=== PATIENT | male | born 1970 | race African-American/Black ===

== ENCOUNTER 2020-09-03 06:34 | Outpatient (REF) | payer OTHER, SELFPAY ==
[2020-09-03 07:28] LABS: Mean Corpuscular HGB Conc 34.3 g/dl (31.0-36.0); Mean Corpuscular Volume 84.6 fL (80-98); Mean Platelet Volume 11.8 fL (9.4-12.4); Platelet Count 165 X10*3/uL (160-400); Red Blood Count 2.41 X10*6/uL (4.60-5.80); Red Cell Distribution Width 15.8 % (11.0-16.0); White Blood Count 7.1 X10*3/uL (4.8-10.8)
[2020-09-03 08:07] LABS: Alanine Aminotransferase 30 U/L (0-40); Albumin Level 3.9 g/dL (3.5-5.0); Alkaline Phosphatase 63 U/L (39-117); Anion Gap 22 (12-20); Aspartate Amino Transferase 27 U/L (5-37); Bilirubin Total 0.5 mg/dL (0.0-1.0); Blood Urea Nitrogen 110 mg/dL (9-16); Calcium 7.8 mg/dL (8.4-10.2); Carbon Dioxide 18 mmol/L (22-29); Chloride 98 mmol/L (96-108); Estimated Glomerular Filt Rate 5; Glucose Fasting 411 mg/dL (60-99); Potassium 6.1 mmol/l (3.3-5.1); Sodium 132 mmol/L (135-145); Total Protein 5.1 g/dL (6.5-8.0)
[2020-09-03 08:18] LABS: Hematocrit 20.4 % (42-52)
== END 2020-09-03 06:35 | disposition home or self-care (01) ==
LOC: HO.MMNH1L 06:34
PROVIDERS: Visit Provider Internal Medicine
DX: Z20.822 Contact with and (suspected) exposure to COVID-19 (principal)
CPT/HCPCS: 36415; 80053; 85027; 85060

== ENCOUNTER 2021-01-30 14:22 | Emergency (ER) | payer OTHER, SELFPAY ==
--- NOTE | ~2021-01-30 | CT_ITS ---
Examination: CT knee LT wo con Indication: Status post fall increased pain unable to ambulate, xray neg Comparison: No pertinent prior studies are currently available for comparison. Technique: Multiple serial thin slice helical CT scan images through the left knee obtained. This CT examination was performed using dose optimization techniques as appropriate, variously including the following: *Automated exposure control *Adjustment of mA and/or kV according to patient size (this includes techniques or standardized protocols for targeted exams where dose is matched to indication/reason for exam; i.e. extremities or head) *Use of iterative reconstruction technique Findings: Moderately large joint effusion. Mild degenerative changes with tiny osteophyte formation seen but I do not appreciate any acute fracture or dislocation. Extensive vascular calcification present. Mild prepatellar soft tissue swelling noted. CT/CT knee LT wo con Impression: Large joint effusion. Mild degenerative changes but no acute fracture or dislocation. MRI may be helpful to better evaluate the underlying soft tissues of the knee. Mild prepatellar soft tissue swelling.
[2021-01-30 14:33] VITALS: BP 151/75; PULSE 86; RESP 18; TEMP 36.9; O2SAT 97; BMI 26.1
--- NOTE | 2021-01-30 16:31 | ED_ITS ---
HPI - Fall General Chief Complaint: Fall <Jasen Toth MD - Last Filed: 01/31/21 00:52> Stated Complaint: L LEG AND KNEE ISSUE <Jasen Toth MD - Last Filed: 01/31/21 00:52> Time Seen by Provider: 01/30/21 16:31 <Jasen Toth MD - Last Filed: 01/31/21 00:52> Source: patient <Jasen Toth MD - Last Filed: 01/31/21 00:52> Mode of arrival: wheelchair <Jasen Toth MD - Last Filed: 01/31/21 00:52> Limitations: no limitations <Jasen Toth MD - Last Filed: 01/31/21 00:52> History of Present Illness HPI Narrative: Patient's history of end-stage renal disease on dialysis apparently fell last week landed on his left knee was good for 4 days and since yesterday unable to walk because the pain knees left knee is giving out been falling since yesterday evening fell about 4 times since then. Patient went to [facility] was waiting in the waiting area at the x-ray done which was negative for fracture but patient could not wait longer and she came here no other injuries patient's apartment is 2nd floor has 13 steps to reach to his room. Patient denies any history of joint pains in the past no history of gout no fever or chills <Jasen Toth MD - Last Filed: 01/31/21 00:52> MD complaint: fall <Jasen Toth MD - Last Filed: 01/31/21 00:52> Related Data Home Medications: Home Medications Medication Instructions Recorded Confirmed amlodipine 10 mg PO DAILY 01/30/21 01/31/21 brimonidine 1 drp OPHTHALMIC (EYE) BID 01/30/21 01/30/21 clonidine HCl 0.1 mg PO BID 01/30/21 01/31/21 ergocalciferol (vitamin D2) 1 cap PO DE OLIVEIRA 01/30/21 01/30/21 insulin lispro [Humalog U-100 500 unit SUBCUT Q3D 01/30/21 01/30/21 Insulin] ipratropium bromide 1 spray INTRANASAL BEDTIME PRN 01/30/21 01/30/21 latanoprost 1 drp OPHTHALMIC (EYE) BEDTIME 01/30/21 01/30/21 meclizine 25 mg PO TID PRN 01/30/21 01/31/21 mycophenolate sodium 3 tab PO BID 01/30/21 01/30/21 omeprazole 20 mg PO DAILY 01/30/21 01/30/21 prednisone 5 mg PO DAILY 01/30/21 01/30/21 sevelamer carbonate 800 mg PO TID 01/30/21 01/31/21 subcutaneous insulin pump [MiniMed 01/30/21 01/30/21 670G Insulin Pump] gabapentin 600 mg PO TID 01/31/21 01/31/21 <Jasen Toth MD - Last Filed: 01/31/21 00:52> Allergies/Adverse Reactions: Allergies Allergy/AdvReac Type Severity Reaction Status Date / Time cefazolin [From ANCEF] Allergy Severe ? Unverified 05/11/20 16:58 ALLERGY-COUGH,SOB fentanyl [FENTANYL] Allergy Severe ? ALLERGY, Unverified 05/11/20 16:58 COUGH,SOB <Jasen Toth MD - Last Filed: 01/31/21 00:52> Review of Systems Review of Systems: Constitutional : No Weight loss, No Fever, No Chills ENT/Mouth : No sore throat, No Rhinorrhea Eyes: No Eye Pain, No Swelling Cardiovascular : No Chest Pain, no palpitations Respiratory : No Cough, No Sputum, no shortness of breath Gastrointestinal : no Nausea, No Vomiting, No Diarrhea, No abdominal Pain, no black stools Genitourinary : No Dysuria, No Urinary Frequency Musculoskeletal : ++ joint pain, No Myalgias, No Joint Swelling Skin : No Skin Lesions, No rash Neuro : No Weakness, No Numbness, No Dizziness, No Headache Psych : No Anxiety/Panic, No Depression Heme/Lymph: No Bruising, No Lymphadenopathy Endocrine : No Polyuria, No Polydipsia All other systems reviewed and are negative <Jasen Toth MD - Last Filed: 01/31/21 00:52> [facility] Social History Social History: Social History Advance Directives: Yes Advance Directives on File: Yes Advance Directives Date on File: 01/31/21 <Jasen Toth MD - Last Filed: 01/31/21 00:52> Physical Exam Vital Signs: Vital Signs: Last Vital Signs Temp 98.3 F 01/31/21 21:21 Pulse 83 01/31/21 21:21 Resp 02/01/21 00:00 BP 148/66 H 01/31/21 21:21 Pulse Ox 97 01/31/21 21:21 Body Mass Index 26.1 <Jasen Toth MD - Last Filed: 01/31/21 00:52> Vital Signs: Last Vital Signs Temp 98.3 F 01/31/21 21:21 Pulse 83 01/31/21 21:21 Resp 02/01/21 00:00 BP 148/66 H 01/31/21 21:21 Pulse Ox 97 01/31/21 21:21 Body Mass Index 26.1 <WILI Mcdaniel - Last Filed: 01/31/21 08:24> Vital Signs: Last Vital Signs Temp 98.3 F 01/31/21 21:21 Pulse 83 01/31/21 21:21 Resp 02/01/21 00:00 BP 148/66 H 01/31/21 21:21 Pulse Ox 97 01/31/21 21:21 Body Mass Index 26.1 <WILI Tomlinson - Last Filed: 02/01/21 08:39> Const: General: healthy appearing, comfortable and no acute distress <Jasen Toth MD - Last Filed: 01/31/21 00:52> Orientation/consciousness: patient oriented x3 <Jasen Toth MD - Last Filed: 01/31/21 00:52> HENMT: Head: Yes normocephalic and Yes atraumatic <Jasen Toth MD - Last Filed: 01/31/21 00:52> Eyes: General: appearance normal, both eyes and all related structures <Jasen Toth MD - Last Filed: 01/31/21 00:52> Neck: Neck: Yes normal visual inspection, Yes full ROM and No midline deformity <Jasen Toth MD - Last Filed: 01/31/21 00:52> Chest: Other: Shiley catheter in right chest wall <Jasen Toth MD - Last Filed: 01/31/21 00:52> Chest palpation & inspection: normal inspection of the chest <Jasen Toth MD - Last Filed: 01/31/21 00:52> Resp: Effort & Inspection: normal respiratory effort <Jasen Toth MD - Last Filed: 01/31/21 00:52> Auscultation: clear to auscultation bilaterally <Jasen Toth MD - Last Filed: 01/31/21 00:52> Cardio: Palpation: normal PMI <Jasen Toth MD - Last Filed: 01/31/21 00:52> Rate: regular rate <Jasen Toth MD - Last Filed: 01/31/21 00:52> Rhythm: regular rhythm <Jasen Toth MD - Last Filed: 01/31/21 00:52> Heart sounds: S1 normal heart sound present and S2 normal heart sound present <MD Moises Jimenez Last Filed: 01/31/21 00:52> GI: Inspection: Yes normal to inspection <Jasen Toth MD - Last Filed: 01/31/21 00:52> Palpation (GI): Soft to palpation and nontender <Jasen Toth MD - Last Filed: 01/31/21 00:52> Auscultation: normal bowel sounds <Jasen Toth MD - Last Filed: 01/31/21 00:52> : General: Yes no CVA tenderness <Jasen Toth MD - Last Filed: 01/31/21 00:52> Back/Spine/Pelvis: Back: no CVA tenderness <Jasen Toth MD - Last Filed: 01/31/21 00:52> Thoracic/Lumbar Spine: thoracic and lumbar spine normal to inspection <Jasen Toth MD - Last Filed: 01/31/21 00:52> Neuro: General: patient oriented x3 and no focal motor deficits <MD Moises Jimenez Last Filed: 01/31/21 00:52> Extrem: General: Yes normal to inspection <MD Moises Jimenez Last Filed: 01/31/21 00:52> Course Course Course Narrative: Physician observation started at 8am. Patient placed in [facility] because patient is awaiting placement to short term rehab. He was seen by physical therapy who is recommending rehab. At the time observation was started patient's vital signs were stable. Patient is alert and oriented. c/o left knee pain. PRN oxycodone ordered. Will need to f/u with Ortho. Neuro exam is non- focal. CV: RRR and lungs are clear. Will continue to monitor. <WILI Mcdaniel - Last Filed: 01/31/21 08:24> MDM - Fall MDM Narrative Medical decision making narrative: Patient with left knee injury without any fracture in x-ray CT scan done which was also negative for any fracture but showed moderate amount of knee effusion. Patient able to ambulate even with walker and assistance because of pain plan to send the patient to rehab as patient least 2nd floor and unable to go to his room and been falling multiple times because of pain and legs giving out <Jasen Toth MD - Last Filed: 01/31/21 00:52> Medical Records Attestation: I reviewed the patient's medical records. <Jasen Toth MD - Last Filed: 01/31/21 00:52> Lab Data Attestation: I reviewed the patient's lab results. <Jasen Toth MD - Last Filed: 0 01/31/21 00:52> Result diagrams: : 01/30/21 19:37 01/30/21 19:37 <Jasen Toth MD - Last Filed: 01/31/21 00:52> Labs: Lab Results 01/30/21 01/30/21 01/30/21 Range/Units 19:23 19:37 19:37 WBC 3.1 L (4.8-10.8) X10*3/uL RBC 2.78 L (4.60-5.80) X10*6/uL Hgb 7.8 L (14.0-18.0) g/dl Hct 25.2 L D (42-52) % MCV 90.6 (80-98) fL MCH 28.1 (27.0-33.0) pg MCHC 31.0 (31.0-36.0) g/dl RDW 14.6 (11.0-16.0) % Plt Count 197 (160-400) X10*3/uL MPV 10.0 (9.4-12.4) fL Immature Gran % (Auto) Cancelled Neut % (Auto) Cancelled Lymph % (Auto) Cancelled [place] % (Auto) Cancelled Eos % (Auto) Cancelled Baso % (Auto) Cancelled Lymph # (Auto) Cancelled [place] # (Auto) Cancelled Eos # (Auto) Cancelled Baso # (Auto) Cancelled Abs Immat Gran (auto) Cancelled Absolute Neuts (auto) Cancelled Absolute Nucleated RBC 0.000 (0.0-0.012) X10*3/uL Nucleated RBC % (auto) 0.0 (0.0-0.2) /100WBC Neutrophils % (Manual) 76 H (45-73) % Band Neutrophils % 6 H (3-5) % Lymphocytes % (Manual) 8 L (20-40) % Monocytes % (Manual) 7 (2-11) % Basophils % (Manual) 1 (0-1) % Myelocytes % 1 % Promyelocytes % 1 % Abs Neuts (Manual) 2.5 (2.2-7.9) X10*3/uL Lymphocytes # (Manual) 0.2 L (0.6-4.8) X10*3/uL Monocytes # (Manual) 0.2 (0.0-1.2) X10*3/uL Platelet Estimate NORMAL (NORMAL) Plt Morphology Comment NORMAL RBC Morphology NOTED Polychromasia 1+ (0-2) /OIF Microcytosis 1+ (5-14) /OIF Tear Drop Cells 1+ (0-2) /OIF Sodium 136 (135-145) mmol/L Potassium 3.7 (3.3-5.1) mmol/L Chloride 97 (96-108) mmol/L Carbon Dioxide 26 (22-29) mmol/L Anion Gap 17 (12-20) BUN 29 H D (9-16) mg/dL Creatinine 4.25 H* (0.5-1.4) mg/dL Estim Creat Clear Calc 20.1 Estimated GFR 15 Random Glucose 146 H (60-115) mg/dL Calcium 9.1 D (8.4-10.2) mg/dL COVID-19 (BALDEV) Negative (Negative) COVID-19 Clin Com See Note <Jasen Toth MD - Last Filed: 01/31/21 00:52> Lab Results 01/30/21 01/30/21 01/30/21 Range/Units 19:23 19:37 19:37 WBC 3.1 L (4.8-10.8) X10*3/uL RBC 2.78 L (4.60-5.80) X10*6/uL Hgb 7.8 L (14.0-18.0) g/dl Hct 25.2 L D (42-52) % MCV 90.6 (80-98) fL MCH 28.1 (27.0-33.0) pg MCHC 31.0 (31.0-36.0) g/dl RDW 14.6 (11.0-16.0) % Plt Count 197 (160-400) X10*3/uL MPV 10.0 (9.4-12.4) fL Immature Gran % (Auto) Cancelled Neut % (Auto) Cancelled Lymph % (Auto) Cancelled [place] % (Auto) Cancelled Eos % (Auto) Cancelled Baso % (Auto) Cancelled Lymph # (Auto) Cancelled [place] # (Auto) Cancelled Eos # (Auto) Cancelled Baso # (Auto) Cancelled Abs Immat Gran (auto) Cancelled Absolute Neuts (auto) Cancelled Absolute Nucleated RBC 0.000 (0.0-0.012) X10*3/uL Nucleated RBC % (auto) 0.0 (0.0-0.2) /100WBC Neutrophils % (Manual) 76 H (45-73) % Band Neutrophils % 6 H (3-5) % Lymphocytes % (Manual) 8 L (20-40) % Monocytes % (Manual) 7 (2-11) % Basophils % (Manual) 1 (0-1) % Myelocytes % 1 % Promyelocytes % 1 % Abs Neuts (Manual) 2.5 (2.2-7.9) X10*3/uL Lymphocytes # (Manual) 0.2 L (0.6-4.8) X10*3/uL Monocytes # (Manual) 0.2 (0.0-1.2) X10*3/uL Platelet Estimate NORMAL (NORMAL) Plt Morphology Comment NORMAL RBC Morphology NOTED Polychromasia 1+ (0-2) /OIF Microcytosis 1+ (5-14) /OIF Tear Drop Cells 1+ (0-2) /OIF Sodium 136 (135-145) mmol/L Potassium 3.7 (3.3-5.1) mmol/L Chloride 97 (96-108) mmol/L Carbon Dioxide 26 (22-29) mmol/L Anion Gap 17 (12-20) BUN 29 H D (9-16) mg/dL Creatinine 4.25 H* (0.5-1.4) mg/dL Estim Creat Clear Calc 20.1 Estimated GFR 15 Random Glucose 146 H (60-115) mg/dL Calcium 9.1 D (8.4-10.2) mg/dL COVID-19 (BALDEV) Negative (Negative) COVID-19 Clin Com See Note <WILI Mcdaniel - Last Filed: 01/31/21 08:24> Lab Results 01/30/21 01/30/21 01/30/21 Range/Units 19:23 19:37 19:37 WBC 3.1 L (4.8-10.8) X10*3/uL RBC 2.78 L (4.60-5.80) X10*6/uL Hgb 7.8 L (14.0-18.0) g/dl Hct 25.2 L D (42-52) % MCV 90.6 (80-98) fL MCH 28.1 (27.0-33.0) pg MCHC 31.0 (31.0-36.0) g/dl RDW 14.6 (11.0-16.0) % Plt Count 197 (160-400) X10*3/uL MPV 10.0 (9.4-12.4) fL Immature Gran % (Auto) Cancelled Neut % (Auto) Cancelled Lymph % (Auto) Cancelled [place] % (Auto) Cancelled Eos % (Auto) Cancelled Baso % (Auto) Cancelled Lymph # (Auto) Cancelled [place] # (Auto) Cancelled Eos # (Auto) Cancelled Baso # (Auto) Cancelled Abs Immat Gran (auto) Cancelled Absolute Neuts (auto) Cancelled Absolute Nucleated RBC 0.000 (0.0-0.012) X10*3/uL Nucleated RBC % (auto) 0.0 (0.0-0.2) /100WBC Neutrophils % (Manual) 76 H (45-73) % Band Neutrophils % 6 H (3-5) % Lymphocytes % (Manual) 8 L (20-40) % Monocytes % (Manual) 7 (2-11) % Basophils % (Manual) 1 (0-1) % Myelocytes % 1 % Promyelocytes % 1 % Abs Neuts (Manual) 2.5 (2.2-7.9) X10*3/uL Lymphocytes # (Manual) 0.2 L (0.6-4.8) X10*3/uL Monocytes # (Manual) 0.2 (0.0-1.2) X10*3/uL Platelet Estimate NORMAL (NORMAL) Plt Morphology Comment NORMAL RBC Morphology NOTED Polychromasia 1+ (0-2) /OIF Microcytosis 1+ (5-14) /OIF Tear Drop Cells 1+ (0-2) /OIF Sodium 136 (135-145) mmol/L Potassium 3.7 (3.3-5.1) mmol/L Chloride 97 (96-108) mmol/L Carbon Dioxide 26 (22-29) mmol/L Anion Gap 17 (12-20) BUN 29 H D (9-16) mg/dL Creatinine 4.25 H* (0.5-1.4) mg/dL Estim Creat Clear Calc 20.1 Estimated GFR 15 Random Glucose 146 H (60-115) mg/dL Calcium 9.1 D (8.4-10.2) mg/dL COVID-19 (BALDEV) Negative (Negative) COVID-19 Clin Com See Note <WILI Tomlinson - Last Filed: 02/01/21 08:39> Imaging Data CT scan left knee: Attestation: I personally reviewed and interpreted this imaging study as follows: <Jasen Toth MD - Last Filed: 01/31/21 00:52> Radiologist's impression: [address] [id number] Scan ReportSigned Patient: Wilfrido Garza JMR#: [id number]: 1970Acct:[id number]/Sex: 50 / MADM Date: 01/30/21Loc: [address]: Ordering Physician: Jasen Toth MD Date of Service: 01/30/21 Procedure(s): CT knee LT wo con Accession Number(s): [id number] cc: Jasen Toth MD~ Examination: CT knee LT wo con Indication: Status post fall increased pain unable to ambulate, xray neg Comparison: No pertinent prior studies are currently available for comparison. Technique: Multiple serial thin slice helical CT scan images through the left knee obtained. This CT examination was performed using dose optimization techniques as appropriate, variously including the following: *Automated exposure control *Adjustment of mA and/or kV according to patient size (this includes techniques or standardized protocols for targeted exams where dose is matched to indication/reason for exam; i.e. extremities or head) *Use of iterative reconstruction technique Findings: Moderately large joint effusion. Mild degenerative changes with tiny osteophyte formation seen but I do not appreciate any acute fracture or dislocation. Extensive vascular calcification present. Mild prepatellar soft tissue swelling noted. CT/CT knee LT wo con Impression: Large joint effusion. Mild degenerative changes but no acute fracture or dislocation. MRI may be helpful to better evaluate the underlying soft tissues of the knee. Mild prepatellar soft tissue swelling. Dictated By:LINDA ROSSI MDSigned By:<Electronically signed by LINDA ROSSI MD in OV> <Jasen Toth MD - Last Filed: 01/31/21 00:52> Discharge Plan Discharge Clinical Impression: Chronic kidney disease with end stage renal failure on dialysis, Arthritis of knee, left Anemia, chronic renal failure Qualifiers: Chronic kidney disease stage: stage 5 Qualified Code(s): N18.5 - Chronic kidney disease, stage 5 <Jasen Toth MD - Last Filed: 01/31/21 00:52> Patient Disposition: [facility] <Jasen Toth MD - Last Filed: 01/31/21 00:52> Instructions: Swollen Knee Joint (ED) <Jasen Toth MD - Last Filed: 01/31/21 00:52> Additional Instructions: Your CT scan showed fluid around the knee joint, which is most likely due to the fall. Recommend PARESH wrap for compression and support. You may bear weight as tolerated. Take oxycodone as needed for severe pain. Recommend following up with the Orthopedic doctors for further management - number listed below. <Jasen Toth MD - Last Filed: 01/31/21 00:52> Prescriptions: No Action latanoprost 0.005 % drops 1 drp ophthalmic (eye) BEDTIME RF: 0 clonidine HCl 0.1 mg tablet 0.1 mg PO BID RF: 0 prednisone 5 mg tablet 5 mg PO DAILY RF: 0 meclizine 25 mg tablet 25 mg PO TID PRN (Reason: Vertigo) RF: 0 amlodipine 10 mg tablet 10 mg PO DAILY RF: 0 brimonidine 0.2 % drops 1 drp ophthalmic (eye) BID RF: 0 omeprazole 20 mg capsule,delayed release(DR/EC) 20 mg PO DAILY RF: 0 ergocalciferol (vitamin D2) 1,250 mcg (50,000 unit) capsule 1 cap PO DE OLIVEIRA RF: 0 ipratropium bromide 21 mcg (0.03 %) spray,non-aerosol 1 spray intranasal BEDTIME PRN (Reason: Allergy Symptoms) RF: 0 mycophenolate sodium 180 mg tablet,delayed release (DR/EC) 3 tab PO BID RF: 0 sevelamer carbonate 800 mg tablet 800 mg PO TID RF: 0 insulin lispro [Humalog U-100 Insulin] 100 unit/mL Solution 500 unit SUBCUT Q3D RF: 0 (DME) MiniMed 670G Insulin Pump Misc MISCELLANEOUS RF: 0 gabapentin 600 mg tablet 600 mg PO TID RF: 0 <Jasen Toth MD - Last Filed: 01/31/21 00:52> Referrals: Master Hector MD [Physician] - 2 days (large left knee effusion) <Jasen Toth MD - Last Filed: 01/31/21 00:52> ED Observation ED Observation Progress Notes 1: Progress Note: 02/01/21 - 08:28 WILI Tomlinson - physician observation continued. Vital signs remained stable within normal limits. Patient had an uneventful night. This morning the patient complained to the nurse that he wanted medication for his left knee pain and reported that the 5 mg oxycodone every 6 hours that they are giving him is not providing much symptomatic relief and is requesting different pain medications. He read ports that the Paresh bandage was making it worse therefore he took off the Paresh bandage. He just finished eating breakfast. Denied any additional complaints or concerns. No focal neural deficits are noted. Lungs clear to auscultation. CV RRR. Abdomen is soft and nontender. I changed the patient's 5 mg oxycodone to every 4 hours and also provided an order for 10 mg extended release oxycodone b.i.d. to better manage the patient's pain. Patient was able to reposition himself without difficulty in and out of bed. Case management with possible placement to [facility] most likely patient will go today. Will continue to monitor until then. <WILI Tomlinson - Last Filed: 02/01/21 08:39>
[2021-01-30] MEDS: oxyCODONE HCl Immed Release 5 MG TABLET 10 MG PO (17:17)
--- NOTE | 2021-01-30 19:02 | MHC.CM.ED ---
CM met with patient at request of Dr. Toth.Per Dr. Toth, knee xray negative and pt cannot ambulate or bear weight on his left leg. Asked CM to speak with pt. Pt tells CM he lives alone, uses a walker and has dialysis at [facility] on Friday, and Friday. Pt tells CM that he fell on and his left knee was bothering him, but he could walk with his walker. Progressively got worse by Friday and today he cannot bear weight on his left leg. Pt tells CM he fell 4 times last night and twice today. Pt did have dialysis today. Pt has history of kidney failure with kidney transplant in 2010. Pt tells CM the kidney is not working and has surgery scheduled at [facility] on 02/14 to remove it. Pt has hx of vertigo since 2018 when he had a shingles outbreak. Pt has diabetes and has an insulin pump. Pt has hx diabetic neuropathy and glaucoma. Pt also has hypertension and high cholesterol. Pt attempted to get up with walker to stand and was unable to bear weight on his left leg. aware. Will order at CT scan. CM spoke with MD regarding need for PT evaluation regardless of CT results, as pt is not safe to go home. Report of above reported to Dominic JESSICA. CM to follow for d/c needs.
[2021-01-30 19:10] VITALS: BP 143/85; PULSE 97; RESP 16; O2SAT 98
[2021-01-30 19:13] VITALS: BP 143/85; PULSE 94; RESP 16
--- NOTE | 2021-01-30 19:27 | MHC.CM.ED ---
CM spoke with Dr. Toth. CT of knee and basic labs ordered. Pt aware of plan of care. CM to follow for d/c needs.
[2021-01-30 19:43] LABS: Hematocrit 25.2 % (42-52); Hemoglobin 7.8 g/dl (14.0-18.0); Mean Corpuscular Hemoglobin 28.1 pg (27.0-33.0); Mean Corpuscular Volume 90.6 fL (80-98); Platelet Count 197 X10*3/uL (160-400); Red Blood Count 2.78 X10*6/uL (4.60-5.80); Red Cell Distribution Width 14.6 % (11.0-16.0); White Blood Count 3.1 X10*3/uL (4.8-10.8)
[2021-01-30 19:56] LABS: COVID-19 Test Negative (Negative); IDNOW Serial# 9DD0AD1C
[2021-01-30 20:21] LABS: Anion Gap 17 (12-20); Blood Urea Nitrogen 29 mg/dL (9-16); Calcium 9.1 mg/dL (8.4-10.2); Carbon Dioxide 26 mmol/L (22-29); Chloride 97 mmol/L (96-108); Creatinine Clr Calc Pharmacy 20.1; Estimated Glomerular Filt Rate 15; Glucose Random 146 mg/dL (60-115); Potassium 3.7 mmol/L (3.3-5.1); Sodium 136 mmol/L (135-145)
[2021-01-30 21:19] LABS: Band Neutrophils Percent 6 % (3-5); Basophils Percent Manual 1 % (0-1); Lymphocytes Absolute Manual 0.2 X10*3/uL (0.6-4.8); Lymphocytes Percent Manual 8 % (20-40); Monocytes Absolute Manual 0.2 X10*3/uL (0.0-1.2); Monocytes Percent Manual 7 % (2-11); Myelocytes Percent 1 %; Neutrophils Absolute Manual 2.5 X10*3/uL (2.2-7.9); Neutrophils Percent Manual 76 % (45-73); Promyelocytes Percent 1 %
[2021-01-30 21:22] LABS: Polychromasia 1+ (0-2) /OIF; RBC Morphology NOTED
[2021-01-30 21:24] LABS: Tear Drop Cells 1+ (0-2) /OIF
[2021-01-30 21:25] LABS: Platelet Estimate NORMAL (NORMAL); Platelet Morphology Comment NORMAL
[2021-01-30 21:26] LABS: Microcytosis 1+ (5-14) /OIF
--- NOTE | 2021-01-30 22:23 | HE.PHANOTE ---
Pharmacy has completed the medication reconciliation and there were no significant medication issues requiring provider attention.
[2021-01-31] VITALS (12 sets, daily range): BP systolic 105–148; BP diastolic 54–83; PULSE 81–92; RESP 16–17; TEMP 36.8–37.2; O2SAT 94–99
[2021-01-31] MEDS: oxyCODONE HCl Immed Release 5 MG TABLET PO ×3 (00:40→08:46)
[2021-01-31] MEDS: Omeprazole 20 MG CAPSULE.DR PO (07:03)
[2021-01-31] MEDS: Subcutaneous Insulin Pump 1 EACH SUBCUT ×4 (07:39→21:14)
--- NOTE | 2021-01-31 10:04 | MHC.CM.ED ---
Patient remains in ER. Physical therapy eval completed. Short term rehab is recommended. Patient requesting referral [facility] Referral made via [employer]. Continue to monitor for d/c needs. Patient had 2nd Pfizer about a month ago.
[2021-01-31] MEDS: Mycophenolate Sodium 180 MG TABLET.DR 540 MG PO ×2 (10:40→21:13)
[2021-01-31] MEDS: cloNIDine HCL 0.1 MG TABLET PO ×2 (10:40→21:12)
[2021-01-31] MEDS: amLODIPine Besylate 10 MG TABLET PO (10:41)
[2021-01-31] MEDS: predniSONE 5 MG TABLET PO (10:41)
[2021-01-31] MEDS: Gabapentin 600 MG TABLET 1200 MG PO (10:41)
[2021-01-31] MEDS: Brimonidine Tartrate 0.2% Oph 5 ML BOTTLE 1 DROP EYE-BOTH ×2 (10:42→21:12)
[2021-01-31] MEDS: Sevelamer Carbonate Tablet 800 MG TABLET PO ×3 (10:42→21:13)
[2021-01-31] MEDS: Meclizine HCl 25 MG TABLET PO ×2 (10:42→16:42)
--- NOTE | 2021-01-31 11:33 | MHC.CM.ED ---
Attempted to meet with patient to updated on discharge plan. Patient is currently sleeping. Will attempt to meet again. Continue to monitor for d/c needs.
--- NOTE | 2021-01-31 16:40 | MHC.CM.ED ---
CM met with patient. aware that at this time, we have no bed offers from [facility] or [facility]. CM to check in with [facility] tomorrow. Pt understands that we must refer to facilities that accept his insurance and that offer dialysis, to prevent him from being billed for transportation 3 times a week. CM will follow for d/c needs.
[2021-01-31] MEDS: Gabapentin 600 MG TABLET 300 MG PO ×2 (17:07→21:14)
--- NOTE | 2021-01-31 17:09 | MHC.CM.ED ---
KATHLEEN received a call from Millicent moreno from [facility]. She tells me that they will do everything in their power to accommodate this pt and have a bed for him tomorrow. They may need to move patients around. Millicent requests that we let her know if [facility] has a bed tomorrow. Asked that Melissa Patel CM call her in the am. Melissa aware. KATHLEEN will continue to follow for d/c needs.
--- NOTE | 2021-01-31 19:37 | PC.NURSE ---
REPORT TAKEN FROM VASILE Lopez RN FIRST CONTACT WITH PT. RESTING IN BED EYES CLOSED, SKIN PWD RESPIRATIONS EVEN UNLABORED. CASE MANAGEMENT REFERRAL- ? POSSIBLE PLACEMENT AT [facility] TOMORROW. WILL CONTINUE TO MONITOR.
[2021-01-31] MEDS: Latanoprost 0.005 % Ophth Sol 2.5 ML DROPS 1 DROP EYE-BOTH (21:12)
--- NOTE | 2021-01-31 22:26 | PC.NURSE ---
PT MEDICATED WITHE PM MEDS, WARM BLANKET GIVEN. OFFERS NO COMPLAINTS AT THIS TIME. INQUIRING ABOUT DIALYSIS TOMORROW- YANA WANG STATES PT WILL BE GOING BACK TO [facility] TOMORROW AND RECIEVING DIALYSIS THERE. PT NOTIFIED AND VERBALIZED UNDERSTANDING.VSS, WILL CONTINUE TO MONITOR.
--- NOTE | 2021-01-31 23:50 | PC.NURSE ---
PT CONTINUES TO REST IN BED, EYES CLOSED, SKIN PWD, RESPIRATIONS EVEN UNLABORED. NO DISTRESS NOTED. WILL CONTINUE TO MONITOR.
[2021-02-01] VITALS: RESP 16
--- NOTE | 2021-02-01 02:13 | PC.NURSE ---
PT RESTING IN BED SKIN PWD RESPIRATIONS EVEN UNLABORED, NO DISTRESS NOTED. AWAITING CASE MANAGEMENT PLACEMENT TOMORROW.
[2021-02-01] MEDS: oxyCODONE HCl Immed Release 5 MG TABLET PO ×2 (03:56→16:18)
--- NOTE | 2021-02-01 04:09 | PC.NURSE ---
PT MEDICATED PRN FOR LEFT KNEE PAIN 5/10. PILLOW PLACED UNDER LEG WITH POSITIVE RELIEF.
[2021-02-01] MEDS: Omeprazole 20 MG CAPSULE.DR PO (06:52)
[2021-02-01] MEDS: Subcutaneous Insulin Pump 1 EACH SUBCUT ×3 (07:35→17:00)
--- NOTE | 2021-02-01 07:37 | PC.NURSE ---
report taken from JASKARAN Bates. pt in room, requesting pain medication for L knee. Pt states the Oxy they gave me last time didn't help I think I need an increased dose . t/w offered alternative pain management to which pt refused all. t/w took the Paresh bandage off the L knee as pt reports the paresh bandage made it worse . pt eating breakfast, requesting pain medications, pt able to reposition himself without difficulty into and out of bed. will speak with PA coming on regarding pain medications.
--- NOTE | 2021-02-01 08:37 | MHC.CM.ED ---
Patient remains in ER. Spoke with Delores at [facility]. They have to make some bed changes and will be able to accommodate the patient today once insurance auth has been obained. Continue to monitor for d/c needs.
[2021-02-01 08:50] VITALS: BP 151/75; PULSE 83; RESP 16; O2SAT 97
[2021-02-01] MEDS: Brimonidine Tartrate 0.2% Oph 5 ML BOTTLE 1 DROP EYE-BOTH (08:58)
[2021-02-01] MEDS: Gabapentin 600 MG TABLET PO ×2 (09:40→16:16)
[2021-02-01] MEDS: predniSONE 5 MG TABLET PO (09:40)
[2021-02-01] MEDS: Mycophenolate Sodium 180 MG TABLET.DR 540 MG PO (09:40)
[2021-02-01] MEDS: Sevelamer Carbonate Tablet 800 MG TABLET PO ×2 (09:40→16:15)
[2021-02-01 09:53] VITALS: BP 151/75; PULSE 83
[2021-02-01] MEDS: amLODIPine Besylate 10 MG TABLET PO (09:53)
[2021-02-01] MEDS: cloNIDine HCL 0.1 MG TABLET PO (09:53)
[2021-02-01] MEDS: oxyCODONE HCl ER 10 MG TAB.ER.12H PO (09:54)
[2021-02-01 13:41] VITALS: BP 137/76; PULSE 81; RESP 16; O2SAT 96
[2021-02-01 15:09] LABS: Glucose, Whole Blood 94 mg/dL (60-115)
--- NOTE | 2021-02-01 15:43 | PC.NURSE ---
pt in room resting quietly. pt concerned regarding time he will be leaving as [facility] only has dialysis until 4:00 PM . awaiting insurance authorization to return to [facility]. Vitals otherwise stable.
[2021-02-01 15:48] VITALS: BP 134/74; PULSE 92; RESP 17; O2SAT 96
--- NOTE | 2021-02-01 16:18 | MHC.CM.ED ---
Insurance auth has been obtained by [facility]. Patient can leave at 5pm. Attempted to arrange [facility]. However they can not transport patient before 8pm. [facility] booked. Med nec with chart. Patient, Jaymie JESSICA and Nely RASHEED aware. Continue to monitor for d/c needs.
== END 2021-02-01 19:18 ==
PROVIDERS: Emergency Provider Internal Medicine; PCP Internal Medicine
DX: M25.462 Effusion, left knee (principal); M17.12 Unilateral primary osteoarthritis, left knee; R29.6 Repeated falls; N18.6 End stage renal disease; Z20.822 Contact with and (suspected) exposure to COVID-19; Z91.81 History of falling; Z79.899 Other long term (current) drug therapy; Z99.2 Dependence on renal dialysis
CPT/HCPCS: 36415; 73700; 80048; 82947; 85007; 85027; 87635; 97162; 99285

== ENCOUNTER 2021-02-20 11:47 | Emergency (ER) | payer OTHER, MEDICAID, SELFPAY ==
--- NOTE | ~2021-02-20 | XR_ITS ---
EXAMINATION: XR KNEE, LEFT CLINICAL INFORMATION: Fall. Re-injury. COMPARISON: Left knee CT dated 01/30/2021. TECHNIQUE: Four views of the left knee. FINDINGS: No acute fracture or dislocation. Tiny tricompartmental marginal osteophytes. No osseous erosion. Large joint effusion. Atherosclerotic calcifications. XR/XR knee LT 3V IMPRESSION: 1. Large joint effusion, increased when compared to the prior CT. 2. No acute fracture or dislocation. 3. Mild tricompartmental osteoarthritis is unchanged.
[2021-02-20 12:21] VITALS: BP 148/68; PULSE 92; RESP 18; TEMP 36.7; O2SAT 98; BMI 25.7
[2021-02-20 16:49] VITALS: BP 134/80; PULSE 94; RESP 16; TEMP 37.4; O2SAT 99
--- NOTE | 2021-02-20 17:03 | ED_ITS ---
HPI - General Adult General Chief complaint: General Medical Stated complaint: lt knee pain Time Seen by Provider: 02/20/21 16:47 Source: patient Mode of arrival: wheelchair Limitations: no limitations History of Present Illness HPI narrative: patient comes emergency room complaining of left-sided knee pain. Patient states he had a fall over 3 weeks ago, states that he was sent to [facility] for rehab. Patient was recently discharged home, less than a week. Patient states that he has a very hard time getting out of the chair or bed, cannot get around his house because they are so many stairs, patient has a difficult time getting to dialysis. Patient states yesterday he tripped and fell on his knee. Patient states that he does not feel safe at home, cannot get around his house even to go to the bathroom or to the kitchen. Patient requesting short-term rehab again. Related Data Home Medications Medication Instructions Recorded Confirmed amlodipine 10 mg PO DAILY 01/30/21 02/20/21 brimonidine 1 drp OPHTHALMIC (EYE) BID 01/30/21 02/20/21 clonidine HCl 0.1 mg PO BID 01/30/21 02/20/21 ergocalciferol (vitamin D2) 1 cap PO DE OLIVEIRA 01/30/21 02/20/21 insulin lispro [Humalog U-100 500 unit SUBCUT Q3D 01/30/21 02/20/21 Insulin] ipratropium bromide 1 spray INTRANASAL BEDTIME PRN 01/30/21 02/20/21 latanoprost 1 drp OPHTHALMIC (EYE) BEDTIME 01/30/21 02/20/21 meclizine 25 mg PO TID PRN 01/30/21 02/20/21 mycophenolate sodium 3 tab PO BID 01/30/21 02/20/21 omeprazole 20 mg PO DAILY 01/30/21 02/20/21 prednisone 5 mg PO DAILY 01/30/21 02/20/21 sevelamer carbonate 800 mg PO TID 01/30/21 02/20/21 subcutaneous insulin pump [MiniMed 01/30/21 02/20/21 670G Insulin Pump] gabapentin 600 mg PO TID 01/31/21 02/20/21 furosemide 1 tab PO DAILY 02/20/21 02/20/21 Previous Rx's Medication Instructions Recorded naloxone [Narcan] 4 mg INTRANASAL Q2M PRN #2 ea 02/01/21 Allergies Allergy/AdvReac Type Severity Reaction Status Date / Time cefazolin [From ANCEF] Allergy Intermediate ? Verified 02/20/21 12:19 ALLERGY-COUGH,SOB fentanyl [FENTANYL] Allergy Intermediate ? ALLERGY, Verified 02/20/21 12:19 COUGH,SOB Review of Systems Review of Systems: Constitutional : No Weight loss, No Fever, No Chills, No Night Sweats, No Fatigue, No Malaise ENT/Mouth : No Hearing loss, No Ear Pain, No Nasal Congestion, No Sinus Pain, No Hoarseness, No sore throat, No Rhinorrhea, No Swallowing Difficulty Eyes: No Eye Pain, No Swelling, No Redness, No Foreign Body, No Discharge, No Vision Changes Cardiovascular : No Chest Pain, No SOB, No Dyspnea on Exertion, No Orthopnea, No Edema, No Palpitations Respiratory : No Cough, No Sputum, No Wheezing, No Smoke Exposure, No Dyspnea Gastrointestinal : No Nausea, No Vomiting, No Diarrhea, No Constipation, No abdominal Pain, No Hematochezia, No Melena Genitourinary : no irregular bleeding, No Dysuria, No Urinary Frequency, No Hematuria, No Urinary Incontinence, No Urgency, No Flank Pain, No Urinary Flow Changes, No Hesitancy Musculoskeletal : Complaining of left-sided knee pain, No Myalgias, No Joint Swelling Skin : No Skin Lesions, No rash Neuro : No Weakness, No Numbness, No Paresthesias, No Loss of Consciousness, No Dizziness, No Headache Psych : No Anxiety/Panic, No Depression, No SI/HI/AH/VH, No Social Issues, Heme/Lymph: No Bruising, No Bleeding,No Lymphadenopathy Endocrine : No Polyuria, No Polydipsia, No Temperature Intolerance [facility] Past Medical History Medical History Diabetes Glaucoma HTN (hypertension) Kidney failure Kidney transplant rejection Neuropathy Social History Social History Alcohol intake: never Smoked in Last 30 Days: No Use of substances other than those prescribed or required for medical reasons: No Advance Directives: No Advance Directives Information Provided: No Advance Directives Date on File: 01/31/21 Physical Exam Vital Signs: Vital Signs: Last Vital Signs Temp 99.7 F 02/21/21 00:00 Pulse 96 02/21/21 00:00 Resp 18 02/21/21 00:00 BP 170/90 H 02/21/21 00:00 Pulse Ox 95 02/21/21 00:00 Body Mass Index 25.7 Appearance: Alert. Oriented X3. No acute distress. Eyes: Pupils equal, round and reactive to light. ENT: Pharynx normal. Neck: Normal inspection. Neck supple. No lymph nodes noted. No crepitus CVS: Normal heart rate and rhythm. Pulses normal. Normal S1 and S2 Respiratory: No respiratory distress. Breath sounds normal. No Wheezing. No rales Abdomen: Soft and nontender. No rigidity. No distention. good BS x4 Skin: Skin warm and dry. Normal skin color. Normal skin turgor. Extremities: chronic venous stasis bilaterally, left knee is swollen, patient is able to flex it to 45 degrees, seems to have a effusion on the left side Neuro: Oriented X 3. No motor deficit. No sensory deficit. Moving all extermities. No slurred speech. Course Course Course Narrative: Patient tolerated well the arthrocentesis, 41 mL were expressed. patient's arthrocentesis [place] [id number], etiology likely inflammatory rather than infectious. Patient's white blood cell count within normal limits, no fever, sepsis /joint sepsis is not suspected. Patient's hematology and chemistry at baseline. Patient is due for dialysis February 22 case management And physical therapy evaluation pending for possible placement. Sign-out given to Dr. Toth Procedures Bursa Procedures Time Out Performed: Yes Side of body: left Site of Procedure: prepatellar bursa XRAY Obtained: other Antisepsis Used: Chlorhexidine Local Anesthetic: lidocaine 2% Amount of anesthesia used (mL): 15 Fluid obtained (mL): 41 Fluid Type: cloudy and bloody Medical Decision Making Lab Data Result diagrams: 02/20/21 21:33 02/20/21 21:33 Labs: Lab Results 02/20/21 02/20/21 02/20/21 Range/Units 17:25 21:33 21:33 WBC 6.6 (4.8-10.8) X10*3/uL RBC 2.66 L (4.60-5.80) X10*6/uL Hgb 7.3 L (14.0-18.0) g/dl Hct 24.8 L (42-52) % MCV 93.2 (80-98) fL MCH 27.4 (27.0-33.0) pg MCHC 29.4 L (31.0-36.0) g/dl RDW 16.1 H (11.0-16.0) % Plt Count 278 D (160-400) X10*3/uL MPV 10.3 (9.4-12.4) fL Immature Gran % (Auto) 5.0 H (0.0-0.4) % Neut % (Auto) 74.9 H (45-73) % Lymph % (Auto) 5.3 L (20-40) % [place] % (Auto) 13.9 H (2-11) % Eos % (Auto) 0.6 (0-4) % Baso % (Auto) 0.3 (0-2) % Lymph # (Auto) 0.4 L (1.2-4.9) X10*3/uL [place] # (Auto) 0.9 (0.1-1.2) X10*3/uL Eos # (Auto) 0.0 (0.0-0.4) X10*3/uL Baso # (Auto) 0.0 (0.0-0.2) X10*3/uL Abs Immat Gran (auto) 0.33 H (0.00-0.03) X10*3/uL Absolute Neuts (auto) 5.0 (2.0-8.3) X10*3/uL Absolute Nucleated RBC 0.000 (0.0-0.012) X10*3/uL Nucleated RBC % (auto) 0.0 (0.0-0.2) /100WBC Sodium 136 (135-145) mmol/L Potassium 5.1 D (3.3-5.1) mmol/L Chloride 99 (96-108) mmol/L Carbon Dioxide 24 (22-29) mmol/L Anion Gap 18 (12-20) BUN 28 H (9-16) mg/dL Creatinine 3.10 H (0.5-1.4) mg/dL Estim Creat Clear Calc 27.5 Estimated GFR 21 Random Glucose 290 H D (60-115) mg/dL Calcium 8.4 D (8.4-10.2) mg/dL Total Bilirubin 0.2 (0.0-1.0) mg/dL Direct Bilirubin < 0.2 (0.0-0.5) mg/dL AST 35 (5-37) U/L ALT 11 (0-40) U/L Alkaline Phosphatase 128 H D (39-117) U/L Total Protein 6.9 D (6.5-8.0) g/dL Albumin 3.3 L (3.5-5.0) g/dL Synovial Source Synovial WBC X10*3/uL Synovial RBC X10*6/uL Synovial Neutrophils % Synovial Monocytes % COVID-19 (BALDEV) Negative (Negative) COVID-19 Clin Com See Note 02/21/21 Range/Units 00:02 WBC (4.8-10.8) X10*3/uL RBC (4.60-5.80) X10*6/uL Hgb (14.0-18.0) g/dl Hct (42-52) % MCV (80-98) fL MCH (27.0-33.0) pg MCHC (31.0-36.0) g/dl RDW (11.0-16.0) % Plt Count (160-400) X10*3/uL MPV (9.4-12.4) fL Immature Gran % (Auto) (0.0-0.4) % Neut % (Auto) (45-73) % Lymph % (Auto) (20-40) % Oz[place] % (Auto) (2-11) % Eos % (Auto) (0-4) % Baso % (Auto) (0-2) % Lymph # (Auto) (1.2-4.9) X10*3/uL [place] # (Auto) (0.1-1.2) X10*3/uL Eos # (Auto) (0.0-0.4) X10*3/uL Baso # (Auto) (0.0-0.2) X10*3/uL Abs Immat Gran (auto) (0.00-0.03) X10*3/uL Absolute Neuts (auto) (2.0-8.3) X10*3/uL Absolute Nucleated RBC (0.0-0.012) X10*3/uL Nucleated RBC % (auto) (0.0-0.2) /100WBC Sodium (135-145) mmol/L Potassium (3.3-5.1) mmol/L Chloride (96-108) mmol/L Carbon Dioxide (22-29) mmol/L Anion Gap (12-20) BUN (9-16) mg/dL Creatinine (0.5-1.4) mg/dL Estim Creat Clear Calc Estimated GFR Random Glucose (60-115) mg/dL Calcium (8.4-10.2) mg/dL Total Bilirubin (0.0-1.0) mg/dL Direct Bilirubin (0.0-0.5) mg/dL AST (5-37) U/L ALT (0-40) U/L Alkaline Phosphatase (39-117) U/L Total Protein (6.5-8.0) g/dL Albumin (3.5-5.0) g/dL Synovial Source knee Synovial WBC 44.060 X10*3/uL Synovial RBC 0.028 X10*6/uL Synovial Neutrophils 97 % Synovial Monocytes 3 % COVID-19 (BALDEV) (Negative) COVID-19 Clin Com Discharge Plan Discharge Clinical Impression: Effusion of knee Prescriptions: No Action latanoprost 0.005 % drops 1 drp ophthalmic (eye) BEDTIME RF: 0 clonidine HCl 0.1 mg tablet 0.1 mg PO BID RF: 0 prednisone 5 mg tablet 5 mg PO DAILY RF: 0 meclizine 25 mg tablet 25 mg PO TID PRN (Reason: Vertigo) RF: 0 amlodipine 10 mg tablet 10 mg PO DAILY RF: 0 brimonidine 0.2 % drops 1 drp ophthalmic (eye) BID RF: 0 omeprazole 20 mg capsule,delayed release(DR/EC) 20 mg PO DAILY RF: 0 ergocalciferol (vitamin D2) 1,250 mcg (50,000 unit) capsule 1 cap PO DE OLIVEIRA RF: 0 ipratropium bromide 21 mcg (0.03 %) spray,non-aerosol 1 spray intranasal BEDTIME PRN (Reason: Allergy Symptoms) RF: 0 mycophenolate sodium 180 mg tablet,delayed release (DR/EC) 3 tab PO BID RF: 0 sevelamer carbonate 800 mg tablet 800 mg PO TID RF: 0 insulin lispro [Humalog U-100 Insulin] 100 unit/mL Solution 500 unit SUBCUT Q3D RF: 0 (DME) MiniMed 670G Insulin Pump Misc MISCELLANEOUS RF: 0 gabapentin 600 mg tablet 600 mg PO TID RF: 0 Narcan 4 mg/actuation spray,non-aerosol 4 mg intranasal Q2M PRN (Reason: opioid overdose) Qty: 2 RF: 0 furosemide 80 mg tablet 1 tab PO DAILY RF: 0
[2021-02-20] MEDS: traMADoL HCL 50 MG TABLET PO (17:25)
[2021-02-20 17:45] LABS: COVID-19 Test Negative (Negative)
--- NOTE | 2021-02-20 18:15 | PHA.MEDREC ---
Pharmacy Consult ? Medication Reconciliation Pharmacy has completed the medication reconciliation.
--- NOTE | 2021-02-20 19:56 | PC.NURSE ---
THIS RN CALLED TO BEDSIDE IT'S BULLSHIT THAT I'M IN THE HALLWAY I HAVE TO PEE . PT EDUCATED THAT STAFFING IS SHORT AND DUE TO HIGH FALL RISK STATUS, 2+ ASSIST NEEDS TO ASSURE SAFETY. PT BECAME VERBALLY ABUSIVE TO THIS RN. THIS IS FUCKING BULLSHIT, SOMEONE ALREADY BROUGHT ME TO THE BATHROOM. i CAN'T PEE SITTING DOWN. MULTIPLE ATTEMPTS USED TO EDUCATE PATIENT REGARDING CARDIAC MONITORING STATUS GETTING BEDS. PT OFFERED TIMELY TOILETING Q2HR, PT OFFERED TO PLACE URINAL BETWEEN LEGS. ALL OPTIONS ARE UNACCEPTABLE TO THE PATIENT AT THIS TIME. CM NOTFIED, REGIONAL OFFICE COORDINATOR NOTIFIED.
--- NOTE | 2021-02-20 20:29 | MHC.CM.ED ---
CM met with patient. Pt is A&OX3. Tells CM he left [facility] about a week ago and fell today with his walker. Pt states he can no longer live in his condo, as it is not safe for him . He cannot care for himself . Pt telss CM that his sister is coming next week and he plans to sell her his condo for what is left on the mortgage. Pt asking CM to help him find a handicapped accessible apartment. CM explained that that is not my role. Pt states he may need LTC. Pt has HNE. CM explained that insurance doesn't pay for LTC, unless you have LTC insurance. Explained [employer] application process and gave pt contact information for Financial services and contact card. C/O L knee pain. Pt has large joint effusion. Pt lives alone. Uses a walker and a wheelchair. Pt has ESRF and has dialysis at [facility], Friday, and Friday. Pt states his friend brought him to dialysis today, but cannot consistently drive him, so he has no idea how he will get to his dialysis appointments. Pt requesting STR. Pt requesting [facility] and [facility], with [facility] number 1. Pt requests CM to make a new HCP, as he wants a different HCP. Completed as requested. Steven Viera is his HCP ([phone]) Copies given to patient. Referrals placed to [facility] and to [facility]. CM to follow for d/c needs.
--- NOTE | 2021-02-20 21:05 | PC.NURSE ---
ERT TO ATTEMPT LAB DRAW
--- NOTE | 2021-02-20 21:16 | PC.NURSE ---
JASKARAN HERNANDEZ IS AWARE THAT THIS PCT WAS UNSUCCESSFUL IN OBTAINING PATIENT LABS TIMES TWO , PHLEBOTOMY WAS CALLED TO DRAW PATIENT LABS ,PATIENT REFUSED TO CHANGE INTO HOSPITAL ATTIRE .
--- NOTE | 2021-02-20 21:24 | PC.NURSE ---
PHLEBOTOMY AT BEDSIDE.
[2021-02-20 21:38] LABS: MANUAL DIFF FLAG NO
[2021-02-20 21:40] LABS: Basophils Percent Auto 0.3 % (0-2); Eosinophils Percent Auto 0.6 % (0-4); Hematocrit 24.8 % (42-52); Hemoglobin 7.3 g/dl (14.0-18.0); Imm Gran Abs Auto 0.33 X10*3/uL (0.00-0.03); Lymphocytes Absolute Auto 0.4 X10*3/uL (1.2-4.9); Lymphocytes Percent Auto 5.3 % (20-40); Mean Corpuscular HGB Conc 29.4 g/dl (31.0-36.0); Mean Corpuscular Hemoglobin 27.4 pg (27.0-33.0); Mean Corpuscular Volume 93.2 fL (80-98); Mean Platelet Volume 10.3 fL (9.4-12.4); Monocytes Absolute Auto 0.9 X10*3/uL (0.1-1.2); Monocytes Percent Auto 13.9 % (2-11); Neutrophils Percent Auto 74.9 % (45-73); Platelet Count 278 X10*3/uL (160-400); Red Blood Count 2.66 X10*6/uL (4.60-5.80); Red Cell Distribution Width 16.1 % (11.0-16.0); White Blood Count 6.6 X10*3/uL (4.8-10.8)
[2021-02-20 22:00] VITALS: BP 151/77; PULSE 77; RESP 16; TEMP 36.6; O2SAT 99
[2021-02-20 22:19] LABS: Alanine Aminotransferase 11 U/L (0-40); Albumin Level 3.3 g/dL (3.5-5.0); Alkaline Phosphatase 128 U/L (39-117); Anion Gap 18 (12-20); Aspartate Amino Transferase 35 U/L (5-37); Bilirubin Direct < 0.2 mg/dL (0.0-0.5); Bilirubin Total 0.2 mg/dL (0.0-1.0); Blood Urea Nitrogen 28 mg/dL (9-16); Calcium 8.4 mg/dL (8.4-10.2); Carbon Dioxide 24 mmol/L (22-29); Chloride 99 mmol/L (96-108); Creatinine Clr Calc Pharmacy 27.5; Estimated Glomerular Filt Rate 21; Glucose Random 290 mg/dL (60-115); Potassium 5.1 mmol/L (3.3-5.1); Sodium 136 mmol/L (135-145); Total Protein 6.9 g/dL (6.5-8.0)
[2021-02-20] MEDS: oxyCODONE HCl Immed Release 5 MG TABLET 10 MG PO (22:25)
--- NOTE | 2021-02-20 22:51 | PC.NURSE ---
PATIENT USE THE BATHROOM WITH 2 ASSIST AND THE SIT TO STAND LIFT ,PATIENT DID VERY WELL ,PATIENT DID NOT VOID OR MOVE HIS BOWELS .
[2021-02-20] MEDS: Lidocaine HCl 2 % MPF 5 ML VIAL 20 ML INFILTRATI (23:51)
[2021-02-21] VITALS (7 sets, daily range): BP systolic 121–170; BP diastolic 74–91; PULSE 80–98; RESP 16–18; TEMP 36.9–37.6; O2SAT 95–99
--- NOTE | 2021-02-21 00:06 | PC.NURSE ---
41ML OF FLUID DRAINED FROM LEFT KNEE BY DR. SIMONS. PT TOLERATED WELL. AIRWAY PATENT.
[2021-02-21 00:22] LABS: Source Synovial Fluid knee
[2021-02-21] MEDS: oxyCODONE HCl Immed Release 5 MG TABLET PO ×5 (00:28→22:42)
[2021-02-21 00:35] LABS: MN% 1.4 %; PMN% 98.6 %; RBC Synovial Fluid 0.028 X10*6/uL
[2021-02-21 01:26] LABS: BF Shift QC OK YES; Man Diluent Bkgrd OK YES; Neutrophils Synovial Fluid 97 %
[2021-02-21 01:28] LABS: Monocytes Synovial Fluid 3 %
[2021-02-21] MEDS: cloNIDine HCL 0.1 MG TABLET PO ×3 (03:08→21:44)
[2021-02-21] MEDS: Sevelamer Carbonate Tablet 800 MG TABLET PO ×4 (03:10→21:44)
[2021-02-21] MEDS: Gabapentin 600 MG TABLET PO ×4 (03:10→21:45)
--- NOTE | 2021-02-21 03:39 | PC.NURSE ---
REPORT FROM MARY JESSICA AT 03:00
--- NOTE | 2021-02-21 07:07 | PC.NURSE ---
RN aware POC [phone]
[2021-02-21 07:23] LABS: Glucose, Whole Blood 177 mg/dL (60-115)
[2021-02-21 07:30] LABS: Glucose Synovial Fluid 117; Total Protein Synovial Fluid 3.3
[2021-02-21] MEDS: predniSONE 5 MG TABLET PO (08:54)
[2021-02-21] MEDS: amLODIPine Besylate 10 MG TABLET PO (08:54)
[2021-02-21] MEDS: Furosemide 40 MG TABLET 80 MG PO (08:54)
[2021-02-21] MEDS: Omeprazole 20 MG CAPSULE.DR PO (08:55)
--- NOTE | 2021-02-21 09:30 | MHC.CM.ED ---
Patient remains in ER. Physical therapy eval completed. Short term rehab is recommended. Clinical updates sent to [facility] and [facility]. Continue to monitor for d/c needs.
[2021-02-21] MEDS: Brimonidine Tartrate 0.2% Oph 5 ML BOTTLE 1 DROP EYE-BOTH ×2 (09:46→21:45)
[2021-02-21] MEDS: Mycophenolate Sodium 180 MG TABLET.DR 540 MG PO ×2 (09:46→21:44)
--- NOTE | 2021-02-21 18:16 | PC.NURSE ---
PATIENT WAS TRANSFER TO BATHROOM WITH 1 ASST AND WHEELED CHAIR . .PATIENT IS SITTING UP AT BED SIDE HAVING HIS DINNER .
[2021-02-21] MEDS: Subcutaneous Insulin Pump 1 EACH SUBCUT (18:17)
--- NOTE | 2021-02-21 22:09 | PC.NURSE ---
Spoke with pharmacy. Pharmacy to bring Latanoprost eye drops to ED. Medication unavailable in [facility]. Plan to administer upon arrival.
[2021-02-21] MEDS: Latanoprost 0.005 % Ophth Sol 2.5 ML DROPS 1 DROP EYE-BOTH (22:42)
--- NOTE | 2021-02-22 03:13 | PC.NURSE ---
patient out of bed to bathroom twice so far this shift. One person assist, pivots to wheelchair, bed, and back. Alert/Oriented, and continues to be able to follow directions and answer questions appropriately while making needs known. Will continue to monitor.
--- NOTE | 2021-02-22 07:09 | PC.NURSE ---
RN aware POC [phone]
[2021-02-22 07:42] LABS: Glucose, Whole Blood 324 mg/dL (60-115)
[2021-02-22] MEDS: oxyCODONE HCl Immed Release 5 MG TABLET PO ×2 (07:46→13:42)
--- NOTE | 2021-02-22 09:08 | MHC.CM.ED ---
Received notification from [facility] that [facility]NE denied correction level of care. Denial letter received from [facility]. Letter and discharge options provided to patient, including the [facility] appeal process or being discharged to dialysis and then his home. At that time, patient became irate and stated That's not an option. I'm homeless! T/W explained he owned a Condo that he lives in. Patient stated But I can't get in the 3 steps, so I'm homeless. T/W attempted to encourage patient to reach out to [facility] for an appeal. Patient requesting to speak to T/W's plastics supervisor. Karolyn Dumont CM [employer] aware and will come see patient. Continue to monitor for d/c needs.
[2021-02-22 09:32] LABS: B Type Natriuretic Peptide 50 pg/mL (<100)
[2021-02-22 09:39] LABS: Anion Gap 16 (12-20); Blood Urea Nitrogen 43 mg/dL (9-16); Calcium 8.9 mg/dL (8.4-10.2); Carbon Dioxide 27 mmol/L (22-29); Chloride 96 mmol/L (96-108); Creatinine Clr Calc Pharmacy 19.4; Estimated Glomerular Filt Rate 14; Glucose Random 200 mg/dL (60-115); Sodium 135 mmol/L (135-145)
[2021-02-22 10:04] VITALS: BP 130/70; PULSE 80
[2021-02-22] MEDS: Sevelamer Carbonate Tablet 800 MG TABLET PO (10:04)
[2021-02-22] MEDS: predniSONE 5 MG TABLET PO (10:04)
[2021-02-22] MEDS: amLODIPine Besylate 10 MG TABLET PO (10:04)
[2021-02-22] MEDS: Omeprazole 20 MG CAPSULE.DR PO (10:04)
[2021-02-22] MEDS: Meclizine HCl 25 MG TABLET PO (10:04)
[2021-02-22] MEDS: Mycophenolate Sodium 180 MG TABLET.DR 540 MG PO (10:04)
[2021-02-22 10:05] VITALS: BP 130/70; PULSE 80
[2021-02-22] MEDS: Gabapentin 600 MG TABLET PO (10:05)
[2021-02-22] MEDS: Latanoprost 0.005 % Ophth Sol 2.5 ML DROPS 1 DROP EYE-BOTH (10:05)
[2021-02-22] MEDS: cloNIDine HCL 0.1 MG TABLET PO (10:05)
[2021-02-22] MEDS: Brimonidine Tartrate 0.2% Oph 5 ML BOTTLE 1 DROP EYE-BOTH (10:05)
[2021-02-22] MEDS: Furosemide 40 MG TABLET 80 MG PO (10:10)
--- NOTE | 2021-02-22 10:10 | MHC.CM.NN ---
Met with patient who has appealed STR denial with [facility]. Patient states he is unable to his condominium due to physical barriers: stairs to enter, bathroom on 2nd floor. Requested financial counselors meet with patient to advise him of [employer] application process. Patient aware that if he refuses to return home, he may need to find alternate place to stay (fci). T/W placed a call to [facility] RN reviewer requesting assistance. Patient reports he does not have the funds to privately pay for STR or help at home.
--- NOTE | 2021-02-22 10:49 | MHC.CM.ED ---
Patient requesting to speak to physical therapist that evaluated him on 02/21. Virgie aware and will come see patient as soon as she can. Continue to monitor for d/c needs.
[2021-02-22 13:43] VITALS: BP 137/76; PULSE 85; RESP 16; O2SAT 97
--- NOTE | 2021-02-22 14:37 | MHC.CM.ED ---
Received notification from Shani in financial counseling that patient's [facility] standard is now active. [facility] aware and can offer a bed today. Patient can leave at 4pm. [facility] chair van booked for 4pm. [facility] with chart. Patient, Ivan JESSICA and Anna RASHEED aware. Continue to monitor for d/c needs.
== END 2021-02-22 16:08 | disposition skilled nursing facility (03) ==
PROVIDERS: Emergency Provider Emergency Medicine; PCP Internal Medicine
DX: M25.462 Effusion, left knee (principal); I12.0 Hypertensive chronic kidney disease with stage 5 chronic kidney disease or end stage renal disease; E11.22 Type 2 diabetes mellitus with diabetic chronic kidney disease; N18.6 End stage renal disease; Z79.52 Long term (current) use of systemic steroids; Z79.899 Other long term (current) drug therapy; Z20.822 Contact with and (suspected) exposure to COVID-19; Z96.41 Presence of insulin pump (external) (internal); Z99.2 Dependence on renal dialysis; Z91.81 History of falling
CPT/HCPCS: 20610; 36415; 73562; 80048; 80076; 82945; 82947; 83880; 84157; 85025; 87071; 87073; 87205; 87635; 89051; 89060; 97162; 99285

== ENCOUNTER → 2021-03-14 10:47 | Outpatient (BNVA) | payer OTHER, SELFPAY | PROVIDERS: PCP Internal Medicine; Visit Provider Orthopaedic Surgery ==

== ENCOUNTER 2022-05-15 10:25 | Outpatient (REF) | payer OTHER, SELFPAY | END 2022-05-15 10:26 | disposition home or self-care (01) | LOC: HO.MRI 10:25 | PROVIDERS: Visit Provider Psychiatry & Neurology Neurology | DX: Z13.89 Encounter for screening for other disorder (principal) ==

== ENCOUNTER → 2022-08-23 10:18 | Outpatient (BNVA) | payer OTHER, MEDICAID, SELFPAY | PROVIDERS: PCP Internal Medicine; Visit Provider Internal Medicine | DX: E11.40 Type 2 diabetes mellitus with diabetic neuropathy, unspecified (principal) ==

== ENCOUNTER → 2022-09-20 08:55 | Outpatient (BNVA) | payer OTHER, MEDICAID, SELFPAY | PROVIDERS: PCP Internal Medicine; Visit Provider Internal Medicine | DX: Z13.89 Encounter for screening for other disorder (principal) ==

== ENCOUNTER 2023-02-07 12:08 | Day surgery (SDC) | payer OTHER, MEDICAID, SELFPAY ==
--- NOTE | 2023-02-06 11:55 | HO.ANESPROP2 ---
Documented by User: Kinjal Samuel NP 02/06/23 12:07 HPI - Anesthesia Eval Consult details Narrative: 52yo M for Colonoscopy Cardiac optimized. Last office eval 10/2022. Pt was euvolemic and hemodynamically stable ESRD on HD TuTat [facility] Active Problems Active Problems: All Active Problems (Updated 02/05/23 @ 10:26 by Lavonne Curry, RN) Injury of knee, left (Acute) Painful diabetic neuropathy (Acute) Thoracic myelopathy (Acute) CKD (chronic kidney disease) requiring chronic dialysis (Acute) Past Medical History Medical History Asthma CAD (coronary artery disease) Dependence on renal dialysis Diabetes Elevated cholesterol GERD (gastroesophageal reflux disease) Glaucoma HTN (hypertension) Kidney failure Kidney transplant rejection Neuropathy On beta candelario at home Uses walker Surgical History Surgical History (Updated 02/07/23 @ 13:02 by Flakita Calderon, JASKARAN) History of cardiac cath History of esophagogastroduodenoscopy (EGD) History of kidney transplant Hx of colonoscopy S/P arteriovenous (AV) graft placement S/P trigger finger release Social History Social History Alcohol intake: never Patient Tobacco Use Status: Never used Tobacco Use of substances other than those prescribed or required for medical reasons: No Are you DNR?: No Advance Directives: Yes Advance Directives Information Provided: Yes Advance Directives on File: No Advance Directives Date on File: 01/31/21 Current occupational status: unemployed Current occupation: Right Handed Meds Allergies Allergy/AdvReac Type Severity Reaction Status Date / Time cefazolin [From ANCEF] Allergy Intermediate ? Verified 02/07/23 13:02 ALLERGY-COUGH,SOB fentanyl [FENTANYL] Allergy Intermediate ? ALLERGY, Verified 02/07/23 13:02 COUGH,SOB pregabalin [From Lyrica] Allergy Nausea Verified 02/07/23 13:02 Home Medications Medication Instructions Recorded Confirmed Last Taken Type brimonidine 0.2 % eye drops 1 drp ophthalmic (eye) BID 01/30/21 02/04/23 01/30/21 History ergocalciferol (vitamin D2) 1,250 1 cap PO DE OLIVEIRA 01/30/21 02/04/23 01/28/21 History mcg (50,000 unit) capsule insulin lispro 100 unit/mL 500 unit subcut Q3D insulin pump 01/30/21 09/20/22 Unknown History subcutaneous solution (Humalog U-100 Insulin) latanoprost 0.005 % eye drops 1 drp ophthalmic (eye) BEDTIME 01/30/21 02/04/23 01/29/21 History mycophenolate sodium 180 mg 3 tab PO BID 01/30/21 02/04/23 01/30/21 History tablet,delayed release furosemide 80 mg tablet 1 tab PO DAILY 02/20/21 02/04/23 Unknown History albuterol sulfate 90 mcg/actuation 2 puff inhalation Q4H PRN Wheezing 07/22/22 02/04/23 Unknown History aerosol inhaler atorvastatin 40 mg tablet 40 mg PO DAILY 07/22/22 02/04/23 Unknown History clopidogrel 75 mg tablet 75 mg PO DAILY 07/22/22 02/04/23 Unknown History epoetin konrad 40,000 unit/mL 20,000 unit subcut QWEEK 07/22/22 02/04/23 Unknown History injection solution fluticasone 250 mcg-salmeterol 50 1 ea inhalation BID 07/22/22 02/04/23 Unknown History mcg/dose blistr powdr for inhalation (Advair Diskus) folic acid 1 mg tablet 1 mg PO DAILY 07/22/22 02/04/23 Unknown History gabapentin 100 mg capsule 100 mg PO TID 07/22/22 02/04/23 Unknown History magnesium oxide 400 mg (241.3 mg 400 mg PO BID 07/22/22 02/04/23 Unknown History magnesium) tablet metoprolol succinate 100 mg 100 mg PO DAILY 07/22/22 02/04/23 Unknown History tablet,extended release 24 hr sevelamer HCl 800 mg tablet 800 mg PO TID 07/22/22 02/04/23 Unknown History tamsulosin 0.4 mg capsule 0.4 mg PO DAILY 07/22/22 02/04/23 Unknown History omeprazole 20 mg capsule,delayed 20 mg PO DAILY 02/07/23 02/07/23 Unknown History release Exam Exam Date and Time: February 06, 2023 1155 Narrative Narrative: EKG 08/2022 NSR @ 63 Prolonged QT ECHO 2021 LV systolic function moderately reduced. LVEF 35-40%. Basal to mid inferolateral and basal inferior and anterolateral villa appear hypokinetic. Grade II , moderate DD with pseudonormal LV filling pattern and increased LA pressure. RV moderately dilated. RV systolic function appears preserved. Apical tethering of both leaflets of the mitral valve. There is mild to moderate mitral regurg. Moderate tricuspid regurg Moderate pulm htn. PASP 50-55mmHg Nuc Stress 08/2022 Myocardial ischemia in LAD and LCx territories which is known (Per cardiac note, revascularization not warranted in absence of symptomatic CAD or increasing HD requirements) Documented by User: Ashley Bashir MD 02/07/23 13:43 [facility] Past Medical History Medical History Asthma CAD (coronary artery disease) Dependence on renal dialysis Diabetes Elevated cholesterol GERD (gastroesophageal reflux disease) Glaucoma HTN (hypertension) Kidney failure Kidney transplant rejection Neuropathy On beta candelario at home Uses walker Family History Family history of problems with anesthesia: No Surgical History Surgical History (Updated 02/07/23 @ 13:02 by Flakita Calderon, RN) History of cardiac cath History of esophagogastroduodenoscopy (EGD) History of kidney transplant Hx of colonoscopy S/P arteriovenous (AV) graft placement S/P trigger finger release History of Problems with Anesthesia: No Social History Social History Alcohol intake: never Patient Tobacco Use Status: Never used Tobacco Use of substances other than those prescribed or required for medical reasons: No Are you DNR?: No Advance Directives: Yes Advance Directives Information Provided: Yes Advance Directives on File: No Advance Directives Date on File: 01/31/21 Current occupational status: unemployed Current occupation: Right Handed Meds Allergies Allergy/AdvReac Type Severity Reaction Status Date / Time cefazolin [From ANCEF] Allergy Intermediate ? Verified 02/07/23 13:02 ALLERGY-COUGH,SOB fentanyl [FENTANYL] Allergy Intermediate ? ALLERGY, Verified 02/07/23 13:02 COUGH,SOB pregabalin [From Lyrica] Allergy Nausea Verified 02/07/23 13:02 Home Medications Medication Instructions Recorded Confirmed Last Taken Type brimonidine 0.2 % eye drops 1 drp ophthalmic (eye) BID 01/30/21 02/04/23 01/30/21 History ergocalciferol (vitamin D2) 1,250 1 cap PO DE OLIVEIRA 01/30/21 02/04/23 01/28/21 History mcg (50,000 unit) capsule insulin lispro 100 unit/mL 500 unit subcut Q3D insulin pump 01/30/21 09/20/22 Unknown History subcutaneous solution (Humalog U-100 Insulin) latanoprost 0.005 % eye drops 1 drp ophthalmic (eye) BEDTIME 01/30/21 02/04/23 01/29/21 History mycophenolate sodium 180 mg 3 tab PO BID 01/30/21 02/04/23 01/30/21 History tablet,delayed release furosemide 80 mg tablet 1 tab PO DAILY 02/20/21 02/04/23 Unknown History albuterol sulfate 90 mcg/actuation 2 puff inhalation Q4H PRN Wheezing 07/22/22 02/04/23 Unknown History aerosol inhaler atorvastatin 40 mg tablet 40 mg PO DAILY 07/22/22 02/04/23 Unknown History clopidogrel 75 mg tablet 75 mg PO DAILY 07/22/22 02/04/23 Unknown History epoetin konrad 40,000 unit/mL 20,000 unit subcut QWEEK 07/22/22 02/04/23 Unknown History injection solution fluticasone 250 mcg-salmeterol 50 1 ea inhalation BID 07/22/22 02/04/23 Unknown History mcg/dose blistr powdr for inhalation (Advair Diskus) folic acid 1 mg tablet 1 mg PO DAILY 07/22/22 02/04/23 Unknown History gabapentin 100 mg capsule 100 mg PO TID 07/22/22 02/04/23 Unknown History magnesium oxide 400 mg (241.3 mg 400 mg PO BID 07/22/22 02/04/23 Unknown History magnesium) tablet metoprolol succinate 100 mg 100 mg PO DAILY 07/22/22 02/04/23 Unknown History tablet,extended release 24 hr sevelamer HCl 800 mg tablet 800 mg PO TID 07/22/22 02/04/23 Unknown History tamsulosin 0.4 mg capsule 0.4 mg PO DAILY 07/22/22 02/04/23 Unknown History omeprazole 20 mg capsule,delayed 20 mg PO DAILY 02/07/23 02/07/23 Unknown History release Exam Airway Mallampati Class: III (thick neck) TM Dist: >3cm Heart: rrr Lungs: cta Assessment and Plan Assessment Anesthesia Assessment: Anesthesia Plan Discussed and Chart Reviewed Final Anesthetic Review Family History of Problems with Anesthesia: No History of Problems with Anesthesia: No NPO: Yes ASA Class: III Final Preanesthetic Review: No Changes in Pt Med Stat and Consent Obtained/Reviewed Patient Risk: Intermediate Procedure Risk: Intermediate Anesthetic Plan Anesthetic Plan: MAC: Disposition: Standard PACU
--- OUTSIDE RECORDS SUMMARY | 2023-02-07 12:12 | XMS_ITS | Continuity of Care Document ---
Author Name Unknown Organization [facility] Address [address] [place] [address] [address] [place] [address]- Care Team Providers Care Principal Quality Engineer Name Role Phone Krishna Tapia MD Primary Care Physician Encounter [facility] Date(s): 11/18/22 - 11/25/[address] [place] [address]- Attending Physician: Jesse Sorenson MD Referring Physician: Krishna Tapia MD Allergies, Adverse Reactions, Alerts Substance Reaction Severity Status fentanyl 1 trouble breathing Unknown Active Ancef 2 trouble breathing Unknown Active Lyrica mind races Unknown Active 1 unsure which caused trouble breathing- the Ancef or the Fentanyl- got both with a surgery 2 unsure which caused trouble breathing- the Ancef or the Fentanyl - received both during a surgery Immunizations Given and Recorded Vaccine Date Status Refusal Reason SARS-CoV-2 (COVID-19) mRNA-1273 vaccine 08/07/21 R ecorded SARS-CoV-2 (COVID-19) mRNA BNT-162b2 vac 12/14/20 Recorded SARS-CoV-2 (COVID-19) mRNA BNT-162b2 vac 11/21/20 Recorded meningococcal group B vaccine 09/14/20 Given Meningococcal Conjugate Vaccine 09/13/20 Given influenza virus vaccine, inactivated 06/16/18 Corey rded influenza virus vaccine, inactivated 05/27/17 Corey rded influenza virus vaccine, inactivated 06/13/10 Give n tetanus-diphtheria toxoids (Td) 08/23/16 Recorded Tetanus Immune Globulin 03/11/11 Given pneumococcal 23-valent vaccine 09/25/07 Given Medications Advair Diskus 250 mcg-50 mcg inhalation powder 1, puffs, Inhalation, 2 times a day, Refills 0, Maintenance, 10/23/21 9:07:00 EST, Powder Start Date: 10/23/21 Status: Ordered albuterol 0.083% inhalation solution 3 mL = 2.5 mg, Inhalation, Every 4 hours, PRN Wheezing/Shortness of Breath, # 120 each, 0 Refills, Maintenance, 09/04/22 10:02:00 EST, Solution, Partial fill upon patient request if the prescription is for a schedule II opioid drug. Start Date: 09/04/22 Stop Date: 10/04/22 Status: Ordered aspirin 81 mg oral delayed release tablet 81 mg, 1, tablet, By Mouth, Daily, # 30 tablet, Refills 0, Maintenance, 09/04/22 10:00:00 EST, Partial fill upon patient request if the prescription is for a schedule II opioid drug. Start Date: 09/04/22 Stop Date: 10/04/22 Status: Ordered atorvastatin 40 mg oral tablet 1 tablet = 40 mg, By Mouth, Daily, # 90 tablet, 0 Refills, Maintenance, 11/07/22 16:04:00 EDT, Tablet, Partial fill upon patient request if the prescription is for a schedule II opioid drug. Start Date: 11/07/22 Status: Ordered brimonidine 0.2% ophthalmic solution 1 drops, Eyes, Both, 2 times a day, 0 Refills, Maintenance, 01/22/19 8:42:13 EDT, Ophth Solution Start Date: 01/22/19 Status: Ordered calcitriol 0.5 mcg oral capsule 3 capsule = 1.5 mcg, By Mouth, Every Friday, and Friday, # 39 capsule, 0 Refills, Maintenance, 06/22/22 6:51:00 EDT, Capsule, [facility], Partial fill upon patient request if the prescription is for a schedule II opioid drug.... Start Date: 06/22/22 Stop Date: 07/22/22 Status: Ordered clopidogrel 75 mg oral tablet 75 mg, 1, tablet, By Mouth, Daily, # 30 tablet, Refills 0, Maintenance, 11/07/22 16:04:00 EDT, Partial fill upon patient request if the prescription is for a schedule II opioid drug. Start Date: 11/07/22 Status: Ordered Compression Stockings See Instructions, # 2 each, Refills 2, Tot. Refills 2, Maintenance, surgical, knee length 20-30 mm Hg, 11/25/22 14:56:00 EDT, Supply Start Date: 11/25/22 Status: Ordered cyanocobalamin 1000 mcg oral tablet 1,000 mcg, 1, tablet, By Mouth, Daily, Refills 0, Maintenance, 07/30/21 9:18:00 EST Start Date: 07/30/21 Status: Ordered Epoetin Brett 1 mL = 40,000 units, Subcutaneous Injection, Every week, 0 Refills, Maintenance, 01/22/22 11:16:00 EDT, Injection, Partial fill upon patient request if the prescription is for a schedule II opioid drug. Start Date: 01/22/22 Status: Ordered folic acid 1 mg oral tablet 1 mg, 1, tablet, By Mouth, Daily, Refills 0, Maintenance, 07/30/21 9:18:00 EST Start Date: 07/30/21 Status: Ordered furosemide 80 mg oral tablet 80 mg, 1, tablet, By Mouth, Daily, # 30 tablet, Refills 0, Maintenance, 06/11/22 14:23:00 EDT, Partial fill upon patient request if the prescription is for a schedule II opioid drug. Start Date: 06/11/22 Status: Ordered gabapentin 300 mg oral capsule 300 mg, 1, capsule, By Mouth, 3 times a day, # 90 capsule, Refills 0, Tot. Refills 0, Maintenance, 08/29/22 8:44:00 EST, Route to Pharmacy Electronically, [facility], Partial fill upon patient request if the prescription is for a schedul... Start Date: 08/29/22 Stop Date: 09/28/22 Status: Ordered ibuprofen 800 mg oral tablet 800 mg, 1, tablet, By Mouth, 3 times a day, # 270 tablet, Refills 0, Maintenance, 11/07/22 16:04:00EDT, Partial fill upon patient request if the prescription is for a schedule II opioid drug. Start Date: 11/07/22 Status: Ordered insulin lispro 100 u/ml subcutaneous injection 8 - 18 units, Subcutaneous Injection, 3 times a day before meals, << Sliding Scale Comments >> Call if less than 70 100 - 140 8 units 141 - 180 9 units 181 - 220 10 units 221 - 260 11 units 261 - 300 12 units 301 - 340 13 units... Start Date: 07/30/21 Status: Ordered magnesium oxide 400 mg oral tablet See Instructions, TAKE 2 TABLETS BY MOUTH EVERY DAY, # 180 tablet, 1 Refills, [id number], 173,cm, 01/24/22 16:16:00 EDT, Height, 91.1, kg, 01/17/22 6:19:00 EDT, Dry Weight Start Date: 04/11/22 Status: Ordered MECLIZINE 25 MG TABLET MECLIZINE 25 MG TABLET, 0 Refills, Maintenance, 11/07/22 16:04:00 EDT Start Date: 11/07/22 Status: Ordered melatonin 3 mg oral tablet = 3 mg, By Mouth, Daily at bedtime, PRN as needed for insomnia, 0 Refills, Maintenance, 07/30/21 9:18:00 EST, Tablet Start Date: 07/30/21 Status: Ordered metoprolol 50 mg oral tablet, extended release 100 mg, 2, tablet, By Mouth, Daily, # 180 tablet, Refills 0, Tot. Refills 0, Maintenance, 11/07/22 16:29:00 EDT, Route to Pharmacy Electronically, [facility], Partial fill upon patient request if the prescription is for a schedule II opioid... Start Date: 11/07/22 Stop Date: 02/05/23 Status: Ordered mycophenolic acid 180 mg oral delayed release tablet 3 tablet = 540 mg, By Mouth, 2 times a day, 0 Refills, Maintenance, 07/30/21 9:17:00 EST, ER Tablet Start Date: 07/30/21 Status: Ordered omeprazole 20 mg oral enteric coated capsule 1 capsule = 20 mg, By Mouth, Daily, # 90 capsule, 0 Refills, Maintenance, 11/07/22 16:04:00 EDT, ECCapsule, Partial fill upon patient request if the prescription is for a schedule II opioid drug. Start Date: 11/07/22 Status: Ordered Omni Pod Insulin Pump Maintenance, 08/29/22 8:46:00 EST, Supply Start Date: 08/29/22 Status: Ordered pantoprazole 40 mg oral delayed release tablet = 40 mg, By Mouth, 2 times a day, 0 Refills, Maintenance, 07/30/21 9:18:00 EST, EC Tablet Start Date: 07/30/21 Status: Ordered Renvela 800 mg oral tablet 1 tablet = 800 mg, By Mouth, 3 times a day with meals, Maintenance, 03/09/21 13:29:00 EDT Start Date: 03/09/21 Status: Ordered Sensipar 30 mg oral tablet 1 tablet = 30 mg, By Mouth, Daily, # 30 tablet, 0 Refills, Maintenance, 06/22/22 6:51:00 EDT, Tablet, [facility], Partial fill upon patient request if the prescription is for a scheduleII opioid drug., 172, cm, 06/11/22 16:04:00 EDT, He... Start Date: 06/22/22 Status: Ordered sodium zirconium cyclosilicate 10 g oral powder for reconstitution = 10 Gm, By Mouth, Every Friday, Friday and Friday, dilute w/45 ml water, mix well, and drink immediately, 0 Refills, Maintenance, 10/23/21 9:13:00 EST Start Date: 10/23/21 Status: Ordered tamsulosin 0.4 mg oral capsule 0.4 mg, 1, capsule, By Mouth, Daily at bedtime, Refills 0, Maintenance, 07/30/21 9:18:00 EST Start Date: 07/30/21 Status: Ordered Xalatan 0.005% solution 1 drops, Eyes, Both, Daily at bedtime, 0 Refills, Maintenance, 12/09/10 10:30:56 EDT, Ophth Solution Start Date: 12/09/10 Status: Ordered Problem List Condition Confirmation Course Effective Dates Status Health St atus Informant Chronic kidney disease (CKD) Confirmed Active Chronic systolic congestive heart failure Confirmed Active CAD (coronary artery disease) Confirmed Active Diabetes mellitus type 1 Confirmed Active ESRD on dialysis 1 Confirmed Active Foot pain Confirmed Active Hypertension Confirmed Active Neuropathy Confirmed Active Severe obesity (BMI 35.0-39.9) with comorbidity Confirmed Active Transplanted kidney present Confirmed Active [facility] [facility] Tue, Thurs, and Sat Vital Signs Most recent to oldest [Reference Range]: 1 Height 173 cm (11/18/22 1:55 PM) Weight 105 kg (11/18/22 1:55 PM) Body Mass Index [18.5-24.99 kg/m2] 35.08 kg/m2 *>HHI* (11/18/22 1:55 PM) Social History Social History Type Response Smoking Status Never smoker entered on: 01/06/17 Sex Male Implantable Device List Procedure Provider Procedure Date Device Type Site Creation Arteriovenous Graft Upper Extre Josef Adams MD 03/12/21 Unknown Arm Left Device Identifier Serial Number Lot or Batch Number Manufacturing Date Expiration Date Distinct Identification Code MRI Safety Implantable Status Assigning Authority Unknown [id number] Unknown Unknown 09/26/25 Unknown Unknown Active Unknown Patient Care team information Care Team Personnel Name: Wild Santos RN Position: S RN Member Role: Primary Care Nurse Name: Lucy Garcia RN Position: S RN Member Role: Primary Care Nurse Name: Julianna Mazariegos RN Position: [facility] RN Member Role: Primary Care Nurse Name: Simin Rosario RN Position: S RN Member Role: Primary Care Nurse Name: Kendal Garcia RN Position: S RN Member Role: Primary Care Nurse Name: Janie Kunz RN Position: [facility] RN Member Role: Primary Care Nurse Name: Krishna Tapia MD Position: [facility] Outreach Member Role: PCP Address: Address: [address] [place] [address] [place] [address]- Name: Miguelangel Cancino MD Position: [facility] Renal MD Member Role: Lifetime Consulting Physician Address: Address: [address] [place] [address], [address] [facility] [place] [address]- Name: Lavonne Mckenzie RN Position: [facility] RN Member Role: Primary Care Nurse Name: Filomena Austin RN Position: [facility] RN Member Role: Primary Care Nurse Name: Faby Guido RN Position: S RN Member Role: Primary Care Nurse Name: Sabrina Damon RN Position: [facility] RN Member Role: Primary Care Nurse Name: Maddy Skelton Position: [facility] RN Member Role: Primary Care Nurse Name: Elise Yao LPN Position: [facility] RN Member Role: Primary Care Nurse Name: Barak Shaw DO Position: [facility] Renal MD Member Role: Lifetime Consulting Physician Address: Address: [address] [place] [address] [address] [facility] [place] [address]- Name: Tayla Fine Position: [facility] Outreach Member Role: Lifetime Consulting Physician Name: Niki Montes RN Position: [facility] RN Member Role: Primary Care Nurse Name: Stella Calhoun RN Position: [facility] RN Member Role: Primary Care Nurse Name: Wes Lezama Position: [facility] Associate Professional Member Role: Lifetime Consulting Provider Address: Address: [address] [place] [address]- Name: Kinjal Macias RN Position: [facility] RN Member Role: Primary Care Nurse Name: Estephania Pizano RN Position: [facility] ED RN W/OE and Tasks Member Role: Primary Care Nurse Name: Alexis Brooke MD Position: [facility] Renal MD Member Role: Lifetime Consulting Physician Address: Address: [address] [place] [address] [address] [facility] [place] [address]- Name: Amanda Vides RN Position: [facility] RN Member Role: Primary Care Nurse Name: Chantelle Villareal RN Position: [facility] RN Member Role: Primary Care Nurse Name: Brisa Michaels RN Position: [facility] RN Member Role: Primary Care Nurse Name: London Chau RN Position: [facility] RN Member Role: Primary Care Nurse Name: Ana Schafer RN Position: [facility] RN Member Role: Primary Care Nurse Name: Liz Aguilera RN Position: [facility] Outreach Member Role: Lifetime Consulting Physician Name: Sudhir Chan Position: [facility] Outreach Member Role: Lifetime Consulting Physician Name: Monique Guzmán RN Position: [facility] RN Member Role: Primary Care Nurse Name: Roselia Crain RN Position: [facility] RN Member Role: Primary Care Nurse Name: Jorge Crews RN Position: [facility] RN Member Role: Primary Care Nurse Address: Address: [address] [place] [address]- Name: Marcelo Joy MD Position: [facility] Renal MD Member Role: Lifetime Consulting Physician Address: Address: [address] [place] [address] [facility] [place] [address]- Name: Nell Copeland RN Position: [facility] RN Member Role: Primary Care Nurse Name: Star Hagen RN Position: [facility] RN Member Role: Primary Care Nurse Name: Odalis Roy RN Position: [facility] SN RN Member Role: Primary Care Nurse Name: Merline Carlson RN Position: [facility] RN Member Role: Primary Care Nurse Name: Nupur Black RN Position: [facility] RN Member Role: Primary Care Nurse Name: Serena Allen RN Position: [facility] Onco RN Member Role: Primary Care Nurse Name: Maura Tsang RN Position: [facility] RN Member Role: Primary Care Nurse Care Team Related Persons Name: RAQUELKAYCE COLON Address: [address] [place] [address] Name: SANTIAGO NAZARIO Address: home [address] [place] [address]
--- OUTSIDE RECORDS SUMMARY | 2023-02-07 12:12 | XMS_ITS | Continuity of Care Document ---
Author Name Unknown Organization [facility] Address [address] [place] [address]- Care Team Providers Care Travelift Operator Name Role Phone Krishna Tapia MD Primary Care Physician [place] [facility] [place]22 - 01/30/23 [facility] [address] [place] [address]- Allergies, Adverse Reactions, Alerts Substance Reaction Severity [...] 0 Refills, Maintenance, 06/22/22 6:51:00 EDT, Capsule, [facility], Partial fill upon patient request if the prescription is for a schedule II opioid drug.... Start Date: 06/22/22 Stop Date: 07/22/22 Status: Ordered Compression Stockings See Instructions, # 2 each, Refills 2, Tot. Refills 2, Maintenance, surgical, knee length 20-30 mm Hg, 11/25/22 14:56:00 EDT, Supply Start Date: 11/25/22 Status: Ordered cyanocobalamin 1000 mcg oral tablet 1,000 mcg, 1, tablet, By Mouth, Daily, Refills 0, Maintenance, 07/30/21 9:18:00 EST Start Date: 07/30/21 Status: Ordered folic acid 1 mg oral [...] 08/29/22 8:44:00 EST, Route to Pharmacy Electronically, [facility] 3, Partial fill upon patient request if the prescription is for a schedul... Start Date: 08/29/22 Stop Date: 09/28/22 Status: Ordered Humalog 100 u/ml subcutaneous injection See Instructions, Subcutaneous InfusiON INSULIN PUMP, 0 Refills, Maintenance, 12/16/22 13:45:00 EDT, Partial fill upon patient request if the prescription is for a schedule II opioid drug. Start Date: 12/16/22 Status: Ordered magnesium oxide 400 mg oral tablet See Instructions, TAKE 2 TABLETS BY MOUTH EVERY DAY, # 180 tablet, 1 Refills, [id number], 173,cm, 01/24/22 16:16:00 EDT, Height, 91.1, kg, 01/17/22 6:19:00 EDT, Dry Weight Start Date: 04/11/22 Status: Ordered MECLIZINE 25 MG TABLET MECLIZINE 25 MG TABLET, By Mouth, 3 times a day, 0 Refills, Maintenance, 11/07/22 16:04:00 EDT Start [...] 11/07/22 16:29:00 EDT, Route to Pharmacy Electronically, [facility], Partial fill upon patient request if the prescription is for a schedule II opioid... Start Date: 11/07/22 Stop Date: 02/05/23 Status: Ordered omeprazole 20 mg oral enteric coated capsule 1 capsule = 20 mg, By Mouth, Daily, # 90 capsule, 0 Refills, Maintenance, 11/07/22 16:04:00 EDT, ECCapsule, Partial fill upon patient request if the prescription is for a schedule II opioid drug. Start Date: 11/07/22 Status: Ordered Omni Pod Insulin Pump Maintenance, 08/29/22 8:46:00 EST, Supply Start Date: 08/29/22 Status: Ordered Renvela 800 mg oral tablet 1 tablet = 800 mg, By Mouth, 3 times a day with meals, Maintenance, 03/09/21 13:29:00 EDT Start Date: 03/09/21 Status: Ordered sodium zirconium cyclosilicate 10 g [...] Active Hypertension Confirmed Active Neuropathy Confirmed Active Obese class I Confirmed Active Transplanted kidney present Confirmed Active [place] [facility] Tue, Th, and Sat Social History Social History Type Response Smoking Status Never smoker entered on: 01/06/17 Sex Male Implantable Device List Procedure Provider Procedure Date Device Type Site Creation Arteriovenous Graft Upper Extre Josef Adams MD 7/19/21 Unknown Arm Left Device Identifier Serial Number Lot or Batch Number Manufacturing Date Expiration Date Distinct Identification Code MRI Safety Implantable Status Assigning Authority Unknown [id number] Unknown Unknown 09/26/25 Unknown Unknown Active Unknown Patient Care team information Care Team Personnel Name: Wild Santos RN Position: S RN Member Role: Primary Care Nurse Name: Lucy Garcia RN Position: S RN Member Role: Primary Care Nurse Name: Julianna Mazariegos RN Position: S RN Member Role: Primary Care Nurse Name: Simin Rosario RN Position: S RN Member Role: Primary Care Nurse Name: Kendal Garcia RN Position: S RN Member Role: Primary Care Nurse Name: Janie Kunz RN Position: [facility] RN Member Role: Primary Care Nurse Name: Krishna Tapia MD Position: [facility] Outreach Member Role: PCP Address: Address: [address] [facility] [place] [address]- Name: Miguelangel Cancino MD Position: [facility] Renal MD Member Role: Lifetime Consulting Physician Address: Address: [address] [place] [address], [address] [facility] [place] [address]- [place] Name: Lavonne Mckenzie RN Position: [facility] RN Member Role: Primary Care Nurse Name: Filomena Austin RN Position: [facility] RN Member Role: Primary Care Nurse Name: Faby Guido RN Position: S RN Member Role: Primary Care Nurse Name: Sabrina Damon RN Position: S RN Member Role: Primary Care Nurse Name: Maddy Skelton Position: S RN Member Role: Primary Care Nurse Name: Elise Yao LPN Position: S RN Member Role: Primary Care Nurse Name: Barak Shaw DO Position: [facility] Renal MD Member Role: Lifetime Consulting Physician Address: Address: [address] [facility] [address] [facility] [place] [place] [address]- [place] Name: Tayla Fine Position: [facility] Outreach Member Role: Lifetime Consulting Physician Name: Niki Montes RN Position: S RN Member Role: Primary Care Nurse Name: Stella Calhoun RN Position: S RN Member Role: Primary Care Nurse Name: Wes Lezama Position: [facility] Associate Professional Member Role: Lifetime Consulting Provider Address: Address: [address] [place] [address]- Name: Kinjal Macias RN Position: [facility] RN Member Role: Primary Care Nurse Name: Estephania Pizano RN Position: [facility] ED RN W/OE and Tasks Member Role: Primary Care Nurse Name: Alexis Brooke MD Position: [facility] Renal MD Member Role: Lifetime Consulting Physician Address: Address: [address] [place] [address] [address] [facility] [place], [place] [address]- Name: Amanda Vides RN Position: [facility] RN Member Role: Primary Care Nurse Name: Chantelle Villareal RN Position: [facility] RN Member Role: Primary Care Nurse Name: Brisa Michaels RN Position: [facility] RN Member Role: Primary Care Nurse Name: London Chau RN Position: [facility] ED RN W/OE and Tasks Member Role: Primary Care Nurse Name: Ana Schafer RN Position: [facility] RN Member Role: Primary Care Nurse Name: Liz Aguilera RN Position: [facility] Outreach Member Role: Lifetime Consulting Physician Name: Sudhir Chna Position: [facility] Outreach Member Role: Lifetime Consulting Physician Name: Monique Guzmán RN Position: [facility] RN Member Role: Primary Care Nurse Name: Roselia Crain RN Position: [facility] RN Member Role: Primary Care Nurse Name: Jorge Crews RN Position: [facility] RN Member Role: Primary Care Nurse Address: Address: [address] [place] [address]- Name: Marcelo Joy MD Position: [facility] Renal MD Member Role: Lifetime Consulting Physician Address: Address: [address] [place] [address] [facility] [place] [address]- Name: Nell Copeland RN Position: [facility] RN Member Role: Primary Care Nurse Name: Star Hagen RN Position: [facility] RN Member Role: Primary Care Nurse Name: Odalis Roy RN Position: [facility] SN RN Member Role: Primary Care Nurse Name: Merline Carlson RN Position: [facility] RN Member Role: Primary Care Nurse Name: Nupur Black RN Position: [facility] RN Member Role: Primary Care Nurse Name: Serena Allen RN Position: [facility] Onco RN Member Role: Primary Care Nurse Name: Maura Tsang RN Position: [facility] RN Member Role: Primary Care Nurse Care Team Related Persons Name: KAYCE PARK Address: [address] [place] [address] Name: NAZARIOSANTIAGO Address: [place] [address]
--- OUTSIDE RECORDS SUMMARY | 2023-02-07 12:12 | XMS_ITS | Continuity of Care Document ---
Author Name Unknown Organization [facility] Address [address] [place] [address]- Care Team Providers Care Clerk Of Works Name Role Phone Krishna Tapia MD Primary Care Physician Encounter [facility] [place] Date(s): 08/30/22 - 10/06/[address] [address] Attending Physician: Krishna Tapia MD Admitting Physician: Krishna Tapia MD Allergies, Adverse Reactions, [...] Date: 09/04/22 Stop Date: 10/04/22 Status: Ordered brimonidine 0.2% ophthalmic solution 1 drops, Eyes, Both, 2 times a day, 0 Refills, Maintenance, 01/22/19 8:42:13 EDT, Ophth Solution Start Date: 01/22/19 Status: Ordered calcitriol 0.5 mcg oral capsule 3 capsule = 1.5 mcg, By Mouth, Every Friday, and Friday, # 39 capsule, 0 Refills, Maintenance, 06/22/22 6:51:00 EDT, Capsule, [facility], Partial fill upon patient request if the prescription is for a schedule II opioid drug.... Start Date: 06/22/22 Stop Date: 07/22/22 Status: Ordered cyanocobalamin 1000 mcg oral tablet [...] 08/29/22 8:44:00 EST, Route to Pharmacy Electronically, [facility], Partial fill upon patient request if the prescription is for a schedul... Start Date: 08/29/22 Stop Date: 09/28/22 Status: Ordered insulin lispro 100 u/ml subcutaneous [...] EVERY DAY, # 180 tablet, 1 Refills, [facility], 173,cm, 01/24/22 16:16:00 EDT, Height, 91.1, kg, 01/17/22 6:19:00 EDT, Dry Weight Start Date: 04/11/22 Status: Ordered melatonin 3 mg oral tablet = 3 mg, By Mouth, Daily at bedtime, PRN as needed for insomnia, 0 Refills, Maintenance, 07/30/21 9:18:00 EST, Tablet Start Date: 07/30/21 Status: Ordered metoprolol 100 mg oral tablet, extended release 100 mg, 1, tablet, By Mouth, Daily, # 90 tablet, Refills 3, Tot. Refills 3, Maintenance, 05/23/22 14:38:00 EDT, Route to Pharmacy Electronically, [facility], Partial fill upon patient request if the prescription is for a schedule II opioid d... Start Date: 05/23/22 Status: Ordered mycophenolic acid 180 mg oral delayed release tablet 3 tablet = 540 mg, By Mouth, 2 times a day, 0 Refills, Maintenance, 07/30/21 9:17:00 EST, ER Tablet Start Date: 07/30/21 Status: Ordered Omni Pod Insulin Pump Maintenance, [...] 0 Refills, Maintenance, 06/22/22 6:51:00 EDT, Tablet, [facility], Partial fill upon patient request [...] Active Diabetes mellitus type 1 Confirmed Active Foot pain Confirmed Active Hypertension Confirmed Active Neuropathy Confirmed Active Severe obesity (BMI 35.0-39.9) with comorbidity Confirmed Active Transplanted kidney present Confirmed Active Social History Social History Type Response Smoking Status Never smoker entered on: 01/06/17 Sex Male Implantable Device List Procedure Provider Procedure Date Device Type Site Creation Arteriovenous Graft Upper Extre Josef Adams MD 03/12/21 Unknown Arm Left Device Identifier Serial Number Lot or Batch Number Manufacturing Date Expiration Date Distinct Identification Code MRI Safety Implantable Status Assigning Authority Unknown [id number] Unknown Unknown 09/26/25 Unknown Unknown Active Unknown Patient Care team information Care Team Personnel Name: Wild Santos RN Position: [facility] RN Member Role: Primary Care Nurse Name: Lucy Garcia RN Position: S RN Member Role: Primary Care Nurse Name: Julianna Mazariegos RN Position: S RN Member Role: Primary Care Nurse Name: Simin Rosario RN Position: S RN Member Role: Primary Care Nurse Name: Janie Kunz RN Position: S RN Member Role: Primary Care Nurse Name: Krishna Tapia MD Position: [facility] Outreach Member Role: PCP Address: Address: [address] [place] [address] [place] [address]- Name: Miguelangel Cancino MD Position: [facility] Renal MD Member Role: Lifetime Consulting Physician Address: Address: [address] [place] [address], [address] [facility] [place] [address]- Name: Lavonne Mckenzie RN Position: [facility] RN Member Role: Primary Care Nurse Name: Filomena Austin RN Position: S RN Member Role: Primary Care Nurse Name: Gladis Aguirre Position: S RN Member Role: Primary Care Nurse Name: Faby Guido RN Position: S RN Member Role: Primary Care Nurse Name: Sabrina Damon RN Position: S RN Member Role: Primary Care Nurse Name: Maddy Skelton Position: S RN Member Role: Primary Care Nurse Name: Elise Yao LPN Position: S RN Member Role: Primary Care Nurse Name: Barak Shaw DO Position: [facility] Renal MD Member Role: Lifetime Consulting Physician Address: Address: [address] [place] [address] [address] [facility] [place] [address]- Name: Tayla Fine Position: S Outreach Member Role: Lifetime Consulting Physician Name: Niki Montes RN Position: [facility] RN Member Role: Primary Care Nurse Name: Stella Calhoun RN Position: [facility] RN Member Role: Primary Care Nurse Name: Wes Lezama Position: [facility] Associate Professional Member Role: Lifetime Consulting Provider Address: Address: [address] [place] [address]- Name: Kinjal Macias RN Position: [facility] RN Member Role: Primary Care Nurse Name: Estephania Pizano RN Position: [facility] ED RN W/OE and Tasks Member Role: Primary Care Nurse Name: Zita Barrow RN Position: [facility] RN Member Role: Primary Care Nurse Name: Alexis Brooke MD Position: [facility] Renal MD Member Role: Lifetime Consulting Physician Address: Address: [address] [place] [address] [address] [facility] [place] [address]- Name: Amanda Vides RN Position: [facility] RN Member Role: Primary Care Nurse Name: Chantelle Villareal RN Position: [facility] RN Member Role: Primary Care Nurse Name: Brisa Michaels RN Position: [facility] RN Member Role: Primary Care Nurse Name: London Chau RN Position: [facility] RN Member Role: Primary Care Nurse Name: Ana Schafer RN Position: [facility] RN Member Role: Primary Care Nurse Name: Liz Aguilera RN Position: [facility] Outreach Member Role: Lifetime Consulting Physician Name: Sudhir Chan Position: [facility] Outreach Member Role: Lifetime Consulting Physician Name: Monique Guzmán RN Position: [facility] RN Member Role: Primary Care Nurse Name: Roselia Crain RN Position: [facility] RN Member Role: Primary Care Nurse Name: Jorge Crews RN Position: [facility] RN Member Role: Primary Care Nurse Address: Address: [address] [place] [address]- Name: Marcelo Joy MD Position: [facility] Renal MD Member Role: Lifetime Consulting Physician Address: Address: [address] [place] [address] [facility] [place] [address]- Name: Nell Copeland RN Position: [facility] RN Member Role: Primary Care Nurse Name: Star Hagen RN Position: [facility] RN Member Role: Primary Care Nurse Name: Odalis Roy RN Position: [facility] SN RN Member Role: Primary Care Nurse Name: Merline Carlson RN Position: [facility] RN Member Role: Primary Care Nurse Name: Nupur Black RN Position: [facility] RN Member Role: Primary Care Nurse Name: Serena Allen RN Position: [facility] Onco RN Member Role: Primary Care Nurse Name: Maura Tsang RN Position: [facility] RN Member Role: Primary Care Nurse Care Team Related Persons Name: KAYCE PARK Address: [address] [place] [address] Name: SANTIAGO NAZARIO Address: home [address] [place] [id number]
--- OUTSIDE RECORDS SUMMARY | 2023-02-07 12:12 | XMS_ITS | Continuity of Care Document ---
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 Role Phone Krishna Tapia MD Primary Care Physician Encounter [facility] R [id number] Date(s): 11/25/22 - 12/02/22 [facility] [address], [place] [address] Attending Physician: Vincent Drake MD Admitting Physician: Vincent Drake MD Allergies, Adverse Reactions, Alerts Substance Reaction [...] 0 Refills, Maintenance, 06/22/22 6:51:00 EDT, [facility], Partial fill upon patient request if [...] 08/29/22 8:44:00 EST, Route to Pharmacy Electronically, [facility], Partial fill upon patient request if [...] EVERY DAY, # 180 tablet, 1 Refills, [id number], 173,cm, 01/24/22 16:16:00 EDT, Height, 91.1, kg, [...] 11/07/22 16:29:00 EDT, Route to Pharmacy Electronically, [facility], Partial fill upon patient request if [...] 0 Refills, Maintenance, 06/22/22 6:51:00 EDT, Tablet, [facility], Partial fill upon patient request [...] oldest [Reference Range]: 1 Height 173 cm (11/25/22 2:02 PM) Weight 105 kg (11/25/22 2:02 PM) Oxygen Saturation [94-100 %] 97 % (11/25/22 2:02 PM) Pulse Rate [55-90 bpm] 65 bpm (11/25/22 2:02 PM) Body Mass Index [18.5-24.99 kg/m2] 35.08 kg/m2 *>HHI* (11/25/22 2:02 PM) Blood Pressure [90-138/55-84 mm Hg] 128/ 88mm Hg (11/25/22 2:02 PM) Mode of Delivery (Oxygen) Room air (11/25/22 2:02 PM) Blood pressure sites Arm, left (11/25/22 2:02 PM) Weight Obtained Via Patient/family state d (11/25/22 2:02 PM) Social History Social History Type Response Smoking Status Never smoker entered on: 01/06/17 Sex Male Implantable Device List Procedure Provider Procedure Date Device Type Site Creation Arteriovenous Graft Upper Extre Angie GREENWOOD, Josef Wallace 03/12/21 Unknown Arm Left Device Identifier Serial Number Lot or Batch Number Manufacturing Date Expiration Date Distinct Identification Code MRI Safety Implantable Status Assigning Authority Unknown [id number] Unknown Unknown 09/26/25 Unknown Unknown Active Unknown Note * Gracy Melendez: PERFORM, SIGN, VERIFY Event Display: Patient Education/Instruction Authored Date: [facility] *[facility] [address] Clinical Summary Name RONI VIRAMONTES Age 52 Years 1970 PCP Krishna Tapia MD PCP Visit Date 11/25/2022 13:56:00 Additional Instructions: Scheduled Appointments?? Future Appointments ?[facility] ?Phone:??--?Fax:??-- ?Appt. Date:??11/27/2022?7:00 AM ?Scheduled Provider:??[facility] RN US BX Rm 1 ?*[facility] ?[address]??[place],??[place],??[address] ?Phone:??--?Fax:??-- ?Appt. Date:??01/06/2023?9:00 AM ?Scheduled Provider:??Selwyn GREENWOOD, Petros Follow-Up Instructions ?? Diagnosis Venous insufficiency (chronic) (peripheral) Medications: Please continue your medications until treatment is completed or stopped by your provider. Discuss any questions related to medications with your provider. New Medications - Durable Medical Equipment (Compression Stockings) surgical, knee length 20-30 mm Hg. Refills: 2. Next Dose: Medications to Continue with No Changes These medications were not printed or sent to your pharmacy Albuterol (albuterol 0.083% inhalation solution) 3 Milliliter Inhalation every 4 hours as needed Wheezing/Shortness of Breath for 30 Days. Next Dose: Aspirin (aspirin 81 mg oral delayed release tablet) 1 tab(s) Oral Daily for 30 Days. Next Dose: Atorvastatin (atorvastatin 40 mg oral tablet) 1 tab(s) Oral Daily. Next Dose: Brimonidine Ophthalmic (brimonidine 0.2% ophthalmic solution) 1 Drops Both eyes twice a day. Next Dose: Calcitriol (calcitriol 0.5 mcg oral capsule) 3 capsule Oral every Friday, and Friday for 30 Days. Refills: 0. Next Dose: Cinacalcet (Sensipar 30 mg oral tablet) 1 tab(s) Oral Daily. Refills: 0. Next Dose: Clopidogrel (clopidogrel 75 mg oral tablet) 1 tab(s) Oral Daily. Next Dose: Cyanocobalamin (cyanocobalamin 1000 mcg oral tablet) 1 tab(s) Oral Daily. Next Dose: Durable Medical Equipment (Omni Pod Insulin Pump) Next Dose: Epoetin Brett 40,000 unit(s) Subcutaneous Injection every week. Next Dose: Fluticasone-Salmeterol (Advair Diskus 250 mcg-50 mcg inhalation powder) 1 puff(s) Inhalation twice a day. Next Dose: Folic Acid (folic acid 1 mg oral tablet) 1 tab(s) Oral Daily. Next Dose: Furosemide (furosemide 80 mg oral tablet) 1 tab(s) Oral Daily. Next Dose: Gabapentin (gabapentin 300 mg oral capsule) 1 capsule Oral 3 times a day for 30 Days. Refills: 0. Next Dose: Ibuprofen (ibuprofen 800 mg oral tablet) 1 tab(s) Oral 3 times a day. Next Dose: Insulin Lispro (insulin lispro 100 u/ml subcutaneous injection) 8 - 18 units Subcutaneous Injection3 times a day before meals. << Sliding Scale Comments >> Call if less than 70 100 - 140 8 units 141 - 180 9 units 181 - 220 10 units 221 - 260 11 units 261 - 300 12 units 301 - 340 13 units 341 - 380 14 units 381 - 400 15 units 401 - 440 18 units Call if greater than 400 << Sliding Scale Comments >> 3 times a day before meals on non-dialysis days (M, W, F, Sun) two times a day before lunch and dinner meals on dialysis days (, , Fri). Next Dose: Latanoprost Ophthalmic (Xalatan 0.005% solution) 1 Drops Both eyes Daily at Bedtime. Next Dose: Magnesium Oxide (magnesium oxide 400 mg oral tablet) TAKE 2 TABLETS BY MOUTH EVERY DAY. Refills: 1. Next Dose: Melatonin (melatonin 3 mg oral tablet) 3 Milligram Oral Daily at Bedtime as needed as needed for insomnia. Next Dose: Metoprolol (metoprolol 50 mg oral tablet, extended release) 2 tab(s) Oral Daily for 90 Days. Refills: 0. Next Dose: Miscellaneous Rx (MECLIZINE 25 MG TABLET) Next Dose: Mycophenolate Sodium (mycophenolic acid 180 mg oral delayed release tablet) 3 tab(s) Oral twice a day. Next Dose: Omeprazole (omeprazole 20 mg oral enteric coated capsule) 1 capsule Oral Daily. Next Dose: Pantoprazole (pantoprazole 40 mg oral delayed release tablet) 40 Milligram Oral twice a day. Next Dose: Sevelamer (Renvela 800 mg oral tablet) 1 tab(s) Oral 3 times a day with meals. Next Dose: sodium zirconium cyclosilicate (sodium zirconium cyclosilicate 10 g oral powder for reconstitution)10 gram Oral Friday, Friday and Friday. dilute w/45 ml water, mix well, and drink immediately. Next Dose: Tamsulosin (tamsulosin 0.4 mg oral capsule) 1 capsule Oral Daily at Bedtime. Next Dose: Allergy Info:?? Lyrica; Ancef; fentanyl Medications Given This Visit Future Orders ?No future orders Vital Signs Height 173 cm Weight 105 kg BMI 35.08 kg/m2 Blood Pressure 128 mm Hg/88 mm Hg Temperature Pulse Rate 65 bpm Respiratory Rate 02 Sat Mode of Delivery 97 %/Room air You can now view a summary of your hospital visit from the comfort of your home through a free online portal called [employer]erican. Verican is a website that allows you to securely view your medical information including discharge summary, medications and follow-up visits. ??You can alsosend a secure electronic message to your doctor???s office to request appointments, renew medications or just ask a question. You can enroll at [email or web address] or register during your next office visit. Disclaimer:?? The information provided is of a general nature and is intended to be used in conjunction with the recommendations and advice of your health care practitioner. ??Every effort has been made to ensure that the information provided is accurate and complete at the time it is provided to you however, as your needs change, or, as new ??information becomes available, different or additional instructions may be required. If you have questions, please consult with your primary care provider or pharmacist, as appropriate. ??This information is not intended to serve as substitution for assessment and evaluation by a qualified health care provider. If you do not have a primary care provider, you may find a [facility] provider by calling [facility] at [phone]. For information about the plan of care including goals and instructions for your diagnosis, please see the patient education orders section of this document. Patient Education Materials?? The content of this educational material or handout may have been modified, supplemented, or adapted from its original content and format to support your individualized medical care. Patient Care team information Care Team Personnel [...] Care Nurse Name: Krishna Tapia MD Position: [facility] Outreach Member Role: PCP Address: Address: [address] [facility] [place] [address]- Name: Miguelangel Cancino MD Position: [facility] Renal MD Member Role: Lifetime Consulting Physician Address: Address: [address] [place] [address], [address] [facility] [place] [address]- [place] Name: Lavonne Mckenzie RN Position: [facility] RN Member Role: Primary Care Nurse Name: Filomena Austin RN Position: [facility] RN Member Role: Primary Care Nurse Name: Faby Guido RN Position: [facility] RN Member Role: Primary Care Nurse Name: Sabrina Damon RN Position: S RN Member Role: Primary Care Nurse Name: Maddy Skelton Position: S RN Member Role: Primary Care Nurse Name: Elise Yao LPN Position: S RN Member Role: Primary Care Nurse Name: Barak Shaw DO Position: [facility] Renal MD Member Role: Lifetime Consulting Physician Address: Address: [address] [facility] [address] [facility] [place] [address]- [place] Name: Tayla Fine Position: [facility] Outreach Member Role: Lifetime Consulting Physician Name: Niki Montes RN Position: [facility] RN Member Role: Primary Care Nurse Name: Stella Calhoun RN Position: S RN Member Role: Primary Care Nurse Name: Wes Lezama Position: [facility] Associate Professional Member Role: Lifetime Consulting Provider Address: Address: [address] [place] [address]- Name: Kinjal Macias RN Position: [facility] RN Member Role: Primary Care Nurse Name: Estephania Pizano RN Position: [facility] ED RN W/OE and Tasks Member Role: Primary Care Nurse Name: Alexis Brooke MD Position: [facility] Renal MD Member Role: Lifetime Consulting Physician Address: Address: [address] [place] [address] [address] [facility] [place] [place] [address]- Name: Amanda Vides RN Position: [facility] RN Member Role: Primary Care Nurse Name: Chantelle Villareal RN Position: [facility] RN Member Role: Primary Care Nurse Name: Brisa Michaels RN Position: [facility] RN Member Role: Primary Care Nurse Name: London Chau RN Position: [facility] RN Member Role: Primary Care Nurse Name: Ana Schafer RN Position: [facility] RN Member Role: Primary Care Nurse Name: Liz Aguilera RN Position: [facility] Outreach Member Role: Lifetime Consulting Physician Name: Sudhir Chan Position: [facility] Outreach Member Role: Lifetime Consulting Physician Name: Monique Guzmán RN Position: [facility] RN Member Role: Primary Care Nurse Name: Roselia Crain RN Position: [facility] RN Member Role: Primary Care Nurse Name: Jorge Crews RN Position: [facility] RN Member Role: Primary Care Nurse Address: Address: [address] [place] [address]- Name: Marcelo Joy MD Position: [facility] Renal MD Member Role: Lifetime Consulting Physician Address: Address: [address] [place] [address] [facility] [place] [address]- Name: Nell Copeland RN Position: [facility] RN Member Role: Primary Care Nurse Name: Star Hagen RN Position: [facility] RN Member Role: Primary Care Nurse Name: Odalis Roy RN Position: [facility] SN RN Member Role: Primary Care Nurse Name: Merline Carlson RN Position: [facility] RN Member Role: Primary Care Nurse Name: Nupur Black RN Position: [facility] RN Member Role: Primary Care Nurse Name: Serena Allen RN Position: [facility] Onco RN Member Role: Primary Care Nurse Name: Maura Tsang RN Position: S RN Member Role: Primary Care Nurse Care Team Related Persons Name: KAYCE PARK Address: [address] [place] [address] Name: SANTIAGO NAZARIO Address: [address] [address]
--- OUTSIDE RECORDS SUMMARY | 2023-02-07 12:12 | XMS_ITS | Continuity of Care Document ---
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 Role Phone Krishna Tapia MD Primary Care Physician Encounter [facility] Date(s): 12/26/22 - 01/25/23 [facility] [address] [place] [address]- Allergies, Adverse Reactions, Alerts Substance Reaction Severity [...] 0 Refills, Maintenance, 06/22/22 6:51:00 EDT, Capsule, [facility] 3, Partial fill upon patient [...] 08/29/22 8:44:00 EST, Route to Pharmacy Electronically, [facility] 3, Partial fill upon patient [...] EVERY DAY, # 180 tablet, 1 Refills, [id number], 173,cm, 01/24/22 16:16:00 EDT, Height, 91.1, kg, [...] 11/07/22 16:29:00 EDT, Route to Pharmacy Electronically, [facility], Partial fill upon patient request if [...] Active [facility] [facility] Tue, Thurs, and Sat Social History Social History Type Response Smoking Status Never smoker entered on: 01/06/17 Sex Male Implantable Device List Procedure Provider Procedure Date Device Type Site Creation Arteriovenous Graft Upper Extre Josef Adams MD 03/12/21 Unknown Arm Left Device Identifier Serial Number Lot or Batch Number Manufacturing Date Expiration Date Distinct Identification Code MRI Safety Implantable Status Assigning Authority Unknown [id number] Unknown Unknown 09/26/25 Unknown Unknown Active Unknown [...] Care Nurse Name: Janie Kunz RN Position: [facility] RN Member Role: Primary Care Nurse Name: Krishna Tapia MD Position: [facility] Outreach Member Role: PCP Address: Address: [address] [facility] [place] [address]- Name: Miguelangel Cancino MD Position: [facility] Renal MD Member Role: Lifetime Consulting Physician Address: Address: [address] [place] [address], [address] [facility] [place] [address]- [place] Name: Lavonne Mckenzie RN Position: [facility] RN Member Role: Primary Care Nurse Name: Filomena Austin RN Position: [facility] RN Member Role: Primary Care Nurse Name: Faby Guido RN Position: S RN Member Role: Primary Care Nurse Name: Sabrina Damon RN Position: S RN Member Role: Primary Care Nurse Name: Maddy Skelton Position: S RN Member Role: Primary Care Nurse Name: Elise Yao LPN Position: S RN Member Role: Primary Care Nurse Name: Barak Shaw DO Position: [facility] Renal MD Member Role: Lifetime Consulting Physician Address: Address: [address] [facility] [address] [facility] [place] [address]- [place] Name: Tayla Fine Position: [facility] Outreach Member Role: Lifetime Consulting Physician Name: Niki Montes RN Position: S RN Member Role: Primary Care Nurse Name: Stella Calhoun RN Position: S RN Member Role: Primary Care Nurse Name: Wes Lezama Position: [facility] Associate Professional Member Role: Lifetime Consulting Provider Address: Address: [address] [place] [address]- Name: Kinjal Macias RN Position: [facility] RN Member Role: Primary Care Nurse Name: Estephania Pizano RN Position: [facility] ED RN W/OE and Tasks Member Role: Primary Care Nurse Name: Alexis Brooke MD Position: [facility] Renal MD Member Role: Lifetime Consulting Physician Address: Address: [address] [place] [address] [address] [facility] [place] [address]- Name: Amanda Vides RN Position: [facility] RN Member Role: Primary Care Nurse Name: Chantelle Villareal RN Position: [facility] RN Member Role: Primary Care Nurse Name: Brisa Michaels RN Position: [facility] RN Member Role: Primary Care Nurse Name: London Chau RN Position: [facility] ED RN W/OE and Tasks Member Role: Primary Care Nurse Name: Ana Schafer RN Position: [facility] RN Member Role: Primary Care Nurse Name: Liz Aguilera RN Position: [facility] Outreach Member Role: Lifetime Consulting Physician Name: Sudhir Chan Position: [facility] Outreach Member Role: Lifetime Consulting Physician Name: Monique Guzmán RN Position: [facility] RN Member Role: Primary Care Nurse Name: Roselia Crain RN Position: [facility] RN Member Role: Primary Care Nurse Name: Jorge Crews RN Position: [facility] RN Member Role: Primary Care Nurse Address: Address: [address] [place] [address]- Name: Marcelo Joy MD Position: [facility] Renal MD Member Role: Lifetime Consulting Physician Address: Address: [address] [place] [address] [facility] [place] [address]- Name: Nell Copeland RN Position: [facility] RN Member Role: Primary Care Nurse Name: Star Hagen RN Position: [facility] RN Member Role: Primary Care Nurse Name: Odalis Roy RN Position: [facility] SN RN Member Role: Primary Care Nurse Name: Merline Carlson RN Position: [facility] RN Member Role: Primary Care Nurse Name: Nupur Black RN Position: [facility] RN Member Role: Primary Care Nurse Name: Serena Allen RN Position: [facility] Onco RN Member Role: Primary Care Nurse Name: Maura Tsang RN Position: S RN Member Role: Primary Care Nurse Care Team Related Persons Name: KAYCE PARK Address: home [address] [place] [address] Name: NAZARIOSANTIAGO Address: [address] [address]
--- OUTSIDE RECORDS SUMMARY | 2023-02-07 12:12 | XMS_ITS | Continuity of Care Document ---
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 Role Phone Krishna Tapia MD Primary Care Physician Encounter [facility] Date(s): 12/12/22 - 01/11/23 [facility] [address] [place], [place] [address] Attending Physician: Kyler Ny Admitting Physician: Kyler Ny Referring Physician: AdmtrKyler Allergies, Adverse Reactions, Alerts Substance Reaction Severity [...] 0 Refills, Maintenance, 06/22/22 6:51:00 EDT, Capsule, [facility], Partial fill upon patient request [...] 08/29/22 8:44:00 EST, Route to Pharmacy Electronically, [facility], Partial fill upon patient request [...] EVERY DAY, # 180 tablet, 1 Refills, [id number], 173,cm, 01/24/22 16:16:00 EDT, Height, 91.1, kg, [...] 11/07/22 16:29:00 EDT, Route to Pharmacy Electronically, [facility], Partial fill upon patient request if [...] MRI Safety Implantable Status Assigning Authority Unknown [id number] Unknown Unknown 09/26/25 Unknown Unknown Active Unknown [...] Care Nurse Name: Krishna Tapia MD Position: S Outreach Member Role: PCP Address: Address: [address] [place] [address] [place] [address]- Name: Miguelangel Cancino MD Position: [facility] Renal MD Member Role: Lifetime Consulting Physician Address: Address: [address] [place] [address], [address] [facility] [place] [address]- Name: Lavonne Mckenzie RN Position: S RN Member Role: Primary [...] Care Nurse Name: Barak Shaw DO Position: [facility] Renal MD Member Role: Lifetime Consulting Physician Address: Address: [address] [place] [address] [address] [facility] [place] [address]- [place] Name: Tayla Fine Position: S Outreach Member Role: Lifetime Consulting Physician Name: Niki Montes RN Position: S RN Member Role: Primary Care Nurse Name: Stella Calhoun RN Position: [facility] RN Member Role: Primary Care Nurse Name: Wes Lezama Position: [facility] Associate Professional Member Role: Lifetime Consulting Provider Address: Address: [address] [place] [address]- Name: Kinjal Macias RN Position: [facility] RN Member Role: Primary Care Nurse Name: Estephania Pizano RN Position: [facility] ED RN W/OE and Tasks Member Role: Primary Care Nurse Name: Alexis Brooke MD Position: [facility] Renal MD Member Role: Lifetime Consulting Physician Address: Address: [address] [place] [address] [address] [facility] [place] [address]- Name: Amanda iVdes RN Position: [facility] RN Member Role: Primary Care Nurse Name: Chantelle Villareal RN Position: [facility] RN Member Role: Primary Care Nurse Name: Brisa Michaels RN Position: [facility] RN Member Role: Primary Care Nurse Name: London Chau RN Position: [facility] ED RN W/OE and Tasks Member Role: Primary Care Nurse Name: Ana Schafer RN Position: [facility] RN Member Role: Primary Care Nurse Name: Liz Aguilera RN Position: [facility] Outreach Member Role: Lifetime Consulting Physician Name: Sudhir Chan Position: [facility] Outreach Member Role: Lifetime Consulting Physician Name: Monique Guzmán RN Position: [facility] RN Member Role: Primary Care Nurse Name: Roselia Crain RN Position: [facility] RN Member Role: Primary Care Nurse Name: Jorge Crews RN Position: [facility] RN Member Role: Primary Care Nurse Address: Address: [address] [place] [address]- Name: Marcelo Joy MD Position: [facility] Renal MD Member Role: Lifetime Consulting Physician Address: Address: [address] [place] [address] [facility] [place] [address]- Name: Nell Copeland RN Position: [facility] RN Member Role: Primary Care Nurse Name: Star Hagen RN Position: [facility] RN Member Role: Primary Care Nurse Name: Odalis Roy RN Position: [facility] SN RN Member Role: Primary Care Nurse Name: Merline Carlson RN Position: [facility] RN Member Role: Primary Care Nurse Name: Nupur Black RN Position: S RN Member Role: Primary Care Nurse Name: Alejandro JESSICA, Serena Lubin Position: [facility] Onco RN Member Role: Primary Care Nurse Name: Maura Tsang RN Position: [facility] RN Member Role: Primary Care Nurse Care Team Related Persons Name: KAYCE PARK Address: [address] [place] [address] Name: SANTIAGO NAZARIO Address: home [address] [place] [id number]
--- OUTSIDE RECORDS SUMMARY | 2023-02-07 12:12 | XMS_ITS | Continuity of Care Document ---
Author Name Unknown Organization [facility] ter Address [address] [place] [id number]- Care Team Providers Care Industrial Therapist Name Role Phone Krishna Tapia MD Primary Care Physician [phone] Encounter [facility] [place] Date(s): 08/27/22 - 08/29/[address] [address]- Encounter Diagnosis Heart failure(Final) - 08/27/22 ESRD needing dialysis(Final) - 08/27/22 Neuropathy(Final) - 08/27/22 Leg pain(Final) - 08/27/22 Discharge Disposition: A-D/C Home Attending Physician: Maldonado Queen MD Admitting Physician: Lilli Parker MD Referring Physician: Not on Staff, Referring MD Allergies, Adverse Reactions, Alerts Substance Reaction [...] EST, Powder Start Date: 10/23/21 Status: Ordered atorvastatin 40 mg oral tablet 1 tablet = 40 mg, By Mouth, Daily at bedtime, 0 Refills, Maintenance, 10/23/21 9:02:00 EST Start Date: 10/23/21 Status: Ordered brimonidine 0.2% ophthalmic solution 1 drops, Eyes, Both, 2 times a day, 0 Refills, Maintenance, 01/22/19 8:42:13 EDT, Ophth Solution Start Date: 01/22/19 Status: Ordered calcitriol 0.5 mcg oral capsule 3 capsule = 1.5 mcg, By Mouth, Every Friday, and Friday, # 39 capsule, 0 Refills, Maintenance, 06/22/22 6:51:00 EDT, Capsule, [facility], Partial fill upon patient request if the prescription is for a schedule II opioid drug.... Start Date: 06/22/22 Stop Date: 07/22/22 Status: Ordered clopidogrel 75 mg oral tablet 75 mg, 1, tablet, By Mouth, Daily, # 30 tablet, Refills 0, Tot. Refills 0, Maintenance, 01/22/22 11:15:00 EDT, Route to Pharmacy Electronically, [facility], Partial fill upon patient request if the prescription is for a schedule II opioi... Start Date: 01/22/22 Stop Date: 02/21/22 Status: Ordered cyanocobalamin 1000 mcg oral tablet 1,000 mcg, 1, tablet, By Mouth, Daily, Refills 0, Maintenance, 07/30/21 9:18:00 EST Start Date: 07/30/21 Status: Ordered doxycycline monohydrate 100 mg oral capsule 1 capsule = 100 mg, By Mouth, Every 12 hours, for 7 days, # 14 capsule, 0 Refills, Acute 09/05/22 8:43:00 EST, 08/29/22 8:43:00 EST, Capsule, [facility], Partial fill upon patient request if the prescription is for a schedule II opioid d... Start Date: 08/29/22 Stop Date: 09/05/22 Status: Ordered Epoetin Brett 1 mL = [...] gabapentin 300 mg oral capsule 300 mg, Capsule, By Mouth, Hold for: excessive sedation/lethargy, 08/29/22 9:00:00 EST Start Date: 08/29/22 Stop Date: 08/29/22 Status: Completed gabapentin 300 mg oral capsule 300 mg, 1, capsule, By Mouth, 3 times a day, # 90 capsule, Refills 0, Tot. Refills 0, Maintenance, 08/29/22 8:44:00 EST, Route to Pharmacy Electronically, [facility], Partial fill upon patient [...] EVERY DAY, # 180 tablet, 1 Refills, [facility] [address], 173,cm, 01/24/22 16:16:00 EDT, Height, 91.1, kg, 01/17/22 6:19:00 EDT, Dry Weight Start Date: 04/11/22 Status: Ordered melatonin 3 mg oral tablet = 3 mg, By Mouth, Daily at bedtime, PRN as needed for insomnia, 0 Refills, Maintenance, 07/30/21 9:18:00 EST, Tablet Start Date: 07/30/21 Status: Ordered metoprolol 100 mg oral tablet, extended release 100 mg, XL Tablet, By Mouth, 08/29/22 9:00:00 EST Start Date: 08/29/22 Stop Date: 08/29/22 Status: Completed metoprolol 100 mg oral tablet, extended release 100 mg, 1, tablet, By Mouth, Daily, # 90 tablet, Refills 3, Tot. Refills 3, Maintenance, 05/23/22 14:38:00 EDT, Route to Pharmacy Electronically, [facility], Partial fill upon patient request if [...] 0 Refills, Maintenance, 06/22/22 6:51:00 EDT, Tablet, [facility], Partial fill upon patient [...] Active Hypertension Confirmed Active Neuropathy Confirmed Active Transplanted kidney present Confirmed Active Results Radiology Reports * Exam Date Time Procedure Performing Provider Status 08/28/22 4:[address] Angio Chest Amanda Parisi; Auth (Edin rader) Notes: (CT Angio Chest) Reason For Exam: Other: pe;Other: RESULT: CT Angio Chest EXAMINATION: CT Angio Chest INDICATION: Reason: Other: pe; Clinical Question(s): Pulmonary Embolism; Order Comment: TECHNIQUE: Spiral CTA of the chest was performed after rapid IV contrast administration without cardiac gating, triggered by an LUCIANA on the main pulmonary artery. Images are formatted in multiple planes using 2-D multiplanar and 3-D maximum intensity projection. 50 cc of Omnipaque 300 was administered intravenously. Weight-based protocol using automatic tube modulation was used to optimize exposure parameters. CTDIvol Body: 6.14 mGy, DLP Body: 336 mGy*cm. COMPARISONS: 01/17/2022 ANGIOGRAPHIC FINDINGS: Exam is diagnostic to the level of the proximal segmental pulmonary arteries. No filling defect to indicate acute pulmonary thromboembolism. There is no evidence of right heart strain. The thoracic aorta is nonaneurysmal. No acute aortic dissection. NON-ANGIOGRAPHIC FINDINGS: The heart size is enlarged. There is coronary artery atherosclerosis. No significant pericardial fluid. Evaluation of the mediastinum shows no adenopathy. There is decrease in size of previously enlargedright hilar lymph node, now up to 7 to 8 mm, example series 301 image 62. The thyroid gland is unremarkable. There is a stent present in the axillary area, on the left, as before. No acute abnormality of the chest wall with gynecomastia, also as before. Mild stranding seen at the left upper lateral chest wall at series 301 image 67 with stranding continuing more caudally (to the level of the upper abdomen) with mild anasarca. The proximal tracheobronchial tree is patent without endobronchial mass or obstruction. There are diffuse tree in bud nodules present bilaterally, right slightly greater than left involving both upper lobes but also slightly involving the middle lobes and lower lungs. Groundglass nodules are also pr esent. No lobar consolidation. No area of cavitation. There is no pleural effusion. Previously seen lower lung interlobular septal thickening has resolved. Upper abdomen: Limited images of the upper most abdomen show mild distal esophageal wall thickening with small hiatal hernia. Vascular atherosclerosis. There is atrophy of the kidneys. There is partially seen colonwith contrast. Visualized osseous structures: Review of the imaged osseous structures shows no acute or destructive osseous ophthalmology. Unchanged appearance of calcification exophytically from the anterior right third rib. IMPRESSION: No evidence of pulmonary embolism. Multifocal tree-in-bud nodules and groundglass nodules throughout both lungs, concerning for activepulmonary infection. Asymmetric edema at the left chest wall and left abdominal wall. This can relate to patient being in dependent position on this side. Suggest direct clinical examination to exclude skin changes (a portion of the soft tissues are outside the field of view). WSN: [id number] Ordering Physician: Maldonado Queen Dictated By: Teresita Triana MD Dictated Date/Time: 08/28/22 4:57 pm Reviewed By: Teresita Triana MD Signed By: Teresita Triana MD Signed Date/Time: 08/28/22 4:57 pm Transcribed By: AMY Transcribed Date/Time: 08/28/22 4:45 pm * Exam Date Time Procedure Performing Provider Status 08/27/22 1:04 PM US Doppler Ext Lower Venous Bilat Thomhelen son Odalis; Auth (Verified) Notes: (US Doppler Ext Lower Venous Bilat) Reason For Exam: Pain in limb;Other: RESULT: US Doppler Ext Lower Venous Bilat US Doppler Ext Lower Venous Bilat INDICATION: Bilateral calf pain for one week. Rule out venous thrombosis P COMPARISON: None IMAGING TECHNIQUE: Ultrasound of the veins from the groin through the calf was performed using grayscale, color, and spectral Doppler ultrasound assessing for complete compressibility and normal flowcharacteristics. FINDINGS: Technically difficult because of arterial calcification causing some shadowing and obscuration of the veins. RIGHT LOWER EXTREMITY: Common femoral vein: Patent. No thrombosis. Femoral vein: Patent. No thrombosis. Popliteal vein: Patent. No thrombosis. Gastrocnemius veins: The visualized portions are patent without evidence of thrombosis. Peroneal veins: Poorly visualized. Patent anterior branch. Possible short segment thrombus of the posterior branch. Posterior tibial veins: Poorly visualized but no evidence of venous thrombosis. LEFT LOWER EXTREMITY: Common femoral vein: Patent. No thrombosis. Femoral vein: Patent. No thrombosis. Popliteal vein: Patent. No thrombosis. Gastrocnemius veins: The visualized portions are patent without evidence of thrombosis. Peroneal veins: Poorly visualized. Patent anterior branch. Possible short segment thrombus of the posterior branch. Posterior tibial veins: The visualized portions are patent without evidence of thrombosis. OTHER FINDINGS: Triphasic waveform of both common femoral veins likely reflects heart failure. IMPRESSION: Technically difficult study. There is no evidence of venous thrombosis above the knee. The calf veins are poorly visualized. Both peroneal veins have a similar appearance with patent anterior branches but poorly visualized posterior branches with absent flow in the short segment on both sides. Given the symmetry, it seems unlikely that this represents venous thrombosis. WSN: [id number] Ordering Physician: Jaida Stone Dictated By: Ector Riley MD Dictated Date/Time: 08/27/22 1:16 pm Reviewed By: Ector Riley MD Signed By: Ector Riley MD Signed Date/Time: 08/27/22 1:16 pm Transcribed By: AMY Transcribed Date/Time: 08/27/22 1:08 pm * Exam Date Time Procedure Performing Provider Status 08/27/22 6:05 AM Chest 2 Views Frontal and Lat Augustine Chwe; Auth (Verified) Notes: (Chest 2 Views Frontal and Lat) Reason For Exam: Chest Pain;Other: RESULT: Chest 2 Views Frontal and Lat Chest 2 Views Frontal and Lat Hx of Present Illness: Pt reports alternating B L calf pain that started 1 week ago.; Reason: Other:; Chest Pain; Clinical Question(s): Other: / Other: COMPARISON: 06/22/2022 FINDINGS: LINES AND TUBES: None. LUNGS AND PLEURA: Clear lungs. Normal pulmonary vascularity. No pleural effusion. No pneumothorax. HEART, MEDIASTINUM AND MARICARMEN: Heart is normal in size. Normal mediastinal and hilar contour. BONES AND SOFT TISSUES: No acute abnormality. Left axillary stents. IMPRESSION: No evidence of acute abnormality. WSN: [id number] Ordering Physician: Shari Meyer Dictated By: Kennedy Bonilla MD Dictated Date/Time: 08/27/22 7:15 am Reviewed By: Kennedy Bonilla MD Signed By: Kennedy Bonilla MD Signed Date/Time: 08/27/22 7:15 am Transcribed By: AMY Transcribed Date/Time: 08/27/22 7:14 am Vital Signs Most recent to oldest [Reference Range]: 1 2 3 Height 173 cm (08/29/22 12:02 PM) 173 cm (08/29/22 7:27 AM) 173 cm (08/29/22 4:20 AM) Weight 90.5 kg (08/27/22 7:32 PM) 90.5 kg (08/27/22 12:24 PM) 90.5 kg (08/27/22 4:32 AM) Oxygen Saturation [94-100 %] 99 % (08/29/22 12:02 PM) 96 % (08/29/22 7:27 AM) 93 % *L* (08/29/22 4:20 AM) Pulse Rate [55-90 bpm] 72 bpm (08/29/22 12:53 PM) 72 bpm (08/29/22 12:02 PM) 64 bpm (08/29/22 7:27 AM) Body Mass Index [18.5-24.99 kg/m2] 30.24 kg/m2 *>HHI* (08/27/22 7:32 PM) 30.24 kg/m2 *>HHI* (08/27/22 12:24 PM) 30.24 kg/m2 *>HHI* (08/26/22 8:23 PM) Blood Pressure [90-138/55-84 mm Hg] 129/72mm Hg (08/29/22 12:53 PM) 129/72mm Hg (08/29/22 12:02 PM) 106/55mm Hg (08/29/22 7:27 AM) Respiratory Rate [16-30 br/min] 20 br/min (08/29/22 12:53 PM) 18 br/min (08/29/22 12:02 PM) 20 br/min (08/29/22 7:27 AM) Temperature [96.8-100.4 DegF] 97.3 DegF (08/29/22 12:02 PM) 97.7 DegF (08/29/22 7:27 AM) 97.7 DegF (08/29/22 4:20 AM) Mode of Delivery (Oxygen) Room air (08/29/22 12:02 PM) Room air (08/29/22 7:27 AM) Room air (08/29/22 4:20 AM) Blood pressure sites Arm, right (08/29/22 12:02 PM) Arm, right (08/29/22 7:27 AM) Arm, right (08/29/22 4:20 AM) Temperature Route Oral (08/29/22 12:02 PM) Oral (08/29/22 7:27 AM) Oral (08/29/22 4:20 AM) Dry Weight 90.5 kg (08/27/22 7:32 PM) 90.5 kg (08/27/22 12:24 PM) 90.5 kg (08/27/22 4:32 AM) Social History Social History Type Response Smoking Status Never smoker entered on: 01/06/17 Sex Implantable Device List Procedure Provider Procedure Date Device Type Site Creation Arteriovenous Graft Upper Extre Josef Adams MD 03/12/21 Unknown Arm Left Device Identifier Serial Number Lot or Batch Number Manufacturing Date Expiration Date Distinct Identification Code MRI Safety Implantable Status Assigning Authority Unknown [id number] Unknown Unknown 09/26/25 Unknown Unknown Active Unknown Admission evaluation note * Vitaly GREENWOOD, Rina Montanez: MODIFY, MODIFY, PERFORM Event Display: Admission Note Authored Date: [id number] Patient: ??RONI GARZA ? Age:??52 Years?Sex:??Male?:??1970?? Chief Complaint/Reason for Consultation leg cramping History of Present Illness 52-year-old male with PMH of ESRD s/p donor transplant with failed graft and on dialysis TTS schedule.,?? Chronic hyperkalemia, IDDM, HFrEF, coronary artery disease, HTN, HLD, glaucoma came to the ED with complaints of ongoing?? bilateral lower extremity pain. ?? Patient's medical chart reviewed, seen and examined at bedside.?? Patient stated that he has been having ongoing bilateral lower extremity pain for few months without any relief from gabapentin for which he has been using.?? He denies any weakness, tingling, numbness.?? He states he is not able to tolerate for dialysis as he is struggling with his pain.?? Also endorses increased work of breathingand dyspnea on minimal exertion.?? Denies having any chest pain, palpitation, cough, sore throat, runny nose, fever, chills, abdominal pain, constipation, diarrhea.?? Patient states he only makes a little bit of urine.?? By the time of my evaluation patient felt nauseous and had an episode of small vomiting. ?? Initially in the ED patient remains afebrile, HR 71, RR 18, BP 126/81, saturation 96% on room air.?? No leukocytosis WBC 3.9, Hgb 8.8, PLT 133, sodium of 136, K of 6.8, bicarb 21, BUN/creatinine 55/8.8, anion gap of 18, blood glucose 139, magnesium of 2.5, CK of 709, proBNP 89685, alk phos 145, AST/ALT 66/41, T bili 0.6, C-19 negative, chest x-ray no acute findings, ultrasound of the bilaterallower extremity technically difficult study.?? Both peroneal veins have similar appearance with patent anterior branches but poorly visualized posterior branches with absent flow in the short segmentof both sides, given the symmetry seems unlikely that this to presents venous thrombosis.?? Renal was consulted in the ED and patient got hemodialysis.?? Patient will be admitted to inpatient medicine service for hyperkalemia and pain control. Review of Systems All systems reviewed and are negative except as mentioned in HPI Objective Measurements?? Height: 173 cm (08/27/22) Weight: 90.5 kg (08/27/22) Dry Weight: 90.5 kg (08/27/22) Body Mass Index:??30.24 kg/m2??Critical (08/27/22) ? Vital Signs?? Temperature: 98.1 DegF (08/27/22 23:00:00) Temperature Route: Oral (08/27/22 23:00:00) Pulse Rate: 77 bpm (08/27/22 23:00:00) Respiratory Rate: 18 br/min (08/27/22 23:44:00) Systolic Blood Pressure: 104 mm Hg (08/27/22 23:00:00) Diastolic Blood Pressure: 67 mm Hg (08/27/22 23:00:00) Blood pressure sites: Arm, right (08/27/22 23:00:00) Mean Arterial Pressure: 83 mm Hg (08/27/22 19:32:00) Pulse Pressure: 37 mm Hg (08/27/22 23:00:00) Oxygen Saturation: 94 % (08/27/22 23:00:00) Mode of Delivery (Oxygen): Room air (08/27/22 23:00:00) Early Warning Score: 8 (08/27/22 23:52:44) ? Pain Scores?? No qualifying data available. ? Intake/Output? 08/27 13:11 08/28 07:00 08/27 07:00 08/26 07:00 08/25 07:00 ?? 08/28 00:26 08/28 00:26 08/28 06:59 08/27 06:59 08/26 06:59 Intake ?0 ?0 ?0 ?0 ?0 Output ? 3700 ?0 ? 3700 ?0 ?0 Net Total ?-3700 ?0 ?-3700 ?0 ?0 ? Precautions No Precautions documented.? Physical Exam ?? Gen- not in acute distress,??states pain has improved, had episode of nausea and vomiting HEENT- Normocephalic, Atraumatic, No pallor, icterus Neck-supple, no JVD Heart-S1S2(+),??regular, no murmurs. lungs- Clear, b/l air entry, no wheezing/rales/rhonchi. Abdomen-soft, nontender,nondistended,??bowel sounds present in 4q, No guarding, No rigidity. Extremities-pulses palpable??2+. No pedal edema. No calf tenderness. Neurological- AAO??3. Psychiatric-patient???s mood is stable. ? (08/27/2022 06:05 EST Chest 2 Views Frontal and Lat) IMPRESSION: ?? No evidence of acute abnormality. ? (08/27/2022 13:04 EST US Doppler Ext Lower Venous Bilat) IMPRESSION:? Technically difficult study. There is no evidence of venous thrombosis above the knee. The calf veins are poorly visualized. Both peroneal veins have a similar appearance with patent anterior branches but poorly visualized posterior branches with absent flow in the short segment on both sides. Given the symmetry, it seems unlikely that this represents venous thrombosis. Assessment/Plan 52-year-old male with PMH of ESRD s/p donor transplant with failed graft and on dialysis TTS schedule.,?? Chronic hyperkalemia, IDDM, HFrEF, coronary artery disease, HTN, HLD, glaucoma came to the ED with complaints of ongoing?? bilateral lower extremity pain. Initially in the ED patient remains afebrile, HR 71, RR 18, BP 126/81, saturation 96% on room air.?? No leukocytosis WBC 3.9, Hgb8.8, PLT 133, sodium of 136, K of 6.8, bicarb 21, BUN/creatinine 55/8.8, anion gap of 18, blood glucose 139, magnesium of 2.5, CK of 709, proBNP 76230, alk phos 145, AST/ALT 66/41, T bili 0.6, C-19 negative, chest x-ray no acute findings, ultrasound of the bilateral lower extremity technically diffi cult study.?? Both peroneal veins have similar appearance with patent anterior branches but poorly visualized posterior branches with absent flow in the short segment of both sides, given the symmetry seems unlikely that this to presents venous thrombosis.?? Renal was consulted in the ED and patient got hemodialysis.?? Patient will be admitted to inpatient medicine service for hyperkalemia and pain control. ? ESRD on hemodialysis Hyperkalemia Vitals as per unit standards Renally dose medications Renal consulted, appreciate recommendations. Patient undergone hemodialysis yesterday On renal diet??with 1.4 L fluid restriction Lokelma??while on nondialysis days Sevelamer??800 mg 3 times daily with meals Calcitriol 1.5 mcg??on TTS??schedule Cinacalcet 30 mg daily Magnesium oxide 4 mg??daily Mycophenolate??540 mg twice daily ?? CAD/HFrEF Daily weights Lasix 80 mg daily Tamsulosin 0.4 mg daily Metoprolol 100 mg daily Plavix 75 mg daily ?? Bilateral lower extremity pain/neuropathy Pain control with Tylenol and Dilaudid as needed DVT study negative Leg elevation ?? IDDM - On lispro sliding scale HTN???metoprolol, Lasix HLD???atorvastatin??40 mg daily Glaucoma???brimonidine, latanoprost ophthalmic solution ?? Code???full, signed MOLST in CIS Diet???renal DVT prophylaxis???subcu heparin ?? Patient seen and examined on??08/27/2022 Histories Allergies Allergies ?(Active and Proposed Allergies Only) fentanyl? (Severity: Unknown, Onset: Unknown) ?Reactions: trouble breathing ?Comments: unsure which caused trouble breathing- the Ancef or the Fentanyl- got both with a surgery Ancef? (Severity: Unknown, Onset: Unknown) ?Reactions: trouble breathing ?Comments: unsure which caused trouble breathing- the Ancef or the Fentanyl - received both during a surgery Lyrica? (Severity: Unknown, Onset: Unknown) ?Reactions: mind races ? Past Medical History/Problem List Active Problems??(8) CAD (coronary artery disease) Chronic kidney disease (CKD) Chronic systolic congestive heart failure Diabetes mellitus type 1 Foot pain Hypertension Neuropathy Transplanted kidney present ? Past Surgical History No surgery history documented. ? Social History Alcohol Details:??Use: Never. Substance Abuse Details:??Use: Never. Tobacco Details:??Never smoker ? Family History No family history recorded. ? Medications Home Medications Atorvastatin (atorvastatin 40 mg oral tablet)?1?tab(s)?40?Milligram?By Mouth?Daily at bedtime Brimonidine Ophthalmic (brimonidine 0.2% ophthalmic solution)?1?Drops?Eyes, Both?2 times a day Calcitriol (calcitriol 0.5 mcg oral capsule)?3?capsule?1.5?Microgram?By Mouth?Every Friday, and Friday?for 30?Days Cinacalcet (Sensipar 30 mg oral tablet)?1?tab(s)?30?Milligram?By Mouth?Daily Clopidogrel (clopidogrel 75 mg oral tablet)?75?Milligram?1?tablet?By Mouth?Daily?for 30?Days Cyanocobalamin (cyanocobalamin 1000 mcg oral tablet)?1,000?Microgram?1?tablet?By Mouth?Daily Epoetin Brett?1?Milliliter?40,000?unit(s)?Subcutaneous Injection?Every week Fluticasone-Salmeterol (Advair Diskus 250 mcg-50 mcg inhalation powder)?1?puff(s)?Inhalation?2 times a day Folic Acid (folic acid 1 mg oral tablet)?1?Milligram?1?tablet?By Mouth?Daily Furosemide (furosemide 80 mg oral tablet)?80?Milligram?1?tablet?By Mouth?Daily Insulin Lispro (insulin lispro 100 u/ml subcutaneous injection)?8 - 18 units?Subcutaneous Injection?3 times a day before meals?<< Sliding Scale Comments >>Call if less than [id number] - 140 ?? 8 [id number] - 180 ?? 9 units 181 - 220 ?? 10 units 221 - 260 ?? 11 units 261 - 300 ?? 12units 301 - 340 ?? 13 units 341 - 380 ?? 14 units 381 - 400 ?? 15 [id number] - 440 ?? 18 units... Latanoprost Ophthalmic (Xalatan 0.005% solution)?1?Drops?Eyes, Both?Daily at bedtime Magnesium Oxide (magnesium oxide 400 mg oral tablet)?See Instructions?TAKE 2 TABLETS BY MOUTHEVERY DAY Melatonin (melatonin 3 mg oral tablet)?3?Milligram?By Mouth?Daily at bedtime?as needed?as needed for insomnia Metoprolol (metoprolol 100 mg oral tablet, extended release)?100?Milligram?1?tablet?By Mouth?Daily Mycophenolate Sodium (mycophenolic acid 180 mg oral delayed release tablet)?3?tab(s)?540?Milligram?By Mouth?2 times a day Pantoprazole (pantoprazole 40 mg oral delayed release tablet)?40?Milligram?By Mouth?2 times a day Sevelamer (Renvela 800 mg oral tablet)?1?tab(s)?800?Milligram?By Mouth?3 times a day with meals sodium zirconium cyclosilicate (sodium zirconium cyclosilicate 10 g oral powder for reconstitution)?10?gram?By Mouth?Every Friday, Friday and Friday?dilute w/45 ml water, mix well, and drink immediately Tamsulosin (tamsulosin 0.4 mg oral capsule)?0.4?Milligram?1?capsule?By Mouth?Daily at bedtime ? Inpatient Medications Medications (24) Active SCHEDULED: (19) Atorvastatin 40 mg Tablet (atorvastatin 40 mg oral tablet) ??40 mg, By Mouth, Daily at bedtime Brimonidine 0.2% Ophthalmic Solution (brimonidine 0.2% ophthalmic solution) ??0.2 % 1 drops, Eyes, Both, 2 times a day Calcitriol 0.25 mcg Capsule (calcitriol 0.25 mcg oral capsule) ??1.5 mcg, By Mouth, Every Friday, and Friday Cinacalcet 30mg Tablet (Sensipar 30 mg oral tablet) ??30 mg, By Mouth, Daily Clopidogrel 75 mg Tablet (clopidogrel 75 mg oral tablet) ??75 mg, By Mouth, Daily Folic Acid 1 mg Tablet (folic acid 1 mg oral tablet) ??1 mg, By Mouth, Daily Furosemide 80 mg Tablet (furosemide 80 mg oral tablet) ??80 mg, By Mouth, Daily Heparin 5000 units/mL Inj (1 mL) (Heparin Inj) ??5,000 units 1 mL, Subcutaneous Injection, 2 times a day Insulin Lispro 100 units/mL Inj (3mL) (Insulin LISPRO Sliding Scale) ??2-10 units, Subcutaneous Injection, 3 times a day before meals Latanoprost 0.005% Ophthalmic Solution (Xalatan 0.005% solution) ??1 drops, Eyes, Both, Daily at bedtime Magnesium Oxide 400 mg Tablet (magnesium oxide 400 mg oral tablet) ??800 mg, By Mouth, Daily Metoprolol 100 mg XL Tablet (metoprolol 100 mg oral tablet, extended release) ??100 mg, By Mouth, Daily Mycophenolate Sodium 180mg ER Tablet (mycophenolic acid 180 mg oral delayed release tablet) ??540 mg, By Mouth, 2 times a day NaCl 0.9% Flush 3ml (NaCL 0.9% Flush) ??3 mL, IV Push, Every 8 hours Pantoprazole 40 mg EC Tablet (pantoprazole 40 mg oral delayed release tablet) ??40 mg, By Mouth, 2 times a day Sevelamer Carbonate 800 mg Tablet (Renvela 800 mg oral tablet) ??800 mg, By Mouth, 3 times a day with meals Sodium Zirconium 10 Gm Packet (Sodium Zirconium Packet) ??10 Gm 1 pack/packet, By Mouth, Every Friday, Friday and Friday Tamsulosin 0.4 mg Capsule (tamsulosin 0.4 mg oral capsule) ??0.4 mg, By Mouth, Daily at bedtime Vitamin B-12 ??1000 mcg Tablet (cyanocobalamin 1000 mcg oral tablet) ??1,000 mcg, By Mouth, Daily CONTINUOUS: (0) PRN: (5) Acetaminophen 325 mg Tablet (Acetaminophen Tablet) ??650 mg, By Mouth, Every 4 hours HYDROmorphone 0.5 mg/0.5 mL Inj Syringe (Dilaudid Inj) ??0.5 mg 0.5 mL, IV Push Slowly, Every 4 hours Melatonin 3 mg Tablet (Melatonin Tablet) ??3 mg, By Mouth, Daily at bedtime NaCl 0.9% Flush 3ml (NaCL 0.9% Flush) ??3 mL, IV Push, Every 8 hours Senna 8.6 mg / Docusate 50 mg tablet (Docusate/Senna Tablet) ??1 tablet, By Mouth, 2 times a day ? Results Recent Labs BLOOD COUNT & DIFF WBC 3.9 k/mm3 (Low)?? 08/27/2022 09:35 RBC 3.13 m/mm3 (Low)?? 08/27/2022 09:35 Hgb 8.8 Gm/dL (Low)?? 08/27/2022 09:35 Hct 30.7 % (Low)?? 08/27/2022 09:35 MCV 98.1 femtoliters (High)?? 08/27/2022 09:35 MCH 28.1 pg ()?? 08/27/2022 09:35 MCHC 28.7 g/dL (Low)?? 08/27/2022 09:35 Platelet Count 133 k/mm3 (Low)?? 08/27/2022 09:35 RDW-SD 67.4 femtoliters (High)?? 08/27/2022 09:35 MPV 9.7 femtoliters ()?? 08/27/2022 09:35 Nucleated RBC (Automated) 0.0 #/100 WBC'S ()?? 08/27/2022 09:35 Abs. NRBC 0.0 k/mm3 ()?? 08/27/2022 09:35 Abs. Neut 2.8 k/mm3 ()?? 08/27/2022 09:35 Abs. Lymph 0.5 k/mm3 (Low)?? 08/27/2022 09:35 Abs. [place] 0.6 k/mm3 ()?? 08/27/2022 09:35 Abs. Eo 0.1 k/mm3 ()?? 08/27/2022 09:35 Abs. Baso 0.0 k/mm3 ()?? 08/27/2022 09:35 Neut % 70.8 % ()?? 08/27/2022 09:35 Lymph % 11.5 % (Low)?? 08/27/2022 09:35 [place] % 14.1 % (High)?? 08/27/2022 09:35 Eos % 2.8 % ()?? 08/27/2022 09:35 Baso % 0.5 % ()?? 08/27/2022 09:35 Imm Gran 0.3 % ()?? 08/27/2022 09:35 Abs. Imm Gran 0.0 k/mm3 ()?? 08/27/2022 09:35 ?? CARDIAC CK, Total 709 units/L (High)?? 08/27/2022 09:08 CK MB Confirmation - Quant 10.8 ng/mL (High)?? 08/27/2022 09:08 Nt-Probnp 89271 pg/mL (High)?? 08/27/2022 09:08 ?? CHEM GENERAL Sodium 136 mmol/L ()?? 08/27/2022 09:08 Potassium 6.8 mmol/L (Critical)?? 08/27/2022 09:08 Chloride 97 mmol/L (Low)?? 08/27/2022 09:08 Bicarbonate Level 21 mmol/L (Low)?? 08/27/2022 09:08 Anion Gap 18 (High)?? 08/27/2022 09:08 Glucose Level 162 mg/dL (High)?? 08/27/2022 09:08 Glucose, POC 139 mg/dL (High)?? 08/27/2022 21:13 BUN 55 mg/dL (High)?? 08/27/2022 09:08 Creatinine-Blood 8.8 mg/dL (High)?? 08/27/2022 09:08 Estimated GFR Creatinine 7 ML/MIN/1.73 M2 ()?? 08/27/2022 09:08 Calcium 6.8 mg/dL (Low)?? 08/27/2022 09:08 Magnesium 2.5 mg/dL (High)?? 08/27/2022 09:08 Protein, Total 7.3 Gm/dL ()?? 08/27/2022 09:08 Albumin 4.2 Gm/dL ()?? 08/27/2022 09:08 AG Ratio 1.4 ()?? 08/27/2022 09:08 Alkaline Phosphatase 145 units/L (High)?? 08/27/2022 09:08 AST (SGOT) 66 units/L (High)?? 08/27/2022 09:08 ALT (SGPT) 41 units/L ()?? 08/27/2022 09:08 Bilirubin, Total 0.6 mg/dL ()?? 08/27/2022 09:08 Vitamin B12 Level 3683 pg/mL (High)?? 08/27/2022 09:08 Folic Acid Level 26.0 ng/mL ()?? 08/27/2022 09:08 ?? HEME OTHER Hold Blue Top SPECIMEN DISCARDED AFTER 4 HOURS. ()?? 08/27/2022 09:35 ?? VIROLOGY COVID-19 POC Result NEGATIVE ()?? 08/27/2022 05:13 ? Urinalysis?? No qualifying data available. ? Cardiology Labs CK, Total:??709 units/L??High (08/27/22 09:08:00) CK, Total:??709 units/L??High (08/27/22 09:08:00) CK MB Confirmation - Quant:??10.8 ng/mL??High (08/27/22 09:08:00) Nt-Probnp:??77552 pg/mL??High (08/27/22 09:08:00) ? [1]??US Doppler Ext Lower Venous Bilat; Ector Riley MD 08/27/2022 13:04 EST EKG study * Event Display: ECG 12-Lead Authored Date: Please click on pdf link to open report * Event Display: ECG 12-Lead Authored Date: Ventricular Rate: 71 BPM Atrial Rate: 71 BPM P-R Interval: 214 ms QRS Duration: 96 ms Q-T Interval: 440 ms QTC Calculation(Bazett): 478 ms P Manton: 58 degrees R Manton: 0 degrees T Manton: 79 degrees Poor data quality, interpretation may be adversely affected Sinus rhythm with 1st degree A-V block Otherwise normal ECG Confirmed by RAJAT FARRIS ([id number]) on 08/28/2022 4:18:03 PM [place]: RAJAT FARRIS [facility] Progress note * Toshia Wick: PERFORM, SIGN, VERIFY Event Display: [facility] Authored Date: [id number] Patient: RONI GARZA Age: 52 years Sex: Male : 1970 Associated Diagnoses: None Author: Toshia Wick Findings Narrative/Incidental Patient received 4 hours of treatment today and removed 3 L of fluid. Pt hematocrit line at the endof treatment was negative 14.6 % and tolerated well. Pt denies dizziness or cramping. BP and vitalswere within normal limits throughout treatment. Patient fistula had no signs or symptoms of infection and ran at prescribed BFR. Bruit and thrill were positive upon assessment. CBC and Lytes were drawn at the beginning of treatment. See interactive flowsheet for vital signs post ICHD treatment. Seepaper flowsheet for pre-treatment assessment and medications given. Patient was stable when transferred off unit. . * Miguelangel Cancino MD: SIGN, MODIFY Wes Lezama: PERFORM, SIGN Wes Lezama: SIGN, VERIFY Wes Lezama: VERIFY Event Display: Progress Note Hospital Authored Date: [id number] Patient: RONI GARZA Age: 52 years Sex: Male : 1970 Associated Diagnoses: None Author: Wes Lezama [facility] Progress Note Interval History No overnight events Seen and examined on HD, no complaints Plan for discharge today Review of Systems Review of Systems Constitutional: no fever, no night sweats. Respiratory: no shortness of breath. Cardiovascular: no peripheral edema, no chest pain. Gastrointestinal: no abdominal pain. Physical Examination Vital Signs Vitals : VITALS 08/29/2022 7:27 EST Temperature 97.7 DegF Temperature Route Oral Pulse Rate 64 bpm Respiratory Rate 20 br/min Systolic Blood Pressure 106 mm Hg Diastolic Blood Pressure 55 mm Hg Blood pressure sites Arm, right Mean Arterial Pressure 72 mm Hg Pulse Pressure 51 mm Hg Oxygen Saturation 96 % Mode of Delivery (Oxygen) Room air . General Appearance NAD. HEENT Moist mucous membranes. Respiratory Lungs: CTA. Cardiac Cardiac: no M/G/R. Rhythms: RRR. Abdomen/GI Abdomen: soft. Extremities No edema. Neurologic Alert & oriented x 3 . Results Review 7 Day Results Results Laboratory : LABORATORY 08/29/2022 7:50 EST WBC 3.4 k/mm3 L RBC 2.96 m/mm3 L Hgb 8.4 Gm/dL L Hct 28.2 % L MCV 95.3 femtoliters H MCH 28.4 pg MCHC 29.8 g/dL L Platelet Count 159 k/mm3 RDW-SD 65.3 femtoliters H MPV 10.2 femtoliters Nucleated RBC (Automated) 0.0 #/100 WBC'S Abs. NRBC 0.0 k/mm3 Sodium 133 mmol/L Potassium 4.7 mmol/L Chloride 95 mmol/L L Bicarbonate Level 24 mmol/L Anion Gap 14 Impression and Plan Roni Garza is [id number] male with PMH of ESRD s/p donor transplant with failed graftand on dialysis TTS schedule, chronic hyperkalemia, IDDM, HFrEF, coronary artery disease, HTN, HLD,glaucoma came to the ED with complaints of ongoing bilateral lower extremity pain, ultrasound of the bilateral lower extremity technically difficult study. Both peroneal veins have similar appearancewith patent anterior branches but poorly visualized posterior branches with absent flow in the short segment of both sides, given the symmetry seems unlikely that this to presents venous thrombosis. 1. ESRD / Hyperkalemia Pt dialyzes TTS at [facility] Plan - HD on TTS schedule - [facility] 10gm on non-dialysis day - Mycophenolate 540 mg twice daily - Renal diet 2. HTN / Volume Chronically, patient takes Lasix 80mg daily and metoprolol 100mg daily. Plan - Continue Lasix 80mg daily and metoprolol 100mg daily. 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 Tsat 42% and ferritin 1,205 (08/08). Plan - EPO 20,000u weekly 4. Secondary Hyperparathyroidism / MBD Phos 3.8 and calcium 6.8 (08/28). PTH 40 (08/08). Plan - Discontinue Sensipar - Discontinue Calcitriol - Dialyze on 3 Ca bath - Sevelamer 800mg TID w/ meals - Renal diet (phos restrict) Thank you for the courtesy of this consult, [facility] will continue monitoring the patient along with you. Please do not hesitate to call us with any further questions. Wes Gifford PA-C [facility] [address], [address] Available by [facility] * Miguelangel Cancino MD P: PERFORM Event Display: Progress Note Hospital Authored Date: Seen on HD. Agree with assessment and plan as outlined. Miguelangel Cancino MD Renal Attending [facility] * India Pinzon RN: PERFORM, MODIFY, SIGN, VERIFY, SIGN, MODIFY Event Display: Progress Note Hospital Authored Date: Patient: RONI GARZA Age: 52 years Sex: Male : 1970 Associated Diagnoses: None Author: India Pinzon RN Alert and oriented x4. Complained of BLE pain 8/10 medicated with Dilaudid 0.5mg with good effect. Lungs clear. Denies cough, SOB or chest pain. +BS abdomen round non tender. Denies N/V. Tolerating diet and compliant with 1500ml fluid restricition. 2+ edema noted to BLE's. AV fistula in left arm. Patient using own insulin pump at bedside. Vitals stable, afebrile. Patient left unit for Dialysis this AM. * India Pinzon RN: PERFORM Event Display: Progress Note Hospital Authored Date: [id number] Discharge order in placed transport from Dialysis to S3. Report given to S3 nurse. Note * Elise Winn RN: PERFORM Event Display: Discharge/Transfer Note Hospital Authored Date: [id number] Nursing Discharge Note Entered On: 08/29/2022 15:06 EST Performed On: 08/29/2022 15:04 EST by Elise Winn RN Nursing Discharge Note 2 Discharge Time : 08/29/2022 13:49 EST Discharge Level of Care at Discharge : Home/[facility]oster [facility] Patient Left Unit Via : Chair [facility] Patient Accompanied Off Unit with : Ambulance/[facility] Personnel Handover Given to Transport Personnel : Yes DC Instructions Provided & Signed by Pt : Yes Patient Understands D/C Instructions : Yes Verbalized Understanding of D/C Plan By : Patient Patient Instructions Discharge Signed : Yes Did Pt have Specialty Bed or Wound Vac : No Elise Winn RN - 08/29/2022 15:04 EST * Bret GREENWOOD, Maldonado Jameson: PERFORM Event Display: Discharge/Transfer Note Hospital Authored Date: [id number] Patient: ??RONI GARZA ? Age:??52 Years?Sex:??Male?:??1970?? Patient Information Discharge Location: S1 Primary Care Physician: Krishna Tapia MD Admit Date/Time: 08/27/22 13:11 Discharge Disposition Discharge Disposition: ?? Discharge Diagnosis ESRD needing dialysis (N18.6) Heart failure (I50.9) Leg pain (M79.606) Neuropathy (G62.9) ?? _ Discharge Medications Atorvastatin (atorvastatin 40 mg oral tablet)?1?tab(s)?40?Milligram?By Mouth?Daily at bedtime Brimonidine Ophthalmic (brimonidine 0.2% ophthalmic solution)?1?Drops?Eyes, Both?2 times a day Calcitriol (calcitriol 0.5 mcg oral capsule)?3?capsule?1.5?Microgram?By Mouth?Every Friday, and Friday?for 30?Days Cinacalcet (Sensipar 30 mg oral tablet)?1?tab(s)?30?Milligram?By Mouth?Daily Clopidogrel (clopidogrel 75 mg oral tablet)?75?Milligram?1?tablet?By Mouth?Daily?for 30?Days Cyanocobalamin (cyanocobalamin 1000 mcg oral tablet)?1,000?Microgram?1?tablet?By Mouth?Daily Doxycycline (doxycycline monohydrate 100 mg oral capsule)?1?capsule?100?Milligram?ByMouth?Every 12 hours?for 7?Days Epoetin Brett?1?Milliliter?40,000?unit(s)?Subcutaneous Injection?Every week Fluticasone-Salmeterol (Advair Diskus 250 mcg-50 mcg inhalation powder)?1?puff(s)?Inhalation?2 times a day Folic Acid (folic acid 1 mg oral tablet)?1?Milligram?1?tablet?By Mouth?Daily Furosemide (furosemide 80 mg oral tablet)?80?Milligram?1?tablet?By Mouth?Daily Gabapentin (gabapentin 300 mg oral capsule)?300?Milligram?1?capsule?By Mouth?3 times a day?for 30?Days Insulin Lispro (insulin lispro 100 u/ml subcutaneous injection)?8 - 18 units?Subcutaneous Injection?3 times a day before meals?<< Sliding Scale Comments >>Call if less than [id number] - 140 ?? 8 [id number] - 180 ?? 9 units 181 - 220 ?? 10 units 221 - 260 ?? 11 units 261 - 300 ?? 12units 301 - 340 ?? 13 units 341 - 380 ?? 14 units 381 - 400 ?? 15 [id number] - 440 ?? 18 units... Latanoprost Ophthalmic (Xalatan 0.005% solution)?1?Drops?Eyes, Both?Daily at bedtime Magnesium Oxide (magnesium oxide 400 mg oral tablet)?See Instructions?TAKE 2 TABLETS BY MOUTHEVERY DAY Melatonin (melatonin 3 mg oral tablet)?3?Milligram?By Mouth?Daily at bedtime?as needed?as needed for insomnia Metoprolol (metoprolol 100 mg oral tablet, extended release)?100?Milligram?1?tablet?By Mouth?Daily Mycophenolate Sodium (mycophenolic acid 180 mg oral delayed release tablet)?3?tab(s)?540?Milligram?By Mouth?2 times a day Pantoprazole (pantoprazole 40 mg oral delayed release tablet)?40?Milligram?By Mouth?2 times a day Sevelamer (Renvela 800 mg oral tablet)?1?tab(s)?800?Milligram?By Mouth?3 times a day with meals sodium zirconium cyclosilicate (sodium zirconium cyclosilicate 10 g oral powder for reconstitution)?10?gram?By Mouth?Every Friday, Friday and Friday?dilute w/45 ml water, mix well, and drink immediately Tamsulosin (tamsulosin 0.4 mg oral capsule)?0.4?Milligram?1?capsule?By Mouth?Daily at bedtime ? Doses Changed Gabapentin dose increased from 200 mg TID to 300 mg TID Allergies Allergies ?(Active and Proposed Allergies Only) fentanyl? (Severity: Unknown, Onset: Unknown) ?Reactions: trouble breathing ?Comments: unsure which caused trouble breathing- the Ancef or the Fentanyl- got both with a surgery Ancef? (Severity: Unknown, Onset: Unknown) ?Reactions: trouble breathing ?Comments: unsure which caused trouble breathing- the Ancef or the Fentanyl - received both during a surgery Lyrica? (Severity: Unknown, Onset: Unknown) ?Reactions: mind races ? Future Appointments Friday 10:30 AM EST ?? With: Santiago Batres Where: [facility] 2022 4:00 PM EST ?? With: Kailey GREENWOOD, Rachel Cross Where: [facility] [address] [place] [address]- Friday 11:15 AM EDT ?? With: Where: [facility] [address] [address]- Friday 9:00 AM EDT ?? With: Vidal GREENWOOD, Vincent Hughes Where: [facility] [address] [address]- Hospital Course 52 y/o male with h/o ESRD s/p donor transplant with failed graft and on dialysis TTS schedule., Chronic hyperkalemia, IDDM, HFrEF, coronary artery disease, HTN, HLD, glaucoma came to the ED with complaints of ongoing bilateral lower extremity pain. Initially in the ED patient remains afebrile, HR 71, RR 18, BP 126/81, saturation 96% on room air. No leukocytosis WBC 3.9, Hgb 8.8, PLT 133,sodium of 136, K of 6.8, bicarb 21, BUN/creatinine 55/8.8, anion gap of 18, blood glucose 139, magnesium of 2.5, CK of 709, proBNP 36503, alk phos 145, AST/ALT 66/41, T bili 0.6, C-19 negative, chestx-ray no acute findings, ultrasound of the bilateral lower extremity technically difficult study. Both peroneal veins have similar appearance with patent anterior branches but poorly visualized posterior branches with absent flow in the short segment of both sides, given the symmetry seems unlikelythat this to presents venous thrombosis. ? ESRD on hemodialysis Hyperkalemia Nephrology on board ?? He is being discharged home in a stable??condition ?? Will continue HD T,Th,Sat [facility] while on nondialysis days Sevelamer 800 mg 3 times daily with meals Calcitriol 1.5 mcg on TTS schedule Cinacalcet 30 mg daily Mycophenolate 540 mg twice daily ?? CAD/HFrEF Patient c/o sob even going to bath room, this is fort last one week CXR does not show any pulm edema US Doppler ruled out??DVT CTA chest ruled out??PE CTA suggested concern for infection ?? Plan: Will give a course of PO Doxycycline? Lasix 80 mg daily Tamsulosin 0.4 mg daily Metoprolol 100 mg daily Plavix 75 mg daily ?? Bilateral lower extremity pain/neuropathy ??Pain control with??and Neurontin ? IDDM -Continue insulin pump ? Neuropathy: He takes Gabapentin, will continue ?200 mg TID at home and asking to increase dose ?? HTN???metoprolol, Lasix ? HLD???atorvastatin 40 mg daily ? Glaucoma???brimonidine, latanoprost ophthalmic solution ? Code Status: Full Code ?Diet???renal ? Objective Assessment and Plan Vital Signs?? Temperature: 97.7 DegF (08/29/22 07:27:00) Temperature Route: Oral (08/29/22 07:27:00) Pulse Rate: 64 bpm (08/29/22 07:27:00) Respiratory Rate: 20 br/min (08/29/22 07:27:00) Systolic Blood Pressure: 106 mm Hg (08/29/22 07:27:00) Diastolic Blood Pressure: 55 mm Hg (08/29/22 07:27:00) Blood pressure sites: Arm, right (08/29/22 07:27:00) Mean Arterial Pressure: 72 mm Hg (08/29/22 07:27:00) Pulse Pressure: 51 mm Hg (08/29/22 07:27:00) Oxygen Saturation: 96 % (08/29/22 07:27:00) Mode of Delivery (Oxygen): Room air (08/29/22 07:27:00) Early Warning Score: 5 (08/29/22 08:41:22) ? . Physical Exam Awake, alert, oriented Lungs: Clear to auscultation bilateral, no wheezing no rales Heart: Regular rate and rhythm, no murmur, no rub or gallop Abdomen: Soft, nontender, nondistended; Bowel sounds present Extremity: b/l edema, no cyanosis clubbing Neurological: No focal deficit Psychiatric: Normal mood and affect Pending Results Add On Lab Order ordered on 08/27/2022 Add On Lab Order ordered on 08/27/2022 Add On Lab Order ordered on 08/27/2022 Add On Lab Order ordered on 08/29/2022 B Type Natriuretic Peptide ordered on 08/27/2022 COVID-19 (2019 Novel Coronavirus) PCR ordered on 08/29/2022 Comprehensive Metabolic Panel ordered on 08/27/2022 Electrolytes ordered on 08/29/2022 Follow-Up Appointments Added Follow Up ?Time Frame ?Comments Krishna Tapia MD?1 week Home Health Face to Face ^[facility] Results Discharge Labs BLOOD COUNT & DIFF WBC 3.4 k/mm3 (Low)?? 08/29/2022 07:50 RBC 2.96 m/mm3 (Low)?? 08/29/2022 07:50 Hgb 8.4 Gm/dL (Low)?? 08/29/2022 07:50 Hct 28.2 % (Low)?? 08/29/2022 07:50 MCV 95.3 femtoliters (High)?? 08/29/2022 07:50 MCH 28.4 pg ()?? 08/29/2022 07:50 MCHC 29.8 g/dL (Low)?? 08/29/2022 07:50 Platelet Count 159 k/mm3 ()?? 08/29/2022 07:50 RDW-SD 65.3 femtoliters (High)?? 08/29/2022 07:50 MPV 10.2 femtoliters ()?? 08/29/2022 07:50 Nucleated RBC (Automated) 0.0 #/100 WBC'S ()?? 08/29/2022 07:50 Abs. NRBC 0.0 k/mm3 ()?? 08/29/2022 07:50 Abs. Neut 2.8 k/mm3 ()?? 08/27/2022 09:35 Abs. Lymph 0.5 k/mm3 (Low)?? 08/27/2022 09:35 Abs. [place] 0.6 k/mm3 ()?? 08/27/2022 09:35 Abs. Eo 0.1 k/mm3 ()?? 08/27/2022 09:35 Abs. Baso 0.0 k/mm3 ()?? 08/27/2022 09:35 Neut % 70.8 % ()?? 08/27/2022 09:35 Lymph % 11.5 % (Low)?? 08/27/2022 09:35 [place] % 14.1 % (High)?? 08/27/2022 09:35 Eos % 2.8 % ()?? 08/27/2022 09:35 Baso % 0.5 % ()?? 08/27/2022 09:35 Imm Gran 0.3 % ()?? 08/27/2022 09:35 Abs. Imm Gran 0.0 k/mm3 ()?? 08/27/2022 09:35 ?? CARDIAC CK, Total 709 units/L (High)?? 08/27/2022 09:08 CK MB Confirmation - Quant 10.8 ng/mL (High)?? 08/27/2022 09:08 Nt-Probnp 96440 pg/mL (High)?? 08/27/2022 09:08 ? CHEM GENERAL Sodium 136 mmol/L ()?? 08/28/2022 07:35 Potassium 5.8 mmol/L (High)?? 08/28/2022 07:35 Chloride 97 mmol/L (Low)?? 08/28/2022 07:35 Bicarbonate Level 23 mmol/L ()?? 08/28/2022 07:35 Anion Gap 16 ()?? 08/28/2022 07:35 Glucose Level 117 mg/dL (High)?? 08/28/2022 07:35 Glucose, POC 159 mg/dL (High)?? 08/28/2022 21:15 BUN 39 mg/dL (High)?? 08/28/2022 07:35 Creatinine-Blood 7.0 mg/dL (High)?? 08/28/2022 07:35 Estimated GFR Creatinine 9 ML/MIN/1.73 M2 ()?? 08/28/2022 07:35 Calcium 6.8 mg/dL (Low)?? 08/28/2022 07:35 Phosphorus 3.8 mg/dL ()?? 08/28/2022 07:35 Magnesium 2.2 mg/dL ()?? 08/28/2022 07:35 Protein, Total 7.3 Gm/dL ()?? 08/27/2022 09:08 Albumin 4.2 Gm/dL ()?? 08/27/2022 09:08 AG Ratio 1.4 ()?? 08/27/2022 09:08 Alkaline Phosphatase 145 units/L (High)?? 08/27/2022 09:08 AST (SGOT) 66 units/L (High)?? 08/27/2022 09:08 ALT (SGPT) 41 units/L ()?? 08/27/2022 09:08 Bilirubin, Total 0.6 mg/dL ()?? 08/27/2022 09:08 Vitamin B12 Level 3683 pg/mL (High)?? 08/27/2022 09:08 Folic Acid Level 26.0 ng/mL ()?? 08/27/2022 09:08 ?? HEME OTHER Hold Blue Top SPECIMEN DISCARDED AFTER 4 HOURS. ()?? 08/27/2022 09:35 ? VIROLOGY COVID-19 POC Result NEGATIVE ()?? 08/27/2022 05:13 ? 30 minutes spent on discharge * Pa JESSICA, Elise Díaz: PERFORM Event Display: Patient Education/Instruction Authored Date: [id number] Inpatient Adult Discharge Instructions [address] [address] Name: RONI GARZA : 1970 Visit: 08/27/2022 13:11:00 Current Date: 08/29/2022 12:38 Account: [id number] Inpatient Adult Discharge Instructions We would like to thank you for allowing us to assist you with your healthcare needs. The following includes patient education materials and information regarding your injury/illness. Our entire staffstrives to provide an excellent experience for our patients and their families. PLEASE ENSURE YOU FOLLOW-UP PER THE INSTRUCTIONS BELOW! ?? YOUR OPINION IS IMPORTANT TO US! Please complete the survey you may receive by mail or email. Your feedback will be used to make improvements to the healthcare experiences of our patients and their families. Surveys are administered by [employer] ?? If further treatment with your primary care physician or another doctor is recommended, it is important for you to keep the appointment. Call your primary care physician or return to the Emergency Department immediately if your condition worsens, fails to improve, or new symptoms develop. If you need to find a doctor, you can call [facility] for a referral at [phone] or toll free at [phone] or log in to [email or web address] ?? You can view and manage your care through the patient portal or by using a health care bam of your choosing. [email or web address] is a website that allows you to securely view your medical information including your hospital discharge summary, office visit summaries, medications and follow-up visits. You can also request appointments, renew medications, and request access to your medical information using a health care bam of your choosing, or just ask a question. You can enroll at [email or web address] or register during your next office visit. You have been discharged from [facility], Patient Care Unit: S3. If you have any questions regarding these instructions after you leave, please call us and we will be happy to assist you. [facility] Your Care Team Attending Physician Maldonado Queen MD Discharging Providers Bret GREENWOOD, Maldonado Jameson Reason for Admission leg cramping Your Diagnosis Heart failure ESRD needing dialysis Neuropathy Leg pain Tests Performed Below is a partial list of the tests performed during your hospitalization. You may have had other tests and procedures not included in this list. Please discuss all test results with your provider. Basic Metabolic Panel CBC w/ Differential CK (CREATINE KINASE) CK,TOTAL ONLY CKMB CONFIRMATION/QUANT COMPLETE BLOOD COUNT COMPREHENSIVE METABOLIC PANL?-- Results Pending -- COVID-19 RNA POC ELECTROLYTES FOLIC ACID GLUCOSE POC Hold Blue Top Tube Magnesium Level Phosphorus Level PROBNP?-- Results Pending -- VITAMIN B12 CT Angio Chest US Doppler Ext Lower Venous Bilat XR Chest 2 Views Frontal and Lat ? You will be contacted within 72 hours with your results. Primary Care Provider Krishna Tapia MD Advance Directive Health Care Proxy on File Yes - Health Care Proxy Yes - MOLST No qualifying data available. Discharge Vitals Temperature: 97.3 DegF Height: 173 cm Pulse Rate: 72 bpm Weight: 90.5 kg Respiratory Rate: 18 br/min Body Mass Index:??30.24 kg/m2??Critical Systolic Blood Pressure: 129 mm Hg Body surface area: 2.09 Diastolic Blood Pressure: 72 mm Hg ?? Oxygen Saturation: 99 % ?? Studies Pending All tests and labs ordered during this hospital stay have been completed unless listed below. Please discuss all pending results with your provider listed above in these instructions. ?? Add On Lab Order B Type Natriuretic Peptide (PROBNP) COVID-19 (2019 Novel Coronavirus) PCR Comprehensive Metabolic Panel (COMPREHENSIVE METABOLIC PANL) What to do next Instructions From Your Doctor Discharge Orders Scheduled Follow-Up Appointments Friday 10:30 AM EST ?? With: Santiago Batres Where: [facility] 2022 4:00 PM EST ?? With: Kailey GREENWOOD, Rachel Cross Where: [facility] [address] [place] [address]- Friday 11:15 AM EDT ?? With: Where: [facility] [address] [address]- Friday 9:00 AM EDT ?? With: Vidal GREENWOOD, Vincent Hughes Where: [facility] [address] [address] [address]- You Need to Schedule the Following Appointments Follow Up with??Krishna Tapia MD When??Within 1 week Where: [address] [place] [address] [address] [address]- Discharge Medications RONI GARZA :1970 Visit Date:08/27/2022 Medications: Please continue your medications until treatment is completed or stopped by your provider. Medications not listed below should be discontinued. Discuss any questions related to medications with your provider. What How Much When Instructions Next Dose New Doxycycline (doxycycline monohydrate 100 mg oral capsule) 1 capsule Oral Every 12 hours Duration: 7 Days Pickup at [facility] 3 next dose due 08/29 at 9pm New Gabapentin (gabapentin 300 mg oral capsule) 1 capsule Oral 3 times a day Duration: 30 Days Pickup at [facility] 3 next dose due 1/5 at 9pm Unchanged Atorvastatin (atorvastatin 40 mg oral tablet) 1 tab(s) Oral Daily at Bedtime next dose due 1 at 9pm Unchanged Brimonidine Ophthalmic (brimonidine 0.2% ophthalmic solution) 1 Drops Both eyes Twice a day next dose due 08/29 at 9pm Unchanged Calcitriol (calcitriol 0.5 mcg oral capsule) 3 capsule Oral Every Friday, and Friday Duration: 30 Days next dose due 08/31 at 9am Unchanged Cinacalcet (Sensipar 30 mg oral tablet) 1 tab(s) Oral Daily next dose due 08/30 at 9am Unchanged Clopidogrel (clopidogrel 75 mg oral tablet) 1 tab(s) Oral Daily Duration: 30 Days next dose due 08/30 at 9am Unchanged Cyanocobalamin (cyanocobalamin 1000 mcg oral tablet) 1 tab(s) Oral Daily next dose due 08/30 at 9am Unchanged Durable Medical Equipment (Omni Pod Insulin Pump) Unchanged Epoetin Brett 40,000 unit(s) Subcutaneous Injection Every week resume home schedule Unchanged Fluticasone-Salmeterol (Advair Diskus 250 mcg-50 mcg inhalation powder) 1 puff(s) Inhalation Twice a day next dose due 08/29 at 9pm Unchanged Folic Acid (folic acid 1 mg oral tablet) 1 tab(s) Oral Daily next dose due 08/30 at 9am Unchanged Furosemide (furosemide 80 mg oral tablet) 1 tab(s) Oral Daily next dose due 08/29 at 2pm, then take daily at 8am Unchanged Insulin Lispro (insulin lispro 100 u/ ml subcutaneous injection) 8 - 18 units Subcutaneous Injection 3 times a day before meals << Sliding Scale Comments >> Call if less than 70 100 - 140 ?? 8 units 141 - 180 ?? 9 units 181 - 220 ?? 10 units 221 - 260 ?? 11 units 261 - 300 ?? 12 units 301 - 340 ?? 13 units 341 - 380 ?? 14 units 381 - 400 ?? 15 units 401 - 440 ?? 18 units Call if greater than 400 << Sliding Scale Comments >> ?? 3 times a day before meals on non-dialysis days (M, W, F, Fri) ?? two times a day before lunch and dinner meals on dialysis days (, , Fri) ?? follow sliding scale instructions for dosing of lispro Unchanged Latanoprost Ophthalmic (Xalatan 0.005% solution) 1 Drops Both eyes Daily at Bedtime next dose due 08/29 at 9pm Unchanged Magnesium Oxide (magnesium oxide 400 mg oral tablet) See instructions TAKE 2 TABLETS BY MOUTH EVERY DAY ?? next dose due 08/30 at 9am Unchanged Melatonin (melatonin 3 mg oral tablet) 3 Milligram Oral Daily at Bedtime as needed for as needed for insomnia take as instructed Unchanged Metoprolol (metoprolol 100 mg oral tablet, extended release) 1 tab(s) Oral Daily next dose due 08/29 at 9am Unchanged Mycophenolate Sodium (mycophenolic acid 180 mg oral delayed release tablet) 3 tab(s) Oral Twice a day next dose due 08/29 at 9pm Unchanged Pantoprazole (pantoprazole 40 mg oral delayed release tablet) 40 Milligram Oral Twice a day next dose due 08/29 at 9pm Unchanged Sevelamer (Renvela 800 mg oral tablet) 1 tab(s) Oral 3 times a day with meals next dose due 08/29 at 5pm Unchanged sodium zirconium cyclosilicate (sodium zirconium cyclosilicate 10 g oral powder for reconstitution) 10 gram Oral Friday, Friday and Friday dilute w/ 45 ml water, mix well, and drink immediately ?? next dose due 08/30 at 9am Unchanged Tamsulosin (tamsulosin 0.4 mg oral capsule) 1 capsule Oral Daily at Bedtime next dose due 08/29 at 9pm [facility]: [address], [place] [id number] [phone] ?? What When Comments Stop Taking Albuterol (albuterol 0.083% inhalation solution) Stop Taking Aspirin (Aspirin Low Dose 81 mg oral delayed release tablet) Stop Taking PredniSONE (predniSONE 5 mg oral tablet) Test Results Below is a partial list of the most recent Laboratory test results done prior to this discharge. You may have had other tests and procedures not included in this list. Please discuss all test resultswith your provider. Basic Metabolic Panel (08/28/2022) ???Sodium - 136 mmol/L???Potassium - 5.8 mmol/L???Chloride - 97 mmol/L???Bicarbonate Level - 23 mmol/L???Anion Gap - 16???Glucose Level - 117 mg/dL???BUN - 39 mg/dL???Creatinine-Blood - 7.0 mg/dL???Estimated GFR Creatinine - 9 ML/MIN/1.73 M2???Calcium - 6.8 mg/dL CBC w/ Differential (08/27/2022) ???WBC - 3.9 k/mm3???RBC - 3.13 m/mm3???Hgb - 8.8 Gm/dL???Hct - 30.7 %???MCV - 98.1 femtoliters???MCH - 28.1 pg???MCHC - 28.7 g/dL???Platelet Count - 133 k/mm3???RDW-SD - 67.4 femtoliters???MPV - 9.7femtoliters???Nucleated RBC (Automated) - 0.0 #/100 WBC'S???Abs. NRBC - 0.0 k/mm3???Abs. Neut - 2.8 k/mm3???Abs. Lymph - 0.5 k/mm3???Abs. [place] - 0.6 k/mm3???Abs. Eo - 0.1 k/mm3???Abs. Baso - 0.0 k/mm3???Neut % - 70.8 %???Lymph % - 11.5 %???[place] % - 14.1 %???Eos % - 2.8 %???Baso % - 0.5 %???Imm Gran- 0.3 %???Abs. Imm Gran - 0.0 k/mm3 CK (CREATINE KINASE) (08/27/2022) ???CK, Total - 709 units/L CK,TOTAL ONLY (08/27/2022) ???CK, Total - 709 units/L CKMB CONFIRMATION/QUANT (08/27/2022) ???CK MB Confirmation - Quant - 10.8 ng/mL COMPLETE BLOOD COUNT (08/29/2022) ???WBC - 3.4 k/mm3???RBC - 2.96 m/mm3???Hgb - 8.4 Gm/dL???Hct - 28.2 %???MCV - 95.3 femtoliters???MCH - 28.4 pg???MCHC - 29.8 g/dL???Platelet Count - 159 k/mm3???RDW-SD - 65.3 femtoliters???MPV - 10.2 femtoliters???Nucleated RBC (Automated) - 0.0 #/100 WBC'S???Abs. NRBC - 0.0 k/mm3 COVID-19 RNA POC (08/27/2022) ???COVID-19 POC Result - NEGATIVE ELECTROLYTES (08/29/2022) ???Sodium - 133 mmol/L???Potassium - 4.7 mmol/L???Chloride - 95 mmol/L???Bicarbonate Level - 24 mmol/L???Anion Gap - 14 FOLIC ACID (08/27/2022) ???Folic Acid Level - 26.0 ng/mL GLUCOSE POC (08/28/2022) ???Glucose, POC - 159 mg/dL Hold Blue Top Tube (08/27/2022) ???Hold Blue Top - SPECIMEN DISCARDED AFTER 4 HOURS. Magnesium Level (08/28/2022) ???Magnesium - 2.2 mg/dL Phosphorus Level (08/28/2022) ???Phosphorus - 3.8 mg/dL VITAMIN B12 (08/27/2022) ???Vitamin B12 Level - 3683 pg/mL Allergies (NKA means No Known Allergies) Ancef??( trouble breathing ) Lyrica??( mind races ) fentanyl??( trouble breathing ) Problems Active Problems??(13) admit- increased creatinine- ? dehydration?? CAD (coronary artery disease)?? Chronic kidney disease (CKD)?? Chronic systolic congestive heart failure?? donor transplant?? Diabetes mellitus type 1?? esrd r/t diabetes?? Foot pain?? Hypertension?? Kidney Biopsy-Borderline ACR, C4d neg?? Neuropathy?? orchiopexy r/t undescended testicle?? Transplanted kidney present?? Education Materials Below is the list of Educational Leaflet Providered with your Discharge Instructions. Valuables and Belongings I fully understand and agree that [facility] accepts no responsibility for all my personal property including clothing, toilet articles, radios, jewelry, dentures, hearing aids, rings, money, or any other property that is in my possession or is brought to me after admission. I understand certain valuables may be placed in a hospital safe for a short period of time. I understand that the hospital is not liable for loss or damage due to accident, fire, or other natural occurrence while said property is in the safe. I accept full responsibility for any personal property that I keep with me, and will not hold the hospital responsible in case of loss or disappearance. I acknowledge that i have been encouraged to send valuables and belongings home. ?? No Valuables/Belongings: No valuables/belongings present Review of Valuable and Belonging List: With patient Date for Pt to Sign Valuables/Belongings: 08/29/22 12:02:00 ?? Other Discharge Information ? Case Management Discharge Plan?? Discharge Plan?? Discharge Level of Care at Discharge: Home/[facility] Discharge Transportation [facility] [address] [facility][phone] Mode of Transportation Arranged: Chair Van Discharge Arranged Transport Date/Time: 08/29/22 13:30:00 ?? Pulmonary Rehab Status?? Pulmonary Rehab Discharge Status?? Respiratory Rate: 18 br/min ? Common Emergency Awareness Tips IS IT A STROKE? Act FAST and Check for these signs: FACE Does the face look uneven? ARM Does one arm drift down? SPEECH Does their speech sound strange? TIME Call at any sign of stroke ?? Heart Attack Signs Chest discomfort: Most heart attacks involve discomfort in the center of the chest and lasts more than a few minutes, or goes away and comes back. It can feel like uncomfortable pressure, squeezing, fullness or pain. Discomfort in upper body: Symptoms can include pain or discomfort in one or both arms, back, neck, jaw or stomach. Shortness of breath: With or without discomfort. Other signs: Breaking out in a cold sweat, nausea, or lightheaded. Remember, MINUTES DO MATTER. If you experience any of these heart attack warning signs, call to get immediate medical attention! ?? Smoking can increase your chances of developing chronic health problems and can cause harmful effects to other family members in your house. If you smoke, you are strongly encouraged to quit. Please call [facility] Textic Link at [phone] or [phone] Solo ([phone]) or log in to [email or web address] for referrals to smoking cessation programs. ?? The National Suicide Prevention Hotline is available 17/03 if you or someone you know needs to find a reason to keep living. By calling 5-406-735-Proxeon (5291) you'll be connected to a skilled, trained counselor at a crisis center in your area. INPATIENT DISCHARGE INSTRUCTIONS SIGNATURE RONI VEGA Location:[facility] Registration Date and Time:08/27/2022 13:11 EST Primary Care Physician: Krishna Tapia MD, I RONI GARZA, have received the above patient education materials/instructions and have verbalized understanding. If ambulance or transport services are being used I further acknowledge being given a choice of service. ?? If you need to contact me, please call me at this number: . Patient/Master Hearth Technician Name: Patient/Master Hearth Technician Signature: Relationship to Patient: Witness Name/Signature: Date: * Elise Winn RN: PERFORM Event Display: Patient Education Leaflets Authored Date: [id number] Doxycycline Oral Capsule ?? [address] Doxycycline Oral Capsule Brands: Adoxa, Mondoxyne, Monodox, Morgidox, Okebo, Vibramycin Uses For treating bacterial infection. ?? Instructions Take the medicine with 250 mL (1 cup) of water. Take on empty stomach - 1 hour before or 2 hours after eating. Sit or stand upright for 30 minutes after taking the medicine. Do not lie down. Keep the medicine at room temperature. Avoid heat and direct light. Do not take any antacid or vitamins with magnesium, calcium, aluminum, or iron for 2 hours before and 2 hours after taking this medicine. This medicine may cause you to become more sensitive to the sun. Use sunscreen or wear protective clothing when you are exposed to the sun. If you forget to take a dose on time, take it as soon as you remember. If it is almost time for thenext dose, do not take the missed dose. Return to your normal dosing schedule. Do not take 2 doses of this medicine at one time. Drug interactions can change how medicines work or increase risk for side effects. Tell your healthcare providers about all medicines taken. Include prescription and ryeo-dtj-zjvmahv medicines, vitamins, and herbal medicines. Speak with your doctor or pharmacist before starting or stopping any medicine. Keep using this medicine for the full number of days that it is prescribed. Do not stop the medicine even if you start to feel better. This medicine can cause permanent change in teeth color in children. ?? Cautions Tell your doctor and pharmacist if you ever had an allergic reaction to a medicine. Do not use the medication any more than instructed. Contact your doctor if you notice a change in the amount or darkening of your urine. Please tell your doctor if you have moderate to severe diarrhea while on this medicine. Do not treat the diarrhea with czid-ssx-faruqqg diarrhea medicine. Tell the doctor or pharmacist if you are , planning to be , or . Do not share this medicine with anyone who has not been prescribed this medicine. ?? Side Effects The following is a list of some common side effects from this medicine. Please speak with your doctor about what you should do if you experience these or other side effects. ??? diarrhea ??? nausea and vomiting ??? stomach upset or abdominal pain ??? increased risk of sunburn ??? yeast infection of mouth ??? vaginal itching or yeast infection Call your doctor or get medical help right away if you notice any of these more serious side effects: ??? swelling in the neck or throat ??? difficulty swallowing ??? blurring or changes of vision A few people may have an allergic reaction to this medicine. Symptoms can include difficulty breathing, skin rash, itching, swelling, or severe dizziness. If you notice any of these symptoms, seek medical help quickly. ?? Extra Please speak with your doctor, nurse, or pharmacist if you have any questions about this medicine. ?? [email or web address] IMPORTANT NOTE: This document tells you briefly how to take your medicine, but it does not tell youall there is to know about it. Your doctor or pharmacist may give you other documents about your medicine. Please talk to them if you have any questions. Always follow their advice. There is a more complete description of this medicine available in Ethiopian. Scan this code on your smartphone or tablet or use the web address below. You can also ask your pharmacist for a printout. If you have any questions, please ask your pharmacist. The display and use of this drug information is subject to Terms of Use. Copyright(c) 2021 [employer]. ?? The [employer] All rights reserved. This information is not intended as a substitute for professional medical care. Always follow your healthcare professional's instructions. ?? * Pa JESSICA, Elise Díaz: PERFORM Event Display: Patient Education Leaflets Authored Date: [id number] Gabapentin Oral Capsule ?? [address] Gabapentin Oral Capsule Brands: Neurontin Uses This medicine is used for the following purposes: ??? menopausal symptoms ??? pain ??? restless legsyndrome ??? seizures ??? alcohol dependence ??? tremors ?? Instructions Swallow the medicine without crushing or chewing it. This medicine may be taken with or without food. It is very important that you take the medicine at about the same time every day. It will work bestif you do this. Keep the medicine at room temperature. Avoid heat and direct light. Do not take any antacid or vitamins with magnesium, calcium, aluminum, or iron for 2 hours before and 2 hours after taking this medicine. It is important that you keep taking each dose of this medicine on time even if you are feeling well. If you forget to take a dose on time, take it as soon as you remember. If it is almost time for thenext dose, do not take the missed dose. Return to your normal dosing schedule. Do not take 2 doses of this medicine at one time. Tell your doctor and pharmacist about all your medicines. Include prescription and llng-jqi-vohiqtjnmwgrjwrc, vitamins, and herbal medicines. Do not suddenly stop taking this medicine. Check with your doctor before stopping. ?? Cautions Tell your doctor and pharmacist if you ever had an allergic reaction to a medicine. Do not use the medication any more than instructed. If possible, avoid using with marijuana or other medicines that can cause dizziness or drowsiness. These include allergy/cold products, muscle relaxers, sleep aids, and pain relievers. Your ability to stay alert or to react quickly may be impaired by this medicine. Do not drive or operate machinery until you know how this medicine will affect you. Do not drink beverages with alcohol while on this medicine. Family should check on the patient often. Call the doctor if patient becomes more depressed, has thoughts of suicide, or shows changes in behavior. Call the doctor if there are any signs of confusion or unusual changes in behavior. Tell the doctor or pharmacist if you are , planning to be , or . Do not start or stop any other medicines without first speaking to your doctor or pharmacist. This medicine should be used with caution in patients with breathing difficulties. Call your doctor right away if you notice slow or shallow breathing. Do not share this medicine with anyone who has not been prescribed this medicine. Some patients have serious side effects from this medicine. Ask your pharmacist to show you the information from the Food and Drug Administration (FDA) and discuss it with you. ?? Side Effects The following is a list of some common side effects from this medicine. Please speak with your doctor about what you should do if you experience these or other side effects. ??? dizziness or drowsiness ??? lack of energy and tiredness Call your doctor or get medical help right away if you notice any of these more serious side effects: ??? shallow, irregular breathing ??? fever ??? swelling in the neck or throat A few people may have an allergic reaction to this medicine. Symptoms can include difficulty breathing, skin rash, itching, swelling, or severe dizziness. If you notice any of these symptoms, seek medical help quickly. ?? Extra Please speak with your doctor, nurse, or pharmacist if you have any questions about this medicine. ?? [email or web address] IMPORTANT NOTE: This document tells you briefly how to take your medicine, but it does not tell youall there is to know about it. Your doctor or pharmacist may give you other documents about your medicine. Please talk to them if you have any questions. Always follow their advice. There is a more complete description of this medicine available in Ethiopian. Scan this code on your smartphone or tablet or use the web address below. You can also ask your pharmacist for a printout. If you have any questions, please ask your pharmacist. The display and use of this drug information is subject to Terms of Use. Copyright(c) 2021 [employer]. ?? The [employer] All rights reserved. This information is not intended as a substitute for professional medical care. Always follow your healthcare professional's instructions. ?? * Pa JESSICA, Elise Díaz: PERFORM Event Display: Patient Education Leaflets Authored Date: [id number] Diabetes and Kidney Disease ?? 81272 Diabetes and Kidney Disease Diabetes makes your body less able to use the foods you eat as sources of energy. As a result, sugar that the body uses as fuel (glucose) builds up in the blood. Over time, having too much glucose inyour blood can harm blood vessels and kidneys. By controlling diabetes, you can stay at a healthy blood glucose level. And you can slow or prevent kidney damage. Americans, , and Hispanics and Latinos have diabetes, chronic kidney disease, and kidney failure at rates higher than whites. People with diabetes should have their kidney function measured at least once a year with blood and urine tests. Having diabetes is the most common reason for needing dialysis or a kidney transplant.?Note Visit your healthcare provider as scheduled. ?? Follow your diet To get the most energy from the foods you eat and feel your best, you may have to follow a special diet. Work closely with your healthcare team. They can help you make a meal plan that's right for you. You may also need to: ??? Eat less protein. ??? Drink less fluid. ??? Limit salt (sodium) intake. ??? Eat foods that are low in phosphorus and potassium. ??? Don't take or lower the amount of certain medicines that affector are processed by the kidneys. ?? Take insulin and diabetes medicine as directed Insulin is a hormone that helps your body use glucose. You may give yourself insulin to increase your body???s supply. Or you may take other medicines to help your body release more insulin or use insulin better. The stage of your kidney disease can reduce the amount of insulin your body needs. So your insulin injections or other medicine may be adjusted. Talk with your provider if your blood glucose level is often too low. Closely watch your blood glucose with a meter as directed by your provider. Threetypes of blood pressure medicines help people with both diabetes and high blood pressure reduce their risk of getting kidney disease. And reduce the risk of worsening existing kidney disease. These medicines are: ??? Angiotensin-converting enzyme (TIFFANY) inhibitors ??? Angiotensin receptor blockers (ARBs) ??? Sodium-glucose co-transporter 2 (SGLT2) inhibitors Studies show these medicines work even in people with diabetes who don't have high blood pressure. Your provider will monitor how much protein your kidneys release into the urine as a sign of how diabetes is affecting your kidneys. One or two times a year, you'll also need a blood test to see how your kidneys are processing other substances. Controlling these other risk factors for??kidney disease and diabetes will also help slow kidney disease progression: ??? Quitting smoking as soon as possible, if you smoke ??? Controlling high blood pressure ??? Limiting alcohol ??? Staying at a healthy body weight ??? Getting regular physical activity ?? Stay active Exercise helps the body use glucose. For best results: ??? Talk with your provider before starting a fitness program. ??? Ask your provider what activities you should do, how often you should exercise, and for how long. ??? Eat 1 to 2 hours before you exercise. Check your blood sugar right before you exercise to see if it's safe to exercise at that time. ??? Keep a pack of diabetes supplies and snacks close at hand. These snacks can help prevent low blood sugar (hypoglycemia). ??? Always wear amedic alert necklace, bracelet, or information tag, which states that you have diabetes and/or other health concerns. ?? Last Reviewed Date: 2021 ?? 7897-8805 The [employer] All rights reserved. This information is not intended as a substitute for professional medical care. Always follow your healthcare professional's instructions. ?? * BHSPowerscripb , ROSMERY S: TRANSCRIBE Chad GREENWOOD, Kennedy S: VERIFY Event Display: Result: Authored Date: [id number] Chest 2 Views Frontal and Lat Hx of Present Illness: Pt reports alternating B L calf pain that started 1 week ago.; Reason: Other:; Chest Pain; Clinical Question(s): Other: / Other: COMPARISON: 06/22/2022 FINDINGS: LINES AND TUBES: None. LUNGS AND PLEURA: Clear lungs. Normal pulmonary vascularity. No pleural effusion. No pneumothorax. HEART, MEDIASTINUM AND MARICARMEN: Heart is normal in size. Normal mediastinal and hilar contour. BONES AND SOFT TISSUES: No acute abnormality. Left axillary stents. IMPRESSION: No evidence of acute abnormality. WSN: [id number] Ordering Physician: Shari Meyer Dictated By: Kennedy Bonilla MD Dictated Date/Time: 08/27/22 7:15 am Reviewed By: Kennedy Bonilla MD Signed By: Kennedy Bonilla MD Signed Date/Time: 08/27/22 7:15 am Transcribed By: AMY Transcribed Date/Time: 08/27/22 7:14 am US.doppler Lower extremity vein - bilateral * BHSPowerscribe , CIS S: TRANSCRIBE Ector Riley MD: VERIFY Event Display: Result: Authored Date: [id number] US Doppler Ext Lower Venous Bilat INDICATION: Bilateral calf pain for one week. Rule out venous thrombosis P COMPARISON: None IMAGING TECHNIQUE: Ultrasound of the veins from the groin through the calf was performed using grayscale, color, and spectral Doppler ultrasound assessing for complete compressibility and normal flowcharacteristics. FINDINGS: Technically difficult because of arterial calcification causing some shadowing and obscuration of the veins. RIGHT LOWER EXTREMITY: Common femoral vein: Patent. No thrombosis. Femoral vein: Patent. No thrombosis. Popliteal vein: Patent. No thrombosis. Gastrocnemius veins: The visualized portions are patent without evidence of thrombosis. Peroneal veins: Poorly visualized. Patent anterior branch. Possible short segment thrombus of the posterior branch. Posterior tibial veins: Poorly visualized but no evidence of venous thrombosis. LEFT LOWER EXTREMITY: Common femoral vein: Patent. No thrombosis. Femoral vein: Patent. No thrombosis. Popliteal vein: Patent. No thrombosis. Gastrocnemius veins: The visualized portions are patent without evidence of thrombosis. Peroneal veins: Poorly visualized. Patent anterior branch. Possible short segment thrombus of the posterior branch. Posterior tibial veins: The visualized portions are patent without evidence of thrombosis. OTHER FINDINGS: Triphasic waveform of both common femoral veins likely reflects heart failure. IMPRESSION: Technically difficult study. There is no evidence of venous thrombosis above the knee. The calf veins are poorly visualized. Both peroneal veins have a similar appearance with patent anterior branches but poorly visualized posterior branches with absent flow in the short segment on both sides. Given the symmetry, it seems unlikely that this represents venous thrombosis. WSN: [id number] Ordering Physician: Jaida Stone Dictated By: Ector Riley MD Dictated Date/Time: 08/27/22 1:16 pm Reviewed By: Ector Riley MD Signed By: Ector Riley MD Signed Date/Time: 08/27/22 1:16 pm Transcribed By: AMY Transcribed Date/Time: 08/27/22 1:08 pm CTA Chest vessels W contrast IV * BHSPowerscribe , CIS S: TRANSCRIBE Kamilah GREENWOOD, Teresita: VERIFY Event Display: Result: Authored Date: [id number] EXAMINATION: CT Angio Chest INDICATION: Reason: Other: pe; Clinical Question(s): Pulmonary Embolism; Order Comment: TECHNIQUE: Spiral CTA of the chest was performed after rapid IV contrast administration without cardiac gating, triggered by an LUCIANA on the main pulmonary artery. Images are formatted in multiple planes using 2-D multiplanar and 3-D maximum intensity projection. 50 cc of Omnipaque 300 was administered intravenously. Weight-based protocol using automatic tube modulation was used to optimize exposure parameters. CTDIvol Body: 6.14 mGy, DLP Body: 336 mGy*cm. COMPARISONS: 01/17/2022 ANGIOGRAPHIC FINDINGS: Exam is diagnostic to the level of the proximal segmental pulmonary arteries. No filling defect to indicate acute pulmonary thromboembolism. There is no evidence of right heart strain. The thoracic aorta is nonaneurysmal. No acute aortic dissection. NON-ANGIOGRAPHIC FINDINGS: The heart size is enlarged. There is coronary artery atherosclerosis. No significant pericardial fluid. Evaluation of the mediastinum shows no adenopathy. There is decrease in size of previously enlargedright hilar lymph node, now up to 7 to 8 mm, example series 301 image 62. The thyroid gland is unremarkable. There is a stent present in the axillary area, on the left, as before. No acute abnormality of the chest wall with gynecomastia, also as before. Mild stranding seen at the left upper lateral chest wall at series 301 image 67 with stranding continuing more caudally (to the level of the upper abdomen) with mild anasarca. The proximal tracheobronchial tree is patent without endobronchial mass or obstruction. There are diffuse tree in bud nodules present bilaterally, right slightly greater than left involving both upper lobes but also slightly involving the middle lobes and lower lungs. Groundglass nodules are also pr esent. No lobar consolidation. No area of cavitation. There is no pleural effusion. Previously seen lower lung interlobular septal thickening has resolved. Upper abdomen: Limited images of the upper most abdomen show mild distal esophageal wall thickening with small hiatal hernia. Vascular atherosclerosis. There is atrophy of the kidneys. There is partially seen colonwith contrast. Visualized osseous structures: Review of the imaged osseous structures shows no acute or destructive osseous ophthalmology. Unchanged appearance of calcification exophytically from the anterior right third rib. IMPRESSION: No evidence of pulmonary embolism. Multifocal tree-in-bud nodules and groundglass nodules throughout both lungs, concerning for activepulmonary infection. Asymmetric edema at the left chest wall and left abdominal wall. This can relate to patient being in dependent position on this side. Suggest direct clinical examination to exclude skin changes (a portion of the soft tissues are outside the field of view). WSN: [id number] Ordering Physician: Maldonado Queen Dictated By: Teresita Triana MD Dictated Date/Time: 08/28/22 4:57 pm Reviewed By: Teresita Triana MD Signed By: Teresita Triana MD Signed Date/Time: 08/28/22 4:57 pm Transcribed By: AMY Transcribed Date/Time: 08/28/22 4:45 pm Patient Care team information Care Team Personnel Name: Wild Santos RN Position: S RN Member Role: Primary Care Nurse Name: Lucy Garcia RN Position: S RN Member Role: Primary Care Nurse Name: Julianna Mazariegos RN Position: S RN Member Role: Primary Care Nurse Name: Simin Rosario RN Position: S RN Member Role: Primary Care Nurse Name: Krishna Tapia MD Position: [facility] Outreach Member Role: PCP Address: Address: [address] [place] [address] [place] [address]- [place] Name: Miguelangel Cancino MD Position: [facility] Renal MD Member Role: Lifetime Consulting Physician Address: Address: [address] [place] [address], [address] [facility] [place] [address]- [place] Name: Lavonne Mckenzie RN Position: S RN [...] Care Nurse Name: Barak Shaw DO Position: [facility] Renal MD Member Role: Lifetime Consulting Physician Address: Address: [address] [place] [address] [address] [facility] [place] [address]- [place] Name: Tayla Fine Position: S Outreach Member Role: Lifetime Consulting Physician Name: Niki Montes RN Position: [facility] RN Member Role: Primary Care Nurse Name: Stella Calhoun RN Position: [facility] RN Member Role: Primary Care Nurse Name: Kinjal Macias RN Position: [facility] RN Member Role: Primary Care Nurse Name: Estephania Pizano RN Position: [facility] ED RN W/OE and Tasks Member Role: Primary Care Nurse Name: Zita Barrow RN Position: [facility] RN Member Role: Primary Care Nurse Name: Alexis Brooke MD Position: [facility] Renal MD Member Role: Lifetime Consulting Physician Address: Address: [address] [place] [address] [address] [facility] [place] [address]- [place] Name: Amanda Vides RN Position: [facility] RN Member Role: Primary Care Nurse Name: Chantelle Villareal RN Position: S RN Member Role: Primary Care Nurse Name: Brisa Michaels RN Position: S RN Member Role: Primary Care Nurse Name: London Chau RN Position: [facility] RN Member Role: Primary Care Nurse Name: Ana Schafer RN Position: [facility] RN Member Role: Primary Care Nurse Name: Liz Aguilera RN Position: [facility] Outreach Member Role: Lifetime Consulting Physician Name: Sudhir Chan Position: [facility] Outreach Member Role: Lifetime Consulting Physician Name: Monique Guzmán RN Position: [facility] RN Member Role: Primary Care Nurse Name: Roselia Crain RN Position: [facility] RN Member Role: Primary Care Nurse Name: Jorge Crews RN Position: [facility] RN Member Role: Primary Care Nurse Address: Address: [address] [place] [address]- Name: Marcelo Joy MD Position: [facility] Renal MD Member Role: Lifetime Consulting Physician Address: Address: [address] [place] [address] [facility] [place] [address]- Name: Nell Copeland RN Position: [facility] RN Member Role: Primary Care Nurse Name: Odalis Roy RN Position: [facility] SN RN Member Role: Primary Care Nurse Name: Merline Carlson RN Position: [facility] RN Member Role: Primary Care Nurse Name: Nupur Black RN Position: [facility] RN Member Role: Primary Care Nurse Name: Serena Allen RN Position: [facility] Onco RN Member Role: Primary Care Nurse Name: Maura Tsang RN Position: [facility] RN Member Role: Primary Care Nurse Name: Lupe RAMAN Attending Position: [facility] ED Medicine MD Name: Jaida Ferguson Position: [facility] Associate Professional Member Role: ED Physician Fish Technologist Address: Address: [address] [place] [address] [place] [address]- Name: Reyna Sheridan Position: [facility] ED TA [facility] Member Role: Board Turner Care Team Related Persons Name: KAYCE [place] Address: [address] [place] [address] Name: SANTIAGO NAZARIO Address: [address] [place] [address]
--- OUTSIDE RECORDS SUMMARY | 2023-02-07 12:12 | XMS_ITS | Continuity of Care Document ---
Author Name Unknown Organization [facility] Address [address] [place] [address]- Care Team Providers Care Enterprise Architect Name Role Phone Krishna Tapia MD Primary Care Physician [phone] Encounter [facility] Date(s): 08/21/22 - 09/29/[address] [address] Attending Physician: Krishna Tapia MD [...] 0 Refills, Maintenance, 06/22/22 6:51:00 EDT, Capsule, [facility], Partial fill upon patient request [...] 08/29/22 8:44:00 EST, Route to Pharmacy Electronically, [facility], Partial fill upon patient request [...] EVERY DAY, # 180 tablet, 1 Refills, [facility], 173,cm, 01/24/22 16:16:00 EDT, Height, 91.1, kg, [...] 05/23/22 14:38:00 EDT, Route to Pharmacy Electronically, [facility], Partial fill upon patient request if the [...] 0 Refills, Maintenance, 06/22/22 6:51:00 EDT, Tablet, [facility], Partial fill upon patient request [...] MRI Safety Implantable Status Assigning Authority Unknown [id number] Unknown Unknown 09/26/25 Unknown Unknown Active Unknown Patient Care team information Care Team Personnel Name: Wild Santos RN Position: [facility] RN Member Role: Primary Care Nurse Name: Lucy Garcia RN Position: S RN Member Role: Primary Care Nurse Name: Julianna Mazariegos RN Position: S RN Member Role: Primary Care Nurse Name: Simin Rosario RN Position: S RN Member Role: Primary Care Nurse Name: Janie Kunz RN Position: S RN Member Role: Primary Care Nurse Name: Krishna Tapia MD Position: [facility] Outreach Member Role: PCP Address: Address: [address] [place] [address] [place] [address]- Name: Miguelangel Cancino MD Position: [facility] Renal MD Member Role: Lifetime Consulting Physician Address: Address: [address] [place] [address], [address] [facility] [place] [address]- Name: Lavonne Mckenzie RN Position: [facility] RN Member Role: Primary Care Nurse [...] Member Role: Primary Care Nurse Name: Barak Shwa DO Position: [facility] Renal MD Member Role: Lifetime Consulting Physician Address: Address: [address] [place] [address] [address] [facility] [place] [address]- Name: Tayla Fine Position: S Outreach Member Role: Lifetime Consulting Physician Name: Niki Montes RN Position: [facility] RN Member Role: Primary Care Nurse Name: Stella Calhoun RN Position: [facility] RN Member Role: Primary Care Nurse Name: Wes Lezama Position: [facility] Associate Professional Member Role: Lifetime Consulting Provider Address: Address: [address] [place] [address]- Name: Kinjal Macias RN Position: [facility] RN Member Role: Primary Care Nurse Name: Estephania Pizano RN Position: [facility] ED RN W/OE and Tasks Member Role: Primary Care Nurse Name: Zita Barrow RN Position: [facility] RN Member Role: Primary Care Nurse Name: Alexis Brooke MD Position: [facility] Renal MD Member Role: Lifetime Consulting Physician Address: Address: [address] [place] [address] [address] [facility] [place] [address]- Name: Amanda Vides RN Position: [facility] RN Member Role: Primary Care Nurse Name: Chantelle Villareal RN Position: [facility] RN Member Role: Primary Care Nurse Name: Brisa Michaels RN Position: [facility] RN Member Role: Primary Care Nurse Name: London Chau RN Position: [facility] RN Member Role: Primary Care Nurse Name: Ana Schafer RN Position: [facility] RN Member Role: Primary Care Nurse Name: Liz Aguilera RN Position: [facility] Outreach Member Role: Lifetime Consulting Physician Name: Sudhir Chan Position: [facility] Outreach Member Role: Lifetime Consulting Physician Name: Monique Guzmán RN Position: [facility] RN Member Role: Primary Care Nurse Name: Roselia Crain RN Position: [facility] RN Member Role: Primary Care Nurse Name: Jorge Crews RN Position: [facility] RN Member Role: Primary Care Nurse Address: Address: [address] [place] [address]- Name: Marcelo Joy MD Position: [facility] Renal MD Member Role: Lifetime Consulting Physician Address: Address: [address] [place] [address] [facility] [place] [address]- Name: Nell Copeland RN Position: [facility] RN Member Role: Primary Care Nurse Name: Star Hagen RN Position: [facility] RN Member Role: Primary Care Nurse Name: Odalis Roy RN Position: [facility] SN RN Member Role: Primary Care Nurse Name: Merline Carlson RN Position: [facility] RN Member Role: Primary Care Nurse Name: Nupur Black RN Position: [facility] RN Member Role: Primary Care Nurse Name: Serena Allen RN Position: [facility] Onco RN Member Role: Primary Care Nurse Name: Maura Tsang RN Position: [facility] RN Member Role: Primary Care Nurse Care Team Related Persons Name: KAYCE PARK Address: [address] [place] [address] Name: SANTIAGO NAZARIO Address: home [address] [place] [address]
--- OUTSIDE RECORDS SUMMARY | 2023-02-07 12:13 | XMS_ITS | Continuity of Care Document ---
Author Name Unknown Organization [facility] Address [address] [place] [address]- Care Team Providers Care Video Game Technician Name Role Phone Krishna Tapia MD Primary Care Physician [phone] Encounter [facility] Date(s): 08/12/22 - 09/15/[address] [address] Attending Physician: Jil Golden MD Admitting Physician: Jil Golden MD Referring Physician: Jil Golden MD Allergies, Adverse Reactions, Alerts Substance Reaction [...] 0 Refills, Maintenance, 06/22/22 6:51:00 EDT, Capsule, [facility], Partial fill upon patient [...] 08/29/22 8:44:00 EST, Route to Pharmacy Electronically, [facility], Partial fill upon patient [...] EVERY DAY, # 180 tablet, 1 Refills, [facility], 173,cm, 01/24/22 16:16:00 EDT, Height, 91.1, kg, [...] 0 Refills, Maintenance, 06/22/22 6:51:00 EDT, Tablet, [facility], Partial fill upon patient [...] MRI Safety Implantable Status Assigning Authority Unknown [id number] Unknown Unknown 09/26/25 Unknown Unknown Active Unknown [...] Care Nurse Name: Krishna Tapia MD Position: [facility] Outreach Member Role: PCP Address: Address: [address] [place] [address] [place] [address]- Name: Miguelangel Cancino MD Position: [facility] Renal MD Member Role: Lifetime Consulting Physician Address: Address: [address] [place] [address], [address] [facility] [place] [address]- Name: Lavonne Mckenzie RN Position: S RN [...] Care Nurse Name: Barak Shaw DO Position: [facility] Renal MD Member Role: Lifetime Consulting Physician Address: Address: [address] [place] [address] [address] [facility] [place] [address]- Name: Tayla Fine Position: [facility] Outreach Member Role: Lifetime Consulting Physician Name: Niik Montes RN Position: [facility] RN Member Role: Primary Care Nurse Name: Stella Calhoun RN Position: [facility] RN Member Role: Primary Care Nurse Name: Wes Lezama Position: [facility] Associate Professional Member Role: Lifetime Consulting Provider Address: Address: [address] [place] [address]- Name: Kinjal Macias RN Position: [facility] RN Member Role: Primary Care Nurse Name: Estephania Pizano RN Position: [facility] ED RN W/OE and Tasks Member Role: Primary Care Nurse Name: Zita Barrow RN Position: [facility] RN Member Role: Primary Care Nurse Name: Alexis Brooke MD Position: [facility] Renal MD Member Role: Lifetime Consulting Physician Address: Address: [address] [place] [address] [address] [facility] [place] [address]- Name: Amanda Vides RN Position: [facility] RN Member Role: Primary Care Nurse Name: Chantelle Villareal RN Position: [facility] RN Member Role: Primary Care Nurse Name: Brisa Michaels RN Position: [facility] RN Member Role: Primary Care Nurse Name: London Chau RN Position: [facility] RN Member Role: Primary Care Nurse Name: Ana Schafer RN Position: [facility] RN Member Role: Primary Care Nurse Name: Liz Aguilera RN Position: [facility] Outreach Member Role: Lifetime Consulting Physician Name: Sudhir Chan Position: [facility] Outreach Member Role: Lifetime Consulting Physician Name: Monique Guzmán RN Position: [facility] RN Member Role: Primary Care Nurse Name: Roselia Crain RN Position: [facility] RN Member Role: Primary Care Nurse Name: Jorge Crews RN Position: [facility] RN Member Role: Primary Care Nurse Address: Address: [address] [place] [address]- Name: Marcelo Joy MD Position: [facility] Renal MD Member Role: Lifetime Consulting Physician Address: Address: [address] [place] [address] [facility] [place] [address]- Name: Nell Copeland RN Position: [facility] RN Member Role: Primary Care Nurse Name: Odalis Roy RN Position: [facility] SN RN Member Role: Primary Care Nurse Name: Merline Carlson RN Position: [facility] RN Member Role: Primary Care Nurse Name: Nupur Black RN Position: [facility] RN Member Role: Primary Care Nurse Name: Serena Allen RN Position: [facility] Onco RN Member Role: Primary Care Nurse Name: Maura Tsang RN Position: [facility] RN Member Role: Primary Care Nurse Care Team Related Persons Name: RAQUELDARLENE KAYCE Address: [address] [place] [address] Name: SANTIAGO NAZARIO Address: [address] [place] [address]
--- OUTSIDE RECORDS SUMMARY | 2023-02-07 12:13 | XMS_ITS | Continuity of Care Document ---
Author Name Unknown Organization [facility] Address [address] [place] [address]- Care Team Providers Care Wire Splicer Name Role Phone Krishna Tapia MD Primary Care Physician Encounter [facility] Date(s): 11/25/22 - 12/25/22 [facility] [address] [place], [place] [address] Attending Physician: Kyler Ny Admitting [...] Given pneumococcal 23-valent vaccine 09/25/07 Given Medications acetaminophen 325 mg oral tablet 650 mg, 2, tablet, By Mouth, Every 4 hours, PRN, # 50 tablet, Refills 0, Tot. Refills 0, Acute 12/30/22 7:23:00 EDT, as needed for pain, 12/18/22 7:22:00 EDT, Route to Pharmacy Electronically, [facility], Partial fill upon patient request if... Start Date: 12/18/22 Stop Date: 12/30/22 Status: Ordered Advair Diskus 250 mcg-50 mcg inhalation powder [...] 0 Refills, Maintenance, 06/22/22 6:51:00 EDT, Capsule, [facility] 3, Partial [...] 8:44:00 EST, Route to Pharmacy Electronically, [facility] 3, Partial [...] EVERY DAY, # 180 tablet, 1 Refills, [facility] STORE 56576, 173,cm, 01/24/22 16:16:00 EDT, Height, 91.1, kg, [...] 11/07/22 16:29:00 EDT, Route to Pharmacy Electronically, [facility], Partial fill upon patient request if [...] MRI Safety Implantable Status Assigning Authority Unknown [id number] Unknown Unknown 09/26/25 Unknown Unknown Active Unknown Patient Care team information Care Team Personnel Name: Wild Santos RN Position: [facility] RN Member Role: Primary Care Nurse Name: Lucy Garcia RN Position: [facility] RN Member Role: Primary Care Nurse Name: Julianna Mazariegos RN Position: [facility] RN Member Role: Primary Care Nurse Name: Simin Rosario RN Position: [facility] RN Member Role: Primary Care Nurse Name: Kendal Garcia RN Position: [facility] RN Member Role: Primary Care Nurse Name: Janie Kunz RN Position: [facility] RN Member Role: Primary Care Nurse Name: Krishna Tapia MD Position: [facility] Outreach Member Role: PCP Address: Address: [address] [place] [address] Krishna Tapia MD [place], [place] [address] Name: Miguelangel Cancino MD Position: [facility] Renal MD Member Role: Lifetime Consulting Physician Address: Address: [address] [place] [address], [address] [facility] [place] [address]- Name: Lavonne Mckenzie RN Position: [facility] RN Member Role: Primary Care Nurse Name: Filomena Austin RN Position: [facility] RN Member Role: Primary Care Nurse Name: Faby Guido RN Position: [facility] RN Member Role: Primary Care Nurse Name: Sabrina Damon RN Position: S RN Member Role: Primary Care Nurse Name: Maddy Skelton Position: [facility] RN Member Role: Primary Care Nurse Name: Elise Yao LPN Position: [facility] RN Member Role: Primary Care Nurse Name: Barak Shaw DO Position: [facility] Renal MD Member Role: Lifetime Consulting Physician Address: Address: [address] [facility] [address] [facility] [place] [address]- Name: Tayla Fine Position: S Outreach Member Role: Lifetime Consulting Physician Name: Niki Montes RN Position: [facility] RN Member Role: Primary Care Nurse Name: Stella Calhoun RN Position: [facility] RN Member Role: Primary Care Nurse Name: Wes Lezama Position: [facility] Associate Professional Member Role: Lifetime Consulting Provider Address: Address: [address] [place] [address]- Name: Kinjal Macias RN Position: [facility] RN Member Role: Primary Care Nurse Name: Estephania Pizano RN Position: [facility] ED RN W/OE and Tasks Member Role: Primary Care Nurse Name: Alexis Brooke MD Position: [facility] Renal MD Member Role: Lifetime Consulting Physician Address: Address: [address] [place] [address] [address] [facility] [place] [address]- Name: Amanda Vides RN Position: [facility] RN Member Role: Primary Care Nurse Name: Chantelle Villareal RN Position: [facility] RN Member Role: Primary Care Nurse Name: Brisa Michaels RN Position: [facility] RN Member Role: Primary Care Nurse Name: London Chau RN Position: [facility] RN Member Role: Primary Care Nurse Name: Ana Schafer RN Position: [facility] RN Member Role: Primary Care Nurse Name: Liz Aguilera RN Position: [facility] Outreach Member Role: Lifetime Consulting Physician Name: Sudhir Chan Position: [facility] Outreach Member Role: Lifetime Consulting Physician Name: Monique Guzmán RN Position: [facility] RN Member Role: Primary Care Nurse Name: Roselia Crain RN Position: [facility] RN Member Role: Primary Care Nurse Name: Jorge Crews RN Position: [facility] RN Member Role: Primary Care Nurse Address: Address: [address] [place] [address]- Name: Marcelo Joy MD Position: [facility] Renal MD Member Role: Lifetime Consulting Physician Address: Address: [address] [place] [address] [facility] [place], [place] [address] Name: Nell Copeland RN Position: [facility] RN Member Role: Primary Care Nurse Name: Star Hagen RN Position: [facility] RN Member Role: Primary Care Nurse Name: Odalis Roy RN Position: [facility] SN RN Member Role: Primary Care Nurse Name: Merline Carlson RN Position: [facility] RN Member Role: Primary Care Nurse Name: Nupur Black RN Position: [facility] RN Member Role: Primary Care Nurse Name: Serena Allen RN Position: [facility] Onco RN Member Role: Primary Care Nurse Name: Maura Tsagn RN Position: [facility] RN Member Role: Primary Care Nurse Care Team Related Persons Name: KAYCE PARK Address: [address] [place] [address] Name: NAZARIOSANTIAGO Address: home [address] [place] [address]
--- OUTSIDE RECORDS SUMMARY | 2023-02-07 12:13 | XMS_ITS | Continuity of Care Document ---
Author Name Unknown Organization [facility] Ezra jeanna Address [address] [place] [address] [address] [place] [address]- Care Team Providers Care Regulatory Services Consultant Name Role Phone Krishna Tapia MD Primary Care Physician [phone] Encounter [facility] Date(s): 01/01/23 - 01/31/23 [facility] [address] [place], [place] [address] Attending Physician: Admtr, Ar8 Admitting Physician: Admtr, Ar8 Referring Physician: Admtr, Ar8 Allergies, Adverse Reactions, Alerts Substance Reaction Severity [...] 0 Refills, Maintenance, 06/22/22 6:51:00 EDT, Capsule, [facility], Partial fill upon patient [...] 08/29/22 8:44:00 EST, Route to Pharmacy Electronically, [facility], Partial fill upon patient [...] EVERY DAY, # 180 tablet, 1 Refills, [facility] STORE 17647, 173,cm, 01/24/22 16:16:00 EDT, Height, 91.1, kg, [...] 11/07/22 16:29:00 EDT, Route to Pharmacy Electronically, [facility], Partial fill upon patient request if [...] MRI Safety Implantable Status Assigning Authority Unknown [id number] Unknown Unknown 09/26/25 Unknown Unknown Active Unknown [...] Care Nurse Name: Krishna Tapia MD Position: [facility] Outreach Member Role: PCP Address: Address: [address] [place] [address] [place] [address]- Name: Miguelangel Cancino MD Position: [facility] Renal MD Member Role: Lifetime Consulting Physician Address: Address: [address] [place] [address], [address] [facility] [place] [address]- Name: Lavonne Mckenzie RN Position: S RN [...] Care Nurse Name: Barak Shaw DO Position: [facility] Renal MD Member Role: Lifetime Consulting Physician Address: Address: [address] [place] [address] [address] [facility] [place] [address]- Name: Tayla Fine Position: S Outreach Member Role: Lifetime Consulting Physician Name: Niki Montes RN Position: [facility] RN Member Role: Primary Care Nurse Name: Stella Calhoun RN Position: [facility] RN Member Role: Primary Care Nurse Name: Wse Lezama Position: [facility] Associate Professional Member Role: Lifetime Consulting Provider Address: Address: [address] [place] [address]- Name: Kinjal Macias RN Position: [facility] RN Member Role: Primary Care Nurse Name: Estephania Pizano RN Position: [facility] ED RN W/OE and Tasks Member Role: Primary Care Nurse Name: Alexis Brooke MD Position: [facility] Renal MD Member Role: Lifetime Consulting Physician Address: Address: [address] [place] [address] [address] [facility] [place] [place] [address]- Name: Amanda Vides RN Position: [facility] RN Member Role: Primary Care Nurse Name: Chantelle Villareal RN Position: [facility] RN Member Role: Primary Care Nurse Name: Brisa Michaels RN Position: [facility] RN Member Role: Primary Care Nurse Name: London Chau RN Position: [facility] ED RN W/OE and Tasks Member Role: Primary Care Nurse Name: Ana Schafer RN Position: [facility] RN Member Role: Primary Care Nurse Name: Liz Aguilera RN Position: [facility] Outreach Member Role: Lifetime Consulting Physician Name: Sudhir Chan Position: [facility] Outreach Member Role: Lifetime Consulting Physician Name: Monique Guzmán RN Position: [facility] RN Member Role: Primary Care Nurse Name: Roselia Crain RN Position: [facility] RN Member Role: Primary Care Nurse Name: Jorge Crews RN Position: [facility] RN Member Role: Primary Care Nurse Address: Address: [address] [place] [address]- Name: Marcelo Joy MD Position: [facility] Renal MD Member Role: Lifetime Consulting Physician Address: Address: [address] [place] [address] [facility] [place] [address]- Name: Nell Copeland RN Position: [facility] RN Member Role: Primary Care Nurse Name: Star Hagen RN Position: [facility] RN Member Role: Primary Care Nurse Name: Odalis Roy RN Position: [facility] SN RN Member Role: Primary Care Nurse Name: Merline Carlson RN Position: [facility] RN Member Role: Primary Care Nurse Name: Nupur Black RN Position: S RN Member Role: Primary Care Nurse Name: Serena Allen RN Position: [facility] Onco RN Member Role: Primary Care Nurse Name: Maura Tsang RN Position: [facility] RN Member Role: Primary Care Nurse Care Team Related Persons Name: KAYCE PARK Address: home [address] [place] [address] Name: SANTIAGO NAZARIO Address: home [address] [place] [address]
--- OUTSIDE RECORDS SUMMARY | 2023-02-07 12:13 | XMS_ITS | Continuity of Care Document ---
Author Name Unknown Organization [facility] y Address [address] [place] [address]- Care Team Providers Care Aircraft Pilot Name Role Phone Krishna Tapia MD Primary Care Physician Encounter [facility] R [id number] Date(s): 05/28/22 - 10/19/22 [facility] [address] [place], [place] [address] Attending Physician: Daniel Brantley DO Admitting Physician: Daniel Brantley DO Referring Physician: Kailey [place], [facility] Allergies, Adverse Reactions, Alerts Substance Reaction Severity [...] Refills, Maintenance, 06/22/22 6:51:00 EDT, Capsule, [facility] 3, Partial fill upon patient [...] 8:44:00 EST, Route to Pharmacy Electronically, [facility], Partial fill upon patient [...] EVERY DAY, # 180 tablet, 1 Refills, [facility] 23931, 173,cm, 01/24/22 16:16:00 EDT, Height, 91.1, kg, [...] 05/23/22 14:38:00 EDT, Route to Pharmacy Electronically, [facility], Partial fill upon patient request [...] 0 Refills, Maintenance, 06/22/22 6:51:00 EDT, Tablet, [facility] 3, Partial fill upon patient [...] MRI Safety Implantable Status Assigning Authority Unknown [id number] Unknown Unknown 09/26/25 Unknown Unknown Active Unknown [...] Care Nurse Name: Krishna Tapia MD Position: [facility] Outreach Member Role: PCP Address: Address: [address] [place] [address] [place] [address]- Name: Miguelangel Cancino MD Position: [facility] Renal MD Member Role: Lifetime Consulting Physician Address: Address: [address] [place] [address], [address] [facility] [place] [address]- Name: Lavonne Mckenzie RN Position: S RN [...] Care Nurse Name: Barak Shaw DO Position: [facility] Renal MD Member Role: Lifetime Consulting Physician Address: Address: [address] [place] [address] [address] [facility] [place] [address]- Name: Tayla Fine Position: S Outreach Member Role: Lifetime Consulting Physician Name: Niki Montes RN Position: [facility] RN Member Role: Primary Care Nurse Name: Stella Calhoun RN Position: [facility] RN Member Role: Primary Care Nurse Name: Wes Lezama Position: [facility] Associate Professional Member Role: Lifetime Consulting Provider Address: Address: [address] [place] [address]- Name: Kinjal Macias RN Position: [facility] RN Member Role: Primary Care Nurse Name: Estephania Pizano RN Position: [facility] ED RN W/OE and Tasks Member Role: Primary Care Nurse Name: Zita Barrow RN Position: [facility] RN Member Role: Primary Care Nurse Name: Alexis Brooke MD Position: [facility] Renal MD Member Role: Lifetime Consulting Physician Address: Address: [address] [place] [address] [address] [facility] [place] [address]- Name: Amanda Vides RN Position: [facility] RN Member Role: Primary Care Nurse Name: Chantelle Villareal RN Position: [facility] RN Member Role: Primary Care Nurse Name: Brisa Michaels RN Position: [facility] RN Member Role: Primary Care Nurse Name: London Chau RN Position: [facility] RN Member Role: Primary Care Nurse Name: Ana Schafer RN Position: [facility] RN Member Role: Primary Care Nurse Name: Liz Aguilera RN Position: [facility] Outreach Member Role: Lifetime Consulting Physician Name: Sudhir Chan Position: [facility] Outreach Member Role: Lifetime Consulting Physician Name: Monique Guzmán RN Position: [facility] RN Member Role: Primary Care Nurse Name: Roselia Crain RN Position: [facility] RN Member Role: Primary Care Nurse Name: Jorge Crews RN Position: [facility] RN Member Role: Primary Care Nurse Address: Address: [address] [place] [address]- Name: Marcelo Joy MD Position: [facility] Renal MD Member Role: Lifetime Consulting Physician Address: Address: [address] [place] [address] [facility] [place] [address]- Name: Nell Copeland RN Position: [facility] RN Member Role: Primary Care Nurse Name: Star Hagen RN Position: [facility] RN Member Role: Primary Care Nurse Name: Odalis Roy RN Position: [facility] SN RN Member Role: Primary Care Nurse Name: Merline Carlson RN Position: [facility] RN Member Role: Primary Care Nurse Name: Nupur Black RN Position: [facility] RN Member Role: Primary Care Nurse Name: Serena Allen RN Position: [facility] Onco RN Member Role: Primary Care Nurse Name: Maura Tsang RN Position: [facility] RN Member Role: Primary Care Nurse Care Team Related Persons Name: RAQUELDARLENE KAYCE Address: home [address] [place] [address] Name: SANTIAGO NAZARIO Address: [address] [place] [address]
--- OUTSIDE RECORDS SUMMARY | 2023-02-07 12:13 | XMS_ITS | Continuity of Care Document ---
Author Name Unknown Organization [facility] Address [address] [place] [address]- Care Team Providers Care Last Putter Away Name Role Phone Krishna Tapia MD Primary Care Physician En[facility] Date(s): 08/01/22 - 09/06/[address] [address] Attending Physician: Krishna Tapia MD Admitting Physician: Krishna Tapia MD Allergies, Adverse Reactions, Alerts Substance Reaction Severity Status Lyrica mind races Unknown Active fentanyl 1 trouble breathing Unknown Active Ancef 2 trouble breathing Unknown Active 1 unsure which caused trouble [...] 0 Refills, Maintenance, 06/22/22 6:51:00 EDT, Capsule, [facility] 3, Partial fill upon patient request if [...] 08/29/22 8:44:00 EST, Route to Pharmacy Electronically, [facility] 3, Partial fill upon patient request if [...] EVERY DAY, # 180 tablet, 1 Refills, [facility] STORE [facility]212, 173,cm, 01/24/22 16:16:00 EDT, Height, 91.1, kg, [...] 05/23/22 14:38:00 EDT, Route to Pharmacy Electronically, [facility], Partial fill upon patient request if [...] 0 Refills, Maintenance, 06/22/22 6:51:00 EDT, Tablet, [facility], Partial fill upon patient [...] MRI Safety Implantable Status Assigning Authority Unknown [id number] Unknown Unknown 09/26/25 Unknown Unknown Active Unknown Patient Care team information Care Team Personnel Name: Wild Santos RN Position: [facility] RN Member Role: Primary Care Nurse Name: Lucy Garcia RN Position: S RN Member Role: Primary Care Nurse Name: Julianna Mazariegos RN Position: S RN Member Role: Primary Care Nurse Name: Simin Rosario RN Position: S RN Member Role: Primary Care Nurse Name: Janie Kunz RN Position: S RN Member Role: Primary Care Nurse Name: Krishna Tapia MD Position: [facility] Outreach Member Role: PCP Address: Address: [address] [place] [address] [place] [address]- Name: Miguelangel Cancino MD Position: [facility] Renal MD Member Role: Lifetime Consulting Physician Address: Address: [address] [place] [address], [address] [facility] [place] [address]- Name: Lavonne Mckenzie RN Position: [facility] RN Member Role: Primary Care [...] Care Nurse Name: Barak Shaw DO Position: [facility] Renal MD Member Role: Lifetime Consulting Physician Address: Address: [address] [place] [address] [address] [facility] [place] [address]- Name: Tayla Fine Position: S Outreach Member Role: Lifetime Consulting Physician Name: Niki Montes RN Position: [facility] RN Member Role: Primary Care Nurse Name: Stella Calhoun RN Position: S RN Member Role: Primary Care Nurse Name: Wes Lezama Position: [facility] Associate Professional Member Role: Lifetime Consulting Provider Address: Address: [address] [place] [address]- Name: Kinjal Macias RN Position: [facility] RN Member Role: Primary Care Nurse Name: Estephania Pizano RN Position: [facility] ED RN W/OE and Tasks Member Role: Primary Care Nurse Name: Zita Barrow RN Position: [facility] RN Member Role: Primary Care Nurse Name: Alexis Brooke MD Position: [facility] Renal MD Member Role: Lifetime Consulting Physician Address: Address: [address] [place] [address] [address] [facility] [place] [address]- Name: Amanda Vides RN Position: [facility] RN Member Role: Primary Care Nurse Name: Chantelle Villareal RN Position: [facility] RN Member Role: Primary Care Nurse Name: Brisa Michaels RN Position: [facility] RN Member Role: Primary Care Nurse Name: London Chau RN Position: [facility] RN Member Role: Primary Care Nurse Name: Ana Schafer RN Position: [facility] RN Member Role: Primary Care Nurse Name: Liz Aguilera RN Position: [facility] Outreach Member Role: Lifetime Consulting Physician Name: Sudhir Chna Position: [facility] Outreach Member Role: Lifetime Consulting Physician Name: Monique Guzmán RN Position: [facility] RN Member Role: Primary Care Nurse Name: Roselia Crain RN Position: [facility] RN Member Role: Primary Care Nurse Name: Jorge Crews RN Position: [facility] RN Member Role: Primary Care Nurse Address: Address: [address] [place] [address]- Name: Marcelo Joy MD Position: [facility] Renal MD Member Role: Lifetime Consulting Physician Address: Address: [address] [place] [address] [facility] [place] [address]- Name: Nell Copeland RN Position: [facility] RN Member Role: Primary Care Nurse Name: Odalis Roy RN Position: [facility] SN RN Member Role: Primary Care Nurse Name: Merline Carlson RN Position: [facility] RN Member Role: Primary Care Nurse Name: Nupur Black RN Position: [facility] RN Member Role: Primary Care Nurse Name: Serena Allen RN Position: [facility] Onco RN Member Role: Primary Care Nurse Name: Maura Tsang RN Position: [facility] RN Member Role: Primary Care Nurse Care Team Related Persons Name: KAYCE PARK Address: [address] [place] [address] Name: SANTIAGO NAZARIO Address: home [address] [place] [address]
--- OUTSIDE RECORDS SUMMARY | 2023-02-07 12:14 | XMS_ITS | Continuity of Care Document ---
Author Name Unknown Organization [facility] jeanna Address [address] [place] [address] [address] [place] [address]- Care Team Providers Care Senior Director Insight Name Role Phone Krishna Tapia MD Primary Care Physician [phone] [place] [facility] [place]/01[place]23 - 01/08/[address] [place], [place] [address] Attending Physician: Jesse Sorenson MD Allergies, Adverse Reactions, Alerts Substance Reaction [...] 0 Refills, Maintenance, 06/22/22 6:51:00 EDT, Capsule, [facility], Partial fill upon patient [...] 08/29/22 8:44:00 EST, Route to Pharmacy Electronically, [facility] 3, Partial fill upon patient [...] EVERY DAY, # 180 tablet, 1 Refills, [id number], 173,cm, 01/24/22 16:16:00 EDT, Height, 91.1, kg, [...] 11/07/22 16:29:00 EDT, Route to Pharmacy Electronically, [facility], Partial fill upon patient request if [...] oldest [Reference Range]: 1 Height 173 cm (01/01/23 11:44 AM) Weight 97 kg (01/01/23 11:44 AM) Body Mass Index [18.5-24.99 kg/m2] 32.41 kg/m2 *>HHI* (01/01/23 11:44 AM) Social History Social History Type Response Smoking Status Never smoker entered on: 01/06/17 Sex Male Implantable Device List Procedure Provider Procedure Date Device Type Site Creation Arteriovenous Graft Upper Extre Joesf Adams MD 03/12/21 Unknown Arm Left Device Identifier Serial Number Lot or Batch Number Manufacturing Date Expiration Date Distinct Identification Code MRI Safety Implantable Status Assigning Authority Unknown [id number] Unknown Unknown 09/26/25 Unknown Unknown Active Unknown [...] RN Member Role: Primary Care Nurse Name: Janei Kunz RN Position: S RN Member Role: Primary Care Nurse Name: Krishna Tapia MD Position: [facility] Outreach Member Role: PCP Address: Address: [address] [place] [address] Krishna Tapia MD [place], [place] [address] Name: Miguelangel Cancino MD Position: [facility] Renal MD Member Role: Lifetime Consulting Physician Address: Address: [address] [place] [address], [address] [facility] [place] [address]- Name: Lavonne Mckenzie RN Position: S RN [...] Care Nurse Name: Barak Shaw DO Position: [facility] Renal MD Member Role: Lifetime Consulting Physician Address: Address: [address] [facility] [place] [address]- Name: Rody Tayla Position: S Outreach Member Role: Lifetime Consulting Physician Name: Niki Montes RN Position: [facility] RN Member Role: Primary Care Nurse Name: Stella Calhoun RN Position: S RN Member Role: Primary Care Nurse Name: Wes Lezama Position: [facility] Associate Professional Member Role: Lifetime Consulting Provider Address: Address: [address] [place] [address]- Name: Kinjal Macias RN Position: [facility] RN Member Role: Primary Care Nurse Name: Estephania Pizano RN Position: [facility] ED RN W/OE and Tasks Member Role: Primary Care Nurse Name: Alexis Brooke MD Position: [facility] Renal MD Member Role: Lifetime Consulting Physician Address: Address: [address] [place] [address] [address] [facility] [place] [address]- Name: Amanda Vides RN Position: [facility] RN Member Role: Primary Care Nurse Name: Chantelle Villareal RN Position: [facility] RN Member Role: Primary Care Nurse Name: Brisa Michaels RN Position: [facility] RN Member Role: Primary Care Nurse Name: London Chau RN Position: [facility] RN Member Role: Primary Care Nurse Name: Ana Schafer RN Position: [facility] RN Member Role: Primary Care Nurse Name: Liz Aguilera RN Position: [facility] Outreach Member Role: Lifetime Consulting Physician Name: Sudhir Chan Position: [facility] Outreach Member Role: Lifetime Consulting Physician Name: Monique Guzmán RN Position: [facility] RN Member Role: Primary Care Nurse Name: Roselia Crain RN Position: [facility] RN Member Role: Primary Care Nurse Name: Jorge Crews RN Position: [facility] RN Member Role: Primary Care Nurse Address: Address: [address] [place] [address]- [place] Name: Marcelo Joy MD Position: [facility] Renal MD Member Role: Lifetime Consulting Physician Address: Address: [address] [place] [address] [facility] [place] [address]- Name: Nell Copeland RN Position: [facility] RN Member Role: Primary Care Nurse Name: Star Hagen RN Position: [facility] RN Member Role: Primary Care Nurse Name: Odalis Roy RN Position: [facility] SN RN Member Role: Primary Care Nurse Name: Merline Carlson RN Position: [facility] RN Member Role: Primary Care Nurse Name: Nupur Black RN Position: [facility] RN Member Role: Primary Care Nurse Name: Serena Allen RN Position: [facility] Onco RN Member Role: Primary Care Nurse Name: Maura Tsang RN Position: [facility] RN Member Role: Primary Care Nurse Care Team Related Persons Name: KAYCE PARK Address: [address] [place] [address] Name: SANTIAGO NAZARIO Address: home [address] [place] [id number]
--- OUTSIDE RECORDS SUMMARY | 2023-02-07 12:14 | XMS_ITS | Continuity of Care Document ---
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 Discharge Disposition: A-D/C Home Attending Physician: Cathy Caputo MD Admitting Physician: Bruno Huang MD Referring Physician: Not on Staff, Referring [...] 0 Refills, Maintenance, 06/22/22 6:51:00 EDT, Capsule, [facility], Partial fill upon patient request if the prescription is for a schedule II opioid drug.... Start Date: 06/22/22 Stop Date: 07/22/22 Status: Ordered cyanocobalamin 1000 mcg oral tablet 1,000 mcg, 1, tablet, By Mouth, Daily, Refills 0, Maintenance, 07/30/21 9:18:00 EST Start Date: 07/30/21 Status: Ordered Dilaudid Inj 0.5 mg, Injection, IV Push Slowly, Every 4 hours, PRN for Pain , Severe, Routine, 09/04/22 13:05:00EST Start Date: 09/04/22 Stop Date: 09/07/22 Status: Discontinued Epoetin Brett 1 mL = 40,000 units, [...] 08/29/22 8:44:00 EST, Route to Pharmacy Electronically, [facility], Partial fill upon patient request [...] EVERY DAY, # 180 tablet, 1 Refills, [id number], 173,cm, 01/24/22 16:16:00 EDT, Height, 91.1, kg, [...] 05/23/22 14:38:00 EDT, Route to Pharmacy Electronically, [facility], Partial fill upon patient request if [...] 0 Refills, Maintenance, 06/22/22 6:51:00 EDT, Tablet, [facility], Partial fill upon patient request [...] Exam Date Time Procedure Performing Provider Status 09/05/22 9:53 AM US Doppler Ext Lower Venous Bilat Daws on , Maty; Auth (Verified) Notes: (US Doppler Ext Lower Venous Bilat) Reason For Exam: Swelling Extremities RESULT: US Doppler Ext Lower Venous Bilat US Doppler Ext Lower Venous Bilat Reason: Swelling of the bilateral extremities. Clinical Question(s): Thrombosis. COMPARISON: Bilateral lower extremity venous Doppler ultrasound 08/27/2022 IMAGING TECHNIQUE: Ultrasound of the veins from the groin through the calf was performed using grayscale, color, and spectral Doppler ultrasound assessing for complete compressibility and normal flowcharacteristics. FINDINGS: Technically difficult exam due to bilateral diffuse calf edema and patient inability to Valsalva. RIGHT LOWER EXTREMITY: Common femoral vein: Patent. No thrombosis. Femoral vein: Patent. No thrombosis. Popliteal vein: Patent. No thrombosis. Gastrocnemius veins: The visualized portions are patent without evidence of thrombosis. Peroneal veins: The visualized portions are patent without evidence of thrombosis. Posterior tibial veins: The visualized portions are patent without evidence of thrombosis. LEFT LOWER EXTREMITY: Common femoral vein: Patent. No thrombosis. Femoral vein: Patent. No thrombosis. Popliteal vein: Patent. No thrombosis. Gastrocnemius veins: The visualized portions are patent without evidence of thrombosis. Peroneal veins: The visualized portions are patent without evidence of thrombosis. Posterior tibial veins: The visualized portions are patent without evidence of thrombosis. OTHER FINDINGS: Diffuse bilateral calf edema. IMPRESSION: Technically difficult exam due to bilateral diffuse calf edema and patient inability to complete Valsalva maneuvers. Within these limitations, there is no evidence of deep venous thrombosis. I have personally reviewed the images and I agree with this report. WSN: [id number] Ordering Physician: Jaiden Sol Dictated By: Amparo Gonzalez DO Dictated Date/Time: 09/05/22 11:42 a Reviewed By: Barak Khan MD Signed By: Barak Khan MD Signed Date/Time: 09/05/22 11:47 am Transcribed By: AMY Transcribed Date/Time: 09/05/22 10:32 am * Exam Date Time Procedure Performing Provider Status 09/05/22 9:53 AM US RUQ Maty Davis; Auth (Ve rified) Notes: (US RUQ) Reason For Exam: elevated liver enzymes;Cholecystitis RESULT: US RUQ US RUQ Reason: Elevated liver enzymes. Clinical Question(s): Cholecystitis. COMPARISON: CT abdomen/pelvis 09/03/2022 FINDINGS: Liver: Mildly echogenic parenchyma. No suspicious lesion. Smooth hepatic contour. Main portal vein patent with normal hepatopetal direction of flow. Gallbladder: No gallstones. Trace mobile gallbladder sludge may be present. Normal wall thickness. No pericholecystic fluid. Negative Casillas sign. Biliary Tree: No intrahepatic or extrahepatic bile duct dilation is identified. Common duct measures: 0.3 cm. Pancreas: Partially obscured by overlying bowel gas. No abnormality in the visualized portions of the pancreas. Right kidney: 5.4 cm in length. Severely atrophic with echogenic parenchyma. No hydronephrosis. IMPRESSION: No evidence of acute cholecystitis. Mildly echogenic liver likely representing hepatic steatosis. Atrophic right kidney again demonstrated. I have personally reviewed the images and I agree with this report. WSN: [id number] Ordering Physician: Jaiden Sol Dictated By: Amparo Gonzalez DO Dictated Date/Time: 09/05/22 11:40 a Reviewed By: Barak Khan MD Signed By: Barak Khan MD Signed Date/Time: 09/05/22 11:45 am Transcribed By: AMY Transcribed Date/Time: 09/05/22 11:28 am * Exam Date Time Procedure Performing Provider Status 09/03/22 10:[address] Abd/Pelvis W/ IV Contrast Only Kerri Lezama; Auth (Verified) Notes: (CT Abd/Pelvis W/ IV Contrast Only) Reason For Exam: LLQ abdominal pain;Other: RESULT: CT Abd/Pelvis W/ IV Contrast Only EXAMINATION: CT Angio Chest, CT Abd/Pelvis W/ IV Contrast Only INDICATION: Hx of Present Illness: dialysis pt, presents to ed with abd distention and discomfort, also reports sob with exertion and at rest lying; Reason: Other:; PE suspected, Intermediate prob, positive D-dimer,; Clinical Question(s): Pulmonary Embolism TECHNIQUE: Spiral CTA of the chest was performed after rapid IV contrast administration without cardiac gating triggered by an LUCIANA on the main pulmonary artery. Spiral CT of the abdomen and pelvis was then performed in the portal venous phase. Images are formatted in multiple planes using 2-D multiplanar and 3-D maximum intensity projection. 100 cc of Omnipaque 300 was administered intravenously.Weight-based protocol using automatic tube modulation was used to optimize exposure parameters. CTDIvol Body: 11.83 mGy, DLP Body: 1557 mGy*cm. COMPARISONS: 08/28/2022, CT abdomen and pelvis 07/20/2021. ANGIOGRAPHIC FINDINGS: No pulmonary embolism to the subsegmental level. Normal caliber pulmonary arteries. There is contrast reflux into the IVC and hepatic veins, suggesting increased right heart pressure. No acute aortic abnormality seen on this study performed without cardiac gating. NON-ANGIOGRAPHIC FINDINGS: Production Quality Analyst View Findings, Lines and Tubes: None. Trachea and Airways: Minimal mucus along the right upper lobe bronchus, otherwise patent. Lungs and Pleura: Unchanged scattered peribronchial tree-in-bud, groundglass nodules. Areas of bronchiolectasis adjacent to the groundglass nodules in the left upper lobe. No effusion or pneumothorax. Mediastinum and irish: No mass or hematoma. No mediastinal or hilar lymphadenopathy. Small type I hiatal hernia. Mild diffuse esophageal wall thickening. There is a 1.6 cm right thyroid lobe nodule. Heart: Mild cardiomegaly. No pericardial effusion. Severe coronary artery calcification. Chest Wall Soft Tissues: Moderate gynecomastia. Dependent bilateral subcutaneous edema. Venous graft present along the left axilla. Diaphragm: No significant abnormality. Liver: Diffuse low-attenuation throughout the liver parenchyma consistent with hepatic steatosis. No evidence of mass. Gallbladder: Mildly wall thickening of the gallbladder, without pericholecystic fluid and under distended lumen, likely due to underlying hepatocellular disease. Possible small gallstone in the lumen. Bile ducts: No biliary ductal dilation. Spleen: Normal. Pancreas: Severe fatty atrophy, otherwise unremarkable. Adrenal glands: Normal. Kidneys and ureters: Severely atrophic [place] kidneys. Transplant kidney present within the right lower quadrant. No hydronephrosis, no nephrolithiasis. Mild fat stranding in the transplant kidney perinephric region, is unchanged since 2020. Bladder: Contains hyperdense fluid likely representing mixture of urine and excreted IV contrast. Reproductive organs: Unremarkable. Stomach, small bowel, and large bowel: Small type I hiatal hernia. Multiple fluid-filled the small bowel is present in the left abdomen with adjacent free fluid. Appendix: Normal. Peritoneum and retroperitoneum: Trace ascites present. No omental or mesenteric lesions. Lymph nodes: No enlarged lymph nodes. Abdominal and pelvic wall: Diffuse subcutaneous edema. There is periumbilical skin thickening and asmall focus of skin thickening in the right inguinal region. Bones: No acute abnormality. IMPRESSION: 1. No evidence of pulmonary embolism. 2. Unchanged scattered groundglass and tree-in-bud opacities within the lungs. There are areas of bronchiolectasis especially within the bilateral upper lobes suggesting underlying chronic interstitial lung disease such as smoking-related versus hypersensitivity pneumonitis. Underlying bronchiolitis cannot be excluded in the appropriate clinical setting. 3. There is mild gallbladder wall thickening with pericholecystic fluid which could represent earlyacute cholecystitis. Further evaluation of the right upper quadrant ultrasound can be considered ifclinical suspicion for acute cholecystitis. 4. Mild diffuse esophagitis. 5. 1.6 cm right thyroid lobe nodule should be further evaluated with nonemergent ultrasound ACR guidelines. 6. Hepatic steatosis. 7. Periumbilical and right inguinal skin thickening. Please correlate with physical examination findings to exclude cellulitis. 8. Additional chronic incidental findings. I have personally reviewed the images and I agree with this report. WSN: [id number] Ordering Physician: Lavonne Jama Dictated By: Sal[Radiology] Freddy GREENWOOD Dictated Date/Time: 09/03/22 11:27 p Reviewed By: Charo Nevarez MD Signed By: Charo Nevarez MD Signed Date/Time: 09/03/22 11:32 pm Transcribed By: AMY Transcribed Date/Time: 09/03/22 11:17 pm * Exam Date Time Procedure Performing Provider Status 09/03/22 10:[address] Angio Chest Kerri Lezama; Auth (Verified) Notes: (CT Angio Chest) Reason For Exam: PE suspected, Intermediate prob, positive D-dimer,;Other: RESULT: CT Angio Chest EXAMINATION: CT Angio Chest, CT Abd/Pelvis W/ IV Contrast Only INDICATION: Hx of Present Illness: dialysis pt, presents to ed with abd distention and discomfort, also reports sob with exertion and at rest lying; Reason: Other:; PE suspected, Intermediate prob, positive D-dimer,; Clinical Question(s): Pulmonary Embolism TECHNIQUE: Spiral CTA of the chest was performed after rapid IV contrast administration without cardiac gating triggered by an LUCIANA on the main pulmonary artery. Spiral CT of the abdomen and pelvis was then performed in the portal venous phase. Images are formatted in multiple planes using 2-D multiplanar and 3-D maximum intensity projection. 100 cc of Omnipaque 300 was administered intravenously.Weight-based protocol using automatic tube modulation was used to optimize exposure parameters. CTDIvol Body: 11.83 mGy, DLP Body: 1557 mGy*cm. COMPARISONS: 08/28/2022, CT abdomen and pelvis 07/20/2021. ANGIOGRAPHIC FINDINGS: No pulmonary embolism to the subsegmental level. Normal caliber pulmonary arteries. There is contrast reflux into the IVC and hepatic veins, suggesting increased right heart pressure. No acute aortic abnormality seen on this study performed without cardiac gating. NON-ANGIOGRAPHIC FINDINGS: Production Quality Analyst View Findings, Lines and Tubes: None. Trachea and Airways: Minimal mucus along the right upper lobe bronchus, otherwise patent. Lungs and Pleura: Unchanged scattered peribronchial tree-in-bud, groundglass nodules. Areas of bronchiolectasis adjacent to the groundglass nodules in the left upper lobe. No effusion or pneumothorax. Mediastinum and irish: No mass or hematoma. No mediastinal or hilar lymphadenopathy. Small type I hiatal hernia. Mild diffuse esophageal wall thickening. There is a 1.6 cm right thyroid lobe nodule. Heart: Mild cardiomegaly. No pericardial effusion. Severe coronary artery calcification. Chest Wall Soft Tissues: Moderate gynecomastia. Dependent bilateral subcutaneous edema. Venous graft present along the left axilla. Diaphragm: No significant abnormality. Liver: Diffuse low-attenuation throughout the liver parenchyma consistent with hepatic steatosis. No evidence of mass. Gallbladder: Mildly wall thickening of the gallbladder, without pericholecystic fluid and under distended lumen, likely due to underlying hepatocellular disease. Possible small gallstone in the lumen. Bile ducts: No biliary ductal dilation. Spleen: Normal. Pancreas: Severe fatty atrophy, otherwise unremarkable. Adrenal glands: Normal. Kidneys and ureters: Severely atrophic [place] kidneys. Transplant kidney present within the right lower quadrant. No hydronephrosis, no nephrolithiasis. Mild fat stranding in the transplant kidney perinephric region, is unchanged since 2020. Bladder: Contains hyperdense fluid likely representing mixture of urine and excreted IV contrast. Reproductive organs: Unremarkable. Stomach, small bowel, and large bowel: Small type I hiatal hernia. Multiple fluid-filled the small bowel is present in the left abdomen with adjacent free fluid. Appendix: Normal. Peritoneum and retroperitoneum: Trace ascites present. No omental or mesenteric lesions. Lymph nodes: No enlarged lymph nodes. Abdominal and pelvic wall: Diffuse subcutaneous edema. There is periumbilical skin thickening and asmall focus of skin thickening in the right inguinal region. Bones: No acute abnormality. IMPRESSION: 1. No evidence of pulmonary embolism. 2. Unchanged scattered groundglass and tree-in-bud opacities within the lungs. There are areas of bronchiolectasis especially within the bilateral upper lobes suggesting underlying chronic interstitial lung disease such as smoking-related versus hypersensitivity pneumonitis. Underlying bronchiolitis cannot be excluded in the appropriate clinical setting. 3. There is mild gallbladder wall thickening with pericholecystic fluid which could represent earlyacute cholecystitis. Further evaluation of the right upper quadrant ultrasound can be considered ifclinical suspicion for acute cholecystitis. 4. Mild diffuse esophagitis. 5. 1.6 cm right thyroid lobe nodule should be further evaluated with nonemergent ultrasound ACR guidelines. 6. Hepatic steatosis. 7. Periumbilical and right inguinal skin thickening. Please correlate with physical examination findings to exclude cellulitis. 8. Additional chronic incidental findings. I have personally reviewed the images and I agree with this report. WSN: [id number] Ordering Physician: Lavonne Jama Dictated By: Sal[Radiology] Freddy GREENWOOD Dictated Date/Time: 09/03/22 11:27 p Reviewed By: Charo Nevarez MD Signed By: Charo Nevarez MD Signed Date/Time: 09/03/22 11:32 pm Transcribed By: AMY Transcribed Date/Time: 09/03/22 11:17 pm * Exam Date Time Procedure Performing Provider Status 09/03/22 5:56 PM Chest 2 Views Frontal and Lat Karl Cortes; Auth (Verified) Notes: (Chest 2 Views Frontal and Lat) Reason For Exam: Shortness of Breath RESULT: Chest 2 Views Frontal and Lat Chest 2 Views Frontal and Lat Hx of Present Illness: Dialysis pt, presents to ed with abd distention and discomfort, also reportssob with exertion and at rest lying; Reason: Shortness of Breath; Clinical Question(s): CHF COMPARISON: None. FINDINGS: Exam slightly suboptimal due to soft tissue overlap. LINES AND TUBES: None. LUNGS AND PLEURA: Low lung volumes with mild basilar atelectasis. Lungs are otherwise clear with no consolidation. No pleural effusion. No pneumothorax. HEART, MEDIASTINUM AND IRISH: Heart is at the upper limits of normal for size. Normal mediastinal and hilar contour. BONES AND SOFT TISSUES: No acute abnormality. Vascular stents in the left axilla. IMPRESSION: No acute abnormality. WSN: [id number] Ordering Physician: Lavonne Jama Dictated By: Kennedy Christian MD Dictated Date/Time: 09/03/22 5:58 pm Reviewed By: Kennedy Christian MD Signed By: Kennedy Christian MD Signed Date/Time: 09/03/22 5:58 pm Transcribed By: AMY Transcribed Date/Time: 09/03/22 5:57 pm Vital Signs Most recent to oldest [Reference Range]: 1 2 3 Height 173 cm (09/06/22 1:11 PM) 173 cm (09/06/22 7:25 AM) 173 cm (09/06/22 2:58 AM) Weight 105 kg (09/04/22 3:09 AM) 90 kg (09/04/22 2:19 AM) Oxygen Saturation [94-100 %] 94 % (09/06/22 1:11 PM) 95 % (09/06/22 7:25 AM) 97 % (09/06/22 2:58 AM) Pulse Rate [55-90 bpm] 74 bpm (09/06/22 1:11 PM) 72 bpm (09/06/22 7:25 AM) 69 bpm (09/06/22 2:58 AM) Body Mass Index [18.5-24.99 kg/m2] 35.08 kg/m2 *>HHI* (09/04/22 3:09 AM) Blood Pressure [90-138/55-84 mm Hg] 140/76mm Hg *H* (09/06/22 1:11 PM) 116/64mm Hg (09/06/22 7:25 AM) 110/62mm Hg (09/06/22 2:58 AM) Respiratory Rate [16-30 br/min] 18 br/min (09/06/22 1:11 PM) 18 br/min (09/06/22 7:25 AM) 16 br/min (09/06/22 6:40 AM) Temperature [96.8-100.4 DegF] 98.9 DegF (09/06/22 1:11 PM) 98.3 DegF (09/06/22 7:25 AM) 98.5 DegF (09/06/22 2:58 AM) Mode of Delivery (Oxygen) Room air (09/06/22 1:11 PM) Room air (09/06/22 7:25 AM) Room air (09/06/22 2:58 AM) Blood pressure sites Arm, right (09/06/22 7:25 AM) Arm, right (09/06/22 2:58 AM) Arm, right (09/05/22 10:57 PM) Temperature Route Oral (09/06/22 1:11 PM) Oral (09/06/22 7:25 AM) Oral (09/06/22 2:58 AM) Dry Weight 105 kg (09/04/22 3:09 AM) Weight Obtained Via Bed scale (09/04/22 2:19 AM) Social History Social History Type Response Smoking Status Never smoker entered on: 01/06/17 Sex Male Implantable Device List Procedure Provider Procedure Date Device Type Site Creation Arteriovenous Graft Upper Extre Angie GREENWOOD, Josef Wallace 03/12/21 Unknown Arm Left Device Identifier Serial Number Lot or Batch Number Manufacturing Date Expiration Date Distinct Identification Code MRI Safety Implantable Status Assigning Authority Unknown [id number] Unknown Unknown 09/26/25 Unknown Unknown Active Unknown Admission evaluation note * Sweta GREENWOOD, Jaiden D: PERFORM Event Display: Admission Note Authored Date: [id number] Patient: ??RONI VIRAMONTES ? Age:??52 Years?Sex:??Male?:??1970?? Chief Complaint/Reason for Consultation Left abdominal pain with Shortness of breath History of Present Illness 52-year-old gentleman with past medical history of end-stage renal disease status post donor transplant with failed graft and currently on dialysis Friday schedule, chronic hyperkalemia on Lokelma on nondialysis days, diabetes on insulin pump, heart failure with reduced EF, coronary artery disease, hypertension, hyperlipidemia, glaucoma who presents to the hospital with complaints of left abdominal pain of 3 to 4 days duration. ??Patient reports having regular bowel movement and last bowel movement 2 days ago. ??Denies any melena or bright red bleeding per rectum or nausea vomiting associated with it. ??Patient also endorses shortness of breath which has been going on for last couple of days. ??He reports going to the dialysis regularly and not drinking water excessively. ?Patient denies any dysuria or chest pain or fever/chills, or focal weakness in armsor legs or dizziness or syncope. ??Patient remained afebrile on presentation with stable vitals. ??Labs significant for hemoglobin of 10.2 which has been stable since previous discharge. ??Potassium 4.9, creatinine 9.8, AST ALT significantly elevated 670/434. ??Normal bilirubin, procalcitonin 0.55,NT proBNP 15 K, troponins 81 followed by 79 essentially remained flat, EKG does not show any ST segment elevation or T wave inversions. ??Patient had CT chest abdomen pelvis done with contrast which did not show any PE however patient had unchanged scattered groundglass and tree-in-bud opacities within the lungs also there was mild gallbladder wall thickening with pericholecystic fluid. ??LFTs are deranged but this is in setting of being on atorvastatin. ??Also found to have 1.6 cm right thyroid nodule and mild diffuse esophagitis ?? Of note patient was admitted and discharged on 08/29/2022 with lower extremity swelling and ??underwent dialysis and was not found to have DVT. ??At that point patient also complained of shortness of breath but chest x-ray did not show any edema and PE was ruled out. ??Chest CT was concerning for infection therefore patient was discharged on 7 days of doxycycline. Objective Measurements?? Height: 173 cm (09/04/22) Weight: 105 kg (09/04/22) Dry Weight: 105 kg (09/04/22) Body Mass Index:??35.08 kg/m2??Critical (09/04/22) ? Vital Signs?? Temperature: 97.9 DegF (09/04/22 07:40:00) Temperature Route: Oral (09/04/22 07:40:00) Pulse Rate: 65 bpm (09/04/22 07:40:00) Respiratory Rate: 18 br/min (09/04/22 07:40:00) Systolic Blood Pressure: 137 mm Hg (09/04/22 07:40:00) Diastolic Blood Pressure:??87 mm Hg??High (09/04/22 07:40:00) Blood pressure sites: Arm, right (09/04/22 07:40:00) Mean Arterial Pressure: 104 mm Hg (09/04/22 07:40:00) Pulse Pressure: 50 mm Hg (09/04/22 07:40:00) Oxygen Saturation: 97 % (09/04/22 07:40:00) Mode of Delivery (Oxygen): Room air (09/04/22 02:19:00) Early Warning Score: 2 (09/04/22 10:01:16) ? Intake/Output? 09/02 16:35 09/04 07:00 09/03 07:00 09/02 07:00 09/01 07:00 ?? 09/04 10:12 09/04 10:12 09/04 06:59 09/03 06:59 09/02 06:59 Intake ?360 ?360 ?0 ?0 ?0 Output ?0 ?0 ?0 ?0 ?0 Net Total ?360 ?360 ?0 ?0 ?0 ? Physical Exam General: Is appears comfortable in no distress HEENT: ??mucous mucous membranes appear wet, PERRLA Cardiovascular: S1-S2 heard no murmurs appreciated Respiratory: CTA without any wheezing or crackles anteriorly GI: Abdomen nontender to palpation, no distention, no obvious hepatosplenomegaly Neuro: AOx3 plus date of , able to raise all extremities on commands Psych: Appears calm without any agitation ? (09/03/2022 22:[address] Abd/Pelvis W/ IV Contrast Only) IMPRESSION:? 1. No evidence of pulmonary embolism. ?? 2. Unchanged scattered groundglass and tree-in-bud opacities within the lungs. There are areas of bronchiolectasis especially within the bilateral upper lobes suggesting underlying chronic interstitial lung disease such as smoking-related versus hypersensitivity pneumonitis. Underlying bronchiolitis cannot be excluded in the appropriate clinical setting. ?? 3. There is mild gallbladder wall thickening with pericholecystic fluid which could represent earlyacute cholecystitis. Further evaluation of the right upper quadrant ultrasound can be considered ifclinical suspicion for acute cholecystitis. ?? 4. Mild diffuse esophagitis. ?? 5. 1.6 cm right thyroid lobe nodule should be further evaluated with nonemergent ultrasound ACR guidelines. ?? 6. Hepatic steatosis. ?? 7. Periumbilical and right inguinal skin thickening. Please correlate with physical examination findings to exclude cellulitis. ?? 8. Additional chronic incidental findings. ?? [1] Assessment/Plan 52-year-old gentleman with past medical history of end-stage renal disease status post donor transplant with failed graft and currently on dialysis Friday schedule, chronic hyperkalemia on Lokelma on nondialysis days, diabetes on insulin pump, heart failure with reduced EF, coronary artery disease, hypertension, hyperlipidemia, glaucoma who presents to the hospital with complaints of left abdominal pain of 3 to 4 days duration ? Diagnoses # ??Abdominal pain in male ??(R10.9): -Patient without symptoms of diarrhea or nausea vomiting, CT abdomen without contrast??unrevealing- -unclear etiology, continue to monitor, patient is able to tolerate diet well ? # ??Thickening of wall of gallbladder with pericholecystic fluid ??(K82.8): # ??Elevated liver enzymes ??(R74.8) -Elevated liver enzymes in setting of??atorvastatin, hold atorvastatin -CT scan concerning for cholecystitis however patient does not have right upper quadrant tendernessand is able to tolerate diet okay Will check right upper quadrant ultrasound-May need surgical consult ?? # Scattered Ground glass opacities in lungs : -Unchanged from previous admission in spite of being discharged on doxycycline??concern for??smoking-related??interstitial lung disease versus hypersensitivity pneumonitis We will get opinion from pulmonology- We will continue doxycycline todaywhich will be the 7th ??day??from previous??discharge??day. ? # ??ESRD on dialysis ??(N18.6): # ?Transplanted kidney present ??(Z94.0):?? Patient appears mildly volume overloaded on exam, patient with pedal edema??but no crackles -RTANE??consulted -Continue Lokelma??and sevelamer??and calcitriol and Cinacalcet and mycophenolate??per home meds ? # Heart failure, systolic and diastolic, chronic ??(I50.42) : Does not appear grossly decompensated, mild pedal edema -proBNP 15 K -Volume removal through dialysis, continue metoprolol, continue Lasix -No TIFFANY/ARB given renal dysfunction ? # CAD (coronary artery disease) ??(I25.10): Patient reports no chest pain, EKG??nonischemic??patient reports being on aspirin Plavix both -Per medication list??however recent discharged home??only on Plavix. ??May need to clarify. ?? -We will hold aspirin and Plavix until gallbladder??results obtained just in case patient needs surgery ? # Diabetes mellitus ??(E11.9):??Patient is on??insulin pump, bids consulted ?? # ??Hypertension ??(I10) ?? # Thyroid nodule ??(E04.1) : Check TSH, if normal will need to follow-up outpatient with endocrinology ?? # ??Esophagitis ??(K20.90) : Continue Protonix 40 twice daily, outpatient GI follow-up ?? # ?D-dimer, elevated ??(R79.89) : CT PE negative for PE, will check venous ultrasound??of legs??to rule out DVT??given significantly elevated D-dimer ?? # ??Severe obesity (BMI 35.0-39.9) with comorbidity ??(E66.01): Outpatient follow-up with PCP ?? Diet:??Renal diet, will need to be n.p.o. for ??right upper quadrant ultrasound Code status :??Full code, Santiago Nazario patient's friend??[phone] is the HCP DVT prophylaxis :??Heparin Disposition: Floor??peripheral IV Lines : PIV Labs :??Ordered ? Discharge Planning:??pending improvement post dialysis ?Order Date/Time ??Order Action ??Order Name ??Order Detail ??09/04/2022 10:10 ??Order ??Doxycycline 100 mg Tablet ??100 mg, By Mouth, Every 12 hours ??09/04/2022 10:09 ??Order ??Consult [facility] Diabetes ([facility]) ??Consultation, Patient on insulin pump, 09/04/22 10:09:00 EST ??09/04/2022 10:08 ??Order ??Tamsulosin 0.4 mg Capsule ??0.4 mg, capsule, By Mouth, Daily at bedtime ??09/04/2022 10:07 ??Order ??Tamsulosin 0.4 mg Capsule ??0.4 mg, capsule, By Mouth, Daily at bedtime ??09/04/2022 10:07 ??Order ??Sodium Zirconium 10 Gm Packet ??10 Gm, 1 pack/packet, By Mouth, Every Friday, Friday and Friday ??09/04/2022 10:06 ??Order ??Sevelamer Carbonate 800 mg Tablet ??800 mg, tablet, By Mouth, 3 times a day with meals ??09/04/2022 10:06 ??Order ??Pantoprazole 40 mg EC Tablet ??40 mg, By Mouth, 2 times a day ??09/04/2022 10:06 ??Order ??Mycophenolate Sodium 180mg ER Tablet ??540 mg, tablet, By Mouth, 2 times a day ??09/04/2022 10:06 ??Order ??Metoprolol 100 mg XL Tablet ??100 mg, tablet, By Mouth, Daily ??09/04/2022 10:05 ??Order ??Latanoprost 0.005% Ophthalmic Solution ??1 drops, Eyes, Both, Daily at bedtime ??09/04/2022 10:04 ??Order ??Gabapentin 300 mg Capsule ??300 mg, capsule, By Mouth, Daily at bedtime ??09/04/2022 10:04 ??Order ??Furosemide 80 mg Tablet ??80 mg, tablet, By Mouth, Daily ??09/04/2022 10:04 ??Order ??Folic Acid 1 mg Tablet ??1 mg, tablet, By Mouth, Daily ??09/04/2022 10:04 ??Order ??Vitamin B-12 ??1000 mcg Tablet ??1,000 mcg, tablet, By Mouth, Daily ??09/04/2022 10:03 ??Order ??Calcitriol 0.25 mcg Capsule ??1.5 mcg, By Mouth, Daily ??09/04/2022 10:03 ??Order ??Brimonidine 0.2% Ophthalmic Solution ??0.6 %, 3 drops, Eyes, Both, 2 times a day ??09/04/2022 10:02 ??Order ??Aspirin 81 mg EC Tablet ??81 mg, tablet, By Mouth, Daily ??09/04/2022 10:02 ??Order ??Albuterol 0.083% Inhalation Solution ??2.5 mg, 3 mL, BAND Nebulizer, Every 4 hours, PRN: Wheezing/Shortness of Breath ??09/04/2022 09:57 ??Order ??Consult Case Management ??Reason: Discharge Planning, 09/04/22 9:57:00 EST ??09/04/2022 09:57 ??Order ??Full Resuscitation ??Full Resuscitation, 09/04/22 9:57:00 EST ??09/04/2022 09:57 ??Order ??OT Eval Treat ??Prob: Endurance, Goal: ADL-Self Care/Function Mobility-Improve, Weight Bearing: As Tolerated, 09/04/22 9:57:00 EST ??09/04/2022 09:57 ??Order ??PT Eval Treat ??Prob: Endurance, Goal: Ambulation-Improve, Weight Bearing: As Tolerated, 09/04/22 9:57:00 EST ??09/04/2022 09:57 ??Order ??Provide Smoking Cessation Information ??09/04/22 9:57:00 EST ??09/04/2022 09:57 ??Order ??Risk of Venous Thromboembolism ??MODERATE Risk, 09/04/22 9:57:00 EST ??09/04/2022 09:55 ??Order ??US RUQ ??JONG, Reason for Exam: Cholecystitis, C/Q: Cholecystitis, Patient has IV, 09/04/22 9:55:00 EST ??09/04/2022 08:34 ??Order ??Glucose POC ??Routine, 09/04/22 8:33:00 EST ??09/04/2022 07:32 ??Order ??Magnesium Level ??JONG, 09/04/22 7:32:00 EST ??09/04/2022 07:32 ??Order ??Phosphorus Level ??JONG, 09/04/22 7:32:00 EST ??09/04/2022 07:32 ??Order ??Procalcitonin Level ??JONG, 09/04/22 7:32:00 EST ??09/04/2022 07:32 ??Order ??Comprehensive Metabolic Panel ??JONG, 09/04/22 7:32:00 EST ??09/04/2022 07:32 ??Order ??CBC ??JONG, 09/04/22 7:32:00 EST ??09/04/2022 07:15 ??Discontinue ??Covering Physician/LAKEISHA Beeper ??Pager Number: [phone] until admitted, 09/04/22 0:05:00 EST ??09/04/2022 07:15 ??Order ??Change Attending, /DO ??Sweta GREENWOOD, Jaiden Elder, 09/04/22 7:15:00 EST ? Important Psychosocial and Contextual Factors?? Important Psychosocial and Contextual factors -- No patient assets and stressors documented during this encounter ?? Histories Allergies Allergies ?(Active and Proposed Allergies [...] races ? Past Medical History/Problem List Active Problems??(9) CAD (coronary artery disease) Chronic kidney disease (CKD) Chronic systolic congestive heart failure Diabetes mellitus type 1 Foot pain Hypertension Neuropathy Severe obesity (BMI 35.0-39.9) with comorbidity Transplanted kidney present ? Past Surgical History No surgery history documented. ? Social History Alcohol Details:??Use: Never. Substance Abuse Details:??Use: Never. Tobacco Details:??Never smoker ? Psychosocial History ? Family History No family history recorded. ? Stroke Treatment Details Service Categories #1: Physical Therapy, Correction ?? Medications Home Medications Albuterol (albuterol 0.083% inhalation solution)?3?Milliliter?2.5?Milligram?Inhalation?Every 4 hours?as needed?Wheezing/Shortness of Breath?for 30?Days Aspirin (aspirin 81 mg oral delayed release tablet)?81?Milligram?1?tablet?By Mouth?Daily?for 30?Days Atorvastatin (atorvastatin 40 mg oral tablet)?1?tab(s)?40?Milligram?By Mouth?Daily [...] Sliding Scale Comments >>Call if less than [id number] - 140 ?? 8 [id number] - 180 ?? 9 units 181 - 220 ?? 10 units 221 - 260 ?? 11 units 261 - 300 ?? 12units 301 - 340 ?? 13 units 341 - 380 ?? 14 units 381 - 400 ?? 15 - 440 ?? 18 units... Latanoprost Ophthalmic [...] Mouth?Daily at bedtime ? Inpatient Medications Medications (30) Active SCHEDULED: (17) Brimonidine 0.2% Ophthalmic Solution (brimonidine 0.2% ophthalmic solution) ??0.6 % 3 drops, Eyes, Both, 2 times a day Calcitriol 0.25 mcg Capsule (calcitriol 0.25 mcg oral capsule) ??1.5 mcg, By Mouth, Daily Doxycycline 100 mg Tablet (Doxycycline Tablet) ??100 mg, By Mouth, Every 12 hours Folic Acid 1 mg Tablet (folic acid 1 mg oral tablet) ??1 mg, By Mouth, Daily Furosemide 80 mg Tablet (furosemide 80 mg oral tablet) ??80 mg, By Mouth, Daily Gabapentin 300 mg Capsule (gabapentin 300 mg oral capsule) ??300 mg, By Mouth, Daily at bedtime Heparin 5000 units/mL Inj (1 mL) (Heparin Inj) ??5,000 units 1 mL, Subcutaneous Injection, 3 times a day Insulin Lispro 100 units/mL Inj (3mL) (Insulin LISPRO Scale) ??3-15 units, Subcutaneous Injection, 3 times a day before meals Latanoprost 0.005% Ophthalmic Solution (Xalatan 0.005% solution) ??1 drops, Eyes, Both, Daily at bedtime Metoprolol 100 mg XL Tablet (metoprolol 100 [...] with meals Sodium Zirconium 10 Gm Packet (Lokelma Packet) ??10 Gm 1 pack/packet, By Mouth, Every Friday, Friday and Friday Tamsulosin 0.4 mg Capsule (tamsulosin 0.4 mg oral capsule) ??0.4 mg, By Mouth, Daily at bedtime Vitamin B-12 ??1000 mcg Tablet (cyanocobalamin 1000 mcg oral tablet) ??1,000 mcg, By Mouth, Daily CONTINUOUS: (0) PRN: (13) Acetaminophen 325 mg Tablet (Acetaminophen Tablet) ??650 mg, By Mouth, Every 4 hours Albuterol 0.083% Inhalation Solution (Albuterol 0.083% inhalation fam) ??2.5 mg 3 mL, BAND Nebulizer, Every 4 hours Dextromethorphan-Guaifenesin 20 mg-200 mg/10 mL Liqu UD (Robitussin DM Liquid) ??10 mL, By Mouth, Every 4 hours Dextrose Inj Syringe (Dextrose 50% Inj Syringe (25Gm)) ??12.5 Gm, IV Push Slowly, Every 20 minutes Dextrose Inj Syringe (Dextrose 50% Inj Syringe (25Gm)) ??25 Gm, IV Push Slowly, Every 15 minutes Glucagon 1 mg Inj (Glucagon Inj) ??1 mg, Intramuscular, Once Glucose 40% Gel (15 Gm) (Glucose Gel) ??15 Gm, By Mouth, Every 20 minutes Glucose 40% Gel (15 Gm) (Glucose Gel) ??30 Gm, By Mouth, Every 20 minutes Melatonin 3 mg Tablet (Melatonin Tablet) ??3 mg, By Mouth, Daily at bedtime NaCl 0.9% Flush 3ml (NaCL 0.9% Flush) ??3 mL, IV Push, Every 8 hours Polyethylene Glycol 17 Gm Powder (MiraLax Powder) ??17 Gm 1 pack/packet, By Mouth, Daily Senna 8.6 mg / Docusate 50 mg tablet (Docusate/Senna Tablet) ??1 tablet, By Mouth, 2 times a day Simethicone 80 mg Chewable Tablet (Simethicone Tablet) ??80 mg, Chew, 3 times a day ? Results Recent Labs BLOOD COUNT & DIFF WBC 5.6 k/mm3 ()?? 09/04/2022 08:58 RBC 3.52 m/mm3 (Low)?? 09/04/2022 08:58 Hgb 10.2 Gm/dL (Low)?? 09/04/2022 08:58 Hct 33.5 % (Low)?? 09/04/2022 08:58 MCV 95.2 femtoliters (High)?? 09/04/2022 08:58 MCH 29.0 pg ()?? 09/04/2022 08:58 MCHC 30.4 g/dL (Low)?? 09/04/2022 08:58 Platelet Count 180 k/mm3 ()?? 09/04/2022 08:58 RDW-SD 62.9 femtoliters (High)?? 09/04/2022 08:58 MPV 10.4 femtoliters ()?? 09/04/2022 08:58 Nucleated RBC (Automated) 0.4 #/100 WBC'S ()?? 09/04/2022 08:58 Abs. NRBC 0.0 k/mm3 ()?? 09/04/2022 08:58 ?? CARDIAC Nt-Probnp 49024 pg/mL (High)?? 09/03/2022 18:24 High Sensitivity Troponin (HSTnT) 79 ng/L (Critical)?? 09/03/2022 21:07 ?? CHEM GENERAL Sodium 139 mmol/L ()?? 09/04/2022 08:58 Potassium 4.9 mmol/L ()?? 09/04/2022 08:58 Chloride 96 mmol/L (Low)?? 09/04/2022 08:58 Bicarbonate Level 21 mmol/L (Low)?? 09/04/2022 08:58 Anion Gap 22 (High)?? 09/04/2022 08:58 Glucose Level 82 mg/dL ()?? 09/04/2022 08:58 Glucose, POC 75 mg/dL ()?? 09/04/2022 08:33 BUN 62 mg/dL (High)?? 09/04/2022 08:58 Creatinine-Blood 9.8 mg/dL (High)?? 09/04/2022 08:58 Estimated GFR Creatinine 6 ML/MIN/1.73 M2 ()?? 09/04/2022 08:58 Calcium 6.0 mg/dL (Low)?? 09/04/2022 08:58 Phosphorus 5.4 mg/dL (High)?? 09/04/2022 08:58 Magnesium 2.1 mg/dL ()?? 09/04/2022 08:58 Protein, Total 7.3 Gm/dL ()?? 09/04/2022 08:58 Albumin 4.4 Gm/dL ()?? 09/04/2022 08:58 AG Ratio 1.5 ()?? 09/04/2022 08:58 Alkaline Phosphatase 212 units/L (High)?? 09/04/2022 08:58 AST (SGOT) 670 units/L (High)?? 09/04/2022 08:58 ALT (SGPT) 434 units/L (High)?? 09/04/2022 08:58 Bilirubin, Total 0.9 mg/dL ()?? 09/04/2022 08:58 ?? COAG D-Dimer 15.97 mg/L FEU (High)?? 09/03/2022 18:24 ?? HEME OTHER Hold Lavender Top SPECIMEN DISCARDED AFTER 24 HOURS. ()?? 09/03/2022 18:24 Hold Blue Top SPECIMEN DISCARDED AFTER 4 HOURS. ()?? 09/03/2022 21:19 ?? MISC. CHEMISTRY Procalcitonin 0.55 ng/mL ()?? 09/04/2022 08:58 Hold Gel Top SPECIMEN DISCARDED AFTER 1 WEEK ()?? 09/03/2022 21:19 ?? VIROLOGY Influenza A PCR NEGATIVE ()?? 09/03/2022 17:50 Influenza B PCR NEGATIVE ()?? 09/03/2022 17:50 RSV PCR NEGATIVE ()?? 09/03/2022 17:50 COVID-19 PCR Specimen Source NASAL ()?? 09/03/2022 17:50 COVID-19 PCR Result NEGATIVE ()?? 09/03/2022 17:50 ? Abnormal Labs ?? BLOOD COUNT & DIFF ??Abs. NRBC ??0.0 k/mm3 () ??09/04/2022 08:58 ??Hct ??33.5 % (Low) ??09/04/2022 08:58 ??Hgb ??10.2 Gm/dL (Low) ??09/04/2022 08:58 ??MCHC ??30.4 g/dL (Low) ??09/04/2022 08:58 ??MCV ??95.2 femtoliters (High) ??09/04/2022 08:58 ??Nucleated RBC (Automated) ??0.4 #/100 WBC'S () ??09/04/2022 08:58 ??RBC ??3.52 m/mm3 (Low) ??09/04/2022 08:58 ??RDW-SD ??62.9 femtoliters (High) ??09/04/2022 08:58 ? CARDIAC ??High Sensitivity Troponin (HSTnT) ??79 ng/L (Critical) ??09/03/2022 21:07 ??Nt-Probnp ??02964 pg/mL (High) ??09/03/2022 18:24 ? CHEM GENERAL ??AG Ratio ??1.5 () ??09/04/2022 08:58 ??ALT (SGPT) ??434 units/L (High) ??09/04/2022 08:58 ??AST (SGOT) ??670 units/L (High) ??09/04/2022 08:58 ??Alkaline Phosphatase ??212 units/L (High) ??09/04/2022 08:58 ??Anion Gap ??22 (High) ??09/04/2022 08:58 ??BUN ??62 mg/dL (High) ??09/04/2022 08:58 ??Bicarbonate Level ??21 mmol/L (Low) ??09/04/2022 08:58 ??Calcium ??6.0 mg/dL (Low) ??09/04/2022 08:58 ??Chloride ??96 mmol/L (Low) ??09/04/2022 08:58 ??Creatinine-Blood ??9.8 mg/dL (High) ??09/04/2022 08:58 ??Estimated GFR Creatinine ??6 ML/MIN/1.73 M2 () ??09/04/2022 08:58 ??Phosphorus ??5.4 mg/dL (High) ??09/04/2022 08:58 ? COAG ??D-Dimer ??15.97 mg/L FEU (High) ??09/03/2022 18:24 ? HEME OTHER ??Hold Blue Top ??SPECIMEN DISCARDED AFTER 4 HOURS. () ??09/03/2022 21:19 ??Hold Lavender Top ??SPECIMEN DISCARDED AFTER 24 HOURS. () ??09/03/2022 18:24 ? MISC. CHEMISTRY ??Hold Gel Top ??SPECIMEN DISCARDED AFTER 1 WEEK () ??09/03/2022 21:19 ??Procalcitonin ??0.55 ng/mL () ??09/04/2022 08:58 ? VIROLOGY ??COVID-19 PCR Specimen Source ??NASAL () ??09/03/2022 17:50 ??COVID-19 PCR Result ??NEGATIVE () ??09/03/2022 17:50 ??Influenza A PCR ??NEGATIVE () ??09/03/2022 17:50 ??Influenza B PCR ??NEGATIVE () ??09/03/2022 17:50 ??RSV PCR ??NEGATIVE () ??09/03/2022 17:50 ? Note: Critical results are displayed in red. ? Blood Glucose Trend Glucose Level: 82 mg/dL (09/04/22 08:58:00) Glucose, POC: 75 mg/dL (09/04/22 08:33:00) Glucose, POC:??51 mg/dL??Low (09/04/22 07:45:00) Glucose, POC: 93 mg/dL (09/04/22 03:37:00) ? Coagulation Profile D-Dimer:??15.97 mg/L FEU??High (18:24) ?? LFT Albumin: 4.4 Gm/dL (08:58) Alkaline Phosphatase:??212 units/L??High (08:58) ALT (SGPT):??434 units/L??High (08:58) AST (SGOT):??670 units/L??High (08:58) Bilirubin, Total: 0.9 mg/dL (08:58) ?? Urinalysis?? No qualifying data available. ?? Microbiology ?? COVID-19, RSV, and Flu A/B, Rapid PCR?? Completed?? Source: Nasal Body Site: Nose Collected Dt/Tm: 09/03/2022 17:20 Last Updated Dt/Tm: 09/03/2022 19:23 ? Cardiology Labs Nt-Probnp:??63865 pg/mL??High (09/03/22 18:24:00) High Sensitivity Troponin (HSTnT):??79 ng/L??Critical (09/03/22 21:07:00) High Sensitivity Troponin (HSTnT):??81 ng/L??Critical (09/03/22 17:21:00) ?? Blood Gases?? No qualifying data available. ?? [1]??CT Abd/Pelvis W/ IV Contrast Only; Roque GREENWOOD, Freemanrim 09/03/2022 22:55 EST EKG study * Event Display: EKG Authored Date: * Event Display: ECG 12-Lead Authored Date: [id number] Please click on pdf link to open report * Event Display: ECG 12-Lead Authored Date: [id number] Ventricular Rate: 63 BPM Atrial Rate: 63 BPM P-R Interval: 202 ms QRS Duration: 88 ms Q-T Interval: 490 ms QTC Calculation(Bazett): 501 ms P [place]: 48 degrees R [place]: 4 degrees T [place]: 27 degrees Critical Test Result: Long QTc Normal sinus rhythm Prolonged QT Abnormal ECG When compared with ECG of 02-SEP-2022 18:05, MANUAL COMPARISON REQUIRED, DATA IS UNCONFIRMED Confirmed by HARLEY XIAO MD ([id number]) on 09/04/2022 12:05:31 PM [place]: HARLEY XIAO MD Note * Flakita Vasques RN: PERFORM Event Display: Discharge/Transfer Note Hospital Authored Date: [id number] Nursing Discharge Note Entered On: 09/06/2022 14:42 EST Performed On: 09/06/2022 14:41 EST by Flakita Vasques RN Nursing Discharge Note 2 Discharge Time : 09/06/2022 14:30 EST Discharge Level of Care at Discharge : Home/Long-Term/Foster Care Patient Left Unit Via : Chair Van Patient Accompanied Off Unit with : Ambulance/Chair Van Personnel Handover Given to Transport Personnel : Yes DC Instructions Provided & Signed by Pt : Yes Patient Understands D/C Instructions : Yes Patient Instructions Discharge Signed : Yes Did Pt have Specialty Bed or Wound Vac : No Flakita Vasques RN - 09/06/2022 14:41 EST * Harshal GREENWOOD, Cathy Omre: PERFORM Event Display: Discharge/Transfer Note Hospital Authored Date: [id number] Patient: ??RONI VIRAMONTES ? Age:??52 Years?Sex:??Male?:??1970?? Patient Information Discharge Location: B Primary Care Physician: Krishna Tapia MD Admit Date/Time: 09/04/22 06:00 Discharge Date:??09/06/2022 11:05 Discharge Disposition Discharge Disposition: Home: No Services Discharge Diagnosis Abdominal pain in male (R10.9) Thickening of wall of gallbladder with pericholecystic fluid (K82.8) ESRD on dialysis (N18.6) CAD (coronary artery disease) (I25.10) Transplanted kidney present (Z94.0) Hypertension (I10) Diabetes mellitus (E11.9) Elevated liver enzymes (R74.8) Thyroid nodule (E04.1) Esophagitis (K20.90) D-dimer, elevated (R79.89) Heart failure, systolic and diastolic, chronic (I50.42) Severe obesity (BMI 35.0-39.9) with comorbidity (E66.01) Swelling of lower leg (M79.89) Diabetes mellitus type 1 Hypertension Kidney Biopsy-Borderline ACR, C4d neg esrd r/t diabetes ?? _ Discharge Medications Albuterol (albuterol 0.083% inhalation solution)?3?Milliliter?2.5?Milligram?Inhalation?Every 4 hours?as needed?Wheezing/Shortness of Breath?for 30?Days Aspirin (aspirin 81 mg oral delayed release tablet)?81?Milligram?1?tablet?By Mouth?Daily?for 30?Days Brimonidine Ophthalmic (brimonidine 0.2% ophthalmic solution)?1?Drops?Eyes, Both?2 times a day Calcitriol (calcitriol 0.5 mcg oral capsule)?3?capsule?1.5?Microgram?By Mouth?Every Friday, and Friday?for 30?Days Cinacalcet (Sensipar 30 mg oral tablet)?1?tab(s)?30?Milligram?By Mouth?Daily Cyanocobalamin (cyanocobalamin 1000 mcg oral tablet)?1,000?Microgram?1?tablet?By Mouth?Daily [...] Sliding Scale Comments >>Call if less than [id number] - 140 ?? 8 [id number] - 180 ?? 9 units 181 - 220 ?? 10 units 221 - 260 ?? 11 units 261 - 300 ?? 12units 301 - 340 ?? 13 units 341 - 380 ?? 14 units 381 - 400 ?? 15 - 440 ?? 18 units... Latanoprost Ophthalmic [...] mg oral capsule)?0.4?Milligram?1?capsule?By Mouth?Daily at bedtime ? Medications Started None Medications Discontinued Atorvastatin Doses Changed None PCP Follow-Up/Heads-Up Please follow up LFTs as outpatient Future Appointments Friday 1:00 PM EST ?? With: Donis King Where: [facility] 2022 4:00 PM EST ?? With: Kailey GREENWOOD, Rachel Cross Where: [facility] [address] [place] [address]- Friday 11:15 AM EDT ?? With: Where: [facility] [address] [place] [id number]- Friday 9:00 AM EDT ?? With: Vidal GREENWOOD, Vincent Hughes Where: [facility] [address] [place] [id number]- Hospital Course 52-year-old gentleman with past medical history of end-stage renal disease status post donor transplant with failed graft and currently on dialysis Friday schedule, chronic hyperkalemia on Lokelma on nondialysis days, diabetes on insulin pump, heart failure with reduced EF, coronary artery disease, hypertension, hyperlipidemia, glaucoma who presents to the hospital with complaints of left abdominal pain of 3 to 4 days duration ?? # Abdominal pain in male (R10.9): ??-Patient without symptoms of diarrhea or nausea vomiting, ??CT abdomen without contrast unrevealing- ??-unclear etiology, continue to monitor, patient is able to tolerate diet well CT does show severe pancreatic atrophy. ?pancreatitis contributing to the presentation ?? # Thickening of wall of gallbladder with pericholecystic fluid (K82.8): # Elevated liver enzymes (R74.8) ??-Elevated liver enzymes in setting of atorvastatin, hold atorvastatin ??-CT scan concerning for cholecystitis however patient does not have right upper quadrant tenderness and is able to tolerate diet okay RUQ US showed: No evidence of acute cholecystitis. Mildly echogenic liver likely representing hepatic steatosis. Atrophic right kidney again demonstrated. LFTs are improving, will hold atorvastatin on discharge ?? # Scattered Ground glass opacities in lungs : ??-Unchanged from previous admission in spite of being discharged on doxycycline concern for smoking-related interstitial lung disease versus hypersensitivity pneumonitis ??We will get opinion from pulmonology- Completed 7 days of doxycyline ?? # ESRD on dialysis (N18.6): # Transplanted kidney present (Z94.0): Patient appears mildly volume overloaded on exam, patient with pedal edema but no crackles ??-RTANE consulted ??-Continue Lokelma and sevelamer and calcitriol and Cinacalcet and mycophenolate per home meds ?? # Heart failure, systolic and diastolic, chronic (I50.42) : ??Does not appear grossly decompensated, mild pedal edema ??-proBNP 15 K ??-Volume removal through dialysis, continue metoprolol, continue Lasix ??-No TIFFANY/ARB given renal dysfunction ?? # CAD (coronary artery disease) (I25.10): Patient reports no chest pain, EKG nonischemic patient reports being on aspirin Plavix both ??-Per medication list however recent discharged home only on Plavix. May need to clarify. ??-We will hold aspirin and Plavix until gallbladder results obtained just in case patient needs surgery ?? # Diabetes mellitus (E11.9): Patient is on insulin pump, bids consulted ?? # Hypertension (I10) ?? # Thyroid nodule (E04.1) : Check TSH, if normal will need to follow-up outpatient with endocrinology ?? # Esophagitis (K20.90) : Continue Protonix 40 twice daily, outpatient GI follow-up ?? # D-dimer, elevated (R79.89) : CT PE negative for PE, will check venous ultrasound of legs to rule out DVT given significantly elevated D-dimer ?? # Severe obesity (BMI 35.0-39.9) with comorbidity (E66.01): Outpatient follow-up with PCP ?? Objective . Physical Exam Not in acute distress Awake and alert Normocephalic, atraumatic Diminished breath sounds Regular rate and rhythm Consultants Renal Pending Results Aspergillus Precipitating Antibodies ordered on 09/05/2022 Bilirubin Total + Direct ordered on 09/06/2022 CBC ordered on 09/05/2022 COVID-19 (2019 Novel Coronavirus) PCR ordered on 09/05/2022 Comprehensive Metabolic Panel ordered on 09/05/2022 Hypersensitivity Pneumonitis Serology ordered on 09/05/2022 Magnesium Level ordered on 09/05/2022 Phosphorus Level ordered on 09/05/2022 Follow-Up Appointments Added Follow Up ?Time Frame ?Comments Krishna Tapia MD?1 week: call to discuss follow up visit Patient Instructions Please do not take atorvastatin Please follow up with PCP and renal Post Discharge Care Activity: Ambulate with assistance ??3 times a day ??unless otherwise specified Code Status: ?? Full Resuscitation Discharge ?09/06/22 11:05:00 EST Discharge Prescriptions ?ePrescribed, ??09/06/22 11:05:00 EST Home Health Face to Face ^HomeHealthFTF Results Discharge Labs BLOOD COUNT & DIFF WBC 5.3 k/mm3 ()?? 09/06/2022 08:32 RBC 3.13 m/mm3 (Low)?? 09/06/2022 08:32 Hgb 8.9 Gm/dL (Low)?? 09/06/2022 08:32 Hct 29.1 % (Low)?? 09/06/2022 08:32 MCV 93.0 femtoliters ()?? 09/06/2022 08:32 MCH 28.4 pg ()?? 09/06/2022 08:32 MCHC 30.6 g/dL (Low)?? 09/06/2022 08:32 Platelet Count 204 k/mm3 ()?? 09/06/2022 08:32 RDW-SD 61.9 femtoliters (High)?? 09/06/2022 08:32 MPV 10.6 femtoliters ()?? 09/06/2022 08:32 Nucleated RBC (Automated) 0.0 #/100 WBC'S ()?? 09/06/2022 08:32 Abs. NRBC 0.0 k/mm3 ()?? 09/06/2022 08:32 Abs. Neut 3.8 k/mm3 ()?? 09/06/2022 08:32 Abs. Lymph 0.4 k/mm3 (Low)?? 09/06/2022 08:32 Abs. Becker 0.9 k/mm3 ()?? 09/06/2022 08:32 Abs. Eo 0.1 k/mm3 ()?? 09/06/2022 08:32 Abs. Baso 0.0 k/mm3 ()?? 09/06/2022 08:32 Neut % 72.0 % ()?? 09/06/2022 08:32 Lymph % 7.9 % (Low)?? 09/06/2022 08:32 Becker % 17.2 % (High)?? 09/06/2022 08:32 Eos % 2.1 % ()?? 09/06/2022 08:32 Baso % 0.4 % ()?? 09/06/2022 08:32 Imm Gran 0.4 % ()?? 09/06/2022 08:32 Abs. Imm Gran 0.0 k/mm3 ()?? 09/06/2022 08:32 ?? CARDIAC Nt-Probnp 73256 pg/mL (High)?? 09/03/2022 18:24 High Sensitivity Troponin (HSTnT) 79 ng/L (Critical)?? 09/03/2022 21:07 ?? CHEM GENERAL Sodium 137 mmol/L ()?? 09/06/2022 08:32 Potassium 4.3 mmol/L ()?? 09/06/2022 08:32 Chloride 94 mmol/L (Low)?? 09/06/2022 08:32 Bicarbonate Level 22 mmol/L ()?? 09/06/2022 08:32 Anion Gap 21 (High)?? 09/06/2022 08:32 Glucose Level 95 mg/dL ()?? 09/06/2022 08:32 Glucose, POC 117 mg/dL (High)?? 09/05/2022 20:29 Hemoglobin A1C (Monitoring) 7.5 % (High)?? 09/05/2022 01:15 BUN 59 mg/dL (High)?? 09/06/2022 08:32 Creatinine-Blood 9.8 mg/dL (High)?? 09/06/2022 08:32 Estimated GFR Creatinine 6 ML/MIN/1.73 M2 ()?? 09/06/2022 08:32 Calcium 6.2 mg/dL (Low)?? 09/06/2022 08:32 Phosphorus 6.1 mg/dL (High)?? 09/06/2022 08:32 Magnesium 1.9 mg/dL ()?? 09/06/2022 08:32 Protein, Total 6.6 Gm/dL ()?? 09/06/2022 08:32 Albumin 3.9 Gm/dL ()?? 09/06/2022 08:32 AG Ratio 1.4 ()?? 09/06/2022 08:32 Alkaline Phosphatase 179 units/L (High)?? 09/06/2022 08:32 Lipase 10 units/L (Low)?? 09/02/2022 17:45 AST (SGOT) 390 units/L (High)?? 09/06/2022 08:32 ALT (SGPT) 455 units/L (High)?? 09/06/2022 08:32 Bilirubin, Total 0.6 mg/dL ()?? 09/06/2022 08:32 Bilirubin, Direct 0.4 mg/dL (High)?? 09/06/2022 08:32 Bilirubin, Indirect 0.2 mg/dL ()?? 09/06/2022 08:32 Lactate 2.1 mmol/L ()?? 09/02/2022 17:46 ? COAG INR 1.2 (High)?? 09/06/2022 08:32 Protime (PT) 12.7 seconds (High)?? 09/06/2022 08:32 APTT 28.7 seconds ()?? 09/06/2022 08:32 D-Dimer 15.97 mg/L FEU (High)?? 09/03/2022 18:24 ?? ENDOCRINE/TUMOR MARKER TSH 6.28 uIU/mL (High)?? 09/05/2022 01:15 T3, Free 1.7 pg/mL (Low)?? 09/05/2022 01:15 ?? HEME OTHER Hold Lavender Top SPECIMEN DISCARDED AFTER 24 HOURS. ()?? 09/03/2022 18:24 Hold Blue Top SPECIMEN DISCARDED AFTER 4 HOURS. ()?? 09/03/2022 21:19 ?? IMMUNOLOGY GENERAL Immunoglobulin IgE 39 IU/mL ()?? 09/05/2022 01:15 ? MISC. CHEMISTRY Procalcitonin 0.55 ng/mL ()?? 09/04/2022 08:58 Hold Gel Top SPECIMEN DISCARDED AFTER 1 WEEK ()?? 09/03/2022 21:19 ?? VIROLOGY Influenza A PCR NEGATIVE ()?? 09/03/2022 17:50 Influenza B PCR NEGATIVE ()?? 09/03/2022 17:50 RSV PCR NEGATIVE ()?? 09/03/2022 17:50 COVID-19 PCR Specimen Source NASAL ()?? 09/03/2022 17:50 COVID-19 PCR Result NEGATIVE ()?? 09/03/2022 17:50 COVID-19 POC Result NEGATIVE ()?? 09/02/2022 16:53 ? Test Name Test Result Date/TimeWBC 5.3 k/mm3 09/06/2022 08:32 EST Hgb 8.9 Gm/dL (Low) 09/06/2022 08:32 EST Hct 29.1 % (Low) 09/06/2022 08:32 EST Platelet Count 204 k/mm3 09/06/2022 08:32 EST INR 1.2 (High) 09/06/2022 08:32 EST Protime (PT) 12.7 seconds (High) 09/06/2022 08:32 EST APTT 28.7 seconds 09/06/2022 08:32 EST Sodium 137 mmol/L 09/06/2022 08:32 EST Potassium 4.3 mmol/L 09/06/2022 08:32 EST Chloride 94 mmol/L (Low) 09/06/2022 08:32 EST Bicarbonate Level 22 mmol/L 09/06/2022 08:32 EST Anion Gap 21 (High) 09/06/2022 08:32 EST Glucose Level 95 mg/dL 09/06/2022 08:32 EST BUN 59 mg/dL (High) 09/06/2022 08:32 EST Creatinine-Blood 9.8 mg/dL (High) 09/06/2022 08:32 EST Estimated GFR Creatinine 6 ML/MIN/1.73 M2 09/06/2022 08:32 EST Calcium 6.2 mg/dL (Low) 09/06/2022 08:32 EST Phosphorus 6.1 mg/dL (High) 09/06/2022 08:32 EST Magnesium 1.9 mg/dL 09/06/2022 08:32 EST Protein, Total 6.6 Gm/dL 09/06/2022 08:32 EST Albumin 3.9 Gm/dL 09/06/2022 08:32 EST AG Ratio 1.4 09/06/2022 08:32 EST Alkaline Phosphatase 179 units/L (High) 09/06/2022 08:32 EST AST (SGOT) 390 units/L (High) 09/06/2022 08:32 EST ALT (SGPT) 455 units/L (High) 09/06/2022 08:32 EST Bilirubin, Total 0.6 mg/dL 09/06/2022 08:32 EST Bilirubin, Direct 0.4 mg/dL (High) 09/06/2022 08:32 EST Bilirubin, Indirect 0.2 mg/dL 09/06/2022 08:32 EST 45??minutes spent on discharge * Flakita Vasques RN: PERFORM Event Display: Patient Education/Instruction Authored Date: [id number] Inpatient Adult Discharge Instructions [address] [address] Name: RONI VIRAMONTES : 1970 Visit: 09/04/2022 06:00:00 Current Date: 09/06/2022 12:29 Account: [id number] Inpatient Adult Discharge Instructions We would like [...] and their families. Surveys are administered by [employer] ?? If further treatment with your primary care physician or another doctor is recommended, it is important for you to keep the appointment. Call your primary care physician or return to the Emergency Department immediately if your condition worsens, fails to improve, or new symptoms develop. If you need to find a doctor, you can call [facility] [employer] for a referral at [phone] or toll free at [phone] or log in to [email or web address].. ?? You can view and manage your care through the patient portal or by using a health care lakeisha of your choosing. [employer] is a website that allows you to securely view your medical information including your hospital discharge summary, office visit summaries, medications and follow-up visits. You can also request appointments, renew medications, and request access to your medical information using a health care lakeisha of your choosing, or just ask a question. You can enroll at [email or web address] or register during your next office visit. You have been discharged from [facility], Patient Care Unit: S3. If you have any questions regarding these instructions after you leave, please call us and we will be happy to assist you. [facility] Your Care Team Attending Physician Harshal GREENWOOD, Cathy Omer Consulting Providers Julito GREENWOOD, Muna Jameson Discharging Providers Harshal GREENWOOD, Cathy Omer Reason for Admission Left abdominal pain with Shortness of breath Your Diagnosis Thickening of wall of gallbladder with pericholecystic fluid CAD (coronary artery disease) Transplanted kidney present Hypertension ESRD on dialysis Diabetes mellitus Elevated liver enzymes Thyroid nodule Esophagitis D-dimer, elevated Heart failure, systolic and diastolic, chronic Severe obesity (BMI 35.0-39.9) with comorbidity Abdominal pain in male Swelling of lower leg Tests Performed Below is a partial list of the tests performed during your hospitalization. You may have had other tests and procedures not included in this list. Please discuss all test results with your provider. Bilirubin Total + Direct?-- Results Pending -- BNP CBC w/ Differential Comprehensive Metabolic Panel COVID-19 RNA POC COVID-19, RSV, and Flu A/B, Rapid PCR D Dimer Free T3 GLUCOSE POC Hemoglobin A1C (Monitoring) HOLD BLUE TUBE HOLD GEL TUBE HOLD LAVENDER TUBE IgE Level Lactic Acid Level Lipase Magnesium Level Phosphorus Level Procalcitonin Level PT (INR) PTT Troponin T, High Sensitivity TSH CT Abd/Pelvis W/ IV Contrast Only CT Angio Chest RUQ (US) US Doppler Ext Lower Venous Bilat XR Chest 2 Views Frontal and Lat ? You will be contacted within 72 hours with your results. Primary Care Provider Regina GREENWOOD, Krishna Advance Directive Health Care Proxy on File Yes - Health Care Proxy Yes - MOLST No qualifying data available. Discharge Vitals Temperature: 98.3 DegF Height: 173 cm Pulse Rate: 72 bpm Weight: 105 kg Respiratory Rate: 18 br/min Body Mass Index:??35.08 kg/m2??Critical Systolic Blood Pressure: 116 mm Hg Body surface area: 2.25 Diastolic Blood Pressure: 64 mm Hg ?? Oxygen Saturation: 95 % ?? Studies Pending All tests and labs ordered during this hospital stay have been completed unless listed below. Please discuss all pending results with your provider listed above in these instructions. ?? Aspergillus Precipitating Antibodies Bilirubin Total + Direct CBC COVID-19 (2019 Novel Coronavirus) PCR Comprehensive Metabolic Panel Hypersensitivity Pneumonitis Serology Magnesium Level Phosphorus Level What to do next Instructions From Your Doctor Discharge Orders Activity:??Ambulate with assistance 3 times a day unless otherwise specified Code Status:?? Full Resuscitation Scheduled Follow-Up Appointments Friday 1:00 PM EST ?? With: Donis King Where: Rehab Adult Aud 2022 4:00 PM EST ?? With: Kailey GREENWOOD, [facility] Where: Specialty Services [address] [place] [id number]- Friday 11:15 AM EDT ?? With: Where: [facility] [address] [address]- Friday 9:00 AM EDT ?? With: Vidal GREENWOOD [facility] Where: [facility] [address] [facility] [address] [place] [phone]- You Need to Schedule the Following Appointments Follow Up with??Krishna Tapia MD When??Within 1 week: call to discuss follow up visit Where: [address] [place] [address] [place] [address]- Discharge Medications RONI VIRAMONTES :1970 Visit Date:09/04/2022 Medications: Please continue your medications until treatment is completed or stopped by your provider. Medications not listed below should be discontinued. Discuss any questions related to medications with your provider. What How Much When Instructions Next Dose Unchanged Albuterol (albuterol 0.083% inhalation solution) 3 Milliliter Inhalation Every 4 hours as needed for Wheezing/Shortness of Breath Duration: 30 Days as needed Unchanged Aspirin (aspirin 81 mg oral delayed release tablet) 1 tab(s) Oral Daily Duration: 30 Days 09/07 Unchanged Brimonidine Ophthalmic (brimonidine 0.2% ophthalmic solution) 1 Drops Both eyes Twice a day 09/06 PM Unchanged Calcitriol (calcitriol 0.5 mcg oral capsule) 3 capsule Oral Every Friday, and Friday Duration: 30 Days Friday Unchanged Cinacalcet (Sensipar 30 mg oral tablet) 1 tab(s) Oral Daily 09/07 Unchanged Cyanocobalamin (cyanocobalamin 1000 mcg oral tablet) 1 tab(s) Oral Daily 09/07 Unchanged Epoetin Brett 40,000 unit(s) Subcutaneous Injection Every week weekly Unchanged Fluticasone-Salmeterol (Advair Diskus 250 mcg-50 mcg inhalation powder) 1 puff(s) Inhalation Twice a day 09/06 Unchanged Folic Acid (folic acid 1 mg oral tablet) 1 tab(s) Oral Daily 09/07 Unchanged Furosemide (furosemide 80 mg oral tablet) 1 tab(s) Oral Daily today Unchanged Gabapentin (gabapentin 300 mg oral capsule) 1 capsule Oral 3 times a day Duration: 30 Days 09/06 Unchanged Insulin Lispro (insulin lispro 100 u/ [...] on dialysis days (, , Fri) ?? with meals Unchanged Latanoprost Ophthalmic (Xalatan 0.005% solution) 1 Drops Both eyes Daily at Bedtime 09/06 at bedtime Unchanged Magnesium Oxide (magnesium oxide 400 mg oral tablet) See instructions TAKE 2 TABLETS BY MOUTH EVERY DAY ?? 09/07 AM Unchanged Melatonin (melatonin 3 mg oral tablet) 3 Milligram Oral Daily at Bedtime as needed for as needed for insomnia as needed Unchanged Metoprolol (metoprolol 100 mg oral tablet, extended release) 1 tab(s) Oral Daily 09/06 TODAY Unchanged Mycophenolate Sodium (mycophenolic acid 180 mg oral delayed release tablet) 3 tab(s) Oral Twice a day 09/06 TODAY Unchanged Pantoprazole (pantoprazole 40 mg oral delayed release tablet) 40 Milligram Oral Twice a day 09/06 TODay Unchanged Sevelamer (Renvela 800 mg oral tablet) 1 tab(s) Oral 3 times a day with meals with dinner Unchanged sodium zirconium cyclosilicate (sodium zirconium cyclosilicate 10 g oral powder for reconstitution) 10 gram Oral Friday, Friday and Friday dilute w/ 45 ml water, mix well, and drink immediately ?? Friday Unchanged Tamsulosin (tamsulosin 0.4 mg oral capsule) 1 capsule Oral Daily at Bedtime 09/06 at bedtime ?? What How Much When Comments Stop Taking Atorvastatin (atorvastatin 40 mg oral tablet) 1 tab(s) Oral Daily at Bedtime Stop Taking Clopidogrel (clopidogrel 75 mg oral tablet) 1 tab(s) Oral Daily Duration: 30 Days Stop Taking Doxycycline (doxycycline monohydrate 100 mg oral capsule) 1 capsule Oral Every 12 hours Duration: 7 Days Test Results Below is a partial list of the most recent Laboratory test results done prior to this discharge. You may have had other tests and procedures not included in this list. Please discuss all test resultswith your provider. BNP (09/03/2022) ???Nt-Probnp - 72170 pg/mL CBC w/ Differential (09/06/2022) ???WBC - 5.3 k/mm3???RBC - 3.13 m/mm3???Hgb - 8.9 Gm/dL???Hct - 29.1 %???MCV - 93.0 femtoliters???MCH - 28.4 pg???MCHC - 30.6 g/dL???Platelet Count - 204 k/mm3???RDW-SD - 61.9 femtoliters???MPV - 10.6 femtoliters???Nucleated RBC (Automated) - 0.0 #/100 WBC'S???Abs. NRBC - 0.0 k/mm3???Abs. Neut - 3.8 k/mm3???Abs. Lymph - 0.4 k/mm3???Abs. Becker - 0.9 k/mm3???Abs. Eo - 0.1 k/mm3???Abs. Baso - 0.0 k/mm3???Neut % - 72.0 %???Lymph % - 7.9 %???Becker % - 17.2 %???Eos % - 2.1 %???Baso % - 0.4 %???Imm Gran- 0.4 %???Abs. Imm Gran - 0.0 k/mm3 Comprehensive Metabolic Panel (09/06/2022) ???Sodium - 137 mmol/L???Potassium - 4.3 mmol/L???Chloride - 94 mmol/L???Bicarbonate Level - 22 mmol/L???Anion Gap - 21???Glucose Level - 95 mg/dL???BUN - 59 mg/dL???Creatinine-Blood - 9.8 mg/dL???Estimated GFR Creatinine - 6 ML/MIN/1.73 M2???Calcium - 6.2 mg/dL???Protein, Total - 6.6 Gm/dL???Albumin - 3.9 Gm/dL???AG Ratio - 1.4???Alkaline Phosphatase - 179 units/L???AST (SGOT) - 390 units/L???ALT (SGPT) - 455 units/L???Bilirubin, Total - 0.6 mg/dL COVID-19 RNA POC (09/02/2022) ???COVID-19 POC Result - NEGATIVE COVID-19, RSV, and Flu A/B, Rapid PCR (09/03/2022) ???Influenza A PCR - NEGATIVE???Influenza B PCR - NEGATIVE???RSV PCR - NEGATIVE???COVID-19 PCR Specimen Source - NASAL???COVID-19 PCR Result - NEGATIVE D Dimer (09/03/2022) ???D-Dimer - 15.97 mg/L FEU Free T3 (09/05/2022) ???T3, Free - 1.7 pg/mL GLUCOSE POC (09/05/2022) ???Glucose, POC - 117 mg/dL Hemoglobin A1C (Monitoring) (09/05/2022) ???Hemoglobin A1C (Monitoring) - 7.5 % HOLD BLUE TUBE (09/03/2022) ???Hold Blue Top - SPECIMEN DISCARDED AFTER 4 HOURS. HOLD GEL TUBE (09/03/2022) ???Hold Gel Top - SPECIMEN DISCARDED AFTER 1 WEEK HOLD LAVENDER TUBE (09/03/2022) ???Hold Lavender Top - SPECIMEN DISCARDED AFTER 24 HOURS. IgE Level (09/05/2022) ???Immunoglobulin IgE - 39 IU/mL Lactic Acid Level (09/02/2022) ???Lactate - 2.1 mmol/L Lipase (09/02/2022) ???Lipase - 10 units/L Magnesium Level (09/06/2022) ???Magnesium - 1.9 mg/dL Phosphorus Level (09/06/2022) ???Phosphorus - 6.1 mg/dL Procalcitonin Level (09/04/2022) ???Procalcitonin - 0.55 ng/mL PT (INR) (09/06/2022) ???INR - 1.2???Protime (PT) - 12.7 seconds PTT (09/06/2022) ???APTT - 28.7 seconds Troponin T, High Sensitivity (09/03/2022) ???High Sensitivity Troponin (HSTnT) - 79 ng/L TSH (09/05/2022) ???TSH - 6.28 uIU/mL Allergies (NKA means No Known Allergies) Ancef??( trouble breathing ) Lyrica??( mind races ) fentanyl??( trouble breathing ) Problems Active Problems??(15) admit- increased creatinine- ? dehydration?? CAD (coronary artery disease)?? Chronic kidney disease (CKD)?? Chronic systolic congestive heart failure?? donor transplant?? Diabetes mellitus type 1?? esrd r/t diabetes?? Foot pain?? Hypertension?? Kidney Biopsy-Borderline ACR, C4d neg?? Neuropathy?? orchiopexy r/t undescended testicle?? Presence of implanted infusion pump?? Severe obesity (BMI 35.0-39.9) with comorbidity?? Transplanted kidney present?? Education Materials Below is the list of Educational Leaflet Providered with your Discharge Instructions. Valuables and Belongings I fully understand and agree that [facility] accepts no responsibility for all my personal [...] to send valuables and belongings home. ?? Review of Valuable and Belonging List: With patient Date for Pt to Sign Valuables/Belongings: 09/04/22 00:17:00 ?? Other Discharge Information ? Pulmonary Rehab Status?? Pulmonary Rehab Discharge Status?? [...] are strongly encouraged to quit. Please call [employer] [facility] at [phone] or [phone] ([phone]) or log in to [email or web address] for referrals to smoking cessation programs. ?? The National Suicide Prevention Hotline is available 17/03 if you or someone you know needs to find a reason to keep living. By calling 0-474-085-talk (0953) you'll be connected to a skilled, trained counselor at a crisis center in your area. INPATIENT DISCHARGE INSTRUCTIONS SIGNATURE PAGE RONI VIRAMONTES Location:[facility] Registration Date and Time:09/04/2022 06:00 [facility] Primary Care Physician: Krishna Tapia MD, I RONI VIRAMONTES, have received the above patient education materials/instructions and have verbalized understanding. If ambulance or transport services are being used I further acknowledge being given a choice of service. ?? If you need to contact me, please call me at this number: . Patient/Trim Sawyer Name: Patient/Trim Sawyer Signature: Relationship to Patient: Witness Name/Signature: Date: * Flakita Vasques RN: PERFORM Event Display: Patient Education Leaflets Authored Date: [id number] Shortness of Breath (Dyspnea) ?? [id number] Shortness of Breath (Dyspnea) Shortness of breath is the feeling that you can't catch your breath or get enough air. It's also known as dyspnea. Dyspnea can be caused by many different conditions. They include: ??? Acute asthma attack ??? Worsening of chronic lung diseases such as chronic bronchitis and emphysema (COPD) ??? Heart failure. This is when weak heart muscle causes extra fluid to collect in the lungs. ??? Panic attacks or anxiety. Fear can cause rapid breathing (hyperventilation). ??? Pneumonia, or an infection in the lung tissue ??? Exposure to toxic substances, fumes, smoke, or certain medicines ??? Blood clot in the lung (pulmonary embolism). This is often from a piece of blood clot in adeep vein of the leg (deep vein thrombosis) that breaks off and travels to the lungs. ??? Heart attack or heart-related chest pain (angina) ??? Anemia ??? Collapsed lung (pneumothorax) ??? Dehydration ??? Based on your visit today, the exact cause of your shortness of breath is not certain. Your tests don???t show any of the serious causes of dyspnea. You may need other tests to find out if you have aserious problem. It???s important to watch for any new symptoms or symptoms that get worse. Follow up with your healthcare provider as directed. Home care Follow these tips to take care of yourself at home: ??? When your symptoms are better, go back to your usual activities. ??? If you smoke, you should stop. Join a quit-smoking program or ask your healthcare provider for help. ??? Eat a healthy diet and get plenty of sleep. ??? Get regular exercise.Talk with your healthcare provider before starting to exercise, especially if you have other medical problems. ??? Discuss with your healthcare provider about cutting down on the amount of caffeine and stimulants you consume. ?? Follow-up care Follow up with your healthcare provider, or as advised. If tests were done, you will be told if your treatment needs to be changed. You can call as directed for the results. If an X-ray was taken, you will be told of any new findings that may affect your care. ?? Call 911 Shortness of breath may be a sign of a serious medical problem. For example, it may be a problem with your heart or lungs. Call 911 if you have worsening shortness of breath or trouble breathing, especially with any of the symptoms below: ??? Shortness of breath or wheezing ??? Confusion or difficulty waking ??? Fainting or loss of consciousness ??? Fast or irregular heartbeat ??? Coughing up blood ??? Unusual pain in your chest, arm, shoulder, neck, or upper back ??? Unusual sweating ??? Feeling of doom ??? Lips or skin looks blue, purple, or mcpherson in color ??? Feel dizzy ?? When to seek medical advice Call your healthcare provider right away if any of these occur: ??? Redness, pain or swelling in your leg, arm, or other body area ??? Swelling in both legs or ankles ??? Fast weight gain ??? Weakness ??? Fever of 100.4??F (38??C) or higher, or as directed by your healthcare provider ?? Last Reviewed Date: 2021 ?? [id number] The [employer] All rights reserved. This information is not intended as a substitute for professional medical care. Always follow your healthcare professional's instructions. ?? * [employer] , CIS S: TRANSCRIKIMBERLY Khan MD, Barak Díaz: VERIFY Amparo Gonzalez DO: SIGN Event Display: Result: Authored Date: [id number] US RUQ Reason: Elevated liver enzymes. Clinical Question(s): Cholecystitis. COMPARISON: CT abdomen/pelvis 09/03/2022 FINDINGS: Liver: Mildly echogenic parenchyma. No suspicious lesion. Smooth hepatic contour. Main portal vein patent with normal hepatopetal direction of flow. Gallbladder: No gallstones. Trace mobile gallbladder sludge may be present. Normal wall thickness. No pericholecystic fluid. Negative Casillas sign. Biliary Tree: No intrahepatic or extrahepatic bile duct dilation is identified. Common duct measures: 0.3 cm. Pancreas: Partially obscured by overlying bowel gas. No abnormality in the visualized portions of the pancreas. Right kidney: 5.4 cm in length. Severely atrophic with echogenic parenchyma. No hydronephrosis. IMPRESSION: No evidence of acute cholecystitis. Mildly echogenic liver likely representing hepatic steatosis. Atrophic right kidney again demonstrated. I have personally reviewed the images and I agree with this report. WSN: [id number] Ordering Physician: Jaiden Sol Dictated By: Amparo Gonzalez DO Dictated Date/Time: 09/05/22 11:40 a Reviewed By: Barak Khan MD Signed By: Barak Khan MD Signed Date/Time: 09/05/22 11:45 am Transcribed By: AMY Transcribed Date/Time: 09/05/22 11:28 am * Event Display: Cardiac Rhythm Strips Authored Date: * [facility] , CIS S: TRANSCRIBE Kennedy Christian MD: VERIFY Event Display: Result: Authored Date: [id number] Chest 2 Views Frontal and Lat Hx of Present Illness: Dialysis pt, presents to ed with abd distention and discomfort, also reportssob with exertion and at rest lying; Reason: Shortness of Breath; Clinical Question(s): CHF COMPARISON: None. FINDINGS: Exam slightly suboptimal due to soft tissue overlap. LINES AND TUBES: None. LUNGS AND PLEURA: Low lung volumes with mild basilar atelectasis. Lungs are otherwise clear with no consolidation. No pleural effusion. No pneumothorax. HEART, MEDIASTINUM AND IRISH: Heart is at the upper limits of normal for size. Normal mediastinal and hilar contour. BONES AND SOFT TISSUES: No acute abnormality. Vascular stents in the left axilla. IMPRESSION: No acute abnormality. WSN: [id number] Ordering Physician: Lavonne Jama Dictated By: Kennedy Christian MD Dictated Date/Time: 09/03/22 5:58 pm Reviewed By: Kennedy Christian MD Signed By: Kennedy Christian MD Signed Date/Time: 09/03/22 5:58 pm Transcribed By: AMY Transcribed Date/Time: 09/03/22 5:57 pm Hospital Progress note * Marcy Doran RN: PERFORM, SIGN, VERIFY Event Display: Progress Note Hospital Authored Date: [id number] Patient: RONI VIRAMONTES Age: 52 years Sex: Male : 1970 Associated Diagnoses: None Author: Marcy Doran RN Findings Narrative/Incidental Patient tolerated 3.5 hours HD treatment. Blood volume change neg 14.5%. BP 141/77 at end of treatment. pulled 3.5 kg. Left AVG positive bruit and thrill. No s/s infection. Patient stable at end of treatment. . * Alexis Brooke MD: SIGN, MODIFY Wes Lezama: MODIFY, SIGN Wes Lezama: SIGN, VERIFY Wes Lezama: VERIFY, PERFORM Wes Lezama: PERFORM Event Display: Progress Note Hospital Authored Date: [id number] Patient: RONI VIRAMONTES Age: 52 years Sex: Male : 1970 Associated Diagnoses: None Author: Wes Lezama [facility] Inpatient Nephrology Progress Note Interval History No overnight events Seen and examined on HD, reports feeling better today Plan for discharge today and dialysis at his outpatient unit tomorrow Review of Systems Review of Systems Constitutional: no fever, no night sweats. Respiratory: dyspnea improved. Cardiovascular: peripheral edema, no chest pain. Gastrointestinal: no abdominal pain. Physical Examination Vital Signs Vitals : VITALS 09/06/2022 7:25 EST Temperature 98.3 DegF Temperature Route Oral Pulse Rate 72 bpm Respiratory Rate 18 br/min Systolic Blood Pressure 116 mm Hg Diastolic Blood Pressure 64 mm Hg Blood pressure sites Arm, right Mean Arterial Pressure 81 mm Hg Pulse Pressure 52 mm Hg Oxygen Saturation 95 % Mode of Delivery (Oxygen) Room air . General Appearance NAD. HEENT Moist mucous membranes. Respiratory Lungs: CTA. Cardiac Cardiac: no M/G/R. Rhythms: RRR. Abdomen/GI Abdomen: soft. Extremities Edema. Neurologic Alert & oriented x 3 . Results Review 7 Day Results Results Laboratory : LABORATORY 09/06/2022 8:32 EST WBC 5.3 k/mm3 RBC 3.13 m/mm3 L Hgb 8.9 Gm/dL L Hct 29.1 % L MCV 93.0 femtoliters MCH 28.4 pg MCHC 30.6 g/dL L Platelet Count 204 k/mm3 RDW-SD 61.9 femtoliters H MPV 10.6 femtoliters Nucleated RBC (Automated) 0.0 #/100 WBC'S Abs. NRBC 0.0 k/mm3 Abs. Neut 3.8 k/mm3 Abs. Lymph 0.4 k/mm3 L Abs. Becker 0.9 k/mm3 Abs. Eo 0.1 k/mm3 Abs. Baso 0.0 k/mm3 Neut % 72.0 % Lymph % 7.9 % L Becker % 17.2 % H Eos % 2.1 % Baso % 0.4 % Imm Gran 0.4 % Abs. Imm Gran 0.0 k/mm3 INR 1.2 H Protime (PT) 12.7 seconds H APTT 28.7 seconds Sodium 137 mmol/L Potassium 4.3 mmol/L Chloride 94 mmol/L L Bicarbonate Level 22 mmol/L Anion Gap 21 H Glucose Level 95 mg/dL BUN 59 mg/dL H Creatinine-Blood 9.8 mg/dL H Estimated GFR Creatinine 6 ML/MIN/1.73 M2 Calcium 6.2 mg/dL L Phosphorus 6.1 mg/dL H Magnesium 1.9 mg/dL Protein, Total 6.6 Gm/dL Albumin 3.9 Gm/dL AG Ratio 1.4 Alkaline Phosphatase 179 units/L H AST (SGOT) 390 units/L H ALT (SGPT) 455 units/L H Bilirubin, Total 0.6 mg/dL Bilirubin, Total Pending (Preliminary) Bilirubin, Direct 0.4 mg/dL H Bilirubin, Indirect 0.2 mg/dL Impression and Plan Roni Viramontes is a 52-year-old male with PMH of ESRD status post donor transplant with failed graft and currently on dialysis TTS schedule, chronic hyperkalemia on Lokelma on nondialysis days, diabetes on insulin pump, heart failure with reduced EF, coronary artery disease, hypertension, hyperlipidemia, and glaucoma who presented to the hospital 09/03/2021 with complaints of shortness of breath and left sided abdominal pain of 3 to 4 days duration. 1. ESRD / Hyperkalemia Pt dialyzes TTS at [facility] via L AVF Patient takes Lokelma 10gm on non-dialysis days Plan - HD here today and again tomorrow at his outpatient dialysis unit - Lokelma 10gm on non-dialysis days - Mycophenolate 540 mg twice daily - Renal diet 2. HTN / Volume Chronically, patient takes Lasix 80mg daily and metoprolol 100mg daily. Plan - Continue Lasix 80mg daily and metoprolol 100mg daily. 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 Tsat 42% and ferritin 1,205 (08/08). Plan - EPO 20,000u weekly 4. Secondary Hyperparathyroidism / MBD Phos 6.1 and calcium 6.2 (09/06). PTH 40 (08/08). Plan - Discontinue Sensipar - Discontinue Calcitriol - Dialyze on 3 Ca bath - Sevelamer 800mg TID w/ meals - Renal diet (phos restrict) Thank you for the courtesy of this consult, RTANE will continue monitoring the patient along with you please do not hesitate to call us with any further questions Wes Gifford PA-C [facility] [address] , [address] Available by [facility] * Mendy GREENWOOD, Alexis: PERFORM Event Display: Progress Note Hospital Authored Date: I have evaluated the patient and discussed the plan with Wes Gifford PA-C. * Siria Mota RN: PERFORM, SIGN, VERIFY Event Display: Progress Note Hospital Authored Date: Patient: RONI VIRAMONTES Age: 52 years Sex: Male : 1970 Associated Diagnoses: None Author: Siria Mota RN Findings patient at dialysis at change of shift. plan is to discharge after dialysis treatment. patient willbe transfered to S3 discharge unit and dcd home from there. belongings packed up and transporting to discharge unit. US.doppler Lower extremity vein - bilateral * Sharan , ROSMERY S: Barak Marley MD: VERIFY Amparo Gonzalez DO: SIGN Event Display: Result: Authored Date: US Doppler Ext Lower Venous Bilat Reason: Swelling of the bilateral extremities. Clinical Question(s): Thrombosis. COMPARISON: Bilateral lower extremity venous Doppler ultrasound 08/27/2022 IMAGING TECHNIQUE: Ultrasound of the veins from the groin through the calf was performed using grayscale, color, and spectral Doppler ultrasound assessing for complete compressibility and normal flowcharacteristics. FINDINGS: Technically difficult exam due to bilateral diffuse calf edema and patient inability to Valsalva. RIGHT LOWER EXTREMITY: Common femoral vein: Patent. No thrombosis. Femoral vein: Patent. No thrombosis. Popliteal vein: Patent. No thrombosis. Gastrocnemius veins: The visualized portions are patent without evidence of thrombosis. Peroneal veins: The visualized portions are patent without evidence of thrombosis. Posterior tibial veins: The visualized portions are patent without evidence of thrombosis. LEFT LOWER EXTREMITY: Common femoral vein: Patent. No thrombosis. Femoral vein: Patent. No thrombosis. Popliteal vein: Patent. No thrombosis. Gastrocnemius veins: The visualized portions are patent without evidence of thrombosis. Peroneal veins: The visualized portions are patent without evidence of thrombosis. Posterior tibial veins: The visualized portions are patent without evidence of thrombosis. OTHER FINDINGS: Diffuse bilateral calf edema. IMPRESSION: Technically difficult exam due to bilateral diffuse calf edema and patient inability to complete Valsalva maneuvers. Within these limitations, there is no evidence of deep venous thrombosis. I have personally reviewed the images and I agree with this report. WSN: [id number] Ordering Physician: Jaiden Sol Dictated By: Amparo Gonzalez DO Dictated Date/Time: 09/05/22 11:42 a Reviewed By: Barak Khan MD Signed By: Barak Khan MD Signed Date/Time: 09/05/22 11:47 am Transcribed By: AMY Transcribed Date/Time: 09/05/22 10:[address] Abdomen and Pelvis W contrast IV * [facility]SPowerscribe , CIS S: TRANSCRIBE Roque GREENWOOD, Devrim: VERIFY Sal[Radiology] Amn TIMOinder: SIGN Event Display: Result: Authored Date: [id number] EXAMINATION: CT Angio Chest, CT Abd/Pelvis W/ IV Contrast Only INDICATION: Hx of Present Illness: dialysis pt, presents to ed with abd distention and discomfort, also reports sob with exertion and at rest lying; Reason: Other:; PE suspected, Intermediate prob, positive D-dimer,; Clinical Question(s): Pulmonary Embolism TECHNIQUE: Spiral CTA of the chest was performed after rapid IV contrast administration without cardiac gating triggered by an LUCIANA on the main pulmonary artery. Spiral CT of the abdomen and pelvis was then performed in the portal venous phase. Images are formatted in multiple planes using 2-D multiplanar and 3-D maximum intensity projection. 100 cc of Omnipaque 300 was administered intravenously.Weight-based protocol using automatic tube modulation was used to optimize exposure parameters. CTDIvol Body: 11.83 mGy, DLP Body: 1557 mGy*cm. COMPARISONS: 08/28/2022, CT abdomen and pelvis 07/20/2021. ANGIOGRAPHIC FINDINGS: No pulmonary embolism to the subsegmental level. Normal caliber pulmonary arteries. There is contrast reflux into the IVC and hepatic veins, suggesting increased right heart pressure. No acute aortic abnormality seen on this study performed without cardiac gating. NON-ANGIOGRAPHIC FINDINGS: Production Quality Analyst View Findings, Lines and Tubes: None. Trachea and Airways: Minimal mucus along the right upper lobe bronchus, otherwise patent. Lungs and Pleura: Unchanged scattered peribronchial tree-in-bud, groundglass nodules. Areas of bronchiolectasis adjacent to the groundglass nodules in the left upper lobe. No effusion or pneumothorax. Mediastinum and irish: No mass or hematoma. No mediastinal or hilar lymphadenopathy. Small type I hiatal hernia. Mild diffuse esophageal wall thickening. There is a 1.6 cm right thyroid lobe nodule. Heart: Mild cardiomegaly. No pericardial effusion. Severe coronary artery calcification. Chest Wall Soft Tissues: Moderate gynecomastia. Dependent bilateral subcutaneous edema. Venous graft present along the left axilla. Diaphragm: No significant abnormality. Liver: Diffuse low-attenuation throughout the liver parenchyma consistent with hepatic steatosis. No evidence of mass. Gallbladder: Mildly wall thickening of the gallbladder, without pericholecystic fluid and under distended lumen, likely due to underlying hepatocellular disease. Possible small gallstone in the lumen. Bile ducts: No biliary ductal dilation. Spleen: Normal. Pancreas: Severe fatty atrophy, otherwise unremarkable. Adrenal glands: Normal. Kidneys and ureters: Severely atrophic [place] kidneys. Transplant kidney present within the right lower quadrant. No hydronephrosis, no nephrolithiasis. Mild fat stranding in the transplant kidney perinephric region, is unchanged since 2020. Bladder: Contains hyperdense fluid likely representing mixture of urine and excreted IV contrast. Reproductive organs: Unremarkable. Stomach, small bowel, and large bowel: Small type I hiatal hernia. Multiple fluid-filled the small bowel is present in the left abdomen with adjacent free fluid. Appendix: Normal. Peritoneum and retroperitoneum: Trace ascites present. No omental or mesenteric lesions. Lymph nodes: No enlarged lymph nodes. Abdominal and pelvic wall: Diffuse subcutaneous edema. There is periumbilical skin thickening and asmall focus of skin thickening in the right inguinal region. Bones: No acute abnormality. IMPRESSION: 1. No evidence of pulmonary embolism. 2. Unchanged scattered groundglass and tree-in-bud opacities within the lungs. There are areas of bronchiolectasis especially within the bilateral upper lobes suggesting underlying chronic interstitial lung disease such as smoking-related versus hypersensitivity pneumonitis. Underlying bronchiolitis cannot be excluded in the appropriate clinical setting. 3. There is mild gallbladder wall thickening with pericholecystic fluid which could represent earlyacute cholecystitis. Further evaluation of the right upper quadrant ultrasound can be considered ifclinical suspicion for acute cholecystitis. 4. Mild diffuse esophagitis. 5. 1.6 cm right thyroid lobe nodule should be further evaluated with nonemergent ultrasound ACR guidelines. 6. Hepatic steatosis. 7. Periumbilical and right inguinal skin thickening. Please correlate with physical examination findings to exclude cellulitis. 8. Additional chronic incidental findings. I have personally reviewed the images and I agree with this report. WSN: [id number] Ordering Physician: Lavonne Jama Dictated By: Sal[Radiology] Freddy GREENWOOD Dictated Date/Time: 09/03/22 11:27 p Reviewed By: Charo Nevarez MD Signed By: Charo Nevarez MD Signed Date/Time: 09/03/22 11:32 pm Transcribed By: AMY Transcribed Date/Time: 09/03/22 11:17 pm CTA Chest vessels W contrast IV * [facility] , CIS S: TRANSCRIBE Charo Nevarez MD: VERIFY Sal[Radiology] Freddy GREENWOOD: SIGN Event Display: Result: Authored Date: [id number] EXAMINATION: CT Angio Chest, CT Abd/Pelvis W/ IV Contrast Only INDICATION: Hx of Present Illness: dialysis pt, presents to ed with abd distention and discomfort, also reports sob with exertion and at rest lying; Reason: Other:; PE suspected, Intermediate prob, positive D-dimer,; Clinical Question(s): Pulmonary Embolism TECHNIQUE: Spiral CTA of the chest was performed after rapid IV contrast administration without cardiac gating triggered by an LUCIANA on the main pulmonary artery. Spiral CT of the abdomen and pelvis was then performed in the portal venous phase. Images are formatted in multiple planes using 2-D multiplanar and 3-D maximum intensity projection. 100 cc of Omnipaque 300 was administered intravenously.Weight-based protocol using automatic tube modulation was used to optimize exposure parameters. CTDIvol Body: 11.83 mGy, DLP Body: 1557 mGy*cm. COMPARISONS: 08/28/2022, CT abdomen and pelvis 07/20/2021. ANGIOGRAPHIC FINDINGS: No pulmonary embolism to the subsegmental level. Normal caliber pulmonary arteries. There is contrast reflux into the IVC and hepatic veins, suggesting increased right heart pressure. No acute aortic abnormality seen on this study performed without cardiac gating. NON-ANGIOGRAPHIC FINDINGS: Production Quality Analyst View Findings, Lines and Tubes: None. Trachea and Airways: Minimal mucus along the right upper lobe bronchus, otherwise patent. Lungs and Pleura: Unchanged scattered peribronchial tree-in-bud, groundglass nodules. Areas of bronchiolectasis adjacent to the groundglass nodules in the left upper lobe. No effusion or pneumothorax. Mediastinum and irish: No mass or hematoma. No mediastinal or hilar lymphadenopathy. Small type I hiatal hernia. Mild diffuse esophageal wall thickening. There is a 1.6 cm right thyroid lobe nodule. Heart: Mild cardiomegaly. No pericardial effusion. Severe coronary artery calcification. Chest Wall Soft Tissues: Moderate gynecomastia. Dependent bilateral subcutaneous edema. Venous graft present along the left axilla. Diaphragm: No significant abnormality. Liver: Diffuse low-attenuation throughout the liver parenchyma consistent with hepatic steatosis. No evidence of mass. Gallbladder: Mildly wall thickening of the gallbladder, without pericholecystic fluid and under distended lumen, likely due to underlying hepatocellular disease. Possible small gallstone in the lumen. Bile ducts: No biliary ductal dilation. Spleen: Normal. Pancreas: Severe fatty atrophy, otherwise unremarkable. Adrenal glands: Normal. Kidneys and ureters: Severely atrophic [place] kidneys. Transplant kidney present within the right lower quadrant. No hydronephrosis, no nephrolithiasis. Mild fat stranding in the transplant kidney perinephric region, is unchanged since 2020. Bladder: Contains hyperdense fluid likely representing mixture of urine and excreted IV contrast. Reproductive organs: Unremarkable. Stomach, small bowel, and large bowel: Small type I hiatal hernia. Multiple fluid-filled the small bowel is present in the left abdomen with adjacent free fluid. Appendix: Normal. Peritoneum and retroperitoneum: Trace ascites present. No omental or mesenteric lesions. Lymph nodes: No enlarged lymph nodes. Abdominal and pelvic wall: Diffuse subcutaneous edema. There is periumbilical skin thickening and asmall focus of skin thickening in the right inguinal region. Bones: No acute abnormality. IMPRESSION: 1. No evidence of pulmonary embolism. 2. Unchanged scattered groundglass and tree-in-bud opacities within the lungs. There are areas of bronchiolectasis especially within the bilateral upper lobes suggesting underlying chronic interstitial lung disease such as smoking-related versus hypersensitivity pneumonitis. Underlying bronchiolitis cannot be excluded in the appropriate clinical setting. 3. There is mild gallbladder wall thickening with pericholecystic fluid which could represent earlyacute cholecystitis. Further evaluation of the right upper quadrant ultrasound can be considered ifclinical suspicion for acute cholecystitis. 4. Mild diffuse esophagitis. 5. 1.6 cm right thyroid lobe nodule should be further evaluated with nonemergent ultrasound ACR guidelines. 6. Hepatic steatosis. 7. Periumbilical and right inguinal skin thickening. Please correlate with physical examination findings to exclude cellulitis. 8. Additional chronic incidental findings. I have personally reviewed the images and I agree with this report. WSN: [id number] Ordering Physician: Lavonne Jama Dictated By: Sal[Radiology] Freddy GREENWOOD Dictated Date/Time: 09/03/22 11:27 p Reviewed By: Charo Nevarez MD Signed By: Charo Nevarez MD Signed Date/Time: 09/03/22 11:32 pm Transcribed By: AMY Transcribed Date/Time: 09/03/22 11:17 pm Patient Care team information Care Team Personnel Name: Wild Santos RN Position: [facility] RN Member Role: Primary Care Nurse Name: Lucy Garcia RN Position: S RN Member Role: Primary Care Nurse Name: Julianna Mazariegos RN Position: S RN Member Role: Primary Care Nurse Name: Simin Rosario RN Position: S RN Member Role: Primary Care Nurse Name: Janie Kunz RN Position: S RN Member Role: Primary Care Nurse Name: Krishna Tapia MD Position: [facility] Outreach Member Role: PCP Address: Address: [address] [place] [address] Trino Tapia MD [place], [place] [address] Name: Miguelangel Cancino MD Position: [facility] Renal MD Member Role: Lifetime Consulting Physician Address: Address: [address] [place] [address], [address] [facility] [place] [address]- [place] Name: Lavonne Mckenzie RN Position: [facility] RN Member Role: Primary Care Nurse Name: [...] Name: Barak Shaw DO Position: [facility] Renal MD Member Role: Lifetime Consulting Physician Address: Address: [address] [place], [place] [address] [place] [address]- Name: Tayla Fine Position: [facility] Outreach Member Role: Lifetime Consulting Physician Name: Niki Montes RN Position: [facility] RN Member Role: Primary Care Nurse Name: Stella Calhoun RN Position: [facility] RN Member Role: Primary Care Nurse Name: Wes Lezama Position: [facility] Associate Professional Member Role: Lifetime Consulting Provider Address: Address: [address] [place] [id number]- Name: Kinjal Macias RN Position: [facility] RN Member Role: Primary Care Nurse Name: Estephania Pizano RN Position: [facility] ED RN W/OE and Tasks Member Role: Primary Care Nurse Name: Zita Barrow RN Position: [facility] RN Member Role: Primary Care Nurse Name: Alexis Brooke MD Position: [facility] Renal MD Member Role: Lifetime Consulting Physician Address: Address: [address] [place] [address] [address] [facility] [place] [address]- Name: Amanda Vides RN Position: [facility] RN Member Role: Primary Care Nurse Name: Chantelle Villareal RN Position: S RN Member Role: Primary Care Nurse Name: Brisa Michaels RN Position: [facility] RN Member Role: Primary Care Nurse Name: London Chau RN Position: [facility] RN Member Role: Primary Care Nurse Name: Ana Schafer RN Position: [facility] RN Member Role: Primary Care Nurse Name: Liz Aguilera RN Position: [facility] Outreach Member Role: Lifetime Consulting Physician Name: Sudhir Chan Position: [facility] Outreach Member Role: Lifetime Consulting Physician Name: Monique Guzmán RN Position: [facility] RN Member Role: Primary Care Nurse Name: Roselia Crain RN Position: [facility] RN Member Role: Primary Care Nurse Name: Jorge Crews RN Position: [facility] RN Member Role: Primary Care Nurse Address: Address: [address] [place] [address]- Name: Marcelo Joy MD Position: [facility] Renal MD Member Role: Lifetime Consulting Physician Address: Address: [address] [place] [address] [facility] [address] Name: Nell Copeland RN Position: [facility] RN Member Role: Primary Care Nurse Name: Odalis Roy RN Position: [facility] SN RN Member Role: Primary Care Nurse Name: Merline Carlson RN Position: [facility] RN Member Role: Primary Care Nurse Name: Nupur Black RN Position: [facility] RN Member Role: Primary Care Nurse Name: Serena Allen RN Position: [facility] Onco RN Member Role: Primary Care Nurse Name: Maura Tsang RN Position: [facility] RN Member Role: Primary Care Nurse Name: Barbara Dill Position: [facility] ED TA [facility] Member Role: Skating Carhop Name: Abdoul Flowers Position: [facility] ED RN W/OE and Tasks Member Role: Patient Care Provider Name: Lavonne Sneed Position: [facility] Associate Professional Member Role: ED Physician Meat Stringer Address: Address: [address] [place] [address]- Name: Cain Wilson MD Position: [facility] ED Medicine MD Member Role: ED Attending Physician Address: Address: [address] [place] [address]- Name: Flakita Rodriguez RN Position: [facility] ED RN W/OE and Tasks Member Role: Patient Care Provider Care Team Related Persons Name: KAYCE PARK Address: home [address] [place] [id number] Name: SANTIAGO NAZARIO Address: home [address] [place] [address]
--- OUTSIDE RECORDS SUMMARY | 2023-02-07 12:14 | XMS_ITS | Continuity of Care Document ---
Author Name Unknown Organization [facility] Ezra jeanna Address [address] [place] [address] [address] [place] [address]- Care Team Providers Care Stoper Name Role Phone Krishna Tapia MD Primary Care Physician [phone] Encounter [facility] [place](s): 11/25/22 - 12/25/22 [facility] [address] [place] [address]- Allergies, Adverse Reactions, Alerts Substance Reaction Severity [...] 12/18/22 7:22:00 EDT, Route to Pharmacy Electronically, [facility], Partial fill upon patient request if... [...] 06/22/22 6:51:00 EDT, Capsule, [facility], Partial fill upon patient request if [...] Route to Pharmacy Electronically, [facility], Partial fill upon patient request if [...] EVERY DAY, # 180 tablet, 1 Refills, [id number], 173,cm, 01/24/22 16:16:00 EDT, Height, 91.1, kg, [...] 11/07/22 16:29:00 EDT, Route to Pharmacy Electronically, [facility], Partial fill upon patient request if [...] MRI Safety Implantable Status Assigning Authority Unknown [id number] Unknown Unknown 09/26/25 Unknown Unknown Active Unknown Patient Care team information Care Team Personnel Name: Wild Santos RN Position: [facility] RN Member Role: Primary Care Nurse Name: Lucy Garcia RN Position: S RN Member Role: Primary Care Nurse Name: Julianna Mazariegos RN Position: S RN Member Role: Primary Care Nurse Name: Simin Rosario RN Position: [facility] RN Member Role: Primary Care Nurse Name: Kendal Garcia RN Position: [facility] RN Member Role: Primary Care Nurse Name: Janie Kunz RN Position: S RN Member Role: Primary Care Nurse Name: Krishna Tapia MD Position: [facility] Outreach Member Role: PCP Address: Address: [address] [place] [address] Krishna Tapia MD [place], [place] [address] [[email or web address]] Name: Miguelangel Cancino MD Position: [facility] Renal MD Member Role: Lifetime Consulting Physician Address: Address: [address] [place] [address], [address] [facility] [place] [address]- Name: Lavonne Mckenzie RN Position: S RN [...] Care Nurse Name: Barak Shaw DO Position: [facility] Renal MD Member Role: Lifetime Consulting Physician Address: Address: [address] [facility] [place] [address]- Name: Tayla Fine Position: [facility] Outreach Member Role: Lifetime Consulting Physician Name: Niki Montes RN Position: S RN Member Role: Primary Care Nurse Name: Stella Calhoun RN Position: [facility] RN Member Role: Primary Care Nurse Name: Wes Lezama Position: [facility] Associate Professional Member Role: Lifetime Consulting Provider Address: Address: [address] [place] [address]- Name: Kinjal Macias RN Position: [facility] RN Member Role: Primary Care Nurse Name: Estephania Pizano RN Position: [facility] ED RN W/OE and Tasks Member Role: Primary Care Nurse Name: Alexis Brooke MD Position: [facility] Renal MD Member Role: Lifetime Consulting Physician Address: Address: [address] [place] [address] [address] [facility] [place] [address]- Name: Amanda Vides RN Position: [facility] RN Member Role: Primary Care Nurse Name: Chantelle Villareal RN Position: [facility] RN Member Role: Primary Care Nurse Name: Brisa Michaels RN Position: [facility] RN Member Role: Primary Care Nurse Name: London Chau RN Position: [facility] RN Member Role: Primary Care Nurse Name: Ana Schafer RN Position: [facility] RN Member Role: Primary Care Nurse Name: Liz Aguilera RN Position: [facility] Outreach Member Role: Lifetime Consulting Physician Name: Sudhir Chan Position: [facility] Outreach Member Role: Lifetime Consulting Physician Name: Monique Guzmán RN Position: [facility] RN Member Role: Primary Care Nurse Name: Roselia Crain RN Position: [facility] RN Member Role: Primary Care Nurse Name: Jorge Crews RN Position: [facility] RN Member Role: Primary Care Nurse Address: Address: [address] [place] [address]- Name: Marcelo Joy MD Position: [facility] Renal MD Member Role: Lifetime Consulting Physician Address: Address: [address] [place] [address] [facility] [place] [address]- Name: Nell Copeland RN Position: [facility] RN Member Role: Primary Care Nurse Name: Star Hagen RN Position: [facility] RN Member Role: Primary Care Nurse Name: Odalis Roy RN Position: [facility] SN RN Member Role: Primary Care Nurse Name: Merline Carlson RN Position: [facility] RN Member Role: Primary Care Nurse Name: Nupur Black RN Position: [facility] RN Member Role: Primary Care Nurse Name: Serena Allen RN Position: [facility] Onco RN Member Role: Primary Care Nurse Name: Maura Tsang RN Position: [facility] RN Member Role: Primary Care Nurse Care Team Related Persons Name: RAQUELDARLENE KAYCE Address: home [address] [place] [address] Name: SANTIAGO NAZARIO Address: home [address] [place] [id number]
--- OUTSIDE RECORDS SUMMARY | 2023-02-07 12:14 | XMS_ITS | Continuity of Care Document ---
Author Name Unknown Organization [facility] ter Address [address] [place] [address]- Care Team Providers Care Engineering Writer Name Role Phone Krishna Tapia MD Primary Care Physician Encounter [facility] [place] Date(s): 08/19/22 - 09/27/[address] [address] Attending Physician: Daniel Brantley DO Admitting Physician: Daniel Brantley DO Referring Physician: Kailey GREEN[place], [facility] Allergies, Adverse Reactions, Alerts Substance Reaction [...] 0 Refills, Maintenance, 06/22/22 6:51:00 EDT, Capsule, [facility], Partial fill upon patient request if [...] 08/29/22 8:44:00 EST, Route to Pharmacy Electronically, [facility], Partial fill upon patient request if [...] EVERY DAY, # 180 tablet, 1 Refills, [id number], 173,cm, 01/24/22 16:16:00 EDT, Height, 91.1, kg, [...] 05/23/22 14:38:00 EDT, Route to Pharmacy Electronically, [facility], Partial fill upon patient request if [...] 0 Refills, Maintenance, 06/22/22 6:51:00 EDT, Tablet, [facility], Partial fill upon patient [...] MRI Safety Implantable Status Assigning Authority Unknown [id number] Unknown Unknown 09/26/25 Unknown Unknown Active Unknown Deprecated Cardiac rehabilitation treatment plan Progress note and attainment of goals (narrative) * Bushra Olvera: PERFORM, SIGN, VERIFY Event Display: Cardiac Rehab Note Authored Date: [id number] Patient: RONI GARZA Age: 52 years Sex: Male : 1970 Associated Diagnoses: None Author: Bushra Olvera Mr. Garza was scheduled for his cardiac rehab orientation today. He is currently inpatient for low leg pain. Will leave message fpr patient to reschedule his cardiac rehab orientation when he is able to do so. Thank you Patient Care team information Care Team Personnel Name: iWld Santos RN Position: [facility] RN Member Role: Primary Care Nurse Name: Lucy Garcia RN Position: [facility] RN Member Role: Primary Care Nurse Name: Julianna Mazariegos RN Position: [facility] RN Member Role: Primary Care Nurse Name: Simin Rosario RN Position: [facility] RN Member Role: Primary Care Nurse Name: Janie Kunz RN Position: [facility] RN Member Role: Primary Care Nurse Name: Krishna Tapia MD Position: S Outreach Member Role: PCP Address: Address: [address] [place] [address] [place] [address]- Name: Miguelangel Cancino MD Position: [facility] Renal MD Member Role: Lifetime Consulting Physician Address: Address: [address] [place] [address], [address] [facility] [place] [address]- Name: Lavonne Mckenzie RN Position: [facility] RN Member Role: Primary Care Nurse Name: Filomena Austin RN Position: [facility] RN Member Role: Primary Care Nurse Name: Gladis Aguirre Position: [facility] RN Member Role: Primary Care Nurse Name: Faby Guido RN Position: [facility] RN Member Role: Primary Care Nurse Name: Sabrina Damon RN Position: S RN Member Role: Primary Care Nurse Name: Maddy Skelton Position: S RN Member Role: Primary Care Nurse Name: Elise Yao LPN Position: [facility] RN Member Role: Primary Care Nurse Name: Barak Shaw DO Position: [facility] Renal MD Member Role: Lifetime Consulting Physician Address: Address: [address] [place], [place] [address] [address] Name: Tayla Fine Position: [facility] Outreach Member Role: Lifetime Consulting Physician Name: Niki Montes RN Position: [facility] RN Member Role: Primary Care Nurse Name: Stella Calhoun RN Position: [facility] RN Member Role: Primary Care Nurse Name: Wes Lezama Position: [facility] Associate Professional Member Role: Lifetime Consulting Provider Address: Address: [address] [place] [address] Name: Kinjal Macias RN Position: [facility] RN Member Role: Primary Care Nurse Name: Estephania Pizano RN Position: [facility] ED RN W/OE and Tasks Member Role: Primary Care Nurse Name: Zita Barrow RN Position: [facility] RN Member Role: Primary Care Nurse Name: Alexis Brooke MD Position: [facility] Renal MD Member Role: Lifetime Consulting Physician Address: Address: [address] [place] [address] [address] [facility] [place], [address] Name: Amanda Vides RN Position: [facility] RN Member Role: Primary Care Nurse Name: Chantelle Villareal RN Position: [facility] RN Member Role: Primary Care Nurse Name: Brisa Michaels RN Position: [facility] RN Member Role: Primary Care Nurse Name: London Chau RN Position: [facility] RN Member Role: Primary Care Nurse Name: Ana Schafer RN Position: [facility] RN Member Role: Primary Care Nurse Name: Liz Aguilera RN Position: [facility] Outreach Member Role: Lifetime Consulting Physician Name: Sudhir Chan Position: S Outreach Member Role: Lifetime Consulting Physician Name: Monique Guzmán RN Position: S RN Member Role: Primary Care Nurse Name: Roselia Crain RN Position: [facility] RN Member Role: Primary Care Nurse Name: Jorge Crews RN Position: S RN Member Role: Primary Care Nurse Address: Address: [address] [place] [address] Name: Marcelo Joy MD Position: [facility] Renal MD Member Role: Lifetime Consulting Physician Address: Address: [address] [place] [address] [facility] [address] Name: Nell Copeland RN Position: [facility] RN Member Role: Primary Care Nurse Name: Star Hagen RN Position: [facility] RN Member Role: Primary Care Nurse Name: Odalis Roy RN Position: [facility] SN RN Member Role: Primary Care Nurse Name: Merline Carlson RN Position: S RN Member Role: Primary Care Nurse Name: Nupur Black RN Position: [facility] RN Member Role: Primary Care Nurse Name: Serena Allen RN Position: [facility] Onco RN Member Role: Primary Care Nurse Name: Maura Tsang RN Position: [facility] RN Member Role: Primary Care Nurse Care Team Related Persons Name: KAYCE PARK Address: home [address] [place] [address] Name: NAZARIOSANTIAGO Address: [address] [place] [address]
--- OUTSIDE RECORDS SUMMARY | 2023-02-07 12:14 | XMS_ITS | Continuity of Care Document ---
Author Name Unknown Organization [facility] ter Address [address] [place] [id number]- Care Team Providers Care Inspector Scales Name Role Phone Krishna Tapia MD Primary Care Physician Encounter [facility] [place] Date(s): 12/18/22 - 12/18/[address] [address] Discharge Disposition: A-D/C Home Attending Physician: Jesse Sorenson MD Admitting Physician: Jesse Sorenson MD Referring Physician: Jesse Sorenson MD Allergies, Adverse Reactions, [...] 12/18/22 7:22:00 EDT, Route to Pharmacy Electronically, [facility], Partial fill upon patient request if... [...] 0 Refills, Maintenance, 06/22/22 6:51:00 EDT, Capsule, [facility], Partial fill upon patient request if the prescription is for a schedule II opioid drug.... Start Date: 06/22/22 Stop Date: 07/22/22 Status: Ordered clindamycin 300 mg oral capsule 1 capsule = 300 mg, By Mouth, Every 6 hours, for 5 days, # 20 capsule, 0 Refills, Acute 12/23/22 8:30:00 EDT, 12/18/22 8:30:00 EDT, Capsule, [facility], Partial fill upon patient request ifthe prescription is for a schedule II opioid drug.,... Start Date: 12/18/22 Stop Date: 12/23/22 Status: Ordered Compression Stockings See Instructions, # [...] 08/29/22 8:44:00 EST, Route to Pharmacy Electronically, [facility], Partial fill upon patient request [...] EVERY DAY, # 180 tablet, 1 Refills, [id number], 173,cm, 01/24/22 16:16:00 EDT, Height, 91.1, kg, [...] 11/07/22 16:29:00 EDT, [facility] to Pharmacy Electronically, [facility] [...] EST, Supply Start Date: 08/29/22 Status: Ordered oxyCODONE 5 mg oral tablet 5 mg, 1, tablet, By Mouth, Every 6 hours, PRN, # 10 tablet, Refills 0, Tot. Refills 0, Acute 12/25/22 7:23:00 EDT, as needed for pain, 12/18/22 7:23:00 EDT, Route to Pharmacy Electronically, [facility], Partial fill upon patient request, 173... Start Date: 12/18/22 Stop Date: 12/25/22 Status: Ordered Renvela 800 mg oral tablet [...] to oldest [Reference Range]: 1 2 3 4 Height 173 cm (12/18/22 6:43 AM) 173 cm (12/14/22 10:06 AM) Weight 95.5 kg (12/18/22 6:43 AM) 97.5 kg (12/14/22 10:06 AM) Oxygen Saturation [94-100 %] 96 % (12/18/22 9:15 AM) 96 % (12/18/22 9:15 AM) 96 % (12/18/22 9:00 AM) 96 % (12/18/22 9:00 AM) Pulse Rate [55-90 bpm] 66 bpm (12/18/22 6:43 AM) Body Mass Index [18.5-24.99 kg/m2] 31.91 kg/m2 *>HHI* (12/18/22 6:43 AM) 32.58 kg/m2 *>HHI* (12/14/22 10:06 AM) Blood Pressure [90-138/55-84 mm Hg] 148/57mm Hg *H* (12/18/22 9:00 AM) 136/57mm Hg (12/18/22 8:45 AM) 144/53mm Hg *H* (12/18/22 8:30 AM) Respiratory Rate [16-30 br/min] 14 br/min *L* (12/18/22 9:00 AM) 11 br/min *L* (12/18/22 8:45 AM) 10 br/min *L* (12/18/22 8:30 AM) Temperature [96.8-100.4 DegF] 97.1 DegF (12/18/22 8:30 AM) 97.7 DegF (12/18/22 6:43 AM) Mode of Delivery (Oxygen) Room air (12/18/22 9:15 AM) Room air (12/18/22 9:15 AM) Room air (12/18/22 9:00 AM) Room air (12/18/22 9:00 AM) Blood pressure sites Arm, left (12/18/22 9:00 AM) Arm, left (12/18/22 8:45 AM) Arm, left (12/18/22 8:30 AM) Temperature Route Temporal (12/18/22 8:30 AM) Temporal (12/18/22 6:43 AM) Dry Weight 97.5 kg (12/14/22 10:06 AM) Weight Obtained Via Standing scale (12/18/22 6:43 AM) Dry Weight Obtained Via Patient/family stated (12/14/22 10:06 AM) Social History Social History Type Response Smoking Status Never smoker entered on: 01/06/17 Sex Male Implantable Device List Procedure Provider Procedure Date Device Type Site Creation Arteriovenous Graft Upper Extre Angie GREENWOOD, Josef Wallace 03/12/21 Unknown Arm Left Device Identifier Serial Number Lot or Batch Number Manufacturing Date Expiration Date Distinct Identification Code MRI Safety Implantable Status Assigning Authority Unknown [id number] Unknown Unknown 09/26/25 Unknown Unknown Active Unknown Hospital Progress note * Event Display: Progress Note Hospital Authored Date: [id number] Note * Enrrique JESSICA, Janae: PERFORM Event Display: Patient Education/Instruction Authored Date: [id number] Inpatient Adult Discharge Instructions [address] [address] Name: RONI VIRAMONTES : 1970 Visit: 12/18/2022 05:33:00 Current Date: 12/18/2022 08:40 Account: [id number] Inpatient Adult Discharge Instructions We would like [...] and their families. Surveys are administered by [employer] ?? If further treatment with your primary care physician or another doctor is recommended, it is important for you to keep the appointment. Call your primary care physician or return to the Emergency Department immediately if your condition worsens, fails to improve, or new symptoms develop. If you need to find a doctor, you can call [facility] for a referral at [phone] or toll free at [phone]) or log in to [email or web address].. ?? You can view and manage your care through the patient portal or by using a health care bam of your choosing. [email or web address] is a website that allows you to securely view your medical information including your hospital discharge summary, office visit summaries, medications and follow-up visits. You can also request appointments, renew medications, and request access to your medical information using a health care bam of your choosing, or just ask a question. You can enroll at [email or web address] or register during your next office visit. You have been discharged from [facility], Patient Care Unit: [facility]. If you have any questions regarding these instructions after you leave, please call us and we will be happy to assist you. [facility] Your Care Team Attending Physician Delta GREENWOOD, Jesse Mckeon Consulting Providers Paloma Camacho MD Discharging Providers Jesse Sorenson MD Reason for Your Visit STENOSING TENOSYNOVITIS CS DS Tests Performed Below is a partial list of the tests performed during your hospitalization. You may have had other tests and procedures not included in this list. Please discuss all test results with your provider. BUN POC CARTRIDGE CALCIUM IONIZED POC CART CHLORIDE POC CARTRIDGE CREATININE POC CARTRIDGE GLUCOSE POC CARTRIDGE HEMATOCRIT POC CARTRIDGE HEMOGLOBIN POC CARTRIDGE POTASSIUM POC CARTRIDGE SODIUM POC CARTRIDGE Primary Care Provider Regina GREENWOOD, Krishna Advance Directive . Discharge Vitals Temperature: 97.7 DegF Height: 173 cm Pulse Rate: 66 bpm Weight: 95.5 kg Respiratory Rate:??98 br/min??High Body Mass Index:??31.91 kg/m2??Critical Systolic Blood Pressure: 133 mm Hg Body surface area: 2.14 Diastolic Blood Pressure: 79 mm Hg ?? Oxygen Saturation: 98 % ?? Studies Pending All tests and labs ordered during this hospital stay have been completed unless listed below. Please discuss all pending results with your provider listed above in these instructions. ?? No incomplete studies found What to do next Instructions From Your Doctor Discharge Orders Instructions from your Care Team You may take Tylenol for discomfort. Elevate operative hand and arm above heart for 3 days. No Ice to area. You may remove dressing in 72 hours, wash incision with soap and water and leave open to the air noBand-Aids. Encouraged to perform??range of motion of fingers. Scheduled Follow-Up Appointments Friday 1:00 PM EDT ?? With: Where: [facility] Plastic Surgery [address] [place] [address] - Friday 9:00 AM EDT ?? With: Selwyn GREENWOOD, Petros Where: [facility] [address] [place] [address]- You Need to Schedule the Following Appointments Follow Up with??Jesse Sorenson When?? Where: [address] [place] [address] [address] [place] [address]- Business (1) Follow Up with??Krishna Tapia MD When??In 0 days Where: [address] [place] [address] [place] [address]- Business (1) Discharge Medications RONI VIRAMONTES :1970 Visit Date:12/18/2022 Medications: Please continue your medications until treatment is completed or stopped by your provider. Medications not listed below should be discontinued. Discuss any questions related to medications with your provider. What How Much When Why Instructions Next Dose New Acetaminophen (acetaminophen 325 mg oral tablet) 2 tab(s) Oral Every 4 hours as needed for as needed for pain Pickup at [facility] New Clindamycin (clindamycin 300 mg oral capsule) 1 capsule Oral Every 6 hours Duration: 5 Days Pickup at [facility] New Oxycodone (oxyCODONE 5 mg oral tablet) 1 tab(s) Oral Every 6 hours as needed for as needed for pain Pickup at [facility] Unchanged Albuterol (albuterol 0.083% inhalation solution) 3 Milliliter Inhalation Every 4 hours as needed for Wheezing/Shortness of Breath Duration: 30 Days Unchanged Aspirin (aspirin 81 mg oral delayed release tablet) 1 tab(s) Oral Daily Duration: 30 Days Unchanged Atorvastatin (atorvastatin 40 mg oral tablet) 1 tab(s) Oral Daily Unchanged Brimonidine Ophthalmic (brimonidine 0.2% ophthalmic solution) 1 Drops Both eyes Twice a day Unchanged Calcitriol (calcitriol 0.5 mcg oral capsule) 3 capsule Oral Every Friday, and Friday Duration: 30 Days Unchanged Cyanocobalamin (cyanocobalamin 1000 mcg oral tablet) 1 tab(s) Oral Daily Unchanged Durable Medical Equipment (Compression Stockings) See instructions Venous insufficiency of both lower extremities surgical, knee length 20-30 mm Hg ?? Unchanged Durable Medical Equipment (Omni Pod Insulin Pump) Unchanged Fluticasone-Salmeterol (Advair Diskus 250 mcg-50 mcg inhalation powder) 1 puff(s) Inhalation Twice a day Unchanged Folic Acid (folic acid 1 mg oral tablet) 1 tab(s) Oral Daily Unchanged Furosemide (furosemide 80 mg oral tablet) 1 tab(s) Oral Daily Unchanged Gabapentin (gabapentin 300 mg oral capsule) 1 capsule Oral 3 times a day Duration: 30 Days Unchanged Insulin Lispro (Humalog 100 u/ ml subcutaneous injection) See instructions Subcutaneous InfusiON INSULIN PUMP ?? Unchanged Latanoprost Ophthalmic (Xalatan 0.005% solution) 1 Drops Both eyes Daily at Bedtime Unchanged Magnesium Oxide (magnesium oxide 400 mg oral tablet) See instructions TAKE 2 TABLETS BY MOUTH EVERY DAY ?? Unchanged Melatonin (melatonin 3 mg oral tablet) 3 Milligram Oral Daily at Bedtime as needed for as needed for insomnia Unchanged Metoprolol (metoprolol 50 mg oral tablet, extended release) 2 tab(s) Oral Daily Duration: 90 Days Unchanged Miscellaneous Rx (MECLIZINE 25 MG TABLET) Oral 3 times a day Unchanged Omeprazole (omeprazole 20 mg oral enteric coated capsule) 1 capsule Oral Daily Unchanged Sevelamer (Renvela 800 mg oral tablet) 1 tab(s) Oral 3 times a day with meals Unchanged sodium zirconium cyclosilicate (sodium zirconium cyclosilicate 10 g oral powder for reconstitution) 10 gram Oral Friday, Friday and Friday dilute w/ 45 ml water, mix well, and drink immediately ?? Unchanged Tamsulosin (tamsulosin 0.4 mg oral capsule) 1 capsule Oral Daily at Bedtime Pharmacy Information [facility]: [address] [place] [address] [phone] Test Results Below is a partial list of the most recent Laboratory test results done prior to this discharge. You may have had other tests and procedures not included in this list. Please discuss all test resultswith your provider. BUN POC CARTRIDGE (12/18/2022) ???BUN (POC) POC Cartridge - 45 mg/dL CALCIUM IONIZED POC CART (12/18/2022) ???Ionized Calcium (POC) POC Cartridge - 1.14 mmol/L CHLORIDE POC CARTRIDGE (12/18/2022) ???Chloride (POC) POC Cartridge - 96 mmol/L CREATININE POC CARTRIDGE (12/18/2022) ???Creatinine (POC) POC Cartridge - 8.6 mg/dL GLUCOSE POC CARTRIDGE (12/18/2022) ???Glucose (POC) POC Cartridge - 198 HEMATOCRIT POC CARTRIDGE (12/18/2022) ???Hematocrit (POC) POC Cartridge - 40 % HEMOGLOBIN POC CARTRIDGE (12/18/2022) ???Hemoglobin (POC) POC Cartridge - 13.6 Gm/dL POTASSIUM POC CARTRIDGE (12/18/2022) ???Potassium (POC) POC Cartridge - 4.6 mmol/L SODIUM POC CARTRIDGE (12/18/2022) ???Sodium (POC) POC Cartridge - 135 mmol/L Allergies (NKA means No Known Allergies) Ancef??( trouble breathing ) Lyrica??( mind races ) fentanyl??( trouble breathing ) Problems Active Problems??(16) admit- increased creatinine- ? dehydration?? CAD (coronary artery disease)?? Chronic kidney disease (CKD)?? Chronic systolic congestive heart failure?? donor transplant?? Diabetes mellitus type 1?? ESRD on dialysis?? esrd r/t diabetes?? Foot pain?? Hypertension?? Kidney Biopsy-Borderline ACR, C4d neg?? Neuropathy?? Obese class I?? orchiopexy r/t undescended testicle?? Presence of implanted infusion pump?? Transplanted kidney present?? Education Materials Below is the list of Educational Leaflet Providered with your Discharge Instructions. Valuables and Belongings I fully understand and agree that [facility] accepts no responsibility for all [...] patient Date for Pt to Sign Valuables/Belongings: 12/18/22 06:43:00 ?? Valuables & Belongings ?? Clothes Electronic devices Jewelry Monetary Items Personal devices Miscellaneous Medications (Valuables) Valuables at Bedside Jacket, Pants, Shirt, Shoes, Undergarments Cell phone ?? Money, Purse ? Valuables Sent Home ? Valuables Sent to Security ? Other Discharge Information ? Pulmonary Rehab Status?? Pulmonary Rehab Discharge Status?? Respiratory Rate:??98 br/min??High ? Common Emergency Awareness Tips IS IT [...] are strongly encouraged to quit. Please call [facility] [email or web address] Link at [phone] or [phone] ([phone]) or log in to [email or web address] for referrals to smoking cessation programs. ?? 981 Suicide & Crisis Lifeline is available 17/03 if you or someone you know needs to find a reason to keep living. By calling 668 you'll be connected to a skilled, trained counselor at a crisis center in your area. INPATIENT DISCHARGE INSTRUCTIONS SIGNATURE PAGE WANDERRONI Location:[facility] Registration Date and Time:12/18/2022 05:33 EDT Primary Care Physician: Regina GREENWOOD, Krishna, I RONI VIRAMONTES, have received the above patient education materials/instructions and have verbalized understanding. If ambulance or transport services are being used I further acknowledge being given a choice of service. ?? If you need to contact me, please call me at this number: . Patient/Family Resource Coordinator Name: WANDERRONI Patient/Family Resource Coordinator Signature: Relationship to Patient:___self____ Witness Name/Signature:___P Enrrique JESSICA___ Date:12/18/22____ * Janae Osuna RN: PERFORM, SIGN, VERIFY Event Display: Patient Education Handout Authored Date: [id number] * Janae Osuna RN: PERFORM Event Display: Patient Education Leaflets Authored Date: [id number] Surgery Medical Daystay Surgical Overnight Discharge Instructions ?? 295 Medical Daystay/Surgical Overnight Discharge Instructions ? Since your coordination and judgment may be altered by medication and/or anesthesia, a responsible adult must drive you home from the hospital. ? If you have received medication for pain or sedation while under our care, you should not drive, operate machinery, drink alcohol, or sign any legal documents for 24 hours.?? You should have someone with you at home tonight. ? Remain at home the day of discharge.?? You may be up and about unless otherwise instructed by your physician. ? You may resume your daily prescription medication schedule.?? Any depressant medication should be avoided for 24 hours unless otherwise instructed by your surgeon or anesthesiologist. ? Call your physician for a follow-up appointment.? If you experience unusual or severe pain not relied by your pain medication, excessive bleedingor drainage, persistent nausea and vomiting, excessive swelling or redness, foul odor from incisionsite or fever over 100.6F, you need to call your physician. ? A follow-up phone call by a nurse will be made the day after your procedure.?? If you have stayed with us over night, you will not be receiving a follow-up phone call. ? Nausea and vomiting are a common side effect of prescription pain medication.?? We recommend that pills are not taken on an empty stomach.?? While taking any prescription pain medication you should not drive or drink alcohol. ? * Enrrique JESSICA, Janae: PERFORM Event Display: Patient Education Leaflets Authored Date: [id number] Surgery Medical Daystay Surgical Overnight Discharge Instructions ?? 295 Medical Daystay/Surgical Overnight Discharge Instructions ? Since your coordination and judgment may be altered by medication and/or anesthesia, a responsible adult must drive you home from the hospital. ? If you have received medication for pain or sedation while under our care, you should not drive, operate machinery, drink alcohol, or sign any legal documents for 24 hours.?? You should have someone with you at home tonight. ? Remain at home the day of discharge.?? You may be up and about unless otherwise instructed by your physician. ? You may resume your daily prescription medication schedule.?? Any depressant medication should be avoided for 24 hours unless otherwise instructed by your surgeon or anesthesiologist. ? Call your physician for a follow-up appointment.? If you experience unusual or severe pain not relied by your pain medication, excessive bleedingor drainage, persistent nausea and vomiting, excessive swelling or redness, foul odor from incisionsite or fever over 100.6F, you need to call your physician. ? A follow-up phone call by a nurse will be made the day after your procedure.?? If you have stayed with us over night, you will not be receiving a follow-up phone call. ? Nausea and vomiting are a common side effect of prescription pain medication.?? We recommend that pills are not taken on an empty stomach.?? While taking any prescription pain medication you should not drive or drink alcohol. ? Patient Care team information Care Team Personnel Name: Wild Santos RN Position: [facility] RN Member Role: Primary Care Nurse Name: Lucy Garcia RN Position: [facility] RN Member Role: Primary Care Nurse Name: Julianna Mazariegos RN Position: [facility] RN Member Role: Primary Care Nurse Name: Simin Rosario RN Position: S RN Member Role: Primary Care Nurse Name: Kendal Garcia RN Position: [facility] RN Member Role: Primary Care Nurse Name: Janie Kunz RN Position: [facility] RN Member Role: Primary Care Nurse Name: Krishna Tapia MD Position: [facility] Outreach Member Role: PCP Address: Address: [address] [place] [address]- Name: Miguelangel Cancino MD Position: [facility] Renal MD Member Role: Lifetime Consulting Physician Address: Address: [address], [address] [facility] [place] [address]- Name: Lavonne Mckenzie RN Position: S RN Member Role: Primary Care Nurse Name: Filomena Austin RN Position: [facility] RN Member Role: Primary Care Nurse Name: Faby Guido RN Position: S RN Member Role: Primary Care Nurse Name: Sabrina Damon RN Position: S RN Member Role: Primary Care Nurse Name: Maddy Skelton Position: S RN Member Role: Primary Care Nurse Name: Elise Yao LPN Position: S RN Member Role: Primary Care Nurse Name: Barak Shaw DO Position: [facility] Renal MD Member Role: Lifetime Consulting Physician Address: Address: [address] [place], [place] [address] [place], [place] [address] Name: Tayal Fine Position: [facility] Outreach Member Role: Lifetime Consulting Physician Name: Niki Montes RN Position: [facility] RN Member Role: Primary Care Nurse Name: Stella Calhoun RN Position: [facility] RN Member Role: Primary Care Nurse Name: Wes Lezama Position: [facility] Associate Professional Member Role: Lifetime Consulting Provider Address: Address: [address] [place] [address] Name: Kinjal Macias RN Position: [facility] RN Member Role: Primary Care Nurse Name: Estephania Pizano RN Position: [facility] ED RN W/OE and Tasks Member Role: Primary Care Nurse Name: Alexis Brooke MD Position: [facility] Renal MD Member Role: Lifetime Consulting Physician Address: Address: [address] [place] [address] [address] [facility] [place] [address]- Name: Amanda Vides RN Position: [facility] RN Member Role: Primary Care Nurse Name: Chantelle Villareal RN Position: [facility] RN Member Role: Primary Care Nurse Name: Brisa Michaels RN Position: [facility] RN Member Role: Primary Care Nurse Name: London Chau RN Position: [facility] RN Member Role: Primary Care Nurse Name: Ana Schafer RN Position: [facility] RN Member Role: Primary Care Nurse Name: Liz Aguilera RN Position: [facility] Outreach Member Role: Lifetime Consulting Physician Name: Sudhir Chan Position: S Outreach Member Role: Lifetime Consulting Physician Name: Monique Guzmán RN Position: [facility] RN Member Role: Primary Care Nurse Name: Roselia Crain RN Position: [facility] RN Member Role: Primary Care Nurse Name: Jorge Crews RN Position: [facility] RN Member Role: Primary Care Nurse Address: Address: [address] [place] [address] Name: Marcelo Joy MD Position: [facility] Renal MD Member Role: Lifetime Consulting Physician Address: Address: [address] [place] [address] [facility] [place], [place] [address] Name: Nell Copeland RN Position: [facility] RN Member Role: Primary Care Nurse Name: Star Hagen RN Position: [facility] RN Member Role: Primary Care Nurse Name: Odalis Roy RN Position: [facility] SN RN Member Role: Primary Care Nurse Name: Merline Carlson RN Position: [facility] RN Member Role: Primary Care Nurse Name: Nupur Black RN Position: [facility] RN Member Role: Primary Care Nurse Name: Serena [place] RN Position: [facility] Onco RN Member Role: Primary Care Nurse Name: Maura Tsang RN Position: [facility] RN Member Role: Primary Care Nurse Care Team Related Persons Name: KAYCE PARK Address: home [address] [place] [address] Name: NAZARIO SANTIAGO Address: home [address] [place] [address]
--- OUTSIDE RECORDS SUMMARY | 2023-02-07 12:15 | XMS_ITS | Patient Health Record ---
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 diabetic polyneuropathy (ICD-10 - E10.42) May, Other hammer toe(s) (acquired), left foot (ICD-10 - M20.42) May, Tinea unguium (ICD-1 0 - B35.1) May, Contusion of left lesser toe(s) with damage to nail, initial encounter (ICD-10 - S90.222A) Feb, Type 1 diabetes mellitus with diabetic polyneuropathy (ICD-10 - E10.42) Feb, Ingrowing nail (ICD-10 - L60.0) Feb, Tinea unguium (ICD-1 0 - B35.1) Nov, Xerosis cutis (ICD-1 0 - L85.3) Nov, Type 1 diabetes mellitus with diabetic polyneuropathy (ICD-10 - E10.42) Nov, Tinea unguium (ICD-1 0 - B35.1) Aug, Type 1 diabetes mellitus with diabetic polyneuropathy (ICD-10 - E10.42) Aug, Xerosis cutis (ICD-1 0 - L85.3) Aug, Tinea unguium (ICD-1 0 - B35.1) Aug, Xerosis cutis (ICD-1 0 - L85.3) May, Type 1 diabetes mellitus with diabetic polyneuropathy (ICD-10 - E10.42) May, Other hammer toe(s) (acquired), right foot (ICD-10 - M20.41) May, Other hammer toe(s) (acquired), left foot (ICD-10 - M20.42) May, Tinea unguium (ICD-1 0 - B35.1) Feb, Other hammer toe(s) (acquired), right foot (ICD-10 - M20.41) Feb, Type 1 diabetes mellitus with diabetic polyneuropathy (ICD-10 - E10.42) Feb, Xerosis cutis (ICD-1 0 - L85.3) Feb, Other hammer toe(s) (acquired), left foot (ICD-10 - M20.42) Feb, Tinea unguium (ICD-1 0 - B35.1) December, Xerosis cutis (ICD-1 0 - L85.3) December, Type 1 diabetes mellitus with diabetic polyneuropathy (ICD-10 - E10.42) December, Tinea unguium (ICD-1 0 - B35.1) Sep, Type 1 diabetes mellitus with diabetic polyneuropathy (ICD-10 - E10.42) Sep, Tinea unguium (ICD-1 0 - B35.1) Jul, Type 1 diabetes mellitus with diabetic polyneuropathy (ICD-10 - E10.42) Jul, Tinea unguium (ICD-1 0 - B35.1) Jul, Pain in right toe(s) (ICD-10 - M79.674) Jul, Pain in left toe(s) (ICD-10 - M79.675) Apr, Type 1 diabetes mellitus with diabetic polyneuropathy (ICD-10 - E10.42) Apr, Other hammer toe(s) (acquired), right foot (ICD-10 - M20.41) Apr, Tinea unguium (ICD-1 0 - B35.1) Apr, Pain in right toe(s) (ICD-10 - M79.674) Apr, Other hammer toe(s) (acquired), left foot (ICD-10 - M20.42) Apr, Pain in left toe(s) (ICD-10 - M79.675) Jan, Type 1 diabetes mellitus with diabetic polyneuropathy (ICD-10 - E10.42) Jan, Other hammer toe(s) (acquired), right foot (ICD-10 - M20.41) Jan, Tinea unguium (ICD-1 0 - B35.1) Jan, Pain in right toe(s) (ICD-10 - M79.674) Jan, Other hammer toe(s) (acquired), left foot (ICD-10 - M20.42) Jan, Pain in left toe(s) (ICD-10 - M79.675) Nov, Type 1 diabetes mellitus with diabetic polyneuropathy (ICD-10 - E10.42) Nov, Tinea unguium (ICD-1 0 - B35.1) Nov, Pain in right toe(s) (ICD-10 - M79.674) 17 Nov, 2016 Pain in left toe(s) (ICD-10 - M79.675) 17 Nov, 2016 Xerosis cutis (ICD-1 0 - L85.3) 18 Aug, 2016 Type 1 diabetes mellitus with diabetic polyneuropathy (ICD-10 - E10.42) 18 Aug, 2016 Tinea unguium (ICD-1 0 - B35.1) 18 Aug, 2016 Pain in right toe(s) (ICD-10 - M79.674) 18 Aug, 2016 Pain in left toe(s) (ICD-10 - M79.675) 18 Aug, 2016 Xerosis cutis (ICD-1 0 - L85.3) 19 May, 2016 Type 1 diabetes mellitus with diabetic polyneuropathy (ICD-10 - E10.42) May, Tinea unguium (ICD-1 0 - B35.1) May, Pain in right toe(s) (ICD-10 - M79.674) May, Pain in left toe(s) (ICD-10 - M79.675) Feb, Other hammer toe(s) (acquired), right foot (ICD-10 - M20.41) Feb, Tinea unguium (ICD-1 0 - B35.1) Feb, Other hammer toe(s) (acquired), left foot (ICD-10 - M20.42) Feb, Pain in right toe(s) (ICD-10 - M79.674) Feb, Pain in left toe(s) (ICD-10 - M79.675) Feb, Type 1 diabetes mellitus with diabetic polyneuropathy (ICD-10 - E10.42) December, Tinea unguium (ICD-1 0 - B35.1) December, Type 1 diabetes mellitus with diabetic polyneuropathy (ICD-10 - E10.42) December, Pain in right toe(s) (ICD-10 - M79.674) December, Pain in left toe(s) (ICD-10 - M79.675) December, Arthritis of foot, left (ICD-10 - M19.90) December, Arthritis of foot, right (ICD-10 - M19.90) May, Tinea unguium (ICD-1 0 - B35.1) May, Type 1 diabetes mellitus with diabetic polyneuropathy (ICD-10 - E10.42) May, Pain in right toe(s) (ICD-10 - M79.674) May, Pain in left toe(s) (ICD-10 - M79.675) Feb, Onychomycosis (ICD9-CM - 110.1) Feb, Pain in Limb (ICD9-C M - 729.5) Feb, Diabetic - IDDM/Neuropathy (ICD9-CM - 250.61) Feb, Keratoma (ICD9-CM - 701.1) December, Onychomycosis (ICD9-CM - 110.1) December, Pain in Limb (ICD9-C M - 729.5) December, Diabetic - IDDM/Neuropathy (ICD9-CM - 250.61) December, Keratoma (ICD9-CM - 701.1) Sep, Onychomycosis (ICD9-CM - 110.1) Sep, Pain in Limb (ICD9-C M - 729.5) Sep, Diabetic - IDDM/Neuropathy (ICD9-CM - 250.61) Sep, Keratoma (ICD9-CM - 701.1) Jul, Onychomycosis (ICD9-CM - 110.1) Jul, Pain in Limb (ICD9-C M - 729.5) Jul, Diabetic - IDDM/Neuropathy (ICD9-CM - 250.61) Jul, Keratoma (ICD9-CM - 701.1) Apr, Onychomycosis (ICD9-CM - 110.1) Apr, Pain in Limb (ICD9-C M - 729.5) Apr, Diabetic - IDDM/Neuropathy (ICD9-CM - 250.61) Apr, Keratoma (ICD9-CM - 701.1) Mar, Diabetic - IDDM/Neuropathy (ICD9-CM - 250.61) Mar, Exostosis (ICD9-CM - 726.91) Mar, Pain in Limb (ICD9-C M - 729.5) Feb, Onychomycosis (ICD9-CM - 110.1) Feb, Pain in Limb (ICD9-C M - 729.5) Feb, Diabetic - IDDM/Neuropathy (ICD9-CM - 250.61) Nov, Onychomycosis (ICD9-CM - 110.1) Nov, Hammer toe (ICD9-CM - 735.4) Patient Educated with: DIABETIC FOOT CARE INSTRUCTIONS.pdf (DIABETIC FOOT CARE INSTRUCTIONS.pdf ) Nov, Diabetic - IDDM/Neuropathy (ICD9-CM - 250.61) Nov, Pain in Limb (ICD9-C M - 729.5) May, Metatarsalgia (ICD9-CM - 726.70) Apr, Diabetic - IDDM/Neuropathy (ICD9-CM - 250.61) Apr, Onychomycosis (ICD9-CM - 110.1) Apr, Pain in Limb (ICD9-C M - 729.5) Feb, Diabetic - IDDM/Neuropathy (ICD9-CM - 250.61) Feb, Onychomycosis (ICD9-CM - 110.1) Feb, Pain in Limb (ICD9-C M - 729.5) December, Diabetic - IDDM/Neuropathy (ICD9-CM - 250.61) December, Onychomycosis (ICD9-CM - 110.1) December, Pain in Limb (ICD9-C M - 729.5) Sep, Diabetic - IDDM/Neuropathy (ICD9-CM - 250.61) Sep, Onychomycosis (ICD9-CM - 110.1) Sep, Pain in Limb (ICD9-C M - 729.5) Sep, Hammer toe (ICD9-CM - 735.4) Jun, Diabetic - IDDM/Neuropathy (ICD9-CM - 250.61) Jun, Onychomycosis (ICD9-CM - 110.1) Jun, Pain in Limb (ICD9-C M - 729.5) Apr, Diabetic - IDDM/Neuropathy (ICD9-CM - 250.61) Apr, Onychomycosis (ICD9-CM - 110.1) Apr, Pain in Limb (ICD9-C M - 729.5) Jan, Diabetic - IDDM/Neuropathy (ICD9-CM - 250.61) Jan, Metatarsalgia (ICD9-CM - 726.70) Jan, Tailors Bunion (ICD9-CM - 727.1) December, Diabetic - IDDM/Neuropathy (ICD9-CM - 250.61) December, Onychomycosis (ICD9-CM - 110.1) December, Pain in Limb (ICD9-C M - 729.5) December, Xerosis (ICD9-CM - 706.8) Sep, Diabetic - IDDM/Neuropathy (ICD9-CM - 250.61) Sep, Keratoma (ICD9-CM - 701.1) Sep, Onychomycosis (ICD9-CM - 110.1) Sep, Pain in Limb (ICD9-C M - 729.5) Sep, Hammer toe (ICD9-CM - 735.4) May, Diabetic - IDDM/Neuropathy (ICD9-CM - 250.61) May, Keratoma (ICD9-CM - 701.1) May, Onychomycosis (ICD9-CM - 110.1) May, Pain in Limb (ICD9-C M - 729.5) PLAN OF TREATMENT Treatment Notes Assessment Notes Clinical Notes Other hammer toe(s) (acquire d), right foot Patient Educated with: DIABETIC FOOT CARE INSTRUCTIONS.pdf (DIABETIC FOOT CARE INSTRUCTIONS.pdf) Other hammer toe(s) (acquire d), right foot Patient Educated with: DIABETIC FOOT CARE INSTRUCTIONS.pdf (DIABETIC FOOT CARE INSTRUCTIONS.pdf) Hammer toe Patient Educated wit h: DIABETIC FOOT CARE INSTRUCTIONS.pdf (DIABETIC FOOT CARE INSTRUCTIONS.pdf) Other hammer toe(s) (acquire d), right foot Patient Educated with: DIABETIC FOOT CARE INSTRUCTIONS.pdf (DIABETIC FOOT CARE INSTRUCTIONS.pdf) Other hammer toe(s) (acquire d), right foot Patient Educated with: DIABETIC FOOT CARE INSTRUCTIONS.pdf (DIABETIC FOOT CARE INSTRUCTIONS.pdf) Pending Tests Test Name Order Date 00804-IQYDXXO NAIL, 6 OR MORE 2023-02-03 00681-IWNV SKIN LESIONS, OVER 4 15933-HPRMBRF NAIL, 6 OR MORE 2022-11-25 89477-MNUP SKIN LESIONS, OVER 4 92166-OCLSPJH NAIL, 6 OR MORE 2022-05-09 55583-SIRE SKIN LESIONS, OVER 4 84538-YUWSPPN NAIL, 6 OR MORE 2021-11-12 84321-Naqgchwd Plate 2021-11-12 48047-KBLV SKIN LESIONS, OVER 4 17101-FRCGIGO NAIL, 6 OR MORE 2021-04-04 57806-ANLW SKIN LESIONS, OVER 4 62325- Debride <25 sq cm 2021-01-05 76382-ZRVBGXR NAIL, 6 OR MORE 2020-10-30 02567- Debride <25 sq cm 2020-10-30 73529-INBN SKIN LESIONS, OVER 4 22682- Debride <25 sq cm 2020-07-25 38485-BPDIZAG NAIL, 6 OR MORE 2020-06-01 19974-OOUK SKIN LESIONS, OVER 4 78094-NQZBWWR NAIL, 6 OR MORE 2020-03-09 40651-TACB SKIN LESIONS, OVER 4 57234-YUJWLDF NAIL, 6 OR MORE 2019-12-16 51679-RWJM SKIN LESIONS, OVER 4 83380-NGGAXWM NAIL, 6 OR MORE 2019-09-06 35732-OMVZ SKIN LESIONS, OVER 4 21933-TGJZIJG NAIL, 6 OR MORE 2019-06-03 89060-OONM SKIN LESIONS, OVER 4 21985-Julg. Subungual Hematoma 2019-05-25 0 63855-KQURJOW NAIL, 6 OR MORE 2019-03-22 84064-Cyqknvqz Plate 2019-03-22 57998-JUQA SKIN LESIONS, OVER 4 71472-JPCLYWP NAIL, 6 OR MORE 2018-12-10 17451-ADTT SKIN LESIONS, OVER 4 75400-OYJVTEV NAIL, 6 OR MORE 2018-09-16 23460-OERT SKIN LESIONS, OVER 4 71092-SUCOAGD NAIL, 6 OR MORE 2018-06-08 34349-MBOT SKIN LESIONS, OVER 4 43466-METQFWR NAIL, 6 OR MORE 2018-03-11 17519-YIEK SKIN LESIONS, OVER 4 26031-NYYMYYN NAIL, 6 OR MORE 2017-12-23 07996-NEKE SKIN LESIONS, OVER 4 12800-HXZDNLS NAIL, 6 OR MORE 2017-10-15 36542-KYOJ SKIN LESIONS, OVER 4 18645-ODTQLVU NAIL, 6 OR MORE 2017-07-31 17355-ZOBK SKIN LESIONS, OVER 4 09956-TAQXMUQ NAIL, 6 OR MORE 2017-05-01 77431-KBYH SKIN LESIONS, OVER 4 29800-LVNTYYE NAIL, 6 OR MORE 2017-02-19 19435-HNJL SKIN LESIONS, OVER 4 49779-KSYDIBX NAIL, 6 OR MORE 2016-12-09 11982-RYUU SKIN LESIONS, OVER 4 23075-LTWDGYY NAIL, 6 OR MORE 2016-09-11 96412-ETTR SKIN LESIONS, 2 TO 4 93404-KPAKQGX NAIL, 6 OR MORE 2016-06-12 46925-QOHA SKIN LESIONS, 2 TO 4 69067-ZBUOWGA NAIL, 6 OR MORE 2016-03-20 57659-OQGP SKIN LESIONS, 2 TO 4 19635-FIQGPEF NAIL, 6 OR MORE 2016-01-02 53078-JDRU SKIN LESIONS, OVER 4 08482-STYQYFV NAIL, 6 OR MORE 2015-05-30 81557-HRYI SKIN LESIONS, OVER 4 95295-ISIMHFU NAIL, 6 OR MORE 2015-03-21 01029-XTAN SKIN LESIONS, OVER 4 17676-TCORMOO NAIL, 6 OR MORE 2014-12-27 77398-VFFS SKIN LESIONS, OVER 4 08217-BNTMVXP NAIL, 6 OR MORE 2014-10-18 30300-TVQC SKIN LESIONS, OVER 4 50397-XYNVOAT NAIL, 6 OR MORE 2014-08-02 68960-KYIB SKIN LESIONS, OVER 4 12533-ZBUPPNL NAIL, 6 OR MORE 2014-05-24 96331-APRP SKIN LESIONS, 2 TO 4 09690-LKKWICA NAIL, 6 OR MORE 2014-02-23 03076-MWIL SKIN LESIONS, 2 TO 4 93829-QUNOSGI NAIL, 6 OR MORE 2013-12-06 74432-ZDHS SKIN LESIONS, 2 TO 4 68923-WQEHLPT NAIL, 6 OR MORE 2013-05-17 38552-SNCU SKIN LESIONS, 2 TO 4 88294-IEUSMXG NAIL, 6 OR MORE 2013-03-03 21170-TDZG SKIN LESIONS, 2 TO 4 42489-BWIGESQ NAIL, 6 OR MORE 2012-12-28 75531-VKQN SKIN LESIONS, 2 TO 4 29147-BPYPZCT NAIL, 6 OR MORE 2012-10-21 39306-YYDN SKIN LESIONS, 2 TO 4 32192-QGXOEBV NAIL, 6 OR MORE 2012-07-22 30240-ARYR SKIN LESIONS, 2 TO 4 92683-ISZMILU NAIL, 6 OR MORE 2012-05-11 64120-AIFX SKIN LESIONS, 2 TO 4 X ray : Foot, left 3V 2012-01-30 X ray : Foot, right 3V 2012-01-30 93476-MUEXWVI NAIL, 6 OR MORE 2012-01-03 21616-VAZZ SKIN LESIONS, 2 TO 4 63697-LTCAEBC NAIL, 6 OR MORE 2011-10-04 08192-VRIS SKIN LESIONS, 2 TO 4 19195-CROCXXD NAIL, 6 OR MORE 2011-06-18 12941-CKEF SKIN LESIONS, 2 TO 4 Next Appt Details prn Reason: Provider Name:Rigo Oglesby , 2023-05-07 11:00:00 AM, [address] [facility] [address], [place], [address], Insurance Providers Payer Name Payer Address Payer Phone Insured Name Patient Relationship to Insured Coverage Start Date Coverage End Date Subscriber Number Group Number [facility] [address] [facility] [id number] [phone] Wilfrido Garza Self - patient is the insured [id number]
--- OUTSIDE RECORDS SUMMARY | 2023-02-07 12:15 | XMS_ITS | Continuity of Care Document ---
Author Name Unknown Organization [facility] ter Address [address] [place] [address]- Care Team Providers Care Internet Application Developer Name Role Phone Krishna Tapia MD Primary Care Physician [phone] Encounter [facility] Date(s): 09/02/22 - 10/04/[address] [address] Attending Physician: Sukhdev Torres MD Admitting Physician: Sukhdev Torres MD Referring Physician: Sukhdev Torres MD Allergies, Adverse Reactions, Alerts Substance Reaction [...] 0 Refills, Maintenance, 06/22/22 6:51:00 EDT, Capsule, [facility], Partial fill upon patient request if [...] 08/29/22 8:44:00 EST, Route to Pharmacy Electronically, [facility], Partial fill upon patient request if [...] EVERY DAY, # 180 tablet, 1 Refills, [facility], 173,cm, 01/24/22 16:16:00 EDT, Height, 91.1, kg, [...] 05/23/22 14:38:00 EDT, Route to Pharmacy Electronically, [facility], Partial fill upon patient request if [...] 0 Refills, Maintenance, 06/22/22 6:51:00 EDT, Tablet, [facility], Partial fill upon patient request if [...] MRI Safety Implantable Status Assigning Authority Unknown [id number] Unknown Unknown 09/26/25 Unknown Unknown Active Unknown [...] Care Nurse Name: Janie Kunz RN Position: [facility] RN Member Role: Primary Care Nurse Name: Krishna Tapia MD Position: [facility] Outreach Member Role: PCP Address: Address: [address] [place] [address] [place] [address]- Name: Miguelangel Cancino MD Position: [facility] Renal MD Member Role: Lifetime Consulting Physician Address: Address: [address] [place] [address], [address] [facility] [place] [address]- Name: Lavonne Mckenzie RN Position: S RN [...] Care Nurse Name: Barak Shaw DO Position: [facility] Renal MD Member Role: Lifetime Consulting Physician Address: Address: [address] [facility] [place] [address]- Name: Rody Tayla Position: S Outreach Member Role: Lifetime Consulting Physician Name: Niki Montes RN Position: S RN Member Role: Primary Care Nurse Name: Stella Calhoun RN Position: S RN Member Role: Primary Care Nurse Name: Wes Lezama Position: [facility] Associate Professional Member Role: Lifetime Consulting Provider Address: Address: [address] [place] [address]- Name: Kinjal Macias RN Position: [facility] RN Member Role: Primary Care Nurse Name: Estephania Pizano RN Position: [facility] ED RN W/OE and Tasks Member Role: Primary Care Nurse Name: Zita Barrow RN Position: [facility] RN Member Role: Primary Care Nurse Name: Alexis Brooke MD Position: [facility] Renal MD Member Role: Lifetime Consulting Physician Address: Address: [address] [place] [address] [address] [facility] [place] [address]- Name: Amanda Vides RN Position: [facility] RN Member Role: Primary Care Nurse Name: Chantelle Villareal RN Position: [facility] RN Member Role: Primary Care Nurse Name: Brisa Michaels RN Position: [facility] RN Member Role: Primary Care Nurse Name: London Chau RN Position: [facility] RN Member Role: Primary Care Nurse Name: Ana Schafer RN Position: [facility] RN Member Role: Primary Care Nurse Name: Liz Aguilera RN Position: [facility] Outreach Member Role: Lifetime Consulting Physician Name: Sudhir Chan Position: [facility] Outreach Member Role: Lifetime Consulting Physician Name: Monique Guzmán RN Position: [facility] RN Member Role: Primary Care Nurse Name: Roselia Crain RN Position: [facility] RN Member Role: Primary Care Nurse Name: Jorge Crews RN Position: [facility] RN Member Role: Primary Care Nurse Address: Address: [address] [place] [address]- Name: Marcelo Joy MD Position: [facility] Renal MD Member Role: Lifetime Consulting Physician Address: Address: [address] [place] [address] [facility] [place] [place] [address]- [place] Name: Nell Copeland RN Position: [facility] RN Member Role: Primary Care Nurse Name: Star Hagen RN Position: [facility] RN Member Role: Primary Care Nurse Name: Odalis Roy RN Position: [facility] SN RN Member Role: Primary Care Nurse Name: Merline Carlson RN Position: [facility] RN Member Role: Primary Care Nurse Name: Nupur Black RN Position: [facility] RN Member Role: Primary Care Nurse Name: Serena Allen RN Position: [facility] Onco RN Member Role: Primary Care Nurse Name: Maura Tsang RN Position: [facility] RN Member Role: Primary Care Nurse Care Team Related Persons Name: SHILPAFLORENCIADARLENE KAYCE Address: [address] [place] [address] Name: SANTIAGO NAZARIO Address: home [address] [place] [id number]
--- OUTSIDE RECORDS SUMMARY | 2023-02-07 12:15 | XMS_ITS | Continuity of Care Document ---
Author Name Unknown Organization [facility] Address [address] [place] [address]- Care Team Providers Care High Heel Builder Name Role Phone Krishna Tapia MD Primary Care Physician [place] [facility] [place] 11/10/[address] [address] Attending Physician: AdmKyler escalante Admitting Physician: AdmtrKyler Referring Physician: Admtr, Ar8 Allergies, Adverse Reactions, [...] 06/22/22 6:51:00 EDT, [facility], Partial fill upon patient request [...] opioid drug. Start Date: 11/07/22 Status: Ordered cyanocobalamin 1000 mcg oral tablet [...] Route to Pharmacy Electronically, [facility], Partial fill upon patient request [...] tablet, 1 Refills, [id number], 173,cm, 01/24/22 16:16:00 EDT, Height, 91.1, kg, [...] 11/07/22 16:29:00 EDT, Route to Pharmacy Electronically, [facility], Partial fill upon patient request if [...] 0 Refills, Maintenance, 06/22/22 6:51:00 EDT, Tablet, [facility], Partial fill upon patient request if the prescription is for a scheduleII opioid drug., 172, cm, 06/11/22 16:04:00 EDT, [facility] Start Date: 06/22/22 Status: Ordered sodium zirconium [...] MRI Safety Implantable Status Assigning Authority Unknown [id number] Unknown Unknown 09/26/25 Unknown Unknown Active Unknown Patient Care team information Care Team Personnel Name: Wild Santos RN Position: S RN Member Role: Primary Care Nurse Name: Lucy Garcia RN Position: S RN Member Role: Primary Care Nurse Name: Julianna Mazariegos RN Position: S RN Member Role: Primary Care Nurse Name: Simin Rosario RN Position: [facility] RN Member Role: Primary Care Nurse Name: Janie Kunz RN Position: S RN Member Role: Primary Care Nurse Name: Krishna Tapia MD Position: [facility] Outreach Member Role: PCP Address: Address: [address] [facility] [place] [address]- Name: Miguelangel Cancino MD Position: [facility] Renal MD Member Role: Lifetime Consulting Physician Address: Address: [address], [address] [facility] [place] [address]- [place] Name: Lavonne Mckenzie RN Position: [facility] RN Member Role: Primary Care Nurse Name: Filomena Austin RN Position: [facility] RN Member Role: Primary Care Nurse Name: Faby Guido RN Position: [facility] RN Member Role: Primary Care Nurse Name: Sabrina Damon RN Position: [facility] RN Member Role: Primary Care Nurse Name: Maddy Skelton Position: [facility] RN Member Role: Primary Care Nurse Name: Elise Yao LPN Position: [facility] RN Member Role: Primary Care Nurse Name: Barak Shaw DO Position: [facility] Renal MD Member Role: Lifetime Consulting Physician Address: Address: [address] [place] [address] [address] [facility] [place] [address]- Name: Tayla Fine Position: [facility] Outreach Member Role: Lifetime Consulting Physician Name: Niki Montes RN Position: [facility] RN Member Role: Primary Care Nurse Name: Stella Calhoun RN Position: [facility] RN Member Role: Primary Care Nurse Name: Wes Lezama Position: [facility] Associate Professional Member Role: Lifetime Consulting Provider Address: Address: [address] [place] [address]- [place] Name: Kinjla Macias RN Position: [facility] RN Member Role: Primary Care Nurse Name: Estephania Pizano RN Position: [facility] ED RN W/OE and Tasks Member Role: Primary Care Nurse Name: Alexis Brooke MD Position: [facility] Renal MD Member Role: Lifetime Consulting Physician Address: Address: [address] [facility] [address] [facility] [place] [address]- [place] Name: Amanda Vides RN Position: [facility] RN Member Role: Primary Care Nurse Name: Chantelle Villareal RN Position: [facility] RN Member Role: Primary Care Nurse Name: Brisa Michaels RN Position: [facility] RN Member Role: Primary Care Nurse Name: London Chau RN Position: S RN Member Role: Primary Care Nurse Name: Ana Schafer RN Position: [facility] RN Member Role: Primary Care Nurse Name: Liz Aguilera RN Position: [facility] Outreach Member Role: Lifetime Consulting Physician Name: Sudhir Chan Position: [facility] Outreach Member Role: Lifetime Consulting Physician Name: Monique Guzmán RN Position: [facility] RN Member Role: Primary Care Nurse Name: Roselia Crain RN Position: [facility] RN Member Role: Primary Care Nurse Name: Jorge Crews RN Position: [facility] RN Member Role: Primary Care Nurse Address: Address: [address] [place] [address] Name: Marcelo Joy MD Position: [facility] Renal MD Member Role: Lifetime Consulting Physician Address: Address: [address] [place] [address] [facility] [address] Name: Nell Copeland RN Position: [facility] RN Member Role: Primary Care Nurse Name: Star Hagen RN Position: [facility] RN Member Role: Primary Care Nurse Name: Odalis Roy RN Position: [facility] SN RN Member Role: Primary Care Nurse Name: Merline Carlson RN Position: [facility] RN Member Role: Primary Care Nurse Name: Nupur Black RN Position: [facility] RN Member Role: Primary Care Nurse Name: Serena Allen RN Position: [facility] Onco RN Member Role: Primary Care Nurse Name: Maura Tsang RN Position: [facility] RN Member Role: Primary Care Nurse Care Team Related Persons Name: KAYCE PARK Address: [address] [place] [address] Name: SANTIAGO NAZARIO Address: home [address] [place] [address]
[2023-02-07 12:57] VITALS: BMI 30.4
--- NOTE | 2023-02-07 13:01 | MHC.SHP ---
Pre-Procedural Eval Section A Date of Service: 02/07/23 The patient is an INPATIENT: No The History & Physical has been completed within 30 days and I have reviewed it.: No Section B Chief Complaint: Colon cancer screening, history of colon polyps Present Medications: see Short Stay Collaborative assessment Medical History: Significant History (Diabetes Glaucoma HTN (hypertension) Kidney failure Kidney transplant rejection Neuropathy) History of Previous Operations: Relevant previous surgery/procedure and date(s) (hx of cardiac cath, hx of EGD and colon, hx of renal transplant) Allergies: Allergies Allergy/AdvReac Type Severity Reaction Status Date / Time cefazolin [From ANCEF] Allergy Intermediate ? Verified 02/04/23 16:10 ALLERGY-COUGH,SOB fentanyl [FENTANYL] Allergy Intermediate ? ALLERGY, Verified 02/04/23 16:10 COUGH,SOB pregabalin [From Lyrica] Allergy Nausea Verified 02/04/23 16:10 Review of Systems Sugical H&P ROS: Negative: Constitution, Cardiovascular, Respiratory and Gastrointestinal Exam Surgical H&P Exam: Normal: Heart, Normal: Lungs, Normal: Extremities and Normal: Abdomen Plan Diagnosis/Plan: Unchanged I have reviewed the history and physical and performed a pertinent physical examination on my patient. No changes have occurred unless specified. Time Spent With Patient Time: Total time managing care of this patient today ____ minutes.
[2023-02-07 13:07] VITALS: BP 133/54; PULSE 66; RESP 16; TEMP 36.5; O2SAT 99
[2023-02-07 13:13] LABS: Anion Gap 21 (12-20); Carbon Dioxide 26 mmol/L (22-29); Chloride 91 mmol/L (96-108); Potassium 3.9 mmol/L (3.3-5.1); Sodium 134 mmol/L (135-145)
[2023-02-07] MEDS: 0.9 % Sodium Chloride 1,000 ML 50 ML IVCONT (13:22)
[2023-02-07 13:30] LABS: Glucose, Whole Blood 257 mg/dL (60-115)
[2023-02-07 14:23] VITALS: BP 90/34; PULSE 64; RESP 16; TEMP 36.1; O2SAT 96
--- NOTE | 2023-02-07 14:24 | P.OP_ITS ---
Operative Note Operative Note Date of Service: 02/07/23 Narrative: COLONOSCOPY TILL CECUM WITH BIOPSIES Pre-op diagnosis: Colon cancer screening, follow-up of colon polyps, family history of colon cancer Post-op diagnosis:? Colon polyp, diverticulosis Endoscopist:? Josh Fernandez MD Anesthesia:?MAC Consent: Indications for the procedure and potential complications of bleeding, perforation, reaction to medications and missed diagnosis were discussed with the patient and informed consent was obtained. Instrument: Olympus PCF H 190 L variable stiffness pediatric colonoscope Monitoring: Vital signs and clinical assessment, intermittent blood pressure monitoring, continuous EKG monitoring, Pulse oximetry and Carbon Dioxide monitoring were done throughout the procedure. Please see anesthesia flowsheet. Colon withdrawl time was 17 minutes. Procedure: The patient was placed in the left lateral decubitis position and pre-procedure medications were administered. After a digital rectal examination of the ano-rectum, the video colonoscope was inserted into the rectum and advanced through the colon to the cecum. The colonoscope was slowly withdrawn in a retrograde panoramic fashion and the colon mucosa was carefully examined including a retroflexed view of the rectum. Findings and interventions are described below. Procedure Difficulty: Colon was long and tortuous and there was spasm and some loop formation Findings: Terminal Ileum: Not evaluated Cecum: A 4-5 mm sessile polyp - removed with a cold biopsy Ascending Colon: Normal Transverse Colon: Normal Descending Colon: Moderate diverticulosis Sigmoid Colon: Moderate diverticulosis Rectum: Normal Ano-rectum: Normal Colon preparation: Good after copious irrigation Impression and Post Procedure Diagnosis: Colonoscopy Findings: One small polyp removed Moderate diverticulosis seen in the left colon Plan: Await pathology results Patient has an appointment on 02/21/23 in the GI Clinic with Christine Quintero FNP- BC. Repeat Colonoscopy interval based on path results - in 5 years if polyps are adenomatous and due to a hx of adenomatous colon polyps and family hx of colon cancer. Above findings were reviewed with the patient and colon polyps and diverticulosis handouts were given in the discharge area
[2023-02-07 14:38] VITALS: BP 115/58; PULSE 59; RESP 16; TEMP 36.3; O2SAT 99
[2023-02-07 14:50] LABS: Glucose, Whole Blood 189 mg/dL (60-115)
--- NOTE | 2023-02-07 14:57 | PC.NURSE ---
see poc as ordered by Krysten watters.
== END 2023-02-07 15:23 | disposition home or self-care (01) ==
PROVIDERS: Nurse Practitioner; PCP Internal Medicine; Visit Provider Internal Medicine Gastroenterology
PROC: 0DJD8ZZ Inspection of Lower Intestinal Tract, Via Natural or Artificial Opening Endoscopic (ICD-10-PCS; CPT 45378; principal; 2023-02-07 13:40)
DX: Z12.11 Encounter for screening for malignant neoplasm of colon (principal); Z86.010 Personal history of colon polyps; Z80.0 Family history of malignant neoplasm of digestive organs; K63.5 Polyp of colon; K57.30 Diverticulosis of large intestine without perforation or abscess without bleeding; E11.40 Type 2 diabetes mellitus with diabetic neuropathy, unspecified; E11.22 Type 2 diabetes mellitus with diabetic chronic kidney disease; I12.0 Hypertensive chronic kidney disease with stage 5 chronic kidney disease or end stage renal disease; N18.6 End stage renal disease; Z99.2 Dependence on renal dialysis; Z96.41 Presence of insulin pump (external) (internal); Z94.0 Kidney transplant status; Z79.4 Long term (current) use of insulin; T86.11 Kidney transplant rejection; I25.10 Atherosclerotic heart disease of native coronary artery without angina pectoris; Z79.01 Long term (current) use of anticoagulants; Z79.82 Long term (current) use of aspirin; Z79.899 Other long term (current) drug therapy; Z88.1 Allergy status to other antibiotic agents; Z88.8 Allergy status to other drugs, medicaments and biological substances
CPT/HCPCS: 45380; 36415; 80051; 82947; 88305

== ENCOUNTER 2023-02-21 12:03 | Outpatient (AMB) | payer OTHER, MEDICAID, SELFPAY ==
[2023-02-21 12:07] VITALS: BP 115/58; PULSE 73; BMI 33.2
--- NOTE | 2023-02-21 12:07 | MHC.OFFVIS ---
Intake Vital Signs 02/21/23 12:07 Height 5 ft 8 in Weight 218 lb 4.122 oz BMI 33.2 BP 115/58 L Blood Pressure Location Lt brachial Position Sitting Pulse 73 Intake Visit Reasons: S/P [place] Screening Intake Note: Wilfrido presents in office as a est.patient for a post-op for colo pt got it done 02.07.23 PT CC: pt reports having no concerns pt denies any other GI Issues Urban Sociologist Required: No Accompanied by: Self / Same As Patient Allergies cefazolin [From ANCEF] Allergy (Intermediate, Verified 02/21/23 12:08) ? ALLERGY-COUGH,SOB fentanyl [FENTANYL] Allergy (Intermediate, Verified 02/21/23 12:08) ? ALLERGY, COUGH,SOB pregabalin [From Lyrica] Allergy (Verified 02/21/23 12:08) Nausea HPI S/P [place] Screening HPI Details LAST VISIT: Screen for colon cancer .? Patient denies any GI, cardiac or respiratory symptoms.? Denies any issues with anesthesia in the past.? Denies any history of sleep apnea.? No history infectious diseases in the past or present.? On low-dose aspirin and Plavix for ? CAD. Will need risk stratification before going for procedure. 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 [facility]. Patient's father diagnosed with colorectal cancer in his 60s. Last colonoscopy in 2016 showed tubular adenoma. Patient in is on a waiting list for renal transplant of his right kidney. On temporary dialysis. Denies having any issues. Patient denies melena, hematochezia, unintentional weight loss or ribbon like stools.? Discussed at length the pre-procedure,? prep, diet & medications as well as what to expect prior, during and after the procedure.?? Stressed the importance of good bowel prep. ?Recommended the use of Vaseline or Calmoseptine OTC & baby wipes with bowel movements to promote comfort.? ?Patient verbalizes understanding and agrees to plan of care.? He was given the opportunity to ask questions and all questions answered.? We will see him after the procedure.? COLONOSCOPY: Findings: Terminal Ileum: Not evaluated Cecum:? A 4-5 mm sessile polyp - removed with a cold biopsy Ascending Colon:? Normal Transverse Colon:? Normal Descending Colon:? Moderate diverticulosis Sigmoid Colon:? Moderate diverticulosis Rectum:? Normal Ano-rectum:? Normal Colon preparation:? Good after copious irrigation Impression and Post Procedure Diagnosis: Colonoscopy Findings: One small polyp removed Moderate diverticulosis seen in the left colon Plan: Await pathology results Patient has an appointment on 02/21/23 in the GI Clinic with Christine Quintero FNP-BC. Repeat Colonoscopy interval based on path results - in 5 years if polyps are adenomatous and due to a hx of adenomatous colon polyps and family hx of colon cancer PATHOLOGY REPORT: Diagnosis Cecum, polypectomy:? Colonic mucosa with prominent lymphoid aggregates and mild surface hyperplastic changes; no dysplasia seen. TODAY'S VISIT Patient is here today for follow-up and to discuss colonoscopy results. Patient denies any ill effects from the prep, anesthesia or procedure itself. States that he has been feeling well after the procedure. Moving his bowels daily without any issues. Patient denies any GI concerning symptoms. Biopsy showed colonic mucosa with lymphoid aggregates without dysplasia or carcinoma. Patient denies melena, hematochezia, unintentional weight loss or ribbon like stools. Patient denies any dyspepsia, dysphagia or odynophagia [facility] Medical History Asthma CAD (coronary artery disease) Dependence on renal dialysis Diabetes Elevated cholesterol GERD (gastroesophageal reflux disease) Glaucoma HTN (hypertension) Kidney failure Kidney transplant rejection Neuropathy On beta candelario at home Uses walker Surgical History History of cardiac cath History of esophagogastroduodenoscopy (EGD) History of kidney transplant Hx of colonoscopy S/P arteriovenous (AV) graft placement S/P trigger finger release Social History Alcohol intake: never Patient Tobacco Use Status: Never used Tobacco Advance Directives Date on File: 01/31/21 Current occupational status: unemployed Current occupation: Right Handed Review of Systems Const Denies weight gain and Denies weight loss ENT Reports no additional complaints, Denies dysphagia and Denies odynophagia Card Reports no additional complaints Resp Reports no additional complaints GI Denies abdominal pain, Denies belching, Denies melena, Denies bloating, Denies change in bowel habits, Denies dysphagia, Denies excessive flatus, Denies dyspepsia, Denies heartburn, Denies diarrhea, Denies loose stools, Denies nausea, Denies odynophagia and Denies vomiting Reports no additional complaints Musc Reports no additional complaints Neuro Reports no additional complaints Psych Reports no additional complaints Endo Reports no additional complaints Physical Exam Vital Signs: Last Vital Signs Pulse 73 02/21/23 12:07 BP 115/58 L 02/21/23 12:07 BMI result Body Mass Index 33.2 Const General: healthy appearing, no acute distress and well developed Nutritional Appearance: obese Orientation/consciousness: patient oriented x3 HEENT Head: Yes normal to inspection, Yes normocephalic and Yes atraumatic Face and sinus: Yes normal facial exam Mouth: Normal oral and palatal mucosa present Throat: Yes posterior oropharynx normal, Yes tonsils normal and Yes uvula midline Eyes General: appearance normal, both eyes and all related structures Neck Neck: Yes normal visual inspection, Yes full ROM and Yes trachea midline Thyroid: Thyroid normal Resp Effort & Inspection: normal respiratory effort, able to speak in complete sentences, no tracheal deviation and symmetric chest movement Auscultation: clear to auscultation bilaterally Cardio Rate: regular rate Heart sounds: S1 normal heart sound present and S2 normal heart sound present GI Inspection: Yes normal to inspection, No distended and Yes obesity Palpation (GI): Soft to palpation, not firm, nontender and No hepatosplenomegaly present Auscultation: normal bowel sounds General: Yes no CVA tenderness Back/Spine/Pelvis Back: no CVA tenderness Skin General skin exam: elasticity normal, turgor normal and dry skin Neuro General: patient oriented x3 Psych Appearance: grossly normal Mental Status: mental status grossly normal Speech and movement: Normal speech and movement present Affect: normal affect Assessment & Plan Assessment & Plan (1) Status post colonoscopy: Code(s): Z98.890 - Other specified postprocedural states Plan: Colorectal screening in 5 years due to family history colon is cancer. Patient will call our office sooner if he will have any concerning symptoms. He is agreeable to this plan and verbalizes understanding of instructions. He was given the opportunity to ask questions and all questions answered. Thank you for allowing me to participate in his care Coding Level of Care Code Est Pt Level 3 (97735) Diagnoses Status post colonoscopy Z98.890 Time Spent (min) 25 Comment 15 minutes spent with patient and additional 10 minutes spent reviewing his records
== END 2023-02-21 12:32 | disposition home or self-care (01) ==
PROVIDERS: PCP Internal Medicine; Visit Provider Nurse Practitioner Family
DX: Z98.890 Other specified postprocedural states (principal)
CPT/HCPCS: 99213

== ENCOUNTER → 2023-02-21 12:03 | Outpatient (BNVA) | payer OTHER, MEDICAID, SELFPAY | PROVIDERS: PCP Internal Medicine; Visit Provider Nurse Practitioner Family ==

== ENCOUNTER 2023-03-28 06:37 | Day surgery (SDC) | payer OTHER, MEDICAID, SELFPAY ==
[2023-03-25 09:40] VITALS: BMI 30.4
--- NOTE | ~2023-03-28 | FL_ITS ---
EXAMINATION: XR FLUOROSCOPY WITH IMAGES CLINICAL INFORMATION: Spinal cord stimulation trial. COMPARISON: None available. TECHNIQUE: Fluoroscopy Supervised By: Dr. Lloyd Blackman. Fluoroscopy Time: 1.7 minutes. Cumulative Dose: 48.5 mGy. DAP: 6.94 Gycm2. Images: 3. FINDINGS: Images demonstrate 2 leads projecting over the lower thoracic spinal canal. FL/FL guidance in OR IMPRESSION: Fluoroscopic guidance for spinal cord stimulation trial.
--- OUTSIDE RECORDS SUMMARY | 2023-03-28 06:39 | XMS_ITS | Continuity of Care Document ---
Author Name Unknown Organization [facility] Address [address] [place] [address]- Care Team Providers Care Sack Cleaning Hand Name Role Phone Krishna Tapia MD Primary Care Physician [phone] [place] [facility] [place](s): 09/16/22 - 03/10/[address] [address]- Encounter Diagnosis Muscle weakness (generalized)(Final) - Discharge Disposition: A-D/C Home Attending Physician: Krishna Tapia MD Admitting Physician: Krishna Tapia MD Referring Physician: Krishna Tapia MD Allergies, [...] 0 Refills, Maintenance, 06/22/22 6:51:00 EDT, Capsule, [facility], Partial fill upon patient request if [...] 08/29/22 8:44:00 EST, Route to Pharmacy Electronically, [facility], Partial fill upon patient request if [...] EVERY DAY, # 180 tablet, 1 Refills, [facility] [id number], 173,cm, 01/24/22 16:16:00 EDT, Height, 91.1, kg, [...] 11/07/22 16:29:00 EDT, Route to Pharmacy Electronically, [facility], Partial fill upon patient request if [...] MRI Safety Implantable Status Assigning Authority Unknown [id number] Unknown Unknown 09/26/25 Unknown Unknown Active Unknown [...] MD Position: [facility] Outreach Member Role: PCP Address: Address: [address] [place] [address] [place] [address]- Name: Miguelangel Cancino MD Position: [facility] Renal MD Member Role: Lifetime Consulting Physician Address: Address: [address] [place] [address], [address] [facility] [place] [address]- Name: Lavonne Mckenzie RN Position: S RN Member Role: Primary Care Nurse Name: Filomena Austin RN Position: S RN Member Role: Primary Care Nurse Name: Faby Guido RN Position: S RN Member Role: Primary Care Nurse Name: Maddy Skelton Position: S RN Member Role: Primary Care Nurse Name: Elise Yoa LPN Position: S RN Member Role: Primary Care Nurse Name: Barak Shaw DO Position: [facility] Renal MD Member Role: Lifetime Consulting Physician Address: Address: [address] [place], [place] [address] [place] [address]- Name: Tayla Fine Position: S Outreach Member Role: Lifetime Consulting Physician Name: Niki Montes RN Position: S RN Member Role: Primary Care Nurse Name: Stella Calhoun RN Position: [facility] RN Member Role: Primary Care Nurse Name: Wes Lezama Position: [facility] Associate Professional Member Role: Lifetime Consulting Provider Address: Address: [address] [place] [address] Name: Kinjal Macias RN Position: [facility] RN Member Role: Primary Care Nurse Name: Estephania Pizano RN Position: [facility] ED RN W/OE and Tasks Member Role: Primary Care Nurse Name: Alexis Brooke MD Position: [facility] Renal MD Member Role: Lifetime Consulting Physician Address: Address: [address] [place] [address] [address] [facility] [place] [address]- Name: Chantelle Villareal RN Position: [facility] RN Member Role: Primary Care Nurse Name: Brisa Michaels RN Position: [facility] RN Member Role: Primary Care Nurse Name: London Chau RN Position: [facility] RN Member Role: Primary Care Nurse Name: Ana Schafer RN Position: [facility] RN Member Role: Primary Care Nurse Name: Liz Aguilera RN Position: [facility] Outreach Member Role: Lifetime Consulting Physician Name: Sudhir Chan Position: [facility] Outreach Member Role: Lifetime Consulting Physician Name: Monique Guzmán RN Position: [facility] RN Member Role: Primary Care Nurse Name: Roselia Crain RN Position: [facility] RN Member Role: Primary Care Nurse Name: Jorge Crews RN Position: [facility] RN Member Role: Primary Care Nurse Address: Address: [address] [place] [address]- Name: Marcelo Joy MD Position: [facility] Renal MD Member Role: Lifetime Consulting Physician Address: Address: [address] [place] [address] [facility] [place] [address]- Name: Nell Copeland RN Position: [facility] RN Member Role: Primary Care Nurse Name: Star Hagen RN Position: [facility] RN Member Role: Primary Care Nurse Name: Odalis Roy RN Position: [facility] SN RN Member Role: Primary Care Nurse Name: Merline Carlson RN Position: [facility] RN Member Role: Primary Care Nurse Name: Nupur Black RN Position: [facility] RN Member Role: Primary Care Nurse Name: Serena Allen RN Position: [facility] Onco RN Member Role: Primary Care Nurse Name: Maura Tsang RN Position: S RN Member Role: Primary Care Nurse Care Team Related Persons Name: KAYCE PARK Address: [address] [place] [address] Name: ARAVINDSANTIAGO Address: home [address] [place] [id number]
--- OUTSIDE RECORDS SUMMARY | 2023-03-28 06:40 | XMS_ITS | Continuity of Care Document ---
Author Name Unknown Organization [facility] Address [address] [place] [address]- Care Team Providers Care Water Treatment Operator Name Role Phone Krishna Tapia MD Primary Care Physician [phone] Encounter [facility] Date(s): 01/08/23 - 02/07/23 [facility] [address] [place] [address]- Allergies, Adverse Reactions, Alerts Substance Reaction Severity [...] 0 Refills, Maintenance, 06/22/22 6:51:00 EDT, Capsule, [facility], Partial fill upon patient [...] 08/29/22 8:44:00 EST, Route to Pharmacy Electronically, [facility], Partial fill [...] EVERY DAY, # 180 tablet, 1 Refills, [id number], 173,cm, 01/24/22 16:16:00 EDT, Height, 91.1, kg, [...] 11/07/22 16:29:00 EDT, Route to Pharmacy Electronically, [facility], Partial fill upon patient request if [...] MRI Safety Implantable Status Assigning Authority Unknown [id number] Unknown Unknown 09/26/25 Unknown Unknown Active Unknown [...] Care Nurse Name: Janie Kunz RN Position: [facility] RN Member Role: Primary Care Nurse Name: Krishna Tapia MD Position: [facility] Outreach Member Role: PCP Address: Address: [address] [facility] [place] [address]- Name: Miguelangel Cancino MD Position: [facility] Renal MD Member Role: Lifetime Consulting Physician Address: Address: [address] [place] [address], [address] [facility] [place] [address]- [place] Name: Lavonne Mckenzie RN Position: [facility] RN Member Role: Primary Care Nurse Name: Filomena Austin RN Position: [facility] RN Member Role: Primary Care Nurse Name: Faby Guido RN Position: S RN Member Role: Primary Care Nurse Name: Sabrina Damon RN Position: S RN Member Role: Primary Care Nurse Name: Maddy Skelton Position: S RN Member Role: Primary Care Nurse Name: Elise Yao LPN Position: S RN Member Role: Primary Care Nurse Name: Barak Shaw DO Position: [facility] Renal MD Member Role: Lifetime Consulting Physician Address: Address: [address] [facility] [address] [facility] [place] [address]- [place] Name: Tayla Fine Position: [facility] Outreach Member Role: Lifetime Consulting Physician Name: Niki Montes RN Position: S RN Member Role: Primary Care Nurse Name: Stella Calhoun RN Position: S RN Member Role: Primary Care Nurse Name: Wes Lezama Position: [facility] Associate Professional Member Role: Lifetime Consulting Provider Address: Address: [address] [place] [address]- Name: Kinjal Macias RN Position: [facility] RN Member Role: Primary Care Nurse Name: Estephania Pizano RN Position: [facility] ED RN W/OE and Tasks Member Role: Primary Care Nurse Name: Alexis Brooke MD Position: [facility] Renal MD Member Role: Lifetime Consulting Physician Address: Address: [address] [place] [address] [address] [facility] [place], [place] [address]- Name: Amanda Vides RN Position: [facility] RN Member Role: Primary Care Nurse Name: Chantelle Villareal RN Position: [facility] RN Member Role: Primary Care Nurse Name: Brisa Michaels RN Position: [facility] RN Member Role: Primary Care Nurse Name: London Chau RN Position: [facility] ED RN W/OE and Tasks Member Role: Primary Care Nurse Name: Ana Schafer RN Position: [facility] RN Member Role: Primary Care Nurse Name: Liz Aguilera RN Position: [facility] Outreach Member Role: Lifetime Consulting Physician Name: Sudhir Chan Position: [facility] Outreach Member Role: Lifetime Consulting Physician Name: Monique Guzmán RN Position: [facility] RN Member Role: Primary Care Nurse Name: Roselia Crain RN Position: [facility] RN Member Role: Primary Care Nurse Name: Jorge Crews RN Position: [facility] RN Member Role: Primary Care Nurse Address: Address: [address] [place] [address]- Name: Marcelo Joy MD Position: [facility] Renal MD Member Role: Lifetime Consulting Physician Address: Address: [address] [place] [address] [facility] [place] [address]- Name: Nell Copeland RN Position: [facility] RN Member Role: Primary Care Nurse Name: Star Hagen RN Position: [facility] RN Member Role: Primary Care Nurse Name: Odalis Roy RN Position: [facility] SN RN Member Role: Primary Care Nurse Name: Merline Carlson RN Position: [facility] RN Member Role: Primary Care Nurse Name: Nupur Black RN Position: [facility] RN Member Role: Primary Care Nurse Name: Serena Aleln RN Position: [facility] Onco RN Member Role: Primary Care Nurse Name: Maura Tsang RN Position: S RN Member Role: Primary Care Nurse Care Team Related Persons Name: KAYCE PARK Address: home [address] [place] [address] Name: NAZARIOSANTIAGO Address: [address] [address]
--- OUTSIDE RECORDS SUMMARY | 2023-03-28 06:42 | XMS_ITS | Continuity of Care Document ---
Author Name Unknown Organization [facility] Address [address] [place] [address]- Care Team Providers Care Baseball Scout Name Role Phone Krishna Tapia MD Primary Care Physician [phone] Encounter [facility] Date(s): 02/03/23 - 03/05/23 [facility] [address] [place] [id number] Allergies, Adverse Reactions, Alerts Substance Reaction Severity [...] 0 Refills, Maintenance, 06/22/22 6:51:00 EDT, Capsule, [facility], Partial fill upon patient request [...] 08/29/22 8:44:00 EST, Route to Pharmacy Electronically, [facility], Partial fill upon patient request [...] EVERY DAY, # 180 tablet, 1 Refills, [facility], 173,cm, 01/24/22 16:16:00 EDT, Height, 91.1, kg, [...] 11/07/22 16:29:00 EDT, Route to Pharmacy Electronically, [facility], Partial fill upon patient request if [...] MRI Safety Implantable Status Assigning Authority Unknown [id number] Unknown Unknown 09/26/25 Unknown Unknown Active Unknown [...] Care Nurse Name: Janie Kunz RN Position: [facility] RN Member Role: Primary Care Nurse Name: Krishna Tapia MD Position: [facility] Outreach Member Role: PCP Address: Address: [address] [place] [address] [place] [address]- Name: Miguelangel Cancino MD Position: [facility] Renal MD Member Role: Lifetime Consulting Physician Address: Address: [address] [place] [address], [address] [facility] [place] [address]- [place] Name: Lavonne Mckenzie RN Position: [facility] RN Member Role: Primary Care Nurse Name: Filomena Austin RN Position: [facility] RN Member Role: Primary Care Nurse Name: Faby Guido RN Position: [facility] RN Member Role: Primary Care Nurse Name: Maddy Skelton Position: S RN Member Role: Primary Care Nurse Name: Elise Yao LPN Position: S RN Member Role: Primary Care Nurse Name: Barak Shaw DO Position: [facility] Renal MD Member Role: Lifetime Consulting Physician Address: Address: [address] [place] [address] [address] [facility] [place] [address]- [place] Name: Tayla Fine Position: [facility] Outreach Member Role: Lifetime Consulting Physician Name: Niki Montes RN Position: [facility] RN Member Role: Primary Care Nurse Name: Stella Calhoun RN Position: S RN Member Role: Primary Care Nurse Name: Wes Lezama Position: [facility] Associate Professional Member Role: Lifetime Consulting Provider Address: Address: [address] [place] [address]- Name: Kinjal Macias RN Position: [facility] RN Member Role: Primary Care Nurse Name: Estephania Pizano RN Position: [facility] ED RN W/OE and Tasks Member Role: Primary Care Nurse Name: Alexis Brooke MD Position: [facility] Renal MD Member Role: Lifetime Consulting Physician Address: Address: [address] [place] [address] [address] [facility] [place] [address]- Name: Chantelle Villareal RN Position: [facility] RN Member Role: Primary Care Nurse Name: Brisa Michaels RN Position: [facility] RN Member Role: Primary Care Nurse Name: London Chau RN Position: [facility] RN Member Role: Primary Care Nurse Name: Ana Schafer RN Position: [facility] RN Member Role: Primary Care Nurse Name: Liz Aguilera RN Position: [facility] Outreach Member Role: Lifetime Consulting Physician Name: Sudhir Chan Position: [facility] Outreach Member Role: Lifetime Consulting Physician Name: Monique Guzmán RN Position: [facility] RN Member Role: Primary Care Nurse Name: Roselia Crain RN Position: [facility] RN Member Role: Primary Care Nurse Name: Jorge Crews RN Position: [facility] RN Member Role: Primary Care Nurse Address: Address: [address] [place] [address]- Name: Marcelo Joy MD Position: [facility] Renal MD Member Role: Lifetime Consulting Physician Address: Address: [address] [place] [address] [facility] [place] [address]- Name: Nell Copeland RN Position: [facility] RN Member Role: Primary Care Nurse Name: Star Hagen RN Position: [facility] RN Member Role: Primary Care Nurse Name: Odalis Roy RN Position: [facility] SN RN Member Role: Primary Care Nurse Name: Merline Carlson RN Position: [facility] RN Member Role: Primary Care Nurse Name: Nupur Black RN Position: [facility] RN Member Role: Primary Care Nurse Name: Serena Allen RN Position: [facility] Onco RN Member Role: Primary Care Nurse Name: Maura Tsang RN Position: [facility] RN Member Role: Primary Care Nurse Care Team Related Persons Name: KAYCE PARK Address: home [address] [place] [address] Name: SANTIAGO NAZARIO Address: [address] [place] [address]
--- OUTSIDE RECORDS SUMMARY | 2023-03-28 06:42 | XMS_ITS | Continuity of Care Document ---
Author Name Unknown Organization [facility] Address [address] [place] [address]- Care Team Providers Care International Marketing Specialist Name Role Phone Krishna Tapia MD Primary Care Physician Encounter [facility] Date(s): 09/25/22 - 03/20/[address] [address]- Encounter Diagnosis Non-ST elevation (NSTEMI) myocardial infarction(Final) - Discharge Disposition: A-D/C Home Attending Physician: Daniel Brantley DO Admitting Physician: Daniel Brantley DO Referring Physician: Kailey [place], [facility] Allergies, Adverse Reactions, Alerts Substance Reaction [...] 0 Refills, Maintenance, 06/22/22 6:51:00 EDT, Capsule, [facility], Partial fill upon patient request if [...] 08/29/22 8:44:00 EST, Route to Pharmacy Electronically, [facility], Partial fill upon patient request if [...] EVERY DAY, # 180 tablet, 1 Refills, [facility], 173,cm, 01/24/22 16:16:00 EDT, Height, 91.1, kg, [...] 11/07/22 16:29:00 EDT, Route to Pharmacy Electronically, [facility], Partial fill upon patient request if [...] MRI Safety Implantable Status Assigning Authority Unknown [id number] Unknown Unknown 09/26/25 Unknown Unknown Active Unknown Note * Event Display: Cardiac Rehab Telemetry Report Authored Date: * Event Display: Cardiac Rehab Telemetry Report Authored Date: * Event Display: Cardiac Rehab Telemetry Report Authored Date: Patient Care team information Care Team Personnel Name: Wild Santos RN Position: [facility] RN Member Role: Primary Care Nurse Name: Lucy Garcia RN Position: [facility] RN Member Role: Primary Care Nurse Name: Julianna Mazariegos RN Position: [facility] RN Member Role: Primary Care Nurse Name: Simin Rosario RN Position: [facility] RN Member Role: Primary Care Nurse Name: Kendal Garcia RN Position: [facility] RN Member Role: Primary Care Nurse Name: Janie Kunz RN Position: [facility] RN Member Role: Primary Care Nurse Name: Krishna Tapia MD Position: [facility] Outreach Member Role: PCP Address: Address: [address] [place] [address] [place] [address]- Name: Miguelangel Cancino MD Position: [facility] Renal MD Member Role: Lifetime Consulting Physician Address: Address: [address] [place] [address], [address] [facility] [place] [address]- Name: Lavonne Mckenzie RN [facility]: [facility] Member Role: Lifetime Consulting Physician Address: Address: [address] [place] [address] [address] [facility] [place] [address]- [place] Name: RodyTayla richards Position: [facility] Outreach Member Role: Lifetime Consulting Physician Name: Niki Montes RN Position: S RN Member Role: Primary Care Nurse Name: Stella Calhoun RN Position: S RN Member Role: Primary Care Nurse Name: Wes Lezama Position: [facility] Associate Professional Member Role: Lifetime Consulting Provider Address: Address: [address] [place] [address]- Name: Kinjal Macias RN Position: [facility] RN Member Role: Primary Care Nurse Name: Estephania Pizano RN Position: [facility] ED RN W/OE and Tasks Member Role: Primary Care Nurse Name: Alexis Brooke MD Position: [facility] Renal MD Member Role: Lifetime Consulting Physician Address: Address: [address] [place] [address] [address] [facility] [place] [place] [address]- Name: Chantelle Villareal RN Position: [facility] RN Member Role: Primary Care Nurse Name: Brisa Michaels RN Position: [facility] RN Member Role: Primary Care Nurse Name: London Chau RN Position: [facility] RN Member [...] Member Role: Primary Care Nurse Address: Address: [address] [place] [address]- [place] Name: Marcelo Joy MD Position: [facility] Renal MD Member Role: Lifetime Consulting Physician Address: Address: [address] [place] [address] [facility] [place] [address]- Name: Nell Copeland RN [facility]: [facility] Nurse Name: Alejandro JESSICA, Serena Lubin Position: [facility] Onco RN Member Role: Primary Care Nurse Name: Maura Tsang RN Position: [facility] RN Member Role: Primary Care Nurse Care Team Related Persons Name: KAYCE PARK Address: [address] [place] [address] Name: ARAVIND SANTIAGO Address: [address] [place] [address]
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
[2023-03-28 07:06] LABS: Glucose, Whole Blood 220 mg/dL (60-115)
--- NOTE | 2023-03-28 07:26 | HO.ANESPROP2 ---
[facility]LY [facility], [facility] Active Problems Active Problems: All Active Problems (Updated 02/05/23 @ 10:26 by Lavonne Curry RN) Injury of knee, left (Acute) Painful diabetic neuropathy (Acute) Thoracic myelopathy (Acute) CKD (chronic kidney disease) requiring chronic dialysis (Acute) Past Medical History Medical History Asthma CAD (coronary artery disease) Dependence on renal dialysis Diabetes Elevated cholesterol GERD (gastroesophageal reflux disease) Glaucoma HTN (hypertension) Kidney failure Kidney transplant rejection Neuropathy On beta candelario at home Uses walker Family History Family history of problems with anesthesia: No Surgical History Surgical History History of cardiac cath History of esophagogastroduodenoscopy (EGD) History of kidney transplant Hx of colonoscopy S/P arteriovenous (AV) graft placement S/P trigger finger release History of Problems with Anesthesia: No Social History Social History Are you a primary before and after school daycare worker to a significant other at home: No Do you presently have visiting nurse or other home services: Yes Alcohol intake: never Patient Tobacco Use Status: Never used Tobacco Advance Directives Date on File: 01/31/21 Current occupational status: unemployed Current occupation: Right Handed Meds Allergies Allergy/AdvReac Type Severity Reaction Status Date / Time cefazolin [From ANCEF] Allergy Intermediate ? Verified 02/21/23 12:08 ALLERGY-COUGH,SOB fentanyl [FENTANYL] Allergy Intermediate ? ALLERGY, Verified 02/21/23 12:08 COUGH,SOB pregabalin [From Lyrica] Allergy Intermediate Nausea Verified 03/25/23 09:36 Active Medications: Current Medications Clindamycin Phosphate (Cleocin) 900 mg in 50 mls @ 50 mls/hr IV PREOP ONE Stop: 03/28/23 07:54 Sodium Chloride (Ns) 1,000 mls @ 50 mls/hr IVCONT .[facility] Home Medications Medication Instructions Recorded Confirmed Last Taken Type brimonidine 0.2 % eye drops 1 drp ophthalmic (eye) BID 01/30/21 03/25/23 01/30/21 History ergocalciferol (vitamin D2) 1,250 1 cap PO DE OLIVEIRA 01/30/21 03/25/23 01/28/21 History mcg (50,000 unit) capsule insulin lispro 100 unit/mL 500 unit subcut Q3D insulin pump 01/30/21 03/25/23 Unknown History subcutaneous solution (Humalog U-100 Insulin) latanoprost 0.005 % eye drops 1 drp ophthalmic (eye) BEDTIME 01/30/21 03/25/23 01/29/21 History mycophenolate sodium 180 mg 3 tab PO BID 01/30/21 03/25/23 01/30/21 History tablet,delayed release furosemide 80 mg tablet 1 tab PO DAILY 02/20/21 03/25/23 Unknown History albuterol sulfate 90 mcg/actuation 2 puff inhalation Q4H PRN Wheezing 07/22/22 03/25/23 Unknown History aerosol inhaler atorvastatin 40 mg tablet 40 mg PO DAILY 07/22/22 03/25/23 Unknown History clopidogrel 75 mg tablet 75 mg PO DAILY 07/22/22 03/25/23 Unknown History epoetin konrad 40,000 unit/mL 20,000 unit subcut QWEEK 07/22/22 03/25/23 Unknown History injection solution fluticasone 250 mcg-salmeterol 50 1 ea inhalation BID 07/22/22 03/25/23 Unknown History mcg/dose blistr powdr for inhalation (Advair Diskus) folic acid 1 mg tablet 1 mg PO DAILY 07/22/22 03/25/23 Unknown History gabapentin 100 mg capsule 100 mg PO TID 07/22/22 03/25/23 Unknown History magnesium oxide 400 mg (241.3 mg 400 mg PO BID 07/22/22 03/25/23 Unknown History magnesium) tablet metoprolol succinate 100 mg 100 mg PO DAILY 07/22/22 03/25/23 Unknown History tablet,extended release 24 hr sevelamer HCl 800 mg tablet 800 mg PO TID 07/22/22 03/25/23 Unknown History tamsulosin 0.4 mg capsule 0.4 mg PO DAILY 07/22/22 03/25/23 Unknown History omeprazole 20 mg capsule,delayed 20 mg PO DAILY 02/07/23 03/25/23 Unknown History release Exam Exam Date and Time: March 28, 2023 0726 Height,Weight and Vital Signs: Height 5 ft 8 in Weight 90.718 kg Pertinent Lab Results Pertinent Lab Results: Laboratory Tests 03/28/23 07:02 POC Glucose 220 H Airway Mallampati Class: III TM Dist: >3cm Neck ROM: Full Loose/Missing/Broken Teeth: No Heart: RRR Lungs: CTA Assessment and Plan Assessment Anesthesia Assessment: Anesthesia Plan Discussed and Chart Reviewed Final Anesthetic Review Family History of Problems with Anesthesia: No History of Problems with Anesthesia: No NPO: Yes ASA Class: III Final Preanesthetic Review: Meds/Allgs Chart Reviewed, Consent Obtained/Reviewed and Anes Risks/Benef Reviewed Patient Risk: Intermediate Procedure Risk: Low Anesthetic Plan Anesthetic Plan: MAC: Disposition: Standard PACU
[2023-03-28 07:27] VITALS: BP 135/76; PULSE 66; RESP 18; TEMP 36.1; O2SAT 98; BMI 30.4
[2023-03-28] MEDS: 0.9 % Sodium Chloride 1,000 ML 50 ML IVCONT (07:37)
[2023-03-28 07:45] LABS: Anion Gap 21 (12-20); Blood Urea Nitrogen 37 mg/dL (9-16); Calcium 9.8 mg/dL (8.4-10.2); Carbon Dioxide 24 mmol/L (22-29); Chloride 97 mmol/L (96-108); Creatinine Clr Calc Pharmacy 12.7; Estimated Glomerular Filt Rate 8; Glucose Fasting 222 mg/dL (60-99); Potassium 4.5 mmol/L (3.3-5.1); Sodium 137 mmol/L (135-145)
[2023-03-28 08:46] LABS: MRSA Nasal PCR NEGATIVE (Negative); SA Nasal PCR NEGATIVE (Negative)
[2023-03-28 09:27] VITALS: BP 103/36; PULSE 68; RESP 18; TEMP 36.3; O2SAT 96
--- NOTE | 2023-03-28 09:27 | MHC.SHP ---
Pre-Procedural Eval Section A Date of Service: 03/28/23 The patient is an INPATIENT: No Changes since office visit: Yes Patient answered all questions The History & Physical has been completed within 30 days and I have reviewed it.: Yes Section B Chief Complaint: Type 2 diabetes mellitus with diabetic neuropathy, Relevant Family History (Specify if Yes): No Relevant Social History: None Present Medications: see Short Stay Collaborative assessment Medical History: No relevant PMH History of Previous Operations: No relevant previous surgery Allergies: Allergies Allergy/AdvReac Type Severity Reaction Status Date / Time cefazolin [From ANCEF] Allergy Intermediate ? Verified 02/21/23 12:08 ALLERGY-COUGH,SOB fentanyl [FENTANYL] Allergy Intermediate ? ALLERGY, Verified 02/21/23 12:08 COUGH,SOB pregabalin [From Lyrica] Allergy Intermediate Nausea Verified 03/25/23 09:36 Review of Systems Sugical H&P ROS: Negative: Constitution, Cardiovascular and Respiratory Exam Surgical H&P Exam: Normal: HEENT, Normal: Heart and Normal: Lungs Plan Diagnosis/Plan: Unchanged I have reviewed the history and physical and performed a pertinent physical examination on my patient. No changes have occurred unless specified. Time Spent With Patient Time: Total time managing care of this patient today ____ minutes.
--- NOTE | 2023-03-28 09:27 | PM.OP ---
Brief Operative Note Date of Service: 03/28/23 Pre-op diagnosis: Painful diabetic neuropathy Post-op diagnosis: same Procedure: Lumbar spinal cord stimulation trial Implants: Nevro HFX trial leads Surgeon: Lloyd Blackman MD Anesthesia: MAC Was an Transit Planning Director used for this Procedure?: No Estimated blood loss (mL): 5 Pathology: none sent Condition: stable Disposition: PACU
--- NOTE | 2023-03-28 09:29 | W.PM.OPN ---
Operative Note Operative Note Date of Service: 03/28/23 Narrative: Percutaneous Spinal Cord Stimulator Trial, Lumbar After obtaining written consent, pre-procedure blood pressure and heart rate were recorded and are in the nursing record for review. A peripheral IV was started. Antibiotics, clindamycin 900 mg, were given intraoperatively. The patient was placed in a prone position. The patient was sedated by the anesthesiologist. The thoracolumbar area was widely prepped with ChloraPrep, allowed to dry and draped in sterile fashion. Fluoroscopy was used to identify the T12-L1 interlaminar spaces and appropriate needle insertion sites. The skin and subcutaneous tissue were anesthetized with 0.5% lidocaine with epinephrine mixed with 0.25% ropivacaine. Two separate 14 gauge Cuode epidural needles were then advanced from the insertion points in a paramedian approach to the epidural space opening at T12/L1 interspace, where loss of resistance was found using air. No paresthesias were elicited with needle placement. No CSF or heme was present upon needle placement. A guide wire was then used to confirm placement into the epidural space at each level under live fluoroscopy. The 1x8 stimulator lead wire was then threaded to the top of T8 in the right parasagittal position. The second stimulator lead was placed such that the bottom electrode was at the top of of T12 in the left parasagittal position under live fluoroscopy. The leads advanced midline and dorsal.?The Tuohy needles were then completely removed under live fluoroscopy. The stimulator wires were then secured with 2-0 Tycron sutures followed by steristrips, gauze and tegaderm for skin dressing. The patient tolerated the procedure well and no complications were encountered. Following the procedure the patient's vital signs were stable. The patient was discharged home in good condition after being given discharge instructions. Time Out: Immediately prior to the procedure, the following was verbally confirmed that there is a signed consent form and that the correct patient, planned procedure, site and side are consistent with documentation and that necessary equipment and/or blood products are available prior to the start of the case. Complications: none EBL: 5 cc
[2023-03-28 09:37] VITALS: BP 120/42; PULSE 69; RESP 18; O2SAT 98
[2023-03-28 09:52] VITALS: BP 134/53; PULSE 67; RESP 18; TEMP 36.4; O2SAT 98
== END 2023-03-28 10:30 | disposition home or self-care (01) ==
PROVIDERS: Anesthesiology; Registered Nurse Emergency; PCP Internal Medicine; Visit Provider Internal Medicine
PROC: (CPT 63650; principal; 2023-03-28 08:00)
DX: E11.40 Type 2 diabetes mellitus with diabetic neuropathy, unspecified (principal); E11.22 Type 2 diabetes mellitus with diabetic chronic kidney disease; N18.6 End stage renal disease; Z99.2 Dependence on renal dialysis; Z94.0 Kidney transplant status; I12.0 Hypertensive chronic kidney disease with stage 5 chronic kidney disease or end stage renal disease; M79.605 Pain in left leg; M79.604 Pain in right leg; Z79.4 Long term (current) use of insulin; Z79.1 Long term (current) use of non-steroidal anti-inflammatories (NSAID); Z79.51 Long term (current) use of inhaled steroids; Z79.02 Long term (current) use of antithrombotics/antiplatelets; Z79.82 Long term (current) use of aspirin; Z79.899 Other long term (current) drug therapy; Z88.8 Allergy status to other drugs, medicaments and biological substances
CPT/HCPCS: 63650 ×2; 36415; 80048; 82947; 87640; 87641; C1897; J2250

== ENCOUNTER → 2023-03-28 06:37 | Outpatient (BNV) | payer OTHER, MEDICAID, SELFPAY | PROVIDERS: PCP Internal Medicine; Visit Provider Internal Medicine | DX: E11.40 Type 2 diabetes mellitus with diabetic neuropathy, unspecified (principal) | CPT/HCPCS: 63650 ==

== ENCOUNTER 2023-04-01 15:12 | Outpatient (AMB) | payer OTHER, MEDICAID, SELFPAY ==
--- NOTE | 2023-04-01 15:16 | A.OFFVIS_ITS ---
Intake Vital Signs 04/01/23 15:17 Height 5 ft 8 in Weight 199 lb BMI 30.3 BP 140/78 H Blood Pressure Location Rt brachial Position Sitting Respiration 14 Pulse 80 Pulse Source Pulse Oximeter Intake Visit Reasons: s/p Nevro SCS Trial 03/28/23 Allergies cefazolin [From ANCEF] Allergy (Intermediate, Verified 02/21/23 12:08) ? ALLERGY-COUGH,SOB fentanyl [FENTANYL] Allergy (Intermediate, Verified 02/21/23 12:08) ? ALLERGY, COUGH,SOB pregabalin [From Lyrica] Allergy (Intermediate, Verified 03/25/23 09:36) Nausea HPI HPI Comments History of Present Illness Details Patient presents today for follow up status post Nevro SCS trial on 03/28/23 for diabetic neuropathy. Patient reports 80-90% pain relief for 4 days with significant improvement in his daily activities, functioning, sleep and quality of life. He does report mild surgical site pain and has been taking Tylenol for this. Patient is interested in proceeding with a permanent implant. He currently participates in dialysis and undergoes dialysis on [id number]. We will make arrangements for an SCS implant as soon as possible to optimize his participation in dialysis. PRIOR Dr. Blackman: Patient is a 52-year-old male presenting for a follow-up regarding diabetic neuropathy. Patient?s insurance does not cover topical capsaicin, so he is here to discuss next steps.? He has been unable to sleep normally due to increasing discomfort and pain in his lower extremities.? This has also made it hard for him to tolerate his dialysis sessions and he has had to increase the number of dialysis sessions from 3 to 4 since he cannot sit still long enough to accomplish the full dialysis in 3 sessions.? He is amenable to proceeding with trial of spinal cord stimulation for PDN. ? ? [facility] Medical History Asthma CAD (coronary artery disease) Dependence on renal dialysis Diabetes Elevated cholesterol GERD (gastroesophageal reflux disease) Glaucoma HTN (hypertension) Kidney failure Kidney transplant rejection Neuropathy On beta candelario at home Uses walker Surgical History History of cardiac cath History of esophagogastroduodenoscopy (EGD) History of kidney transplant Hx of colonoscopy S/P arteriovenous (AV) graft placement S/P trigger finger release Social History Are you a primary caretaker grounds to a significant other at home: No Do you presently have visiting nurse or other home services: Yes Alcohol intake: never Patient Tobacco Use Status: Never used Tobacco Advance Directives Date on File: 01/31/21 Current occupational status: unemployed Current occupation: Right Handed Review of Systems Const All systems reviewed & are unremarkable except as noted in HPI and below Physical Exam Vital Signs: Last Vital Signs Pulse 80 04/01/23 15:17 Resp 14 04/01/23 15:17 BP 140/78 H 04/01/23 15:17 BMI result Body Mass Index 30.3 General: Appears afebrile. Alert and oriented. Mood and affect appropriate. Follows and participates in conversation appropriately. Respiratory effort is unlabored. Able to transition from sit to stand unassisted. Ambulates with bilaterally normal heel strike and toe off. Back/Spine/Pelvis Other: The tape was removed. The stimulating battery pad was disconnected from the epidural leads. These sites of the insertion were cleansed with ChloraPrep and sutures were severed. The epidural leads were removed and the tips were intact. No erythema, swelling, tenderness or pathological discharge was noted. Bacitracin ointment, dry sterile and Tegaderm dressing were applied. Results Reviewed Results Reviewed: No imaging is available for review. Assessment & Plan Assessment & Plan (1) Painful diabetic neuropathy: Code(s): E11.40 - Type 2 diabetes mellitus with diabetic neuropathy, unspecified (2) CKD (chronic kidney disease) requiring chronic dialysis: Code(s): N18.6 - End stage renal disease; Z99.2 - Dependence on renal dialysis Plan 1. Schedule for Nevro HFX SCS Implant given good relief seen from trial. 2. Patient was informed that we will make arrangements for an SCS implant as soon as possible to optimize his participation in dialysis. He currently underg oes dialysis on Saturdays. He can be safely scheduled for anesthesia on a Friday following dialysis on Friday per Dr. Blackman. Expectations, risks and benefits were reviewed. All questions and concerns have been answered and patient agreed with the plan. Follow up after SCS implant and sooner if needed. Cardiac clearance regarding holding Plavix: Coding Level of Care Code Est Pt Level 4 (51757) Diagnoses Painful diabetic neuropathy E11.40 CKD (chronic kidney disease) requiring chronic dialysis N18.6; Z99.2
[2023-04-01 15:17] VITALS: BP 140/78; PULSE 80; RESP 14; BMI 30.3
== END 2023-04-01 15:31 | disposition home or self-care (01) ==
PROVIDERS: PCP Internal Medicine; Visit Provider Nurse Practitioner Family
DX: E11.40 Type 2 diabetes mellitus with diabetic neuropathy, unspecified (principal); N18.6 End stage renal disease; Z99.2 Dependence on renal dialysis
CPT/HCPCS: 99214

== ENCOUNTER → 2023-04-01 15:12 | Outpatient (BNVA) | payer OTHER, MEDICAID, SELFPAY | PROVIDERS: PCP Internal Medicine; Visit Provider Nurse Practitioner Family ==

== ENCOUNTER 2023-04-29 15:24 | Outpatient (REF) | payer OTHER, MEDICAID, SELFPAY ==
--- NOTE | ~2023-04-29 | XR_ITS ---
EXAMINATION: XR PELVIS AND LUMBAR SPINE CLINICAL INDICATION: Low back pain. COMPARISON: Lumbar spine 07/05/2017. TECHNIQUE: Lumbar spine 3 views. Pelvis 1 view. FINDINGS: LUMBAR SPINE: There is normal lumbar lordosis. The vertebral heights, alignment and disc heights are normal. No visible acute fracture, dislocation or subluxation seen. There is no lytic process. Sacroiliac joints are symmetrical and normal. PELVIS: There is normal symmetry of bilateral sacroiliac joints and hip joints. No visible acute fracture, dislocation or subluxation seen. No bony erosive changes. The soft tissues are normal. XR/XR pelvis 1-2V IMPRESSION: 1. Unremarkable lumbar spine exam. 2. Unremarkable anterior to posterior pelvis exam. No visible acute fracture, dislocation or subluxation seen.
--- NOTE | ~2023-04-29 | XR_ITS ---
EXAMINATION: XR PELVIS AND LUMBAR SPINE CLINICAL INDICATION: Low back pain. COMPARISON: Lumbar spine 07/05/2017. TECHNIQUE: Lumbar spine 3 views. Pelvis 1 view. FINDINGS: LUMBAR SPINE: There is normal lumbar lordosis. The vertebral heights, alignment and disc heights are normal. No visible acute fracture, dislocation or subluxation seen. There is no lytic process. Sacroiliac joints are symmetrical and normal. PELVIS: There is normal symmetry of bilateral sacroiliac joints and hip joints. No visible acute fracture, dislocation or subluxation seen. No bony erosive changes. The soft tissues are normal. XR/XR lumbar spine 2-3V IMPRESSION: 1. Unremarkable lumbar spine exam. 2. Unremarkable anterior to posterior pelvis exam. No visible acute fracture, dislocation or subluxation seen.
== END 2023-04-29 15:25 | disposition home or self-care (01) ==
LOC: HO.XRAY 15:24
PROVIDERS: PCP Internal Medicine; Visit Provider Internal Medicine
DX: M54.50 Low back pain, unspecified (principal)
CPT/HCPCS: 72100; 72170

== ENCOUNTER 2023-05-08 12:29 | Emergency (ER) | payer OTHER, SELFPAY ==
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
[2023-05-08 12:32] VITALS: BP 128/70; PULSE 90; O2SAT 100
[2023-05-08 12:34] VITALS: BP 103/63; PULSE 93; RESP 17; TEMP 36.6; O2SAT 98; BMI 30.3
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
--- OUTSIDE RECORDS SUMMARY | 2023-05-08 15:26 | XMS_ITS | Continuity of Care Document ---
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 Name Role Phone Krishna Tapia MD Primary Care Physician [place] [facility] [place]10[place]23 - 04/09/23 [facility] [address] [place] [id number] Allergies, Adverse Reactions, Alerts Substance Reaction Severity [...] 0 Refills, Maintenance, 06/22/22 6:51:00 EDT, Capsule, [facility], Partial fill upon patient request if [...] 08/29/22 8:44:00 EST, Route to Pharmacy Electronically, [facility], Partial fill upon patient request if [...] EVERY DAY, # 180 tablet, 1 Refills, [id number], 173,cm, 01/24/22 16:16:00 EDT, Height, 91.1, kg, [...] MRI Safety Implantable Status Assigning Authority Unknown [id number] Unknown Unknown 09/26/25 Unknown Unknown Active Unknown [...] Care Nurse Name: Janie Kunz RN Position: [facility] RN Member Role: Primary Care Nurse Name: Krishna Tapia MD Position: [facility] Outreach Member Role: PCP Address: Address: [address] [place] [address] [place] [address]- Name: Miguelangel Cancino MD Position: [facility] Renal MD Member Role: Lifetime Consulting Physician Address: Address: [address] [place] [address], [address] [facility] [place] [address]- [place] Name: Lavonne Mckenzie RN Position: [facility] RN Member Role: Primary Care Nurse Name: Filomena Austin RN Position: [facility] RN Member Role: Primary Care Nurse Name: Faby Guido RN Position: [facility] RN Member Role: Primary Care Nurse Name: Maddy Skelton Position: S RN Member Role: Primary Care Nurse Name: Elise Yao LPN Position: [facility] RN Member Role: Primary Care Nurse Name: Barak Shaw DO Position: [facility] Renal MD Member Role: Lifetime Consulting Physician Address: Address: [address] [place] [address] [address] [facility] [place] [address]- [place] Name: Tayla Fine Position: [facility] Outreach Member Role: Lifetime Consulting Physician Name: Niki Montes RN Position: [facility] RN Member Role: Primary Care Nurse Name: Stella Calhoun RN Position: S RN Member Role: Primary Care Nurse Name: Wes Lezama Position: [facility] Associate Professional Member Role: Lifetime Consulting Provider Address: Address: [address] [place] [address]- Name: Kinjal Macias RN Position: [facility] RN Member Role: Primary Care Nurse Name: Estephania Pizano RN Position: [facility] ED RN W/OE and Tasks Member Role: Primary Care Nurse Name: Alexis Brooke MD Position: [facility] Renal MD Member Role: Lifetime Consulting Physician Address: Address: [address] [place] [address] [address] [facility] [place] [address]- Name: Chantelle Villareal RN [facility] Member Role: Primary Care Nurse Address: Address: [address] [place] [address]- Name: Marcelo Joy MD Position: [facility] Renal MD Member Role: Lifetime Consulting Physician Address: Address: [address] [place] [address] [facility] [place] [address]- Name: Nell Copeland RN [facility] [...] Care Nurse Care Team Related Persons Name: XAVIER KAYCE Address: home [address] [place] [address] Name: SANTIAGO NAZARIO Address: home [address] [place] [address]
--- OUTSIDE RECORDS SUMMARY | 2023-05-08 15:29 | XMS_ITS | Continuity of Care Document ---
Author Name Unknown Organization [facility] Address [address] [place] [address]- Care Team Providers Care Barbering Instructor Name Role Phone Krishna Tapia MD Primary Care Physician Encounter [place] Date(s): 03/04/23 - 04/03/23 [facility] [address] [place] [address]- Attending Physician: Kyler Ny Allergies, Adverse Reactions, Alerts Substance Reaction Severity [...] 0 Refills, Maintenance, 06/22/22 6:51:00 EDT, Capsule, [facility], Partial fill upon patient request [...] 08/29/22 8:44:00 EST, Route to Pharmacy Electronically, [facility], Partial fill upon patient request [...] EVERY DAY, # 180 tablet, 1 Refills, [id number], 173,cm, 01/24/22 16:16:00 EDT, Height, 91.1, kg, [...] recent to oldest [Reference Range]: 1 2 Height 170.00 cm (08/09/10 11:01 AM) 170.00 cm (10/06/09 10:13 AM) Weight 86.000 kg (08/09/10 11:01 AM) 84.500 kg (10/06/09 10:13 AM) Body Mass Index [18.50-24.99] 29.76 *H* (08/09/10 11:01 AM) 29.24 *H* (10/06/09 10:13 AM) Social History Social History Type Response Smoking Status Never smoker entered on: 01/06/17 Sex Male Implantable Device List Procedure Provider Procedure Date Device Type Site Creation Arteriovenous Graft Upper Extre Josef Adams MD 03/12/21 Unknown Arm Left Device Identifier Serial Number Lot or Batch Number Manufacturing Date Expiration Date Distinct Identification Code MRI Safety Implantable Status Assigning Authority Unknown [id number] Unknown Unknown 09/26/25 Unknown Unknown Active Unknown Patient Care team information Care Team Personnel Name: Wild Santos RN Position: [facility] RN Member Role: Primary Care Nurse [...] Care Nurse Name: Krishna Tapia MD Position: [facility] Outreach Member Role: PCP Address: Address: [address] [place] [address] Krishna Tapia [place], [place] [address] Name: Miguelangel Cancino MD Position: [facility] Renal MD Member Role: Lifetime Consulting Physician Address: Address: [address] [place] [address], [address] [facility] [place] [address]- Name: Lavonne Mckenzie RN Position: S RN [...] Care Nurse Name: Barak Shaw DO Position: [facility] Renal MD Member Role: Lifetime Consulting Physician Address: Address: [address] [facility] [place] [place] [address]- Name: Rody Tayla Position: [facility] Outreach Member Role: Lifetime Consulting Physician Name: Niki Montes RN Position: S RN Member Role: Primary Care Nurse Name: Stella Calhoun RN Position: S RN Member Role: Primary Care Nurse Name: Wes Lezama Position: [facility] Associate Professional Member Role: Lifetime Consulting Provider Address: Address: [address] [place] [address]- Name: Kinjal Macias RN Position: [facility] RN Member Role: Primary Care Nurse Name: Estephania Pizano RN Position: [facility] ED RN W/OE and Tasks Member Role: Primary Care Nurse Name: Alexis Brokoe MD Position: [facility] Renal MD Member Role: Lifetime Consulting Physician Address: Address: [address] [place] [address] [address] [facility] [place] [address]- Name: Chantelle Villareal RN Position: [facility] RN Member Role: Primary Care Nurse Name: Brisa Michaels RN Position: [facility] RN Member Role: Primary Care Nurse Name: London Chau RN Position: [facility] RN Member Role: Primary Care Nurse Name: Ana Schafer RN Position: [facility] RN Member Role: Primary Care Nurse Name: Liz Aguilera RN Position: [facility] Outreach Member Role: Lifetime Consulting Physician Name: Sudhir Chan Position: [facility] Outreach Member Role: Lifetime Consulting Physician Name: Monique Guzmán RN Position: [facility] RN Member Role: Primary Care Nurse Name: Roselia Crain RN Position: [facility] RN Member Role: Primary Care Nurse Name: Jorge Crews RN Position: [facility] RN Member Role: Primary Care Nurse Address: Address: [address] [place] [address]- [place] Name: Marcelo Joy MD Position: [facility] Renal MD Member Role: Lifetime Consulting Physician Address: Address: [address] [place] [address] [facility] [place] [address]- Name: Nell Copeland RN Position: [facility] RN Member Role: Primary Care Nurse Name: Star Hagen RN Position: [facility] RN Member Role: Primary Care Nurse Name: Odalis Roy RN Position: [facility] SN RN Member Role: Primary Care Nurse Name: Merline Carlson RN Position: [facility] RN Member Role: Primary Care Nurse Name: Nupur Black RN Position: [facility] RN Member Role: Primary Care Nurse Name: Serena Allen RN Position: [facility] Onco RN Member Role: Primary Care Nurse Name: Maura Tsang RN Position: [facility] RN Member Role: Primary Care Nurse Care Team Related Persons Name: KAYCE PARK Address: [address] [place] [address] Name: SANTIAGO NAZARIO Address: [address] [place] [address]
--- OUTSIDE RECORDS SUMMARY | 2023-05-08 15:30 | XMS_ITS | Continuity of Care Document ---
Author Name Unknown Organization [facility] Address [address] [place] [address]- Care Team Providers Care Life Enrichment Director Name Role Phone Krishna Tapia MD Primary Care Physician Encounter [facility] Date(s): 03/14/23 - 04/13/23 [facility] [address] [place] [address]- Allergies, Adverse Reactions, Alerts Substance Reaction Severity [...] 0 Refills, Maintenance, 06/22/22 6:51:00 EDT, Capsule, [facility], Partial fill upon [...] 08/29/22 8:44:00 EST, Route to Pharmacy Electronically, [facility], Partial fill upon [...] DAY, # 180 tablet, 1 Refills, [id number], 173,cm, 01/24/22 16:16:00 EDT, Height, 91.1, kg, [...] MRI Safety Implantable Status Assigning Authority Unknown [id number] Unknown Unknown 09/26/25 Unknown Unknown Active Unknown [...] Care Nurse Name: Janie Kunz RN Position: [facility] RN Member Role: Primary Care Nurse Name: Krishna Tapia MD Position: [facility] Outreach Member Role: PCP Address: Address: [address] [place] [address] [place] [address]- Name: Miguelangel Cancino MD Position: [facility] Renal MD Member Role: Lifetime Consulting Physician Address: Address: [address] [place] [address], [address] [facility] [place] [address]- [place] Name: Lavonne Mckenzie RN Position: [facility] RN Member Role: Primary Care Nurse Name: Filomena Austin RN Position: [facility] RN Member Role: Primary Care Nurse Name: Faby Guido RN Position: [facility] RN Member Role: Primary Care Nurse Name: Maddy Skelton Position: S RN Member Role: Primary Care Nurse Name: Elise Yao LPN Position: [facility] RN Member Role: Primary Care Nurse Name: Barak Shaw DO Position: [facility] Renal MD Member Role: Lifetime Consulting Physician Address: Address: [address] [place] [address] [address] [facility] [place] [address]- [place] Name: Tayla Fine Position: [facility] Outreach Member Role: Lifetime Consulting Physician Name: Niki Montes RN Position: [facility] RN Member Role: Primary Care Nurse Name: Stella Calhoun RN Position: S RN Member Role: Primary Care Nurse Name: Wes Lezama Position: [facility] Associate Professional Member Role: Lifetime Consulting Provider Address: Address: [address] [place] [address] Name: Kinjal Macias RN Position: [facility] RN Member Role: Primary Care Nurse Name: Estephania Pizano RN Position: [facility] ED RN W/OE and Tasks Member Role: Primary Care Nurse Name: Alexis Brooke MD Position: [facility] Renal MD Member Role: Lifetime Consulting Physician Address: Address: [address] [place] [address] [address] [facility] [address] Name: Chantelle Villareal RN Position: [facility] RN Member Role: Primary Care Nurse Name: Brisa Michaels RN Position: [facility] RN Member Role: Primary Care Nurse Name: London Chau RN Position: [facility] RN Member Role: Primary Care Nurse Name: Ana Schafer RN Position: [facility] RN Member Role: Primary Care Nurse Name: Liz Aguilera RN Position: [facility] Outreach Member Role: Lifetime Consulting Physician Name: Sudhir Chan Position: [facility] Outreach Member Role: Lifetime Consulting Physician Name: Monique Guzmán RN Position: [facility] RN Member Role: Primary Care Nurse Name: Roselia Crain RN Position: [facility] RN Member Role: Primary Care Nurse Name: Jorge Crews RN Position: [facility] RN Member Role: Primary Care Nurse Address: Address: [address] [place] [address]- Name: Macrelo Joy MD Position: [facility] Renal MD Member Role: Lifetime Consulting Physician Address: Address: [address] [place] [address] [facility] [address] Name: Nell Copeland RN Position: [facility] RN Member Role: Primary Care Nurse Name: Star Hagen RN Position: [facility] RN Member Role: Primary Care Nurse Name: Odalis Roy RN Position: [facility] SN RN Member Role: Primary Care Nurse Name: Merline Carlson RN Position: [facility] RN Member Role: Primary Care Nurse Name: Nupur Black RN Position: [facility] RN Member Role: Primary Care Nurse Name: Serena Allen RN Position: [facility] Onco RN Member Role: Primary Care Nurse Name: Maura Tsang RN Position: [facility] RN Member Role: Primary Care Nurse Care Team Related Persons Name: XAVIER KAYCE Address: [address] [place] [address] Name: SANTIAGO NAZARIO Address: [address] [place] [address]
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
[2023-05-08] MEDS: Cyclobenzaprine HCl 10 MG TABLET PO (16:00)
[2023-05-08] MEDS: Lidocaine 4 % Patch ADH..PATCH 1 PATCH TRANSDERMA (16:01)
[2023-05-08] MEDS: Acetaminophen 325 MG TABLET 650 MG PO (17:05)
[2023-05-08] MEDS: Gabapentin 100 MG CAPSULE PO (17:05)
== END 2023-05-08 17:25 | disposition home or self-care (01) ==
PROVIDERS: Emergency Provider Student in an Organized Health Care Education/Training Program; PCP Internal Medicine
DX: S16.1XXA Strain of muscle, fascia and tendon at neck level, initial encounter (principal); V43.62XA Car passenger injured in collision with other type car in traffic accident, initial encounter; M54.50 Low back pain, unspecified; E11.22 Type 2 diabetes mellitus with diabetic chronic kidney disease; I12.0 Hypertensive chronic kidney disease with stage 5 chronic kidney disease or end stage renal disease; N18.6 End stage renal disease; Z99.2 Dependence on renal dialysis; Z79.4 Long term (current) use of insulin; Z79.899 Other long term (current) drug therapy; Y93.89 Activity, other specified; Y92.410 Unspecified street and highway as the place of occurrence of the external cause; Y99.9 Unspecified external cause status
CPT/HCPCS: 70450; 72125; 99283; 99284

== ENCOUNTER 2023-05-28 11:05 | Day surgery (SDC) | payer OTHER, MEDICAID, SELFPAY ==
[2023-05-26 09:06] VITALS: BMI 30.3
--- NOTE | 2023-05-27 09:36 | P.CONAN_ITS ---
Documented by User: Kinjal Samuel NP 05/27/23 09:41 HPI - Anesthesia Eval Consult details Narrative: 53yo M for Spinal Cord Stimulation Implant s/p trial 03/2023 with MAC ok'd to hold plavix Cardiac optimized. Last office eval 10/2022. Pt was euvolemic and hemodynamically stable ESRD on HD TuTat [facility] Active Problems Active Problems: All Active Problems (Updated 05/09/23 @ 00:02 by Elroy Camacho) Injury of knee, left (Acute) Painful diabetic neuropathy (Acute) Thoracic myelopathy (Acute) CKD (chronic kidney disease) requiring chronic dialysis (Acute) Past Medical History Medical History (Updated 05/28/23 @ 11:46 by Petty Hines RN) History of renal dialysis Uses walker CAD (coronary artery disease) On beta candelario at home GERD (gastroesophageal reflux disease) Elevated cholesterol Asthma Dependence on renal dialysis Neuropathy Diabetes HTN (hypertension) Glaucoma Kidney transplant rejection Kidney failure Family History Family history of problems with anesthesia: No Surgical History Surgical History S/P arteriovenous (AV) graft placement History of cardiac cath S/P trigger finger release History of kidney transplant Hx of colonoscopy History of esophagogastroduodenoscopy (EGD) History of Problems with Anesthesia: No Social History Social History Are you a primary women's health care nurse practitioner to a significant other at home: No Do you presently have visiting nurse or other home services: Yes Alcohol intake: never Patient Tobacco Use Status: Never used Tobacco Use of substances other than those prescribed or required for medical reasons: No Are you DNR?: No Advance Directives: No Advance Directives Information Provided: Yes Advance Directives Date on File: 02/20/21 Current occupational status: unemployed Current occupation: Right [employer] Meds Allergies Allergy/AdvReac Type Severity Reaction Status Date / Time cefazolin [From ANCEF] Allergy Intermediate ? Verified 02/21/23 12:08 ALLERGY-COUGH,SOB fentanyl [FENTANYL] Allergy Intermediate ? ALLERGY, Verified 02/21/23 12:08 COUGH,SOB pregabalin [From Lyrica] Allergy Intermediate Nausea Verified 03/25/23 09:36 Home Medications Medication Instructions Recorded Confirmed Last Taken Type brimonidine 0.2 % eye drops 1 drp ophthalmic (eye) BID 01/30/21 05/28/23 05/28/23 History ergocalciferol (vitamin D2) 1,250 1 cap PO DE OLIVEIRA 01/30/21 05/28/23 05/28/23 History mcg (50,000 unit) capsule insulin lispro 100 unit/mL 500 unit subcut Q3D insulin pump 01/30/21 05/28/23 Unknown History subcutaneous solution (Humalog U-100 Insulin) latanoprost 0.005 % eye drops 1 drp ophthalmic (eye) BEDTIME 01/30/21 05/28/23 05/28/23 History mycophenolate sodium 180 mg 3 tab PO BID 01/30/21 05/28/23 05/28/23 History tablet,delayed release furosemide 80 mg tablet 1 tab PO DAILY 02/20/21 05/28/23 05/28/23 History albuterol sulfate 90 mcg/actuation 2 puff inhalation Q4H PRN Wheezing 07/22/22 05/28/23 Unknown History aerosol inhaler atorvastatin 40 mg tablet 40 mg PO DAILY 07/22/22 05/28/23 05/28/23 History clopidogrel 75 mg tablet 75 mg PO DAILY 07/22/22 05/28/23 05/21/23 History epoetin konrad 40,000 unit/mL 20,000 unit subcut QWEEK 07/22/22 05/28/23 Unknown History injection solution fluticasone 250 mcg-salmeterol 50 1 ea inhalation BID 07/22/22 03/25/23 Unknown History mcg/dose blistr powdr for inhalation (Advair Diskus) folic acid 1 mg tablet 1 mg PO DAILY 07/22/22 05/28/23 05/28/23 History gabapentin 100 mg capsule 100 mg PO TID 07/22/22 05/28/23 05/28/23 History magnesium oxide 400 mg (241.3 mg 400 mg PO BID 07/22/22 05/28/23 05/28/23 History magnesium) tablet metoprolol succinate 100 mg 100 mg PO DAILY 07/22/22 05/28/23 05/28/23 History tablet,extended release 24 hr sevelamer HCl 800 mg tablet 800 mg PO TID 07/22/22 05/28/23 05/28/23 History tamsulosin 0.4 mg capsule 0.4 mg PO DAILY 07/22/22 05/28/23 05/28/23 History omeprazole 20 mg capsule,delayed 20 mg PO DAILY 02/07/23 05/28/23 05/28/23 History release Exam Exam Date and Time: May 27, 2023 0936 Height,Weight and Vital Signs: Height 5 ft 8 in Weight 90.265 kg Narrative Narrative: EKG 08/2022 NSR @ 63 Prolonged QT ECHO 2021 LV systolic function moderately reduced. LVEF 35-40%. Basal to mid inferolateral and basal inferior and anterolateral villa appear hypokinetic. Grade II , moderate DD with pseudonormal LV filling pattern and increased LA pressure. RV moderately dilated. RV systolic function appears preserved. Apical tethering of both leaflets of the mitral valve. There is mild to moderate mitral regurg. Moderate tricuspid regurg Moderate pulm htn. PASP 50-55mmHg Nuc Stress 08/2022 Myocardial ischemia in LAD and LCx territories which is known (Per cardiac note, revascularization not warranted in absence of symptomatic CAD or increasing HD requirements) Assessment and Plan Assessment Anesthesia Assessment: Chart Reviewed Final Anesthetic Review Family History of Problems with Anesthesia: No History of Problems with Anesthesia: No Documented by User: Ashley Bashir MD 05/28/23 12:22 [facility] Past Medical History Medical History (Updated 05/28/23 @ 11:46 by Petty Hines RN) History of renal dialysis Uses walker CAD (coronary artery disease) On beta candelario at home GERD (gastroesophageal reflux disease) Elevated cholesterol Asthma Dependence on renal dialysis Neuropathy Diabetes HTN (hypertension) Glaucoma Kidney transplant rejection Kidney failure Surgical History Surgical History S/P arteriovenous (AV) graft placement History of cardiac cath S/P trigger finger release History of kidney transplant Hx of colonoscopy History of esophagogastroduodenoscopy (EGD) Social History Social History Are you a primary women's health care nurse practitioner to a significant other at home: No Do you presently have visiting nurse or other home services: Yes Alcohol intake: never Patient Tobacco Use Status: Never used Tobacco Use of substances other than those prescribed or required for medical reasons: No Are you DNR?: No Advance Directives: No Advance Directives Information Provided: Yes Advance Directives Date on File: 02/20/21 Current occupational status: unemployed Current occupation: [employer] Meds Allergies Allergy/AdvReac Type Severity Reaction Status Date / Time cefazolin [From ANCEF] Allergy Intermediate ? Verified 02/21/23 12:08 ALLERGY-COUGH,SOB fentanyl [FENTANYL] Allergy Intermediate ? ALLERGY, Verified 02/21/23 12:08 COUGH,SOB pregabalin [From Lyrica] Allergy Intermediate Nausea Verified 03/25/23 09:36 Home Medications Medication Instructions Recorded Confirmed Last Taken Type brimonidine 0.2 % eye drops 1 drp ophthalmic (eye) BID 01/30/21 05/28/23 05/28/23 History ergocalciferol (vitamin D2) 1,250 1 cap PO DE OLIVEIRA 01/30/21 05/28/23 05/28/23 History mcg (50,000 unit) capsule insulin lispro 100 unit/mL 500 unit subcut Q3D insulin pump 01/30/21 05/28/23 Unknown History subcutaneous solution (Humalog U-100 Insulin) latanoprost 0.005 % eye drops 1 drp ophthalmic (eye) BEDTIME 01/30/21 05/28/23 05/28/23 History mycophenolate sodium 180 mg 3 tab PO BID 01/30/21 05/28/23 05/28/23 History tablet,delayed release furosemide 80 mg tablet 1 tab PO DAILY 02/20/21 05/28/23 05/28/23 History albuterol sulfate 90 mcg/actuation 2 puff inhalation Q4H PRN Wheezing 07/22/22 05/28/23 Unknown History aerosol inhaler atorvastatin 40 mg tablet 40 mg PO DAILY 07/22/22 05/28/23 05/28/23 History clopidogrel 75 mg tablet 75 mg PO DAILY 07/22/22 05/28/23 05/21/23 History epoetin konrad 40,000 unit/mL 20,000 unit subcut QWEEK 07/22/22 05/28/23 Unknown History injection solution fluticasone 250 mcg-salmeterol 50 1 ea inhalation BID 07/22/22 03/25/23 Unknown History mcg/dose blistr powdr for inhalation (Advair Petarus) folic acid 1 mg tablet 1 mg PO DAILY 07/22/22 05/28/23 05/28/23 History gabapentin 100 mg capsule 100 mg PO TID 07/22/22 05/28/23 05/28/23 History magnesium oxide 400 mg (241.3 mg 400 mg PO BID 07/22/22 05/28/23 05/28/23 History magnesium) tablet metoprolol succinate 100 mg 100 mg PO DAILY 07/22/22 05/28/23 05/28/23 History tablet,extended release 24 hr sevelamer HCl 800 mg tablet 800 mg PO TID 07/22/22 05/28/23 05/28/23 History tamsulosin 0.4 mg capsule 0.4 mg PO DAILY 07/22/22 05/28/23 05/28/23 History omeprazole 20 mg capsule,delayed 20 mg PO DAILY 02/07/23 05/28/23 05/28/23 History release Exam Airway Mallampati Class: III TM Dist: >3cm Neck ROM: Full Heart: rrr Lungs: cta Assessment and Plan Assessment Anesthesia Assessment: Anesthesia Plan Discussed Final Anesthetic Review NPO: Yes ASA Class: III Final Preanesthetic Review: No Changes in Pt Med Stat, Meds/Allgs Chart Reviewed and Consent Obtained/Reviewed Patient Risk: Intermediate Procedure Risk: Intermediate Anesthetic Plan Anesthetic Plan: MAC: Disposition: Standard PACU
--- OUTSIDE RECORDS SUMMARY | 2023-05-28 11:10 | XMS_ITS | Continuity of Care Document ---
Author Name Unknown Organization [facility] Address [address] [place] [address]- Care Team Providers Care Academic Support Director Name Role Phone Krishna Tapia MD Primary Care Physician Encounter [facility] Date(s): 04/24/23 - 05/24/23 [facility] [address] [place] [id number] Allergies, Adverse Reactions, Alerts Substance Reaction [...] 6:51:00 EDT, Capsule, [facility], Partial fill upon [...] to Pharmacy Electronically, [facility], Partial fill upon [...] EVERY DAY, # 180 tablet, 1 Refills, [id number], 173,cm, 01/24/22 16:16:00 EDT, Height, 91.1, kg, [...] MRI Safety Implantable Status Assigning Authority Unknown [id number] Unknown Unknown 09/26/25 Unknown Unknown Active Unknown [...] Care Nurse Name: Janie Kunz RN Position: [facility] RN Member Role: Primary Care Nurse Name: Krishna Tapia MD Position: [facility] Outreach Member Role: PCP Address: Address: [address] [place] [address] [place] [address]- Name: Miguelangel Cancino MD Position: [facility] Renal MD Member Role: Lifetime Consulting Physician Address: Address: [address] [place] [address], [address] [facility] [place] [address]- [place] Name: Lavonne Mckenzie RN Position: [facility] RN Member Role: Primary Care Nurse Name: Filomena Austin RN Position: [facility] RN Member Role: Primary Care Nurse Name: Faby Guido RN Position: [facility] RN Member Role: Primary Care Nurse Name: Maddy Skelton Position: S RN Member Role: Primary Care Nurse Name: Elise Yao LPN Position: S RN Member Role: Primary Care Nurse Name: Barak Shaw DO Position: [facility] Renal MD Member Role: Lifetime Consulting Physician Address: Address: [address] [place] [address] [address] [facility] [place] [address]- [place] Name: Tayla Fine Position: [facility] Outreach Member Role: Lifetime Consulting Physician Name: Niki Montes RN Position: [facility] RN Member Role: Primary Care Nurse Name: Stella Calhoun RN Position: S RN Member Role: Primary Care Nurse Name: Wes Lezama Position: [facility] Associate Professional Member Role: Lifetime Consulting Provider Address: Address: [address] [place] [address] Name: Kinjal Macias RN Position: [facility] RN Member Role: Primary Care Nurse Name: Estephania Pizano RN Position: [facility] ED RN W/OE and Tasks Member Role: Primary Care Nurse Name: Zita Barrow RN Position: [facility] SN RN Member Role: Primary Care Nurse Name: Alexis Brooke MD Position: [facility] Renal MD Member Role: Lifetime Consulting Physician Address: Address: [address] [place] [address] [address] [facility] [address] Name: Chantelle Villareal RN Position: [facility] RN Member Role: Primary Care Nurse Name: Brisa Michaels RN Position: [facility] RN Member Role: Primary Care Nurse Name: London Chau RN Position: [facility] RN Member Role: Primary Care Nurse Name: Ana Schafer RN Position: [facility] RN Member Role: Primary Care Nurse Name: iLz Aguilera RN Position: [facility] Outreach Member Role: Lifetime Consulting Physician Name: Sudhir Chan Position: [facility] Outreach Member Role: Lifetime Consulting Physician Name: Monique Guzmán RN Position: [facility] RN Member Role: Primary Care Nurse Name: Roselia Crain RN Position: [facility] RN Member Role: Primary Care Nurse Name: Jorge Crews RN Position: [facility] RN Member Role: Primary Care Nurse Address: Address: [address] [place] [address] Name: Marcelo Joy MD Position: [facility] Renal MD Member Role: Lifetime Consulting Physician Address: Address: [address] [place] [address] [facility] [address] Name: Nell Copeland RN Position: [facility] RN Member Role: Primary Care Nurse Name: Star Hagen RN Position: [facility] RN Member Role: Primary Care Nurse Name: Odalis Roy RN Position: [facility] SN RN Member Role: Primary Care Nurse Name: Merline Carlson RN Position: [facility] RN Member Role: Primary Care Nurse Name: Nupur Black RN Position: [facility] RN Member Role: Primary Care Nurse Name: Serena Allen RN Position: [facility] Onco RN Member Role: Primary Care Nurse Name: Maura Tsang RN Position: S RN Member Role: Primary Care Nurse Care Team Related Persons Name: KAYCE PARK Address: home [address] [place] [address] Name: SANTIAGO NAZARIO Address: [address] [address]
--- OUTSIDE RECORDS SUMMARY | 2023-05-28 11:10 | XMS_ITS | Continuity of Care Document ---
Author Name Unknown Organization [facility] jeanna Address [address] [place] [address] [address] [place] [address]- Care Team Providers Care Special Education Science Teacher Name Role Phone Krishna Tapia MD Primary Care Physician Encounter [facility] Date(s): 05/16/23 - 05/23/[address] [place], [place] [address] Attending Physician: Jeff Ulrich MD Allergies, Adverse Reactions, Alerts Substance Reaction [...] Refills, Maintenance, 06/22/22 6:51:00 EDT, Capsule, [facility], Partial fill upon patient [...] 8:44:00 EST, Route to Pharmacy Electronically, [facility], Partial fill upon patient request [...] Refills, [id number], 173,cm, 01/24/22 16:16:00 EDT, Height, 91.1, kg, [...] 11/07/22 16:29:00 EDT, Route to Pharmacy Electronically, [facility], Partial fill upon patient request if [...] oldest [Reference Range]: 1 Height 173 cm (05/16/23 10:37 AM) Weight 97 kg (05/16/23 10:37 AM) Body Mass Index [18.5-24.99 kg/m2] 32.41 kg/m2 *>HHI* (05/16/23 10:37 AM) Social History Social History Type Response Smoking Status Never smoker entered on: 01/06/17 Sex Male Implantable Device List Procedure Provider Procedure Date Device Type Site Creation Arteriovenous Graft Upper Extre Josef Adams MD 03/12/21 Unknown Arm Left Device Identifier Serial Number Lot or Batch Number Manufacturing Date Expiration Date Distinct Identification Code MRI Safety Implantable Status Assigning Authority Unknown [id number] Unknown Unknown 09/26/25 Unknown Unknown Active Unknown [...] HOSPITAL Outreach Member Role: PCP Address: Address: [address] [place] [address] Krishna Tapia MD [place], [place] [address] Name: Miguelangel Cancino MD Position: [facility] Renal MD Member Role: Lifetime Consulting Physician Address: Address: [address] [place] [address], [address] [facility] [place] [address]- Name: Lavonne Mckenzie RN Position: S RN [...] Member Role: Lifetime Consulting Physician Address: Address: [address] [place], [place] [address] [place] [address]- Name: Tayla Fine Position: S Outreach Member Role: Lifetime Consulting Physician Name: Niki Montes RN Position: [facility] RN Member Role: Primary Care Nurse Name: Stella Calhoun RN Position: [facility] RN Member Role: Primary Care Nurse Name: Wes Lezama Position: [facility] Associate Professional Member Role: Lifetime Consulting Provider Address: Address: [address] [place] [address]- Name: Kinjal Macias RN Position: [facility] RN Member Role: Primary Care Nurse Name: Estephania Pizano RN Position: [facility] ED RN W/OE and Tasks Member Role: Primary Care Nurse Name: Zita Barrow RN Position: [facility] SN RN Member Role: Primary Care Nurse Name: Alexis Brooke MD Position: [facility] Renal MD Member Role: Lifetime Consulting Physician Address: Address: [address] [place] [address] [address] [facility] [place] [address]- Name: Chantelle Villareal RN Position: [place] [...] Member Role: Primary Care Nurse Address: Address: [address] [place] [address]- [place] Name: Marcelo Joy MD Position: [facility] Renal MD Member Role: Lifetime Consulting Physician Address: Address: [address] [place] [address] [facility] [place] [address]- Name: Nell Copeland RN Position: [place] [...] Persons Name: KAYCE PARK Address: [address] [place] [address] Name: NAZARIOSANTIAGO Address: home [address] [place] [address]
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
[2023-05-28 12:22] LABS: Anion Gap 22 (12-20); Carbon Dioxide 25 mmol/L (22-29); Chloride 95 mmol/L (96-108); Sodium 138 mmol/L (135-145)
[2023-05-28 12:24] VITALS: BP 116/74; PULSE 86; RESP 16; TEMP 36.2; O2SAT 97
--- NOTE | 2023-05-28 12:54 | MHC.SHP ---
Pre-Procedural Eval Section A Date of Service: 05/28/23 The patient is an INPATIENT: No Changes since office visit: Yes Patient answered all questions The History & Physical has been completed within 30 days and I have reviewed it.: No Section B Chief Complaint: Type 2 diabetes mellitus with diabetic neuropathy, Relevant Family History (Specify if Yes): No Relevant Social History: None Present Medications: see Short Stay Collaborative assessment Medical History: No relevant PMH History of Previous Operations: No relevant previous surgery Allergies: Allergies Allergy/AdvReac Type Severity Reaction Status Date / Time cefazolin [From ANCEF] Allergy Intermediate ? Verified 02/21/23 12:08 ALLERGY-COUGH,SOB fentanyl [FENTANYL] Allergy Intermediate ? ALLERGY, Verified 02/21/23 12:08 COUGH,SOB pregabalin [From Lyrica] Allergy Intermediate Nausea Verified 03/25/23 09:36 Review of Systems Sugical H&P ROS: Negative: Constitution, Cardiovascular and Respiratory Exam Surgical H&P Exam: Normal: HEENT, Normal: Heart and Normal: Lungs Plan Diagnosis/Plan: Unchanged I have reviewed the history and physical and performed a pertinent physical examination on my patient. No changes have occurred unless specified. Time Spent With Patient Time: Total time managing care of this patient today ____ minutes.
[2023-05-28 13:20] LABS: MRSA Nasal PCR NEGATIVE (Negative); SA Nasal PCR NEGATIVE (Negative)
[2023-05-28] MEDS: 0.9 % Sodium Chloride 1,000 ML 50 ML IVCONT (13:32)
[2023-05-28 15:29] LABS: Glucose, Whole Blood 144 mg/dL (60-115)
[2023-05-28 17:17] VITALS: BP 158/85; PULSE 101; RESP 16; TEMP 36.1; O2SAT 96
--- NOTE | 2023-05-28 17:19 | PM.OP ---
Brief Operative Note Date of Service: 05/28/23 Pre-op diagnosis: Painful diabetic neuropathy Post-op diagnosis: same Procedure: Lumbar spinal cord stimulator implant Implants: Nevro HFX SCS system, Senza IPG Surgeon: Lloyd Blackman MD Anesthesia: MAC Was an In School Suspension Coordinator used for this Procedure?: No Estimated blood loss (mL): 50 Pathology: none sent Condition: stable Disposition: PACU
--- NOTE | 2023-05-28 17:20 | W.PM.OPN ---
Operative Note Operative Note Date of Service: 05/28/23 Narrative: Lumbar SCS Implant After proper identification, the patient was brought to the operating room. After prone positioning, patient was sedated under anesthesia. Care was taken during positioning to protect and pad all pressure points. Clindamycin 900 mg was given as preoperative antibiotic prophylaxis. The back was prepped and draped in the usual sterile fashion using Chloroprep. The fluoroscope unit was sterilely draped and brought into field, the vertebral target at L1/L2 interspace was localized with fluoroscopy. The skin was anesthetized with 0.25% bupivicaine with 1:200,000 epinephrine and 1% lidocaine using a 25-gauge needle. A 6 cm incision was then made in the midline back with a 15 blade between the L2 and L3 spinous processes. Electrocautery was used to dissect down to the prevertebral fascia. Two 14-gauge introducer Tuohy needles were advanced using AP and contralateral oblique fluoroscopy views to the target interspace on either side of the L2 spinous process. Upon loss of resistance, a flexible stylet was advanced and verified to be in the epidural space.?The left electrode was then threaded such that the bottom electrode was at the top of T12 vertebral body. The right electrode was threaded to the top of T8 vertebral body. With the needles covering the leads, we placed 2 sets of Tycron sutures per electrode for the anchor stitches. We then backed out the needle under live fluoroscopy, verifying that the electrodes were in the correct position and we then used the locking anchors to secure the electrodes down to the prevertebral fascia, tying them down with the Tycron sutures. At this point, a pocket for the generator was made in the left iliac fossa. With the skin and subcutaneous tissues anesthetized with 0.25% bupivicaine with 1:200,000 epinephrine and 1% lidocaine, a horizontal 2-inch incision was made using a 15 blade and combination of sharp dissection, blunt dissection and electrocautery was used. A pocket was created about half an inch below the skin. The pocket was then irrigated with normal saline containing vancomycin. Hemostasis was attained with electrocautery. We then tunneled the electrodes from the back into the pocket using the tunneling device. The electrodes were then connected to the generator. A single Tycron suture was thrown across the floor of the pocket and through the medial anchor hold of the generator. After interrogation with impedance check the generator was placed into the subcutaneous pocket and the anchoring suture tied. Care was taken not to get fluid in the generator connector block. The excess lead was closed beneath the generator creating a loop of strain relief as well. The neurostimulator generator was placed parallel to the skin at a depth of approximately 2 cm for successful telemetry and impedence. The pocket was reirrigated and closed with the generator name facing out. Final electronic analysis was performed to ensure proper functioning. Positioning of the leads were rechecked and confirmed with fluoroscopy and images saved. Both incisions were closed with a deep layer of 2-0 Vicryl sutures, the deep dermal layer with 3-0 Vicryl sutures, and jamarcus for the skin. We then secured the incision with bacitracin and tegaderm over both incisions. The patient tolerated the procedure well. The patient was then flipped back into the supine position, woken up and brought to the PACU in stable condition. Complications: None EBL: 50 mL
[2023-05-28 17:32] VITALS: BP 159/90; PULSE 91; RESP 14; TEMP 36.2; O2SAT 100
[2023-05-28 17:47] VITALS: BP 156/89; PULSE 88; RESP 14; TEMP 36.2; O2SAT 97
== END 2023-05-28 17:51 | disposition home or self-care (01) ==
PROVIDERS: Nurse Practitioner; Registered Nurse Emergency; PCP Internal Medicine; Visit Provider Internal Medicine
PROC: (CPT 63685; principal; 2023-05-28 12:30)
DX: E11.40 Type 2 diabetes mellitus with diabetic neuropathy, unspecified (principal); E11.22 Type 2 diabetes mellitus with diabetic chronic kidney disease; I12.0 Hypertensive chronic kidney disease with stage 5 chronic kidney disease or end stage renal disease; N18.6 End stage renal disease; Z99.2 Dependence on renal dialysis; Z79.4 Long term (current) use of insulin; Z96.41 Presence of insulin pump (external) (internal); Z94.0 Kidney transplant status; E78.00 Pure hypercholesterolemia, unspecified; I25.10 Atherosclerotic heart disease of native coronary artery without angina pectoris; J45.909 Unspecified asthma, uncomplicated; H40.9 Unspecified glaucoma; Z88.1 Allergy status to other antibiotic agents; Z88.8 Allergy status to other drugs, medicaments and biological substances; Z79.899 Other long term (current) drug therapy; Z99.89 Dependence on other enabling machines and devices; Z98.890 Other specified postprocedural states
CPT/HCPCS: 63685; 63650 ×2; 36415; 80051; 82947; 87640; 87641; C1713; C1778; C1787; C1816; J0131; J1170; J2250; J3370

== ENCOUNTER → 2023-05-28 11:05 | Outpatient (BNV) | payer OTHER, MEDICAID, SELFPAY | PROVIDERS: PCP Internal Medicine; Visit Provider Internal Medicine | DX: E11.40 Type 2 diabetes mellitus with diabetic neuropathy, unspecified (principal) | CPT/HCPCS: 63650; 63685 ==

== ENCOUNTER 2023-06-03 14:38 | Outpatient (AMB) | payer OTHER, MEDICAID, SELFPAY ==
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
[2023-06-03 14:44] VITALS: BP 136/63; PULSE 100; O2SAT 97; BMI 30.3
== END 2023-06-03 15:00 | disposition home or self-care (01) ==
PROVIDERS: PCP Internal Medicine; Visit Provider Nurse Practitioner Family
DX: E11.40 Type 2 diabetes mellitus with diabetic neuropathy, unspecified (principal); M54.2 Cervicalgia; M54.50 Low back pain, unspecified
CPT/HCPCS: 99024

== ENCOUNTER → 2023-06-03 14:38 | Outpatient (BNVA) | payer OTHER, MEDICAID, SELFPAY | PROVIDERS: PCP Internal Medicine; Visit Provider Nurse Practitioner Family ==

== ENCOUNTER 2023-06-09 13:30 | Outpatient (AMB) | payer OTHER, MEDICAID, SELFPAY ==
--- NOTE | 2023-06-09 13:32 | MHC.OFFVIS ---
Intake Vital Signs 06/09/23 13:36 Height 5 ft 8 in Weight 199 lb BMI 30.3 BP 148/62 H Blood Pressure Location Rt brachial Position Sitting Pulse 94 Pulse Source Pulse Oximeter Pulse Oximetry (%) 96 Oxygen Delivery Method Room Air Intake Visit Reasons: S/p SCS Implant (Nevro) 05/28/23 Allergies cefazolin [From ANCEF] Allergy (Intermediate, Verified 06/09/23 13:36) ? ALLERGY-COUGH,SOB fentanyl [FENTANYL] Allergy (Intermediate, Verified 06/09/23 13:36) ? ALLERGY, COUGH,SOB pregabalin [From Lyrica] Allergy (Intermediate, Verified 06/09/23 13:36) Nausea HPI HPI Comments History of Present Illness Details Patient is 2 weeks status post Nevro SCS Implant on 05/28/[address] Blackman. Patient reports 65-70% pain relief at a low power, reports no leg pain since SCS placement, improved functioning and mobility, and able to sleep through the night. Patient is aware of activity restrictions in PT and home exercise program status post recent SCS Implant, including no bending, twisting, heavy lifting, or TENS unit. The tape was removed. Incisional sites are clean, dry, intact. No pathological discharge, redness, swelling, erythema or tenderness. Tj removed from both incisions. Both wounds were cleansed with ChloraPrep. Steri-strips were applied to both incisions. Bacitracin ointment, dry sterile and Tegaderm dressing were applied. Patient is wearing abdominal binder. He reports occasional abdominal bloating. He has insulin pump and reports sugars have been under good control. Most recent POC Blood sugar 05/28/23 was 144. SCS program adjusted by Cyril Layton rep status post tj removal and patient was educated on management and charging of SCS device today. Patient is content with pain coverage in his lower extremities. Denies any recent cough, cold, infection, fever or other significant changes in medical history since last office visit. Past Procedures: 05/28/23: Nevro Lumbar SCS Implant ? 70% pain relief??? 03/28/23: Nevro Lumbar SCS Trial-80-90% pain relief PRIOR: Patient presents today for follow up status post Nevro SCS trial on 03/28/23 for diabetic neuropathy. Patient reports 80-90% pain relief for 4 days with significant improvement in his daily activities, functioning, sleep and quality of life. He does report mild surgical site pain and has been taking Tylenol for this. Patient is interested in proceeding with a permanent implant. He currently participates in dialysis and undergoes dialysis on [id number]. We will make arrangements for an SCS implant as soon as possible to optimize his participation in dialysis. PRIOR Dr. Blackman: Patient is a 52-year-old male presenting for a follow-up regarding diabetic neuropathy. Patient?s insurance does not cover topical capsaicin, so he is here to discuss next steps.? He has been unable to sleep normally due to increasing discomfort and pain in his lower extremities.? This has also made it hard for him to tolerate his dialysis sessions and he has had to increase the number of dialysis sessions from 3 to 4 since he cannot sit still long enough to accomplish the full dialysis in 3 sessions.? He is amenable to proceeding with trial of spinal cord stimulation for PDN. ? ? [facility] Medical History Low back pain History of renal dialysis Uses walker CAD (coronary artery disease) On beta candelario at home GERD (gastroesophageal reflux disease) Elevated cholesterol Asthma Dependence on renal dialysis Neuropathy Diabetes HTN (hypertension) Glaucoma Kidney transplant rejection Kidney failure Surgical History S/P arteriovenous (AV) graft placement History of cardiac cath S/P trigger finger release History of kidney transplant Hx of colonoscopy History of esophagogastroduodenoscopy (EGD) Social History Are you a primary care transitions manager to a significant other at home: No Do you presently have visiting nurse or other home services: Yes Alcohol intake: never Patient Tobacco Use Status: Never used Tobacco Advance Directives Date on File: 02/20/21 Current occupational status: unemployed Current occupation: Right Handed Review of Systems Const All systems reviewed & are unremarkable except as noted in HPI and below Physical Exam Vital Signs: Last Vital Signs Pulse 94 06/09/23 13:36 BP 148/62 H 06/09/23 13:36 Pulse Ox 96 06/09/23 13:36 Oxygen Delivery Method Room Air 06/09/23 13:36 BMI result Body Mass Index 30.3 General: Appears afebrile. Alert and oriented. Mood and affect appropriate. Follows and participates in conversation appropriately. Respiratory effort is unlabored. Able to transition from sit to stand unassisted. Uses WC for transfers. Ambulates with bilaterally normal heel strike and toe off. Back/Spine/Pelvis Other: The tape was removed. Incisional sites are clean, dry, intact. No pathological discharge, redness, swelling, erythema or tenderness. Luther were removed, no bleeding s/p tj removal. Patient is on Plavix. Both wounds were cleansed with ChloraPrep. Steri-strips applied to both incisions. Bacitracin ointment, dry sterile and Tegaderm dressing were applied. Assessment & Plan Assessment & Plan (1) Painful diabetic neuropathy: Code(s): E11.40 - Type 2 diabetes mellitus with diabetic neuropathy, unspecified (2) Neck pain: Code(s): M54.2 - Cervicalgia (3) Low back pain: Code(s): M54.50 - Low back pain, unspecified Plan Patient is 2 weeks status post Implantation of Lumbar SCS Nevro for diabetic neuropathy. He is content with pain relief coverage in his lower extremities. Tj were removed today and dressing done as noted above. Continue wearing abdominal binder as needed Avoid showers for 3-5 days. Patient is aware of activity restrictions in PT and home exercise program status post recent SCS Implant, including no bending, twisting, heavy lifting, or TENS unit. All questions were answered and the patient agreed with the plan. Follow up next week for wound check and sooner as needed. Coding Level of Care Code Est Pt Level 3 (48946) Diagnoses Painful diabetic neuropathy E11.40 Neck pain M54.2 Low back pain M54.50
[2023-06-09 13:36] VITALS: BP 148/62; PULSE 94; O2SAT 96; BMI 30.3
== END 2023-06-09 13:51 | disposition home or self-care (01) ==
PROVIDERS: PCP Internal Medicine; Visit Provider Nurse Practitioner Family
DX: E11.40 Type 2 diabetes mellitus with diabetic neuropathy, unspecified (principal); M54.2 Cervicalgia; M54.50 Low back pain, unspecified
CPT/HCPCS: 99213

== ENCOUNTER → 2023-06-09 13:30 | Outpatient (BNVA) | payer OTHER, MEDICAID, SELFPAY | PROVIDERS: PCP Internal Medicine; Visit Provider Nurse Practitioner Family ==

== ENCOUNTER → 2023-06-16 10:15 | Outpatient (BNVA) | payer OTHER, MEDICAID, SELFPAY | PROVIDERS: PCP Internal Medicine; Visit Provider Nurse Practitioner Family | DX: Z48.89 Encounter for other specified surgical aftercare (principal) | CPT/HCPCS: 99211 ==

== ENCOUNTER 2024-01-23 18:52 | Emergency (ER) | payer OTHER, SELFPAY ==
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
[2024-01-23 18:57] VITALS: BP 117/51; PULSE 88; RESP 20; TEMP 36.3; O2SAT 95; BMI 32.4
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
--- OUTSIDE RECORDS SUMMARY | 2024-01-23 20:38 | XMS_ITS | Continuity of Care Document ---
Author Organization [facility] Address [address] [place] [address], [address]r d Floor, [address] [place] [address]- Care Team Providers Care Degreasing Solution Reclaimer Name Role Phone Krishna Tapia MD Primary Care Physician Encounter [facility] Date(s): 11/28/23 - 12/28/23 [facility] [address] [facility] 3rd Floor, [address] [place] [address]- Allergies, Adverse Reactions, Alerts Substance Reaction Severity [...] Given pneumococcal 23-valent vaccine 09/25/07 Given Medications aspirin 81 mg oral delayed release tablet 81 mg, 1, tablet, By Mouth, Daily, Refills 0, Maintenance, 09/04/22 10:00:00 EST, Partial fill uponpatient request if the prescription is for a schedule II opioid drug. Start Date: 09/04/22 Stop Date: 10/04/22 Status: Ordered atorvastatin 40 mg oral tablet 1 tablet = 40 mg, By Mouth, Daily, 0 Refills, Maintenance, 11/07/22 16:04:00 EDT, Tablet, Partial fill upon patient request if the prescription is for a schedule II opioid drug. Start Date: 11/07/22 Status: Ordered brimonidine 0.2% ophthalmic solution 1 drops, Eyes, Both, 2 times a day, 0 Refills, Maintenance, 01/22/19 8:42:13 EDT, Ophth Solution Start Date: 01/22/19 Status: Ordered Compression Stockings See Instructions, # 2 each, Refills 2, Tot. Refills 2, Maintenance, surgical, knee length 20-30 mm Hg, 11/25/22 14:56:00 EDT, Supply Start Date: 11/25/22 Status: Ordered folic acid 1 mg oral [...] 08/29/22 8:44:00 EST, Route to Pharmacy Electronically, [facility], Partial fill upon patient request if the prescription is for a schedul... Start Date: 08/29/22 Stop Date: 09/28/22 Status: Ordered Humalog 100 u/ml subcutaneous injection See Instructions, 130 units Subcutaneous Infusion ON INSULIN PUMP, 0 Refills, Maintenance, 12/16/2312:45:00 EDT, Partial fill upon patient request if the prescription is for a schedule II opioid drug. Start Date: 12/16/22 Status: Ordered magnesium oxide 400 mg oral tablet 1 tablet = 400 mg, By Mouth, Daily, Maintenance, 12/26/23 13:27:00 EDT, Tablet, Partial fill upon patient request if the prescription is for a schedule II opioid drug. Start Date: 12/26/23 Status: Ordered meclizine 25 mg oral tablet 1 tablet = 25 mg, By Mouth, 3 times a day, Maintenance, 12/26/23 13:31:00 EDT, Tablet, Partial fillupon patient request if the prescription is for a schedule II opioid drug. Start Date: 12/26/23 Status: Ordered melatonin 3 mg oral tablet = 3 mg, By Mouth, Daily at bedtime, PRN as needed for insomnia, 0 Refills, Maintenance, 07/30/21 9:18:00 EST, Tablet Start Date: 07/30/21 Status: Ordered metoprolol 50 mg oral tablet, extended release 50 mg, By Mouth, Daily, # 30 tablet, Refills 0, Tot. Refills 0, Maintenance, 12/27/23 11:47:00 EDT,Route to Pharmacy Electronically, [facility] 3, Partial fill upon patient request if the prescription is for a schedule II opioid drug., 17... Start Date: 12/27/23 Status: Ordered Nephro-Rocio oral tablet 1 tablet, By Mouth, Daily, Maintenance, 12/26/23 13:29:00 EDT, Tablet, Partial fill upon patient request if the prescription is for a schedule II opioid drug. Start Date: 12/26/23 Status: Ordered omeprazole 20 mg oral enteric coated capsule 1 capsule = 20 mg, By Mouth, Daily, PRN as needed, 0 Refills, Maintenance, 11/07/22 16:04:00 EDT, EC Capsule, Partial fill upon patient request if the prescription is for a schedule II opioid drug. Start Date: 11/07/22 Status: Ordered Omni Pod Insulin Pump Maintenance, 08/29/22 8:46:00 EST, Supply Start Date: 08/29/22 Status: Ordered predniSONE 5 mg oral tablet 1 tablet = 5 mg, By Mouth, Daily, with food or milk, 0 Refills, Maintenance, 12/26/23 4:14:00 EDT, Tablet, Partial fill upon patient request if the prescription is for a schedule II opioid drug. Start Date: 12/26/23 Status: Ordered Renvela 800 mg oral tablet 2 tablet = 1,600 mg, By Mouth, Daily, at 4pm, Maintenance, 03/09/21 13:29:00 EDT Start Date: 03/09/21 Status: Ordered sodium zirconium cyclosilicate 10 g oral powder for reconstitution = 10 Gm, By Mouth, Every Friday, Friday and Friday, dilute w/45 ml water, mix well, and drink immediately, 0 Refills, Maintenance, 10/23/21 9:13:00 EST Start Date: 10/23/21 Status: Ordered tacrolimus 0.5 mg oral capsule = 0.5 mg, By Mouth, Daily, # 90 tablet, 1 Refills, Maintenance, 10/01/23 11:49:00 EST, Capsule, [facility], Partial fill upon patient request if the prescription is for a schedule II opioiddrug., 173, cm, 10/01/23 10:24:00 EST, Height, 90.5... Start Date: 10/01/23 Status: Ordered tamsulosin 0.4 mg oral capsule 0.4 mg, 1, capsule, By Mouth, Daily, Refills 0, Maintenance, 07/30/21 9:18:00 EST Start Date: 07/30/21 Status: Ordered Vitamin B12 1000 mcg oral tablet 1 tablet = 1,000 mcg, By Mouth, Daily, Maintenance, 12/26/23 13:31:00 EDT, Tablet, Partial fill upon patient request if the prescription is for a schedule II opioid drug. Start Date: 12/26/23 Status: Ordered Vitamin D2 50,000 intl units (1.25 mg) oral capsule 1 capsule = 50,000 International_Units, By Mouth, Every 30 days, Maintenance, 12/26/23 13:33:00 EDT, Capsule, Partial fill upon patient request if the prescription is for a schedule II opioid drug. Start Date: 12/26/23 Status: Ordered Xalatan 0.005% solution 1 drops, [...] MRI Safety Implantable Status Assigning Authority Unknown [id number] Unknown Unknown 09/26/25 Unknown Unknown Active Unknown Patient Care team information Care Team Personnel Name: Wild Santos RN Position: [facility] RN Member Role: Primary Care Nurse Name: Lucy Garcia RN Position: [facility] ED RN W/OE and Tasks Member Role: Primary Care Nurse Name: Julianna Mazariegos RN Position: [facility] RN Member Role: Primary Care Nurse Name: Simin Rosario RN Position: [facility] RN Member Role: Primary Care Nurse Name: Nupur Young RN Position: [facility] RN Member Role: Primary Care Nurse Name: Faby Saleh RN Position: [facility] RN Member Role: Primary Care Nurse Name: Janie Kunz RN Position: [facility] RN Member Role: Primary Care Nurse Name: Krishna Tapia MD Position: [facility] Outreach Member Role: PCP Address: Address: [address] [place] [address] [place] [address]- Name: Estella Mann Position: [facility] Associate Professional Member Role: Lifetime Consulting Provider Address: Address: [address] [place] [address] [address] [facility] [place] [address]- [place] Name: Miguelangel Cancino MD Position: [facility] Renal MD Member Role: Lifetime Consulting Physician Address: Address: [address] [place] [address] [address] [facility] [place] [address]- [place] Name: Filomena Austin RN Position: [facility] RN Member Role: Primary Care Nurse Name: Venkatesh Tirado RN Position: [facility] Outreach Member Role: Primary Care Nurse Name: Maddy Skelton Position: [facility] RN Member Role: Primary Care Nurse Name: Elise Yao LPN Position: [facility] RN Member Role: Primary Care Nurse Name: Barak Shaw DO Position: [facility] Renal MD Member Role: Lifetime Consulting Physician Address: Address: [address] [place] [address] [address] [facility] [place] [address]- Name: RodyTayla richards Position: [facility] Outreach Member Role: Lifetime Consulting Physician Name: Niki Montes RN Position: [facility] RN Member Role: Primary Care Nurse Name: Stella Calhoun RN Position: [facility] RN Member Role: Primary Care Nurse Name: Wes Lezama Position: [facility] Associate Professional Member Role: Lifetime Consulting Provider Address: Address: [address] [place] [address]- Name: Kinjal Macias RN Position: [facility] RN Member Role: Primary Care Nurse Name: Estephania Pizano RN Position: [facility] ED RN W/OE and Tasks Member Role: Primary Care Nurse Name: Zita Barrow RN Position: [facility] AMB Nurse Member Role: Primary Care Nurse Name: Alexis Brooke MD Position: [facility] Renal MD Member Role: Lifetime Consulting Physician Address: Address: [address] [place] [address] [address] [facility] [place] [address]- Name: Chantelle Villareal RN Position: [facility] RN Member Role: Primary Care Nurse Name: Brisa Michaels RN Position: [facility] RN Member Role: Primary Care Nurse Name: London Chau RN Position: [facility] RN Member Role: Primary Care Nurse Name: Ana Schafer RN Position: [facility] RN Member Role: Primary Care Nurse Name: Liz Aguilera RN Position: [facility] Outreach Member Role: Lifetime Consulting Physician Name: Reyna Dumont RN Position: [facility] RN Member Role: Primary Care Nurse Name: Sudhir Chan Position: [facility] Outreach Member Role: Lifetime Consulting Physician Name: Roselia Crain RN Position: [facility] RN Member Role: Primary Care Nurse Name: Marcelo Joy MD Position: [facility] Renal MD Member Role: Lifetime Consulting Physician Address: Address: [address] [place] [address] [facility] [place] [address]- Name: Nell Copeland RN Position: [facility] RN Member Role: Primary Care Nurse Name: Star Hagen RN Position: [facility] RN Member Role: Primary Care Nurse Name: Odalis Roy RN Position: [facility] SN RN Member Role: Primary Care Nurse Name: Merline Carlson RN Position: [facility] RN Member Role: Primary Care Nurse Name: Serena Allen RN Position: [facility] Onco RN Member Role: Primary Care Nurse Name: Maura Tsang RN Position: [facility] RN Member Role: Primary Care Nurse Care Team Related Persons Name: KAYCE PARK Address: [address] [place] [address] Name: SANTIAGO NAZARIO Address: home [address] [place] [address]
--- OUTSIDE RECORDS SUMMARY | 2024-01-23 20:38 | XMS_ITS | Continuity of Care Document ---
Author Organization [facility] Address [address] [place] [address]- Care Team Providers Care Payroll Machine Operator Name Role Phone Krishna Tapia MD Primary Care Physician Encounter [facility] Date(s): 07/02/23 - 08/01/23 [facility] [address] [place], [place] [address] [[email or web address]] Attending Physician: AdmKyler escalante Admitting Physician: AdmtrKyler [...] 0 Refills, Maintenance, 06/22/22 6:51:00 EDT, [facility]apsule[facility], Partial fill upon patient request if the prescription is for a schedule II opioid drug.... Start Date: 06/22/22 Stop Date: 07/22/22 Status: Ordered clopidogrel 75 mg oral tablet 75 mg, 1, tablet, By Mouth, Daily, # 90 tablet, Refills 0, Maintenance, 06/24/23 11:39:00 EDT, Partial fill upon patient request if the prescription is for a schedule II opioid drug. Start Date: 06/24/23 Status: Ordered Compression Stockings See Instructions, # [...] 08/29/22 8:44:00 EST, Route to Pharmacy Electronically, [facility], Partial fill upon patient request [...] EVERY DAY, # 180 tablet, 1 Refills, [facility], 173,cm, 01/24/22 16:16:00 EDT, Height, 91.1, kg, [...] 11/07/22 16:29:00 EDT, Route to Pharmacy Electronically, [facility], Partial fill upon patient request if [...] EST, Supply Start Date: 08/29/22 Status: Ordered Please discontinue clopidpogrel 75 mg daily. Please discontinue clopidpogrel 75 mg daily., See Instructions, # 1 each, Refills 0, Tot. Refills 0, Maintenance, See above, 06/24/23 12:07:00 EDT, Supply, 173, cm, 06/24/23 11:39:00 EDT, Height, 97.5, kg, 12/14/22 10:06:00 EDT, Dry Weight Start Date: 06/24/23 Status: Ordered Renvela 800 mg oral tablet 1 tablet = 800 mg, By Mouth, 3 times a day with meals, Maintenance, 03/09/21 13:29:00 EDT Start Date: 03/09/21 Status: Ordered sacubitril-valsartan 24 mg-26 mg oral tablet 1 tablet, By Mouth, 2 times a day, # 180 tablet, 4 Refills, Maintenance, 06/24/23 12:07:00 EDT, Tablet, [facility], Partial fill upon patient request if the prescription is for a schedule II opioid drug., 1 tablet By Mouth 2 times a day,x90... Start Date: 06/24/23 Stop Date: 09/16/24 Status: Ordered sodium zirconium cyclosilicate 10 g [...] MRI Safety Implantable Status Assigning Authority Unknown [id number] Unknown Unknown 09/26/25 Unknown Unknown Active Unknown Patient Care team information Care Team Personnel Name: Wild Santos RN Position: [facility] RN Member Role: Primary Care Nurse Name: Lucy Garcia RN Position: S RN Member Role: Primary Care Nurse Name: Julianna Mazariegos RN Position: S RN Member Role: Primary Care Nurse Name: Simin Rosario RN Position: [facility] RN Member Role: Primary Care Nurse Name: Janie Kunz RN Position: S RN Member Role: Primary Care Nurse Name: Krishna Tapia MD Position: [facility] Outreach Member Role: PCP Address: Address: [address] [place] [address] Krishna Layne [place] - [place] Name: Miguelangel Cancino MD Position: [facility] Renal MD Member Role: Lifetime Consulting Physician Address: Address: [address] [place] [address] [address] [facility] [address]- [place] Name: Lavonne Mckenzie RN Position: [facility] RN Member Role: Primary Care Nurse Name: Filomena Austin RN Position: S RN Member Role: Primary Care Nurse Name: Faby Guido RN Position: S RN Member Role: Primary Care Nurse Name: Maddy Skelton Position: [facility] RN Member Role: Primary Care Nurse Name: Elise Yao LPN Position: [facility] RN Member Role: Primary Care Nurse Name: Barak Shaw DO Position: [facility] Renal MD Member Role: Lifetime Consulting Physician Address: Address: [address] [place] [address] [address] [facility] [place] [address]- Name: Tayla Fine Position: [facility] Outreach Member Role: Lifetime Consulting Physician Name: Niki Montes RN Position: [facility] RN Member Role: Primary Care Nurse Name: Stella Calhoun RN Position: [facility] RN Member Role: Primary Care Nurse Name: Wes Lezama Position: [facility] Associate Professional Member Role: Lifetime Consulting Provider Address: Address: [address] [place] [address]- Name: Kinjal Macias RN Position: [facility] RN Member Role: Primary Care Nurse Name: Estephania Pizano RN Position: [facility] ED RN W/OE and Tasks Member Role: Primary Care Nurse Name: Zita Barrow RN Position: [facility] SN RN Member Role: Primary Care Nurse Name: Alexis Brooke MD Position: [facility] Renal MD Member Role: Lifetime Consulting Physician Address: Address: [address] [place] [address] [address] [facility] [place] [address]- Name: Chantelle Villareal RN Position: [facility] RN Member Role: Primary Care Nurse Name: Brisa Michaels RN Position: [facility] RN Member Role: Primary Care Nurse Name: London Chau RN Position: S RN Member Role: Primary Care Nurse Name: Ana Schafer RN Position: S RN Member Role: Primary Care Nurse Name: Liz Aguilera RN Position: [facility] Outreach Member Role: Lifetime Consulting Physician Name: Sudhir Chan Position: [facility] Outreach Member Role: Lifetime Consulting Physician Name: Roselia Crain RN Position: [facility] RN Member Role: Primary Care Nurse Name: Jorge Crews RN Position: S RN Member Role: Primary Care Nurse Address: Address: [address] [place] [address] Name: Marcelo Joy MD Position: [facility] Renal MD Member Role: Lifetime Consulting Physician Address: Address: [address] [place] [address] [facility] [address] Name: Nell Copeland RN Position: [facility] RN Member Role: Primary Care Nurse Name: Star Hagen RN Position: [facility] RN Member Role: Primary Care Nurse Name: Odalis Roy RN Position: [facility] SN RN Member Role: Primary Care Nurse Name: Merline Carlson RN Position: S RN Member Role: Primary Care Nurse Name: Nupur Black RN Position: [facility] RN Member Role: Primary Care Nurse Name: Serena Allen RN Position: [facility] Onco RN Member Role: Primary Care Nurse Name: Maura Tsang RN Position: [facility] RN Member Role: Primary Care Nurse Care Team Related Persons Name: KAYCE PARK Address: [address] [place] [address] Name: NAZARIO SANTIAGO Address: [address] [place] [address]
--- OUTSIDE RECORDS SUMMARY | 2024-01-23 20:39 | XMS_ITS | Continuity of Care Document ---
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 Name Role Phone Krishna Tapia MD Primary Care Physician Encounter [facility] Date(s): 04/07/23 - 06/15/23 [facility] [address] [place], [place] [address] Attending Physician: Jesse Sorenson MD Allergies, [...] 0 Refills, Maintenance, 06/22/22 6:51:00 EDT, Capsule, [facility], Partial fill upon patient request if [...] 08/29/22 8:44:00 EST, Route to Pharmacy Electronically, [facility], Partial fill upon patient request if [...] EVERY DAY, # 180 tablet, 1 Refills, [facility], 173,cm, 01/24/22 16:16:00 EDT, Height, 91.1, kg, [...] 11/07/22 16:29:00 EDT, Route to Pharmacy Electronically, [facility], Partial fill upon patient request if [...] MRI Safety Implantable Status Assigning Authority Unknown [id number] Unknown Unknown 09/26/25 Unknown Unknown Active Unknown [...] Care Nurse Name: Janie Kunz RN Position: [facility] RN Member Role: Primary Care Nurse Name: Krishna Tapia MD Position: [facility] Outreach Member Role: PCP Address: Address: [address] [place] [address] Krishna Tapia MD [place], [place] [address] Name: Miguelangel Cancino MD Position: [facility] Renal MD Member Role: Lifetime Consulting Physician Address: Address: [address] [place] [address], [address] [facility] [place] [address]- Name: Lavonne Mckenzie RN Position: [facility] RN Member Role: Primary Care Nurse Name: Filomena Austin RN Position: [facility] RN Member Role: Primary Care Nurse Name: Faby Guido RN Position: S RN Member Role: Primary Care Nurse Name: Maddy Skelton Position: S RN Member Role: Primary Care Nurse Name: Elise Yao LPN Position: [facility] RN Member Role: Primary Care Nurse Name: Barak hSaw DO Position: [facility] Renal MD Member Role: Lifetime Consulting Physician Address: Address: [address] [place] [address] [address] [facility] [place] [address]- [place] Name: Tayla Fine Position: S Outreach Member Role: Lifetime Consulting Physician Name: Niki Montes RN Position: [facility] RN Member Role: Primary Care Nurse Name: Stella Calhoun RN Position: S RN Member Role: Primary Care Nurse Name: Wes Lezama Position: [facility] Associate Professional Member Role: Lifetime Consulting Provider Address: Address: [address] [place] [address]- Name: Kinjal Macias RN Position: [facility] RN Member Role: Primary Care Nurse Name: Estephania Pizano RN Position: [facility] ED RN W/OE and Tasks Member Role: Primary Care Nurse Name: Zita Barrow RN Position: [facility] SN RN Member Role: Primary Care Nurse Name: Alexis Brooke MD Position: [facility] Renal MD Member Role: Lifetime Consulting Physician Address: Address: [address] [place] [address] [address] [facility] [place] [address]- Name: Chantelle Villareal RN Position: [facility] RN Member Role: Primary Care Nurse Name: Brisa Michaels RN Position: [facility] RN Member Role: Primary Care Nurse Name: London Chau RN Position: [facility] RN Member Role: Primary Care Nurse Name: Ana Schafer RN Position: [facility] RN Member Role: Primary Care Nurse Name: Liz Aguilera RN Position: [facility] Outreach Member Role: Lifetime Consulting Physician Name: Sudhir Chan Position: [facility] Outreach Member Role: Lifetime Consulting Physician Name: Monique Guzmán RN Position: [facility] RN Member Role: Primary Care Nurse Name: Roselia Crain RN Position: [facility] RN Member Role: Primary Care Nurse Name: Jorge Crews RN Position: [facility] RN Member Role: Primary Care Nurse Address: Address: [address] [place] [address]- Name: Marcelo Joy MD Position: [facility] Renal MD Member Role: Lifetime Consulting Physician Address: Address: [address] [place] [address] [facility] [place] [address]- Name: Nell Copeland RN Position: [facility] RN Member Role: Primary Care Nurse Name: Star Hagen RN Position: [facility] RN Member Role: Primary Care Nurse Name: Odalis Roy RN Position: [facility] SN RN Member Role: Primary Care Nurse Name: Merline Carlson RN Position: [facility] RN Member Role: Primary Care Nurse Name: Nupur Black RN Position: [facility] RN Member Role: Primary Care Nurse Name: Serena Allen RN Position: [facility] Onco RN Member Role: Primary Care Nurse Name: Maura Tsang RN Position: [facility] RN Member Role: Primary Care Nurse Care Team Related Persons Name: KAYCE PARK Address: [address] [place] [address] Name: SANTIAGO NAZARIO Address: [address] [place] [address]
--- OUTSIDE RECORDS SUMMARY | 2024-01-23 20:39 | XMS_ITS | Continuity of Care Document ---
Author Organization [facility] Ezra jeanna Address [address] [place] [address] [address] [place] [address]- Care Team Providers Care Ignition Mechanic Name Role Phone Krishna Tapia MD Primary Care Physician [phone] Encounter [facility] [place] Date(s): 05/16/23 - 06/15/23 [facility] [address] [place], [place] [address] Attending Physician: Admtr, Ar8 Admitting Physician: Admtr, [...] 0 Refills, Maintenance, 06/22/22 6:51:00 EDT, Capsule, [facility], Partial fill upon patient request if [...] 08/29/22 8:44:00 EST, Route to Pharmacy Electronically, [facility], Partial fill upon patient request if [...] 180 tablet, 1 Refills, [facility], 173,cm, 01/24/22 16:16:00 EDT, Height, 91.1, kg, [...] MRI Safety Implantable Status Assigning Authority Unknown [id number] Unknown Unknown 09/26/25 Unknown Unknown Active Unknown Patient Care team information Care Team Personnel Name: Wild Santos RN Position: S RN Member Role: Primary Care Nurse Name: Lucy Garcia RN Position: S RN Member Role: Primary Care Nurse Name: Julianna Mazariegos RN Position: [facility] RN Member Role: Primary Care Nurse Name: Simin Rosario RN Position: [facility] RN Member Role: Primary Care Nurse Name: Janie Kunz RN Position: [facility] RN Member Role: Primary Care Nurse Name: Krishna Tapia MD Position: [facility] Outreach Member Role: PCP Address: Address: [address] [place] [address] [place] [address]- Name: Miguelangel Cancino MD Position: [facility] Renal MD Member Role: Lifetime Consulting Physician Address: Address: [address] [place] [address], [address] [facility] [place] [address]- Name: Lavonne Mckenzie RN Position: [facility] RN Member Role: Primary Care Nurse Name: Filomena Austin RN Position: S RN Member Role: Primary Care Nurse Name: Faby Guido RN Position: [facility] RN Member Role: Primary Care Nurse Name: Maddy Skelton Position: [facility] RN Member Role: Primary Care Nurse Name: Elise Yao LPN Position: [facility] RN Member Role: Primary Care Nurse Name: Barak Shaw DO Position: [facility] Renal MD Member Role: Lifetime Consulting Physician Address: Address: [address] [place] [address] [address] [facility] [place] [address]- Name: Tayla Fine Position: [facility] Outreach Member Role: Lifetime Consulting Physician Name: Niki Montes RN Position: [facility] RN Member Role: Primary Care Nurse Name: Stella Calhoun RN Position: S RN Member Role: Primary Care Nurse Name: Wes Lezama Position: [facility] Associate Professional Member Role: Lifetime Consulting Provider Address: Address: [address] [place] [address]- Name: Kinjal Macias RN Position: [facility] RN Member Role: Primary Care Nurse Name: Estephania Pizano RN Position: [facility] ED RN W/OE and Tasks Member Role: Primary Care Nurse Name: Zita Barrow RN Position: [facility] SN RN Member Role: Primary Care Nurse Name: Alexis Brooke MD Position: [facility] Renal MD Member Role: Lifetime Consulting Physician Address: Address: [address] [place] [address] [address] [facility] [place] [address]- Name: Chantelle Villareal RN Position: [facility] RN Member Role: Primary Care Nurse Name: Brisa Michaels RN Position: [facility] RN Member Role: Primary Care Nurse Name: London Chau RN Position: [facility] RN Member Role: Primary Care Nurse Name: Ana Schafer RN Position: [facility] RN Member Role: Primary Care Nurse Name: Liz Aguilera RN Position: [facility] Outreach Member Role: Lifetime Consulting Physician Name: Sudhir Chan Position: [facility] Outreach Member Role: Lifetime Consulting Physician Name: Monique Guzmán RN Position: [facility] RN Member Role: Primary Care Nurse Name: Roselia Crain RN Position: [facility] RN Member Role: Primary Care Nurse Name: Jorge Crews RN Position: [facility] RN Member Role: Primary Care Nurse Address: Address: [address] [place] [address]- Name: Marcelo Joy MD Position: [facility] Renal MD Member Role: Lifetime Consulting Physician Address: Address: [address] [place] [address] [facility] [place] [address]- Name: Nell Copeland RN Position: [facility] RN Member Role: Primary Care Nurse Name: Star Hagen RN Position: [facility] RN Member Role: Primary Care Nurse Name: Odalis Roy RN Position: [facility] SN RN Member Role: Primary Care Nurse Name: Merline Carlson RN Position: [facility] RN Member Role: Primary Care Nurse Name: Nupur Black RN Position: [facility] RN Member Role: Primary Care Nurse Name: Serena Allen RN Position: [facility] Onco RN Member Role: Primary Care Nurse Name: Trinh JESSICA, Maura Position: S RN Member Role: Primary Care Nurse Care Team Related Persons Name: KAYCE PARK Address: home [address] [place] [address] Name: SANTIAGO NAZARIO Address: [address] [place] [address]
--- OUTSIDE RECORDS SUMMARY | 2024-01-23 20:39 | XMS_ITS | Continuity of Care Document ---
Author Organization [facility] Address [address] [place] [address]- Care Team Providers Care Detasseler Name Role Phone Krishna Tapia MD Primary Care Physician Encounter [facility] [place] Date(s): 05/23/23 - 06/22/[address] [address] Attending Physician: AdmKyler escalante Admitting Physician: Admtr, Kyler Referring Physician: Admtr, Ar8 Allergies, Adverse Reactions, [...] 0 Refills, Maintenance, 06/22/22 6:51:00 EDT, [facility], Partial fill upon patient [...] 08/29/22 8:44:00 EST, Route to Pharmacy Electronically, [facility], Partial fill upon patient [...] EVERY DAY, # 180 tablet, 1 Refills, [facility], 173,cm, 01/24/22 16:16:00 EDT, Height, 91.1, kg, [...] 11/07/22 16:29:00 EDT, Route to Pharmacy Electronically, [facility], Partial fill upon patient request if [...] MRI Safety Implantable Status Assigning Authority Unknown [id number] Unknown Unknown 09/26/25 Unknown Unknown Active Unknown [...] Nurse Name: Krishna Tapia MD Position: [facility] Outreach Member Role: PCP Address: Address: [address] [place] [address] [place] [address]- Name: Miguelangel Cancino MD Position: [facility] Renal MD Member Role: Lifetime Consulting Physician Address: Address: [address] [place] [address], [address] [facility] [place] [address]- [place] Name: Lavonne Mckenzie RN Position: S [...] Nurse Name: Barak Shaw DO Position: [facility] Renal MD Member Role: Lifetime Consulting Physician Address: Address: [address] [place] [address] [address] [facility] [place] [address]- [place] Name: Tayla Fine Position: [facility] Outreach Member Role: Lifetime Consulting Physician Name: Niki Montes RN Position: S RN Member Role: Primary Care Nurse Name: Stella Calhoun RN Position: S RN Member Role: Primary Care Nurse Name: Wes Lezama Position: [facility] Associate Professional Member Role: Lifetime Consulting Provider Address: Address: [address] [place] [address]- Name: Kinjal Macias RN Position: [facility] RN Member Role: Primary Care Nurse Name: Estephania Pizano RN Position: [facility] ED RN W/OE and Tasks Member Role: Primary Care Nurse Name: Zita Barrow RN Position: [facility] SN RN Member Role: Primary Care Nurse Name: Alexis Brooke MD Position: [facility] Renal MD Member Role: Lifetime Consulting Physician Address: Address: [address] [place] [address] [address] [facility] [place] [address]- Name: Chantelle Villareal RN Position: [facility] RN Member Role: Primary Care Nurse Name: Brisa Michaels RN Position: [facility] RN Member Role: Primary Care Nurse Name: London Chau RN Position: [facility] RN Member Role: Primary Care Nurse Name: Ana Schafer RN Position: [facility] RN Member Role: Primary Care Nurse Name: Liz Aguilera RN Position: [facility] Outreach Member Role: Lifetime Consulting Physician Name: Sudhir Chan Position: [facility] Outreach Member Role: Lifetime Consulting Physician Name: Roselia Crain RN Position: [facility] RN Member Role: Primary Care Nurse Name: Jorge Crews RN Position: [facility] RN Member Role: Primary Care Nurse Address: Address: [address] [place] [address]- Name: Marcelo Joy MD Position: [facility] Renal MD Member Role: Lifetime Consulting Physician Address: Address: [address] [place] [address] [facility] [place] [address]- Name: Nell Copeland RN Position: [facility] RN Member Role: Primary Care Nurse Name: Star Hagen RN Position: [facility] RN Member Role: Primary Care Nurse Name: Odalis Roy RN Position: [facility] SN RN Member Role: Primary Care Nurse Name: Merline Carlson RN Position: [facility] RN Member Role: Primary Care Nurse Name: Nupur Black RN Position: [facility] RN Member Role: Primary Care Nurse Name: Serena Allen RN Position: [facility] Onco RN Member Role: Primary Care Nurse Name: Maura Tsang RN Position: [facility] RN Member Role: Primary Care Nurse Care Team Related Persons Name: KAYCE PARK Address: [address] [place] [address] Name: SANTIAGO NAZARIO Address: [address] [place] [address]
--- OUTSIDE RECORDS SUMMARY | 2024-01-23 20:39 | XMS_ITS | Continuity of Care Document ---
Author Organization [facility] Address [address] [place] [address]- Care Team Providers Care Retail Area Manager Name Role Phone Krishna Tapia MD Primary Care Physician Encounter [facility] [place] Date(s): 02/27/23 - 06/27/23 [facility] [address] [place], [place] [address] Attending Physician: Vincent Drake MD Admitting Physician: Vincent Drake MD Referring Physician: Vincent Drake MD Allergies, Adverse Reactions, [...] 0 Refills, Maintenance, 06/22/22 6:51:00 EDT, Capsule, [facility], Partial fill upon patient request [...] 08/29/22 8:44:00 EST, Route to Pharmacy Electronically, [facility], Partial fill upon [...] EVERY DAY, # 180 tablet, 1 Refills, [facility], 173,cm, 01/24/22 16:16:00 EDT, Height, 91.1, kg, [...] 11/07/22 16:29:00 EDT, Route to Pharmacy Electronically, [facility], Partial fill upon patient request if [...] 4 Refills, Maintenance, 06/24/23 12:07:00 EDT, Tablet, [facility], Partial fill upon patient request if [...] MRI Safety Implantable Status Assigning Authority Unknown [id number] Unknown Unknown 09/26/25 Unknown Unknown Active Unknown [...] Nurse Name: Krishna Tapia MD Position: [facility] Outreach Member Role: PCP Address: Address: [address] Krishna Jameson [address] [place], [place] - [place] Name: Miguelangel Cancino MD Position: [facility] Renal MD Member Role: Lifetime Consulting Physician Address: Address: [address] [place] [address] [address] [facility] [address]- [place] Name: Lavonne Mckenzie RN Position: [facility] RN Member Role: Primary Care Nurse Name: Filomena Austin RN Position: [facility] RN Member Role: Primary Care Nurse Name: Faby Guido RN Position: [facility] RN Member Role: Primary Care Nurse Name: Maddy Skelton Position: [facility] RN Member Role: Primary Care Nurse Name: Elise Yao LPN Position: [facility] RN Member Role: Primary Care Nurse Name: Barak Shaw DO Position: [facility] Renal MD Member Role: Lifetime Consulting Physician Address: Address: [address] [place] [address] [address] [facility] [place] [address]- Name: Tayla Fine Position: [facility] Outreach Member Role: Lifetime Consulting Physician Name: Niki Mnotes RN Position: [facility] RN Member Role: Primary Care Nurse Name: Stella Calhoun RN Position: [facility] RN Member Role: Primary Care Nurse Name: Wes Lezama Position: [facility] Associate Professional Member Role: Lifetime Consulting Provider Address: Address: [address] [place] [address]- Name: Kinjal Macias RN Position: [facility] RN Member Role: Primary Care Nurse Name: Estephania Pziano RN Position: [facility] ED RN W/OE and Tasks Member Role: Primary Care Nurse Name: Zita Barrow RN Position: [facility] SN RN Member Role: Primary Care Nurse Name: Alexis Brooke MD Position: [facility] Renal MD Member Role: Lifetime Consulting Physician Address: Address: [address] [place] [address] [address] [facility] [place] [address]- Name: Chantelle Villareal RN Position: [facility] RN Member Role: Primary Care Nurse Name: Brisa Michaels RN Position: [facility] RN Member Role: Primary Care Nurse Name: London Chau RN Position: [facility] RN Member Role: Primary Care Nurse Name: Ana Schafer RN Position: [facility] RN Member Role: Primary Care Nurse Name: Liz Aguilera RN Position: [facility] Outreach Member Role: Lifetime Consulting Physician Name: Sudhir Chan Position: [facility] Outreach Member Role: Lifetime Consulting Physician Name: Roselia Crain RN Position: [facility] RN Member Role: Primary Care Nurse Name: Jorge Crews RN Position: [facility] RN Member Role: Primary Care Nurse Address: Address: [address] [place] [address] Name: Marcelo Joy MD Position: [facility] Renal MD Member Role: Lifetime Consulting Physician Address: Address: [address] [place] [address] [facility] [place] [place] [address]- Name: Nell Copeland RN Position: [facility] RN Member Role: Primary Care Nurse Name: Star Hagen RN Position: [facility] RN Member Role: Primary Care Nurse Name: Odalis Roy RN Position: [facility] SN RN Member Role: Primary Care Nurse Name: Merline Carlson RN Position: [facility] RN Member Role: Primary Care Nurse Name: Nupur Black RN Position: [facility] RN Member Role: Primary Care Nurse Name: Serena Allen RN Position: [facility] Onco RN Member Role: Primary Care Nurse Name: Maura Tsang RN Position: [facility] RN Member Role: Primary Care Nurse Care Team Related Persons Name: KAYCE PARK Address: [address] [place] [address] Name: SANTIAGO NAZARIO Address: [address] [place] [address]
--- OUTSIDE RECORDS SUMMARY | 2024-01-23 20:40 | XMS_ITS | Continuity of Care Document ---
Author Organization [facility] Address [address] [place] [address], [address] d Floor, [address] [place] [address]- Care Team Providers Care Regional Telecommunications Specialist Name Role Phone Krishna Tapia MD Primary Care Physician [place] [facility] [place](s): 12/18/23 - 01/17/24 [facility] [address] [facility] 3rd Floor, [address] [place] [address]- Allergies, Adverse Reactions, Alerts Substance Reaction Severity [...] EST Start Date: 07/30/21 Status: Ordered furosemide 40 mg oral tablet 40 mg, 1, tablet, By Mouth, Daily, # 30 tablet, Refills 0, Tot. Refills 0, Maintenance, 12/31/23 15:18:00 EDT, Route to Pharmacy Electronically, [facility], this is a dose change, please cancel prescription for furosemide 80mg, 173, cm, 05/0... Start Date: 12/31/23 Stop Date: 01/30/24 Status: Ordered gabapentin 300 mg oral capsule 300 mg, 1, capsule, By Mouth, 3 times a day, # 90 capsule, Refills 0, Tot. Refills 0, Maintenance, 08/29/22 8:44:00 EST, Route to Pharmacy Electronically, [facility], Partial fill upon patient [...] mg, By Mouth, 3 times a day, PRN as needed for dizziness, Maintenance, 12/26/23 13:31:00 EDT, Tablet, Partial fill upon patient request if the prescription is for a schedule II opioid drug. Start Date: 12/26/23 Status: Ordered melatonin 3 mg oral tablet = 3 mg, By Mouth, Daily at bedtime, PRN as needed for insomnia, 0 Refills, Maintenance, 07/30/21 9:18:00 EST, Tablet Start Date: 07/30/21 Status: Ordered metoprolol 25 mg oral tablet, extended release 25 mg, 1, tablet, By Mouth, Daily, # 30 tablet, Refills 0, Tot. Refills 0, Maintenance, 12/31/23 15:17:00 EDT, Route to Pharmacy Electronically, [facility], This is a dose change, please cancel prescription for metoprolol 50mg, 173, cm, 05/0... Start Date: 12/31/23 Stop Date: 01/30/24 Status: Ordered Nephro-Rocio oral tablet 1 tablet, [...] EST, Supply Start Date: 08/29/22 Status: Ordered patiromer 8.4 g oral powder for reconstitution = 8.4 Gm, By Mouth, Every Friday, Friday and Friday, # 12 each, 0 Refills, Maintenance, 12/30/2413:01:00 EDT, Partial fill upon patient request if the prescription is for a schedule II opioid drug. Start Date: 12/31/23 Stop Date: 01/30/24 Status: Ordered predniSONE 5 mg oral tablet [...] 13:29:00 EDT Start Date: 03/09/21 Status: Ordered tacrolimus 0.5 mg oral capsule = 0.5 mg, By Mouth, Daily, # 90 tablet, 1 Refills, Maintenance, 12/31/23 13:15:00 EDT, Capsule, [facility], Partial fill upon patient request if the prescription is for a schedule II opioiddrug., 173, cm, 12/31/23 11:31:00 EDT, Height, 91.7... Start Date: 12/31/23 Status: Ordered tamsulosin 0.4 mg oral capsule [...] MRI Safety Implantable Status Assigning Authority Unknown [id number] Unknown Unknown 09/26/25 Unknown Unknown Active Unknown Patient Care team information Care Team Personnel Name: Wild Santos RN Position: [facility] RN Member Role: Primary Care Nurse Name: Dolly Mccormick RN Position: [facility] RN Member Role: Primary Care Nurse Name: Lucy Garcia RN Position: [facility] ED RN W/OE and Tasks Member Role: Primary Care Nurse Name: Julianna Mazariegos RN Position: [facility] RN Member Role: Primary Care Nurse Name: Simin Rosario RN Position: [facility] RN Member Role: Primary Care Nurse Name: Nupur Young RN Position: [facility] RN Member Role: Primary Care Nurse Name: Faby Saleh RN Position: [facility] RN Member Role: Primary Care Nurse Name: Janie Kunz RN Position: [facility] RN Member Role: Primary Care Nurse Name: Krishna Tapia MD Position: [facility] Outreach Member Role: PCP Address: Address: [address] [place] [address] Drive [place] [address]- [place] Name: Estella Mnan Position: [facility] Associate Professional Member Role: Lifetime Consulting Provider Address: Address: [address] [place] [address] [address] [facility] [place] [address]- [place] Name: Miguelangel Cancino MD Position: [facility] Renal MD Member Role: Lifetime Consulting Physician Address: Address: [address] [place] [address] [address] [facility] [place] [address]- [place] Name: Filomena Austin RN Position: [facility] RN Member Role: Primary Care Nurse Name: Venkatesh Tirado RN Position: [facility] Outreach Member Role: Primary Care Nurse Name: Maddy Skelton Position: [facility] RN Member Role: Primary Care Nurse Name: Elise Yao LPN Position: [facility] RN Member Role: Primary Care Nurse Name: Barak Shaw DO Position: [facility] Renal MD Member Role: Lifetime Consulting Physician Address: Address: [address] [place] [address] [address] [facility] [place] [address]- Name: Talya Fine Position: [facility] Outreach Member Role: Lifetime Consulting Physician Name: Niki Montes RN Position: [facility] RN Member Role: Primary Care Nurse Name: Stella Calhoun RN Position: [facility] RN Member Role: Primary Care Nurse Name: Wes Lezama Position: [facility] Associate Professional Member Role: Lifetime Consulting Provider Address: Address: [address] [place] [address]- Name: Kinjal Macias RN Position: [facility] RN Member Role: Primary Care Nurse Name: Estephania Pizano RN Position: [facility] ED RN W/OE and Tasks Member Role: Primary Care Nurse Name: Zita Barrow RN Position: [facility] AMB Nurse Member Role: Primary Care Nurse Name: Alexis Brooke MD Position: [facility] Renal MD Member Role: Lifetime Consulting Physician Address: Address: [address] [place] [address] [address] [facility] [place] [address]- Name: Chantelle Villareal RN Position: [facility] RN Member Role: Primary Care Nurse Name: Brisa Michaels RN Position: [facility] RN Member Role: Primary Care Nurse Name: London Chau RN Position: [facility] RN Member Role: Primary Care Nurse Name: Neelima Fritz RN Position: [facility] RN Member Role: Primary Care Nurse Name: Ana Schafer RN Position: [facility] RN Member Role: Primary Care Nurse Name: Liz Aguilera RN Position: [facility] Outreach Member Role: Lifetime Consulting Physician Name: Reyna Dumont RN Position: [facility] RN Member Role: Primary Care Nurse Name: Sudhir Chan Position: [facility] Outreach Member Role: Lifetime Consulting Physician Name: Roselia Crain RN Position: [facility] RN Member Role: Primary Care Nurse Name: Marcelo Joy MD Position: [facility] Renal MD Member Role: Lifetime Consulting Physician Address: Address: [address] [place] [address] [facility] [address] Name: Nell Copeland RN Position: [facility] RN Member Role: Primary Care Nurse Name: Star Hagen RN Position: [facility] RN Member Role: Primary Care Nurse Name: Odalis Roy RN Position: [facility] SN RN Member Role: Primary Care Nurse Name: Merline Carlson RN Position: [facility] RN Member Role: Primary Care Nurse Name: Serena Allen RN Position: [facility] Onco RN Member Role: Primary Care Nurse Name: Maura Tsang RN Position: [facility] RN Member Role: Primary Care Nurse Care Team Related Persons Name: KAYCE PARK Address: [address] [place] [address] Name: SANTIAGO NAZARIO Address: [address] [place] [address]
--- OUTSIDE RECORDS SUMMARY | 2024-01-23 20:41 | XMS_ITS | Continuity of Care Document ---
Author Organization [facility] Ezra jeanna Address [address] [place] [address] [address] [place] [address]- Care Team Providers Care Casing Builder Name Role Phone Krishna Tapia MD Primary Care Physician [phone] Encounter [facility] Date(s): 05/16/23 - 06/15/23 [facility] [address] [place], [place] [address] Attending Physician: Admtr, ArJese Admitting Physician: Admtr, Ar8 Referring Physician: Admtr, [...] Refills, Maintenance, 06/22/22 6:51:00 EDT, Capsule, [facility], Partial fill [...] 8:44:00 EST, Route to Pharmacy Electronically, [facility] 3, Partial fill [...] EVERY DAY, # 180 tablet, 1 Refills, [facility] STORE [id number], 173,cm, 01/24/22 16:16:00 EDT, Height, 91.1, kg, [...] 11/07/22 16:29:00 EDT, Route to Pharmacy Electronically, [facility], Partial fill upon patient request if [...] MRI Safety Implantable Status Assigning Authority Unknown [id number] Unknown Unknown 09/26/25 Unknown Unknown Active Unknown [...] Care Nurse Name: Janie Kunz RN Position: [facility] RN Member Role: Primary Care Nurse Name: Krishna Tapia MD Position: [facility] Outreach Member Role: PCP Address: Address: [address] [place] [address] [place] [address]- Name: Miguelangel Cancino MD Position: [facility] Renal MD Member Role: Lifetime Consulting Physician Address: Address: [address] [place] [address], [address] [facility] [place] [address]- Name: Lavonne Mckenzie RN Position: [facility] RN Member Role: Primary Care Nurse Name: Filomena Austin RN Position: S RN Member Role: Primary Care Nurse Name: Faby Guido RN Position: [facility] RN Member Role: Primary Care Nurse Name: Maddy Skelton Position: S RN Member Role: Primary Care Nurse Name: Elise Yao LPN Position: S RN Member Role: Primary Care Nurse Name: Barak Shaw DO Position: [facility] Renal MD Member Role: Lifetime Consulting Physician Address: Address: [address] [place] [address] [address] [facility] [place] [address]- Name: Tayla Fine Position: [facility] Outreach Member Role: Lifetime Consulting Physician Name: Niki Montes RN Position: [facility] RN Member Role: Primary Care Nurse Name: Stella [place]houn RN Position: S RN Member Role: Primary Care Nurse Name: Wes Lezama Position: [facility] Associate Professional Member Role: Lifetime Consulting Provider Address: Address: [address] [place] [address]- Name: Kinjal Macias RN Position: [facility] RN Member Role: Primary Care Nurse Name: Estephania Pizano RN Position: [facility] ED RN W/OE and Tasks Member Role: Primary Care Nurse Name: Zita Barrow RN Position: [facility] SN RN Member Role: Primary Care Nurse Name: Alexis Brooke MD Position: [facility] Renal MD Member Role: Lifetime Consulting Physician Address: Address: [address] [place] [address] [address] [facility] [place] [address]- Name: Chantelle Villareal RN Position: [facility] RN Member Role: Primary Care Nurse Name: Brisa Michaels RN Position: [facility] RN Member Role: Primary Care Nurse Name: London Chau RN Position: [facility] RN Member Role: Primary Care Nurse Name: Ana Schafer RN Position: [facility] RN Member Role: Primary Care Nurse Name: Liz Aguilera RN Position: [facility] Outreach Member Role: Lifetime Consulting Physician Name: Sudhir Chan Position: [facility] Outreach Member Role: Lifetime Consulting Physician Name: Monique Guzmán RN Position: [facility] RN Member Role: Primary Care Nurse Name: Roselia Crain RN Position: [facility] RN Member Role: Primary Care Nurse Name: Jorge Crews RN Position: [facility] RN Member Role: Primary Care Nurse Address: Address: [address] [place] [address]- Name: Marcelo Joy MD Position: [facility] Renal MD Member Role: Lifetime Consulting Physician Address: Address: [address] [place] [address] [facility] [place] [address]- Name: Nell Copeland RN Position: [facility] RN Member Role: Primary Care Nurse Name: Star Hagen RN Position: [facility] RN Member Role: Primary Care Nurse Name: Odalis Roy RN Position: [facility] SN RN Member Role: Primary Care Nurse Name: Merline Carlson RN Position: [facility] RN Member Role: Primary Care Nurse Name: Nupur Black RN Position: [facility] RN Member Role: Primary Care Nurse Name: Serena Allen RN Position: [facility] Onco RN Member Role: Primary Care Nurse Name: Maura Tsang RN Position: [facility] RN Member Role: Primary Care Nurse Care Team Related Persons Name: KAYCE PARK Address: [address] [place] [address] Name: SANTIAGO NAZARIO Address: [address] [address]
--- OUTSIDE RECORDS SUMMARY | 2024-01-23 20:41 | XMS_ITS | Continuity of Care Document ---
Author Organization [facility] Address [address] [place] [address]- Care Team Providers Care Rehabilitation Services Director Name Role Phone Krishna Tapia MD Primary Care Physician Encounter [facility] Date(s): 05/28/23 - 06/27/23 [facility] [address] [place], [place] [address] Attending Physician: Admtr, Kyler Admitting Physician: AdmtrKyler Referring Physician: Admtr, Ar8 [...] 0 Refills, Maintenance, 06/22/22 6:51:00 EDT, Capsule, [facility], Partial fill upon patient request [...] 08/29/22 8:44:00 EST, Route to Pharmacy Electronically, [facility], Partial fill upon patient [...] DAY, # 180 tablet, 1 Refills, [facility] STORE [id number], 173,cm, 01/24/22 16:16:00 EDT, Height, 91.1, kg, [...] 11/07/22 16:29:00 EDT, Route to Pharmacy Electronically, [facility], Partial fill upon [...] 4 Refills, Maintenance, 06/24/23 12:07:00 EDT, Tablet, [facility], Partial fill upon patient request if [...] MRI Safety Implantable Status Assigning Authority Unknown [id number] Unknown Unknown 09/26/25 Unknown Unknown Active Unknown Patient Care team information Care Team Personnel Name: Wild Santos RN Position: [facility] RN Member Role: Primary Care Nurse Name: Lucy Garcia RN Position: [facility] RN Member Role: Primary Care Nurse Name: Julianna Mazariegos RN Position: [facility] RN Member Role: Primary Care Nurse Name: Simin Rosario RN Position: [facility] RN Member Role: Primary Care Nurse Name: Janie Kunz RN Position: [facility] RN Member Role: Primary Care Nurse Name: Krishna Tapia MD Position: [facility] Outreach Member Role: PCP Address: Address: [address] Krishna Tapia MD [place], [place] - [place] Name: Miguelangel Cancino MD Position: [facility] Renal MD Member Role: Lifetime Consulting Physician Address: Address: [address] [place] [address] [address] [facility] [place], [place] - [place] Name: Lavonne Mckenzie RN Position: [facility] RN Member Role: Primary Care Nurse Name: Filomena Austin RN Position: S RN Member Role: Primary Care Nurse Name: Faby Guido RN Position: S RN Member Role: Primary Care Nurse Name: Maddy Skelton Position: [facility] RN Member Role: Primary Care Nurse Name: Elise Yao LPN Position: [facility] RN Member Role: Primary Care Nurse Name: Barak Shaw DO Position: [facility] Renal MD Member Role: Lifetime Consulting Physician Address: Address: [address] [place] [address] [address] [facility] [place] [address]- Name: Tayla Fine Position: [facility] Outreach Member Role: Lifetime Consulting Physician Name: Niki Montes RN Position: [facility] RN Member Role: Primary Care Nurse Name: Stella [place] RN Position: [facility] RN Member Role: Primary Care Nurse Name: Wes Lezama Position: [facility] Associate Professional Member Role: Lifetime Consulting Provider Address: Address: [address] [place] [address]- Name: Kinjal Macias RN Position: [facility] RN Member Role: Primary Care Nurse Name: Estephania Pizano RN Position: [facility] ED RN W/OE and Tasks Member Role: Primary Care Nurse Name: Zita Barrow RN Position: [facility] SN RN Member Role: Primary Care Nurse Name: Alexis Brooke MD Position: [facility] Renal MD Member Role: Lifetime Consulting Physician Address: Address: [address] [place] [address] [address] [facility] [place] [address]- Name: Chantelle Villareal RN Position: [facility] RN Member Role: Primary Care Nurse Name: Brisa Michaels RN Position: [facility] RN Member Role: Primary Care Nurse Name: London Chau RN Position: [facility] RN Member Role: Primary Care Nurse Name: Ana Schafer RN Position: S RN Member Role: Primary Care Nurse Name: Liz Aguilera RN Position: [facility] Outreach Member Role: Lifetime Consulting Physician Name: Sudhir Chan Position: [facility] Outreach Member Role: Lifetime Consulting Physician Name: Roselia Crain RN Position: [facility] RN Member Role: Primary Care Nurse Name: Jorge Crews RN Position: [facility] RN Member Role: Primary Care Nurse Address: Address: [address] [place] [address] Name: Marcelo Joy MD Position: [facility] Renal MD Member Role: Lifetime Consulting Physician Address: Address: [address] [place] [address] [facility] [place] [address]- Name: Nell Copeland RN Position: [facility] RN Member Role: Primary Care Nurse Name: Star Hagen RN Position: [facility] RN Member Role: Primary Care Nurse Name: Odalis Roy RN Position: [facility] SN RN Member Role: Primary Care Nurse Name: Merline Carlson RN Position: [facility] RN Member Role: Primary Care Nurse Name: Nupur Black RN Position: [facility] RN Member Role: Primary Care Nurse Name: Serena Allen RN Position: [facility] Onco RN Member Role: Primary Care Nurse Name: Maura Tsang RN Position: [facility] RN Member Role: Primary Care Nurse Care Team Related Persons Name: KAYCE PARK Address: [address] [place] [address] Name: SANTIAGO NAZARIO Address: [address] [place] [address]
--- OUTSIDE RECORDS SUMMARY | 2024-01-23 20:41 | XMS_ITS | Continuity of Care Document ---
Author Organization [facility] Address [address] [address]- Care Team Providers Care Automatic I Threading Machine Feeder Name Role Phone Krishna Tapia MD Primary Care Physician Encounter [facility] Date(s): 04/17/23 - 08/15/23 [facility] [address] [place] [id number] Attending Physician: Dawit Taylor MD Admitting Physician: Dawit Taylor MD Referring Physician: Krishna Tapia MD Allergies, [...] Refills, Maintenance, 06/22/22 6:51:00 EDT, Capsule, [facility], Partial fill upon [...] 8:44:00 EST, Route to Pharmacy Electronically, [facility] 3, Partial fill upon [...] DAY, # 180 tablet, 1 Refills, [facility] 91410, 173,cm, 01/24/22 16:16:00 EDT, Height, 91.1, kg, [...] 11/07/22 16:29:00 EDT, Route to Pharmacy Electronically, [facility], Partial fill upon patient request if [...] 4 Refills, Maintenance, 06/24/23 12:07:00 EDT, Tablet, [facility], Partial fill upon patient request if [...] MRI Safety Implantable Status Assigning Authority Unknown [id number] Unknown Unknown 09/26/25 Unknown Unknown Active Unknown Patient Care team information Care Team Personnel Name: Wild Santos RN Position: [facility] RN Member Role: Primary Care Nurse Name: Lucy Garcia RN Position: [facility] RN Member Role: Primary Care Nurse Name: Julianna Mazariegos RN Position: [facility] RN Member Role: Primary Care Nurse Name: Simin Rosario RN Position: [facility] RN Member Role: Primary Care Nurse Name: Janie Kunz RN Position: S RN Member Role: Primary Care Nurse Name: Krishna Tapia MD Position: [facility] Outreach Member Role: PCP Address: Address: [address] [place] [address] Krishna Tapia MD [place], [place] - [place] Name: Miguelangel Cancino MD Position: [facility] Renal MD Member Role: Lifetime Consulting Physician Address: Address: [address] [place] [address] [address] [facility] [place], [place] Name: Lavonne Mckenzie RN Position: [facility] RN Member Role: Primary Care Nurse [...] DO Position: [facility] Renal MD Member Role: Lifetime Consulting Physician Address: Address: [address] [place] [address] [address] [facility] [place] [address]- Name: Tayla Fine Position: [facility] Outreach Member Role: Lifetime Consulting Physician Name: Niki Montes RN Position: [facility] RN Member Role: Primary Care Nurse Name: Stella Calhoun RN Position: [facility] RN Member Role: Primary Care Nurse Name: Wes Lezama Position: [facility] Associate Professional Member Role: Lifetime Consulting Provider Address: Address: [address] [place] [address]- Name: Kinjal Macias RN Position: [facility] RN Member Role: Primary Care Nurse Name: Estephania Pizano RN Position: [facility] ED RN W/OE and Tasks Member Role: Primary Care Nurse Name: Zita Barrow RN Position: [facility] SN RN Member Role: Primary Care Nurse Name: Alexis Brooke MD Position: [facility] Renal MD Member Role: Lifetime Consulting Physician Address: Address: [address] [place] [address] [address] [facility] [place] [place] [address]- Name: Chantelle Villareal RN Position: [facility] RN Member Role: Primary Care Nurse Name: Brisa Michaels RN Position: S RN Member Role: Primary Care Nurse Name: London Chau RN Position: S RN Member Role: Primary Care Nurse Name: Ana Schafer RN Position: [facility] RN Member Role: Primary Care Nurse Name: Liz Aguilera RN Position: [facility] Outreach Member Role: Lifetime Consulting Physician Name: Sudhir Chan Position: [facility] Outreach Member Role: Lifetime Consulting Physician Name: Roselia Crain RN Position: [facility] RN Member Role: Primary Care Nurse Name: Jorge Crews RN Position: [facility] RN Member Role: Primary Care Nurse Address: Address: [address] [place] [address] Name: Marcelo Joy MD Position: [facility] Renal MD Member Role: Lifetime Consulting Physician Address: Address: [address] [place] [address] [facility] [place] [address]- Name: Nell Copeland RN Position: [facility] RN Member Role: Primary Care Nurse Name: Star Hagen RN Position: [facility] RN Member Role: Primary Care Nurse Name: Odalis Roy RN Position: [facility] SN RN Member Role: Primary Care Nurse Name: Merline Carlson RN Position: [facility] RN Member Role: Primary Care Nurse Name: Nupur Black RN Position: [facility] RN Member Role: Primary Care Nurse Name: Serena Allen RN Position: [facility] Onco RN Member Role: Primary Care Nurse Name: Maura Tsang RN Position: [facility] RN Member Role: Primary Care Nurse Care Team Related Persons Name: KAYCE PARK Address: [address] [place] [address] Name: SANTIAGO NAZARIO Address: [address] [place] [address]
--- OUTSIDE RECORDS SUMMARY | 2024-01-23 20:41 | XMS_ITS | Continuity of Care Document ---
Author Organization [facility] Address [address] [address]- Care Team Providers Care Jewel Blocker And Sawyer Name Role Phone Krishna Tapia MD Primary Care Physician Encounter [facility] Date(s): 07/16/23 - 08/15/23 [facility] [address] [place] [id number] Attending Physician: Kyler Ny Admitting Physician: Admtr, Kyler Referring Physician: Admtr, [...] 0 Refills, Maintenance, 06/22/22 6:51:00 EDT, Capsule, [facility] 3, Partial fill upon patient [...] 08/29/22 8:44:00 EST, Route to Pharmacy Electronically, [facility] 3, Partial fill upon patient [...] 1 Refills, [facility], 173,cm, 01/24/22 16:16:00 EDT, Height, 91.1, kg, [...] 11/07/22 16:29:00 EDT, Route to Pharmacy Electronically, [facility], Partial fill upon patient request if [...] 4 Refills, Maintenance, 06/24/23 12:07:00 EDT, Tablet, [facility], Partial fill upon patient request if [...] MRI Safety Implantable Status Assigning Authority Unknown [id number] Unknown Unknown 09/26/25 Unknown Unknown Active Unknown Patient Care team information Care Team Personnel Name: Wild Santos RN Position: [facility] RN Member Role: Primary Care Nurse Name: Lucy Garcia RN Position: [facility] RN Member Role: Primary Care Nurse Name: Julianna Mazariegos RN Position: [facility] RN Member Role: Primary Care Nurse Name: Simin Rosario RN Position: [facility] RN Member Role: Primary Care Nurse Name: Janie Kunz RN Position: S RN Member Role: Primary Care Nurse Name: Krishna Tapia MD Position: [facility] Outreach Member Role: PCP Address: Address: [address] [place] [address] Krishna Tapia MD [place], [place] - [place] Name: Miguelangel Cancino MD Position: [facility] Renal MD Member Role: Lifetime Consulting Physician Address: Address: [address] [place] [address] [address] [facility] [place], [place] - [place] Name: Lavonne Mckenzie RN Position: [facility] RN [...] Role: Lifetime Consulting Physician Address: Address: [address] [place] [address] [address] [facility] [place] [address]- Name: Tayla Fine Position: [facility] Outreach Member Role: Lifetime Consulting Physician Name: Niki Montes RN Position: [facility] RN Member Role: Primary Care Nurse Name: Stella [place] RN Position: [facility] RN Member Role: Primary Care Nurse Name: Wes Lezama Position: [facility] Associate Professional Member Role: Lifetime Consulting Provider Address: Address: [address] [place] [address]- Name: Kinjal Macias RN Position: [facility] RN Member Role: Primary Care Nurse Name: Estephania Pizano RN Position: [facility] ED RN W/OE and Tasks Member Role: Primary Care Nurse Name: Zita Barrow RN Position: [facility] SN RN Member Role: Primary Care Nurse Name: Alexis Brooke MD Position: [facility] Renal MD Member Role: Lifetime Consulting Physician Address: Address: [address] [place] [address] [address] [facility] [place] [place] [address]- Name: Chantelle Villareal RN [facility] Consulting Physician Name: Roselia Crain RN Position: [facility] RN Member Role: Primary Care Nurse Name: Jorge Crews RN Position: [facility] RN Member Role: Primary Care Nurse Address: Address: [address] [place] [address] Name: Marcelo Joy MD Position: [facility] Renal MD Member Role: Lifetime Consulting Physician Address: Address: [address] [place] [address] [facility] [place] [address]- Name: Nell Copeland RN Position: [facility] [...] Persons Name: KAYCE PARK Address: [address] [place] [address] Name: SANTIAGO NAZARIO Address: [address] [place] [address]
--- OUTSIDE RECORDS SUMMARY | 2024-01-23 20:41 | XMS_ITS | Continuity of Care Document ---
Author Organization [facility] Address [address] [address]- Care Team Providers Care Lapping Machine Set Up Operator Name Role Phone Krishna Tapia MD Primary Care Physician Encounter [facility] Date(s): 07/11/23 - 08/10/23 [facility] [address] [address] Allergies, Adverse Reactions, Alerts Substance Reaction Severity [...] 0 Refills, Maintenance, 06/22/22 6:51:00 EDT, Capsule, [facility], Partial fill upon patient [...] 08/29/22 8:44:00 EST, Route to Pharmacy Electronically, [facility], Partial fill upon patient [...] EVERY DAY, # 180 tablet, 1 Refills, [id number], 173,cm, 01/24/22 16:16:00 EDT, Height, 91.1, kg, [...] 11/07/22 16:29:00 EDT, Route to Pharmacy Electronically, [facility], Partial fill upon patient request if [...] 4 Refills, Maintenance, 06/24/23 12:07:00 EDT, Tablet, [facility], Partial fill upon patient request if [...] MRI Safety Implantable Status Assigning Authority Unknown [id number] Unknown Unknown 09/26/25 Unknown Unknown Active Unknown Patient Care team information Care Team Personnel Name: Wild Santos RN Position: [facility] RN Member Role: Primary Care Nurse Name: Lucy Garcia RN Position: [facility] RN Member Role: Primary Care Nurse Name: Julianna Mazariegos RN Position: [facility] RN Member Role: Primary Care Nurse Name: Simin Rosario RN Position: [facility] RN Member Role: Primary Care Nurse Name: Janie Kunz RN Position: [facility] RN Member Role: Primary Care Nurse Name: Krishna Tapia MD Position: [facility] Outreach Member Role: PCP Address: Address: [address] [place] [address] Kirshna Tapia MD [place], [place] [address] Name: Miguelangel Cancino MD Position: [facility] Renal MD Member Role: Lifetime Consulting Physician Address: Address: [address] [place] [address] [address] [place] [address]- [place] Name: Lavonne Mckenzie RN Position: [facility] RN Member Role: Primary Care Nurse Name: Filomena Austin RN Position: [facility] RN Member Role: Primary Care Nurse Name: Faby Giudo RN Position: S RN Member Role: Primary Care Nurse Name: Maddy Skelton Position: S RN Member Role: Primary Care Nurse Name: Elise Yao LPN Position: [facility] RN Member Role: Primary Care Nurse Name: Barak Shaw DO Position: [facility] Renal MD Member Role: Lifetime Consulting Physician Address: Address: [address] [place] [address] [address] [facility] [place] [address]- Name: Tayla Fine Position: [facility] Outreach Member Role: Lifetime Consulting Physician Name: Niki Montes RN Position: [facility] RN Member Role: Primary Care Nurse Name: Stella Calhoun RN Position: [facility] RN Member Role: Primary Care Nurse Name: Wes Lezama Position: [facility] Associate Professional Member Role: Lifetime Consulting Provider Address: Address: [address] [place] [address]- Name: Kinjal Macias RN Position: [facility] RN Member Role: Primary Care Nurse Name: Estephania Pizano RN Position: [facility] ED RN W/OE and Tasks Member Role: Primary Care Nurse Name: Zita Barrow RN Position: [facility] SN RN Member Role: Primary Care Nurse Name: Alexis Brooke MD Position: [facility] Renal MD Member Role: Lifetime Consulting Physician Address: Address: [address] [place] [address] [address] [facility] [place] [address]- Name: Chantelle Villareal RN Position: [facility] RN Member Role: Primary Care Nurse Name: Brisa Michaels RN Position: [facility] RN Member Role: Primary Care Nurse Name: London Chau RN Position: [facility] RN Member Role: Primary Care Nurse Name: Ana Schafer RN Position: [facility] RN Member Role: Primary Care Nurse Name: Liz Aguilera RN Position: [facility] Outreach Member Role: Lifetime Consulting Physician Name: Sudhir Chan Position: [facility] Outreach Member Role: Lifetime Consulting Physician Name: Roselia Crain RN Position: S RN Member Role: Primary Care Nurse Name: Jorge Crews RN Position: [facility] RN Member Role: Primary Care Nurse Address: Address: [address] [place] [address] Name: Marcelo Joy MD Position: [facility] Renal MD Member Role: Lifetime Consulting Physician Address: Address: [address] [place] [address] [facility] [place] [address]- Name: Nell Copeland RN Position: [facility] RN Member Role: Primary Care Nurse Name: Star Hagen RN Position: [facility] RN Member Role: Primary Care Nurse Name: Odalis Roy RN Position: [facility] SN RN Member Role: Primary Care Nurse Name: Merline Carlson RN Position: [facility] RN Member Role: Primary Care Nurse Name: Nupur Black RN Position: [facility] RN Member Role: Primary Care Nurse Name: Serena Allen RN Position: [facility] Onco RN Member Role: Primary Care Nurse Name: Maura Tsang RN Position: [facility] RN Member Role: Primary Care Nurse Care Team Related Persons Name: KAYCE PARK Address: [address] [place] [address] Name: SANTIAGO NAZARIO Address: home [address] [place] [address]
--- OUTSIDE RECORDS SUMMARY | 2024-01-23 20:42 | XMS_ITS | Continuity of Care Document ---
Author Organization [facility] Address [address] [place] [address]- Care Team Providers Care Juice Scaleman Name Role Phone Krishna Tapia MD Primary Care Physician [facility] [place] 03/20/23 - 07/18/23 [facility] [address] [place], [place] [address] Attending Physician: Anabel GREENWOOD, Amanda Chapin Admitting Physician: Anabel GREENWOOD, Amanda Chapin Allergies, Adverse Reactions, Alerts Substance Reaction Severity [...] Refills, Maintenance, 06/22/22 6:51:00 EDT, Capsule, [facility], Partial fill upon patient request [...] Pharmacy Electronically, [facility], Partial fill upon patient [...] EVERY DAY, # 180 tablet, 1 Refills, [facility], 173,cm, 01/24/22 16:16:00 EDT, Height, 91.1, kg, [...] 11/07/22 16:29:00 EDT, Route to Pharmacy Electronically, [facility], Partial fill upon patient request if [...] 4 Refills, Maintenance, 06/24/23 12:07:00 EDT, Tablet, [facility], Partial fill upon patient request if [...] MRI Safety Implantable Status Assigning Authority Unknown [id number] Unknown Unknown 09/26/25 Unknown Unknown Active Unknown Patient Care team information Care Team Personnel Name: Wild Santos RN Position: [facility] RN Member Role: Primary Care Nurse Name: Lucy Garcia RN Position: [facility] RN Member Role: Primary Care Nurse Name: Julianna Mazariegos RN Position: [facility] RN Member Role: Primary Care Nurse Name: Simin Rosario RN Position: [facility] RN Member Role: Primary Care Nurse Name: Janie Kunz RN Position: [facility] RN Member Role: Primary Care Nurse Name: Krishna Tapia MD Position: [facility] Outreach Member Role: PCP Address: Address: [address] Krishna Tapia MD [place], [place] - [place] Name: Miguelangel Cancino MD Position: [facility] Renal MD Member Role: Lifetime Consulting Physician Address: Address: [address] [place] [address] [address] [facility] [place], [place] - [place] Name: Lavonne Mckenzie RN Position: [facility] RN Member Role: Primary Care Nurse Name: Filomena Austin RN Position: S RN Member Role: Primary Care Nurse Name: Faby Guido RN Position: S RN Member Role: Primary Care Nurse Name: Maddy Skelton Position: S RN Member Role: Primary Care Nurse Name: Elise Yao LPN Position: S RN Member Role: Primary Care Nurse Name: Barak Shaw DO Position: [facility] Renal MD Member Role: Lifetime Consulting Physician Address: Address: [address] [place] [address] [address] [facility] [place] [address]- Name: Tayla Fine Position: [facility] Outreach Member Role: Lifetime Consulting Physician Name: Niki Montes RN Position: [facility] RN Member Role: Primary Care Nurse Name: Stella Calhoun RN Position: [facility] RN Member Role: Primary Care Nurse Name: Wes Lezama Position: [facility] Associate Professional Member Role: Lifetime Consulting Provider Address: Address: [address] [place] [address]- Name: Kinjal Macias RN Position: [facility] RN Member Role: Primary Care Nurse Name: Estephania Pizano RN Position: [facility] ED RN W/OE and Tasks Member Role: Primary Care Nurse Name: Zita Barrow RN Position: [facility] SN RN Member Role: Primary Care Nurse Name: Alexis Brooke MD Position: [facility] Renal MD Member Role: Lifetime Consulting Physician Address: Address: [address] [place] [address] [address] [facility] [place] [address]- Name: Chantelle Villareal RN Position: [facility] RN Member Role: Primary Care Nurse Name: Brisa Michaels RN Position: [facility] RN Member Role: Primary Care Nurse Name: London Chau RN Position: S RN Member Role: Primary Care Nurse Name: Ana Schafer RN Position: [facility] RN Member Role: Primary Care Nurse Name: Liz Aguilera RN Position: [facility] Outreach Member Role: Lifetime Consulting Physician Name: Sudhir Chan Position: [facility] Outreach Member Role: Lifetime Consulting Physician Name: Roselia Crain RN Position: [facility] RN Member Role: Primary Care Nurse Name: Jorge Crews RN Position: S RN Member Role: Primary Care Nurse Address: Address: [address] [place] [address] Name: Marcelo Joy MD Position: [facility] Renal MD Member Role: Lifetime Consulting Physician Address: Address: [address] [place] [address] [facility] [place] [address]- Name: Nell Copeland RN Position: [facility] RN Member Role: Primary Care Nurse Name: Star Hagen RN Position: [facility] RN Member Role: Primary Care Nurse Name: Odalis Roy RN Position: [facility] SN RN Member Role: Primary Care Nurse Name: Merline Carlson RN Position: [facility] RN Member Role: Primary Care Nurse Name: Nupur Black RN Position: [facility] RN Member Role: Primary Care Nurse Name: Serena Allen RN Position: [facility] Onco RN Member Role: Primary Care Nurse Name: Maura Tsang RN Position: [facility] RN Member Role: Primary Care Nurse Care Team Related Persons Name: KAYCE PARK Address: [address] [place] [address] Name: ARAVIND SANTIAGO Address: [address] [place] [address]
--- OUTSIDE RECORDS SUMMARY | 2024-01-23 20:42 | XMS_ITS | Continuity of Care Document ---
Author Organization [facility] ter Address [address] [place] [id number]- Care Team Providers Care Fiscal Specialist Name Role Phone Krishna Tapia MD Primary Care Physician [phone] Encounter [facility] Date(s): 12/25/23 - 12/31/[address] [id number]- Encounter Diagnosis Hyperkalemia(Final) - 12/25/23 Hypotension(Final) - 12/25/23 Diarrhea(Final) - 12/25/23 ESRD on dialysis(Final) - 12/25/23 Type 1 diabetes(Final) - 12/25/23 Discharge Disposition: A-Transfer VNA/Home Health Attending Physician: Patricia Ruth MD Admitting Physician: Yvonne Pedro MD Referring Physician: Not on Staff, Referring [...] 12/31/23 15:18:00 EDT, Route to Pharmacy Electronically, [facility], this is a dose change, please cancel prescription for furosemide 80mg, 173, cm, 050... Start Date: 12/31/23 Stop Date: 01/30/24 Status: Ordered gabapentin 300 mg oral capsule 300 mg, Capsule, By Mouth, 12/31/23 9:00:00 EDT Start Date: 12/31/23 Stop Date: 12/31/23 Status: Completed gabapentin 300 mg oral capsule 300 mg, 1, capsule, By Mouth, 3 times a day, # 90 capsule, Refills 0, Tot. Refills 0, Maintenance, 08/29/22 8:44:00 EST, Route to Pharmacy Electronically, [facility], Partial fill upon patient [...] 12/31/23 15:17:00 EDT, Route to Pharmacy Electronically, [facility], This is a dose change, please cancel prescription for metoprolol 50mg, 173, cm, 05/0... Start Date: 12/31/23 Stop Date: 01/30/24 Status: Ordered metoprolol 50 mg oral tablet, extended release 50 mg, XL Tablet, By Mouth, 12/31/23 9:18:00 EDT Start Date: 12/31/23 Stop Date: 12/31/23 Status: Completed Nephro-Rocio oral tablet 1 tablet, By Mouth, [...] 1 Refills, Maintenance, 12/31/23 13:15:00 EDT, Capsule, [facility], Partial fill upon patient request [...] Range]: 1 2 3 Height 173 cm (12/31/23 2:33 PM) 173 cm (12/31/23 11:31 AM) 173 cm (12/31/23 5:54 AM) Weight 97.7 kg (12/26/23 1:05 AM) 91.7 kg (12/26/23 1:02 AM) Oxygen Saturation [94-100 %] 99 % (12/31/23 2:33 PM) 96 % (12/31/23 11:31 AM) 100 % (12/31/23 5:54 AM) Pulse Rate [55-90 bpm] 72 bpm (12/31/23 2:33 PM) 71 bpm (12/31/23 11:31 AM) 70 bpm (12/31/23 9:48 AM) Body Mass Index [18.5-24.99 kg/m2] 32.64 kg/m2 *>HHI* (12/26/23 1:05 AM) Blood Pressure [90-138/55-84 mm Hg] 91/46mm Hg (12/31/23 2:33 PM) 96/55mm Hg (12/31/23 11:31 AM) 117/63mm Hg (12/31/23 9:48 AM) Respiratory Rate [16-30 br/min] 18 br/min (12/31/23 2:33 PM) 18 br/min (12/31/23 11:31 AM) 20 br/min (12/31/23 9:48 AM) Temperature [96.8-100.4 DegF] 98.4 DegF (12/31/23 2:33 PM) 97.8 DegF (12/31/23 11:31 AM) 98.3 DegF (12/31/23 5:54 AM) Mode of Delivery (Oxygen) Room air (12/31/23 2:33 PM) Room air (12/31/23 11:31 AM) Room air (12/31/23 5:54 AM) Blood pressure sites Arm, right (12/31/23 2:33 PM) Arm, right (12/31/23 11:31 AM) Arm, right (12/31/23 5:54 AM) Temperature Route Oral (12/31/23 2:33 PM) Oral (12/31/23 11:31 AM) Oral (12/31/23 5:54 AM) Dry Weight 91.7 kg (12/26/23 1:05 AM) 91.7 kg (12/26/23 1:02 AM) Weight Obtained Via Bed scale (12/26/23 1:05 AM) Bed scale (12/26/23 1:02 AM) Dry Weight Obtained Via Bed scale (12/26/23 1:02 AM) Social History Social History Type Response Smoking Status Never smoker entered on: 01/06/17 Sex Male Implantable Device List Procedure Provider Procedure Date Device Type Site Creation Arteriovenous Graft Upper Extre Josef Adams MD 03/12/21 Unknown Arm Left Device Identifier Serial Number Lot or Batch Number Manufacturing Date Expiration Date Distinct Identification Code MRI Safety Implantable Status Assigning Authority Unknown [id number] Unknown Unknown 09/26/25 Unknown Unknown Active Unknown Admission evaluation note * Mayela GREENWOOD, Ahmed A: PERFORM, MODIFY Event Display: Admission Note Authored Date: Patient: ??RONI GARZA ? Age:??53 Years?Sex:??Male?:??1970?? Chief Complaint/Reason for Consultation 53-year-old male presents from dialysis with hypotension.?? K6.4.?? Received insulin and calcium.??Repeat lites pending.?? Blood pressure improved with fluids History of Present Illness 53-year-old male patient with past medical history of coronary artery disease, ischemic cardiomyopathy, HFrEF (ejection fraction 35 to 40%), end-stage renal disease on hemodialysis Friday, ,and Friday, historyof ??prior failed donor kidney transplantation in 2010, diabetes mellitus type 1, severe hypertension, dyslipidemia, history of prior DVT s/p IVC filter placement who presents to the emergency department for evaluation of hypotension.?? Patient had his scheduled dialysis session, he developed to improve hypertension, required midodrine intubation went home however patient has been having lightheaded, he had to lower himself to the floor.?? He denies head trauma or l oss of consciousness.?? Visiting nurse checked his blood pressure at this evening and found his systolic blood pressure in 60s and 70s therefore, she called 911.?? Upon presentation to the emergency department, he was hemodynamically stable with pressure 109/71, afebrile, 20 saturation at 100% on room air.?? Initial blood work was notable for chronic anemia with hemoglobin of 9.8, hyperkalemia with potassium of 6.0, creatinine 6.6 which is consistent with end-stage renal disease.?patient did receive calcium gluconate, insulin/dextrose and 1 pack of Lokelma.?? He did also receive half liter bolus of LR and admitted under medicine.?? Admission, he was incontinent without incident he denies any complaints at present. Review of Systems A full review of systems was completed and is otherwise negative except as mentioned in history of present illness. Objective ? Vital Signs?? Temperature: 97.8 DegF (12/25/23 19:21:00) Temperature Route: Oral (12/25/23 19:21:00) Pulse Rate: 70 bpm (12/25/23 20:45:00) Respiratory Rate: 16 br/min (12/25/23 20:45:00) Systolic Blood Pressure: 109 mm Hg (12/25/23 20:45:00) Diastolic Blood Pressure: 71 mm Hg (12/25/23 20:45:00) Blood pressure sites: Arm, right (12/25/23 20:45:00) Mean Arterial Pressure: 81 mm Hg (12/25/23 19:21:00) Pulse Pressure: 38 mm Hg (12/25/23 20:45:00) Oxygen Saturation: 100 % (12/25/23 20:45:00) Mode of Delivery (Oxygen): Room air (12/25/23 20:45:00) Early Warning Score: 3 (12/25/23 22:10:09) ? Intake/Output? No Data Available ? Physical Exam General Appearance: The patient is in NAD. Head: atraumatic EENT: MMM, no scleral icterus Cardiovascular: RRR no MRG Respiratory:?? Breath sounds clear to auscultation bilaterally. No wheezing. room air. GI: Soft. Nontender and nondistended. Normal bowel sounds present throughout abdomen. MS:?? No edema or erythema in the lower extremities. Peripheral sensation intact. Skin: warm, dry, no rashes Neuro:?? No slurred speech.?? Patient seen moving their upper and lower extremities independently. Psych: calm Lines: Peripheral IV in place. Assessment/Plan Diagnoses BPH (benign prostatic hyperplasia) ??(N40.0) Coronary artery disease ??(I25.10) Diarrhea ??(R19.7) Dyslipidemia ??(E78.5) ESRD on dialysis ??(N18.6) Failed kidney transplant ??(T86.12) HFrEF (heart failure with reduced ejection fraction) ??(I50.20) Hyperkalemia ??(E87.5) Hypotension ??(I95.9) Ischemic cardiomyopathy ??(I25.5) Type 1 diabetes ??(E10.9) ?? Hypotension (I95.9):?? Patient developed hypotension,??associated with lightheadedness??was brought to emergency??department.?? He also developed hypotension??during his dialysis session earlier today. He did receive midodrine??during his dialysis session. Blood pressure was stable upon presentation to emergency department. He did also receive??half a liter of fluid. Hypotension is likely secondary to??dialysis??in the setting of??strong vasodilator medications ??Entresto Continue to monitor. Hold Entresto??given hyperkalemia and hypotension. midodrine as needed Entresto dose may be reduced ? Hyperkalemia (E87.5):??Potassium of??6.0. He received calcium gluconate, insulin/dextrose, 1 packet of Lokelma. Continue to monitor electrolytes. Lokelma as needed. ?? ESRD on dialysis (N18.6):?? Patient with end-stage renal disease??on hemodialysis??Friday, , and Friday with prior failed donor kidney transplantation in 2010 Nephrology consultation. Continue sevelamer and calcitriol. ? Type 1 diabetes (E10.9):?? Type 1 diabetes mellitus, on??insulin pump. Chain of insulin pump. Switch to??basal bolus. Continue to monitor??cgcuh-tr-eigf glucose??with insulin sliding scale coverage. BIDS consultation in the morning ? Coronary artery disease (I25.10):??. Ischemic cardiomyopathy (I25.5):??. HFrEF (heart failure with reduced ejection fraction) (I50.20):??History of??multivessel coronary artery disease??complicated by??ischemic cardiomyopathy with??HFrEF. Chest pain-free. He is currently euvolemic.?? Continue home dose Lasix. Continue metoprolol succinate, aspirin, and??Lipitor. Hold Entresto??given significant hypotension and hyperkalemia. ? Failed kidney transplant (T86.12):??prior failed donor kidney transplantation in 2010 Continue tacrolimus??and prednisone ?? BPH (benign prostatic hyperplasia) (N40.0):??Continue Flomax. ?? Dyslipidemia (E78.5):??Continue atorvastatin ? VTE Prophylaxis:??Subcutaneous heparin ?VTE Prophylaxis Assessment:??VTE Prophylaxis Ordered ?? Code Status:??full code ?Order Code Status:??Code Status Ordered ?? Discharge Planning: Histories Allergies Allergies ?(Active and Proposed Allergies [...] races ? Past Medical History/Problem List Active Problems(10) CAD (coronary artery disease) Chronic kidney disease (CKD) Chronic systolic congestive heart failure Diabetes mellitus type 1 ESRD on dialysis Foot pain Hypertension Neuropathy Obese class I Transplanted kidney present ? Past Surgical History Kidney transplant right 2020; AV graft left arm; BIlateral trigger finer release suurgeries ? Social History Alcohol Details:??Use: Never. Employment/School Details:??Status: Employed. Exercise Details:??Self assessment: Fair condition. Home/Environment Details:??Living situation: Home/Independent. Substance Abuse Details:??Use: Never. Tobacco Details:??Never smoker Electronic Cigarette/Vaping Details:??Electronic Cigarette Use: Never. ? Family History No Positive Family History documented. ? Medications Home Medications Albuterol (albuterol 0.083% inhalation solution)?3?Milliliter?2.5?Milligram?Inhalation?Every 4 hours?as needed?Wheezing/Shortness of Breath?for 30?Days Aspirin (aspirin 81 mg oral delayed release tablet)?81?Milligram?1?tablet?By Mouth?Daily?for 30?Days Atorvastatin (atorvastatin 40 mg oral tablet)?1?tab(s)?40?Milligram?By Mouth?Daily Brimonidine Ophthalmic (brimonidine 0.2% ophthalmic solution)?1?Drops?Eyes, Both?2 times a day Calcitriol (calcitriol 0.5 mcg oral capsule)?3?capsule?1.5?Microgram?By Mouth?Every Friday, and Friday?for 30?Days Cyanocobalamin (cyanocobalamin 1000 mcg oral tablet)?1,000?Microgram?1?tablet?By Mouth?Daily Durable Medical Equipment (Compression Stockings)?See Instructions?surgical, knee length 20-30 mm Hg Fluticasone-Salmeterol (Advair Diskus 250 mcg-50 mcg inhalation powder)?1?puff(s)?Inhalation?2 times a day Folic Acid (folic acid 1 mg oral tablet)?1?Milligram?1?tablet?By Mouth?Daily Furosemide (furosemide 80 mg oral tablet)?80?Milligram?1?tablet?By Mouth?Daily Gabapentin (gabapentin 300 mg oral capsule)?300?Milligram?1?capsule?By Mouth?3 times a day?for 30?Days Insulin Lispro (Humalog 100 u/ml subcutaneous injection)?See Instructions?Subcutaneous InfusiON INSULIN PUMP Latanoprost Ophthalmic (Xalatan 0.005% solution)?1?Drops?Eyes, Both?Daily at bedtime Magnesium Oxide (magnesium oxide 400 mg oral tablet)?See Instructions?TAKE 2 TABLETS BY MOUTHEVERY DAY Melatonin (melatonin 3 mg oral tablet)?3?Milligram?By Mouth?Daily at bedtime?as needed?as needed for insomnia Metoprolol (metoprolol 50 mg oral tablet, extended release)?100?Milligram?2?tablet?By Mouth?Daily?for 90?Days Miscellaneous Rx (MECLIZINE 25 MG TABLET)?By Mouth?3 times a day Miscellaneous Rx (Please discontinue clopidpogrel 75 mg daily.)?See Instructions?See above Omeprazole (omeprazole 20 mg oral enteric coated capsule)?1?capsule?20?Milligram?By Mouth?Daily sacubitril-valsartan (sacubitril-valsartan 24 mg-26 mg oral tablet)?1?tab(s)?By Mouth?2times a day?for 90?Days Sevelamer (Renvela 800 mg oral tablet)?1?tab(s)?800?Milligram?By Mouth?3 times a day with meals sodium zirconium cyclosilicate (sodium zirconium cyclosilicate 10 g oral powder for reconstitution)?10?gram?By Mouth?Every Friday, Friday and Friday?dilute w/45 ml water, mix well, and drink immediately Tacrolimus (tacrolimus 0.5 mg oral capsule)?0.5?Milligram?By Mouth?Daily Tamsulosin (tamsulosin 0.4 mg oral capsule)?0.4?Milligram?1?capsule?By Mouth?Daily at bedtime ? Results Recent Labs BLOOD COUNT & DIFF WBC 6.8 k/mm3 ()?? 12/25/2023 18:30 RBC 3.10 m/mm3 (Low)?? 12/25/2023 18:30 Hgb 9.8 Gm/dL (Low)?? 12/25/2023 18:30 Hct 31.1 % (Low)?? 12/25/2023 18:30 MCV 100.3 femtoliters (High)?? 12/25/2023 18:30 MCH 31.6 pg ()?? 12/25/2023 18:30 MCHC 31.5 g/dL (Low)?? 12/25/2023 18:30 Platelet Count 167 k/mm3 ()?? 12/25/2023 18:30 RDW-SD 70.0 femtoliters (High)?? 12/25/2023 18:30 MPV 10.9 femtoliters ()?? 12/25/2023 18:30 Nucleated RBC (Automated) 0.0 #/100 WBC'S ()?? 12/25/2023 18:30 Abs. NRBC 0.0 k/mm3 ()?? 12/25/2023 18:30 Abs. Neut 4.6 k/mm3 ()?? 12/25/2023 18:30 Abs. Lymph 1.6 k/mm3 ()?? 12/25/2023 18:30 Abs. Medina 0.5 k/mm3 ()?? 12/25/2023 18:30 Abs. Eo 0.1 k/mm3 ()?? 12/25/2023 18:30 Abs. Baso 0.0 k/mm3 ()?? 12/25/2023 18:30 Neut % 67.6 % ()?? 12/25/2023 18:30 Lymph % 22.8 % ()?? 12/25/2023 18:30 Medina % 7.3 % ()?? 12/25/2023 18:30 Eos % 1.5 % ()?? 12/25/2023 18:30 Baso % 0.4 % ()?? 12/25/2023 18:30 Hemoglobin (POC) POC Cartridge 12.2 Gm/dL (Low)?? 12/25/2023 18:00 Hematocrit (POC) POC Cartridge 36 % (Low)?? 12/25/2023 18:00 Imm Gran 0.4 % ()?? 12/25/2023 18:30 Abs. Imm Gran 0.0 k/mm3 ()?? 12/25/2023 18:30 ?? BLOOD GAS pH Venous (POC) POC Cartridge 7.60 (High)?? 12/25/2023 18:00 pCO2 Venous (POC) POC Cartridge 30.1 mm Hg (Low)?? 12/25/2023 18:00 pO2 Venous (POC) POC Cartridge 23 mm Hg (Low)?? 12/25/2023 18:00 Est Bicarbonate (POC) POC Cartridge 29.4 mmol/L (High)?? 12/25/2023 18:00 % O2 Sat Venous (POC) POC Cartridge 54 ()?? 12/25/2023 18:00 Base Excess (POC) POC Cartridge 8 ()?? 12/25/2023 18:00 Specimen Type - Blood Gas VENOUS ()?? 12/25/2023 18:00 ?? CARDIAC Nt-Probnp 2241 pg/mL (High)?? 12/25/2023 18:30 High Sensitivity Troponin (HSTnT) 70 ng/L (Critical)?? 12/25/2023 20:40 ?? CHEM GENERAL Sodium 133 mmol/L ()?? 12/25/2023 18:30 Potassium 6.0 mmol/L (High)?? 12/25/2023 18:30 Chloride 93 mmol/L (Low)?? 12/25/2023 18:30 Bicarbonate Level 26 mmol/L ()?? 12/25/2023 18:30 Anion Gap 14 ()?? 12/25/2023 18:30 Sodium (POC) POC Cartridge 131 mmol/L (Low)?? 12/25/2023 18:00 Potassium (POC) POC Cartridge 6.4 mmol/L (Critical)?? 12/25/2023 18:00 Glucose Level 282 mg/dL (High)?? 12/25/2023 18:30 Glucose (POC) POC Cartridge 173 (High)?? 12/25/2023 18:00 Glucose, POC 195 mg/dL (High)?? 12/25/2023 20:37 BUN 25 mg/dL (High)?? 12/25/2023 18:30 Creatinine-Blood 6.6 mg/dL (High)?? 12/25/2023 18:30 Estimated GFR Creatinine 9 ML/MIN/1.73 M2 ()?? 12/25/2023 18:30 Calcium 9.0 mg/dL ()?? 12/25/2023 18:30 Calcium, Ionized pH Corrected 1.13 mmol/L ()?? 12/25/2023 18:30 Ionized Calcium (POC) POC Cartridge 1.01 mmol/L (Critical)?? 12/25/2023 18:00 Phosphorus 3.2 mg/dL ()?? 12/25/2023 18:30 Magnesium 1.8 mg/dL ()?? 12/25/2023 18:30 Protein, Total 6.9 Gm/dL ()?? 12/25/2023 18:30 Albumin 3.9 Gm/dL ()?? 12/25/2023 18:30 AG Ratio 1.3 ()?? 12/25/2023 18:30 Alkaline Phosphatase 68 units/L ()?? 12/25/2023 18:30 AST (SGOT) 42 units/L (High)?? 12/25/2023 18:30 ALT (SGPT) 36 units/L ()?? 12/25/2023 18:30 Bilirubin, Total 0.2 mg/dL ()?? 12/25/2023 18:30 Lactate 3.0 mmol/L (High)?? 12/25/2023 20:40 ?? COAG INR 1.0 ()?? 12/25/2023 18:30 Protime (PT) 10.9 seconds ()?? 12/25/2023 18:30 APTT 24.7 seconds ()?? 12/25/2023 18:30 ?? HEME OTHER Hold Lavender Top SPECIMEN DISCARDED AFTER 24 HOURS. ()?? 12/25/2023 18:30 ? EKG study * Event Display: EKG Authored Date: * Event Display: ECG 12-Lead Authored Date: Please click on pdf link to open report * Event Display: ECG 12-Lead Authored Date: Ventricular Rate: 76 BPM Atrial Rate: 76 BPM P-R Interval: 160 ms QRS Duration: 82 ms Q-T Interval: 378 ms QTC Calculation(Bazett): 425 ms P [place]: 33 degrees R [place]: -3 degrees T [place]: 39 degrees Normal sinus rhythm Normal ECG When compared with ECG of 25-DEC-2023 17:53, No significant change was found Confirmed by NERISSA BENDER MD ([id number]) on 12/26/2023 7:51:08 AM [place]: NERISSA BENDER MD * Event Display: ECG 12-Lead Authored Date: [id number] Please click on pdf link to open report * Event Display: ECG 12-Lead Authored Date: [id number] Ventricular Rate: 78 BPM Atrial Rate: 78 BPM P-R Interval: 166 ms QRS Duration: 90 ms Q-T Interval: 360 ms QTC Calculation(Bazett): 410 ms P [place]: 46 degrees R [place]: 0 degrees T [place]: 45 degrees Normal sinus rhythm Normal ECG When compared with ECG of 18-NOV-2023 11:42, No significant change was found Confirmed by NERISSA BENDER MD ([id number]) on 12/26/2023 7:50:55 AM [place]: NERISSA BENDER MD Heart * Event Display: Echocardiogram - Complete Authored Date: [id number] Transthoracic Echocardiography Report (TTE) Patient Demographics Patient Name RONI GARZA Date of Study 12/29/2023 Corporate Gender Male Facility Race Black Ethnicity Date of 1970 Height: 68.11 inches Age 53 year(s) Weight: 216.05 pounds Accession Number [id number] BSA: 2.11 m2 Room Number S243 BMI: 32.74 kg/m2 Referring Physician Miracle Benjamin MD Interpreting Simone Cast MD Physician 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 Clinical History Hypotension, obesity, DM, CAD, ICM, HFrEF, HLD Study Data Type of Study TTE procedure:Echo Complete-(Doppler, Colorflow) with Contrast. Procedure Information:Definity was administered by Manager Proposal . Study Date12/29/2023 Start Time: 10:46 AM Study Location: [facility] Adult Echo Study Status: Echo lab Patient Status: Routine Technical Quality: Technically difficult due to body habitus. Blood Pressure:83/48 mmHg EKG: Normal sinus rhythm HR: 68 bpm Contrast Medium: Definity. Amount - 2 ml Allergies - Fentanyl. - Lyrica. - Other allergy:(ancef). 2D Measurements LV Diastolic Dimension: 4.6 cm LV Systolic Dimension: 3.3 cm LV Septum Diastolic: 1.2 cm LV PW Diastolic: 1.1 cm AO Root Dimension: 2.6 cm LA ESV (BP):35.2 ml LVOT Stroke Volume: 80.48 ml LA ESV Index: 17 ml/m2 Stroke Volume Index38.14 ml/m2 LVOT: 1.9 cm Cardiac Index:2.59 l/min/m2 Ascending Aorta:2.7 cm Doppler Measurements AV Peak Velocity: 151 cm/s MV Peak E-Wave: 103 cm/s AV Peak Gradient: 9.12 mmHg MV Peak A-Wave: 107 cm/s MV E/A Ratio: 0.96 LVOT Peak Velocity: 160 cm/s MV P1/2t: 84 msec LVOT VTI28.4 cm MV Deceleration Time: 287 msec TR Velocity:253 cm/s MV Area (PHT): 2.62 cm2 TR Gradient:25.6 mmHg E' Septal Velocity: 7.2 cm/s E' Lateral Velocity: 6.68 cm/s E/Med E':14.64318 E/Lat E':15.38467 Cardiac Anatomy Left Ventricle/Interventricular Septum Mild concentric left ventricular hypertrophy. Left ventricular size and function appear grossly normal, with a visually estimated left ventricular ejection fraction of 60-65 %. No regional wall motion abnormalities. Abnormal mitral annular TDI velocities suggest impaired LV relaxation. Left Atrium/Interatrial Septum The left atrium is normal in size. The interatrial septum appears intact. Aortic Valve The aortic valve is is poorly visualized. There is an unidentifiable number of aortic valve leaflets. No aortic stenosis or regurgitation. Mitral Valve The mitral valve is normal in structure and function. There is trace mitral regurgitation. Aorta The ascending aorta and aortic root are normal in size. Right Ventricle The right ventricle is poorly visualized. Right Atrium The right atrium is poorly visualized. Pulmonic Valve The pulmonic valve is poorly visualized. There is trace pulmonic regurgitation. Tricuspid Valve The tricuspid valve is normal in structure and function. There is trace regurgitation. Pumonary Artery The pulmonary artery appears grossly normal. The pulmonary artery systolic pressure estimation is 26 mmHg plus the CVP or right atrial pressure. Venous Structures The inferior vena cava is poorly visualized. Pericardium/Extracardiac There is no significant pericardial effusion. Summary 1. Mild concentric left ventricular hypertrophy. Left ventricular size and function appear grossly normal, with a visually estimated left ventricular ejection fraction of 60-65 %. No regional wall motion abnormalities. Abnormal mitral annular TDI velocities suggest impaired LV relaxation. 2. The right ventricle is poorly visualized. 3. The atria are normal in size. 4. Trace mitral, pulmonic, and tricuspid regurgitation. 5. The pulmonary artery systolic pressure estimation is 26 mmHg plus the CVP or right atrial pressure. 6. The inferior vena cava is poorly visualized. 7. There is no significant pericardial effusion. 8. The ascending aorta and aortic root are normal in size. Comparison Comparison is made to the study of November 10, 2023. Left ventricular systolic function has improved and the previously seen wall motion abnormalities have resolved. Signature * Event Display: Echocardiogram - Complete Authored Date: [facility] Progress note * Neelima Fritz RN: PERFORM, SIGN, VERIFY, MODIFY, SIGN Event Display: Progress Note Hospital Authored Date: Patient: RONI GARZA Age: 53 years Sex: Male : 1970 Associated Diagnoses: None Author: Neelima Fritz RN Findings Narrative/Incidental Pt arrived to via wheel chair. Pt is alert and oriented x 4. Denies pain. Right FA IV. BP @ 1433, 91/46, Beatriz-Sim, Josef, MD notified via tiger text at 1442 of concern of continued hypotension.Pt's vitals were 119/59@ 554, 96/55@ 1131, and has been continuing the trend downwards. advised me he would persent this info to his attending and let me know the decision. Pt requesting a ride home. Pt was educated he will be able to get an Uber ride from the hospital tohis home.Pt reports he is unable to walk the distance from the car to get into his home and he is also unable to carry his personal item bags. CM on S2 was notified and she is getting him a WC van todischarge home. Josef Renteria MD responded via K[employer] text @ [phone], we are going to decrease his lasix to 40mg and metoprolol to 25mg; he can still go today, just encourage him to drink more fluids today . Pt was educated to increase his PO fluids today and of his medication changes per the providers note above. IV site removed. Pt leaving via WC van. . Discharge Information Case Management Discharge Plan : Case Management Discharge Plan Data 12/30/2023 9:49 EDT Discharge Level of Care at Discharge Homehealth/VNA Discharge VNA/Hospice/Home Care [facility] [phone] Name of Agency #1 [facility] Agency Video Network Engineer # Service Categories #1 Physical Therapy, Penitentiary Service Comments #1 You are discharging home with nursing/physical therapy services from [facility]. They will call you to arrange first visit, however, please call them if you do not hear from them in 48 hours at [phone] Rehabilitation Discharge : Rehab Discharge Index 12/31/2023 8:05 EDT Walker: distance 20-50 12/28/2023 9:08 EDT Comments on treatment indicated 53yo M with PMHx failed donor kidney transplant p/w hypotension and hyperkalemia. HD T/R/S. PT for bed mobility, transfers, ambulation. Rec home c PTservices. Full chart review completed Yes Other findings Per comment: Plan of care PT Gait training, Transfer training, Therapeutic exercise, Functional Activities, Balance training, Neuromuscular education * Edu JESSICA, Zoya: PERFORM, SIGN, VERIFY Event Display: Progress Note Hospital Authored Date: [id number] Patient: RONI GARZA Age: 53 years Sex: Male : 1970 Associated Diagnoses: None Author: Zoya Sorensen RN Findings Problem Related to Alteration in Tissue Perfusion : Alteration in Tissue Perfusion 12/31/2023 9:00 EDT Alteration Tissue Perfusion related to Other: Hypotension Goals & Outcomes: Tissue perfusion Pt will maintain optimal perfusion to vital organs, Pt will resume/maintain adequate peripheral circulation, Pt will experience improved tissue perfusion, Pt will be hemodynamically stable, Pt will achieve normal/improved/optimal neuro status, Pt will return to baseline respiratory function, Pt will maintain adequate GI function appropriate for pt, Pt will maintain adequate function appropriate for pt, Pt/ S.O. will state understanding of plan of care, Pt/S.O. will verbalize understanding of the D/C plan Interventions: Tissue Perfusion Assess/Monitor cardiac dysrhythmias, Assess/Monitor CMS to affectedextremity, Assess/Monitor peripheral pulses & capillary refill, Monitor blood loss, Monitor labs & report variances to provider Goals/Interventions, Tissue Perfusion Yes Tissue Perfusion, Problem Start 12/30/2023 19:00 Reviewed Plan with, Tissue Perfusion Patient Patient Progression, Tissue Perfusion Pt progressing according to plan . Nursing Data Vital Signs : VITAL SIGNS SECTION 12/31/2023 11:31 EDT Temperature 97.8 DegF Temperature Route Oral Pulse Rate 71 bpm Respiratory Rate 18 br/min Systolic Blood Pressure 96 mm Hg Diastolic Blood Pressure 55 mm Hg Blood pressure sites Arm, right Mean Arterial Pressure 69 mm Hg Pulse Pressure 41 mm Hg Oxygen Saturation 96 % Mode of Delivery (Oxygen) Room air . Narrative/Incidental Patient alert and oriented x4. Eye drops administered for glaucoma. LSC on RA. Fluid restriction maintained. Left AV fistula +bruit, +thrill. HD TTS. Pt aneuric. States no pain. Insulin pump located RLQ, patient manages. Independent in room. Please see biophysical for further assessment. Hourly rounding in place, patients safety remained. Patient transferred to S3 for discharge. Patient belongings in hand. Safety remained.. . Discharge Information Case Management Discharge Plan : Case Management Discharge Plan Data 12/30/2023 9:49 EDT Discharge Level of Care at Discharge Homehealth/VNA Discharge VNA/Hospice/Home Care [facility] [phone] Name of Agency #1 [facility] Agency Video Network Engineer # Service Categories #1 Physical Therapy, Penitentiary Service Comments #1 You are discharging home with nursing/physical therapy services from [facility]. They will call you to arrange first visit, however, please call them if you do not hear from them in 48 hours at [phone] Rehabilitation Discharge : Rehab Discharge Index 12/31/2023 8:05 EDT Walker: distance 20-50 12/28/2023 9:08 EDT Comments on treatment indicated 53yo M with PMHx failed donor kidney transplant p/w hypotension and hyperkalemia. HD T/R/S. PT for bed mobility, transfers, ambulation. Rec home c PTservices. Full chart review completed Yes Other findings Per comment: Plan of care PT Gait training, Transfer training, Therapeutic exercise, Functional Activities, Balance training, Neuromuscular education * Viraj Bryant MD: SIGN Viraj Bryant MD: SIGN, MODIFY Viraj Bryant MD: MODIFY, SIGN, VERIFY Event Display: Progress Note Hospital Authored Date: [id number] Patient: RONI GARZA Age: 53 years Sex: Male : 1970 Associated Diagnoses: None Author: Wes Lezama [facility] Progress Note Interval History Patient tolerated HD yesterday with 2.7 L removed Reports feeling well, plan for possible discharge today Review of Systems Review of Systems Constitutional: no fever. Respiratory: no shortness of breath. Cardiovascular: no peripheral edema, no chest pain. Gastrointestinal: no abdominal pain. Physical Examination Vital Signs Vitals : VITALS 12/31/2023 11:31 EDT Early Warning Score 3.00 12/31/2023 11:31 EDT Height 173 cm Temperature 97.8 DegF Temperature Route Oral Pulse Rate 71 bpm Respiratory Rate 18 br/min Systolic Blood Pressure 96 mm Hg Diastolic Blood Pressure 55 mm Hg Blood pressure sites Arm, right Mean Arterial Pressure 69 mm Hg Pulse Pressure 41 mm Hg Oxygen Saturation 96 % Mode of Delivery (Oxygen) Room air . General Appearance NAD. HEENT Moist mucous membranes. Respiratory Lungs: CTA. Cardiac Cardiac: no M/G/R. Rhythms: RRR. Abdomen/GI Abdomen: soft. Extremities No edema. Neurologic Alert & oriented x 3 . Results Review 7 Day Results Results Laboratory : LABORATORY 12/30/2023 5:46 EDT WBC 5.6 k/mm3 RBC 3.19 m/mm3 L Hgb 10.0 Gm/dL L Hct 30.6 % L MCV 95.9 femtoliters H MCH 31.3 pg MCHC 32.7 g/dL L Platelet Count 203 k/mm3 RDW-SD 59.9 femtoliters H MPV 9.4 femtoliters Nucleated RBC (Automated) 0.0 #/100 WBC'S Abs. NRBC 0.0 k/mm3 Sodium 139 mmol/L Potassium 4.1 mmol/L Chloride 95 mmol/L L Bicarbonate Level 24 mmol/L Anion Gap 20 H Glucose Level 84 mg/dL BUN 66 mg/dL H Creatinine-Blood 10.8 mg/dL H Estimated GFR Creatinine 5 ML/MIN/1.73 M2 Calcium 9.0 mg/dL Cortisol Level 2.8 ??g/dL Impression and Plan Roni Garza is a 53-year-old male with past medical history of coronary artery disease, ischemic cardiomyopathy, HFrEF (ejection fraction 35 to 40%), end-stage renal disease on hemodialysis TTS, history of prior failed donor kidney transplantation in 2010, diabetes mellitus type 1, severe hypertension, dyslipidemia, and history of prior DVT s/p IVC filter placement who presented to the 12/24 for evaluation of hypotension. 1. ESRD DDKT in 2010 c/b [facility], ACR, and TMA now dialysis dependent since 2019 Dialyzes TTS at [facility] via LUE AVG Still takes tacrolimus 0.5mg daily and prednisone 5mg daily 2. HTN / Volume Chronically patient takes Lasix 80mg daily, metoprolol 100mg daily, and Entresto 24-26mg BID Presented with hypotension, Entresto and metoprolol were held- metoprolol resumed today at half dose 3. Nephrogenic Anemia Hgb at goal for ESRD Tsat 28% and ferritin 1198 (4/6) 4. Secondary Hyperparathyroidism / MBD Calcium 9.0 (/) Phos 4.9 (4/6) PTH 90 (4/6) Plan - Continue HD on TTS schedule - Continue Lokelma 10gm every MWF - Continue tacrolimus 0.5mg daily and prednisone 5mg daily - Continue Lasix 80mg daily and metoprolol 50mg daily - No need for iron or EPO - Sevelamer 800mg TID w/ meals - Avoid calcitriol given suppressed PTH for ESRD - Renal diet Thank you for the courtesy of this consult, RTANE will continue monitoring the patient along with you. Please do not hesitate to call us with any further questions. Wes Gifford PA-C [facility] Available by [employer] Discussed with Dr. Bryant * Annette GREENWOOD, Viraj: PERFORM Event Display: Progress Note Hospital Authored Date: Chart reviewed . Patient evaluated ??I have discussed the case , its management with the??PA . Agree with the findings and plan as documented in the PA???s note, Consult note * Wes Lezama: PERFORM, SIGN, VERIFY Event Display: Consultation Note Authored Date: Patient: RONI GARZA Age: 53 years Sex: Male : 1970 Associated Diagnoses: None Author: Wes Lezama [facility] [place] Inpatient Nephrology Consultation Note Requesting Provider: Yvonne Pedro MD Reason for Consult: ESRD History of Present Illness Roni Garza is a 53-year-old male with past medical history of coronary artery disease, ischemic cardiomyopathy, HFrEF (ejection fraction 35 to 40%), end-stage renal disease on hemodialysis TTS, history of prior failed donor kidney transplantation in 2010, diabetes mellitus type 1, severe hypertension, dyslipidemia, and history of prior DVT s/p IVC filter placement who presented to the 12/24 for evaluation of hypotension. Patient had his scheduled dialysis session yesterday. He developed hypotension and took midodrine. He went home however he began feeling lightheaded and had to lower himself to the floor. He denies head trauma or loss of consciousness. Visiting nurse checked his blood pressure in the evening and found his systolic blood pressure in 60s and 70s therefore, she called 911. Upon presentation to the emergency department, he was hemodynamically stable with pressure 109/71, afebrile, saturating 100% on room air. Initial blood work was notable for chronic anemia with hemoglobin of 9.8, hyperkalemia with potassium of 6.0. Patient did receive calcium gluconate, insulin/dextrose and 1 pack of Lokelma. He did also receive half liter bolus of LR and admitted under medicine. On my assessment, patient is resting comfortably in bed. He reports feeling better today. He stateshe did have a full treatment of dialysis yesterday so was unsure why his potassium was high. He tells me that he has been above his dry weight recently but denies shortness of breath or edema. Plan for an extra dialysis session today, patient in agreement. Review of Systems Constitutional: No weight loss, fever, chills, weakness or fatigue. HEENT: No visual loss, blurred vision, double vision or yellow sclera. No hearing loss, sneezing, congestion, runny nose or sore throat. Skin: No rash or itching. Cardiovascular: No chest pain, chest pressure or chest discomfort. No palpitations or pedal edema. Respiratory: No shortness of breath, cough or sputum production. Gastrointestinal: Negative for nausea, vomiting & diarrhea. No abdominal pain or blood in stool. Genitourinary: No burning micturition. No urinary frequency or incontinence. Neurologic: No headache, dizziness, syncope, unilateral weakness, ataxia Musculoskeletal: No muscle pain, back pain, joint pain or stiffness. Hematologic: No bleeding or bruising. Lymphatics: No enlarged lymph nodes. Psychiatric: No depression or anxiety. Endocrine: No reports of sweating. No cold or heat intolerance. No polyuria or polydipsia. Health Status Allergies: Allergies (Active and Proposed Allergies Only) fentanyl (Severity: Unknown, Onset: Unknown) Reactions: trouble breathing Comments: unsure which caused trouble breathing- the Ancef or the Fentanyl- got both with a surgery Ancef (Severity: Unknown, Onset: Unknown) Reactions: trouble breathing Comments: unsure which caused trouble breathing- the Ancef or the Fentanyl - received both during a surgery Lyrica (Severity: Unknown, Onset: Unknown) Reactions: mind races Past Medical History: Kidney Biopsy-Borderline ACR, C4d neg admit- increased creatinine- ? dehydration donor transplant esrd r/t diabetes orchiopexy r/t undescended testicle CAD (coronary artery disease) Chronic kidney disease (CKD) Chronic systolic congestive heart failure Diabetes mellitus type 1 ESRD on dialysis Foot pain Hypertension Neuropathy Obese class I Presence of implanted infusion pump Transplanted kidney present Medications: Albuterol (albuterol 0.083% inhalation solution) 3 Milliliter 2.5 Milligram Inhalation Every 4 hours as needed Wheezing/Shortness of Breath for 30 Days Aspirin (aspirin 81 mg oral delayed release tablet) 81 Milligram 1 tablet By Mouth Daily for 30 Days Atorvastatin (atorvastatin 40 mg oral tablet) 1 tab(s) 40 Milligram By Mouth Daily Brimonidine Ophthalmic (brimonidine 0.2% ophthalmic solution) 1 Drops Eyes, Both 2 times a day Cyanocobalamin (Vitamin B12 1000 mcg oral tablet) 1 tab(s) 1,000 Microgram By Mouth Daily Durable Medical Equipment (Compression Stockings) See Instructions surgical, knee length 20-30 mm Hg Ergocalciferol (Vitamin D2 50,000 intl units (1.25 mg) oral capsule) 1 capsule 50,000 InternationalUnit By Mouth Every 30 days Fluticasone-Salmeterol (Advair Diskus 250 mcg-50 mcg inhalation powder) 1 puff(s) Inhalation 2 times a day Folic Acid (folic acid 1 mg oral tablet) 1 Milligram 1 tablet By Mouth Daily Furosemide (furosemide 80 mg oral tablet) 80 Milligram 1 tablet By Mouth Daily Gabapentin (gabapentin 300 mg oral capsule) 300 Milligram 1 capsule By Mouth 3 times a day for 30 Days Insulin Lispro (Humalog 100 u/ml subcutaneous injection) See Instructions 130 units Subcutaneous Infusion ON INSULIN PUMP Latanoprost Ophthalmic (Xalatan 0.005% solution) 1 Drops Eyes, Both Daily at bedtime Magnesium Oxide (magnesium oxide 400 mg oral tablet) 1 tab(s) 400 Milligram By Mouth Daily Meclizine (meclizine 25 mg oral tablet) 1 tab(s) 25 Milligram By Mouth 3 times a day Melatonin (melatonin 3 mg oral tablet) 3 Milligram By Mouth Daily at bedtime as needed as needed for insomnia Miscellaneous Rx (Please discontinue clopidpogrel 75 mg daily.) See Instructions See above Multivitamin (Nephro-Rocio oral tablet) 1 tab(s) By Mouth Daily Omeprazole (omeprazole 20 mg oral enteric coated capsule) 1 capsule 20 Milligram By Mouth Daily as needed as needed PredniSONE (predniSONE 5 mg oral tablet) 1 tab(s) 5 Milligram By Mouth Daily with food or milk sacubitril-valsartan (sacubitril-valsartan 24 mg-26 mg oral tablet) 1 tab(s) By Mouth 2 times a dayfor 90 Days Sevelamer (Renvela 800 mg oral tablet) 2 tab(s) 1,600 Milligram By Mouth Daily at 4pm sodium zirconium cyclosilicate (sodium zirconium cyclosilicate 10 g oral powder for reconstitution)10 gram By Mouth Every Friday, Friday and Friday dilute w/45 ml water, mix well, and drink immediately Tacrolimus (tacrolimus 0.5 mg oral capsule) 0.5 Milligram By Mouth Daily Tamsulosin (tamsulosin 0.4 mg oral capsule) 0.4 Milligram 1 capsule By Mouth Daily Social History: Alcohol Details: Use: Never. Employment/School Details: Status: Employed. Exercise Details: Self assessment: Fair condition. Home/Environment Details: Living situation: Home/Independent. Substance Abuse Details: Use: Never. Tobacco Details: Never smoker Electronic Cigarette/Vaping Details: Electronic Cigarette Use: Never. Family History: No positive family history reported. Physical Examination Temperature 97.9 (11:49) Systolic Blood Pressure 114 (11:49) Diastolic Blood Pressure 59 (11:49) Pulse 66 (11:49) SpO2 98 (11:49) Respiratory Rate 18 (11:49) General: No acute distress HEENT: Mucous membranes moist CV: Regular rate and rhythm Respiratory: CTAB Abdominal: Soft Extremities: No peripheral edema Neuro: AAO x3 Skin: No rashes Results Review General results Today's results 12/26/2023 10:02 EDT Sodium 137 mmol/L Potassium 5.2 mmol/L Chloride 97 mmol/L L Bicarbonate Level 23 mmol/L Anion Gap 17 Glucose Level 128 mg/dL H BUN 35 mg/dL H Creatinine-Blood 8.4 mg/dL H Estimated GFR Creatinine 7 ML/MIN/1.73 M2 Calcium 9.0 mg/dL Magnesium 1.9 mg/dL Impression and Plan Roni Garza is a 53-year-old male with past medical history of coronary artery disease, ischemic cardiomyopathy, HFrEF (ejection fraction 35 to 40%), end-stage renal disease on hemodialysis TTS, history of prior failed donor kidney transplantation in 2010, diabetes mellitus type 1, severe hypertension, dyslipidemia, and history of prior DVT s/p IVC filter placement who presented to the[facility] 12/24 for evaluation of hypotension. 1. ESRD DDKT in 2010 c/b [facility], ACR, and TMA now dialysis dependent since 2019 Dialyzes TTS at [facility] via LUE AVG Still takes tacrolimus 0.5mg daily Potassium 6.0 on arrival despite HD yesterday, improved to 5.2 with medical treatment Patient states he was prescribed Lokelma 10gm MWF but had not been taking this recently 2. HTN / Volume Chronically patient takes Lasix 80mg daily, metoprolol 100mg daily, and Entresto 24-26mg BID Presented with hypotension, Entresto being held 3. Nephrogenic Anemia Hgb at goal for ESRD Tsat 28% and ferritin 1198 (11/28) 4. Secondary Hyperparathyroidism / MBD Calcium 9.0 (12/25) Phos 4.9 (11/28) PTH 90 (11/28) Plan - Additional 3 hour HD today - Then continue HD on regular TTS schedule - Resumed Lokelma 10gm every MWF - Continue tacrolimus 0.5mg daily - Continue Lasix 80mg daily and metoprolol 100mg daily - Continue holding Entresto - No need for iron or EPO - Sevelamer 800mg TID w/ meals - Avoid calcitriol given suppressed PTH for ESRD - Renal diet Thank you for the courtesy of this consult, RTANE will continue monitoring the patient along with you. Please do not hesitate to call us with any further questions. Wes Gifford PA-C [facility] Available by [facility] Discussed with Dr. Lemus * Randell GREENWOOD, Kaycee Omer: PERFORM Event Display: Consultation Note Authored Date: [id number] Patient: ??RONI GARZA ? Age:??53 Years?Sex:??Male?:??1970?? History of Present Illness 53-year-old male with past medical history of type 1 diabetes, hypertension, DVT, HFrEF due to ischemic cardiomyopathy, coronary artery disease, end-stage renal disease with history of failed donor kidney transplantation in 2011 admitted to the hospital for hypotension and hyperkalemia.?? BIDS consulted for assistance with type 1 diabetes. ?? Patient has had a history of type 1 diabetes??for about 40 years. ??He follows with Dr. Anibal Sorenson[facility] ??He is on a Medtronic insulin pump??which he runs in automation using the hike sensor ?? Basal?? 0000 0.9 0800 2.0 TDB: 39.2 ?? CR 0000 5 1100 6 1830 6.5 ?? ISF 22 ?? Target 100-130 ?? 14-day pump interrogation reveals a total daily dose of 104.8 units of insulin??with 34%??basal andthe remainder bolus. ??207 g of carbs??entered daily on average. ?? Average blood sugar 167. ??He is in target 62% of the time. ?? Patient shares with me??that??he was??asked to remove his insulin pump around 5 or 6:00 in the evening while in the emergency room. ??He is not??offered any long-acting insulin. ??By 1 AM his blood sugar was 368. ??He was given 20 units of Lantus +16 units of correction. ??He was given another 20 units of insulin this morning. ??Total he has 40 units of basal insulin and his body. ??He is eating well. ??He would like to go back on his insulin pump Review of Systems 12 point review of systems completed and negative other than what is noted above. Physical Exam Vitals & Measurements T:??98.5?F?? TMIN:??97.4?F?? TMAX:??98.5?F?? HR:??81??(Peripheral)?? RR:??17?? BP:??114/64?? SpO2:??97%?? WT:??97.7??kg?? Eyes: Sclera nonicteric, nonindurated ENT: no goiter RESP: nonlabored breathing?? Skin: No notable rashes Neuro: Grossely normal motor function Psych: alert and oriented x4 Constitutional: Well appearing?? Assessment/Plan Assessment:??53-year-old male with past medical history of type 1 diabetes, hypertension, DVT, HFrEF due to ischemic cardiomyopathy, coronary artery disease, end-stage renal disease with history of failed donor kidney transplantation in 2010 admitted to the hospital for hypotension and hype rkalemia.??BIDS consulted for assistance with type 1 diabetes. ? Type 1 diabetes (E10.9):??Unfortunate situation where patient with type 1 diabetes was??taken off his insulin pump without giving any basal insulin.??Thankfully he did not go into??DKA During this timeframe. He currently has 40 units of basal insulin in his body which is his scheduled basal amount t hrough the pump. He would like to go back on the pump for bolusing which I do think is reasonable. He does quite well on his insulin pump at home.?I had patient place his insulin pump??back on this morning. I set a temporary basal rate of 0 to run out at??11 PM??in anticipation of his 1 AM Lantus starting to wear off ?? Consent??form signed. Flowsheet at bedside. BIDS will follow-up??while in the hospital. Once discharged??he can reach out to his outpatient quiller runner for additional??adjustment ?? Discharge Planning:? Problem List/Past Medical History Ongoing CAD (coronary artery disease) Chronic kidney disease (CKD) Chronic systolic congestive heart failure Diabetes mellitus type 1 ESRD on dialysis Foot pain Hypertension Neuropathy Obese class I Transplanted kidney present Procedure/Surgical History ???Kidney transplant right 2020; AV graft left arm; BIlateral trigger finer release suurgeries Medications Inpatient Acetaminophen Tablet, 650 mg, By Mouth, Every 4 hours, PRN aspirin 81 mg oral delayed release tablet, 81 mg, By Mouth, Daily atorvastatin 40 mg oral tablet, 40 mg, By Mouth, Daily brimonidine 0.2% ophthalmic solution, 0.2 %= 1 drops, Eyes, Both, 2 times a day calcitriol 0.25 mcg oral capsule, 0.25 mcg, By Mouth, Daily cyanocobalamin 1000 mcg oral tablet, 1000 mcg, By Mouth, Daily Dextrose 50% Inj Syringe (25Gm), 12.5 Gm, IV Push Slowly, Every 20 minutes, PRN Dextrose 50% Inj Syringe (25Gm), 25 Gm, IV Push Slowly, Every 15 minutes, PRN Dextrose 50% Inj Syringe (25Gm), 12.5 Gm, IV Push Slowly, Every 20 minutes, PRN Dextrose 50% Inj Syringe (25Gm), 25 Gm, IV Push Slowly, Every 15 minutes, PRN Docusate Sodium Capsule, 100 mg= 1 capsule, By Mouth, 2 times a day, PRN folic acid 1 mg oral tablet, 1 mg, By Mouth, Daily furosemide 80 mg oral tablet, 80 mg, By Mouth, Daily gabapentin 300 mg oral capsule, 300 mg, By Mouth, 3 times a day Glucagon Inj, 1 mg, Intramuscular, Once, PRN Glucagon Inj, 1 mg, Intramuscular, Once, PRN Glucose Gel, 15 Gm, By Mouth, Every 20 minutes, PRN Glucose Gel, 30 Gm, By Mouth, Every 20 minutes, PRN Glucose Gel, 15 Gm, By Mouth, Every 20 minutes, PRN Glucose Gel, 30 Gm, By Mouth, Every 20 minutes, PRN Heparin Inj, 5000 units= 1 mL, Subcutaneous Injection, 2 times a day Humalog U100 Insulin Pump, per pump settings, Subcutaneous Infusion, 3 times a day before meals andbedtime Melatonin Tablet, 3 mg, By Mouth, Daily at bedtime, PRN metoprolol 50 mg oral tablet, extended release, 100 mg, By Mouth, Daily midodrine 5 mg oral tablet, 10 mg, By Mouth, 3 times a day MiraLax Powder, 17 Gm= 1 pack/packet, By Mouth, Daily, PRN NaCL 0.9% Flush, 3 mL, IV Push, Every 8 hours NaCL 0.9% Flush, 3 mL, IV Push, Every 8 hours, PRN predniSONE 5 mg oral tablet, 5 mg, By Mouth, Daily Renvela 800 mg oral tablet, 800 mg, By Mouth, 3 times a day with meals Robitussin DM Liquid, 10 mL, By Mouth, Every 4 hours, PRN Senna Tablet, 8.6 mg= 1 tablet, By Mouth, 2 times a day, PRN Simethicone Tablet, 80 mg, Chew, 3 times a day, PRN tacrolimus 0.5 mg oral capsule, 0.5 mg, By Mouth, Daily tamsulosin 0.4 mg oral capsule, 0.4 mg, By Mouth, Daily at bedtime Xalatan 0.005% solution, 1 drops, Eyes, Both, Daily at bedtime Home Advair Diskus 250 mcg-50 mcg inhalation powder, 1 puffs, Inhalation, 2 times a day albuterol 0.083% inhalation solution, 2.5 mg= 3 mL, Inhalation, Every 4 hours, PRN aspirin 81 mg oral delayed release tablet, 81 mg= 1 tablet, By Mouth, Daily atorvastatin 40 mg oral tablet, 40 mg= 1 tablet, By Mouth, Daily brimonidine 0.2% ophthalmic solution, 1 drops, Eyes, Both, 2 times a day Compression Stockings, See Instructions, 2 refills cyanocobalamin 1000 mcg oral tablet, 1000 mcg= 1 tablet, By Mouth, Daily folic acid 1 mg oral tablet, 1 mg= 1 tablet, By Mouth, Daily furosemide 80 mg oral tablet, 80 mg= 1 tablet, By Mouth, Daily gabapentin 300 mg oral capsule, 300 mg= 1 capsule, By Mouth, 3 times a day Humalog 100 u/ml subcutaneous injection, See Instructions magnesium oxide 400 mg oral tablet, See Instructions MECLIZINE 25 MG TABLET, By Mouth, 3 times a day melatonin 3 mg oral tablet, 3 mg, By Mouth, Daily at bedtime, PRN omeprazole 20 mg oral enteric coated capsule, 20 mg= 1 capsule, By Mouth, Daily Omni Pod Insulin Pump Please discontinue clopidpogrel 75 mg daily., See Instructions predniSONE 5 mg oral tablet, 5 mg= 1 tablet, By Mouth, Daily Renvela 800 mg oral tablet, 800 mg= 1 tablet, By Mouth, 3 times a day with meals sacubitril-valsartan 24 mg-26 mg oral tablet, 1 tablet, By Mouth, 2 times a day, 4 refills sodium zirconium cyclosilicate 10 g oral powder for reconstitution, 10 Gm, By Mouth, Every Friday, Friday and Friday tacrolimus 0.5 mg oral capsule, 0.5 mg, By Mouth, Daily, 1 refills tamsulosin 0.4 mg oral capsule, 0.4 mg= 1 capsule, By Mouth, Daily at bedtime Xalatan 0.005% solution, 1 drops, Eyes, Both, Daily at bedtime Allergies Ancef??( trouble breathing ) Lyrica??( mind races ) fentanyl??( trouble breathing ) Social History Alcohol Use: Never. Electronic Cigarette/Vaping Electronic Cigarette Use: Never. Employment/School Status: Employed. Exercise Self assessment: Fair condition. Home/Environment Living situation: Home/Independent. Substance Abuse Use: Never. Tobacco Never smoker Family History Clotting and bleeding disorders: Negative: Mother, Father, Sister, Brother, Mat. Grandfather, Mat. Grandmother, Other, Pat. Grandfather and Pat. Grandmother. Immunizations Vaccine Date Status SARS-CoV-2 (COVID-19) mRNA-1273 vaccine 08/07/2021 Recorded SARS-CoV-2 (COVID-19) mRNA BNT-162b2 vac 12/14/2020 Recorded SARS-CoV-2 (COVID-19) mRNA BNT-162b2 vac 11/21/2020 Recorded meningococcal group B vaccine 09/14/2020 Given Meningococcal Conjugate Vaccine 09/13/2020 Given influenza virus vaccine, inactivated 06/16/2018 Recorded influenza virus vaccine, inactivated 05/27/2017 Recorded tetanus-diphtheria toxoids (Td) 08/23/2016 Recorded Tetanus Immune Globulin 03/11/2011 Given influenza virus vaccine, inactivated 06/13/2010 Given pneumococcal 23-valent vaccine 09/25/2007 Given Note * Neelima Fritz RN: PERFORM Event Display: Discharge/Transfer Note Hospital Authored Date: [id number] Nursing Discharge Note Entered On: 12/31/2023 15:48 EDT Performed On: 12/31/2023 15:47 EDT by Neelima Fritz RN Nursing Discharge Note 2 Discharge Time : 12/31/2023 15:47 EDT Discharge Level of Care at Discharge : Homehealth/VNA Discharge VNA/Hospice/Home Care(v001) : [facility] [phone] Patient Left Unit Via : Wheelchair Patient Accompanied Off Unit with : Ambulance/Chair Van Personnel Handover Given to Transport Personnel : Yes DC Instructions Provided & Signed by Pt : Yes Patient Understands D/C Instructions : Yes Patient Instructions Discharge Signed : Yes Did Pt have Specialty Bed or Wound Vac : No Neelima Fritz RN - 12/31/2023 15:47 EDT * Josef Renteria MD: MODIFY, MODIFY, MODIFY, MODIFY, MODIFY, MODIFY, MODIFY, MODIFY, MODIFY, MODIFY, MODIFY, PERFORM Event Display: Discharge/Transfer Note Hospital Authored Date: [id number] Patient: ??RONI GARZA ? Age:??53 Years?Sex:??Male?:??1970?? Patient Information Discharge Location: Primary Care Physician: Krishna Tapia MD Admit Date/Time: 12/25/23 22:14 Discharge Disposition Discharge Disposition: Home with Home Health Discharge Diagnosis Hypotension (I95.9) Diarrhea (R19.7) ESRD on dialysis (N18.6) Failed kidney transplant (T86.12) HFrEF (heart failure with reduced ejection fraction) (I50.20) Coronary artery disease (I25.10) Ischemic cardiomyopathy (I25.5) Type 1 diabetes (E10.9) Iatrogenic adrenal insufficiency (E27.49) Hyperkalemia (E87.5) BPH (benign prostatic hyperplasia) (N40.0) Dyslipidemia (E78.5) _ Discharge Medications Aspirin (aspirin 81 mg oral delayed release tablet)?81?Milligram?1?tablet?By Mouth?Daily?for 30?Days Atorvastatin (atorvastatin 40 mg oral tablet)?1?tab(s)?40?Milligram?By Mouth?Daily Brimonidine Ophthalmic (brimonidine 0.2% ophthalmic solution)?1?Drops?Eyes, Both?2 times a day Cyanocobalamin (Vitamin B12 1000 mcg oral tablet)?1?tab(s)?1,000?Microgram?By Mouth?Daily Durable Medical Equipment (Compression Stockings)?See Instructions?surgical, knee length 20-30 mm Hg Ergocalciferol (Vitamin D2 50,000 intl units (1.25 mg) oral capsule)?1?capsule?50,000?International Unit?By Mouth?Every 30 days Folic Acid (folic acid 1 mg oral tablet)?1?Milligram?1?tablet?By Mouth?Daily Furosemide (furosemide 40 mg oral tablet)?40?Milligram?1?tablet?By Mouth?Daily?for 30?Days Gabapentin (gabapentin 300 mg oral capsule)?300?Milligram?1?capsule?By Mouth?3 times a day?for 30?Days Insulin Lispro (Humalog 100 u/ml subcutaneous injection)?See Instructions?130 units Subcutaneous Infusion ON INSULIN PUMP Latanoprost Ophthalmic (Xalatan 0.005% solution)?1?Drops?Eyes, Both?Daily at bedtime Magnesium Oxide (magnesium oxide 400 mg oral tablet)?1?tab(s)?400?Milligram?By Mouth?Daily Meclizine (meclizine 25 mg oral tablet)?1?tab(s)?25?Milligram?By Mouth?3 times a day?as needed?as needed for dizziness Melatonin (melatonin 3 mg oral tablet)?3?Milligram?By Mouth?Daily at bedtime?as needed?as needed for insomnia Metoprolol (metoprolol 25 mg oral tablet, extended release)?25?Milligram?1?tablet?ByMouth?Daily?for 30?Days Multivitamin (Nephro-Rocio oral tablet)?1?tab(s)?By Mouth?Daily Omeprazole (omeprazole 20 mg oral enteric coated capsule)?1?capsule?20?Milligram?By Mouth?Daily?as needed?as needed patiromer (patiromer 8.4 g oral powder for reconstitution)?8.4?gram?By Mouth?Every Friday, Friday and Friday?for 30?Days PredniSONE (predniSONE 5 mg oral tablet)?1?tab(s)?5?Milligram?By Mouth?Daily?with food or milk Sevelamer (Renvela 800 mg oral tablet)?2?tab(s)?1,600?Milligram?By Mouth?Daily?at 4pm Tacrolimus (tacrolimus 0.5 mg oral capsule)?0.5?Milligram?By Mouth?Daily Tamsulosin (tamsulosin 0.4 mg oral capsule)?0.4?Milligram?1?capsule?By Mouth?Daily ? Medications Started patiromer (patiromer 8.4 g oral powder for reconstitution)?8.4?gram?By Mouth?Every Friday, Friday and Friday Medications Discontinued Entresto (sacubitril-valsartan) - discontinued Doses Changed Metoprolol succinate decreased to 25mg daily Furosemide decreased to 40mg daily Meclizine adjusted to PRN dosing for vertigo PCP Follow-Up/Heads-Up Mr. Garza was seen here for hypotension developed after dialysis and hyperkalemia. Entresto has been held. Renal consult thinks patient was volume overloaded and gave an extra session of dialysis on Friday to remove 3L of fluid and treat hyperkalemia. Patient should follow up with both renal and cardiac team to titrate meds. Underlying cause of volume overload despite no changes in medication or HD plan is unclear. Further workup could be done OP with PCP, renal, cardiology. Some episodes of hyperglycemia, related to removing patient's pump and giving one day of basal insulin with sliding scale/transition back to pump. - discontinued entresto given recovered EF - restarted metoprolol at lower dose (25mg) - decreased lasix to 40mg daily Future Appointments Friday. 2023 1:00 PM EDT ?? With: Roderick BARRON, Amanda Godoy Where: [facility] [address] [place] [address]- Status: Pending Friday 9:45 AM EDT ?? With: Jevon GREENWOOD, Eduardo Jameson Where: [facility] [address] [place] [id number]- Status: Pending Hospital Course 53-year-old male patient with past medical history of coronary artery disease, ischemic cardiomyopathy, HFrEF (ejection fraction 35 to 40%), end-stage renal disease on hemodialysis Friday, ,and Friday, history of prior failed donor kidney transplantation in 2010, diabetes mellitus type 1, severe hypertension, dyslipidemia, history of prior DVT s/p IVC filter placement, who presented to the ED via EMS for hypotension and generalized unwell feeling on 12/24. Patient received dialysis that morning, removed approximately 4 kg per usual and was mildly hypotensive there, they gave him midodrine and patient returned home. ??States that throughout the day he has felt dizzy and lig htheaded, did fall once at approximately 1630, no head strike and no LOC able to get himself off the floor. ??Home visiting nurse visited later in the evening and found him to be hypotensive and persistently dizzy, EMS called with initial BP found to be 67/37, improved and route and 79/48 on arrival in the ED. ??Patient does state that he has had diarrhea for the past 3 weeks, denies abdominal pain, no nausea or vomiting, no fevers, no chest pain or difficulty breathing, no headaches or blurry vision. ??Also states that he has been on Entresto for several months, however there was discussion with cardiology about decreasing dosing due to intermittent episodes of hypotension and dizziness, andreea deal BP was systolic in the 100s???110s.??In ED, EKGs were normal, troponin stable at 70/71, BNP 2,241. Patient was hyperkalemic twice on first day in hospital and treated with calcium gluconate, insulin/dextrose, and Lokelma. Also hyperglycemic due to insulin pump being removed in ED and not instructed to restart. ?? Renal was consulted and at this point we are attributing hypotension to a combination of Entresto, diarrheal illness and large volume removal at dialysis. Briefly treated with midodrine. He is now feeling better, has had no further diarrhea and hemodynamically stable with entresto being held. He isready for discharge and given his recovered EF on repeat US, will discontinue Entresto??and see cardiology in clinic. Prior to discharge, patient had SBPs in the 90s; he was asymptomatic and will by followed up by PCP and checked in dialysis so will still discharge but decrease his dose of metoprolol to 25mg and lasix to 40mg. ?? Hypotension (I95.9):?? HFrEF (heart failure with reduced ejection fraction) (I50.20): Iatrogenic Adrenal Insufficiency (E27.49) Patient developed hypotension,??associated with lightheadedness??was brought to emergency??department. Few weeks history of??diarrhea (2-3x??per day, soft). Hypotensive during his dialysis session??12/24 ??when removing 4L, was given midodrine. Hypotension is likely in the setting of hypovolemia due to diarrhea and increased dialysis. Renal team consulted, appreciate recs BP now stable off midodrine and off entresto. Echo shows recovered EF, so reached out to his liquor clerk who agreed with discontinuing entresto. Has followup scheduled AM cortisol was 2.8 (drawn early at 5:45am). Discussed with endocrinology and suspect adrenal suppression due to technician terminal and repeater prednisone. This may be contributing to hypotension in setting of viral illness and will need stress dose steroids in the future ?? Plan: -??Discontinue entresto given recovered EF. - Restarted metoprolol at 25mg daily down from prior home dose of 100mg - Decreased Lasix to 40mg daily - consider stress dose steroids for acute illness in the future ?? Hyperkalemia (E87.5): Hyperkalemia despite dialysis Previously he was on Lokelma on nondialysis days; this is not covered by his insurance so prescribed patiromer at discharge ?? Plan: - patiromer??8.4g every MWF? ESRD on dialysis (N18.6):?? Failed kidney transplant (T86.12):??prior failed donor kidney transplantation in 2010 Patient with end-stage renal disease??on hemodialysis??Friday, , and Friday with prior failed donor kidney transplantation in 2010. Was not taking tacrolimus at home but confirmed with Renal that he should take this and prednisone ?? Plan: - Continue tacrolimus 0.5mg daily??to prevent desensitization for future transplant - Continue prednisone??5mg daily - Continue 1.5L fluid restriction??daily (has been doing this for years) ?? Chronic Medical Conditions: BPH (benign prostatic hyperplasia) (N40.0):??Continue Flomax. Dyslipidemia (E78.5):??Continue atorvastatin Type 1 diabetes (E10.9):??Managed by [facility] inpatient. Resume home regimen with insulin pump and CGM Vertigo: continue home meclizine as needed Objective Vital Signs?? Temperature: 98.3 DegF (12/31/23 05:54:00) Temperature Route: Oral (12/31/23 05:54:00) Pulse Rate: 67 bpm (12/31/23 05:54:00) Respiratory Rate: 20 br/min (12/31/23 05:54:00) Systolic Blood Pressure: 119 mm Hg (12/31/23 05:54:00) Diastolic Blood Pressure: 59 mm Hg (12/31/23 05:54:00) Blood pressure sites: Arm, right (12/31/23 05:54:00) Mean Arterial Pressure: 79 mm Hg (12/31/23 05:54:00) Pulse Pressure: 60 mm Hg (12/31/23 05:54:00) Oxygen Saturation: 100 % (12/31/23 05:54:00) Mode of Delivery (Oxygen): Room air (12/31/23 05:54:00) Early Warning Score: 0 (12/31/23 08:03:53) . Physical Exam Constitutional: Alert, comfortable, no acute distress Head EENT: Atraumatic. Extraocular muscle movement intact.??Moist mucous membranes.?? Respiratory: Normal lung sounds bilaterally Cardiovascular: S1 S2 regular. Gastrointestinal: Abdomen soft, non-tender, non-distended. Normal bowel sounds. Extremities: No cyanosis or clubbing. Neurologic: Speech normal. No focal neurological deficits. Consultants Dr. Mejias (Diabetes) Dr. Pedro (Renal) Patient Education Titles [employer] Ign[employer] Patient Education - Hyperkalemia?? [employer] Patient Education - What Is Heart Failure??? Follow-Up Appointments Added Follow Up ?Time Frame ?Comments RTANE?Within one week Krishna Tapia MD?3-5 day: call to discuss follow up visit Patient Instructions You are admitted for??low blood pressure and feeling unwell.?? We think this was due to??your Entresto,??and your blood pressure was improved??since holding this medication.?? We treated with you with a medication called midodrine??which increases blood pressure,??but we do not think you will need this??when you go home. ?? Recommendations: - resume your normal dialysis schedule - reduce your??lasix??(furosemide) dose to??40mg daily - take 25mg metoprolol daily - stop taking Entresto; your pharmacy will come to update your medication pack soon, but for tonight make sure you don't take this medication - you should take tacrolimus and prednisone every day Post Discharge Care Diet: ??Renal diet Activity: ??as tolerated Code Status: ??Full Resuscitation Condition: ??fair Prognosis: ??Fair ?? Discharge Prescriptions ?ePrescribed, 12/27/23 12:06:00 EDT Home Health Face to Face *Denotes mandatory sutton ?? *I certify that this patient is under my care and that I or an allowed non- physician working with me had a face to face encounter with the patient on this date:??12/30/2023 12:41 ?? *The encounter with the patient was in whole, or in part, for the following medical condition, which is the primary diagnosis(es) for home health care:??Hypotension (I95.9) Diarrhea (R19.7) ESRD on dialysis (N18.6) Failed kidney transplant (T86.12) HFrEF (heart failure with reduced ejection fraction) (I50.20) Coronary artery disease (I25.10) Ischemic cardiomyopathy (I25.5) Type 1 diabetes (E10.9) Hyperkalemia (E87.5) BPH (benign prostatic hyperplasia) (N40.0) Dyslipidemia (E78.5) ?? *Select the indications for the discipline/s that are being arranged for this patient. Nursing (select all that apply): [_] None [x] Medication management (reconciliation, teaching)?? [x] Chronic disease management?? [_] Wound care and treatment?? [_] Home safety evaluation [_] Administer SQ/IM/IV medications?? [_] Cath care?? [_] Drain care?? [_] Trach or GT care?? Other _ Occupation Therapy (select all that apply): [_] None [_] ADL Management [_] Fall prevention training [_] Energy conservation [_] Cognitive training Other _ Physical Therapy (select all that apply): [_] None [x] Functional mobility training [x] Home exercise program to strengthen [x] Increase ROM?? [x] Falls prevention training [_] Home maintenance program for chronic disease Other _ Speech Therapy (select all that apply): [_] None [_] Swallow evaluation and training [_] Speech and language training [_] Cognitive training to process, organize, and/or recall information Other _ ? *Homebound due to (select all that apply): [_] Inability to leave home without assistance/supervision [_] Inability to ambulate without assistance [_] Pain [x] Decreased strength and endurance [_] Unsteady gait [_] Severe SOB and fatigue [_] Impaired transfers [_] Inability to negotiate stairs [_] Limited weight bearing [_] Mental status change? *Physician Signature:??Josef Renteria MD ?? *By signing this, I certify that I have personally evaluated the patient and agree with the findings and recommendations as documented above. ? Results Discharge Labs BACTERIOLOGY Blood Culture Results Preliminary report ()?? 12/25/2023 18:19 Blood Culture Specimen Source BLOOD ()?? 12/25/2023 18:19 Blood Culture Isolate 1 Comment ()?? 12/25/2023 18:19 Blood Cult 2 Results Preliminary report ()?? 12/25/2023 18:30 Blood Culture 2 Specimen Source BLOOD ()?? 12/25/2023 18:30 Blood Culture 2 Isolate 1 Comment ()?? 12/25/2023 18:30 ?? BLOOD COUNT & DIFF WBC 5.6 k/mm3 ()?? 12/30/2023 05:46 RBC 3.19 m/mm3 (Low)?? 12/30/2023 05:46 Hgb 10.0 Gm/dL (Low)?? 12/30/2023 05:46 Hct 30.6 % (Low)?? 12/30/2023 05:46 MCV 95.9 femtoliters (High)?? 12/30/2023 05:46 MCH 31.3 pg ()?? 12/30/2023 05:46 MCHC 32.7 g/dL (Low)?? 12/30/2023 05:46 Platelet Count 203 k/mm3 ()?? 12/30/2023 05:46 RDW-SD 59.9 femtoliters (High)?? 12/30/2023 05:46 MPV 9.4 femtoliters ()?? 12/30/2023 05:46 Nucleated RBC (Automated) 0.0 #/100 WBC'S ()?? 12/30/2023 05:46 Abs. NRBC 0.0 k/mm3 ()?? 12/30/2023 05:46 Abs. Neut 4.6 k/mm3 ()?? 12/25/2023 18:30 Abs. Lymph 1.6 k/mm3 ()?? 12/25/2023 18:30 Abs. Medina 0.5 k/mm3 ()?? 12/25/2023 18:30 Abs. Eo 0.1 k/mm3 ()?? 12/25/2023 18:30 Abs. Baso 0.0 k/mm3 ()?? 12/25/2023 18:30 Neut % 67.6 % ()?? 12/25/2023 18:30 Lymph % 22.8 % ()?? 12/25/2023 18:30 Medina % 7.3 % ()?? 12/25/2023 18:30 Eos % 1.5 % ()?? 12/25/2023 18:30 Baso % 0.4 % ()?? 12/25/2023 18:30 Hemoglobin (POC) POC Cartridge 12.2 Gm/dL (Low)?? 12/25/2023 18:00 Hematocrit (POC) POC Cartridge 36 % (Low)?? 12/25/2023 18:00 Imm Gran 0.4 % ()?? 12/25/2023 18:30 Abs. Imm Gran 0.0 k/mm3 ()?? 12/25/2023 18:30 ?? BLOOD GAS pH Venous (POC) POC Cartridge 7.60 (High)?? 12/25/2023 18:00 pCO2 Venous (POC) POC Cartridge 30.1 mm Hg (Low)?? 12/25/2023 18:00 pO2 Venous (POC) POC Cartridge 23 mm Hg (Low)?? 12/25/2023 18:00 Est Bicarbonate (POC) POC Cartridge 29.4 mmol/L (High)?? 12/25/2023 18:00 % O2 Sat Venous (POC) POC Cartridge 54 ()?? 12/25/2023 18:00 Base Excess (POC) POC Cartridge 8 ()?? 12/25/2023 18:00 Specimen Type - Blood Gas VENOUS ()?? 12/25/2023 18:00 ? CARDIAC Nt-Probnp 2241 pg/mL (High)?? 12/25/2023 18:30 High Sensitivity Troponin (HSTnT) 70 ng/L (Critical)?? 12/25/2023 20:40 ?? CHEM GENERAL Sodium 139 mmol/L ()?? 12/30/2023 05:46 Potassium 4.1 mmol/L ()?? 12/30/2023 05:46 Chloride 95 mmol/L (Low)?? 12/30/2023 05:46 Bicarbonate Level 24 mmol/L ()?? 12/30/2023 05:46 Anion Gap 20 (High)?? 12/30/2023 05:46 Sodium (POC) POC Cartridge 131 mmol/L (Low)?? 12/25/2023 18:00 Potassium (POC) POC Cartridge 6.4 mmol/L (Critical)?? 12/25/2023 18:00 Glucose Level 84 mg/dL ()?? 12/30/2023 05:46 Glucose (POC) POC Cartridge 173 (High)?? 12/25/2023 18:00 Glucose, POC 155 mg/dL (High)?? 12/30/2023 12:21 BUN 66 mg/dL (High)?? 12/30/2023 05:46 Creatinine-Blood 10.8 mg/dL (High)?? 12/30/2023 05:46 Estimated GFR Creatinine 5 ML/MIN/1.73 M2 ()?? 12/30/2023 05:46 Calcium 9.0 mg/dL ()?? 12/30/2023 05:46 Calcium, Ionized pH Corrected 1.13 mmol/L ()?? 12/25/2023 18:30 Ionized Calcium (POC) POC Cartridge 1.01 mmol/L (Critical)?? 12/25/2023 18:00 Phosphorus 4.9 mg/dL (High)?? 12/27/2023 08:12 Magnesium 2.1 mg/dL ()?? 12/27/2023 08:12 Protein, Total 6.4 Gm/dL ()?? 12/26/2023 04:59 Albumin 3.6 Gm/dL ()?? 12/26/2023 04:59 AG Ratio 1.3 ()?? 12/26/2023 04:59 Alkaline Phosphatase 67 units/L ()?? 12/26/2023 04:59 AST (SGOT) 28 units/L ()?? 12/26/2023 04:59 ALT (SGPT) 30 units/L ()?? 12/26/2023 04:59 Bilirubin, Total 0.2 mg/dL ()?? 12/26/2023 04:59 Lactate 2.2 mmol/L ()?? 12/27/2023 13:03 ?? COAG INR 1.0 ()?? 12/25/2023 18:30 Protime (PT) 10.9 seconds ()?? 12/25/2023 18:30 APTT 24.7 seconds ()?? 12/25/2023 18:30 ? ENDOCRINE/TUMOR MARKER Cortisol Level 2.8 ??g/dL ()?? 12/30/2023 05:46 ? HEME OTHER Hold Lavender Top SPECIMEN DISCARDED AFTER 24 HOURS. ()?? 12/26/2023 02:05 ? TOXICOLOGY/TDM Tacrolimus Level <0.8 ng/mL (Low)?? 12/25/2023 18:30 ? URINE OTHER Est Creatinine Clearance 7.68 mL/min ()?? 12/30/2023 06:50 ? Microbiology ?? Blood Culture 2 Results?? Completed?? Source: Blood Body Site: ?? Collected Dt/Tm: 12/25/2023 18:30 Last Updated Dt/Tm: 12/26/2023 18:14 ?? Blood Culture?? Completed?? Source: Blood Body Site: ?? Collected Dt/Tm: 12/25/2023 18:20 Last Updated Dt/Tm: 12/26/2023 18:14 ?? Blood Culture #2?? Completed?? Source: Blood Body Site: ?? Collected Dt/Tm: 12/25/2023 18:20 Last Updated Dt/Tm: 12/26/2023 18:14 ?? Blood Culture Result?? Completed?? Source: Blood Body Site: ?? Collected Dt/Tm: 12/25/2023 18:19 Last Updated Dt/Tm: 12/26/2023 18:14 ? Imaging(s) ?Echocardiogram - Complete ?? 12/29/2023 10:46??by Simone Cast MD ?1. Mild concentric left ventricular hypertrophy. ??Left ventricular size and function appear grossly normal, with a visually ??estimated left ventricular ejection fraction of 60-65 %. No regional wall ??motion abnormalities. ??Abnormal mitral annular TDI velocities suggest impaired LV relaxation. ??2. The right ventricle is poorly visualized. ??3. The atria are normal in size. ??4. Trace mitral, pulmonic, and tricuspid regurgitation. ??5. The pulmonary artery systolic pressure estimation is 26 mmHg plus the CVP ??or right atrial pressure. ??6. The inferior vena cava is poorly visualized. ??7. There is no significant pericardial effusion. ??8. The ascending aorta and aortic root are normal in size. ?? Comparison ??Comparison is made to the study of November 10, 2023. Left ventricular systolic ??function has improved and the previously seen wall motion abnormalities have ??resolved. ? 45??minutes spent on discharge ?? Patient seen by??and discussed with attending Dr. Ruth ?? Josef Renteria MD Internal Medicine - Pediatrics, PGY1 Please contact via [employer] or page [phone]?? * Patricia Ruth MD: PERFORM Event Display: Discharge/Transfer Note Hospital Authored Date: I have seen and evaluated the?? patient on the above day of service and discussed the case and management with the medical team as stated below. The patient reported feeling much improved. On day of discharge SBP episodes in 90s but patient asymptomatic. Decreased lasix and metoprolol dosing. PCP given a heads up for close monitoring. * Event Display: Discharge/Transfer Note Hospital Authored Date: * Neelima Fritz RN: PERFORM, MODIFY Event Display: Patient Education/Instruction Authored Date: Inpatient Adult Discharge Instructions. [address] [address] Name: RONI GARZA : 1970?? Visit: 12/25/2023 22:14?? Current Date: 12/31/2023 13:49 ?? Account: [id number]?? Inpatient Adult Discharge Instructions We would like [...] and their families. Surveys are administered by [employer] ?? If further treatment with your primary care physician or another doctor is recommended, it is important for you to keep the appointment. Call your primary care physician or return to the Emergency Department immediately if your condition worsens, fails to improve, or new symptoms develop. If you need to find a doctor, you can call [facility] Link for a referral at [phone] or toll free at [phone] or log in to [email or web address].. ?? [facility], in keeping with [facility] guidance, no longer requires face masks for staff, patientsor visitors in most situations. Similiar to time spent indoors at other locations, there is the chance that you were exposed to repiratory viruses during your time with us (such as flu or COVID-19). If you develop symptoms concerning for a viral respiratory infection, please seek testing (and treatment if indicated) from your medical provider or home test kit. ?? You can view and manage your care through the patient portal or by using a health care bam of your choosing. [employer] is a website that allows you to [...] office visit. You have been discharged from [facility], Patient Care Unit: S2??. If you have any questions regarding these instructions, including results of studies pending, afteryou leave, please call us and we will be happy to assist you 17/03. [facility] Your Care Team Attending Physician Patricia Ruth MD?? Consulting Providers Patricia Ruth MD?? Discharging Providers Josef Renteria MD Reason for Your Visit hypotension, hyperK?? Your Diagnosis Failed kidney transplant HFrEF (heart failure with reduced ejection fraction) Coronary artery disease Ischemic cardiomyopathy Iatrogenic adrenal insufficiency BPH (benign prostatic hyperplasia) Dyslipidemia Tests Performed Below is a partial list of the tests performed during your hospitalization. You may have had other tests and procedures not included in this list. Please discuss all test results with your provider. BASE EXCESS POC CARTRIDGE Basic Metabolic Panel Blood Culture Blood Culture #2 Blood Culture 2 Results Blood Culture Result BNP BUN CALCIUM IONIZED POC CART CBC CBC w/ Differential Comprehensive Metabolic Panel Cortisol Level Creatinine GLUCOSE POC GLUCOSE POC CARTRIDGE HEMATOCRIT POC CARTRIDGE HEMOGLOBIN POC CARTRIDGE HOLD LAVENDER TUBE Ionized Calcium Lactate Level Lytes Magnesium Level Mg Level Phosphorus Level POTASSIUM POC CARTRIDGE PT (INR) PTT SODIUM POC CARTRIDGE Tacrolimus Level Troponin T, High Sensitivity VBG POC CARTRIDGE No tests performed during this visit.?? Primary Care Provider Krishna Tapia MD? Advance Directive Health Care Proxy on File Yes - Health Care Proxy Yes - MOLST Discharge Vitals Temperature: 97.8 DegF Height: 173 cm Pulse Rate: 71 bpm Weight: 97.7 kg Respiratory Rate: 18 br/min Body Mass Index:??32.64 kg/m2??Critical Systolic Blood Pressure: 96 mm Hg Body surface area: 2.17 Diastolic Blood Pressure: 55 mm Hg ?? Oxygen Saturation: 96 % ?? Studies Pending All studies ordered during this hospital stay have been completed unless listed below. Please discuss all pending results with your provider listed above in these instructions. ?? No incomplete studies found?? What to do next Instructions From Your Doctor You are admitted for??low blood pressure and feeling unwell.?? We think this was due to??your Entresto,??and your blood pressure was improved??since holding this medication.?? We treated with you with a medication called midodrine??which increases blood pressure,??but we do not think you will need this??when you go home. ?? Recommendations: - resume your normal dialysis schedule - take your??lasix??(furosemide) as normal - take 50mg metoprolol daily - stop taking Entresto; your pharmacy will come to update your medication pack soon, but for tonight make sure you don't take this medication - you should take tacrolimus and prednisone every day ?? Orders??:Renal diet :as tolerated Status: ??Full Resuscitation :fair :Fair? 12/31/23 13:01:00 EDT?? Prescriptions??, ??12/27/23 12:06:00 EDT?? Scheduled Follow-Up Appointments Friday. 2023 1:00 PM EDT ?? With: Roderick BARRON, Amanda Godoy Where: [facility] [address], [address] [place] [address]- Status: Pending Friday 9:45 AM EDT ?? With: Jevon GREENWOOD, Eduardo Jameson Where: [facility] [address] [place] [address]- Status: Pending You Need to Schedule the Following Appointments Follow Up with??RTANE When:??Within Within one week Follow Up with??Krishna Tapia MD When:??Within 3-5 day: call to discuss follow up visit Discharge Medications RONI GARZA :1970 Visit Date:12/25/2023 Medications: Please continue your medications until treatment is completed or stopped by your provider. Medications not listed below should be discontinued. Discuss any questions related to medications with your provider. What How Much When Why Instructions Next Dose New patiromer (patiromer 8.4 g oral powder for reconstitution) 8.4 gram Oral Friday, Friday and Friday Duration: 30 Days 01/02/24 Changed Cyanocobalamin (Vitamin B12 1000 mcg oral tablet) 1 tab(s) Oral Daily 01/01/24 Changed Furosemide (furosemide 40 mg oral tablet) 1 tab(s) Oral Daily Duration: 30 Days Pickup at [facility] 01/01/24 Changed Insulin Lispro (Humalog 100 u/ ml subcutaneous injection) See instructions 130 units Subcutaneous Infusion ON INSULIN PUMP ?? see instructions Changed Magnesium Oxide (magnesium oxide 400 mg oral tablet) 1 tab(s) Oral Daily 01/01/24 Changed Meclizine (meclizine 25 mg oral tablet) 1 tab(s) Oral 3 times a day as needed for as needed for dizziness 12/31/23?? 9pm Changed Metoprolol (metoprolol 25 mg oral tablet, extended release) 1 tab(s) Oral Daily Duration: 30 Days Pickup at [facility] 01/01/24 Changed Omeprazole (omeprazole 20 mg oral enteric coated capsule) 1 capsule Oral Daily as needed for as needed as need for reflux per instruction Changed Sevelamer (Renvela 800 mg oral tablet) 2 tab(s) Oral Daily at 4pm ?? 12/31/23?? 4 pm Changed Tamsulosin (tamsulosin 0.4 mg oral capsule) 1 capsule Oral Daily 01/01/24 Unchanged Aspirin (aspirin 81 mg oral delayed release tablet) 1 tab(s) Oral Daily Duration: 30 Days 01/01/24 Unchanged Atorvastatin (atorvastatin 40 mg oral tablet) 1 tab(s) Oral Daily 01/01/24 Unchanged Brimonidine Ophthalmic (brimonidine 0.2% ophthalmic solution) 1 Drops Both eyes Twice a day 12/31/23?? 9pm Unchanged Durable Medical Equipment (Compression Stockings) See instructions Venous insufficiency of both lower extremities surgical, knee length 20-30 mm Hg ?? Unchanged Durable Medical Equipment (Omni Pod Insulin Pump) Unchanged Ergocalciferol (Vitamin D2 50,000 intl units (1.25 mg) oral capsule) 1 capsule Oral Every 30 days resume home schedule Unchanged Folic Acid (folic acid 1 mg oral tablet) 1 tab(s) Oral Daily 01/01/24 Unchanged Gabapentin (gabapentin 300 mg oral capsule) 1 capsule Oral 3 times a day Duration: 30 Days 12/31/23?? 9 pm Unchanged Latanoprost Ophthalmic (Xalatan 0.005% solution) 1 Drops Both eyes Daily at Bedtime ?? bedtime Unchanged Melatonin (melatonin 3 mg oral tablet) 3 Milligram Oral Daily at Bedtime as needed for as needed for insomnia as needed for sleep per instruction Unchanged Multivitamin (Nephro-Rocio oral tablet) 1 tab(s) Oral Daily 01/01/24 Unchanged PredniSONE (predniSONE 5 mg oral tablet) 1 tab(s) Oral Daily with food or milk ?? 01/01/24 Unchanged Tacrolimus (tacrolimus 0.5 mg oral capsule) 0.5 Milligram Oral Daily Pickup at [facility] 01/01/24 Pharmacy Information [facility]: [address] [place] [address] [phone] ?? What How Much When Comments Stop Taking Albuterol (albuterol 0.083% inhalation solution) 3 Milliliter Inhalation Every 4 hours as needed for Wheezing/Shortness of Breath Duration: 30 Days Stop Taking Calcitriol (calcitriol 0.5 mcg oral capsule) 3 capsule Oral Every Friday, and Friday Duration: 30 Days Stop Taking Fluticasone-Salmeterol (Advair Diskus 250 mcg-50 mcg inhalation powder) 1 puff(s) Inhalation Twice a day Stop Taking Miscellaneous Rx (Please discontinue clopidpogrel 75 mg daily.) See instructions See above ?? Stop Taking sacubitril-valsartan (sacubitril-valsartan 24 mg-26 mg oral tablet) 1 tab(s) Oral Twice a day Duration: 90 Days Stop Taking sodium zirconium cyclosilicate (sodium zirconium cyclosilicate 10 g oral powder for reconstitution) 10 gram Oral Friday, Friday and Friday dilute w/ 45 ml water, mix well, and drink immediately ?? Prescription Given During Visit Furosemide (furosemide 40 mg oral tablet) - 1 tablet = 40 mg, By Mouth, Daily, # 30 tablet, 0 Refills, [facility], [place] [address] [phone]?? Metoprolol (metoprolol 25 mg oral tablet, extended release) - 1 tablet = 25 mg, By Mouth, Daily, # 30 tablet, 0 Refills, [facility], [place] [address] [phone]?? Tacrolimus (tacrolimus 0.5 mg oral capsule) - 0.5 mg, By Mouth, Daily, # 90 tablet, 1 Refills, [facility], [place] [address] [phone]?? patiromer (patiromer 8.4 g oral powder for reconstitution) - 8.4 Gm, By Mouth, Every Friday, Friday and Friday, # 12 each, 0 Refills?? Laboratory Results Below is a partial list of the most recent Laboratory test results done prior to this discharge. You may have had other tests and procedures not included in this list. Please discuss all test resultswith your provider. Est Creatinine Clearance - 7.68 mL/min (12/30/2023) BASE EXCESS POC CARTRIDGE (12/25/2023) ???Base Excess (POC) POC Cartridge - 8 Basic Metabolic Panel (12/30/2023) ???Sodium - 139 mmol/L???Potassium - 4.1 mmol/L???Chloride - 95 mmol/L???Bicarbonate Level - 24 mmol/L???Anion Gap - 20???Glucose Level - 84 mg/dL???BUN - 66 mg/dL???Creatinine-Blood - 10.8 mg/dL???Estimated GFR Creatinine - 5 ML/MIN/1.73 M2???Calcium - 9.0 mg/dL Blood Culture (12/25/2023) ???Blood Culture Results - Final report???Blood Culture Specimen Source - BLOOD Blood Culture #2 (12/25/2023) ???Blood Cult 2 Results - Final report???Blood Culture 2 Specimen Source - BLOOD Blood Culture 2 Results (12/25/2023) ???Blood Culture 2 Isolate 1 - Comment Blood Culture Result (12/25/2023) ???Blood Culture Isolate 1 - Comment BNP (12/25/2023) ???Nt-Probnp - 2241 pg/mL BUN (12/28/2023) ???BUN - 25 mg/dL CALCIUM IONIZED POC CART (12/25/2023) ???Ionized Calcium (POC) POC Cartridge - 1.01 mmol/L CBC (12/30/2023) ???WBC - 5.6 k/mm3???RBC - 3.19 m/mm3???Hgb - 10.0 Gm/dL???Hct - 30.6 %???MCV - 95.9 femtoliters???MCH - 31.3 pg???MCHC - 32.7 g/dL???Platelet Count - 203 k/mm3???RDW-SD - 59.9 femtoliters???MPV - 9.4 femtoliters???Nucleated RBC (Automated) - 0.0 #/100 WBC'S???Abs. NRBC - 0.0 k/mm3 CBC w/ Differential (12/25/2023) ???WBC - 6.8 k/mm3???RBC - 3.10 m/mm3???Hgb - 9.8 Gm/dL???Hct - 31.1 %???MCV - 100.3 femtoliters???MCH - 31.6 pg???MCHC - 31.5 g/dL???Platelet Count - 167 k/mm3???RDW-SD - 70.0 femtoliters???MPV - 10.9 femtoliters???Nucleated RBC (Automated) - 0.0 #/100 WBC'S???Abs. NRBC - 0.0 k/mm3???Abs. Neut - 4.6 k/mm3???Abs. Lymph - 1.6 k/mm3???Abs. [place] - 0.5 k/mm3???Abs. Eo - 0.1 k/mm3???Abs. Baso - 0.0 k/mm3???Neut % - 67.6 %???Lymph % - 22.8 %???Medina % - 7.3 %???Eos % - 1.5 %???Baso % - 0.4 %???Imm Gran - 0.4 %???Abs. Imm Gran - 0.0 k/mm3 Comprehensive Metabolic Panel (12/26/2023) ???Sodium - 134 mmol/L???Potassium - 5.3 mmol/L???Chloride - 97 mmol/L???Bicarbonate Level - 23 mmol/L???Anion Gap - 14???Glucose Level - 269 mg/dL???BUN - 33 mg/dL???Creatinine-Blood - 7.7 mg/dL???Estimated GFR Creatinine - 8 ML/MIN/1.73 M2???Calcium - 9.0 mg/dL???Protein, Total - 6.4 Gm/dL???Albumin - 3.6 Gm/dL???AG Ratio - 1.3???Alkaline Phosphatase - 67 units/L???AST (SGOT) - 28 units/L???ALT(SGPT) - 30 units/L???Bilirubin, Total - 0.2 mg/dL Cortisol Level (12/30/2023) ???Cortisol Level - 2.8 ??g/dL Creatinine (12/28/2023) ???Creatinine-Blood - 5.6 mg/dL???Estimated GFR Creatinine - 12 ML/MIN/1.73 M2 GLUCOSE POC (12/31/2023) ???Glucose, POC - 94 mg/dL GLUCOSE POC CARTRIDGE (12/25/2023) ???Glucose (POC) POC Cartridge - 173 HEMATOCRIT POC CARTRIDGE (12/25/2023) ???Hematocrit (POC) POC Cartridge - 36 % HEMOGLOBIN POC CARTRIDGE (12/25/2023) ???Hemoglobin (POC) POC Cartridge - 12.2 Gm/dL HOLD LAVENDER TUBE (12/26/2023) ???Hold Lavender Top - SPECIMEN DISCARDED AFTER 24 HOURS. Ionized Calcium (12/25/2023) ???Calcium, Ionized pH Corrected - 1.13 mmol/L Lactate Level (12/27/2023) ???Lactate - 2.2 mmol/L Lytes (12/28/2023) ???Sodium - 137 mmol/L???Potassium - 4.2 mmol/L???Chloride - 93 mmol/L???Bicarbonate Level - 25 mmol/L???Anion Gap - 19 Magnesium Level (12/26/2023) ???Magnesium - 1.9 mg/dL Mg Level (12/27/2023) ???Magnesium - 2.1 mg/dL Phosphorus Level (12/27/2023) ???Phosphorus - 4.9 mg/dL POTASSIUM POC CARTRIDGE (12/25/2023) ???Potassium (POC) POC Cartridge - 6.4 mmol/L PT (INR) (12/25/2023) ???INR - 1.0???Protime (PT) - 10.9 seconds PTT (12/25/2023) ???APTT - 24.7 seconds SODIUM POC CARTRIDGE (12/25/2023) ???Sodium (POC) POC Cartridge - 131 mmol/L Tacrolimus Level (12/25/2023) ? ?Tacrolimus Level - <0.8 ng/mL Troponin T, High Sensitivity (12/25/2023) ???High Sensitivity Troponin (HSTnT) - 70 ng/L VBG POC CARTRIDGE (12/25/2023) ???pH Venous (POC) POC Cartridge - 7.60???pCO2 Venous (POC) POC Cartridge - 30.1 mm Hg???pO2 Venous(POC) POC Cartridge - 23 mm Hg???Est Bicarbonate (POC) POC Cartridge - 29.4 mmol/L???% O2 Sat Venous (POC) POC Cartridge - 54???Specimen Type - Blood Gas - VENOUS Allergies (NKA means No Known Allergies) Ancef??( [...] Educational Leaflet Providered with your Discharge Instructions. WebMD Ignite Patient Education - Hyperkalemia?? WebMD Ignite Patient Education - What Is Heart Failure??? Valuables and Belongings I fully understand and agree that [facility] accepts no responsibility for all my [...] patient Date for Pt to Sign Valuables/Belongings: 12/26/23 01:04:00 ?? Other Discharge Information ? Case Management Discharge Plan?? Discharge Plan?? Discharge Agency Information?? Discharge Level of Care at Discharge: Homehealth/VNA Name of Agency #1: [facility] Discharge VNA/Hospice/Home Care: [place] [phone] Agency Video Network Engineer #1: [phone] ?? Service Categories #1: Physical Therapy, Penitentiary ?? Service Comments #1: You are discharging home with nursing/physical therapy services from [facility]. They will call you to arrange first visit, however, please call them if you do not hearfrom them in 48 hours at [phone] ?? Pulmonary Rehab Status?? Pulmonary Rehab Discharge [...] are strongly encouraged to quit. Please call [facility] at [phone] or [phone] [facility] ([phone]) or log in to [email or web address] for referrals to smoking cessation programs. ?? 640 Suicide & Crisis Lifeline is available 17/03 if you or someone you know needs to find a reason to keep living. By calling 796 you'll be connected to a skilled, trained counselor at a crisis center in your area. INPATIENT DISCHARGE INSTRUCTIONS SIGNATURE RONI VEGA Location:[facility] Registration Date and Time:12/25/2023 22:14 EDT Primary Care Physician: Krishna Tapia MD, Attending Physician: Patricia Ruth MD, I RONI GARZA, have received the above patient education materials/instructions and have verbalized understanding. If ambulance or transport services are being used I further acknowledge being given a choice of service. ?? If you need to contact me, please call me at this number: . Patient/Hack Driver Name: Patient/Hack Driver Signature: Relationship to Patient: Witness Name/Signature: Date: * Shala Rinaldi RN: VERIFY, PERFORM, SIGN Event Display: Case Management Discharge Plan Authored Date: [id number] Patient: RONI GARZA Age: 53 years Sex: Male : 1970 Associated Diagnoses: None Author: Shala Rinaldi RN Discharge Plan Case Management Discharge Plan : Case Management Discharge Plan Data 12/30/2023 9:49 EDT Discharge Level of Care at Discharge Homehealth/VNA Discharge VNA/Hospice/Home Care [facility] [phone] Name of Agency #1 [facility] Agency Video Network Engineer # Service Categories #1 Physical Therapy, Penitentiary Service Comments #1 You are discharging home with nursing/physical therapy services from [facility]. They will call you to arrange first visit, however, please call them if you do not hear from them in 48 hours at [phone] * Annita Caceres: PERFORM Event Display: Patient Education Leaflets Authored Date: [id number] Hyperkalemia ?? [id number] Hyperkalemia Hyperkalemia is too much potassium in the blood. This most often occurs in people who take??certainmedicines or who have kidney disease. This condition often has no symptoms until levels of potassium become dangerously high. If symptomsdo occur, they include muscle weakness and changes in the heartbeat. A blood test is done to diagnose the problem. An ECG (electrocardiogram) may also be done to quickly look at the way the heart is b eating. If hyperkalemia is caused by a medicine, the healthcare provider may lower the dose or switch to a different medicine. A low-potassium diet may also be prescribed.??You may be prescribed a medicine that decreases potassium until your levels are normal. Home care ??? Be sure your healthcare provider knows about all of the medicines you take. This includes prescription and gfqp-vzy-wpqiuom medicines, supplements, herbs, and illegal drugs.??Follow your healthcare provider's advice about making changes to your medicines. ??? If a low-potassium diet has been prescribed, follow this closely. If you need help, ask to be referred to a dietitian for advice on how to follow this diet. Take any medicines prescribed. ?? Follow-up care Follow up with your healthcare provider. You may need a repeat blood test within the next??7 days. Schedule this as advised. ?? When to get medical advice Call your healthcare provider right away??if any of the following occur: ??? Nausea, vomiting, or diarrhea ??? Urinating only in small amounts or not urinating ??? Symptoms don't go away or get worse ?? Call 911 Call 911??if any of the following occur: ??? Fast or irregular heartbeat ??? Fainting, dizziness, or lightheadedness ??? Severe shortness of breath ??? Chest, arm, shoulder, neck or upper back pain ??? Trouble controlling your muscles or muscle weakness ?? Last Reviewed Date: 2022 ?? [id number] [employer]. All rights reserved. This information is not intended as a substitute for professional medical care. Always follow your healthcare professional's instructions. ?? * Annita Caceres: PERFORM Event Display: Patient Education Leaflets Authored Date: [id number] What Is Heart Failure? ?? 61949 What Is Heart Failure? The heart is a muscle that pumps oxygen-rich blood to all parts of the body. When you have heart failure, the heart is not able to pump as well as it should. Blood and fluid may back up into the lungs, and some parts of the body don???t get enough oxygen-rich blood to work normally. When you have heart failure With heart failure, not enough oxygen-rich blood leaves the heart with each beat. There are 2 typesof heart failure. Both affect how well the left ventricles can pump blood. You may have??one or both types. Systolic heart failure. ??The heart muscle becomes weak and enlarged. It can???t pump enough oxygen-rich blood forward to the rest of the body when the ventricles contract. The measurement of how much blood your heart pumps out with each beat is called ejection fraction. In systolic heart failure, the ejection fraction is lower than normal. This can cause blood to back up into the lungs and causeshortness of breath and eventually ankle swelling (edema). This is also known as heart failure withreduced ejection fraction (HFrEF), heart failure with mildly reduced ejection fraction (HFmrEF), orheart failure with improved ejection fraction (HFimpEF). Diastolic heart failure.??The heart muscle becomes stiff. It doesn???t relax normally between contractions. This keeps the ventricles from filling with blood as they should. Ejection fraction is often in the normal range. This can still lead to the backup of blood into the body and affect the organs such as the liver. This is also called heart failure with preserved ejection fraction, or HFpEF. ?? Recognizing heart failure symptoms When you have heart failure, you need to pay close attention to your body and how you feel, every single day. That way, if a problem occurs, you can get help before it becomes too severe. You'll needto watch for changes in your symptoms. As long as symptoms stay about the same from one day to the next, your heart failure is stable. But if symptoms start to get worse, it's time to take action. Signs and symptoms of worsening heart failure include: ??? Rapid weight gain from fluid buildup ???Shortness of breath, especially when lying down flat ??? Fast heart rate ??? Cough that won't go away ??? Swelling, especially in the feet (edema), legs, or abdomen ??? Tiredness (fatigue) ??? Nauseaor loss of appetite ?? How heart failure affects your body When the heart doesn't pump enough blood, hormones are sent to increase the amount of work the heart does. Some hormones make the heart grow larger. Others tell the heart to pump faster. As a result,the heart may pump more blood at first, but it can't keep up with the ongoing demands. So, the heart muscle becomes even weaker. Over time, even less blood is pumped through the heart. This leads to problems throughout the body as organs start to feel the effects of a long-term lack of oxygen. If not treated, over time this can cause problems with your lungs, liver, and kidneys. Long-term (chronic) leg swelling (edema) can also cause skin changes and breakdown. A weak heart itself can eventually cause a severe decline in health and possible if left untreated. ?? What is ejection fraction? Left ventricular ejection fraction (LVEF) is a measurement of how well your heart pumps blood. It measures how much blood in the heart's ventricle is pumped out (ejected) with each heartbeat. This ismeasured to help diagnose heart failure. A healthy heart pumps at least half of the blood from the ventricles with each beat. This means a normal ejection fraction is around 50% to 70%. There are 4 groupings of HF measured through LVEF. ??? HFrEF. LVEF is 40% or less. (systolic HF) ??? HFmrEF. LVEF is 41% to 49% with higher filling pressure in the left ventricle. (systolic HF) ??? HFimpEF. A past LVEF less than 40% and a follow-up amount of LVEF greater than 40%. (systolic HF) ??? HFpEF. LVEF is 50% or more with higher filling pressure in the left ventricle. (diastolic HF) Your healthcare provider will calculate ejection fraction from an echocardiogram or other tests. Your healthcare provider can talk with you about treatment options and how to improve your EF. ?? My ejection fraction Date: Ejection fraction: Test used: ?? How daily issues affect your health Many things in your daily life impact your health. This can include transportation, money problems,housing, access to food, and child care provider. If you can???t get to medical appointments, you may not receive the care you need. When money is tight, it may be difficult to pay for medicines. And living far from a grocery store can make it hard to buy healthy food. If you have concerns in any of these or other areas, talk with your healthcare team. They may know of local resources to assist you. Or they may have a staff person who can help. ?? Last Reviewed Date: 2023 ?? [employer]. All rights reserved. This information is not intended as a substitute for professional medical care. Always follow your healthcare professional's instructions. ?? Patient Care team information Care Team Personnel Name: Wild Santos RN Position: [facility] RN Member Role: Primary Care Nurse Name: Dolly Mccormick RN Position: [facility] RN Member Role: Primary Care Nurse Name: Lucy Garcia RN Position: [facility] ED RN W/OE and Tasks Member Role: Primary Care Nurse Name: Julianna Mazariegos RN Position: [facility] RN Member Role: Primary Care Nurse Name: Simin Rosario RN Position: [facility] RN Member Role: Primary Care Nurse Name: Nupur Young RN Position: [facility] RN Member Role: Primary Care Nurse Name: Faby Saleh RN Position: [facility] RN Member Role: Primary Care Nurse Name: Janie Kunz RN Position: [facility] RN Member Role: Primary Care Nurse Name: Krishna Tapia MD Position: [facility] Outreach Member Role: PCP Address: Address: [address] [place] [address] [place] [address]- [place] Name: Estella Mann Position: [facility] Associate Professional Member Role: [employer] Consult[employer] Provider Address: Address: [address] [facility] [address] [place] [address]- [place] Name: Miguelangel Cancino MD Position: [facility] Renal MD Member Role: [employer] Consulting Physician Address: Address: [address] [place] [address] [address] [place] [address]- [place] Name: Filomena Austin RN Position: [facility] RN Member Role: Primary Care Nurse Name: Venkatesh Tirado RN Position: [facility] Outreach Member Role: Primary Care Nurse Name: Maddy Skelton Position: [facility] RN Member Role: Primary Care Nurse Name: Elise Yao LPN Position: [facility] RN Member Role: Primary Care Nurse Name: Barak Shaw DO Position: [facility] Renal MD Member Role: [employer] Consulting Physician Address: Address: [address] [place] [address] [address] [facility] [place], [place] [address] Name: Tayla Fine Position: [facility] Outreach Member Role: Lifetime Consulting Physician Name: Niki Montes RN Position: [facility] RN Member Role: Primary Care Nurse Name: Stella Calhoun RN Position: [facility] RN Member Role: Primary Care Nurse Name: Wes Lezama Position: [facility] Associate Professional Member Role: [employer] Consulting Provider Address: Address: [address] [place] [address]- Name: Kinjal Macias RN Position: [facility] RN Member Role: Primary Care Nurse Name: Estephania Pizano RN Position: [facility] ED RN W/OE and Tasks Member Role: Primary Care Nurse Name: Zita Barrow RN Position: [facility] AMB Nurse Member Role: Primary Care Nurse Name: Alexis Brooke MD Position: [facility] Renal MD Member Role: Lifetime Consulting Physician Address: Address: [address] [place] [address] [address] [facility] [place] [address]- Name: Chantelle Villareal RN Position: [facility] RN Member Role: Primary Care Nurse Name: Brisa Michaels RN Position: [facility] RN Member Role: Primary Care Nurse Name: London Chau RN Position: [facility] RN Member Role: Primary Care Nurse Name: Neelima Fritz RN Position: [facility] RN Member Role: Primary Care Nurse Name: Ana Schafer RN Position: [facility] RN Member Role: Primary Care Nurse Name: Liz Aguilera RN Position: [facility] Outreach Member Role: Lifetime Consulting Physician Name: Reyna Dumont RN Position: [facility] RN Member Role: Primary Care Nurse Name: Sudhir Chan Position: [facility] Outreach Member Role: Lifetime Consulting Physician Name: Roselia Crain RN Position: [facility] RN Member Role: Primary Care Nurse Name: Marcelo Joy MD Position: [facility] Renal MD Member Role: Lifetime Consulting Physician Address: Address: [address] [place] [address] [facility] [place], [place] [address] [[email or web address]] Name: Nell Copeland RN Position: [facility] RN Member Role: Primary Care Nurse Name: Star Hagen RN Position: [facility] RN Member [...] BLOUNT RN Member Role: Primary Care Nurse Care Team Related Persons Name: KAYCE PARK Address: [address] [place] [address] Name: SANTIAGO NAZARIO Address: [address] [place] [address]
--- OUTSIDE RECORDS SUMMARY | 2024-01-23 20:42 | XMS_ITS | Continuity of Care Document ---
Author Organization [facility] Address [address] [place] [address]- Care Team Providers Care Bottom Hoop Driver Name Role Phone Krishna Tapia MD Primary Care Physician Encounter [facility] Date(s): 06/18/23 - 07/18/23 [facility] [address] [place] [id number] Allergies, Adverse Reactions, Alerts Substance Reaction [...] 06/22/22 6:51:00 EDT, [facility] [...] Route to Pharmacy Electronically, [facility], Partial fill upon patient request if [...] DAY, # 180 tablet, 1 Refills, [id number], 173,cm, 01/24/22 16:16:00 EDT, Height, 91.1, kg, [...] 11/07/22 16:29:00 EDT, Route to Pharmacy Electronically, [facility], Partial fill upon patient request [...] 4 Refills, Maintenance, 06/24/23 12:07:00 EDT, Tablet, [facility], Partial fill upon patient request [...] MRI Safety Implantable Status Assigning Authority Unknown [id number] Unknown Unknown 09/26/25 Unknown Unknown Active Unknown Patient Care team information Care Team Personnel Name: Wild Santos RN Position: [facility] RN Member Role: Primary Care Nurse Name: Lucy Garcia RN Position: S RN Member Role: Primary Care Nurse Name: Julianna Mazariegos RN Position: S RN Member Role: Primary Care Nurse Name: Simin Rosario RN Position: S RN Member Role: Primary Care Nurse Name: Janie Kunz RN Position: S RN Member Role: Primary Care Nurse Name: Krishna Tapia MD Position: [facility] Outreach Member Role: PCP Address: Address: [address] [place] [address] Krishna Layne [place] - [place] Name: Miguelangel Cancino MD Position: [facility] Renal MD Member Role: Lifetime Consulting Physician Address: Address: [address] [place] [address] [address] [place] [address]- [place] Name: Lavonne Mckenzie RN Position: [facility] RN Member Role: Primary Care Nurse Name: Filomena Austin RN Position: [facility] RN Member Role: Primary Care Nurse Name: Faby Guido RN Position: S RN Member Role: Primary Care Nurse Name: Maddy Skelton Position: S RN Member Role: Primary Care Nurse Name: Elise Yao LPN Position: [facility] RN Member Role: Primary Care Nurse Name: Barak Shaw DO Position: [facility] Renal MD Member Role: Lifetime Consulting Physician Address: Address: [address] [place] [address] [address] [facility] [place] [address]- Name: Tayla Fine Position: [facility] Outreach Member Role: Lifetime Consulting Physician Name: Niki Montes RN Position: [facility] RN Member Role: Primary Care Nurse Name: Stella Calhoun RN Position: [facility] RN Member Role: Primary Care Nurse Name: Wes Lezama Position: [facility] Associate Professional Member Role: Lifetime Consulting Provider Address: Address: [address] [place] [address]- Name: Kinjal Macias RN Position: [facility] RN Member Role: Primary Care Nurse Name: Estephania Pizano RN Position: [facility] ED RN W/OE and Tasks Member Role: Primary Care Nurse Name: Zita Barrow RN Position: [facility] SN RN Member Role: Primary Care Nurse Name: Alexis Brooke MD Position: [facility] Renal MD Member Role: Lifetime Consulting Physician Address: Address: [address] [place] [address] [address] [facility] [place] [address]- Name: Chantelle Villareal RN Position: [facility] RN Member Role: Primary Care Nurse Name: Brisa Michaels RN Position: [facility] RN Member Role: Primary Care Nurse Name: London Chau RN Position: S RN Member Role: Primary Care Nurse Name: Ana Schafer RN Position: S RN Member Role: Primary Care Nurse Name: Liz Aguilera RN Position: [facility] Outreach Member Role: Lifetime Consulting Physician Name: Sudhir Chan Position: [facility] Outreach Member Role: Lifetime Consulting Physician Name: Roselia Crain RN Position: [facility] RN Member Role: Primary Care Nurse Name: Jorge Crews RN Position: S RN Member Role: Primary Care Nurse Address: Address: [address] [place] [address] Name: Marcelo Joy MD Position: [facility] Renal MD Member Role: Lifetime Consulting Physician Address: Address: [address] [place] [address] [facility] [address] Name: Nell Copeland RN Position: [facility] RN Member Role: Primary Care Nurse Name: Star Hagen RN Position: [facility] RN Member Role: Primary Care Nurse Name: Odalis Roy RN Position: [facility] SN RN Member Role: Primary Care Nurse Name: Merline Carlson RN Position: S RN Member Role: Primary Care Nurse Name: Nupur Black RN Position: [facility] RN Member Role: Primary Care Nurse Name: Serena Allen RN Position: [facility] Onco RN Member Role: Primary Care Nurse Name: Maura Tsang RN Position: [facility] RN Member Role: Primary Care Nurse Care Team Related Persons Name: KAYCE PARK Address: [address] [place] [address] Name: NAZARIOSANTIAGO Address: [address] [place] [address]
--- OUTSIDE RECORDS SUMMARY | 2024-01-23 20:42 | XMS_ITS | Continuity of Care Document ---
Author Organization [facility] Address [address] [place] [address]- Care Team Providers Care Overhead Worker Name Role Phone Krishna Tapia MD Primary Care Physician [phone] Encounter [facility] Date(s): 09/03/23 - 09/10/23 [facility] [address] [place] [address]- Encounter Diagnosis Peripheral artery disease(Discharge Diagnosis) - 09/03/23 Attending Physician: Anabel GREENWOOD, Amanda Chapin Admitting Physician: Anabel GREENWOOD, Amanda Chapin Referring Physician: Krishna Tapia MD Allergies, Adverse [...] 0 Refills, Maintenance, 06/22/22 6:51:00 EDT, Capsule, [facility] 3, Partial fill upon [...] 08/29/22 8:44:00 EST, Route to Pharmacy Electronically, [facility], Partial fill upon [...] EVERY DAY, # 180 tablet, 1 Refills, [facility] [id number], 173,cm, 01/24/22 16:16:00 EDT, Height, 91.1, kg, [...] 11/07/22 16:29:00 EDT, Route to Pharmacy Electronically, [facility], Partial fill upon patient request [...] 4 Refills, Maintenance, 06/24/23 12:07:00 EDT, Tablet, [facility], Partial fill upon patient request if [...] Active [place] [facility] Tue, Thurs, and Sat Diagnosis Diagnosis Type Effective Dates Health Status Clinical Service Informant Peripheral artery disease Discharge Diagnosis 09/03/23 Vital Signs Most recent to oldest [Reference Range]: 1 Height 173 cm (09/03/23 1:55 PM) Weight 89.81 kg (09/03/23 1:55 PM) Oxygen Saturation [94-100 %] 96 % (09/03/23 1:55 PM) Pulse Rate [55-90 bpm] 107 bpm *H* (09/03/23 1:55 PM) Body Mass Index [18.5-24.99 kg/m2] 30.01 kg/m2 *>HHI* (09/03/23 1:55 PM) Blood Pressure [90-138/55-84 mm Hg] 82/4 8mm Hg *L* (09/03/23 1:55 PM) Blood pressure sites Arm, right (09/03/23 1:55 PM) Weight Obtained Via Patient/family state d (09/03/23 1:55 PM) Social History Social History Type Response Smoking Status Never smoker entered on: 01/06/17 Sex Male Implantable Device List Procedure Provider Procedure Date Device Type Site Creation Arteriovenous Graft Upper Extre Angie GREENWOOD, Josef Wallace 03/12/21 Unknown Arm Left Device Identifier Serial Number Lot or Batch Number Manufacturing Date Expiration Date Distinct Identification Code MRI Safety Implantable Status Assigning Authority Unknown [id number] Unknown Unknown 09/26/25 Unknown Unknown Active Unknown Note * Reyna Bates: PERFORM, SIGN, VERIFY Event Display: Patient Education/Instruction Authored Date: [id number] [facility] *[facility] [address] Clinical Summary Name RONI VIRAMONTES Age 53 Years 1970 PCP Krishna Tapia MD PCP Visit Date 09/03/2023 13:40:00 Additional Instructions: Scheduled Appointments?? Future Appointments ?*WF??Card??[facility] ?[address],??[place],??[address] ?Phone:??--?Fax:??-- ?Appt. Date:??09/30/2023?11:30 AM ?Scheduled Provider:??Kailey GREENWOOD, Rachel Cross Follow-Up Instructions ?? With: Address: When: Anabel GREENWOOD, Amanda Chapin [address] [facility] [place] [place] [address] In 1 year Comments: with RITU Diagnosis Peripheral artery disease Medications: Please continue your medications until treatment is completed or stopped by your provider. Discuss any questions related to medications with your provider. Medications to Continue with No Changes These [...] for 30 Days. Refills: 0. Next Dose: Clopidogrel (clopidogrel 75 mg oral tablet) 1 tab(s) Oral Daily. Next Dose: Cyanocobalamin (cyanocobalamin 1000 mcg oral tablet) 1 tab(s) Oral Daily. Next Dose: Durable Medical Equipment (Compression Stockings) surgical, knee length 20-30 mm Hg. Refills: 2. Next Dose: Durable Medical Equipment (Omni Pod Insulin Pump) Next Dose: Fluticasone-Salmeterol (Advair Diskus 250 mcg-50 [...] for 30 Days. Refills: 0. Next Dose: Insulin Lispro (Humalog 100 u/ml subcutaneous injection) Subcutaneous InfusiON INSULIN PUMP. Next Dose: Latanoprost Ophthalmic (Xalatan 0.005% solution) [...] Dose: Miscellaneous Rx (MECLIZINE 25 MG TABLET) Oral 3 times a day. Next Dose: Miscellaneous Rx (Please discontinue clopidpogrel 75 mg daily.) See above. Refills: 0. Next Dose: Omeprazole (omeprazole 20 mg oral enteric coated capsule) 1 capsule Oral Daily. Next Dose: sacubitril-valsartan (sacubitril-valsartan 24 mg-26 mg oral tablet) 1 tab(s) Oral twice a day for 90 Days. Refills: 4. Next Dose: Sevelamer (Renvela 800 mg oral [...] fentanyl Medications Given This Visit Future Orders ?VL Ankle Brachial Indices? Order Date:09/03/24?- Complete by?12/02/24 Vital Signs Height 173 cm Weight 89.81 kg BMI 30.01 kg/m2 Blood Pressure 82 mm Hg/48 mm Hg Temperature Pulse Rate 107 bpm Respiratory Rate 02 Sat Mode of Delivery 96 %/ You can now view a summary of your hospital visit from the comfort of your home through a free online portal called [employer]Me. [employer] is a website that allows you to securely view your medical information including discharge summary, medications and follow-up visits. ??You can alsosend a secure electronic message to your doctor???s office to request appointments, renew medications or just ask a question. You can enroll at [email or web address] or register during your next office [...] primary care provider, you may find a [facility] provider by calling [facility] Link at [phone]. [facility], in keeping with [facility] guidance, no longer requires face masks for staff, patientsor visitors in most situations. Similar to time spent indoors at other locations, there is the chance that you were exposed to respiratory viruses during your time with us (such as flu or COVID-19).? If you develop symptoms concerning for a viral respiratory infection, please seek testing (and treatment if indicated) from your medical provider or home test kit. For information about the plan of care [...] Team Personnel Name: Wild Santos RN Position: [facility] RN Member Role: Primary Care Nurse Name: Lucy Garcia RN Position: [facility] ED RN W/OE and Tasks Member Role: Primary Care Nurse Name: Julianna Mazariegos RN Position: [facility] RN Member Role: Primary Care Nurse Name: Simin Rosario RN Position: [facility] RN Member Role: Primary Care Nurse Name: Janie Kunz RN Position: [facility] RN Member Role: Primary Care Nurse Name: Krishna Tapia MD Position: [facility] Outreach Member Role: PCP Address: Address: [address] [place] [address] Facundo Krishna Tapia MD [place], [place] - [place] Name: Miguelangel Cancino MD Position: [facility] Renal MD Member Role: Lifetime Consulting Physician Address: Address: [address] [place] [address] [address] [facility] [place], [place] - [place] Name: Filomena Austin RN Position: [facility] RN Member Role: Primary Care Nurse Name: Faby Guido RN Position: [facility] RN Member Role: Primary Care Nurse Name: Maddy Skelton Position: [facility] RN Member Role: Primary Care Nurse Name: Elise Yao LPN Position: S RN Member Role: Primary Care Nurse Name: Barak Shaw DO Position: [facility] Renal MD Member Role: Lifetime Consulting Physician Address: Address: [address] [facility] [place] [address]- [place] Name: Rody Tayla Position: [facility] Outreach Member Role: Lifetime Consulting Physician Name: Niki Montes RN Position: [facility] RN Member Role: Primary Care Nurse Name: Stella Calhoun RN Position: [facility] RN Member Role: Primary Care Nurse Name: Wes Lezama Position: [facility] Associate Professional Member Role: Lifetime Consulting Provider Address: Address: [address] [place] [address]- Name: Kinjal Macias RN Position: [facility] RN Member Role: Primary Care Nurse Name: Estephania Pizano RN Position: [facility] ED RN W/OE and Tasks Member Role: Primary Care Nurse Name: Zita Barrow RN Position: [facility] SN RN Member Role: Primary Care Nurse Name: Alexis Brooke MD Position: [facility] Renal MD Member Role: Lifetime Consulting Physician Address: Address: [address] [place] [address] [address] [facility] [place] [place] [address]- Name: Chantelle Villareal RN Position: [facility] RN Member Role: Primary Care Nurse Name: Brisa Michaels RN Position: [facility] RN Member Role: Primary Care Nurse Name: London Chau RN Position: [facility] RN Member Role: Primary Care Nurse Name: Ana Schafer RN Position: [facility] RN Member Role: Primary Care Nurse Name: Liz Aguilera RN Position: [facility] Outreach Member Role: Lifetime Consulting Physician Name: Sudhir Chan Position: [facility] Outreach Member Role: Lifetime Consulting Physician Name: Roselia Crain RN Position: [facility] RN Member Role: Primary Care Nurse Name: Jorge Crews RN Position: [facility] RN Member Role: Primary Care Nurse Address: Address: [address] [place] [address]- [place] Name: Marcelo oJy MD Position: [facility] Renal MD Member Role: Lifetime Consulting Physician Address: Address: [address] [place] [address] [facility] [place], [place] [address] Name: Nell Copeland RN Position: S RN Member Role: Primary Care Nurse Name: Star Hagen RN Position: S RN Member Role: Primary Care Nurse Name: Odalis Roy RN Position: [facility] SN RN Member Role: Primary Care Nurse Name: Merline Carlson RN Position: S RN Member Role: Primary Care Nurse Name: Nupur Black RN Position: [facility] RN Member Role: Primary Care Nurse Name: Serena Allen RN Position: [facility] Onco RN Member Role: Primary Care Nurse Name: Maura Tsang RN Position: [facility] RN Member Role: Primary Care Nurse Care Team Related Persons Name: SHILPAFLORENCIADARLENE KAYCE Address: [address] [place] [address] Name: SANTIAGO NAZARIO Address: [address] [place] [address]
--- OUTSIDE RECORDS SUMMARY | 2024-01-23 20:43 | XMS_ITS | Continuity of Care Document ---
Author Organization [facility] ter Address [address] [place] [id number]- Care Team Providers Care Security Incident Handler Name Role Phone Krishna Tapia MD Primary Care Physician [phone] Encounter [facility] ACCT R [id number] Date(s): 09/29/23 - 10/01/[address] [address]- Encounter Diagnosis Facial droop(Final) - 09/29/23 Discharge Disposition: A-D/C Home Attending Physician: Genoveva Catalan MD Admitting Physician: Yvonne Correa MD Referring Physician: Not on Staff, Referring [...] 06/22/22 6:51:00 EDT, Capsule, [facility], Partial fill upon patient [...] Route to Pharmacy Electronically, [facility], Partial fill upon patient request if the prescription is for a schedul... Start Date: 08/29/22 Stop Date: 09/28/22 Status: Ordered gabapentin 300 mg oral capsule 300 mg, Capsule, By Mouth, 10/01/23 9:00:00 EST Start Date: 10/01/23 Stop Date: 10/01/23 Status: Completed Humalog 100 u/ml subcutaneous injection See Instructions, Subcutaneous InfusiON INSULIN PUMP, 0 Refills, Maintenance, 12/16/22 13:45:00 EDT, Partial fill upon patient request if the prescription is for a schedule II opioid drug. Start Date: 12/16/22 Status: Ordered magnesium oxide 400 mg oral tablet See Instructions, TAKE 2 TABLETS BY MOUTH EVERY DAY, # 180 tablet, 1 Refills, [facility] [id number], 173,cm, 01/24/22 16:16:00 EDT, Height, 91.1, kg, [...] EST, Tablet Start Date: 07/30/21 Status: Ordered Metoprolol XL Tablet 100 mg, XL Tablet, By Mouth, 10/01/23 9:00:00 EST Start Date: 10/01/23 Stop Date: 10/01/23 Status: Completed metoprolol 50 mg oral tablet, extended release [...] Dry Weight Start Date: 06/24/23 Status: Ordered predniSONE 20 mg oral tablet 3 tablet = 60 mg, By Mouth, Daily, for 7 days, # 21 tablet, 0 Refills, Acute 10/08/23 12:12:00 EST,10/01/23 12:12:00 EST, Tablet, [facility], Partial fill upon patient request if the prescription is for a schedule II opioid drug., 173, cm,... Start Date: 10/01/23 Stop Date: 10/08/23 Status: Ordered Renvela 800 mg oral tablet 1 tablet = 800 mg, By Mouth, 3 times a day with meals, Maintenance, 03/09/21 13:29:00 EDT Start Date: 03/09/21 Status: Ordered sacubitril-valsartan 24 mg-26 mg oral tablet 1 tablet, By Mouth, 2 times a day, # 180 tablet, 4 Refills, Maintenance, 06/24/23 12:07:00 EDT, Tablet, [facility], Partial fill upon patient request if [...] 1 Refills, Maintenance, 10/01/23 11:49:00 EST, Capsule, [facility], Partial fill upon patient request if [...] List Condition Confirmation Course Effective Dates Status [facility] atus Informant Chronic kidney disease (CKD) Confirmed Active Chronic systolic congestive heart failure Confirmed Active CAD (coronary artery disease) Confirmed Active Diabetes mellitus type 1 Confirmed Active ESRD on dialysis 1 Confirmed Active Foot pain Confirmed Active Hypertension Confirmed Active Neuropathy Confirmed Active Obese class I Confirmed Active Transplanted kidney present Confirmed Active [place] [facility] Tue, Thurs, and Sat Results Radiology Reports * Exam Date Time Procedure Performing Provider Status 09/30/23 8:[address] Angio Neck Amanda Parisi; Ruby (Verif ied) Notes: (CT Angio Neck) Reason For Exam: hemiparesis;Other: RESULT: CT Angio Neck CT Angio Head, CT Angio Neck Reason: Hemiparesis; Clinical Question(s): Infarction; Special Instructions: Ok from renal to give contrast; Order Comment: / Infarction TECHNIQUE: CT angiogram of the head and neck was performed after bolus administration of intravenous contrast. 75 mL of Omnipaque 300 was administered intravenously. Coronal and sagittal MIP reformatted images were obtained. Additional 3-D images were created on a separate workstation under concurrent supervision by the attending radiologist. All stenoses are measured using NASCET criteria. Weight-based protocol using automatic tube modulation was used to optimize exposure parameters. RADIATION DOSE PARAMETERS: CTDIvol Head: 40.56 mGy, DLP Head: 1236 mGy*cm. COMPARISON: Noncontrast CT head performed concurrently. CTA Head and Neck 06/16/2022. FINDINGS: CTA OF THE NECK: Arch: There is a three vessel aortic arch. The origins of the supra aortic vessels are patent. Right carotid system: The common carotid and cervical internal carotid arteries are patent. There is calcified atherosclerotic plaque at the carotid bifurcation, but no ICA stenosis (0%) by NASCET criteria. There is no dissection or aneurysm. Left carotid system: The common carotid and cervical internal carotid arteries are patent. There iscalcified atherosclerotic plaque at the carotid bifurcation, but no ICA stenosis (0%) by NASCET criteria. There is no dissection or aneurysm. There is a right-dominant vertebral artery system. Right vertebral: There is calcified atherosclerotic plaque along the V1 segment but no significant stenosis. There is no dissection or aneurysm. Left vertebral: No significant stenosis. No evidence of dissection or aneurysm. Other: Soft tissues and bones: No evidence of lymphadenopathy or mass. The thyroid is unremarkable. Visualized lungs are blurred by motion artifact, without significant superimposed airspace opacity. Mild degenerative changes of the cervical spine are noted, without acute osseous abnormality. CTA OF THE HEAD: Anterior circulation: Bilateral intracranial ICAs demonstrate atherosclerotic calcification, without stenosis. Bilateral OLVIN and MCA branches are patent. There is no significant stenosis, proximal cutoff, aneurysm, or vascular malformation. Posterior circulation: Bilateral intracranial vertebral arteries are patent, with trace atherosclerotic calcification in the right V4 segment but no stenosis. The basilar artery, and bilateral superior cerebellar and posterior cerebral branches are patent. There is contribution to both upholstery technician with mildly hypoplastic P1 segments on each side, particularly on the right. There is no significant stenosis, proximal cutoff, aneurysm, or vascular malformation. Veins: Major dural venous sinuses are patent. Other: Soft tissues and bones: No midline shift or effacement of the basal cisterns. No space-occupying hemorrhage. No territorial loss of fuller-white matter differentiation. Orbits are unremarkable. There is mild scattered mucosal thickening in the paranasal sinuses without fluid levels. Mucous retention cyst is present at the right sphenoid sinus. Mastoids are clear. IMPRESSION: No proximal occlusion or high grade stenosis in the major arteries of the head and neck. WSN: [id number] Ordering Physician: Jaci Louie Dictated By: Kalie Macias MD Dictated Date/Time: 10/01/23 8:32 am Reviewed By: Kalie Macias MD Signed By: Kalie Macias MD Signed Date/Time: 10/01/23 8:32 am Transcribed By: AMY Transcribed Date/Time: 10/01/23 8:29 am * Exam Date Time Procedure Performing Provider Status 09/30/23 8:[address] Angio Head Amanda Parisi; Auth (Verif ied) Notes: (CT Angio Head) Reason For Exam: Hemiparesis RESULT: CT Angio Head CT Angio Head, CT Angio Neck Reason: Hemiparesis; Clinical Question(s): Infarction; Special Instructions: Ok from renal to give contrast; Order Comment: / Infarction TECHNIQUE: CT angiogram of the head and neck was performed after bolus administration of intravenous contrast. 75 mL of Omnipaque 300 was administered intravenously. Coronal and sagittal MIP reformatted images were obtained. Additional 3-D images were created on a separate workstation under concurrent supervision by the attending radiologist. All stenoses are measured using NASCET criteria. Weight-based protocol using automatic tube modulation was used to optimize exposure parameters. RADIATION DOSE PARAMETERS: CTDIvol Head: 40.56 mGy, DLP Head: 1236 mGy*cm. COMPARISON: Noncontrast CT head performed concurrently. CTA Head and Neck 06/16/2022. FINDINGS: CTA OF THE NECK: Arch: There is a three vessel aortic arch. The origins of the supra aortic vessels are patent. Right carotid system: The common carotid and cervical internal carotid arteries are patent. There is calcified atherosclerotic plaque at the carotid bifurcation, but no ICA stenosis (0%) by NASCET criteria. There is no dissection or aneurysm. Left carotid system: The common carotid and cervical internal carotid arteries are patent. There iscalcified atherosclerotic plaque at the carotid bifurcation, but no ICA stenosis (0%) by NASCET criteria. There is no dissection or aneurysm. There is a right-dominant vertebral artery system. Right vertebral: There is calcified atherosclerotic plaque along the V1 segment but no significant stenosis. There is no dissection or aneurysm. Left vertebral: No significant stenosis. No evidence of dissection or aneurysm. Other: Soft tissues and bones: No evidence of lymphadenopathy or mass. The thyroid is unremarkable. Visualized lungs are blurred by motion artifact, without significant superimposed airspace opacity. Mild degenerative changes of the cervical spine are noted, without acute osseous abnormality. CTA OF THE HEAD: Anterior circulation: Bilateral intracranial ICAs demonstrate atherosclerotic calcification, without stenosis. Bilateral OLVIN and MCA branches are patent. There is no significant stenosis, proximal cutoff, aneurysm, or vascular malformation. Posterior circulation: Bilateral intracranial vertebral arteries are patent, with trace atherosclerotic calcification in the right V4 segment but no stenosis. The basilar artery, and bilateral superior cerebellar and posterior cerebral branches are patent. There is contribution to both upholstery technician with mildly hypoplastic P1 segments on each side, particularly on the right. There is no significant stenosis, proximal cutoff, aneurysm, or vascular malformation. Veins: Major dural venous sinuses are patent. Other: Soft tissues and bones: No midline shift or effacement of the basal cisterns. No space-occupying hemorrhage. No territorial loss of fuller-white matter differentiation. Orbits are unremarkable. There is mild scattered mucosal thickening in the paranasal sinuses without fluid levels. Mucous retention cyst is present at the right sphenoid sinus. Mastoids are clear. IMPRESSION: No proximal occlusion or high grade stenosis in the major arteries of the head and neck. WSN: [id number] Ordering Physician: Jaci Louie Dictated By: Kalie Macias MD Dictated Date/Time: 10/01/23 8:32 am Reviewed By: Kalie Macias MD Signed By: Kalie Macias MD Signed Date/Time: 10/01/23 8:32 am Transcribed By: AMY Transcribed Date/Time: 10/01/23 8:29 am * Exam Date Time Procedure Performing Provider Status 09/30/23 1:[address] Head/Brain W/O Contrast Kan Moon; Modified Notes: (CT Head/Brain W/O Contrast) Reason For Exam: Neuro deficit, acute, stroke suspected;Other: RESULT: CT Head/Brain W/O Contrast CT Head/Brain W/O Contrast INDICATION: Pt coming in with stroke like symptoms since Friday. R arm weakness and pain along withR sided facial pain; Reason: Other:; Neuro deficit, acute, stroke suspected; Clinical Question(s): Other:; Hematoma Infarction TECHNIQUE: Noncontrast head CT using axial technique and reconstructed in axial and coronal planes.Iterative reconstruction techniques are used to optimize dose and image quality. CTDIvol Head: 45.50 mGy, DLP Head: 772 mGy*cm. COMPARISON: 06/25/2022 FINDINGS: Sales Representative Door To Door view findings, lines and tubes: None. BRAIN AND EXTRA-AXIAL SPACES: No parenchymal hemorrhage, midline shift, or mass effect. Fuller-white matter differentiation is wellpreserved. No acute infarct. Negative insular ribbon sign. Atherosclerotic vascular calcification of the carotid arteries but negative hyperdense vessel sign. Ventricles, sulci, and basilar cisterns are normal. No white matter lesions. No subarachnoid hemorrhage. No subdural or epidural collection. CALVARIUM, SKULL BASE, AND SOFT TISSUES: No fractures or suspicious bony lesions. Mild mucosal thickening throughout the inferior aspect of the bilateral maxillary and throughout the bilateral ethmoid air cells. There is a small retention cyst or polyp in the right sphenoid sinus measuring up to 2.5 cm unchanged. Otherwise included paranasal sinuses and mastoid air cells are clear. Visualized orbits and globes are intact. The extracranial soft tissues are unremarkable. IMPRESSION: No acute intracranial pathology. Mild paranasal sinus disease. I have personally reviewed the images and I agree with this report. WSN: [id number] Ordering Physician: Glen Escamilla Dictated By: Marie Mao MD Dictated Date/Time: 09/30/23 7:06 am Reviewed By: Rogelio Arce MD Signed By: Rogelio Arce MD Signed Date/Time: 09/30/23 7:11 am Transcribed By: AMY Transcribed Date/Time: 09/30/23 2:16 am Vital Signs Most recent to oldest [Reference Range]: 1 2 3 Height 173 cm (10/01/23 10:24 AM) 173 cm (10/01/23 6:31 AM) 173 cm (10/01/23 3:42 AM) Weight 102.5 kg (09/30/23 5:12 AM) 90.5 kg (09/29/23 9:29 PM) 90.5 kg (09/29/23 9:29 PM) Oxygen Saturation [94-100 %] 99 % (10/01/23:24 AM) 99 % (10/01/23:31 AM) 99 % (10/01/23 3:42 AM) Pulse Rate [55-90 bpm] 67 bpm (10/01/23 10:24 AM) 67 bpm (10/01/23 8:09 AM) 67 bpm (10/01/23 6:31 AM) Body Mass Index [18.5-24.99 kg/m2] 34.25 kg/m2 *>HHI* (09/30/23 5:12 AM) 30.24 kg/m2 *>HHI* (09/29/23 9:29 PM) 30.24 kg/m2 *>HHI* (09/29/23 8:34 PM) Blood Pressure [90-138/55-84 mm Hg] 120/60mm Hg (10/01/23 10:24 AM) 119/72mm Hg (10/01/23 8:09 AM) 119/72mm Hg (10/01/23 6:31 AM) Respiratory Rate [16-30 br/min] 18 br/min (10/01/23 10:25 AM) 18 br/min (10/01/23 10:25 AM) 18 br/min (10/01/23 10:24 AM) Temperature [96.8-100.4 DegF] 97.6 DegF (10/01/23 10:24 AM) 97.5 DegF (10/01/23 6:31 AM) 97.4 DegF (10/01/23 3:42 AM) Mode of Delivery (Oxygen) Room air (10/01/23 10:24 AM) Room air (10/01/23 6:31 AM) Room air (10/01/23 3:42 AM) Blood pressure sites Arm, right (10/01/23 10:24 AM) Arm, right (10/01/23 6:31 AM) Arm, right (10/01/23 3:42 AM) Temperature Route Oral (10/01/23 10:24 AM) Oral (10/01/23 6:31 AM) Oral (10/01/23 3:42 AM) Dry Weight 90.5 kg (09/30/23 5:12 AM) 90.5 kg (09/29/23 9:29 PM) 90.5 kg (09/29/23 9:29 PM) Weight Obtained Via Patient/family state d (09/29/23 8:34 PM) Dry Weight Obtained Via Patient/family s tated (09/29/23 8:34 PM) Social History Social History Type Response Smoking Status Never smoker entered on: 01/06/17 Sex Male Implantable Device List Procedure Provider Procedure Date Device Type Site Creation Arteriovenous Graft Upper Extre Josef Adams MD 03/12/21 Unknown Arm Left Device Identifier Serial Number Lot or Batch Number Manufacturing Date Expiration Date Distinct Identification Code MRI Safety Implantable Status Assigning Authority Unknown [id number] Unknown Unknown 09/26/25 Unknown Unknown Active Unknown Note * Event Display: Lab Data & Pts Medical History Authored Date: [id number] * Annita Marcos RN: PERFORM Event Display: Discharge/Transfer Note Hospital Authored Date: [id number] Nursing Discharge Note Entered On: 10/01/2023 12:53 EST Performed On: 10/01/2023 12:52 EST by Annita Marcos RN Nursing Discharge Note 2 Discharge Time : 10/01/2023 12:52 EST Discharge Level of Care at Discharge : Home/Fci/Foster Care Patient Left Unit Via : Wheelchair Patient Accompanied Off Unit with : Responsible adult DC Instructions Provided & Signed by Pt : Yes Patient Understands D/C Instructions : Yes Patient Instructions Discharge Signed : Yes Did Pt have Specialty Bed or Wound Vac : No Annita Marcos RN - 10/01/2023 12:52 EST * Rajiv King MD: PERFORM, MODIFY, MODIFY, MODIFY, MODIFY, MODIFY, MODIFY, MODIFY, MODIFY, MODIFY, MODIFY, MODIFY, MODIFY, MODIFY, MODIFY, MODIFY Event Display: Discharge/Transfer Note Hospital Authored Date: Patient: ??RONI GARZA ? Age:??53 Years?Sex:??Male?:??1970?? 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 Medications Started Prednisone 60mg for once daily for 7 days Tacrolimus 0.5mg once daily Medications Discontinued Mycophenolate Doses Changed None Allergies Allergies ?(Active and Proposed Allergies Only) [...] Unknown, Onset: Unknown) ?Reactions: mind races ? PCP Follow-Up/Heads-Up Please monitor any adverse effects of new medication tacrolimus. Future Appointments Friday 4:30 PM EST ?? Where: [facility] [address] [place] [address]- Status: Pending Friday 11:30 AM EDT ?? With: Kailey GREENWOOD, Rachel Cross Where: [facility] [address] [place] [address]- Status: Pending Hospital Course 53-year-old male with PMH significant for CAD, HTN, HLD, Type 1 DM, peripheral neuropathy with spinal cord stimulator, ESRD s/p failed donor renal transplant, on dialysis, and DVT s/p IVC filter who presented for evaluation of right shoulder/neck discomfort, and now with right facial weakness admitted for??ruling out of acute ischemic stroke. CT/CTA head and neck no LVO. Patient was not able to tolerate MRI due to claustrophobia. Neurology assessed patient and determined symptoms are more likely Le's Palsy than stroke. Renal also consulted patient for dialysis and transitioned patient from mycophenolate to tacrolimus for future transplant preparation. 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 Facial droop (R29.810):?? Headache (R51.9):?? Neck pain (M54.2):?? Le's Palsy Patient has had 3 days duration of acute neck pain headache??and??right-sided facial droop now. On exam does have??upper motor neuron features but also has the??right??sided??forehead fold??mild decrease which is suggestive of lower motor neuron palsy. No??ear canal issues to suggest??Melania Dewey. CT and CTA scan of the head shows no??acute abnormality, no LVO Patient attempted MRI but could not tolerate procedure lyme AB negative A1c 7.1 and lipid panel shows LDL of 49 Neurology consulted and determined patient likely has Le's Palsy, albeit MRI not done to definitively rule out stroke Neck pain likely musculoskeletal with reproducible pain and paraspinal muscle tension on exam ?? Plan: - Start Prednisone 60 mg once daily for 7 days - continue with aspirin 81 mg daily - continue home statin - continue home gabapentin for neck pain - follow up with neurology stroke clinic outpatient ?? ESRD on dialysis (N18.6):?? Transplanted kidney present (Z94.0):??On TTS??hemodialysis Rtane consulted. Cleared for??receiving??contrast for CTA from renal point of view. Facilitated HD on 09/30. Plan: Continue home medications of sevelamer, calcitriol, cholecalciferol??and??zirconium. tacrolimus 0.5 mg daily to prevent desensitization for future transplant ?? Neuropathy (G62.9):??Patient has a??spinal neurostimulator Model number is compatible with??MRI brain but not MRA neck Patient has a remote with him in order to switch it off. -Continue home gabapentin ?? Diabetes mellitus type 1 (E10.9):??Patient??has a??insulin pump Endocrinology consultation??for management of the pump- patient refused to stop using pump during admission. Hypoglycemia emergency measures in place. ? CAD (coronary artery disease) (I25.10):?? Chronic systolic congestive heart failure (I50.22):?? Hypertension (I10):?? Euvolemic. Okay to continue with home Entresto Lasix and metoprolol. Continue aspirin and statin. ?? DVT (deep venous thrombosis) (I82.409):??S/p IVC filter ? Vital Signs?? Temperature: 97.6 DegF (10/01/23 10:24:00) Temperature Route: Oral (10/01/23 10:24:00) Pulse Rate: 67 bpm (10/01/23 10:24:00) Respiratory Rate: 18 br/min (10/01/23 10:25:00) Respiratory Rate: 18 br/min (10/01/23::) Systolic Blood Pressure: 120 mm Hg (10/01/23 10:24:00) Diastolic Blood Pressure: 60 mm Hg (10/01/23 10::) Blood pressure sites: Arm, right (10/01/23::) Mean Arterial Pressure: 80 mm Hg (10/01/23::) Pulse Pressure: 60 mm Hg (10/01/23 10::) Oxygen Saturation: 99 % (10/01/23::) Mode of Delivery (Oxygen): Room air (10/01/23::) Early Warning Score: 5 (10/01/23 10:38:29) ? . Physical Exam Constitutional: Alert, in no distress. Ear, Nose and Throat: Oropharynx clear, mucous membranes moist. Respiratory: Clear to auscultation. No wheezing, rales or rhonchi. Cardiovascular: S1 S2 regular. No murmurs, rubs or gallops. Gastrointestinal: Abdomen soft, non-tender, non-distended. Normal bowel sounds. Skin: No rashes or lesions. No petechiae or purpura.?? Musculoskeletal:??R paraspinal tenderness on neck.??Normal range of motion. Heme/Lymphatics/Immun: Palpation of neck reveals no swelling or tenderness of neck nodes. Psychiatric:??flat affect ?? Neuro Exam Mental Status: alert and oriented to person, place, month, and year fluent and appropriate speech, no dysarthria able to identify simple objects able to follow simple commands ?? Cranial nerves:?? PERRL EOMI no nystagmus VFF equal light touch sensation slight right facial droop, forehead movement??intact no ptosis noted bilaterally hearing intact to voice ?? muscle strength: appropriate muscle tone and bulk no tremors 5/5 LUE, 4/5 RUE limited by pain 5/5 LE? Sensation decreased sensation in hands and feet 2/2 neuropathy ?? Cerebellum Finger to nose intact bilaterally Gait deferred for safety?? Consultants Neurology - Dr. Arevalo Renal - Dr. Joy Pending Results Add On Lab Order ordered on 09/30/2023 MRI Brain W/O Contrast ordered on 09/30/2023 Patient Education Titles Tacrolimus Oral Capsule?? Preventing Recurrent Stroke: Eating Healthy?? Preventing Recurrent Stroke: Getting Active?? Preventing Recurrent Stroke: Eating Healthy?? Prednisone Oral Tablet?? Le???s Palsy?? Home Health Face to Face ^HomeHealthFTF Results Discharge Labs BLOOD BANK Blood Type B Positive ()?? 09/29/2023 21:40 Antibody Screen Negative ()?? 09/29/2023 21:40 ?? BLOOD COUNT & DIFF WBC 3.5 k/mm3 (Low)?? 09/30/2023 11:11 RBC 3.46 m/mm3 (Low)?? 09/30/2023 11:11 Hgb 10.1 Gm/dL (Low)?? 09/30/2023 11:11 Hct 33.3 % (Low)?? 09/30/2023 11:11 MCV 96.2 femtoliters (High)?? 09/30/2023 11:11 MCH 29.2 pg ()?? 09/30/2023 11:11 MCHC 30.3 g/dL (Low)?? 09/30/2023 11:11 Platelet Count 180 k/mm3 ()?? 09/30/2023 11:11 RDW-SD 53.3 femtoliters (High)?? 09/30/2023 11:11 MPV 9.2 femtoliters (Low)?? 09/30/2023 11:11 Nucleated RBC (Automated) 0.0 #/100 WBC'S ()?? 09/30/2023 11:11 Abs. NRBC 0.0 k/mm3 ()?? 09/30/2023 11:11 Abs. Neut 2.6 k/mm3 ()?? 09/29/2023 21:51 Abs. Lymph 0.9 k/mm3 ()?? 09/29/2023 21:51 Abs. [place] 0.6 k/mm3 ()?? 09/29/2023 21:51 Abs. Eo 0.2 k/mm3 ()?? 09/29/2023 21:51 Abs. Baso 0.0 k/mm3 ()?? 09/29/2023 21:51 Neut % 60.8 % ()?? 09/29/2023 21:51 Lymph % 21.6 % ()?? 09/29/2023 21:51 [place] % 13.0 % (High)?? 09/29/2023 21:51 Eos % 3.9 % ()?? 09/29/2023 21:51 Baso % 0.7 % ()?? 09/29/2023 21:51 Imm Gran 0.0 % ()?? 09/29/2023 21:51 Abs. Imm Gran 0.0 k/mm3 ()?? 09/29/2023 21:51 ?? CHEM GENERAL Sodium 136 mmol/L ()?? 09/30/2023 11:11 Potassium 5.6 mmol/L (High)?? 09/30/2023 11:11 Chloride 98 mmol/L ()?? 09/30/2023 11:11 Bicarbonate Level 24 mmol/L ()?? 09/30/2023 11:11 Anion Gap 14 ()?? 09/30/2023 11:11 Glucose Level 138 mg/dL (High)?? 09/29/2023 21:51 Glucose, POC 103 mg/dL (High)?? 10/01/2023 10:36 Hemoglobin A1C (Monitoring) 7.1 % (High)?? 09/29/2023 21:51 BUN 53 mg/dL (High)?? 09/29/2023 21:51 Creatinine-Blood 10.5 mg/dL (High)?? 09/29/2023 21:51 Estimated GFR Creatinine 5 ML/MIN/1.73 M2 ()?? 09/29/2023 21:51 Calcium 9.4 mg/dL ()?? 09/29/2023 21:51 AST (SGOT) 32 units/L ()?? 09/29/2023 21:51 ? COAG INR 1.0 ()?? 09/29/2023 21:51 Protime (PT) 10.3 seconds ()?? 09/29/2023 21:51 APTT 24.5 seconds ()?? 09/29/2023 21:51 ? LIPID STUDIES Cholesterol 135 mg/dL ()?? 09/29/2023 21:51 Triglycerides 134 mg/dL ()?? 09/29/2023 21:51 HDL Cholesterol 59 mg/dL ()?? 09/29/2023 21:51 LDL Cholesterol 49 mg/dL ()?? 09/29/2023 21:51 Non HDL Cholesterol 76 mg/dL ()?? 09/29/2023 21:51 ? SEROLOGY INF DISEASE Lyme Disease Ab Screen NEGATIVE ()?? 09/29/2023 21:51 ? URINE OTHER Est Creatinine Clearance 7.90 mL/min ()?? 09/30/2023 00:58 ? 30??minutes spent on discharge * Genoveva Catalan MD: PERFORM Event Display: Discharge/Transfer Note Hospital Authored Date: [id number] Pt was seen and examined at bedside, discussed the ??case and its management with resident. Agree with documentation above. ?? * Hemant JESSICA Annita: PERFORM Event Display: Patient Education/Instruction Authored Date: [id number] Inpatient Adult Discharge Instructions. [place] [id number] Name: RONI WANDER : 1970?? Visit: 09/29/2023 20:28?? Current Date: 10/01/2023 11:56 ?? Account: [id number]?? Inpatient Adult Discharge Instructions We would like [...] and their families. Surveys are administered by [employer] ?? If further treatment with your primary care physician or another doctor is recommended, it is important for you to keep the appointment. Call your primary care physician or return to the Emergency Department immediately if your condition worsens, fails to improve, or new symptoms develop. If you need to find a doctor, you can call [facility] LiquidTalk Link for a referral at [phone] or toll free at [phone] ([phone]) or log in to [email or web address].. ?? [facility], in keeping with [facility] guidance, no longer requires face masks for [...] a health care bam of your choosing. [employer] is a website that allows you to securely view your medical information including your hospital discharge summary, office visit summaries, medications and follow-up visits. You can also request appointments, renew medications, and request access to your medical information using a health care bam of your choosing, or just ask a question. You can enroll at [email or web address] or register during your next office visit. You have been discharged from [facility], Patient Care Unit: D3B??. If you have any questions regarding these instructions, including results of studies pending, afteryou leave, please call us and we will be happy to assist you 17/03. [facility] Your Care Team Attending Physician Genoveva Catalan MD?? Consulting Providers Genoveva Catalan MD?? Discharging Providers Rajiv King MD Reason for Your Visit facial palsy, BANSAL?? Your Diagnosis CAD (coronary artery disease) Chronic systolic congestive heart failure Diabetes mellitus type 1 DVT (deep venous thrombosis) ESRD on dialysis Headache Hypertension Neck pain Neuropathy Obese class I Transplanted kidney present Tests Performed Below is a partial list of the tests performed during your hospitalization. You may have had other tests and procedures not included in this list. Please discuss all test results with your provider. AST Basic Metabolic Panel CBC CBC w/ Differential GLUCOSE POC HEMOGLOBIN A1C LIPID PANEL Lyme Disease Ab Screen Lytes PT (INR) PTT Type and Screen Brain MRI W/O Contrast?-- Results Pending -- CT Angio Head CT Angio Neck CT Head/Brain W/O Contrast You will be contacted within 72 hours with your results. Add On Lab Order?? MRI Brain W/O Contrast (Brain MRI W/O Contrast)?? Primary Care Provider Krishna Tapia MD? Discharge Vitals Temperature: 97.6 DegF Height: 173 cm Pulse Rate: 67 bpm Weight: 102.5 kg Respiratory Rate: 18 br/min Body Mass Index:??34.25 kg/m2??Critical Respiratory Rate: 18 br/min Body surface area: 2.22 Systolic Blood Pressure: 120 mm Hg ?? Diastolic Blood Pressure: 60 mm Hg ?? Oxygen Saturation: 99 % ?? Studies Pending All studies ordered during this hospital stay have been completed unless listed below. Please discuss all pending results with your provider listed above in these instructions. ?? Add On Lab Order?? MRI Brain W/O Contrast (Brain MRI W/O Contrast)?? What to do next Instructions From Your Doctor ?? Orders? 10/01/23 11:51:00 EST?? Scheduled Follow-Up Appointments Friday 4:30 PM EST ?? Where: [facility] [address] [place] [address]- Status: Pending Friday 11:30 AM EDT ?? With: Kailey GREENWOOD, Rachel Where: [facility] [address] [place] [address]- Status: Pending Discharge Medications RONI GARZA :1970 Visit Date:09/29/2023 Medications: Please continue your medications until treatment is completed or stopped by your provider. Medications not listed below should be discontinued. Discuss any questions related to medications with your provider. What How Much When Why Instructions Next Dose New Tacrolimus (tacrolimus 0.5 mg oral capsule) 0.5 Milligram Oral Daily Refills: 1 Pickup at [facility] 10/02/23 9AM Unchanged Albuterol (albuterol 0.083% inhalation solution) 3 Milliliter Inhalation Every 4 hours as needed for Wheezing/Shortness of Breath Duration: 30 Days As needed Unchanged Aspirin (aspirin 81 mg oral delayed release tablet) 1 tab(s) Oral Daily Duration: 30 Days 10/02/23 9AM Unchanged Atorvastatin (atorvastatin 40 mg oral tablet) 1 tab(s) Oral Daily 10/02/23 9AM Unchanged Brimonidine Ophthalmic (brimonidine 0.2% ophthalmic solution) 1 Drops Both eyes Twice a day 10/01/23 9PM Unchanged Calcitriol (calcitriol 0.5 mcg oral capsule) 3 capsule Oral Every Friday, and Friday Duration: 30 Days resume as prescribed Unchanged Cyanocobalamin (cyanocobalamin 1000 mcg oral tablet) 1 tab(s) Oral Daily 10/02/23 9AM Unchanged Durable Medical Equipment (Compression Stockings) See instructions Venous insufficiency of both lower extremities surgical, knee length 20-30 mm Hg ?? Unchanged Durable Medical Equipment (Omni Pod Insulin Pump) Unchanged Fluticasone-Salmeterol (Advair Diskus 250 mcg-50 mcg inhalation powder) 1 puff(s) Inhalation Twice a day 10/01/23 9PM Unchanged Folic Acid (folic acid 1 mg oral tablet) 1 tab(s) Oral Daily 10/02/23 9AM Unchanged Furosemide (furosemide 80 mg oral tablet) 1 tab(s) Oral Daily 10/02/23 9AM Unchanged Gabapentin (gabapentin 300 mg oral capsule) 1 capsule Oral 3 times a day Duration: 30 Days 10/01/23 3PM Unchanged Insulin Lispro (Humalog 100 u/ ml subcutaneous injection) See instructions Subcutaneous InfusiON INSULIN PUMP ?? Unchanged Latanoprost Ophthalmic (Xalatan 0.005% solution) 1 Drops Both eyes Daily at Bedtime 10/01/23 9PM Unchanged Magnesium Oxide (magnesium oxide 400 mg oral tablet) See instructions TAKE 2 TABLETS BY MOUTH EVERY DAY ?? Resume as prescribed Unchanged Melatonin (melatonin 3 mg oral tablet) 3 Milligram Oral Daily at Bedtime as needed for as needed for insomnia 10/01/23 9PM Unchanged Metoprolol (metoprolol 50 mg oral tablet, extended release) 2 tab(s) Oral Daily Duration: 90 Days 10/02/23 9AM Unchanged Miscellaneous Rx (MECLIZINE 25 MG TABLET) Oral 3 times a day 10/02/23 3PM Unchanged Miscellaneous Rx (Please discontinue clopidpogrel 75 mg daily.) See instructions See above ?? Unchanged Omeprazole (omeprazole 20 mg oral enteric coated capsule) 1 capsule Oral Daily 10/02/23 9AM Unchanged sacubitril-valsartan (sacubitril-valsartan 24 mg-26 mg oral tablet) 1 tab(s) Oral Twice a day Duration: 90 Days 10/01/23 9PM Unchanged Sevelamer (Renvela 800 mg oral tablet) 1 tab(s) Oral 3 times a day with meals With dinner Unchanged sodium zirconium cyclosilicate (sodium zirconium cyclosilicate 10 g oral powder for reconstitution) 10 gram Oral Friday, Friday and Friday dilute w/ 45 ml water, mix well, and drink immediately ?? Resume as prescribed Unchanged Tamsulosin (tamsulosin 0.4 mg oral capsule) 1 capsule Oral Daily at Bedtime 10/01/23 9PM Pharmacy Information [facility]: [address] [place] [address] [phone] ?? What How Much When Comments Stop Taking Clopidogrel (clopidogrel 75 mg oral tablet) 1 tab(s) Oral Daily Prescription Given During Visit Tacrolimus (tacrolimus 0.5 mg oral capsule) - 0.5 mg, By Mouth, Daily, # 90 tablet, 1 Refills, [facility], [address] [address] [phone]?? Laboratory Results Below is a partial list of the most recent Laboratory test results done prior to this discharge. You may have had other tests and procedures not included in this list. Please discuss all test resultswith your provider. Est Creatinine Clearance - 7.90 mL/min (09/30/2023) AST (09/29/2023) ???AST (SGOT) - 32 units/L Basic Metabolic Panel (09/29/2023) ???Sodium - 141 mmol/L???Potassium - 4.6 mmol/L???Chloride - 97 mmol/L???Bicarbonate Level - 29 mmol/L???Anion Gap - 15???Glucose Level - 138 mg/dL???BUN - 53 mg/dL???Creatinine-Blood - 10.5 mg/dL???Estimated GFR Creatinine - 5 ML/MIN/1.73 M2???Calcium - 9.4 mg/dL CBC (09/30/2023) ???WBC - 3.5 k/mm3???RBC - 3.46 m/mm3???Hgb - 10.1 Gm/dL???Hct - 33.3 %???MCV - 96.2 femtoliters???MCH - 29.2 pg???MCHC - 30.3 g/dL???Platelet Count - 180 k/mm3???RDW-SD - 53.3 femtoliters???MPV - 9.2 femtoliters???Nucleated RBC (Automated) - 0.0 #/100 WBC'S???Abs. NRBC - 0.0 k/mm3 CBC w/ Differential (09/29/2023) ???WBC - 4.3 k/mm3???RBC - 3.54 m/mm3???Hgb - 10.5 Gm/dL???Hct - 33.6 %???MCV - 94.9 femtoliters???MCH - 29.7 pg???MCHC - 31.3 g/dL???Platelet Count - 202 k/mm3???RDW-SD - 53.1 femtoliters???MPV - 9.4 femtoliters???Nucleated RBC (Automated) - 0.0 #/100 WBC'S???Abs. NRBC - 0.0 k/mm3???Abs. Neut - 2.6 k/mm3???Abs. Lymph - 0.9 k/mm3???Abs. [place] - 0.6 k/mm3???Abs. Eo - 0.2 k/mm3???Abs. Baso - 0.0 k/mm3???Neut % - 60.8 %???Lymph % - 21.6 %???[place] % - 13.0 %???Eos % - 3.9 %???Baso % - 0.7 %???Imm Gran - 0.0 %???Abs. Imm Gran - 0.0 k/mm3 GLUCOSE POC (10/01/2023) ???Glucose, POC - 103 mg/dL HEMOGLOBIN A1C (09/29/2023) ???Hemoglobin A1C (Monitoring) - 7.1 % LIPID PANEL (09/29/2023) ???Cholesterol - 135 mg/dL???Triglycerides - 134 mg/dL???HDL Cholesterol - 59 mg/dL???LDL Cholesterol - 49 mg/dL???Non HDL Cholesterol - 76 mg/dL Lyme Disease Ab Screen (09/29/2023) ???Lyme Disease Ab Screen - NEGATIVE Lytes (09/30/2023) ???Sodium - 136 mmol/L???Potassium - 5.6 mmol/L???Chloride - 98 mmol/L???Bicarbonate Level - 24 mmol/L???Anion Gap - 14 PT (INR) (09/29/2023) ???INR - 1.0???Protime (PT) - 10.3 seconds PTT (09/29/2023) ???APTT - 24.5 seconds Type and Screen (09/29/2023) ???Blood Type - B Positive???Antibody Screen - Negative Allergies (NKA means No Known Allergies) Ancef??( [...] Obese class I?? orchiopexy r/t undescended testicle?? Transplanted kidney present?? Education Materials Below is the list of Educational Leaflet Providered with your Discharge Instructions. Tacrolimus Oral Capsule?? Preventing Recurrent Stroke: Eating Healthy?? Preventing Recurrent Stroke: Getting Active?? Preventing Recurrent Stroke: Eating Healthy?? Prednisone Oral Tablet?? Le???s Palsy?? Valuables and Belongings I fully understand and agree that [facility] accepts no responsibility for all [...] to send valuables and belongings home. ?? Date for Pt to Sign Valuables/Belongings: 09/30/23 04:23:00 ?? Other Discharge Information ? Pulmonary Rehab Status?? Pulmonary Rehab Discharge Status?? Respiratory Rate: 18 br/min Respiratory Rate: 18 br/min ? Common Emergency [...] are strongly encouraged to quit. Please call [facility] LiquidTalk Link at [phone] or [phone]) or log in to [email or web address] for referrals to smoking cessation programs. ?? 989 Suicide & Crisis Lifeline is available 17/03 if you or someone you know needs to find a reason to keep living. By calling 480 you'll be connected to a skilled, trained counselor at a crisis center in your area. INPATIENT DISCHARGE INSTRUCTIONS SIGNATURE RONI VEGA Location:[facility] Registration Date and Time:09/29/2023 20:28 EST Primary Care Physician: Krishna Tapia MD, Attending Physician: Genoveva Catalan MD, I RONI GARZA, have received the above patient education materials/instructions and have verbalized understanding. If ambulance or transport services are being used I further acknowledge being given a choice of service. ?? If you need to contact me, please call me at this number: . Patient/Cookie Mixer Helper Name: Patient/Cookie Mixer Helper Signature: Relationship to Patient: Witness Name/Signature: Date: * Rajiv King MD: PERFORM Event Display: Patient Education Leaflets Authored Date: [id number] Tacrolimus Oral Capsule ?? [id number] Tacrolimus Oral Capsule Brands: [employer] Uses This medicine is used for the following purposes: ??? autoimmune disorder ??? prevent organ transplant rejection ?? Instructions Swallow the medicine without crushing or chewing it. This medicine may be taken with or without food, but it is important to take it the same way each time. This medicine will work best if you take it at about the same time every day. Store at room temperature away from heat, light, and moisture. Do not keep in the bathroom. Avoid grapefruit juice while on this medicine. Do not take antacids 2 hours before or 2 hours after taking this medicine. Tell your doctor if you have severe or persistent sweating, diarrhea or vomiting. These can increase your risk of a serious side effect. It is important that you keep taking each dose of this medicine on time even if you are feeling well. If you forget to take a dose on time, take it as soon as you remember. If it is almost time for thenext dose, do not take the missed dose. Return to your normal schedule. Do not take 2 doses at one time. Drug interactions can change how medicines work or increase risk for side effects. Tell your healthcare providers about all medicines taken. Include prescription and [id number] medicines, vitamins, and herbal medicines. Speak with your doctor or pharmacist before starting or stopping any medicine. This medicine may cause higher blood sugar levels or diabetes. Please follow your doctor's instructions and check your blood sugar level regularly while on this medicine. Keep all appointments for medical exams and tests while on this medicine. ?? Cautions Tell your doctor and pharmacist if you ever had an allergic reaction to a medicine. Some patients on this medicine have developed severe, life-threatening infections. Please speak with your doctor about the risks and benefits of using this medicine. Some patients taking this medicine have experienced serious side effects. Please speak with your doctor to understand the risks and benefits associated with this medicine. This medicine may increase the risk of cancer. Ask your doctor about the benefits and risks. Do not use the medication any more than instructed. This medicine may reduce your body's ability to fight infections. Avoid contact with people with colds, flu or other infections. Contact your doctor if you develop fever, cough, sore throat, or chills. Speak with your health care provider before receiving any vaccinations. This medicine passes into breast milk. Ask your doctor before . This medicine can cause defects. Speak with your doctor about control methods that should be used while on this medicine. This medicine may damage sperm. Men should use reliable control while taking this medicine. Women who are or in their childbearing years should not touch or handle this medicine. This medicine can be absorbed through the woman's skin and harm the unborn baby. Do not share this medicine with anyone who has not been prescribed this medicine. Always refill this medicine before it runs out. ?? Side Effects The following is a list of some common side effects from this medicine. Please speak with your doctor about what you should do if you experience these or other side effects. ??? agitated feeling or trouble sleeping ??? decreased appetite ??? diarrhea ??? headaches ??? highblood sugar ??? high blood pressure ??? nausea and vomiting ??? shakiness ??? stomach upset or abdominal pain Call your doctor or get medical help right away if you notice any of these more serious side effects: ??? decreased awareness or responsiveness ??? loss of balance ??? bleeding or bruising ??? chest pain ??? changes in memory, mood, or thinking ??? difficulty concentrating ??? confusion ??? dizziness??? ear problems (ringing in the ears, hearing loss) ??? swelling of the legs, feet, and hands ??? fainting ??? fever or chills ??? numbness or tingling in hands and feet ??? severe or persistent headache ??? fast or irregular heart beats ??? signs of kidney damage (such as change in urine color orbubbly urine) ??? signs of liver damage (such as yellowing of eye or skin, dark urine, or unusual tiredness) ??? muscle aches, spasms or abnormal movements ??? muscle weakness ??? ringing in the ears??? seizures ??? shortness of breath ??? slurred speech ??? dark, tarry stool ??? blurring or changes of vision ??? severe or persistent vomiting ??? sudden or unexplained change in weight A few people may have an allergic reaction to this medicine. Symptoms can include difficulty breathing, skin rash, itching, swelling, or severe dizziness. If you notice any of these symptoms, seek medical help quickly. ?? Extra Please speak with your doctor, nurse, or pharmacist if you have any questions about this medicine. ?? [email or web address] IMPORTANT NOTE: This document tells you briefly how to take your medicine, but it does not tell youall there is to know about it. Your doctor or pharmacist may give you other documents about your medicine. Please talk to them if you have any questions. Always follow their advice. There is a more complete description of this medicine available in [place]ian. Scan this code on your smartphone or tablet or use the web address below. You can also ask your pharmacist for a printout. If you have any questions, please ask your pharmacist. The display and use of this drug information is subject to Terms of Use. Copyright(c) 2022 [employer]. ?? The [employer]. All rights reserved. This information is not intended as a substitute for professional medical care. Always follow your healthcare professional's instructions. ?? * Rajiv King MD: PERFORM Event Display: Patient Education Leaflets Authored Date: [id number] Preventing Recurrent Stroke: Eating Healthy ?? 32244 Preventing Recurrent Stroke: Eating Healthy Eating healthy foods helps lower cholesterol and??reduce plaque buildup in arteries. It can also help you lose weight and keep high blood pressure under control. Eating better doesn???t necessarily mean going on a special diet,??unless you have diabetes or high blood pressure. Instead, the idea is to make healthier choices by limiting foods and ingredients that contribute to risk factors for stroke. Meats Instead of: ??? Beef and other red meats ??? Hamburger ??? Processed lunch meats Try: ??? Fish, skinless chicken, or tofu ??? Ground turkey ??? Chicken or turkey breast slices Sweets and snacks Instead of: ??? Soda pop ??? Chips and other salty snacks ??? Donuts and croissants Try: ??? Water ??? Nuts, seeds, air-popped popcorn ??? Fresh fruit, whole-grain raisin bread Grains Instead of: ??? White bread ??? White rice ??? Regular pasta or noodles ??? White potatoes Try: ??? Whole-grain bread ??? Brown rice ??? Whole-grain pasta or noodles ??? Sweet potatoes Dairy Instead of: ??? Whole milk ??? Regular cheese and mayonnaise ??? Ice cream ??? Butter Try: ??? 1% or skim milk ??? Low-fat cheese and mayonnaise ??? Low-fat yogurt ??? [place] or canola oil Choose the right mix of foods The ma to good eating is having a variety of healthy foods. Try to plan meals around vegetables, fruits, lean meats, and whole grains. Limit fatty meats and high-fat dairy products. The chart below can show you the best way to fill up your plate. 1. Drink water or low-fat (1% or fat-free) milk with meals. Don't drink sugary sodas or salty vegetable juices. 2. At least half the plate should be vegetables and fruits. Limit fatty toppings, such as butter, salad dressing, and sour cream. 3. No more than??1 quarter??of the plate should be meat or other protein. Fish, beans, tofu, and lean cuts ofpoultry are best. Bake or broil meat instead of frying. 4. About 1 quarter??of the plate can be starchy foods, such as rice and potatoes. Whole grains, such as brown rice or whole-wheat bread, are best. ?? Try healthier choices Giving up old food habits doesn???t have to be hard. Here are some easy ways to choose healthier choices: ?? Choose fats wisely Reducing ???bad?? fats in your diet helps keep your arteries healthier. Use this guide: ??? Chooseunsaturated fats.?? These are found in foods, such as fish, nuts, olive oil, canola oil, and avocados. In moderation, these fats can be good for you. ??? Limit saturated fats.?? These are found in meat and dairy foods, such as burgers, poultry skin, milk, cheese, and butter. ??? Don't have trans fats.?? These are often found in processed foods. Skip any foods that have the word hydrogenated in their ingredients. ?? Reduce sodium (salt) You may be asked to eat less sodium (salt). If you have high blood pressure, your healthcare provider will probably recommend that you limit your sodium intake to 1,500 mg to 2,400??mg per day. Use these tips: ??? Look for food labels that have the words salt free or very low sodium. Always check for the number of servings per container on the food label, as a container of food may have more than??1 serving.? Don't eat canned or packaged foods, such as canned soup, instant noodles, TV dinners, and premade sauces. ??? Don???t add salt or soy sauce to meals. Use fresh herbs or lemon juice for seasoning. Your taste buds will adjust. ??? Skip the fast food. Look for ???heart healthy?? items on restaurant menus. These are often lower in fat and salt. ?? For family and friends Support makes it easier to stick with a healthy eating plan.??Good eating habits are easier when everyone joins in. It helps when everyone in the family shops for and eats healthy foods. ?? Last Reviewed Date: 2022 ?? [employer]. All rights reserved. This information is not intended as a substitute for professional medical care. Always follow your healthcare professional's instructions. ?? * Rajiv King MD: PERFORM Event Display: Patient Education Leaflets Authored Date: [id number] Preventing Recurrent Stroke: Getting Active ?? 02857 Preventing Recurrent Stroke: Getting Active Being active is ma to preventing stroke. It???s good for your heart and lowers high blood pressure.??It helps you keep doing??independent activities of daily living.??Moving around also helps you recover skills lost from the stroke. It???s best if you???re active at least 30??minutes each day. This doesn???t have to be at a gym. The ma is finding things that fit your lifestyle and abilities. Ifyou have trouble moving around, your healthcare provider may prescribe physical therapy.??The physical therapist can help you??develop physical activity goals and give you an exercise prescription.??Low- to moderate-intensity aerobic and muscle-strengthening activities are an important part of recovery. Ways to get moving After a stroke, you may not be able to do everything you used to. But there are still simple ways you can stay active: ??? Marshall leaves or work in the garden. ??? Play with children or grandchildren. ??? Work on a hobby. ??? Park farther away from building entrances and walk. ??? Sweep or vacuum your living space. ??? Use the stairs instead of the elevator.??If walking up stairs is too hard, you can start by walking down.? If walking is hard, try stretching exercises or swimming. ?? Walk every day Walking is great exercise. It???s free, easy, and all you need is a good pair of shoes. Start with short walks. Then go a little farther each week. The tips below can help: ??? Warm up.??Start off with a few minutes of strolling. Then walk at a brisker pace. ??? Walk every chance you get.??Walk to do errands, for fun, or to visit friends. Visit a local park or explore your neighborhood. ??? Take a friend along.??Having company can make it more fun. ??? Walk farther each week.??Try walking a little farther or longer each week. You may be surprised by how fast you improve! ?? When to stop If you???re new to exercising, it???s normal to feel a little sore afterward. But you should stop right away if you: ??? Have trouble breathing ??? Feel dizzy or extremely tired ??? Have sharp pain ?? Stick with it Some days it may seem hard to be active. Plan ways to keep going anyway. Your health and life are at stake. Make a list of things that might keep you from exercising. Then write down what you can do to get around those things.? For family and friends It???s much easier for your loved one to be active when you join in. Try these tips: ??? Go for walks together. ??? Ask your loved one to join in during activities, such as making dinner. ??? If theystart making excuses, suggest ways to overcome the roadblocks. ??? Cheer every improvement! ?? Last Reviewed Date: 2022 ?? [employer]. All rights reserved. This information is not intended as a substitute for professional medical care. Always follow your healthcare professional's instructions. ?? Admission evaluation note * Jacy GREENWOOD, Jaci Ralph: PERFORM, MODIFY Event Display: Admission Note Authored Date: [id number] Patient: ??RONI GARZA ? Age:??53 Years?Sex:??Male?:??1970?? Chief Complaint/Reason for Consultation Headache, neck pain and right sided facial weakness History of Present Illness 53-year-old male who presents for evaluation of right shoulder and neck discomfort was found to have right-sided facial weakness. ?? Patient has a pertinent past medical history of coronary artery disease, hypertension, hyperlipidemia type 1 diabetes, peripheral neuropathy with spinal cord stimulator, end-stage renal disease failed donor renal transplant now on TTS hemodialysis, DVT s/p IVC filter. ?? Patient's symptoms started 2 days prior to presentation.?? He describes a right- sided headache thatalso involve the right side of his neck.?? 10 out of 10 in intensity at times and was sharp and stabbing in nature.?? It was not constant and had intermittent provocation.?? No changes with movement of the head or neck.?? No associated visual symptoms at that time.?? His headache has since improvedhowever on the day of admission he noted a weakness on the right side of his face and was unable todrink water as it dribbled out of the right side of his mouth.?? Has not noticed any changes in hisspeech.?? Does feel a numbness over the right side of his face but no weakness or numbness involving the extremities or his body.?? Still continues to have the neck pain and mild headache.?? No complain of difficulty swallowing. No ear ache or ear discharge and no changes in??his balance.?? No abdominal pain chest pain associated with this.?? He has been compliant with his medications.?? Recentlyhad clopidogrel discontinued.?? Last dialysis was on Wednesday 09/27. ?? In the ED he was hemodynamically stable although slightly hypertensive with systolic blood [id number] mmHg.?? Afebrile and saturating well on room air.?? Lab work showed anemia at baseline INR of 1.0, platelet count of 200.?? Renal function consistent with his ESRD and no significant electrolyte a bnormalities.?? Was hypoglycemic once overnight which corrected with glucose.?? Lipid panel was checked recently and the LDL level is 49.?? A1c of 7.1 consistent with his type 1 diabetes.?? Lyme antibody was negative. ?? EKG was done which showed normal sinus rhythm with nonspecific ST abnormality no specific ischemic changes.?? CT scan of the head and brain without contrast showed no acute intracranial pathology.?? Mild paraspinal sinus disease noted. ?? Patient was admitted to the observation unit for further evaluation and neurology consultation.?? He was tired from not having enough sleep overnight during my evaluation.?? Still continued to have the neck pain and headache and persistent left-sided facial weakness. Review of Systems Full review of systems obtained.?? Negative apart from mentioned above Objective Measurements?? Height: 173 cm (09/30/23) Weight: 102.5 kg (09/30/23) Dry Weight: 90.5 kg (09/30/23) Body Mass Index:??34.25 kg/m2??Critical (09/30/23) ? Vital Signs?? Temperature: 97.5 DegF (09/30/23 08:40:00) Temperature Route: Oral (09/30/23 08:40:00) Pulse Rate: 86 bpm (09/30/23 08:40:00) Respiratory Rate:??14 br/min??Low (09/30/23 08:40:00) Systolic Blood Pressure:??170 mm Hg??High (09/30/23 08:40:00) Diastolic Blood Pressure:??93 mm Hg??High (09/30/23 08:40:00) Blood pressure sites: Leg, right (09/30/23 08:40:00) Mean Arterial Pressure: 119 mm Hg (09/30/23 08:40:00) Pulse Pressure: 77 mm Hg (09/30/23 08:40:00) Oxygen Saturation: 100 % (09/30/23 08:40:00) Mode of Delivery (Oxygen): Room air (09/30/23 05:16:00) Early Warning Score: 5 (09/30/23 11:55:08) ? Intake/Output? No Data Available ? Physical Exam Constitutional: Alert, in no acute distress. Head: Normocephalic. ?? Eyes: Pupils are equal, round and reactive to light. Extraocular muscles intact. No pallor or scleral icterus ?? Ear, Nose and Throat: mucous membranes moist. Ears and nose - no obvious deformities. Trachea midline.??Ear canal exam unremarkable,??no??vesicles ?? Neck: Supple, Full range of motion.No JVD or bruits. Respiratory:??Clear to auscultation. No wheezing or rhonchi.??No use of accessory muscles. No tactile fremitus.?? Cardiovascular:??PMI not visible. S1 S2 regular. No murmurs, rubs or gallops. Gastrointestinal:??Abdomen soft, non-tender, non-distended. Normal bowel sounds. No pulsatile mass.No hepatosplenomegaly. Genitourinary:??No costovertebral angle tenderness. Extremities: No lower extremity pitting edema. No cyanosis or clubbing. Neurologic:??AAOx3, Right-sided facial weakness with drooping of the corner of the mouth.?? Absenceof nasolabial folds.?? Mild decrease in forehead falls on the right side.?No pronator drift. ??Strength in the upper and lower extremities 5 out of 5 Psychiatric: Normal mood and affect. Assessment/Plan Assessment:??53-year-old male with the above-mentioned past medical history presenting with right shoulder and neck pain and right-sided facial weakness admitted for??ruling out of acute ischemic stroke. ?? Facial droop (R29.810):?? Headache (R51.9):?? Neck pain (M54.2):??Patient has had 3 days duration of acute neck pain headache??and??right-sided facial droop now. On exam does have??upper motor neuron features but also has the??right??sided??forehead fold??mild decrease which is suggestive of lower motor neuron palsy. No??ear canal issues to suggest??Melania Dewey. CT scan of the head shows no??acute abnormality Patient has a??nerve stimulator??however it is compatible with MRI brain therefore we will proceed with this. Discussed with radiology and the nerve stimulator would prevent patient from having a MRI??a of thehead and neck.??Cleared by renal for patient to undergo IV contrast. Therefore will obtain a CTA ofthe head and neck to rule out any stenosis or??occlusions. For now we will continue with aspirin 81 mg daily He is already on statin which will be continued A1c 7.1 and lipid panel shows LDL of 49 Other possibility if acute ischemic stroke is ruled out is Le's palsy given that he has lower motor neuron features. Neurology has been consulted. ?? ESRD on dialysis (N18.6):?? Transplanted kidney present (Z94.0):??On TTS??hemodialysis [facility] has been consulted Cleared for??receiving??contrast for CTA from renal point of view Continue home medications of sevelamer, calcitriol, cholecalciferol??and??zirconium. tacrolimus 0.5 mg daily to prevent desensitization for future transplant ?? Neuropathy (G62.9):??Patient has a??spinal neurostimulator Model number is compatible with??MRI brain but not MRA neck Patient has a remote with him in order to switch it off. ?? Diabetes mellitus type 1 (E10.9):??Patient??has a??insulin pump Will order lispro sliding scale Endocrinology consultation??for management of the pump- recommended discontinuing pump and start 16units of Lantus Check blood glucose levels 3 times daily Hypoglycemia emergency measures ? CAD (coronary artery disease) (I25.10):?? Chronic systolic congestive heart failure (I50.22):??. ?ACEI or ARB for LVSD:??ARB has been ordered Hypertension (I10):??Not in acute AC??no ACS or acute exacerbation of heart failure Euvolemic Okay to continue with home Entresto Lasix and metoprolol Continue aspirin and statin as above ?? DVT (deep venous thrombosis) (I82.409):??S/p IVC filter ?? VTE Prophylaxis:??Heparin subcutaneous ?VTE Prophylaxis Assessment:??VTE Prophylaxis Ordered ??Diet- Renal Code Status:??Full code ?Order Code Status:??Code Status Ordered ?? Ongoing Medical Necessity:??Rule out acute stroke with MRI brain??and pending CTA head and neck ?? Discharge Planning:??Home within the next 24 hours. ? Histories Past Medical History/Problem List Active Problems??(10) CAD (coronary artery disease) Chronic kidney disease [...] Cigarette Use: Never. ? Family History No positive family history reported. ? Medications Home Medications Albuterol (albuterol 0.083% [...] oral capsule)?0.4?Milligram?1?capsule?By Mouth?Daily at bedtime ? Results ? LFT AST (SGOT): 32 units/L (21:51) Protime (PT): 10.3 seconds (21:51) ? Blood Gases?? No qualifying data available. ?? EKG study * Event Display: ECG 12-Lead Authored Date: Please click on pdf link to open report * Event Display: ECG 12-Lead Authored Date: Ventricular Rate: 94 BPM Atrial Rate: 94 BPM P-R Interval: 178 ms QRS Duration: 88 ms Q-T Interval: 332 ms QTC Calculation(Bazett): 415 ms P [place]: 53 degrees R [place]: -5 degrees T [place]: 44 degrees Normal sinus rhythm Nonspecific ST abnormality Abnormal ECG When compared with ECG of 24-JUN-2023 11:44, QT has shortened Confirmed by NERISSA BENDER MD ([id number]) on 10/01/2023 12:12:51 PM [place]: NERISSA BENDER MD Cardiology * Event Display: Cardiac Rhythm Strips Authored Date: Hospital Progress note * JaySher RASHEED, David S: PERFORM Event Display: Progress Note Hospital Authored Date: [id number] Patient: ??RONI GARZA ? Age:??53 Years?Sex:??Male?:??1970?? Subjective interim hx no new symptoms post auricular pain no sensory change couldn't tolerate MRI, and doesn't want to try with sedation Review of Systems Allergies Allergies ?(Active and Proposed Allergies Only) [...] Unknown, Onset: Unknown) ?Reactions: mind races ? Objective Vital Signs?? Temperature: 97.6 DegF (10/01/23 10:24:00) Temperature Route: Oral (10/01/23 10:24:00) Pulse Rate: 67 bpm (10/01/23 10:24:00) Respiratory Rate: 18 br/min (10/01/23 10:25:00) Respiratory Rate: 18 br/min (10/01/23 10:25:00) Systolic Blood Pressure: 120 mm Hg (10/01/23 10:24:00) Diastolic Blood Pressure: 60 mm Hg (10/01/23 10:24:00) Blood pressure sites: Arm, right (10/01/23 10:24:00) Mean Arterial Pressure: 80 mm Hg (10/01/23 10:24:00) Pulse Pressure: 60 mm Hg (10/01/23 10:24:00) Oxygen Saturation: 99 % (10/01/23 10:24:00) Mode of Delivery (Oxygen): Room air (10/01/23 10:24:00) Early Warning Score: 5 (10/01/23 10:38:29) ? Physical Exam Gen- NAD? neuro- mentation- alert and oriented x person, place, time, and disposition. ??able to name simple objectssuch as watch and eyeglasses. ??able to follow simple and complex commands. ??no aphasia.?? eyes- PERRLA, EOMI, no visual field deficits face- asymmetric, sensation intact R [place] palsy slight weakness R lid closure and R forehead speech- clear, fluent ?? Motor- good muscle bulk and tone RUE- 5/5 ?? RLE- 5/5 LUE- 5/5 ?LLE- 5/5 ?? sensation-??intact to LT bilaterally ?? coordination- good fnf, heal to barker, ELLIOTT ?? _ Home Medications Albuterol (albuterol 0.083% inhalation solution)?3?Milliliter?2.5?Milligram?Inhalation?Every [...] Mouth?Daily at bedtime ? Inpatient Medications Medications (35) Active SCHEDULED: (21) Aspirin 81 mg EC Tablet (aspirin 81 mg oral delayed release tablet) ??81 mg, By Mouth, Daily Atorvastatin 40 mg Tablet (atorvastatin 40 mg oral tablet) ??40 mg, By Mouth, Daily Breo Ellipta 100 mcg / 25 mcg Inhaler (Breo Ellipta 100 mcg-25 mcg Inhaler) ??1 puffs, Inhalation, Daily Brimonidine 0.2% Ophthalmic Solution (brimonidine 0.2% ophthalmic solution) ??0.2 % 1 drops, Eyes, Both, 2 times a day Calcitriol 0.25 mcg Capsule (calcitriol 0.25 mcg oral capsule) ??1 mcg, By Mouth, Every Friday, and Friday Folic Acid 1 mg Tablet (folic acid 1 mg oral tablet) ??1 mg, By Mouth, Daily Furosemide 80 mg Tablet (furosemide 80 mg oral tablet) ??80 mg, By Mouth, Daily Gabapentin 300 mg Capsule (gabapentin 300 mg oral capsule) ??300 mg, By Mouth, Daily Heparin 5000 units/mL Inj (1 mL) (Heparin Inj) ??5,000 units 1 mL, Subcutaneous Injection, 3 times a day Latanoprost 0.005% Ophthalmic Solution (Xalatan 0.005% solution) ??1 drops, Eyes, Both, Daily at bedtime Magnesium Oxide 400 mg Tablet (magnesium oxide 400 mg oral tablet) ??800 mg, By Mouth, Every Friday, Friday and Friday Meclizine 12.5 mg Tablet (meclizine 12.5 mg oral tablet) ??25 mg, By Mouth, 3 times a day Metoprolol 100 mg XL Tablet (Metoprolol ??XL Tablet) ??100 mg, By Mouth, Daily NaCl 0.9% Flush 3ml (NaCL 0.9% Flush) ??3 mL, IV Push, Every 8 hours Pantoprazole 20 mg EC Tablet (pantoprazole 20 mg oral delayed release tablet) ??20 mg, By Mouth, Daily Sacubitril-Valsartan 24 mg-26 mg Tablet (Entresto 24 mg-26 mg oral tablet) ??1 tablet, By Mouth, 2 times a day Sevelamer Carbonate 800 mg Tablet (sevelamer carbonate 800 mg oral tablet) ??1,600 mg, By Mouth, 3 times a day with meals Sodium Zirconium 10 Gm Packet (Lokelma Packet) ??10 Gm 1 pack/packet, By Mouth, Every Friday, Friday and Friday Tacrolimus 0.5 mg Capsule (tacrolimus 0.5 mg oral capsule) ??0.5 mg, By Mouth, Daily Tamsulosin 0.4 mg Capsule (tamsulosin 0.4 mg oral capsule) ??0.4 mg, By Mouth, Daily at bedtime Vitamin B-12 ??1000 mcg Tablet (cyanocobalamin 1000 mcg oral tablet) ??1,000 mcg, By Mouth, Daily CONTINUOUS: (0) PRN: (14) Acetaminophen 325 mg Tablet (Acetaminophen Tablet) ??650 [...] Gm, IV Push Slowly, Every 15 minutes Docusate Sodium 100 mg Capsule (Docusate Sodium Capsule) ??100 mg 1 capsule, By Mouth, 2 times a day Glucagon 1 mg Inj (Glucagon Inj) ??1 [...] Gm 1 pack/packet, By Mouth, Daily Senna Tablet ??8.6 mg 1 tablet, By Mouth, 2 times a day Simethicone 80 mg Chewable Tablet (Simethicone Tablet) ??80 mg, Chew, 3 times a day ? Results Recent Labs BLOOD COUNT & DIFF WBC 3.5 k/mm3 (Low)?? 09/30/2023 11:11 RBC 3.46 m/mm3 (Low)?? 09/30/2023 11:11 Hgb 10.1 Gm/dL (Low)?? 09/30/2023 11:11 Hct 33.3 % (Low)?? 09/30/2023 11:11 MCV 96.2 femtoliters (High)?? 09/30/2023 11:11 MCH 29.2 pg ()?? 09/30/2023 11:11 MCHC 30.3 g/dL (Low)?? 09/30/2023 11:11 Platelet Count 180 k/mm3 ()?? 09/30/2023 11:11 RDW-SD 53.3 femtoliters (High)?? 09/30/2023 11:11 MPV 9.2 femtoliters (Low)?? 09/30/2023 11:11 Nucleated RBC (Automated) 0.0 #/100 WBC'S ()?? 09/30/2023 11:11 Abs. NRBC 0.0 k/mm3 ()?? 09/30/2023 11:11 ?? CHEM GENERAL Sodium 136 mmol/L ()?? 09/30/2023 11:11 Potassium 5.6 mmol/L (High)?? 09/30/2023 11:11 Chloride 98 mmol/L ()?? 09/30/2023 11:11 Bicarbonate Level 24 mmol/L ()?? 09/30/2023 11:11 Anion Gap 14 ()?? 09/30/2023 11:11 Glucose, POC 103 mg/dL (High)?? 10/01/2023 10:36 ?? URINE OTHER Est Creatinine Clearance 7.90 mL/min ()?? 09/30/2023 00:58 ? Assessment/Plan Diagnoses CAD (coronary artery disease) ??(I25.10) Chronic systolic congestive heart failure ??(I50.22) DVT (deep venous thrombosis) ??(I82.409) Diabetes mellitus type 1 ??(E10.9) ESRD on dialysis ??(N18.6) Facial droop ??(R29.810) Headache ??(R51.9) Hypertension ??(I10) Neck pain ??(M54.2) Neuropathy ??(G62.9) Obese class I ??(Z68.30) Transplanted kidney present ??(Z94.0) ? 53-year-old male with PMH significant for CAD, HTN, HLD, Type 1 DM, peripheral neuropathy with spinal cord stimulator, ESRD s/p failed donor renal transplant, on dialysis, and DVT s/p IVC filter who presented for evaluation of right shoulder/neck discomfort, and now with right facial weakness. The patient reports following dialysis he experienced right shoulder/neck discomfort following dialysis on Sat. ?? CT/CTA head and neck no LVO ?? DDx: Right Le's Palsy, less likely brainstem cva couldn't tolerate MRI, and doesn't want to try with sedation lyme AB negative ? Recommendations: - continue asa 81 for now - d/w hospitalist, will do predisone for 7 days, for bells palsy, - I will refer for stroke clinic f/u since unable to get advanced imaging to r/o cva determine if asa needs to be continued ?? d/w hospitalist d/w Dr. Arevalo * Estella Mann: PERFORM, MODIFY, SIGN, VERIFY Rufino GREENWOOD, Marcelo: MODIFY, SIGN Rufino GREENWOOD, Marcelo: SIGN Event Display: Progress Note Hospital Authored Date: [id number] Patient: RONI GARZA Age: 53 years Sex: Male : 1970 Associated Diagnoses: None Author: Estella Mann [facility] Inpatient Nephrology Progress Note Interval History No events. Had significant claustrophobia with MRI, unable to complete. Patient requesting to go home today Had dialysis yesterday with 1.7 L removed Review of Systems Negative except as mentioned above Physical Examination Vital Signs Vitals 10/01/2023 6:31 EST Height 173 cm Temperature 97.5 DegF Temperature Route Oral Pulse Rate 67 bpm Respiratory Rate 18 br/min Systolic Blood Pressure 119 mm Hg Diastolic Blood Pressure 72 mm Hg Blood pressure sites Arm, right Mean Arterial Pressure 88 mm Hg Pulse Pressure 47 mm Hg Oxygen Saturation 99 % Mode of Delivery (Oxygen) Room air . General Appearance NAD. Respiratory Lungs: CTA. Cardiac Rhythms: RRR. Extremities No edema. Neurologic Alert & oriented x 3 . Results Review No labs today Impression and Plan Roni Garza is a 53-year-old male with a past medical history of ESRD d/t diabetic nephropathy s/p DDKT 2010 c/b [facility] and ACR in 2019 now ESRD again, HFrEF (35-40%), T1DM, DVT s/p IVC filter who presented to [facility] on 09/29 with right sided facial pain and droop. 1. ESRD DDKT in 2010 c/b [facility], ACR, and TMA now dialysis dependent since 2019 Patient dialyzes TTS at [facility] with LUE AVG 2. HTN/Volume Chronically, patient takes Entresto 24-26 BID, metoprolol 100 mg daily, and Lasix 80 mg daily 3. Mineral Bone Disease Phos 3.8, at goal PTH 319 (09/04) 4. 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 Discussed with Dr. Joy * Marcelo Joy MD: PERFORM Event Display: Progress Note Hospital Authored Date: Seen and examined, case d/w renal PA and agree with her assessment and rec as noted * Janie Kunz RN: PERFORM, SIGN, VERIFY Event Display: Progress Note Hospital Authored Date: Patient: RONI GARZA Age: 53 years Sex: Male : 1970 Associated Diagnoses: None Author: Janie Kunz RN Findings Narrative/Incidental Pt A/Ox4, no SOB, no CP, V/S stable. c/o headache offered tylenol pt refuse tylenol says its not working on him Only Dilaudid works for his pain. Notified Line Builder prescribed Dilaudid 0.5mg one time dose. Pt verbalizes releif from pain, Comfortable slept well all through the night. Pt sent to MRI unable to complete MRI claiming he is claustrophobic.Sent back, comfortable slept back. No acute event. All needs are met. Callbell within reach, Continously monitored.. Consult note * Edelmira GREENWOOD, Sujey: MODIFY, PERFORM Event Display: Consultation Note Authored Date: Patient: ??RONI GARZA ? Age:??53 Years?Sex:??Male?:??1970?? Provider Clinical Summary Consult type: BIDS Reason for consultation: Type 1 DM Requesting provider: Jacy GREENWOOD, Jaci Ralph History of Present Illness 53-year-old male with past medical history of type 1 diabetes mellitus with ESRD s/p DDKT in 2020 which failed, currently on hemodialysis, CAD, hypertension, hyperlipidemia admitted to the hospital for CVA rule out. BIDS has been consulted for assistance with management of patient's type 1 diabetes mellitus in thespital. ?? Home DM regimen: [employer] insulin pump infusing U-100. Basal rates: 8am to 12pm 2u/hr 12pm to 12am 2U/hr ?? Total basal: 39.2U ?? CR: 12A-11A: 6 11A-4P: 7 4P-12A: 7 ?? ISF 22 ?? Active insulin time: 3 hours ?? Target blood glucose 100-130 ?? Complications: Peripheral neuropathy ASCVD ESRD ? Current Inpatient glycemic history and management: -Basal insulin:??None -Prandial insulin:??Humalog 2 units for blood sugar 150mg/dL??with interval increase of 2 units forevery 50mg/dL, 3 times daily AC??60 g carbohydrates per meal -Diet:??60 g carbohydrates per meal ?? Patient's blood sugars since presentation to the hospital last night have ranged between 62???205 ?? Patient has his own insulin??pump on at this time. He has very poor p.o. intake Review of Systems 12 point ROS was performed and is negative except for as mentioned above Physical Exam Vitals & Measurements T:??97.5?F?? TMIN:??97.4?F?? TMAX:??98.2?F?? HR:??86??(Peripheral)?? RR:??14?? BP:??170/93?? SpO2:??100%?? WT:??102.5??kg?? General: age appropriate individual, in no acute distress HEENT: normocephalic, atraumatic, no conjunctival injection, no scleral icterus, moist oral mucosalmembranes Neck: Supple Lungs: Clear to auscultation b/l, no wheezing, no crackles, no rhonchi Heart: S1, S2 Normal, regular rate and rhythm, no murmur heard Abdomen: Soft, nontender, no appreciable hepatosplenomegaly Neuro: grossly nonfocal Assessment/Plan 53-year-old male with past medical history of type 1 diabetes mellitus with ESRD s/p DDKT in 2020 which failed, currently on hemodialysis, CAD, hypertension, hyperlipidemia admitted to the hospital for CVA rule out. BIDS has been consulted for assistance with management of patient's type 1 diabetes mellitus in thespital. ?? Type 1 diabetes mellitus HbA1c 7.1% in 01/12/2024 Total daily basal on insulin pump 39.2units At the time of my interview with the patient, he was unwilling to take his insulin pump off and be transitioned to subcutaneous Lantus and Humalog despite having borderline low blood sugars. I offered to make changes to insulin pump to help prevent hypoglycemia however patient wishes to speak with his surveillance dual rate officer and is unwilling to make change to his pump at this time. ?? If patient is agreeable: ?Please give patient??Lantus??20 units. ??Discontinue patient's insulin pump 2 hours after Lantus administration.??Patient??has type I DM, please do not hold basal insulin,??if NPO give 70-80% ofhis/her dose. ?Start Humalog sliding scale at 2 units for blood sugar 100mg/dL??with interval increase of 2 units for every 50mg/dl,??TIDAC. ??Hold for NPO. ?? We will continue to monitor patient's glycemic trends while in the hospital. ?? Sujey Hickey MD PGY IV Endocrinology, Diabetes, & Metabolism?? Problem List/Past Medical History Ongoing CAD (coronary artery disease) Chronic kidney disease (CKD) Chronic systolic congestive heart failure Diabetes mellitus type 1 ESRD on dialysis Foot pain Hypertension Neuropathy Obese class I Transplanted kidney present Procedure/Surgical History ???Kidney transplant right 2019; AV graft left arm; BIlateral trigger finer release suurgeries Medications Inpatient Acetaminophen Tablet, 650 mg, By Mouth, Every 4 hours, PRN Albuterol 0.083% inhalation fam, 2.5 mg= 3 mL, BAND Nebulizer, Every 4 hours, PRN aspirin 81 mg oral delayed release tablet, 81 mg, By Mouth, Daily atorvastatin 40 mg oral tablet, 40 mg, By Mouth, Daily Breo Ellipta 100 mcg-25 mcg Inhaler, 1 puffs, Inhalation, Daily brimonidine 0.2% ophthalmic solution, 0.2 %= 1 drops, Eyes, Both, 2 times a day calcitriol 0.25 mcg oral capsule, 1 mcg, By Mouth, Every Friday, and Friday calcitriol 0.25 mcg oral capsule, 1.5 mcg, By Mouth, Every Friday, and Friday cyanocobalamin 1000 mcg oral tablet, 1000 mcg, By Mouth, Daily Dextrose 50% Inj Syringe (25Gm), 12.5 Gm, IV Push Slowly, Every 20 minutes, PRN Dextrose 50% Inj Syringe (25Gm), 25 Gm, IV Push Slowly, Every 15 minutes, PRN Docusate Sodium Capsule, 100 mg= 1 capsule, By Mouth, 2 times a day, PRN Entresto 24 mg-26 mg oral tablet, 1 tablet, By Mouth, 2 times a day folic acid 1 mg oral tablet, 1 [...] Inj, 5000 units= 1 mL, Subcutaneous Injection, 3 times a day Insulin LISPRO Sliding Scale, 2-10 units, Subcutaneous Injection, 3 times a day before meals Lantus Inj, 16 units= 0.16 mL, Subcutaneous Injection, Daily at bedtime Lokelma Packet, 10 Gm= 1 pack/packet, By Mouth, Every Friday, Friday and Friday magnesium oxide 400 mg oral tablet, 800 mg, By Mouth, Every Friday, Friday and Friday meclizine 12.5 mg oral tablet, 25 mg, By Mouth, 3 times a day Melatonin Tablet, 3 mg, By Mouth, Daily at bedtime, PRN Metoprolol XL Tablet, 100 mg, By Mouth, Daily MiraLax Powder, 17 Gm= 1 pack/packet, By Mouth, Daily, PRN NaCL 0.9% Flush, 3 mL, IV Push, Every 8 hours NaCL 0.9% Flush, 3 mL, IV Push, Every 8 hours, PRN pantoprazole 20 mg oral delayed release tablet, 20 mg, By Mouth, Daily Robitussin DM Liquid, 10 mL, By Mouth, Every 4 hours, PRN Senna Tablet, 8.6 mg= 1 tablet, By Mouth, 2 times a day, PRN sevelamer carbonate 800 mg oral tablet, 1600 mg, By Mouth, 3 times a day with meals Simethicone Tablet, 80 mg, Chew, 3 times [...] Eyes, Both, 2 times a day calcitriol 0.5 mcg oral capsule, 1.5 mcg= 3 capsule, By Mouth, Every Friday, and Friday Compression Stockings, See Instructions, 2 refills cyanocobalamin [...] 50 mg oral tablet, extended release, 100 mg= 2 tablet, By Mouth, Daily omeprazole 20 mg oral enteric coated capsule, 20 mg= 1 capsule, By Mouth, Daily Omni Pod Insulin Pump Please discontinue clopidpogrel 75 mg daily., See Instructions Renvela 800 mg oral tablet, 800 mg= 1 tablet, By Mouth, 3 times a day with meals sacubitril-valsartan 24 mg-26 mg oral tablet, 1 tablet, By Mouth, 2 times a day, 4 refills sodium zirconium cyclosilicate 10 g oral powder for reconstitution, 10 Gm, By Mouth, Every Friday, Friday and Friday tamsulosin 0.4 mg oral capsule, 0.4 mg= [...] 06/13/2010 Given pneumococcal 23-valent vaccine 09/25/2007 Given * Estella Mann: PERFORM, MODIFY, MODIFY, SIGN, VERIFY, MODIFY, SIGN Marcelo Joy MD: SIGN, MODIFY Marcelo Joy MD: MODIFY Event Display: Consultation Note Authored Date: [id number] Patient: RONI GARZA Age: 53 years Sex: Male : 1970 Associated Diagnoses: None Author: Estella Mann [facility] Inpatient Nephrology Consultation Note Reason for Consult: ESRD History of Present Illness Roni Garza is a 53-year-old male with a past medical history of ESRD d/t diabetic nephropathy s/p DDKT 2010 c/b [facility] and ACR in 2020 now ESRD again, HFrEF (35-40%), T1DM, DVT s/p IVC filter who presented to [facility] on 09/29 with right sided facial pain and droop. Patient reports he was in his normal state of health then after dialysis on Friday they pulled too much fluid and he was cramping, had to have fluid returned. That night developed right shoulder pain and then noticed a right facial droop prompting ER visit. In the ED patient was afebrile, hypertensive, and non-tachycardic. Labs were unrevealing. CT head was unremarkable. CTA was deferred due to patient's transplant status. He was admitted for observation. Review of Systems Negative except as mentioned above Health Status Allergies: Allergies (Active and Proposed [...] Neuropathy Obese class I Transplanted kidney present Medications: Albuterol (albuterol 0.083% inhalation solution) 3 Milliliter 2.5 Milligram InhalationEvery 4 hours as needed Wheezing/Shortness of Breath for 30 Days Aspirin (aspirin 81 mg oral delayed release tablet) 81 Milligram 1 tablet By Mouth Daily for 30 Days Atorvastatin (atorvastatin 40 mg oral tablet) 1 tab(s) 40 Milligram By Mouth Daily Brimonidine Ophthalmic (brimonidine 0.2% ophthalmic solution) 1 Drops Eyes, Both 2 times a day Calcitriol (calcitriol 0.5 mcg oral capsule) 3 capsule 1.5 Microgram By Mouth Every Friday, and Friday for 30 Days Clopidogrel (clopidogrel 75 mg oral tablet) 75 Milligram 1 tablet By Mouth Daily Cyanocobalamin (cyanocobalamin 1000 mcg oral tablet) 1,000 Microgram 1 tablet By Mouth Daily Durable Medical Equipment (Compression Stockings) See Instructions surgical, knee length 20-30 mm Hg Fluticasone-Salmeterol (Advair [...] (Humalog 100 u/ml subcutaneous injection) See Instructions Subcutaneous InfusiON INSULIN PUMP Latanoprost Ophthalmic (Xalatan 0.005% solution) 1 Drops Eyes, Both Daily at bedtime Magnesium Oxide (magnesium oxide 400 mg oral tablet) See Instructions TAKE 2 TABLETS BY MOUTH EVERYDAY Melatonin (melatonin 3 mg oral tablet) 3 Milligram By Mouth Daily at bedtime as needed as needed for insomnia Metoprolol (metoprolol 50 mg oral tablet, extended release) 100 Milligram 2 tablet By Mouth Daily for 90 Days Miscellaneous Rx (MECLIZINE 25 MG TABLET) By Mouth 3 times a day Miscellaneous Rx (Please discontinue clopidpogrel 75 mg daily.) See Instructions See above Omeprazole (omeprazole 20 mg oral enteric coated capsule) 1 capsule 20 Milligram By Mouth Daily sacubitril-valsartan (sacubitril-valsartan 24 mg-26 mg oral tablet) 1 tab(s) By Mouth 2 times a dayfor 90 Days Sevelamer (Renvela 800 mg oral tablet) 1 tab(s) 800 Milligram By Mouth 3 times a day with meals sodium zirconium cyclosilicate (sodium zirconium cyclosilicate 10 g oral powder for reconstitution)10 gram By Mouth Every Friday, Friday and Friday dilute w/45 ml water, mix well, and drink immediately Tamsulosin (tamsulosin 0.4 mg oral capsule) 0.4 Milligram 1 capsule By Mouth Daily at bedtime Social History: Alcohol Details: Use: Never. Employment/School Details: Status: Employed. Exercise Details: Self assessment: Fair condition. Home/Environment Details: Living situation: Home/Independent. Substance Abuse Details: Use: Never. Tobacco Details: Never smoker Electronic Cigarette/Vaping Details: Electronic Cigarette Use: Never. Family History: No positive family history reported. Physical Examination Temperature 97.5 (08:42) Systolic Blood Pressure 170 (08:42) Diastolic Blood Pressure 93 (08:42) Pulse 86 (08:42) SpO2 100 (08:42) Respiratory Rate 14 (08:42) General: No acute distress HEENT: EOMI, mucous membranes moist CV: Regular rate and rhythm. No murmurs, gallops, rubs Respiratory: All sutton clear to auscultation bilaterally. No wheezes, rales, rhonchi Abdominal: Soft, nontender. Bowel sounds noted Extremities: No lower extremity edema. LUE AVF + thrill Neuro: AAO x3. Uneven smile, both eyebrows raise. Results Review General results Today's results 09/29/2023 21:51 EST WBC 4.3 k/mm3 RBC 3.54 m/mm3 L Hgb 10.5 Gm/dL L Hct 33.6 % L MCV 94.9 femtoliters H MCH 29.7 pg MCHC 31.3 g/dL L Platelet Count 202 k/mm3 RDW-SD 53.1 femtoliters H MPV 9.4 femtoliters Nucleated RBC (Automated) 0.0 #/100 WBC'S Abs. NRBC 0.0 k/mm3 Abs. Neut 2.6 k/mm3 Abs. Lymph 0.9 k/mm3 Abs. Ellsworth 0.6 k/mm3 Abs. Eo 0.2 k/mm3 Abs. Baso 0.0 k/mm3 Neut % 60.8 % Lymph % 21.6 % Ellsworth % 13.0 % H Eos % 3.9 % Baso % 0.7 % Imm Gran 0.0 % Abs. Imm Gran 0.0 k/mm3 INR 1.0 Protime (PT) 10.3 seconds APTT 24.5 seconds Sodium 141 mmol/L Potassium 4.6 mmol/L Chloride 97 mmol/L L Bicarbonate Level 29 mmol/L Anion Gap 15 Glucose Level 138 mg/dL H BUN 53 mg/dL H Creatinine-Blood 10.5 mg/dL H Estimated GFR Creatinine 5 ML/MIN/1.73 M2 Calcium 9.4 mg/dL AST (SGOT) 32 units/L Lyme Disease Ab Screen NEGATIVE Impression and Plan Roni Garza is a 53-year-old male with a past medical history of ESRD d/t diabetic nephropathy s/p DDKT 2010 c/b [facility] and ACR in 2019 now ESRD again, HFrEF (35-40%), T1DM, DVT s/p IVC filter who presented to [facility] on 09/29 with right sided facial pain and droop. 1. ESRD DDKT in 2010 c/b [facility], ACR, and TMA now dialysis dependent since 2019. Patient remains on MMF Patient dialyzes TTS at [facility] with LUE AVG 2. HTN/Volume Chronically, patient takes Entresto 24-26 BID and Lasix 80 mg daily 3. Mineral Bone Disease Phos 3.8, at goal PTH 319 (09/04) 4. Nephrogenic Anemia Ferritin 1606, Tsat 35 (09/04) Plan: - HD on TTS schedule - D/C MMF and start tacrolimus 0.5 mg daily to prevent desensitization for future transplant - C/w Entresto and Lasix - C/w sevelamer 1600 mg TID and calcitriol 1.0 mcg TTS - Renal diet - OK for both CT with contrast and MRI with contrast Will continue to follow [facility] Discussed with Dr. Joy * Rufino GREENWOOD, Marcelo: PERFORM Event Display: Consultation Note Authored Date: Seen and examined, case d/w renal PA and agree with her assessment and rec as noted * Vale ANIMAL HUSBANDMAN, Marily Jameson: PERFORM, MODIFY, MODIFY, MODIFY, MODIFY, MODIFY, MODIFY, MODIFY Event Display: Consultation Note Authored Date: Patient: ??RONI GARZA ? Age:??53 Years?Sex:??Male?:??1970?? Chief Complaint/Reason for Consultation Right shoulder/neck discomfort following Dialysis on Friday, as well as right facial weakness History of Present Illness Mr. Garza is a 53-year-old male with PMH significant for CAD, HTN, HLD, Type 1 DM, peripheral neuropathy with spinal cord stimulator, ESRD s/p failed donor renal transplant, on dialysis, and DVT s/p IVC filter who presented for evaluation of right shoulder/neck discomfort, and now with right facial weakness. The patient reports following dialysis he experienced right shoulder/neck discomfort?? following dialysis on Friday. He additionally experienced a significant??right sided headache, that has since improved. Then, on Friday, he noted right facial weakness and inability to retain water in his mouth, stating it would run out of the right side of his mouth. Headache improved tomild, though still continues posteriorly and on the right, as well as continues with??discomfort toright neck/shoulder. In the ED, CT Head nonacute. CTA Head/Neck deferred in the setting of ESRD. ?? Review of Systems Constitutional: Denies fever/chills. HEENT: Denies dizziness.??Reports mild right-sided??headache. Denies recent loss or change in vision. Cardiovascular: Denies chest pain and/or palpitations. Denies shortness of breath.?? Respiratory: Denies SOB/dyspnea. ?? GI: Denies N/V/D. Denies abdominal discomfort. : Denies dysuria, or nocturia. Denies any other urinary symptoms. Neuro: Denies dizziness.??Reports mild right-sided??headache. Denies recent loss or change in vision. Denies paresthesia. Denies weakness. Musculoskeletal: Reports right neck/shoulder discomfort. ?? Objective Vital Signs?? Temperature: 97.5 DegF (09/30/23 08:40:00) Temperature Route: Oral (09/30/23 08:40:00) Pulse Rate: 86 bpm (09/30/23 08:40:00) Respiratory Rate:??14 br/min??Low (09/30/23 08:40:00) Systolic Blood Pressure:??170 mm Hg??High (09/30/23 08:40:00) Diastolic Blood Pressure:??93 mm Hg??High (09/30/23 08:40:00) Blood pressure sites: Leg, right (09/30/23 08:40:00) Mean Arterial Pressure: 119 mm Hg (09/30/23 08:40:00) Pulse Pressure: 77 mm Hg (09/30/23 08:40:00) Oxygen Saturation: 100 % (09/30/23 08:40:00) Mode of Delivery (Oxygen): Room air (09/30/23 05:16:00) Early Warning Score: 2 (09/30/23 08:42:01) ? NIH Stroke Scale: ?? 1a. LOC (0-alert; 1-not alert, arousable; 2-not alert, obtunded; 3- nonresponsive): 0 1b. Questions (0-answers two correctly; 1-answers one correctly; 2-answers neither correctly): 0 1c. Commands (0-perform two tasks; 1-performs one task; 2-performs neither tasks): 0 2. Gaze (0-normal; 1-partial gaze palsy; 2-forced deviation): 0 3. Visual sutton (0-no visual loss; 1-partial hemianopsia; 2-complete hemianopsia; 3-bilateral hemianopsia): 0 4. Facial palsy (0-normal; 1-minor palsy; 2-partial palsy; 3-complete paralysis): 2 5a. Motor left arm (0-normal; 1-drift before 10 sec; 2-falls before 10 sec; 3-no effort against gravity; 4-no movement): 0 5b. Motor right arm (0-normal; 1-drift before 10 sec; 2-falls before 10 sec; 3- no effort against gravity; 4-no movement): 0 6a. Motor left leg (0-normal; 1-drift before 5 sec; 2-falls before 5 sec; 3-no effort against gravity; 4-no movement): 0 6b. Motor right leg (0-normal; 1-drift before 5 sec; 2-falls before 5 sec; 3-no effort against gravity; 4-no movement): 0 7. Ataxia (0-absent; 1-one limb; 2-two limbs): 1 8. Sensory (0-absent; 1-mild/moderate; 2-severe/total loss): 0 9. Language (0-normal; 1-mild/moderate loss; 2-severe aphasia; 3-mute): 0 10. Dysarthria (0-normal; 1-mild/moderate; 2-severe): 0 11. Extinction (0-normal; 1-mild-one modality; 2-[id number] modality): 0 ?? NIHSS Total:??3 ? Slava Coma Scale Orr Coma Score: 15 (09/29/23 21:29:00) Motor Response-Adult: Obeys commands (09/29/23 21:29:00) Response Eye Opening: Spontaneously (09/29/23 21:29:00) Verbal Response-Adult: Oriented and converses (09/29/23 21:29:00) ? Physical Exam General:?53-year-old male, who appears stated age. Calm and cooperative. Responds appropriately to questioning. Speech clear Integ: Skin is warm, dry and intact. No diaphoresis.?? HEENT: Eyes symmetrical. Pupils 2mm, equally round, regular, and responsive to light. Extraocular eye movements intact. No nystagmus. Hearing grossly intact.?? Respiratory: Respirations even and unlabored. GI: Abd soft, and nondistended. Extremities: warm and perfused. Neurological: Mental status: A&O x3. Answers questions appropriately and follows commands. Cranial Nerves: II: Pupils 2mm equally round, regular and reactive to light III, IV, : EOM intact, no gaze preference or deviation. No nystagmus. VFF V: Facial sensation intact to light touch in V1, V2, and V3 segments. Tenderness to palpation rightear VII: Right facial weakness. Mild decrease in forehead folds VIII: Normal hearing to speech IX, X:??Normal palatal elevation, no uvular deviation.?? XI: Shoulder shrug intact bilaterally XII: Midline tongue protrusion Motor: Musculoskeletal development appropriate for age and gender. Moves extremities independently Strength Finishing Supervisor: L: 5/5 ? R: 5/5 Deltoids: L: 5/5 ? R:5/5 Biceps: ?? L: 5/5 ? R:5/5 Triceps: ?? L: 5/5 ? R:5/5 Knee extension: L: 5/5 ? R: 5/5 Sensory: Sensation intact to light touch in all limbs. No hemineglect, no extinction to double sided stimulation Coordination:??Finger to nose with ?very mild dysmetria in RUE. No dysmetria in LUE. Gait: Deferred. ?? Assessment/Plan 53-year-old male with PMH significant for CAD, HTN, HLD, Type 1 DM, peripheral neuropathy with spinal cord stimulator, ESRD s/p failed donor renal transplant, on dialysis, and DVT s/p IVC filter who presented for evaluation of right shoulder/neck discomfort, and now with right facial weakness. The patient reports following dialysis he experienced right shoulder/neck discomfort following dialysis on Friday. He additionally experienced a significant??right sided headache, that has since improved. Then, on Friday, he noted right facial weakness and inability to retain water in the right side of his mouth. In the ED, CT Head nonacute. CTA Head/Neck deferred in the setting of ESRD. ? DDx: Right neck/shoulder discomfort and right facial weakness - Rule out stroke given vascular risks vs Le's Palsy ? Recommendations: - NPO until swallow function cleared - Initiate ASA 81mg?? (rectally until swallow function cleared) - Obtain MRI Brain - Obtain MRA Head/Neck (ok to defer tay if concerned about kidneys) - Check lipid panel and A1C - Home statin when able for LDL goal <70 - Lyme Ab screening in process ?? - q4hr neuro checks, VS, and telemetry monitoring - STAT CT head for any acute changes - Continue to control vascular risks: A1C <7.0. Statin therapy for LDL >70 or >100 with only one vascular risk. [facility] BP control - Remainder of care per primary team ? Thank you. Neurology will follow. Please call with any questions/concerns ?? d/w Dr. Arevalo d/w Dr. Louie, Hasith Histories Past Medical History/Problem List Active Problems??(10) CAD (coronary artery disease) Chronic kidney disease (CKD) Chronic systolic congestive heart failure Diabetes mellitus type 1 ESRD on dialysis Foot pain Hypertension Neuropathy Obese class I Transplanted kidney present ? Past Surgical History Kidney transplant right 2019; AV graft left arm; BIlateral trigger finer release suurgeries ? Social History Alcohol Details:??Use: Never. Employment/School Details:??Status: Employed. Exercise Details:??Self assessment: Fair condition. Home/Environment Details:??Living situation: Home/Independent. Substance Abuse Details:??Use: Never. Tobacco Details:??Never smoker Electronic Cigarette/Vaping Details:??Electronic Cigarette Use: Never. ? Stroke Treatment Details Able to close lips, pucker and blow out: Yes Able to swallow own secretions: Yes Absence of dysarthria/dysphonia/aphonia: Yes No delay in swallowing (tsp): Yes Patient alert: Yes Swallows water without choking (60cc): Yes Swallows water without choking (tsp): Yes Voice sounds clear, not gurgly (60cc): Yes Voice sounds clear, not gurgly (tsp): Yes Voluntary Cough: Yes ?? Medications Home Medications Albuterol (albuterol 0.083% inhalation solution)?3?Milliliter?2.5?Milligram?Inhalation?Every 4 hours?as needed?Wheezing/Shortness of Breath?for 30?Days Aspirin (aspirin 81 mg oral delayed release tablet)?81?Milligram?1?tablet?By Mouth?Daily?for 30?Days Atorvastatin (atorvastatin 40 mg oral tablet)?1?tab(s)?40?Milligram?By Mouth?Daily Brimonidine Ophthalmic (brimonidine 0.2% ophthalmic solution)?1?Drops?Eyes, Both?2 times a day Calcitriol (calcitriol 0.5 mcg oral capsule)?3?capsule?1.5?Microgram?By Mouth?Every Friday, and Friday?for 30?Days Clopidogrel (clopidogrel 75 mg oral tablet)?75?Milligram?1?tablet?By Mouth?Daily Cyanocobalamin (cyanocobalamin 1000 mcg oral tablet)?1,000?Microgram?1?tablet?By [...] Mouth?Daily at bedtime ? Inpatient Medications Medications (15) Active SCHEDULED: (7) Calcitriol 0.25 mcg Capsule (calcitriol 0.25 mcg oral capsule) ??1 mcg, By Mouth, Every Friday, and Friday Furosemide 80 mg Tablet (furosemide 80 mg oral tablet) ??80 mg, By Mouth, Daily Insulin Lispro 100 units/mL Inj (3mL) (Insulin LISPRO Sliding Scale) ??2-10 units, Subcutaneous Injection, 3 times a day before meals NaCl 0.9% Flush 3ml (NaCL 0.9% Flush) ??3 mL, IV Push, Every 8 hours Sacubitril-Valsartan 24 mg-26 mg Tablet (Entresto 24 mg-26 mg oral tablet) ??1 tablet, By Mouth, 2 times a day Sevelamer Carbonate 800 mg Tablet (sevelamer carbonate 800 mg oral tablet) ??1,600 mg, By Mouth, 3 times a day with meals Sodium Zirconium 10 Gm Packet (Lokelma Packet) ??10 Gm 1 pack/packet, By Mouth, Every Friday, Friday and Friday CONTINUOUS: (0) PRN: (8) Acetaminophen 325 mg Tablet (Acetaminophen Tablet) ??650 mg, By Mouth, Every 4 hours Dextromethorphan-Guaifenesin 20 mg-200 mg/10 mL Liqu UD (Robitussin DM Liquid) ??10 mL, By Mouth, Every 4 hours Docusate Sodium 100 mg Capsule (Docusate Sodium Capsule) ??100 mg 1 capsule, By Mouth, 2 times a day Melatonin 3 mg Tablet (Melatonin Tablet) ??3 mg, By Mouth, Daily at bedtime NaCl 0.9% Flush 3ml (NaCL 0.9% Flush) ??3 mL, IV Push, Every 8 hours Polyethylene Glycol 17 Gm Powder (MiraLax Powder) ??17 Gm 1 pack/packet, By Mouth, Daily Senna Tablet ??8.6 mg 1 tablet, By Mouth, 2 times a day Simethicone 80 mg Chewable Tablet (Simethicone Tablet) ??80 mg, Chew, 3 times a day ? Results Recent Labs BLOOD BANK Blood Type B Positive ()?? 09/29/2023 21:40 Antibody Screen Negative ()?? 09/29/2023 21:40 ?? BLOOD COUNT & DIFF WBC 4.3 k/mm3 ()?? 09/29/2023 21:51 RBC 3.54 m/mm3 (Low)?? 09/29/2023 21:51 Hgb 10.5 Gm/dL (Low)?? 09/29/2023 21:51 Hct 33.6 % (Low)?? 09/29/2023 21:51 MCV 94.9 femtoliters (High)?? 09/29/2023 21:51 MCH 29.7 pg ()?? 09/29/2023 21:51 MCHC 31.3 g/dL (Low)?? 09/29/2023 21:51 Platelet Count 202 k/mm3 ()?? 09/29/2023 21:51 RDW-SD 53.1 femtoliters (High)?? 09/29/2023 21:51 MPV 9.4 femtoliters ()?? 09/29/2023 21:51 Nucleated RBC (Automated) 0.0 #/100 WBC'S ()?? 09/29/2023 21:51 Abs. NRBC 0.0 k/mm3 ()?? 09/29/2023 21:51 Abs. Neut 2.6 k/mm3 ()?? 09/29/2023 21:51 Abs. Lymph 0.9 k/mm3 ()?? 09/29/2023 21:51 Abs. Ellsworth 0.6 k/mm3 ()?? 09/29/2023 21:51 Abs. Eo 0.2 k/mm3 ()?? 09/29/2023 21:51 Abs. Baso 0.0 k/mm3 ()?? 09/29/2023 21:51 Neut % 60.8 % ()?? 09/29/2023 21:51 Lymph % 21.6 % ()?? 09/29/2023 21:51 Ellsworth % 13.0 % (High)?? 09/29/2023 21:51 Eos % 3.9 % ()?? 09/29/2023 21:51 Baso % 0.7 % ()?? 09/29/2023 21:51 Imm Gran 0.0 % ()?? 09/29/2023 21:51 Abs. Imm Gran 0.0 k/mm3 ()?? 09/29/2023 21:51 ?? CHEM GENERAL Sodium 141 mmol/L ()?? 09/29/2023 21:51 Potassium 4.6 mmol/L ()?? 09/29/2023 21:51 Chloride 97 mmol/L (Low)?? 09/29/2023 21:51 Bicarbonate Level 29 mmol/L ()?? 09/29/2023 21:51 Anion Gap 15 ()?? 09/29/2023 21:51 Glucose Level 138 mg/dL (High)?? 09/29/2023 21:51 Glucose, POC 165 mg/dL (High)?? 09/30/2023 04:58 BUN 53 mg/dL (High)?? 09/29/2023 21:51 Creatinine-Blood 10.5 mg/dL (High)?? 09/29/2023 21:51 Estimated GFR Creatinine 5 ML/MIN/1.73 M2 ()?? 09/29/2023 21:51 Calcium 9.4 mg/dL ()?? 09/29/2023 21:51 AST (SGOT) 32 units/L ()?? 09/29/2023 21:51 ?? COAG INR 1.0 ()?? 09/29/2023 21:51 Protime (PT) 10.3 seconds ()?? 09/29/2023 21:51 APTT 24.5 seconds ()?? 09/29/2023 21:51 ?? URINE OTHER Est Creatinine Clearance 7.90 mL/min ()?? 09/30/2023 00:58 ? Abnormal Labs ?? BLOOD BANK ??Antibody Screen ??Negative () ??09/29/2023 21:40 ??Blood Type ??B Positive () ??09/29/2023 21:40 ? BLOOD COUNT & DIFF ??Abs. Imm Gran ??0.0 k/mm3 () ??09/29/2023 21:51 ??Abs. NRBC ??0.0 k/mm3 () ??09/29/2023 21:51 ??Hct ??33.6 % (Low) ??09/29/2023 21:51 ??Hgb ??10.5 Gm/dL (Low) ??09/29/2023 21:51 ??Imm Gran ??0.0 % () ??09/29/2023 21:51 ??MCHC ??31.3 g/dL (Low) ??09/29/2023 21:51 ??MCV ??94.9 femtoliters (High) ??09/29/2023 21:51 ??Ellsworth % ??13.0 % (High) ??09/29/2023 21:51 ??Nucleated RBC (Automated) ??0.0 #/100 WBC'S () ??09/29/2023 21:51 ??RBC ??3.54 m/mm3 (Low) ??09/29/2023 21:51 ??RDW-SD ??53.1 femtoliters (High) ??09/29/2023 21:51 ? CHEM GENERAL ??BUN ??53 mg/dL (High) ??09/29/2023 21:51 ??Chloride ??97 mmol/L (Low) ??09/29/2023 21:51 ??Creatinine-Blood ??10.5 mg/dL (High) ??09/29/2023 21:51 ??Estimated GFR Creatinine ??5 ML/MIN/1.73 M2 () ??09/29/2023 21:51 ??Glucose Level ??138 mg/dL (High) ??09/29/2023 21:51 ??Glucose, POC ??165 mg/dL (High) ??09/30/2023 04:58 ? Note: Critical results are displayed in red. ? * Lam Arevalo MD: PERFORM Event Display: Consultation Note Authored Date: I saw the patient, confirm the history and exam and agree with the assessment and plan. Patient Care team information Care Team Personnel Name: Wild Santos RN Position: [facility] RN Member Role: Primary Care Nurse Name: Lucy Garcia RN Position: [facility] ED RN W/OE and Tasks Member Role: Primary Care Nurse Name: Julianna Mazariegos RN Position: [facility] RN Member Role: Primary Care Nurse Name: Simin Rosario RN Position: [facility] RN Member Role: Primary Care Nurse Name: Janie Kunz RN Position: [facility] RN Member Role: Primary Care Nurse Name: Krishna Tapia MD Position: [facility] Outreach Member Role: PCP Address: Address: [address] [place] [address] Drive [place] [address]- Name: Estella Mann Position: [facility] Associate Professional Member Role: [employer]etime Consulting Provider Address: Address: [address] [place] [address] [address] [place] [address]- [place] Name: Miguelangel Cancino MD Position: [facility] Renal MD Member Role: Lifetime Consulting Physician Address: Address: [address] [place] [address] [id number] [facility] [place] [address]- [place] Name: Filomena Austin RN Position: [facility] RN Member Role: Primary Care Nurse Name: Faby Guido RN Position: [facility] RN Member Role: Primary Care Nurse Name: Maddy Skelton Position: S RN Member Role: Primary Care Nurse Name: Elise Yao LPN Position: S RN Member Role: Primary Care Nurse Name: Barak Shaw DO Position: [facility] [facility] Renal MD Member Role: Lifetime Consulting Physician Address: Address: [address] [place] [address] [address] [facility] [place] [address]- Name: Florencia Fineica Position: [facility] Outreach Member Role: Lifetime Consulting Physician Name: Niki Montes RN Position: [facility] RN Member Role: Primary Care Nurse Name: Stella Calhoun RN Position: [facility] RN Member Role: Primary Care Nurse Name: Wes Lezama Position: [facility] Associate Professional Member Role: Lifetime Consulting Provider Address: Address: [address] [place] [address]- Name: Kinjal Macias RN Position: [facility] RN Member Role: Primary Care Nurse Name: Estephania Pizano RN Position: [facility] ED RN W/OE and Tasks Member Role: Primary Care Nurse Name: Zita Barrow RN Position: [facility] SN RN Member Role: Primary Care Nurse Name: Alexis Brooke MD Position: [facility] Renal MD Member Role: Lifetime Consulting Physician Address: Address: [address] [place] [address] [address] [facility] [place] [address]- Name: Chantelle Villareal RN Position: [facility] RN Member Role: Primary Care Nurse Name: Brisa Michaels RN Position: [facility] RN Member Role: Primary Care Nurse Name: London Chau RN Position: [facility] RN Member Role: Primary Care Nurse Name: Ana Schafer RN Position: [facility] RN Member Role: Primary Care Nurse Name: Liz Aguilera RN Position: [facility] Outreach Member Role: Lifetime Consulting Physician Name: Reyna Dumont RN Position: [facility] RN Member Role: Primary Care Nurse Name: Sudhir Chan Position: [facility] Outreach Member Role: Lifetime Consulting Physician Name: Roselia Crain RN Position: [facility] RN Member Role: Primary Care Nurse Name: Jorge Barker RN Position: [facility] RN Member Role: Primary Care Nurse Address: Address: [address] [place] [address]- Name: Marcelo Joy MD Position: [facility] Renal MD Member Role: Lifetime Consulting Physician Address: Address: [address] [place] [address] [facility] [place] [address]- [place] Name: Nell Copeland RN Position: [facility] RN Member Role: Primary Care Nurse Name: Star Hagen RN Position: [facility] RN Member Role: Primary Care Nurse Name: Odalis Roy RN Position: [facility] SN RN Member Role: Primary Care Nurse Name: Merline Carlson RN Position: [facility] RN Member Role: Primary Care Nurse Name: Nupur Black RN Position: [facility] RN Member Role: Primary Care Nurse Name: Serena Allen RN Position: [facility] Onco RN Member Role: Primary Care Nurse Name: Maura Tsang RN Position: [facility] RN Member Role: Primary Care Nurse Care Team Related Persons Name: SHILPAFLORENCIADARLENE KAYCE Address: home [address] [place] [address] Name: SANTIAGO NAZARIO Address: home [address] [place] [address]
--- OUTSIDE RECORDS SUMMARY | 2024-01-23 20:43 | XMS_ITS | Continuity of Care Document ---
Author Organization [facility] Address [address] [facility], 3r d Floor, [address] [place] [address]- Care Team Providers Care Health Technician Name Role Phone Krishna Tapia MD Primary Care Physician [phone] Encounter [facility] Date(s): 10/24/23 - 10/31/23 [facility] [address], [address]rd Floor, [address] [place] [address]- Attending Physician: Yeny Ziegler MD Allergies, Adverse Reactions, Alerts Substance Reaction [...] 0 Refills, Maintenance, 06/22/22 6:51:00 EDT, Capsule, [facility], Partial fill upon patient request if [...] 08/29/22 8:44:00 EST, Route to Pharmacy Electronically, [facility], Partial fill upon patient request if [...] EVERY DAY, # 180 tablet, 1 Refills, [id number], 173,cm, 01/24/22 16:16:00 EDT, Height, 91.1, kg, [...] 11/07/22 16:29:00 EDT, Route to Pharmacy Electronically, [facility], Partial fill upon patient request if [...] 4 Refills, Maintenance, 06/24/23 12:07:00 EDT, Tablet, [facility], Partial fill upon patient request if [...] 1 Refills, Maintenance, 10/01/23 11:49:00 EST, Capsule, [facility], Partial fill upon patient request if [...] oldest [Reference Range]: 1 Height 173 cm (10/24/23 10:05 AM) Weight 97.9 kg (10/24/23 10:05 AM) Oxygen Saturation [94-100 %] 97 % (10/24/23 10:05 AM) Pulse Rate [55-90 bpm] 84 bpm (10/24/23 10:05 AM) Body Mass Index [18.5-24.99 kg/m2] 32.71 kg/m2 *>HHI* (10/24/23 10:05 AM) Blood Pressure [90-138/55-84 mm Hg] 129/ 69mm Hg (10/24/23 10:05 AM) Mode of Delivery (Oxygen) Room air (10/24/23 10:05 AM) Blood pressure sites Arm, right (10/24/23 10:05 AM) Weight Obtained Via Bed scale (3/1/24 10:05 AM) Social History Social History Type Response Smoking Status Never smoker entered on: 01/06/17 Sex Male Implantable Device List Procedure Provider Procedure Date Device Type Site Creation Arteriovenous Graft Upper Extre Josef Adams MD 03/12/21 Unknown Arm Left Device Identifier Serial Number Lot or Batch Number Manufacturing Date Expiration Date Distinct Identification Code MRI Safety Implantable Status Assigning Authority Unknown [id number] Unknown Unknown 09/26/25 Unknown Unknown Active Unknown Patient Care team information Care Team Personnel Name: Wild Santos RN Position: [facility] RN Member Role: Primary Care Nurse Name: Lucy Garcia RN Position: [facility] ED RN W/OE and Tasks Member Role: Primary Care Nurse Name: Julianna Mazariegos RN Position: [facility] RN Member Role: Primary Care Nurse Name: Simin Rosario RN Position: [facility] RN Member Role: Primary Care Nurse Name: Nupur Young RN Position: [facility] RN Member Role: Primary Care Nurse Name: Faby Saleh RN Position: [facility] RN Member Role: Primary Care Nurse Name: Janie Kunz RN Position: [facility] RN Member Role: Primary Care Nurse Name: Krishna Tapia MD Position: [facility] Outreach Member Role: PCP Address: Address: [address] [place] [address] [place] [address]- Name: Estella Mann Position: [facility] Associate Professional Member Role: Lifetime Consulting Provider Address: Address: [address] [place] [address] [address] [facility] [place] [address]- [place] Name: Miguelangel Cancino MD Position: [facility] Renal MD Member Role: Lifetime Consulting Physician Address: Address: [address] [place] [address] [address] [place] [address]- [place] Name: Filomena Austin RN Position: [facility] RN Member Role: Primary Care Nurse Name: Venkatesh Tirado RN Position: [facility] Outreach Member Role: Primary Care Nurse Name: Maddy Skelton Position: [facility] RN Member Role: Primary Care Nurse Name: Elise Yao LPN Position: [facility] RN Member Role: Primary Care Nurse Name: Barak Shaw DO Position: [facility] Renal MD Member Role: Lifetime Consulting Physician Address: Address: [address] [facility] [place] [address]- [place] Name: Tayla Fine Position: S Outreach Member Role: Lifetime Consulting Physician Name: Niki Montes RN Position: S RN Member Role: Primary Care Nurse Name: Stella Calhoun RN Position: [facility] RN Member Role: Primary Care Nurse Name: Wes Lezama Position: [facility] Associate Professional Member Role: Lifetime Consulting Provider Address: Address: [address] [place] [address]- Name: Kinjal Macias RN Position: [facility] RN Member Role: Primary Care Nurse Name: Estephania Pizano RN Position: [facility] ED RN W/OE and Tasks Member Role: Primary Care Nurse Name: Zita Barrow RN Position: [facility] SN RN Member Role: Primary Care Nurse Name: Alexis Brooke MD Position: [facility] Renal MD Member Role: Lifetime Consulting Physician Address: Address: [address] [place] [address] [address] [facility] [place] [address]- Name: Chantelle Villareal RN Position: [facility] RN Member Role: Primary Care Nurse Name: Brisa Michaels RN Position: [facility] RN Member Role: Primary Care Nurse Name: London Chau RN Position: [facility] RN Member Role: Primary Care Nurse Name: Ana Schafer RN Position: [facility] RN Member Role: Primary Care Nurse Name: Liz Aguilera RN Position: [facility] Outreach Member Role: Lifetime Consulting Physician Name: Reyna Dumont RN Position: [facility] RN Member Role: Primary Care Nurse Name: Sudhir Chan Position: [facility] Outreach Member Role: Lifetime Consulting Physician Name: Roselia Crain RN Position: [facility] RN Member Role: Primary Care Nurse Name: Jorge Crews RN Position: [facility] RN Member Role: Primary Care Nurse Address: Address: [address] [place] [address]- [place] Name: Marcelo Joy MD Position: [facility] Renal MD Member Role: Lifetime Consulting Physician Address: Address: [address] [place] [address] [facility] [place] [address]- Name: Nell Copeland RN Position: [facility] Member Role: Primary Care Nurse Name: Maura Tasng RN Position: [facility] RN Member Role: Primary Care Nurse Care Team Related Persons Name: KAYCE PARK Address: home [address] [place] [address] Name: NAZARIOSANTIAGO Address: [address] [place] [address]
--- OUTSIDE RECORDS SUMMARY | 2024-01-23 20:43 | XMS_ITS | Continuity of Care Document ---
Author Organization [facility] Address [address] [facility], 3r d Floor, [address] [place] [address]- Care Team Providers Care Rock Worker Name Role Phone Krishna Tapia MD Primary Care Physician Encounter [facility] Date(s): 10/20/23 - 11/19/23 [facility] [address] [facility], 3rd Floor, [address] [place] [id number] Allergies, Adverse Reactions, Alerts [...] Maintenance, 06/22/22 6:51:00 EDT, Capsule, [facility], Partial fill upon patient [...] 08/29/22 8:44:00 EST, Route to Pharmacy Electronically, [facility], Partial fill upon patient [...] EVERY DAY, # 180 tablet, 1 Refills, [facility] [id number], 173,cm, 01/24/22 16:16:00 EDT, Height, 91.1, kg, [...] 11/07/22 16:29:00 EDT, Route to Pharmacy Electronically, [facility], Partial fill upon patient request if [...] 4 Refills, Maintenance, 06/24/23 12:07:00 EDT, Tablet, [facility], Partial fill upon patient request if [...] 1 Refills, Maintenance, 10/01/23 11:49:00 EST, Capsule, [facility], Partial fill upon patient request if [...] MRI Safety Implantable Status Assigning Authority Unknown [id number] Unknown Unknown 09/26/25 Unknown Unknown Active Unknown Patient Care team information Care Team Personnel Name: Wild Santos RN Position: [facility] RN Member Role: Primary Care Nurse Name: Lucy Garcia RN Position: [facility] ED RN W/OE and Tasks Member Role: Primary Care Nurse Name: Julianna Mazariegos RN Position: S RN Member Role: Primary Care Nurse Name: Simin Rosario RN Position: [facility] RN Member Role: Primary Care Nurse Name: Nupur Young RN Position: [facility] RN Member Role: Primary Care Nurse Name: Faby Saleh RN Position: S RN Member Role: Primary Care Nurse Name: Janie Kunz RN Position: [facility] RN Member Role: Primary Care Nurse Name: Krishna Tapia MD Position: [facility] Outreach Member Role: PCP Address: Address: [address] [facility] [place]na [place] [address]- Name: Estella Mann Position: [facility] Associate Professional Member Role: Lifetime Consulting Provider Address: Address: [address] [facility] [address] [facility] [place] [address]- [place] Name: Miguelangel Cancino MD Position: [facility] Renal MD Member Role: Lifetime Consulting Physician Address: Address: [address] [facility] [place] [address]- Name: Filomena Austin RN Position: [facility] RN Member Role: Primary Care Nurse Name: Venkatesh Tirado RN Position: [facility] Outreach Member Role: Primary Care Nurse Name: Maddy Skelton Position: [facility] RN Member Role: Primary Care Nurse Name: Elise Yao LPN Position: [facility] RN Member Role: Primary Care Nurse Name: Barak Shaw DO Position: [facility] Renal MD Member Role: Lifetime Consulting Physician Address: Address: [address] [facility] [address] [facility] [place] [address]- Name: Tayla Fine Position: [facility] Outreach Member Role: Lifetime Consulting Physician Name: Niki Montes RN Position: [facility] RN Member Role: Primary Care Nurse Name: Stella Calhoun RN Position: [facility] RN Member Role: Primary Care Nurse Name: Wes Lezama Position: [facility] Associate Professional Member Role: Lifetime Consulting Provider Address: Address: [address] [place] [address]- [place] Name: Kinjal Macias RN Position: [facility] [...] Role: Lifetime Consulting Physician Address: Address: [address] [facility] [place] [place] [address]- [place] Name: Chantelle Villareal RN Position: S RN Member Role: Primary Care Nurse Name: Brisa Micahels RN Position: S RN Member Role: Primary Care Nurse Name: London Chau RN Position: S RN Member Role: Primary Care Nurse Name: Ana Schafer RN Position: S RN Member Role: Primary Care Nurse Name: Liz Aguilera RN Position: [facility] Outreach Member Role: Lifetime Consulting Physician Name: Reyna Dumont RN Position: [facility] RN Member Role: Primary Care Nurse Name: Sudhir Chan Position: [facility] Outreach Member Role: Lifetime Consulting Physician Name: Roselia Crani RN Position: [facility] RN Member Role: Primary Care Nurse Name: Jorge Crews RN Position: [facility] RN Member Role: Primary Care Nurse Address: Address: [address] [place] [address]- [place] Name: Marcelo Joy MD Position: [facility] Renal MD Member Role: Lifetime Consulting Physician Address: Address: [address] [place] [address] [facility] [place] [address]- Name: Nell Copeland RN Position: [facility] [...] Care Nurse Name: Maura Tsang RN Position: [facility] RN Member Role: Primary Care Nurse Care Team Related Persons Name: KAYCE PARK Address: home [address] [place] [address] Name: SANTIAGO NAZARIO Address: home [address] [place] [address]
--- OUTSIDE RECORDS SUMMARY | 2024-01-23 20:44 | XMS_ITS | Continuity of Care Document ---
Author Organization [facility] Address [address] [place] [address]- Care Team Providers Care Inspector Pawnshop Detail Name Role Phone Krishna Tapia MD Primary Care Physician [phone] [facility] Date(s): 09/03/23 - 10/03/23 [facility] [address] [place] [email or web address] Attending Physician: AdmKyler escalante Admitting Physician: Admtr, [...] Maintenance, 06/22/22 6:51:00 EDT, Capsule, [facility], Partial fill [...] EST, Route to Pharmacy Electronically, [facility], Partial fill [...] EVERY DAY, # 180 tablet, 1 Refills, [id number], 173,cm, 01/24/22 16:16:00 EDT, Height, 91.1, kg, [...] 11/07/22 16:29:00 EDT, Route to Pharmacy Electronically, [facility] [...] Acute 10/08/23 12:12:00 EST,10/01/23 12:12:00 EST, Tablet, [facility], Partial fill upon patient [...] 4 Refills, Maintenance, 06/24/23 12:07:00 EDT, Tablet, [facility], Partial fill upon patient request if [...] 1 Refills, Maintenance, 10/01/23 11:49:00 EST, Capsule, [facility], Partial fill upon patient request if [...] MRI Safety Implantable Status Assigning Authority Unknown [id number] Unknown Unknown 09/26/25 Unknown Unknown Active Unknown Patient Care team information Care Team Personnel Name: Wild Santos RN Position: [facility] RN Member Role: Primary Care Nurse Name: Lucy Garcia RN Position: [facility] ED RN W/OE and Tasks Member Role: Primary Care Nurse Name: Julianna Mazariegos RN Position: [facility] RN Member Role: Primary Care Nurse Name: Simin Rosario RN Position: [facility] RN Member Role: Primary Care Nurse Name: Janie Kunz RN Position: [facility] RN Member Role: Primary Care Nurse Name: Krishna Tapia MD Position: [facility] Outreach Member Role: PCP Address: Address: [address] [place] [address] Krishna [place] [address]- [place] Name: Estella Mann Position: [facility] Associate Professional Member Role: Lifetime Consulting Provider Address: Address: [address] [place] [address] [address] [facility] [address]- Name: Miguelangel Cancino MD Position: [facility] Renal MD Member Role: Lifetime Consulting Physician Address: Address: [address] [place] [address] [address] [place] [address]- Name: Filomena Austin RN Position: [facility] RN Member Role: Primary Care Nurse Name: Faby Guido RN Position: [facility] RN Member Role: Primary Care Nurse Name: Maddy Skelton Position: S RN Member Role: Primary Care Nurse Name: Elise Yao LPN Position: S RN Member Role: Primary Care Nurse Name: Barak Shaw DO Position: [facility] Renal MD Member Role: Lifetime Consulting Physician Address: Address: [address] [facility] [address] [facility] [place] [address]- [place] Name: Tayla Fine Position: [facility] Outreach Member Role: Lifetime Consulting Physician Name: Niki Montes RN Position: [facility] RN Member Role: Primary Care Nurse Name: Stella Calhoun RN Position: S RN Member Role: Primary Care Nurse Name: Wes Lezama Position: S Associate Professional Member Role: Lifetime Consulting Provider Address: Address: [address] [place] [address]- [place] Name: Kinjal Macias RN Position: [facility] RN Member Role: Primary Care Nurse Name: Estephania Pizano RN Position: [facility] ED RN W/OE and Tasks Member Role: Primary Care Nurse Name: Zita Barrow RN Position: [facility] SN RN Member Role: Primary Care Nurse Name: Alexis Brooke MD Position: [facility] Renal MD Member Role: Lifetime Consulting Physician Address: Address: [address] [place] [address] [address] [facility], [address] Name: Chantelle Villareal RN Position: [facility] RN Member Role: Primary Care Nurse Name: Brisa Michaels RN Position: [facility] RN Member Role: Primary Care Nurse Name: London Chau RN Position: [facility] RN Member Role: Primary Care Nurse Name: Ana Schafer RN Position: [facility] RN Member Role: Primary Care Nurse Name: Liz Aguilera RN Position: [facility] Outreach Member Role: Lifetime Consulting Physician Name: Reyna Dumont RN Position: [facility] RN Member Role: Primary Care Nurse Name: Sudhir Chan Position: [facility] Outreach Member Role: Lifetime Consulting Physician Name: Roselia Crain RN Position: [facility] RN Member Role: Primary Care Nurse Name: Jorge Crews RN Position: [facility] RN Member Role: Primary Care Nurse Address: Address: [address] [place] [address]- Name: Marcelo Joy MD Position: [facility] Renal MD Member Role: Lifetime Consulting Physician Address: Address: [address] [place] [address] [facility] [address] Name: Nell Copeland RN Position: [facility] RN Member Role: Primary Care Nurse Name: Star Hagen RN Position: [facility] RN Member Role: Primary Care Nurse Name: Odalis Roy RN Position: [facility] SN RN Member Role: Primary Care Nurse Name: Merline Carlson RN Position: [facility] RN Member Role: Primary Care Nurse Name: Nupur Black RN Position: [facility] RN Member Role: Primary Care Nurse Name: Serena Allen RN Position: [facility] Onco RN Member Role: Primary Care Nurse Name: Maura Tsang RN Position: [facility] RN Member Role: Primary Care Nurse Care Team Related Persons Name: KAYCE PARK Address: home [address] [place] [address] Name: SANTIAGO NAZARIO Address: [address] [address]
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
--- OUTSIDE RECORDS SUMMARY | 2024-01-23 20:44 | XMS_ITS | Continuity of Care Document ---
Author Organization [facility] Address [address] [facility], [address] d Floor, [address] [place] [address]- Care Team Providers Care Bleach Packer Name Role Phone Krishna Tapia MD Primary Care Physician Encounter [facility] Date(s): 10/24/23 - 11/23/23 [facility] [address] [facility] [address] [place], [place] [address] Attending Physician: Kyler Ny Admitting Physician: [...] 0 Refills, Maintenance, 06/22/22 6:51:00 EDT, Capsule, [facility], Partial fill upon patient request [...] 08/29/22 8:44:00 EST, Route to Pharmacy Electronically, [facility], Partial fill upon patient request [...] 180 tablet, 1 Refills, [facility], 173,cm, 01/24/22 16:16:00 EDT, Height, 91.1, kg, [...] 11/07/22 16:29:00 EDT, Route to Pharmacy Electronically, [facility], Partial fill upon patient request if [...] 4 Refills, Maintenance, 06/24/23 12:07:00 EDT, Tablet, [facility], Partial fill upon patient request if the prescription is for a schedule II opioid drug., 1 tablet By Mouth 2 times a day,x90... Start Date: 06/24/23 Stop Date: 09/16/24 Status: Ordered sodium zirconium cyclosilicate 10 g oral powder for reconstitution = 10 Gm, By Mouth, Every Friday, Friday and Terence, dilute w/45 ml water, mix well, and drink immediately, 0 Refills, Maintenance, 10/23/21 9:13:00 EST Start Date: 10/23/21 Status: Ordered tacrolimus 0.5 mg oral capsule = 0.5 mg, By Mouth, Daily, # 90 tablet, 1 Refills, Maintenance, 10/01/23 11:49:00 EST, Capsule, [facility], Partial fill upon patient request if [...] MRI Safety Implantable Status Assigning Authority Unknown [id number] Unknown Unknown 09/26/25 Unknown Unknown Active Unknown Patient Care team information Care Team Personnel Name: Wild Santos RN Position: S RN Member Role: Primary Care Nurse Name: Lucy Garcia RN Position: [facility] RN W/OE and Tasks Member Role: Primary Care Nurse Name: Julianna Mazariegos RN Position: S RN Member Role: Primary Care Nurse Name: Simin Rosario RN Position: [facility] RN Member Role: Primary Care Nurse Name: Nupur Young RN Position: S RN Member Role: Primary Care Nurse Name: Faby Saleh RN Position: S RN Member Role: Primary Care Nurse Name: Janie Kunz RN Position: [facility] RN Member Role: Primary Care Nurse Name: Krishna Tapia MD Position: [facility] Outreach Member Role: PCP Address: Address: [address] Krishna Tapia MD [place], [place] - Name: Estella Mann Position: [facility] Associate Professional Member Role: Lifetime Consulting Provider Address: Address: [address] [place] [address] [address] [facility] [place] [address]- Name: Miguelangel Cancino MD Position: [facility] Renal MD Member Role: Lifetime Consulting Physician Address: Address: [address] [place] [address] [address] [facility] [place], [place] - Name: Filomena Austin RN Position: [facility] RN Member Role: Primary Care Nurse Name: Venkatesh Tirado RN Position: [facility] Outreach Member Role: Primary Care Nurse Name: Maddy Skelton Position: [facility] RN Member Role: Primary Care Nurse Name: Elise Yao LPN Position: [facility] RN Member Role: Primary Care Nurse Name: Barak Shaw DO Position: [facility] Renal MD Member Role: Lifetime Consulting Physician Address: Address: [address] [facility] [place] [address]- Name: Tayla Fine Position: [facility] Outreach Member Role: Lifetime Consulting Physician Name: Niki Montes RN Position: [facility] RN Member Role: Primary Care Nurse Name: Stella Calhoun RN Position: [facility] RN Member Role: Primary Care Nurse Name: Wes Lezama Position: [facility] Associate Professional Member Role: Lifetime Consulting Provider Address: Address: [address] [place] [address]- [place] Name: Kinjal Macias RN Position: [facility] RN Member Role: Primary Care Nurse Name: Estephania Pizano RN Position: [facility] ED RN W/OE and Tasks Member Role: Primary Care Nurse Name: Zita Barrow RN Position: [facility] SN RN Member Role: Primary Care Nurse Name: Alexis Brooke MD Position: [facility] Renal MD Member Role: Lifetime Consulting Physician Address: Address: [address] [place] [address] [address] [facility] [place] [address]- Name: Chantelle Villareal RN Position: S RN Member Role: Primary Care Nurse Name: Brisa Michaels RN Position: S RN Member Role: Primary Care Nurse Name: London Chau RN Position: [facility] RN Member Role: Primary Care Nurse Name: Ana Schafer RN Position: [facility] RN Member Role: Primary Care Nurse Name: Liz Aguilera RN Position: [facility] Outreach Member Role: Lifetime Consulting Physician Name: Reyna Dumont RN Position: [facility] RN Member Role: Primary Care Nurse Name: Sudhir Chan Position: [facility] Outreach Member Role: Lifetime Consulting Physician Name: Roselia Crain RN Position: [facility] RN Member Role: Primary Care Nurse Name: Jorge Crews RN Position: [facility] RN Member Role: Primary Care Nurse Address: Address: [address] [place] [address]- [place] Name: Marcelo Joy MD Position: [facility] Renal MD Member Role: Lifetime Consulting Physician Address: Address: [address] [place] [address] [facility] [place] [address]- Name: Nell Copeland RN Position: [facility] RN Member Role: Primary Care Nurse Name: Star Hagen RN Position: [facility] RN Member Role: Primary Care Nurse Name: Odalis Roy RN Position: [facility] SN RN Member Role: Primary Care Nurse Name: Merline Carlson RN Position: [facility] RN Member Role: Primary Care Nurse Name: Serena Allen RN Position: [facility] Onco RN Member Role: Primary Care Nurse Name: Maura Tsang RN Position: [facility] RN Member Role: Primary Care Nurse Care Team Related Persons Name: KAYCE PARK Address: [address] [place] [address] Name: SANTIAGO NAZARIO Address: home [address] [place] [address]
--- OUTSIDE RECORDS SUMMARY | 2024-01-23 20:44 | XMS_ITS | Continuity of Care Document ---
Author Organization [facility] Address [address] [place] [address]- Care Team Providers Care Casing Wringer Operator Name Role Phone Krishna Tapia MD Primary Care Physician [phone] [id number] Date(s): 05/23/23 - 07/23/[address] [address]- Encounter Diagnosis Dependence on wheelchair(Final) - Discharge Disposition: A-D/C Home Attending Physician: [...] EDT, Capsule, [facility], Partial fill upon patient [...] Pharmacy Electronically, [facility], Partial fill upon patient [...] DAY, # 180 tablet, 1 Refills, [facility], 173,cm, 01/24/22 16:16:00 EDT, Height, 91.1, kg, [...] 11/07/22 16:29:00 EDT, Route to Pharmacy Electronically, [facility], Partial fill upon patient request if [...] 4 Refills, Maintenance, 06/24/23 12:07:00 EDT, Tablet, [facility], Partial fill upon patient request if [...] MRI Safety Implantable Status Assigning Authority Unknown [id number] Unknown Unknown 09/26/25 Unknown Unknown Active Unknown Patient Care team information Care Team Personnel Name: Wild Santos RN Position: [facility] RN Member Role: Primary Care Nurse Name: Lucy Garcia RN Position: [facility] RN Member Role: Primary Care Nurse Name: Julianna Mazariegos RN Position: [facility] RN Member Role: Primary Care Nurse Name: Simin Rosario RN Position: [facility] RN Member Role: Primary Care Nurse Name: Janie Kunz RN Position: S RN Member Role: Primary Care Nurse Name: Krishna Tapia MD Position: [facility] Outreach Member Role: PCP Address: Address: [address] [place] [address] Krishna Tapia MD [place], [place] - [place] Name: Miguelangel Cancino MD Position: [facility] Renal MD Member Role: Lifetime Consulting Physician Address: Address: [address] [place] [address] [address] [facility] [place], [place] - [place] Name: Lavonne Mckenzie RN Position: [facility] RN Member Role: Primary Care Nurse Name: Filomena Austin RN Position: S RN Member Role: Primary Care Nurse Name: Faby Guido RN Position: S RN Member Role: Primary Care Nurse Name: Maddy Skelton Position: S RN Member Role: Primary Care Nurse Name: Elise Yao LPN Position: S RN Member Role: Primary Care Nurse Name: Barak Shaw DO Position: [facility] Renal MD Member Role: Lifetime Consulting Physician Address: Address: [address] [place] [address] [address] [facility] [place] [address]- Name: Tayla Fine Position: [facility] Outreach Member Role: Lifetime Consulting Physician Name: Niki Montes RN Position: [facility] RN Member Role: Primary Care Nurse Name: Stella Calhoun RN Position: [facility] RN Member Role: Primary Care Nurse Name: Wes Lezama Position: [facility] Associate Professional Member Role: Lifetime Consulting Provider Address: Address: [address] [place] [address]- Name: Kinjal Macias RN Position: [facility] RN Member Role: Primary Care Nurse Name: Estephania Pizano RN Position: [facility] ED RN W/OE and Tasks Member Role: Primary Care Nurse Name: Zita Barrow RN Position: [facility] SN RN Member Role: Primary Care Nurse Name: Alexis Brooke MD Position: [facility] Renal MD Member Role: Lifetime Consulting Physician Address: Address: [address] [place] [address] [address] [facility] [place] [place] [address]- Name: Chantelle Villareal RN Position: [facility] RN Member Role: Primary Care Nurse Name: Brisa Michaels RN Position: S RN Member Role: Primary Care Nurse Name: London Chau RN Position: S RN Member Role: Primary Care Nurse Name: Ana Schafer RN Position: [facility] RN Member Role: Primary Care Nurse Name: Liz Aguilera RN Position: [facility] Outreach Member Role: Lifetime Consulting Physician Name: Sudhir Chan Position: [facility] Outreach Member Role: Lifetime Consulting Physician Name: Roselia Crain RN Position: [facility] RN Member Role: Primary Care Nurse Name: Jorge Crews RN Position: [facility] RN Member Role: Primary Care Nurse Address: Address: [address] [place] [address] Name: Marcelo Joy MD Position: [facility] Renal MD Member Role: Lifetime Consulting Physician Address: Address: [address] [place] [address] [facility] [place] [address]- Name: Nell Copeland RN Position: [facility] RN Member Role: Primary Care Nurse Name: Star Hagen RN Position: [facility] RN Member Role: Primary Care Nurse Name: Odalis Roy RN Position: [facility] SN RN Member Role: Primary Care Nurse Name: Merline Carlson RN Position: [facility] RN Member Role: Primary Care Nurse Name: Nupur Black RN Position: [facility] RN Member Role: Primary Care Nurse Name: Serena Allen RN Position: [facility] Onco RN Member Role: Primary Care Nurse Name: Maura Tsang RN Position: [facility] RN Member Role: Primary Care Nurse Care Team Related Persons Name: KAYCE PARK Address: [address] [place] [address] Name: SANTIAGO NAZARIO Address: [address] [place] [address]
[2024-01-23] MEDS: Acetaminophen 325 MG TABLET 975 MG PO (20:57)
[2024-01-23] MEDS: Lidocaine 4 % Patch ADH..PATCH 1 PATCH TRANSDERMA (20:58)
[2024-01-23] MEDS: Cyclobenzaprine HCl 10 MG TABLET PO (20:58)
[2024-01-23 21:03] VITALS: BP 133/68; PULSE 80; RESP 20; TEMP 36.5; O2SAT 97
== END 2024-01-23 21:04 | disposition home or self-care (01) ==
PROVIDERS: Emergency Provider Emergency Medicine Emergency Medical Services; PCP Internal Medicine
DX: S39.012A Strain of muscle, fascia and tendon of lower back, initial encounter (principal); S80.02XA Contusion of left knee, initial encounter; E11.22 Type 2 diabetes mellitus with diabetic chronic kidney disease; I12.9 Hypertensive chronic kidney disease with stage 1 through stage 4 chronic kidney disease, or unspecified chronic kidney disease; N18.9 Chronic kidney disease, unspecified; Z99.2 Dependence on renal dialysis; V89.2XXA Person injured in unspecified motor-vehicle accident, traffic, initial encounter; Y93.9 Activity, unspecified; Y92.410 Unspecified street and highway as the place of occurrence of the external cause; Y99.9 Unspecified external cause status
CPT/HCPCS: 72100; 73560; 99283

== ENCOUNTER 2024-02-06 11:11 | Outpatient (AMB) | payer OTHER, MEDICAID, SELFPAY ==
[2024-02-06 11:17] VITALS: BP 150/72; PULSE 79; RESP 14; O2SAT 96; BMI 32.7
--- NOTE | 2024-02-06 11:17 | A.OFFVIS_ITS ---
Vital Signs 02/06/24 11:17 Height 5 ft 8 in Weight 215 lb BMI 32.7 BP 150/72 H Blood Pressure Location Rt brachial Position Sitting Respiration 14 Pulse 79 Pulse Source Pulse Oximeter Pulse Oximetry (%) 96 Oxygen Delivery Method Room Air Intake Visit Reasons: SCS removal discussion Allergies cefazolin [From ANCEF] Allergy (Intermediate, Verified 02/10/24 15:52) ? ALLERGY-COUGH,SOB fentanyl [FENTANYL] Allergy (Intermediate, Verified 02/10/24 15:52) ? ALLERGY, COUGH,SOB pregabalin [From Lyrica] Allergy (Intermediate, Verified 02/10/24 15:52) Nausea Medication List - Last Reconciled 02/06/24 by Mackenzie Garcia LPN acetaminophen (Tylenol Extra Strength) 500 mg PO Q6H PRN albuterol sulfate 90 mcg/actuation 2 puffs inhalation Q4H PRN atorvastatin 40 mg PO DAILY brimonidine 0.2% 1 drp ophthalmic (eye) BID clindamycin HCl 300 mg PO TID clopidogrel 75 mg PO DAILY cyclobenzaprine 5 mg PO Q8H PRN cyclobenzaprine 5 mg PO Q8H PRN 5 days epoetin konrad 20,000 units subcut QWEEK ergocalciferol (vitamin D2) 1 cap PO DE OLIVEIRA fluticasone propion-salmeterol 250-50 mcg/dose (Advair Diskus) 1 ea inhalation BID folic acid 1 mg PO DAILY furosemide 1 tab PO DAILY gabapentin 100 mg PO TID gabapentin mg PO gabapentin 300 mg PO TID insulin lispro (Humalog U-100 Insulin) 500 units subcut Q3D latanoprost 0.005% 1 drp ophthalmic (eye) BEDTIME lidocaine 5% (Lidoderm) 1 patch topical DAILY PRN MDD remove after 12 hours lidocaine 5% (Lidoderm) 1 patch topical DAILY magnesium oxide 400 mg PO BID metoprolol succinate ER 100 mg PO DAILY mycophenolate sodium 3 tabs PO BID omeprazole 20 mg PO DAILY oxycodone 5 mg PO TID PRN sevelamer carbonate 1,600 mg PO TID sevelamer HCl 800 mg PO TID tamsulosin 0.4 mg PO DAILY HPI HPI SCS removal discussion: Details: 53-year-old male who presents today to discuss for SCS removal. He has a history of burning pain in both feet from diabetic neuropathy. He reports that he has not got relief with SCS and is here to discuss for removal. He reports when he stands or walks for too long, he has been experiencing severe pain at his pocket site. He notices severe foot pain. He found some relief initially with the SCS therapy but then states that he lost efficacy. His device has not been off for 3 months and he feels that it has not worsened his pain compared to the time that it was on. He has not recently charged his device. His main concern however is the pocket site pain as opposed to the lack of efficacy. [facility] Medical History Low back pain History of renal dialysis Uses walker CAD (coronary artery disease) On beta candelario at home GERD (gastroesophageal reflux disease) Elevated cholesterol Asthma Dependence on renal dialysis Neuropathy Diabetes HTN (hypertension) Glaucoma Kidney transplant rejection Kidney failure Surgical History S/P arteriovenous (AV) graft placement History of cardiac cath S/P trigger finger release History of kidney transplant Hx of colonoscopy History of esophagogastroduodenoscopy (EGD) Social History Are you a primary manager medicare marketing to a significant other at home: No Do you presently have visiting nurse or other home services: Yes Alcohol intake: never Patient Tobacco Use Status: Never used Tobacco Use of substances other than those prescribed or required for medical reasons: No Advance Directives: Yes Advance Directives on File: Yes Advance Directives Date on File: 02/20/21 Current occupational status: unemployed Current occupation: Right Handed Review of Systems Const All systems reviewed & are unremarkable except as noted in HPI and below Physical Exam Vital Signs: Last Vital Signs Pulse 79 02/06/24 11:17 Resp 14 02/06/24 11:17 BP 150/72 H 02/06/24 11:17 Pulse Ox 96 02/06/24 11:17 Oxygen Delivery Method Room Air 02/06/24 11:17 BMI result Body Mass Index 32.7 General: Appears afebrile. Alert and oriented. Mood and affect appropriate. Follows and participates in conversation appropriately. Respiratory effort is unlabored. Pocket site is tender to palpation. Assessment & Plan Assessment & Plan (1) Painful diabetic neuropathy: Code(s): E11.40 - Type 2 diabetes mellitus with diabetic neuropathy, unspecified Category: Medical Plan Recommend follow-up appointment with [employer] artist's representative to recharge and reprogramme SCS device and try for additional 1 month to assess whether we should plan for a complete explant versus pocket revision. I had a long discussion with the patient explaining the rationale for this course, including the irreversible nature of an SCS removal, and he is in agreement with the plan. Coding Level of Care Code Est Pt Level 4 (87918) Diagnoses Painful diabetic neuropathy E11.40
== END 2024-02-06 11:37 | disposition home or self-care (01) ==
PROVIDERS: PCP Internal Medicine; Visit Provider Internal Medicine
DX: E11.40 Type 2 diabetes mellitus with diabetic neuropathy, unspecified (principal)
CPT/HCPCS: 99214

== ENCOUNTER → 2024-02-06 11:11 | Outpatient (BNVA) | payer OTHER, MEDICAID, SELFPAY | PROVIDERS: PCP Internal Medicine; Visit Provider Internal Medicine ==

== ENCOUNTER 2024-02-10 14:52 | Emergency (ER) | payer OTHER, MEDICAID, SELFPAY ==
--- NOTE | ~2024-02-10 | CT_ITS ---
EXAMINATION: CT SHOULDER WITHOUT CONTRAST, RIGHT CLINICAL INFORMATION: Shoulder pain. Question fracture. Question fluid. COMPARISON: None available. TECHNIQUE: Axial imaging. Sagittal and coronal reconstructions. This CT examination was performed using dose optimization techniques as appropriate, variously including the following: *Automated exposure control *Adjustment of mA and/or kV according to patient size (this includes techniques or standardized protocols for targeted exams where dose is matched to indication/reason for exam; i.e. extremities or head) *Use of iterative reconstruction technique DLP: 1082 mGy-cm FINDINGS: Mild glenohumeral joint space loss.. No acute fracture is seen of the proximal humerus, the glenoid or scapular . Mild acromioclavicular arthritis. . No diastases of the acromioclavicular joint. No acute right scapular fracture. No acute fracture is identified of the visualized right ribs. No large glenohumeral joint effusion is seen, evaluation limited on CT. No measurable muscle tear is identified, evaluation limited by CT. There is limited evaluation of the rotator cuff tendons on CT. No axillary lymphadenopathy. No suspicious findings in the visualized lung. CT/CT shoulder RT wo IV con IMPRESSION: 1. No CT evidence of acute fracture or dislocation. 2. Mild right glenohumeral joint arthritis. 3. Mild acromioclavicular arthritis.
--- NOTE | ~2024-02-10 | CT_ITS ---
EXAMINATION: CT CERVICAL SPINE WITHOUT CONTRAST CLINICAL INFORMATION: Posterior neck pain. COMPARISON: CT of cervical spine from 05/08/2023. MRI of cervical spine from 05/24/2022. TECHNIQUE: Noncontrast multidetector CT imaging examination of the cervical spine is performed. Axial images and multiplanar reformatted images are reviewed. This CT examination was performed using dose optimization techniques as appropriate, variously including the following: *Automated exposure control *Adjustment of mA and/or kV according to patient size (this includes techniques or standardized protocols for targeted exams where dose is matched to indication/reason for exam; i.e. extremities or head) *Use of iterative reconstruction technique DLP: 23.39 mGy-cm for the topogram and 590.58 mGy-cm for the cervical spine CT (1082 mGy-cm total for exams of the cervical spine and shoulder) FINDINGS: The craniocervical junction is normal. The cervical vertebra have normal density, height and alignment. No evidence of fractures in the anterior or posterior elements. No prevertebral edema or soft tissue hematoma. The intervertebral disc heights are well-preserved. The facet joints are unremarkable. There is chronic calcium deposition around the dens, including along the transverse ligament posterior to the dens, consistent with calcium pyrophosphate dihydrate crystal deposition. Also, there are scattered foci of calcification involving ligamentum flavum and posterior longitudinal ligament. A few foci of higher density calcification along ligamenta flava likely represent calcium hydroxyapatite deposition. No acute findings compared to the prior imaging exams. There appears to be an old mild left paracentral disc protrusion at C4-C5. Some of the calcification posterior to C5-C6 might be related to an old paracentral disc extrusion seen on the MRI from 05/24/2022. There is chronic mild narrowing of the central spinal canal at C4-C5 and C5-C6. There is no significant narrowing of the neural foramina. No paraspinal soft tissue mass or paraspinal fluid collection. Thyroid gland is normal. The visualized lung apices are unremarkable. CT/CT cervical spine wo IV con IMPRESSION: * No specific source of posterior neck pain is identified. There is no acute osseous injury in the cervical spine. * There are scattered foci of calcium deposition along the ligaments of the thoracic spine. * There appears to be chronic mild thickening of the posterior longitudinal ligament at C4-C5 and C5-C6. This corresponds to the levels of mild disc herniations seen on 05/24/2022.
--- NOTE | ~2024-02-10 | XR_ITS ---
EXAMINATION: XR CHEST CLINICAL INFORMATION: Chest pain COMPARISON: Chest radiograph 02/03/2018 TECHNIQUE: 2 views of the chest were obtained. FINDINGS: No focal consolidation, pulmonary edema, or pleural effusion. Stable cardiomediastinal silhouette. Left axillary vascular stents. Lower thoracic stimulator leads. XR/XR chest 2V IMPRESSION: No acute cardiopulmonary findings.
--- NOTE | 2024-02-10 14:57 | ECG_ITS ---
Test Reason : CP Blood Pressure : / mmHG Vent. Rate : 081 BPM Atrial Rate : 081 BPM P-R Int : 164 ms QRS Dur : 090 ms QT Int : 404 ms P-R-T Axes : 014 -08 041 degrees QTc Int : 469 ms Normal sinus rhythm Minimal voltage criteria for LVH, may be normal variant ( R in aVL ) Nonspecific ST abnormality Abnormal ECG When compared with ECG of 04-JAN-2019 18:30, QT has lengthened Referred By: James Laughlin Electronically Signed By:Matthew Harrison
[2024-02-10 15:46] VITALS: BP 117/35; PULSE 77; RESP 18; TEMP 37.1; O2SAT 98; BMI 33.7
[2024-02-10 15:59] LABS: Troponin-I High Sensitivity 31.7 ng/L (<3.5-35.0)
[2024-02-10 16:07] LABS: B Type Natriuretic Peptide 261 pg/mL (<100)
--- NOTE | 2024-02-10 16:07 | ED.CHESTPAIN ---
HPI - Chest Pain General Chief Complaint: Chest Pain Stated Complaint: chest neck and shoulder pain nausea Time Seen by Provider: 02/10/24 19:33 Source: patient Mode of arrival: ambulatory History of Present Illness ED Provider: Dr Perry HPI narrative: 53-year-old male who presents with needing and evaluation of right shoulder and neck pain/chest pain that has not been associated with fever, chills and denies any traumatic injury. Patient did receive treatment with Bactrim for a right-hand cellulitis approximately 1 week ago. Patient is on dialysis with a Friday/Friday/Friday schedule and states that he went to dialysis today. Patient reports that at [facility] an ultrasound was negative for clot and patient's primary care doctor once a CT scan of the shoulder and arm. Related Data Home Medications ?Medication ?Instructions ?Recorded ?Confirmed brimonidine 0.2 % eye drops 1 drp ophthalmic (eye) BID 01/30/21 02/06/24 ergocalciferol (vitamin D2) 1,250 1 cap PO DE OLIVEIRA 01/30/21 02/06/24 mcg (50,000 unit) capsule insulin lispro 100 unit/mL 500 unit subcut Q3D insulin pump 01/30/21 02/06/24 subcutaneous solution (Humalog U-100 Insulin) latanoprost 0.005 % eye drops 1 drp ophthalmic (eye) BEDTIME 01/30/21 02/06/24 mycophenolate sodium 180 mg 3 tab PO BID 01/30/21 02/06/24 tablet,delayed release furosemide 80 mg tablet 1 tab PO DAILY 02/20/21 02/06/24 albuterol sulfate 90 mcg/actuation 2 puff inhalation Q4H PRN Wheezing 07/22/22 02/06/24 aerosol inhaler atorvastatin 40 mg tablet 40 mg PO DAILY 07/22/22 02/06/24 clopidogrel 75 mg tablet 75 mg PO DAILY 07/22/22 02/06/24 epoetin konrad 40,000 unit/mL 20,000 unit subcut QWEEK 07/22/22 02/06/24 injection solution fluticasone 250 mcg-salmeterol 50 1 ea inhalation BID 07/22/22 02/06/24 mcg/dose blistr powdr for inhalation (Advair Diskus) folic acid 1 mg tablet 1 mg PO DAILY 07/22/22 02/06/24 gabapentin 100 mg capsule 100 mg PO TID 07/22/22 02/06/24 magnesium oxide 400 mg (241.3 mg 400 mg PO BID 07/22/22 02/06/24 magnesium) tablet metoprolol succinate 100 mg 100 mg PO DAILY 07/22/22 02/06/24 tablet,extended release 24 hr sevelamer HCl 800 mg tablet 800 mg PO TID 07/22/22 02/06/24 tamsulosin 0.4 mg capsule 0.4 mg PO DAILY 07/22/22 02/06/24 omeprazole 20 mg capsule,delayed 20 mg PO DAILY 02/07/23 02/06/24 release gabapentin 300 mg capsule 300 mg PO TID 06/09/23 02/06/24 gabapentin 600 mg tablet mg PO 06/09/23 02/06/24 sevelamer carbonate 800 mg tablet 1,600 mg PO TID 06/09/23 02/06/24 Previous Rx's ?Medication ?Instructions ?Recorded acetaminophen 500 mg tablet 500 mg PO Q6H PRN fever or pain 05/08/23 (Tylenol Extra Strength) #14 tabs cyclobenzaprine 5 mg tablet 5 mg PO Q8H PRN pain (scale score 05/08/23 7-10) 5 days #14 tabs lidocaine 5 % topical patch 1 patch topical DAILY PRN pain #30 05/08/23 (Lidoderm) ea clindamycin HCl 300 mg capsule 300 mg PO TID #21 caps 05/28/23 oxycodone 5 mg tablet 5 mg PO TID PRN pain #20 tabs 05/28/23 cyclobenzaprine 5 mg tablet 5 mg PO Q8H PRN muscle spasm #10 01/23/24 tabs lidocaine 5 % topical patch 1 patch topical DAILY #15 ea 01/23/24 (Lidoderm) Allergies Allergy/AdvReac Type Severity Reaction Status Date / Time cefazolin [From ANCEF] Allergy Intermediate ? Verified 02/10/24 15:52 ALLERGY-COUGH,SOB fentanyl [FENTANYL] Allergy Intermediate ? ALLERGY, Verified 02/10/24 15:52 COUGH,SOB pregabalin [From Lyrica] Allergy Intermediate Nausea Verified 02/10/24 15:52 Review of Systems Review of Systems: Pertinent positives and negatives as stated in [facility] Past Medical History Source: nursing notes reviewed Medical History Low back pain History of renal dialysis Uses walker CAD (coronary artery disease) On beta candelario at home GERD (gastroesophageal reflux disease) Elevated cholesterol Asthma Dependence on renal dialysis Neuropathy Diabetes HTN (hypertension) Glaucoma Kidney transplant rejection Kidney failure Surgical History S/P arteriovenous (AV) graft placement History of cardiac cath S/P trigger finger release History of kidney transplant Hx of colonoscopy History of esophagogastroduodenoscopy (EGD) Social History Social History Are you a primary childcare center director to a significant other at home: No Do you presently have visiting nurse or other home services: Yes Alcohol intake: never Patient Tobacco Use Status: Never used Tobacco Use of substances other than those prescribed or required for medical reasons: No Advance Directives: Yes Advance Directives on File: Yes Advance Directives Date on File: 02/20/21 Current occupational status: unemployed Current occupation: Right Handed Physical Exam Vital Signs: Vital Signs: Last Vital Signs Temp 98.4 F 02/11/24 00:39 Pulse 80 02/11/24 00:39 Resp 13 02/11/24 00:39 BP 132/68 02/11/24 00:39 Pulse Ox 96 02/11/24 00:39 O2 Del Method Room Air 02/11/24 00:39 BMI result Body Mass Index 33.7 VITAL SIGNS: Reviewed. GENERAL: Well developed, well nourished, in no acute distress. HEAD: Normocephalic/atraumatic, EYES: PERRLA, EOMI EARS: Ext canals without abnormality NOSE: Nares patent bilateral OROPHARYNX: no oral lesions noted, posterior pharynx clear NECK: Supple, no adenopathy LUNGS: Normal breath sounds. No adventitious sounds or accessory muscle use. SpO2<97> CARDIOVASCULAR: Regular rate and rhythm without noted murmurs ABDOMEN: Soft, non-tender, non-distended with bowel sounds. MUSCULOSKELETAL: No tenderness, deformities, or effusions noted on gross inspection. EXTREMITIES: No cyanosis, clubbing or edema. LUE: AV fistula with thrill and bruit present RIGHT SHOULDER: No obvious deformity, no erythema/induration SKIN: Inspection of the skin reveals no rashes NEUROLOGIC: Alert and oriented x 4. Strength and sensation to light touch were grossly intact x 4. Course Course Course Narrative: RME: Done by WILI Tsai. EKG and labs were drawn before patient gave his history. We will inform patient came in for chest pain. Lela patient presents to ED for right shoulder right posterior neck pain for the past couple of days. Patient states painful turning neck to the left. Patient denies any headache or fever or chills. Patient was seen at [facility] had normal right upper extremity ultrasound. Primary care provider Dr. Tapia sent patient to the ED for evaluation. Positive for posterior neck and right shoulder tenderness on palpation. Dr. Tapia PCP wants CT scan of the shoulder. Medications Administered Discontinued Medications Generic Name Dose Route Start Last Admin Trade Name Freq PRN Reason Stop Dose Admin Acetaminophen 975 mg 02/10/24 23:50 02/11/24 00:24 Acetaminophen 325 Mg Tablet PO 02/10/24 23:51 975 mg ONCE ONE Administration Lidocaine 1 patch 02/10/24 23:50 02/11/24 00:24 Lidocaine 4 % Patch Adh..Patch TRANSDERMA 02/10/24 23:51 1 patch ONCE ONE Administration Protocol Medical Decision Making Medical Decision Making MDM Narrative: 53-year-old male with history and clinical presentation, DDX: Fracture/dislocation felt to be less likely but will evaluate with imaging studies, neurovascularly intact distal within the right upper extremity and reportedly no issues found on recent extremity duplex study. Patient has had no fevers or chills and no new cough. Reviewed all investigations and hematologic indices are chronically stable without leukocytosis and there is a macrocytic anemia with no thrombocytopenia. Coagulation studies are within normal limits. Chemistry indices demonstrate evidence of mild dehydration, there is no electrolyte derangements and patient is renal studies are consistent with underlying ESRD on dialysis. There is a noted hyperglycemia without evidence of DKA or HHS. There are noted elevated transaminases however this is not associated with any right upper quadrant pain/fever/chills and although BNP is elevated this is felt to be reflective of patient's kidney function at this time as lungs are clear and there is no evidence of rales/tachypnea or hypoxia. Viral testing is negative for COVID-19/influenza and chest x-ray is negative for infiltrate or venous congestion. CT scan of the cervical spine and shoulder do not demonstrate any acute pathology other than arthritis. Patient received Tylenol and lidocaine patch and is otherwise discharged home with instructions to follow-up with Dr. Tapia and pursue physical therapy. Differential Diagnosis Differential Diagnoses: The differential diagnosis associated with the presentation includes Admission/Observation Consideration of admission/observation: Escalation of care including admission/observation considered Please see the discussion above Lab Data MDM Lab Attestation statement: I reviewed the patient's lab results. Please see the discussion above 02/10/24 16:36 02/10/24 15:31 Labs: Lab Results 02/10/24 02/10/24 02/10/24 Range/Units 15:31 15:39 16:36 WBC 6.9 (4.8-10.8) X10*3/uL RBC 2.62 L (4.60-5.80) X10*6/uL Hgb 8.6 L (14.0-18.0) g/dl Hct 26.3 L (42.0-52.0) % MCV 100.4 H (80.0-98.0) fL MCH 32.8 (27.0-33.0) pg MCHC 32.7 (31.0-36.0) g/dl RDW 15.7 (11.0-16.0) % Plt Count 228 (160-400) X10*3/uL MPV 9.7 (9.4-12.4) fL Immature Gran % (Auto) 0.4 (0.0-0.4) % Neut % (Auto) 74.2 H (45-73) % Lymph % (Auto) 11.7 L (20-40) % [place] % (Auto) 9.6 (2-11) % Eos % (Auto) 3.8 (0-4) % Baso % (Auto) 0.3 (0-2) % Lymph # (Auto) 0.8 L (1.2-4.9) X10*3/uL [place] # (Auto) 0.7 (0.1-1.2) X10*3/uL Eos # (Auto) 0.3 (0.0-0.4) X10*3/uL Baso # (Auto) 0.0 (0.0-0.2) X10*3/uL Abs Immat Gran (auto) 0.03 (0.00-0.03) X10*3/uL Absolute Neuts (auto) 5.1 (2.0-8.3) x10*3/uL Absolute Nucleated RBC 0.000 (0.0-0.012) X10*3/uL Nucleated RBC % (auto) 0.0 (0.0-0.2) /100WBC PT 11.8 (11.1-13.3) SEC INR 1.0 (0.9-1.1) APTT 30.7 (26.0-36.8) SEC Sodium 134 L (135-145) mmol/L Potassium 5.0 (3.3-5.1) mmol/L Chloride 92 L (96-108) mmol/L Carbon Dioxide 28 (22-29) mmol/L Anion Gap 19 (12-20) BUN 38 H (9-16) mg/dL Creatinine 9.30 H* (0.5-1.4) mg/dL Estim Creat Clear Calc 10.5 Estimated GFR 6 POC Glucose (60-115) mg/dL Random Glucose 340 H (60-115) mg/dL Calcium 9.1 D (8.4-10.2) mg/dL Total Bilirubin 0.4 (0.0-1.0) mg/dL AST 41 H (5-37) U/L ALT 41 H (0-40) U/L Alkaline Phosphatase 78 (39-117) U/L Troponin I High Sens 31.7 (<3.5-35.0) ng/L B-Natriuretic Peptide 261 H (<100) pg/mL Total Protein 8.3 H (6.5-8.0) g/dL Albumin 3.9 (3.5-5.0) g/dL COVID-19 (BALDEV) (Negative) COVID-19 Clin Com Influenza Type A (JOANIE) (Negative) Influenza Type B (JOANIE) (Negative) Influenza A & B Note 02/10/24 02/10/24 Range/Units 21:23 21:53 WBC (4.8-10.8) X10*3/uL RBC (4.60-5.80) X10*6/uL Hgb (14.0-18.0) g/dl Hct (42.0-52.0) % MCV (80.0-98.0) fL MCH (27.0-33.0) pg MCHC (31.0-36.0) g/dl RDW (11.0-16.0) % Plt Count (160-400) X10*3/uL MPV (9.4-12.4) fL Immature Gran % (Auto) (0.0-0.4) % Neut % (Auto) (45-73) % Lymph % (Auto) (20-40) % [place] % (Auto) (2-11) % Eos % (Auto) (0-4) % Baso % (Auto) (0-2) % Lymph # (Auto) (1.2-4.9) X10*3/uL [place] # (Auto) (0.1-1.2) X10*3/uL Eos # (Auto) (0.0-0.4) X10*3/uL Baso # (Auto) (0.0-0.2) X10*3/uL Abs Immat Gran (auto) (0.00-0.03) X10*3/uL Absolute Neuts (auto) (2.0-8.3) x10*3/uL Absolute Nucleated RBC (0.0-0.012) X10*3/uL Nucleated RBC % (auto) (0.0-0.2) /100WBC PT (11.1-13.3) SEC INR (0.9-1.1) APTT (26.0-36.8) SEC Sodium (135-145) mmol/L Potassium (3.3-5.1) mmol/L Chloride (96-108) mmol/L Carbon Dioxide (22-29) mmol/L Anion Gap (12-20) BUN (9-16) mg/dL Creatinine (0.5-1.4) mg/dL Estim Creat Clear Calc Estimated GFR POC Glucose 150 H (60-115) mg/dL Random Glucose (60-115) mg/dL Calcium (8.4-10.2) mg/dL Total Bilirubin (0.0-1.0) mg/dL AST (5-37) U/L ALT (0-40) U/L Alkaline Phosphatase (39-117) U/L Troponin I High Sens (<3.5-35.0) ng/L B-Natriuretic Peptide (<100) pg/mL Total Protein (6.5-8.0) g/dL Albumin (3.5-5.0) g/dL COVID-19 (BALDEV) Negative (Negative) COVID-19 Clin Com See Note Influenza Type A (JOANIE) Negative (Negative) Influenza Type B (JOANIE) Negative (Negative) Influenza A & B Note See Note Radiology Impression Discussion of test interpretation with radiology: I have reviewed the radiologist's reading. Radiologist Impression: Please see the discussion above External Record Review External record reviewed: Outpatient record, Prior outpatient labs and Prior outpatient radiology Chronic Conditions Patient?s care impacted by: Diabetes and Hypertension ESRD on dialysis Critical Care Time Critical Care Time Critical Care Time: Yes Total Critical Care Time: 45 Attestation: I personally attest to this time spent taking care of the patient. Discharge Plan Discharge Clinical Impression: Pain in right shoulder Patient Disposition: Home, Self-Care Instructions: Arthralgia (ED), Shoulder Pain (ED) Additional Instructions: 1. Resume all home medications as prescribed. 2. Recommend that you follow-up with your primary care doctor and discuss possibility of physical therapy. Return to the ER for any worsening symptoms. Prescriptions: No Action latanoprost 0.005 % drops 1 drp ophthalmic (eye) BEDTIME Rx Instructions: both eye brimonidine 0.2 % drops 1 drp ophthalmic (eye) BID Rx Instructions: each eye ergocalciferol (vitamin D2) 1,250 mcg (50,000 unit) capsule 1 cap PO DE OLIVEIRA mycophenolate sodium 180 mg tablet,delayed release (DR/EC) 3 tab PO BID insulin lispro [Humalog U-100 Insulin] 100 unit/mL Solution 500 unit SUBCUT Q3D Rx Instructions: uses to refill insulin pump furosemide 80 mg tablet 1 tab PO DAILY clindamycin HCl 300 mg capsule 300 mg PO TID Qty: 21 0RF oxycodone 5 mg tablet 5 mg PO TID PRN (Reason: pain) Qty: 20 0RF Rx Instructions: Partial Fill upon patient request. cyclobenzaprine 5 mg tablet 5 mg PO Q8H PRN (Reason: muscle spasm) Qty: 10 0RF lidocaine [Lidoderm] 5 % adhesive patch,medicated 1 patch topical DAILY Qty: 15 0RF Rx Instructions: leave on most painful area for up to 12 hrs omeprazole 20 mg capsule,delayed release(DR/EC) 20 mg PO DAILY acetaminophen [Tylenol Extra Strength] 500 mg tablet 500 mg PO Q6H PRN (Reason: fever or pain) Qty: 14 0RF lidocaine [Lidoderm] 5 % adhesive patch,medicated 1 patch topical DAILY MDD remove after 12 hours PRN (Reason: pain) Qty: 30 0RF Rx Instructions: leave on most painful area for up to 12 hrs cyclobenzaprine 5 mg tablet 5 mg PO Q8H PRN (Reason: pain (scale score 7-10)) 5 Days Qty: 14 0RF albuterol sulfate 90 mcg/actuation HFA aerosol inhaler 2 puff inhalation Q4H PRN (Reason: Wheezing) atorvastatin 40 mg tablet 40 mg PO DAILY clopidogrel 75 mg tablet 75 mg PO DAILY fluticasone propion-salmeterol [Advair Diskus] 250-50 mcg/dose blister with device 1 ea inhalation BID folic acid 1 mg tablet 1 mg PO DAILY magnesium oxide 400 mg (241.3 mg magnesium) tablet 400 mg PO BID tamsulosin 0.4 mg capsule 0.4 mg PO DAILY sevelamer HCl 800 mg tablet 800 mg PO TID gabapentin 100 mg capsule 100 mg PO TID metoprolol succinate 100 mg tablet extended release 24 hr 100 mg PO DAILY epoetin konrad 40,000 unit/mL solution 20,000 unit subcut QWEEK sevelamer carbonate 800 mg tablet 1,600 mg PO TID gabapentin 300 mg capsule 300 mg PO TID gabapentin 600 mg tablet PO Referrals: Krishna Tapia MD [Primary Care Provider] - Interventions: ED Discharge Assessment Last Done: 02/11/24 00:39 Discharge Date/Time: 02/11/24 00:40 Print Language: Korean
[2024-02-10 16:33] LABS: Alanine Aminotransferase 41 U/L (0-40); Albumin Level 3.9 g/dL (3.5-5.0); Alkaline Phosphatase 78 U/L (39-117); Anion Gap 19 (12-20); Aspartate Amino Transferase 41 U/L (5-37); Bilirubin Total 0.4 mg/dL (0.0-1.0); Blood Urea Nitrogen 38 mg/dL (9-16); Calcium 9.1 mg/dL (8.4-10.2); Carbon Dioxide 28 mmol/L (22-29); Chloride 92 mmol/L (96-108); Creatinine Clr Calc Pharmacy 10.5; Estimated Glomerular Filt Rate 6; Glucose Random 340 mg/dL (60-115); Sodium 134 mmol/L (135-145); Total Protein 8.3 g/dL (6.5-8.0)
[2024-02-10 17:22] LABS: Basophils Percent Auto 0.3 % (0-2); Eosinophils Absolute Auto 0.3 X10*3/uL (0.0-0.4); Eosinophils Percent Auto 3.8 % (0-4); Hematocrit 26.3 % (42.0-52.0); Hemoglobin 8.6 g/dl (14.0-18.0); Imm Gran Abs Auto 0.03 X10*3/uL (0.00-0.03); Imm Gran Pct Auto 0.4 % (0.0-0.4); Lymphocytes Absolute Auto 0.8 X10*3/uL (1.2-4.9); Lymphocytes Percent Auto 11.7 % (20-40); Mean Corpuscular HGB Conc 32.7 g/dl (31.0-36.0); Mean Corpuscular Hemoglobin 32.8 pg (27.0-33.0); Mean Corpuscular Volume 100.4 fL (80.0-98.0); Mean Platelet Volume 9.7 fL (9.4-12.4); Monocytes Absolute Auto 0.7 X10*3/uL (0.1-1.2); Monocytes Percent Auto 9.6 % (2-11); Neutrophils Absolute Auto 5.1 x10*3/uL (2.0-8.3); Neutrophils Percent Auto 74.2 % (45-73); Platelet Count 228 X10*3/uL (160-400); Red Blood Count 2.62 X10*6/uL (4.60-5.80); Red Cell Distribution Width 15.7 % (11.0-16.0); White Blood Count 6.9 X10*3/uL (4.8-10.8)
[2024-02-10 17:49] LABS: Prothrombin Time 11.8 SEC (11.1-13.3)
[2024-02-10 17:52] LABS: Partial Thromboplastin Time 30.7 SEC (26.0-36.8)
[2024-02-10 18:27] LABS: MANUAL DIFF FLAG NO
[2024-02-10 19:36] VITALS: BP 102/44; PULSE 73; RESP 16; TEMP 36.8; O2SAT 97
--- NOTE | 2024-02-10 19:36 | MHC.EDTECH ---
Patient states he can not have blood pressure or blood draws on his left arm due to dialysis port.
[2024-02-10 21:27] LABS: Glucose, Whole Blood 150 mg/dL (60-115)
--- NOTE | 2024-02-10 22:10 | PC.NURSE ---
Patient very needy, regularly ringing [employer] for incidental needs, continues to complain of 8/10 pain, now states his usual dialysis schedule is T/T/Fri, missed 's session d/t his port being clotted off, had emergency surgery and [place] vascular services Friday, went to dialysis on Friday.
[2024-02-10 22:16] VITALS: BP 141/72; PULSE 71; RESP 15; TEMP 36.8; O2SAT 97
[2024-02-10 22:32] LABS: COVID-19 Test Negative (Negative); IDNOW Serial# 6674DD1D
[2024-02-10 22:33] LABS: IDNOW Serial# 9DB6401D; Influenza A Negative (Negative); Influenza B2 Negative (Negative)
[2024-02-11] VITALS: BP 132/68; PULSE 80; RESP 13; TEMP 36.9; O2SAT 96
[2024-02-11] MEDS: Lidocaine 4 % Patch ADH..PATCH 1 PATCH TRANSDERMA (00:24)
[2024-02-11] MEDS: Acetaminophen 325 MG TABLET 975 MG PO (00:24)
[2024-02-11 00:39] VITALS: BP 132/68; PULSE 80; RESP 13; TEMP 36.9; O2SAT 96
== END 2024-02-11 00:40 | disposition home or self-care (01) ==
PROVIDERS: Physician Assistant; Emergency Provider Student in an Organized Health Care Education/Training Program; PCP Internal Medicine
DX: M25.511 Pain in right shoulder (principal); R07.9 Chest pain, unspecified; E11.9 Type 2 diabetes mellitus without complications; I10 Essential (primary) hypertension; E78.5 Hyperlipidemia, unspecified; Z11.52 Encounter for screening for COVID-19; Z79.4 Long term (current) use of insulin; Z79.899 Other long term (current) drug therapy; Z79.02 Long term (current) use of antithrombotics/antiplatelets
CPT/HCPCS: 36415; 71046; 72125; 73200; 80053; 82947; 83880; 84484; 85025; 85610; 85730; 87502; 87635; 93005; 99285

== ENCOUNTER → 2024-02-10 14:57 | Outpatient (BNV) | payer OTHER, MEDICAID, SELFPAY | PROVIDERS: PCP Internal Medicine; Visit Provider Internal Medicine Cardiovascular Disease | DX: R94.31 Abnormal electrocardiogram [ECG] [EKG] (principal) | CPT/HCPCS: 93010 ==

== ENCOUNTER 2024-03-01 11:09 | Outpatient (AMB) | payer OTHER, MEDICAID, SELFPAY ==
--- NOTE | 2024-03-01 11:11 | A.OFFVIS_ITS ---
Vital Signs 03/01/24 11:14 Height 5 ft 8 in Weight 220 lb BMI 33.4 BP 140/88 H Blood Pressure Location Rt brachial Position Sitting Respiration 14 Pulse 85 Pulse Source Pulse Oximeter Pulse Oximetry (%) 97 Oxygen Delivery Method Room Air Intake Visit Reasons: 3 Week Follow Up Allergies cefazolin [From ANCEF] Allergy (Intermediate, Verified 03/01/24 11:15) ? ALLERGY-COUGH,SOB fentanyl [FENTANYL] Allergy (Intermediate, Verified 03/01/24 11:15) ? ALLERGY, COUGH,SOB pregabalin [From Lyrica] Allergy (Intermediate, Verified 03/01/24 11:15) Nausea Medication List - Last Reconciled 03/01/24 by Mackenzie Garcia LPN acetaminophen (Tylenol Extra Strength) 500 mg PO Q6H PRN albuterol sulfate 90 mcg/actuation 2 puffs inhalation Q4H PRN atorvastatin 40 mg PO DAILY brimonidine 0.2% 1 drp ophthalmic (eye) BID clindamycin HCl 300 mg PO TID clopidogrel 75 mg PO DAILY cyclobenzaprine 5 mg PO Q8H PRN cyclobenzaprine 5 mg PO Q8H PRN 5 days epoetin konrad 20,000 units subcut QWEEK ergocalciferol (vitamin D2) 1 cap PO DE OLIVEIRA fluticasone propion-salmeterol 250-50 mcg/dose (Advair Diskus) 1 ea inhalation BID folic acid 1 mg PO DAILY furosemide 1 tab PO DAILY gabapentin 100 mg PO TID gabapentin mg PO gabapentin 300 mg PO TID insulin lispro (Humalog U-100 Insulin) 500 units subcut Q3D latanoprost 0.005% 1 drp ophthalmic (eye) BEDTIME lidocaine 5% (Lidoderm) 1 patch topical DAILY PRN MDD remove after 12 hours lidocaine 5% (Lidoderm) 1 patch topical DAILY magnesium oxide 400 mg PO BID metoprolol succinate ER 100 mg PO DAILY mycophenolate sodium 3 tabs PO BID omeprazole 20 mg PO DAILY oxycodone 5 mg PO TID PRN sevelamer carbonate 1,600 mg PO TID sevelamer HCl 800 mg PO TID tamsulosin 0.4 mg PO DAILY HPI HPI 3 Week Follow Up: Details: 53-year-old male who presents today to the office for a three week follow up. He has not charged the device for about six months. The devices were charged in the office today. He reports pain in his low back and buttock region at the site of the IPG when standing, walking, and sitting. Past Procedures: 05/28/23: Nevro Lumbar SCS Implant ? 70% pain relief??? 03/28/23: Nevro Lumbar SCS Trial-80-90% pain relief [facility] Medical History Low back pain History of renal dialysis Uses walker CAD (coronary artery disease) On beta candelario at home GERD (gastroesophageal reflux disease) Elevated cholesterol Asthma Dependence on renal dialysis Neuropathy Diabetes HTN (hypertension) Glaucoma Kidney transplant rejection Kidney failure Surgical History S/P arteriovenous (AV) graft placement History of cardiac cath S/P trigger finger release History of kidney transplant Hx of colonoscopy History of esophagogastroduodenoscopy (EGD) Social History Are you a primary career orientation teacher to a significant other at home: No Do you presently have visiting nurse or other home services: Yes Alcohol intake: never Patient Tobacco Use Status: Never used Tobacco Advance Directives Date on File: 02/20/21 Current occupational status: unemployed Current occupation: Right Handed Review of Systems Const All systems reviewed & are unremarkable except as noted in HPI and below Physical Exam Vital Signs: Last Vital Signs Pulse 85 03/01/24 11:14 Resp 14 03/01/24 11:14 BP 140/88 H 03/01/24 11:14 Pulse Ox 97 03/01/24 11:14 Oxygen Delivery Method Room Air 03/01/24 11:14 BMI result Body Mass Index 33.4 General: Appears afebrile. Alert and oriented. Mood and affect appropriate. Follows and participates in conversation appropriately. Respiratory effort is unlabored. Able to transition from sit to stand unassisted. Ambulates with bilaterally normal heel strike and toe off. No significant tenderness overlying the IPG site. Results Reviewed Results Reviewed: No imaging is available for review. Assessment & Plan Assessment & Plan (1) Painful diabetic neuropathy: Code(s): E11.40 - Type 2 diabetes mellitus with diabetic neuropathy, unspecified Category: Medical Plan The SCS was reprogrammed in the office today by the [employer] sales representative. He will continue using the device for the next two to three weeks and then get back to us in terms of whether it is helping with his pain symptoms at all or not. If it is helpful for his chronic pain symptoms, then we will plan on revising the IPG pocket site and potentially moving the IPG to a higher location. If he does not find benefit in terms of his chronic pain symptoms from the SCS therapy, then we will plan on removing the system. Scribed for Dr. Blackman by Jhonny Pruitt, medical device sales, on 03/01/2024. I, Dr. Blackman, have personally reviewed and agree with the information entered by the scribe. Coding Level of Care Code Est Pt Level 3 (76179) Diagnoses Painful diabetic neuropathy E11.40
--- OUTSIDE RECORDS SUMMARY | 2024-03-01 11:11 | XMS_ITS | Continuity of Care Document ---
Author Organization [facility] Address [address] [facility] [facility], [address] d Floor, [address] [place] [id number]- Care Team Providers Care Waitress Name Role Phone Krishna Tapia MD Primary Care Physician [place] [facility] [place]): [place]23 - 01/28/24 [facility] [address] 3rd Floor, [address] [place] [address]- Attending Physician: Ap Trujillo MD Admitting Physician: Ap Trujillo MD Referring Physician: Krishna Tapia MD Allergies, [...] 12/31/23 15:18:00 EDT, Route to Pharmacy Electronically, [facility], this is a dose change, please cancel prescription for furosemide 80mg, 173, cm, 050... Start Date: 12/31/23 Stop Date: 01/30/24 Status: Ordered gabapentin 300 mg oral capsule 300 mg, 1, capsule, By Mouth, 3 times a day, # 90 capsule, Refills 0, Tot. Refills 0, Maintenance, 08/29/22 8:44:00 EST, Route to Pharmacy Electronically, [facility], Partial fill upon patient request if [...] 12/31/23 15:17:00 EDT, Route to Pharmacy Electronically, [facility], This is a dose change, please [...] 1 Refills, Maintenance, 12/31/23 13:15:00 EDT, Capsule, [facility], Partial fill upon patient request if [...] MRI Safety Implantable Status Assigning Authority Unknown [id number] Unknown Unknown 09/26/25 Unknown Unknown Active Unknown Patient Care team information Care Team Personnel Name: Wild Santos RN Position: [facility] RN Member Role: Primary Care Nurse Name: Dolly Mccormick RN Position: [facility] RN Member Role: Primary Care Nurse Name: Lucy Garcia RN Position: [facility] ED RN W/OE and Tasks Member Role: Primary Care Nurse Name: Julianna Mazariegos RN Position: [facility] RN Member Role: Primary Care Nurse Name: Simin Rosario RN Position: [facility] RN Member Role: Primary Care Nurse Name: Nupur Young RN Position: [facility] RN Member Role: Primary Care Nurse Name: Faby Saleh RN Position: [facility] RN Member Role: Primary Care Nurse Name: Janie Kunz RN Position: [facility] RN Member Role: Primary Care Nurse Name: Krishna Tapia MD Position: [facility] Outreach Member Role: PCP Address: Address: [address] [facility] [place] [address]- Name: Estella Mann Position: [facility] Associate Professional Member Role: Lifetime Consulting Provider Address: Address: [address] [place] [address] [address] [facility] [place] [address]- [place] Name: Miguelangel Cancino MD Position: [facility] Renal MD Member Role: Lifetime Consulting Physician Address: Address: [address] [place] [address] [address] [facility] [place] [address]- [place] Name: Filomena Austin RN Position: [facility] RN Member Role: Primary Care Nurse Name: Venkatesh Tirado RN Position: [facility] Outreach Member Role: Primary Care Nurse Name: Maddy Skelton Position: [facility] RN Member Role: Primary Care Nurse Name: Elise Yao LPN Position: [facility] RN Member Role: Primary Care Nurse Name: Barak Shaw DO Position: [facility] Renal MD Member Role: Lifetime Consulting Physician Address: Address: [address] [place] [address] [address] [facility] [place] [address]- Name: Tayla Fine Position: [facility] Outreach Member Role: Lifetime Consulting Physician Name: Niki Montes RN Position: [facility] RN Member Role: Primary Care Nurse Name: Stella Calhoun RN Position: [facility] RN Member Role: Primary Care Nurse Name: Wes Lezama Position: [facility] Associate Professional Member Role: Lifetime Consulting Provider Address: Address: [address] [place] [address]- Name: Kinjal Macias RN Position: [facility] RN Member Role: Primary Care Nurse Name: Estephania Pizano RN Position: [facility] ED RN W/OE and Tasks Member Role: Primary Care Nurse Name: Zita Barrow RN Position: [facility] AMB Nurse Member Role: Primary Care Nurse Name: Alexis Brooke MD Position: [facility] Renal MD Member Role: Lifetime Consulting Physician Address: Address: [address] [place] [address] [address] [facility] [place] [address]- Name: Chantelle Villareal RN Position: [facility] RN Member Role: Primary Care Nurse Name: Brisa Michaels RN Position: [facility] RN Member Role: Primary Care Nurse Name: London Chau RN Position: [facility] RN Member Role: Primary Care Nurse Name: Neelima Fritz RN Position: [facility] RN Member Role: Primary Care Nurse Name: Ana Shcafer RN Position: [facility] RN Member Role: Primary Care Nurse Name: Liz Aguilera RN Position: [facility] Outreach Member Role: Lifetime Consulting Physician Name: Reyna Dumont RN Position: [facility] RN Member Role: Primary Care Nurse Name: Sudhir Chan Position: S Outreach Member Role: Lifetime Consulting Physician Name: Roselia Crain RN Position: [facility] RN Member Role: Primary Care Nurse Name: Marcelo Joy MD Position: [facility] Renal MD Member Role: Lifetime Consulting Physician Address: Address: [address] [place] [address] [facility] [address] Name: Nell Copeland RN Position: [facility] RN Member Role: Primary Care Nurse Name: Star Hagen RN Position: [facility] RN Member Role: Primary Care Nurse Name: Odalis Roy RN Position: [facility] SN RN Member Role: Primary Care Nurse Name: Merline Carlson RN Position: [facility] RN Member Role: Primary Care Nurse Name: Serena Allen RN Position: [facility] Onco RN Member Role: Primary Care Nurse Name: Maura Tsang RN Position: [facility] RN Member Role: Primary Care Nurse Care Team Related Persons Name: KAYCE PARK Address: home [address] [place] [address] Name: SANTIAGO NAZARIO Address: [address] [place] [address]
[2024-03-01 11:14] VITALS: BP 140/88; PULSE 85; RESP 14; O2SAT 97; BMI 33.4
--- OUTSIDE RECORDS SUMMARY | 2024-03-01 11:14 | XMS_ITS | Continuity of Care Document ---
Author Organization [facility] ter Address [address] [place] [address]- Care Team Providers Care Medical Office Manager Name Role Phone Krishna Tapia MD Primary Care Physician Encounter [facility] [place] [facility] [place] [id number] Date(s): 02/02/24 - 02/03/[address] [address]- Encounter Diagnosis Cellulitis(Final) - 02/03/24 Discharge Disposition: A-D/C Home Attending Physician: Tom Amin MD Admitting Physician: Tom Amin MD Referring Physician: Not on Staff, Referring [...] opioid drug. Start Date: 11/07/22 Status: Ordered Bactrim DS 800 mg-160 mg oral tablet 1 tablet, By Mouth, 2 times a day, # 14 tablet, 0 Refills, Maintenance, 02/03/24 0:42:00 EDT, Tablet, [facility], Partial fill upon patient request if the prescription is for a schedule II opioid drug., 1 tablet By Mouth 2 times a day,x7 day... Start Date: 02/03/24 Stop Date: 02/10/24 Status: Ordered brimonidine 0.2% ophthalmic solution 1 [...] 12/31/23 15:18:00 EDT, Route to Pharmacy Electronically, [facility], this is a dose change, please cancel prescription for furosemide 80mg, 173, cm, 05/0... Start Date: 12/31/23 Stop Date: 01/30/24 Status: Ordered gabapentin 300 mg oral capsule 300 mg, 1, capsule, By Mouth, 3 times a day, # 90 capsule, Refills 0, Tot. Refills 0, Maintenance, 08/29/22 8:44:00 EST, Route to Pharmacy Electronically, [facility], Partial fill upon [...] 12/31/23 15:17:00 EDT, Route to Pharmacy Electronically, [facility], This is a dose change, please cancel prescription for metoprolol 50mg, 173, cm, 050... Start Date: 12/31/23 Stop [...] EST, Supply Start Date: 08/29/22 Status: Ordered OxyCODONE IR Tablet 5 mg, Tablet, By Mouth, Once, STAT, 02/02/24 22:09:00 EDT, Stop date 02/02/24 22:09:00 EDT Start Date: 02/02/24 Stop Date: 02/02/24 Status: Completed patiromer 8.4 g oral powder for reconstitution [...] Exam Date Time Procedure Performing Provider Status 02/02/24 10:27 PM Hand Min 3 Views Right Gordon Sims; Ruby (Verified) Notes: (Hand Min 3 Views Right) Reason For Exam: swelling;Pain RESULT: Hand Min 3 Views Right Hand Min 3 Views Right, 3 views Hx of Present Illness: coming from home c o R hand swelling. states he has had increased hand swelling since his dialysis treatment on friday. denies any trauma. has + CMS; Reason: Pain; swelling; Clinical Question(s): Fracture COMPARISON: None. FINDINGS: No fractures or bone lesions. No arthritic changes. There are atherosclerotic vascular calcifications. IMPRESSION: No evidence of acute osseous abnormality. WSN: [id number] Ordering Physician: Siria Bergeron Dictated By: Kennedy Bonilla MD Dictated Date/Time: 02/02/24 10:54 p Reviewed By: Kennedy Bonilla MD Signed By: Kennedy Bonilla MD Signed Date/Time: 02/02/24 10:54 pm Transcribed By: AMY Transcribed Date/Time: 02/02/24 10:53 pm * Exam Date Time Procedure Performing Provider Status 02/02/24 10:26 PM US Doppler Ext Upper Venous Right Justin Flynn; Auth (Verified) Notes: (US Doppler Ext Upper Venous Right) Reason For Exam: swelling in limb;Other: RESULT: US Doppler Ext Upper Venous Right US Doppler Ext Upper Venous Right REASON: Swelling in limb; Clinical Question(s): Thrombosis COMPARISON: None. IMAGING TECHNIQUE: Ultrasound examination of the upper extremity deep venous system was performed using grayscale, color, and spectral wave analysis including response to compression. Assessment includes the contralateral jugular and subclavian vein. FINDINGS: Internal jugular vein: Patent. No thrombosis. Subclavian vein: Patent. No thrombosis. Axillary vein: Patent. No thrombosis. Brachial vein: Patent. No thrombosis. Basilic vein: Patent. No thrombosis. Cephalic vein: Patent. No thrombosis. Contralateral internal jugular vein: Patent. No thrombosis. Contralateral subclavian vein: Patent. No thrombosis. IMPRESSION: No evidence of venous thrombosis. I have personally reviewed the images and I agree with this report. WSN: [id number] Ordering Physician: Siria Bergeron Dictated By: Vicky Garriod DO Dictated Date/Time: 02/02/24 10:34 p Reviewed By: Kennedy Bonilla MD Signed By: Kennedy Bonilla MD Signed Date/Time: 02/02/24 10:39 pm Transcribed By: AMY Transcribed Date/Time: 02/02/24 10:29 pm Vital Signs Most recent to oldest [Reference Range]: 1 2 3 Height 173 cm (02/03/24 12:14 AM) 173 cm (02/02/24 8:30 PM) 173 cm (02/02/24 6:33 PM) Weight 100 kg (02/03/24 12:14 AM) 100 kg (02/02/24 8:30 PM) 100 kg (02/02/24 6:33 PM) Oxygen Saturation [94-100 %] 94 % (02/03/24 12:14 AM) 99 % (02/02/24 8:30 PM) 98 % (02/02/24 6:33 PM) Pulse Rate [55-90 bpm] 84 bpm (02/03/24 12:14 AM) 84 bpm (02/02/24 8:30 PM) 83 bpm (02/02/24 6:33 PM) Body Mass Index [18.5-24.99 kg/m2] 33.41 kg/m2 *>HHI* (02/03/24 12:14 AM) 33.41 kg/m2 *>HHI* (02/02/24 6:33 PM) Blood Pressure [90-138/55-84 mm Hg] 182/85mm Hg *H* (02/03/24 12:14 AM) 170/81mm Hg *H* (02/02/24 8:30 PM) 147/73mm Hg *H* (02/02/24 6:33 PM) Respiratory Rate [16-30 br/min] 16 br/min (02/03/24 12:14 AM) 18 br/min (02/02/24 10:51 PM) 18 br/min (02/02/24 8:30 PM) Temperature [96.8-100.4 DegF] 98.5 DegF (02/03/24 12:37 AM) 98.5 DegF (02/02/24 8:30 PM) 98.2 DegF (02/02/24 6:33 PM) Mode of Delivery (Oxygen) Room air (02/03/24 12:14 AM) Room air (02/02/24 8:30 PM) Room air (02/02/24 6:33 PM) Blood pressure sites Arm, right (02/03/24 12:14 AM) Arm, right (02/02/24 8:30 PM) Arm, right (02/02/24 6:33 PM) Temperature Route Oral (02/03/24 12:37 AM) Oral (02/02/24 8:30 PM) Oral (02/02/24 6:33 PM) Dry Weight 100 kg (02/03/24 12:14 AM) 100 kg (02/02/24 8:30 PM) 100 kg (02/02/24 6:33 PM) Weight Obtained Via Patient/family state d (02/02/24 6:33 PM) Dry Weight Obtained Via Patient/family s tated (02/02/24 6:33 PM) Social History Social History Type Response Smoking Status Never smoker entered on: 01/06/17 Sex Implantable Device List Procedure Provider Procedure Date Device Type Site Creation Arteriovenous Graft Upper Extre Josef Adams MD 03/12/21 Unknown Arm Left Device Identifier Serial Number Lot or Batch Number Manufacturing Date Expiration Date Distinct Identification Code MRI Safety Implantable Status Assigning Authority Unknown [id number] Unknown Unknown 09/26/25 Unknown Unknown Active Unknown Note * Elyssa BARRON, Siria [place]: PERFORM Event Display: Patient Education Leaflets Authored Date: [id number] Cellulitis ?? [id number] Cellulitis Cellulitis is an infection of the deep layers of skin. A break in the skin, such as a cut or scratch, can let bacteria under the skin. Cellulitis causes the affected skin to become red, swollen, warm, and sore. The reddened areas havea border you can see. An open sore may leak fluid (pus). You may have a fever, chills, and pain. Cellulitis is treated with antibiotics taken for 7 to 10 days. An open sore may be cleaned and covered with cool wet gauze. Symptoms should get better 1 to 2 days after treatment is started. Make sure to take all the antibiotics for the full number of days until they are gone. Keep taking the medicine even if your symptoms go away. If not treated, cellulitis can get into the bloodstream and lymph nodes. The infection can then spread throughout the body. This causes serious illness. Home care Follow these tips: ??? Limit the use of the part of your body with cellulitis.? If the infection is on your leg, keep your leg raised while sitting. This helps reduce swelling. ??? Take all of the antibiotic medicine exactly as directed until it is gone. Don't miss any doses, especially duringthe first 7 days. Finish taking all of the medicine even when your symptoms get better. ??? Keep the affected area clean and dry. ??? Wash your hands with soap and clean, running water before and after touching your skin. Anyone else who touches your skin should also wash his or her hands. Don't share towels. ?? Follow-up care Follow up with your healthcare provider, or as advised. If your infection doesn't go away after finishing the first antibiotic, your healthcare provider will prescribe a different one. ?? When to seek medical advice Call your healthcare provider right away if any of these occur: ??? Red areas that spread ??? Swelling or pain that gets worse ??? Fluid leaking from the skin (pus) ??? Fever higher of 100.4?? F (38.0?? C) or higher after 2 days on antibiotics ?? Last Reviewed Date: 2021 ?? 2724-2119 [employer]. All rights reserved. This information is not intended as a substitute for professional medical care. Always follow your healthcare professional's instructions. ?? Patient Care team information Care Team Personnel Name: Wild Santos RN Position: [facility] RN Member Role: Primary Care Nurse Name: Dolly Mccormick RN Position: [facility] RN Member Role: Primary Care Nurse Name: Lucy Garcia RN Position: [facility] ED RN W/OE and Tasks Member Role: Primary Care Nurse Name: Julianna Mazariegos RN Position: [facility] RN Member Role: Primary Care Nurse Name: Simin Rosario RN Position: [facility] RN Member Role: Primary Care Nurse Name: Nupur Young RN Position: [facility] RN Member Role: Primary Care Nurse Name: Faby Saleh RN Position: [facility] RN Member Role: Primary Care Nurse Name: Janie Kunz RN Position: [facility] RN Member Role: Primary Care Nurse Name: Krishna Tapia MD Position: [facility] Outreach Member Role: PCP Address: Address: [address] [place] [address] [place] [address]- [place] Name: Estella Mann Position: [facility] Associate Professional Member Role: Lifetime Consulting Provider Address: Address: [address] [place] [address] [address] [facility] [place] [address]- [place] Name: Miguelangel Cancino MD Position: [facility] Renal MD Member Role: Lifetime Consulting Physician Address: Address: [address] [place] [address] [address] [facility] [address]- [place] Name: Filomena Austin RN Position: [facility] RN Member Role: Primary Care Nurse Name: Venkatesh Tirado RN Position: [facility] Outreach Member Role: Primary Care Nurse Name: Maddy Skelton RN Position: [facility] RN Member Role: Primary Care Nurse Name: Elise Yao LPN Position: [facility] RN Member Role: Primary Care Nurse Name: Barak Shaw DO Position: [facility] Renal MD Member Role: Lifetime Consulting Physician Address: Address: [address] [place] [address] [address] [facility] [place] [address]- Name: Tayla Fine Position: [facility] Outreach Member Role: Lifetime Consulting Physician Name: Niki Montes RN Position: [facility] RN Member Role: Primary Care Nurse Name: Stella Calhoun RN Position: [facility] RN Member Role: Primary Care Nurse Name: Wes Lezama Position: [facility] Associate Professional Member Role: Lifetime Consulting Provider Address: Address: [address] [place] [address]- Name: Kinjal Macias RN Position: [facility] RN Member Role: Primary Care Nurse Name: Estephania Pizano RN Position: [facility] ED RN W/OE and Tasks Member Role: Primary Care Nurse Name: Zita Barrow RN Position: [facility] AMB Nurse Member Role: Primary Care Nurse Name: Alexis Brooke MD Position: [facility] Renal MD Member Role: Lifetime Consulting Physician Address: Address: [address] [place] [address] [address] [facility] [place], [place] [address]- Name: Chantelle Villareal RN Position: [facility] RN Member Role: Primary Care Nurse Name: Brisa Michaels RN Position: [facility] RN Member Role: Primary Care Nurse Name: London Chau RN Position: [facility] RN Member Role: Primary Care Nurse Name: Neelima Fritz RN Position: [facility] RN Member Role: Primary Care Nurse Name: Ana Schafer RN Position: [facility] RN Member Role: Primary Care Nurse Name: Liz Aguilera RN Position: [facility] Outreach Member Role: Lifetime Consulting Physician Name: Reyna Dumont RN Position: [facility] RN Member Role: Primary Care Nurse Name: Sudhir Chan Position: [facility] Outreach Member Role: Lifetime Consulting Physician Name: Roselia Crain RN Position: [facility] RN Member Role: Primary Care Nurse Name: Marcelo Joy MD Position: [facility] Renal MD Member Role: Lifetime Consulting Physician Address: Address: [address] [place] [address] [facility] [place], [place] [address] Name: Nell Copeland RN Position: [facility] RN Member Role: Primary Care Nurse Name: Star Hagen RN Position: [facility] RN Member Role: Primary Care Nurse Name: Odalis Roy RN Position: [facility] SN RN Member Role: Primary Care Nurse Name: Merline Carlson RN Position: [facility] RN Member Role: Primary Care Nurse Name: Serena Allen RN Position: [facility] Onco RN Member Role: Primary Care Nurse Name: Maura Tsang RN Position: [facility] RN Member Role: Primary Care Nurse Care Team Related Persons Name: KAYCE PARK Address: [address] [place] [address] Name: SANTIAGO NAZARIO Address: [address] [place] [address]
--- OUTSIDE RECORDS SUMMARY | 2024-03-01 11:15 | XMS_ITS | Continuity of Care Document ---
Author Organization [facility] Address [address] [place] [address]- Care Team Providers Care Clock And Watch Hands Mounter Name Role Phone Krishna Tapia MD Primary Care Physician [place] [facility] [place]/24 [facility] [address] [place] [address]- Attending Physician: Kyler Ny Admitting Physician: Kyler [...] 0 Refills, Maintenance, 02/03/24 0:42:00 EDT, Tablet, [facility], Partial fill upon patient request if [...] 12/31/23 15:18:00 EDT, Route to Pharmacy Electronically, [facility], this is a dose change, please cancel prescription for furosemide 80mg, 173, cm, 050... Start Date: 12/31/23 Stop Date: 01/30/24 Status: Ordered gabapentin 300 mg oral capsule 300 mg, 1, capsule, By Mouth, 3 times a day, # 90 capsule, Refills 0, Tot. Refills 0, Maintenance, 08/29/22 8:44:00 EST, Route to Pharmacy Electronically, [facility], Partial fill upon patient request if [...] 12/31/23 15:17:00 EDT, Route to Pharmacy Electronically, [facility], This is a dose change, please cancel [...] 1 Refills, Maintenance, 12/31/23 13:15:00 EDT, Capsule, [facility], Partial fill upon patient [...] MRI Safety Implantable Status Assigning Authority Unknown [id number] Unknown Unknown 09/26/25 Unknown Unknown Active Unknown Patient Care team information Care Team Personnel Name: Wild Santos RN Position: [facility] RN Member Role: Primary Care Nurse Name: Dolly Mccormick RN Position: [facility] RN Member Role: Primary Care Nurse Name: Lucy Garcia RN Position: [facility] ED RN W/OE and Tasks Member Role: Primary Care Nurse Name: Julianna Mazariegos RN Position: [facility] RN Member Role: Primary Care Nurse Name: Simin Rosario RN Position: [facility] RN Member Role: Primary Care Nurse Name: Nupur Young RN Position: [facility] RN Member Role: Primary Care Nurse Name: Faby Saleh RN Position: [facility] RN Member Role: Primary Care Nurse Name: Janie Kunz RN Position: [facility] RN Member Role: Primary Care Nurse Name: Krishna Tapia MD Position: [facility] Outreach Member Role: PCP Address: Address: [address] [place] [address] [place] [address]- Name: Estella Mann Position: [facility] Associate Professional Member Role: Lifetime Consulting Provider Address: Address: [address] [place] [address] [address] [facility] [place] [address]- Name: Miguelangel Cancino MD Position: [facility] Renal MD Member Role: Lifetime Consulting Physician Address: Address: [address] [place] [address] [address] [facility] [place] [place] - Name: Filomena Austin RN Position: [facility] RN Member Role: Primary Care Nurse Name: Venkatesh Tirado RN Position: [facility] Outreach Member Role: Primary Care Nurse Name: Maddy Skelton RN Position: [facility] RN Member Role: Primary Care Nurse Name: Elise Yao LPN Position: [facility] RN Member Role: Primary Care Nurse Name: Barak Shaw DO Position: [facility] Renal MD Member Role: Lifetime Consulting Physician Address: Address: [address] [place] [address] [address] [facility] [place] [address]- Name: Tayla Fine Position: [facility] Outreach Member Role: Lifetime Consulting Physician Name: Niki Montes RN Position: [facility] RN Member Role: Primary Care Nurse Name: Stella Calhoun RN Position: [facility] RN Member Role: Primary Care Nurse Name: Wes Lezama Position: [facility] Associate Professional Member Role: Lifetime Consulting Provider Address: Address: [address] [place] [address]- Name: Kinjal Macias RN Position: [facility] RN Member Role: Primary Care Nurse Name: Estephania Pizano RN Position: [facility] ED RN W/OE and Tasks Member Role: Primary Care Nurse Name: Zita Barrow RN Position: [facility] AMB Nurse Member Role: Primary Care Nurse Name: Alexis Brooke MD Position: [facility] Renal MD Member Role: Lifetime Consulting Physician Address: Address: [address] [facility] [address] [facility] [place] [address]- Name: Chantelle Villareal RN Position: [facility] RN Member Role: Primary Care Nurse Name: Brisa Michaels RN Position: [facility] RN Member Role: Primary Care Nurse Name: London Chau RN Position: [facility] RN Member Role: Primary Care Nurse Name: Neelima Fritz RN Position: [facility] RN Member Role: Primary Care Nurse Name: Ana Schafer RN Position: [facility] RN Member Role: Primary Care Nurse Name: Liz Aguilera RN Position: [facility] Outreach Member Role: Lifetime Consulting Physician Name: Reyna Dumont RN Position: [facility] RN Member Role: Primary Care Nurse Name: Sudhir Chan Position: [facility] Outreach Member Role: Lifetime Consulting Physician Name: Roselia Crain RN Position: [facility] RN Member Role: Primary Care Nurse Name: Marcelo Joy MD Position: [facility] Renal MD Member Role: Lifetime Consulting Physician Address: Address: [address] [place] [address] [facility] [address] Name: Nell Copeland RN Position: [facility] RN Member Role: Primary Care Nurse Name: Star Hagen RN Position: [facility] RN Member Role: Primary Care Nurse Name: Odalis Roy RN Position: [facility] SN RN Member Role: Primary Care Nurse Name: Merline Carlson RN Position: [facility] RN Member Role: Primary Care Nurse Name: Serena Allen RN Position: [facility] Onco RN Member Role: Primary Care Nurse Name: Maura Tsang RN Position: [facility] RN Member Role: Primary Care Nurse Care Team Related Persons Name: KAYCE PARK Address: [address] [place] [address] Name: NAZARIO SANTIAGO Address: [address] [place] [address]
--- OUTSIDE RECORDS SUMMARY | 2024-03-01 11:16 | XMS_ITS | Continuity of Care Document ---
Author Organization [facility] Address [address] [place] [address], [address] d Floor, [address] [place] [phone]- Care Team Providers Care Hospital Director Name Role Phone Krishna Tapia MD Primary Care Physician [place] [facility] [place] 02/19/24 [facility] [address] [facility] 3rd Floor, [address] [place] [address]- Allergies, Adverse Reactions, Alerts Substance Reaction Severity [...] 0 Refills, Maintenance, 02/03/24 0:42:00 EDT, Tablet, [facility], Partial fill upon patient request if [...] 12/31/23 15:18:00 EDT, Route to Pharmacy Electronically, [facility], this is a dose change, please cancel prescription for furosemide 80mg, 173, cm, ... Start Date: 12/31/23 Stop Date: 01/30/24 Status: Ordered gabapentin 300 mg oral capsule 300 mg, 1, capsule, By Mouth, 3 times a day, # 90 capsule, Refills 0, Tot. Refills 0, Maintenance, 08/29/22 8:44:00 EST, Route to Pharmacy Electronically, [facility], Partial fill upon patient request if [...] 12/31/23 15:17:00 EDT, Route to Pharmacy Electronically, [facility], This is a dose change, please [...] 1 Refills, Maintenance, 12/31/23 13:15:00 EDT, Capsule, [facility], Partial fill upon patient [...] MRI Safety Implantable Status Assigning Authority Unknown [id number] Unknown Unknown 09/26/25 Unknown Unknown Active Unknown Patient Care team information Care Team Personnel Name: Wild Santos RN Position: [facility] RN Member Role: Primary Care Nurse Name: Dolly Mccormick RN Position: [facility] RN Member Role: Primary Care Nurse Name: Lucy Garcia RN Position: [facility] ED RN W/OE and Tasks Member Role: Primary Care Nurse Name: Julianna Mazariegos RN Position: [facility] RN Member Role: Primary Care Nurse Name: Simin Rosario RN Position: [facility] RN Member Role: Primary Care Nurse Name: Nupur Young RN Position: [facility] RN Member Role: Primary Care Nurse Name: Faby Saleh RN Position: [facility] RN Member Role: Primary Care Nurse Name: Janie Kunz RN Position: [facility] RN Member Role: Primary Care Nurse Name: Krishna Tapia MD Position: [facility] Outreach Member Role: PCP Address: Address: [address] [place] [address] Krishna Layne [place] - Name: Estella Mann Position: [facility] Associate Professional Member Role: Lifetime Consulting Provider Address: Address: [address] [place] [address] [address] [facility] [place] - Name: Miguelangel Cancino MD Position: [facility] Renal MD Member Role: Lifetime Consulting Physician Address: Address: [address] [place] [address] [id number] [facility] [place], [place] - Name: Filomena Austin RN Position: [facility] RN Member Role: Primary Care Nurse Name: Venkatesh Tirado RN Position: [facility] Outreach Member Role: Primary Care Nurse Name: Maddy Skelton RN Position: [facility] RN Member Role: Primary Care Nurse Name: Elise Yao LPN Position: [facility] RN Member Role: Primary Care Nurse Name: Barak Shaw DO Position: [facility] Renal MD Member Role: Lifetime Consulting Physician Address: Address: [address] [place] [address] [address] [facility] [place] [address]- Name: Tayla Fine Position: [facility] Outreach Member Role: Lifetime Consulting Physician Name: Niki Montes RN Position: [facility] RN Member Role: Primary Care Nurse Name: Stella Calhoun RN Position: [facility] RN Member Role: Primary Care Nurse Name: Wes Lezama Position: [facility] Associate Professional Member Role: Lifetime Consulting Provider Address: Address: [address] [place] [address]- Name: Kinjal Macias RN Position: [facility] RN Member Role: Primary Care Nurse Name: Estephania Pizano RN Position: [facility] ED RN W/OE and Tasks Member Role: Primary Care Nurse Name: Zita Barrow RN Position: [facility] AMB Nurse Member Role: Primary Care Nurse Name: Alexis Brooke MD Position: [facility] Renal MD Member Role: Lifetime Consulting Physician Address: Address: [address] [facility] [address] [facility] [place] - Name: Chantelle Villareal RN Position: [facility] RN Member Role: Primary Care Nurse Name: Brisa Michaels RN Position: [facility] RN Member Role: Primary Care Nurse Name: London Chau RN Position: [facility] RN Member Role: Primary Care Nurse Name: Neelima Fritz RN Position: [facility] RN Member Role: Primary Care Nurse Name: Ana Schafer RN Position: [facility] RN Member Role: Primary Care Nurse Name: Liz Aguilera RN Position: [facility] Outreach Member Role: Lifetime Consulting Physician Name: Reyna Dumont RN Position: [facility] RN Member Role: Primary Care Nurse Name: Sudhir Chan Position: [facility] Outreach Member Role: Lifetime Consulting Physician Name: Roselia Crain RN Position: [facility] RN Member Role: Primary Care Nurse Name: Marcelo Joy MD Position: [facility] Renal MD Member Role: Lifetime Consulting Physician Address: Address: [address] [place] [address] [facility] [address] Name: Nell Copeland RN Position: [facility] RN Member Role: Primary Care Nurse Name: Star Hagen RN Position: [facility] RN Member Role: Primary Care Nurse Name: Odalis Roy RN Position: [facility] SN RN Member Role: Primary Care Nurse Name: Merlnie Carlson RN Position: [facility] RN Member Role: Primary Care Nurse Name: Serena Allen RN Position: [facility] Onco RN Member Role: Primary Care Nurse Name: Maura Tsang RN Position: [facility] RN Member Role: Primary Care Nurse Care Team Related Persons Name: KAYCE PARK Address: [address] [place] [address] Name: SANTIAGO NAZARIO Address: home [address] [place] [address]
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
== END 2024-03-01 11:29 | disposition home or self-care (01) ==
LOC: HO.PMC 11:09
PROVIDERS: PCP Internal Medicine; Visit Provider Internal Medicine
DX: E11.40 Type 2 diabetes mellitus with diabetic neuropathy, unspecified (principal); Z96.82 Presence of neurostimulator
CPT/HCPCS: 99213

== ENCOUNTER → 2024-03-01 11:09 | Outpatient (BNVA) | payer OTHER, MEDICAID, SELFPAY | PROVIDERS: PCP Internal Medicine; Visit Provider Internal Medicine ==